=== PATIENT | male | born 1960 | race Caucasian/White ===

== ENCOUNTER 2018-11-07 15:38 | Emergency (ER) | payer MEDICARE, SELFPAY ==
[2018-11-07 15:41] VITALS: BP 114/70; PULSE 70; RESP 17; TEMP 36.7; O2SAT 96; BMI 25.0
--- NOTE | 2018-11-07 17:20 | US_ITS ---
STUDY: VENOUS DOPPLER ULTRASOUND - RIGHT LOWER EXTREMITY REASON FOR EXAM: Male, 58 years old. Swelling, rule out DVT TECHNIQUE: Ultrasound evaluation of the deep vein system to include humphrey-scale imaging and compression was performed. Humphrey-scale imaging and Doppler sonographic evaluation, including duplex spectral analysis and qualitative color flow sonography, was performed. COMPARISON: None. FINDINGS: Common Femoral Vein: Normal compression, spontaneity and augmentation. Normal color Doppler. Common Femoral Vein/Greater Saphenous Junction: Normal compression, spontaneity and augmentation. Normal color Doppler. Femoral Proximal: Normal compression, spontaneity and augmentation. Normal color Doppler. Femoral Middle: Normal compression, spontaneity and augmentation. Normal color Doppler. Femoral Distal: Normal compression, spontaneity and augmentation. Normal color Doppler. Popliteal Vein: Normal compression, spontaneity and augmentation. Normal color Doppler. US/Venous Duplex Imag/Limited/Uni IMPRESSION: Normal venous Doppler ultrasound of the lower extremity. Electronically Signed: Ranjit Paz DO at 18:27 EDT Tel , Service support ,
[2018-11-07 17:51] LABS: Absolute Lymphocyte Count 2.79 X10^3/uL (0.83-4.51); Absolute Neutrophil Count 5.9 X10^3/uL (2.0-7.7); Eosinophil# 0.37 X10^3/uL; Eosinophils% 3.8 % (0-5); Hematocrit 49.5 % (40-54); Hemoglobin 16.7 g/dL (13.0-16.5); Lymphocyte # 2.79 X10^3/ul (4.0); Lymphocyte % 28.5 % (19-41); Mean Corp Hgb Conc 33.7 g/dL (32-36); Mean Corpuscular Hgb 29.9 pg (27.0-32.0); Mean Corpuscular Volume 88.6 fL (80-94); Mean Platelet Vol. 10.1 fl (6.2-12.0); Monocyte# 0.56 X10^3/uL; Monocyte% 5.7 % (0-10); NRBC Flagged by Analyzer 0 % (0-5); Neutrophil # 5.92 X10^3/uL (2.7-7.7); Neutrophil % 60.6 % (47-70); Platelet Count 184 K/mm3 (150-450); RBC Distribution Width CV 15.3 % (11.6-14.6); RBC Distribution Width SD 49.6 fl (35.1-43.9); Red Blood Count 5.59 M/mm3 (4.6-6.2); White Blood Count 9.8 K/mm3 (4.4-11.0)
[2018-11-07] MEDS: Morphine 4 MG/ML Syringe IV (17:55)
[2018-11-07 18:04] LABS: Anion Gap 7 (5-15); BUN 21 mg/dL (7-18); BUN/Creat Ratio 15.8 RATIO (10-20); Calcium,Total 9.2 mg/dL (8.5-10.1); Chloride 101 mmol/L (98-107); Creatinine, Serum 1.33 mg/dL (0.70-1.30); EST Glomerular Filtration Rate 59 mL/min (>60); Est Glom Filt Rate - Afr Amer 71 mL/min (>60); Estimated Creatinine Clearance 57.98 ml/min; Glucose 82 mg/dL (74-106); Sodium Level 138 mmol/L (136-145)
--- NOTE | 2018-11-07 19:13 | ED.DCSUM_ITS ---
- ER Visit Summary Date of Service: 11/07/18 Chief Complaint: Right leg pain History of Present Illness: The patient is a 58 M who presents with pain in his right lower extremity that has been getting progressively worse over the past week. She describes the pain as sharp, aching, and burning. Patient does admit to some tingling in his right foot. Patient states that sometimes when he is standing on his foot it becomes more red than usual. Denies any fevers or chills. Patient does admit to some mild back pain. Patient denies any weakness. Patient denies any coldness of his foot. Physical Examination: Vital signs are stable. Patient is afebrile. Patient is in no acute distress. Heart was regular rate and rhythm. Lungs are clear and equal bilateral. Abdomen is soft and nontender. Cranial nerves II through XII are intact. There are no focal motor or sensory deficits noted. Skin is warm dry. There is some mild erythema over the dorsum of the right foot. There is no warmth. There is no discharge or drainage. There is some mild tenderness of the right lower leg. Test Results: CBC and basic metabolic profile were obtained and were within normal limits with exception of a mild elevation of creatinine of 1.33. Venous duplex of the right lower extremity was obtained and was negative. Emergency Department Course and Treatment: Patient became concerned that he has a cyst on his back that drains occasionally. Patient states he was told that this goes into his final canal. Patient states that a doctor once told him that he needed to put a tube in there to continuously drain the cyst. On reevaluation the cyst appeared to be a sebaceous cyst. Moderate amount of sebaceous material was expressed. There is no erythema. There is no discharge or drainage. Patient was advised that his leg pain may be related to neuropathy. Patient was advised that it is not from a DVT or cellulitis. It is not from an acute vascular occlusion. Patient was instructed to follow-up with his primary care physician for further evaluation. Patient understood and was agreeable with the plan. All questions were answered. Disposition: Discharge home Impression: 1. Right lower extremity pain This note was generated with Snipiation software. It may contain incorrect words, spelling, and punctuation that were not noted in review of the chart ulysses or to signing ED Disposition - Plan for ED Patient: Disposition: Home or Assisted Living Diagnosis: Right leg pain Instructions: NEUROPATHY, Peripheral Prescriptions: Oxycodone HCl/Acetaminophen [Percocet 5/325] 1 tab PO Q6H PRN PRN 3 Days #12 tab PRN Reason: Pain Prescription Printed Referrals: Care Physician,No Primary [Primary Care Provider] - Paulette Evans MD [STAFF PHYSICIAN] - 3-5 Days
[2018-11-07 19:45] VITALS: BP 118/76; PULSE 72; RESP 17; O2SAT 97
--- NOTE | 2018-11-07 20:19 | ED.RN ---
PT STATED HE IS ALLERGIC TO PERCOCET, MADE AWARE, NO NEW PRESCRIPTION WAS WRITTEN ADVISED PT TO TAKE OTC PAIN MEDICATIONS UNTIL HIS APPOINTMENT WITH PCP. WILL ADD PERCOCET TO PT ALLERGY LIST. PERCOCET PRESCRIPTION WAS PLACED IN THE SHREDDER BOX, DR. SIGALA WITNESSED DESTRUCTION OF SAID PRESCRIPTION.
== END 2018-11-07 19:48 | disposition home or self-care (01) ==
PROVIDERS: Emergency Provider Emergency Medicine
DX: M79.604 Pain in right leg (principal); L72.3 Sebaceous cyst; M54.9 Dorsalgia, unspecified; I25.10 Atherosclerotic heart disease of native coronary artery without angina pectoris; J45.909 Unspecified asthma, uncomplicated; J02.9 Acute pharyngitis, unspecified; Z72.0 Tobacco use; Z79.84 Long term (current) use of oral hypoglycemic drugs; Z79.02 Long term (current) use of antithrombotics/antiplatelets; Z79.82 Long term (current) use of aspirin; Z79.899 Other long term (current) drug therapy; Z95.0 Presence of cardiac pacemaker
CPT/HCPCS: 80048; 85025; 93971; 96374; 99283; A4216

== ENCOUNTER → 2018-11-11 10:25 | Outpatient (CLI) | payer MEDICARE, SELFPAY ==
[2018-11-07 15:41] VITALS: BMI 25.0
--- NOTE | 2018-11-11 10:31 | ART_ITS ---
Reason For Study: Foot pain,numbness and tingling. Procedure A bilateral lower extremity continuous wave Doppler with analog waveform analysis and ankle brachial indexes. Left Segmental Pressures Left brachial= 100mmHg. Left posterior tibial artery = 60mmHg. The left posterior tibial artery waveforms are monophasic. Right Segmental Pressures Right brachial= 103mmHg. Right dorsalis pedis artery = 40mmHg. The right dorsalis pedis waveforms are monophasic. Indices The right ankle brachial index by the dorsalis pedis is 0.39. The left ankle brachial index by the posterior tibial artery is 0.58. Interpretation Summary No flow noted in the right posterior tibial artery Severe, multisegmental disease right tibialis anterior Moderately severe disease left posterior tibial No flow noted in the left tibial anterior Digital waveforms are flat bilateral consistent with severe multisegmental disease/impending loss. Ordering Physician: Oarl Manuel Referring Physician: Oral Manuel Performed By: Frances Barrera RVT
== END ==
PROVIDERS: Family Provider Family Medicine; PCP Family Medicine; Referring Provider Family Medicine; Visit Provider Family Medicine
DX: R20.0 Anesthesia of skin (principal); R20.2 Paresthesia of skin
CPT/HCPCS: 93922

== ENCOUNTER → 2018-12-05 17:28 | Outpatient (CLI) | payer MEDICARE, SELFPAY ==
[2018-11-15 14:01] VITALS: BMI 25.0
--- NOTE | 2018-12-05 17:35 | RAD_ITS ---
STUDY: X-RAY - LUMBAR SPINE REASON FOR EXAM: Male, 58 years old. Low back pain, prior traumas TECHNIQUE: 3 view(s) of the lumbar spine were obtained. COMPARISON: None FINDINGS: Normal lumbar lordosis. There is no substantial scoliosis. There is a normal alignment of the vertebrae. Mineralization is diffusely decreased. Normal vertebral bodies and endplates. Normal disc space heights. The soft tissue structures are unremarkable. Cholecystectomy clips are in place. Pacemaker lead is present in the right ventricle. RAD/Lumbar Spine 2 or 3 Views IMPRESSION: Osteopenia, possibly early osteoporosis. Otherwise unremarkable age-appropriate lumbar spine. Electronically Signed: Oumar Sun, at 18:44 EDT Tel , Service support ,
[2018-12-05 18:11] LABS: Amphetamine Urine VISTA NEGATIVE (<1000 ng/mL); Barbiturate Urine VISTA NEGATIVE (< 200 ng/mL); Benzodiazepine Urine VISTA NEGATIVE (< 200 ng/mL); Cocaine Urine VISTA NEGATIVE (< 300 ng/mL); Ecstacy Urine VISTA NEGATIVE (< 500 ng/mL); Methadone Urine VISTA NEGATIVE (< 300 ng/mL); PCP Urine VISTA NEGATIVE (< 25 ng/mL); THC Urine VISTA NEGATIVE (< 50 ng/mL); Vista UDS pH Range 5
== END ==
PROVIDERS: Family Provider Family Medicine; PCP Family Medicine; Referring Provider Anesthesiology Pain Medicine; Visit Provider Anesthesiology Pain Medicine
DX: F11.20 Opioid dependence, uncomplicated (principal); M54.9 Dorsalgia, unspecified
CPT/HCPCS: 36415; 72100; 80307

== ENCOUNTER 2018-12-12 20:52 | Inpatient (IN) | payer MEDICARE, SELFPAY ==
[2018-11-15 14:01] VITALS: BMI 25.0
[2018-12-12 20:53] VITALS: BP 122/83; PULSE 99; RESP 23; TEMP 36.7; O2SAT 95; BMI 27.2
[2018-12-12 20:56] VITALS: PULSE 101; RESP 28; O2SAT 95
--- NOTE | 2018-12-12 21:10 | EKG12_ITS ---
Test Reason : CP Blood Pressure : / mmHG Vent. Rate : 101 BPM Atrial Rate : 101 BPM P-R Int : 174 ms QRS Dur : 128 ms QT Int : 380 ms P-R-T Axes : 042 109 060 degrees QTc Int : 492 ms Sinus tachycardia Right bundle branch block Anterolateral infarct , age undetermined Abnormal ECG Confirmed by YELENA TELLES ([id number]), news copy editor MARILUZ PAGE ([id number]) on 12/19/2018 9:01:20 AM Referred By: Shalini Marion Confirmed By:YELENA TELLES
--- NOTE | 2018-12-12 21:15 | RAD_ITS ---
STUDY: X-RAY CHEST REASON FOR EXAM: Male, 58 years old. Chest pain TECHNIQUE: Frontal view of the chest COMPARISON: None. FINDINGS: Left chest pacemaker is present. Mild pulmonary vascular prominence is present. There is no consolidation. There are no pleural effusions. There is no pneumothorax. The heart is normal in size. The visualized osseous structures are within normal limits. RAD/Chest 1 View (Portable) IMPRESSION: Mild pulmonary vascular prominence. No consolidation. Electronically Signed: Wilian Emerson, at 21:29 EDT Tel , Service support ,
[2018-12-12 21:16] VITALS: BP 114/75; PULSE 90
[2018-12-12] MEDS: Nitroglycerin SL (ED/IMG/CATH) 0.4 MG TABLET SUBLINGUAL ×2 (21:16→21:23)
[2018-12-12 21:18] LABS: Absolute Lymphocyte Count 3.53 X10^3/uL (0.83-4.51); Absolute Neutrophil Count 5.2 X10^3/uL (2.0-7.7); Basophil# 0.15 X10^3/uL; Basophil% 1.5 % (0-1); Eosinophil# 0.58 X10^3/uL; Eosinophils% 5.7 % (0-5); Hematocrit 49.5 % (40-54); Hemoglobin 16.6 g/dL (13.0-16.5); Lymphocyte # 3.53 X10^3/ul (4.0); Lymphocyte % 34.7 % (19-41); Mean Corp Hgb Conc 33.5 g/dL (32-36); Mean Corpuscular Hgb 30.5 pg (27.0-32.0); Mean Platelet Vol. 10.2 fl (6.2-12.0); Monocyte# 0.62 X10^3/uL; Monocyte% 6.1 % (0-10); NRBC Flagged by Analyzer 0 % (0-5); Neutrophil # 5.24 X10^3/uL (2.7-7.7); Neutrophil % 51.5 % (47-70); Platelet Count 244 K/mm3 (150-450); RBC Distribution Width CV 14.7 % (11.6-14.6); Red Blood Count 5.44 M/mm3 (4.6-6.2); White Blood Count 10.2 K/mm3 (4.4-11.0)
[2018-12-12 21:22] LABS: International Normalized Ratio 1.1; Prothrombin Time (Protime)PT. 13.7 SECONDS (11.7-14.9)
[2018-12-12 21:23] VITALS: BP 103/88; PULSE 96
[2018-12-12 21:23] LABS: Partial Thromboplast Time 30.9 Seconds (24.1-36.2)
[2018-12-12] MEDS: Morphine 4 MG/ML Syringe IV ×2 (21:32→22:55)
[2018-12-12 21:33] LABS: Anion Gap 5 (5-15); BUN 20 mg/dL (7-18); BUN/Creat Ratio 18.5 RATIO (10-20); Calcium,Total 9.4 mg/dL (8.5-10.1); Chloride 102 mmol/L (98-107); Creatinine, Serum 1.08 mg/dL (0.70-1.30); EST Glomerular Filtration Rate 75 mL/min (>60); Est Glom Filt Rate - Afr Amer 91 mL/min (>60); Glucose 112 mg/dL (74-106); Potassium 3.8 mmol/L (3.5-5.1); Sodium Level 137 mmol/L (136-145)
--- NOTE | 2018-12-12 22:08 | CT_ITS ---
HISTORY: CHEST PAIN, HX ASTHMA, COPD,CVA, PVD, HTN ADDITIONAL HISTORY: None provided. TECHNIQUE: CT angiogram images of the chest were obtained with 100 mL Isovue 370 IV contrast as per pulmonary angiogram protocol. 3D MIP images used to aid in evaluation for pulmonary embolism. Number of images including paperwork: 1264 A radiation dose optimization technique was used for this scan. COMPARISON: None FINDINGS: Artifact from the patient's arms in support apparatus. PULMONARY ARTERIES: No pulmonary arterial filling defects. AORTA AND GREAT VESSELS: No dissection. Vascular tortuosity. Moderate atherosclerotic plaque. HEART/PERICARDIUM: Mildly enlarged heart. Coronary calcification, coronary stenting and CABG changes. MEDIASTINUM: Unremarkable. ADENOPATHY: Small mediastinal and hilar nodes, largest borderline by size criteria. THYROID: Unremarkable visualized portions. LUNG PARENCHYMA: No consolidation or mass. Dependent atelectasis. 5 mm subpleural left lower lobe lung nodule, series 2 image 99. Paraseptal emphysema at the apices. PLEURAL SPACES: Unremarkable. UPPER ABDOMEN: Unremarkable. OSSEOUS AND SOFT TISSUE STRUCTURES: No acute skeletal findings. CT/CTA Chest W/WO Contrast IMPRESSION: No pulmonary embolus detected. Left lower lobe 5 mm nodule. Consider follow-up in 12 months of the patient is considered to be high risk for lung cancer. Individualized dose optimization techniques were used for this CT. at 2183 Reported and signed by: Vania Osullivan MD Electronically Signed: Vania Osullivan MD at 22:39 EDT Tel , Service support ,
[2018-12-12 22:31] VITALS: BP 103/65; PULSE 82; RESP 16; O2SAT 96
--- NOTE | 2018-12-12 22:35 | EKG12_ITS ---
Test Reason : REPEAT Blood Pressure : / mmHG Vent. Rate : 077 BPM Atrial Rate : 077 BPM P-R Int : 162 ms QRS Dur : 136 ms QT Int : 396 ms P-R-T Axes : 033 107 062 degrees QTc Int : 448 ms Normal sinus rhythm Right bundle branch block Cannot rule out Inferior infarct , age undetermined Anterolateral infarct , age undetermined Abnormal ECG Confirmed by YELENA TELLES ([id number]), editor in chief MARILUZ PAGE ([id number]) on 12/19/2018 9:01:43 AM Referred By: Shalini Marion Confirmed By:YELENA TELLES
[2018-12-12 22:59] VITALS: BP 100/67; PULSE 76; RESP 15; O2SAT 96
--- NOTE | 2018-12-12 23:05 | ED.VIS.GEN ---
History of Present Illness Chief Complaint: Chest Pain Informant: Patient Onset: Today Narrative: Patient presents with sudden sharp midsternal chest pains at rest 1 hour prior to arrival. Pain down his left arm. Reports dyspnea diaphoresis. 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 He has an AICD. Patient reports his last heart caths was at [place] a year ago with no intervention. He cannot recall how many stents he has had however reports he has had to makers. Reports the CABG was in 2011 he had complications of infection with wires being removed, reports he was with hospice during that year however survive. History of hypertension, hypercholesterolemia, tobacco. Denies history diabetes. History of COPD no home oxygen. He is on baby aspirin and Plavix took them today. EMS gave patient additional 324 of aspirin gave 1 nitro which he states did not help. He was given morphine, states pain is currently a 7 out of 10. Reports feels similar to the previous MIs as he has had. States he moved to the area in March, currently does not follow a procedures tech. Reports most of his records are in [facility] and [place]. Prior similar symptoms: Yes Past Medical History - Allergies and Home Meds Allergies/Adverse Reactions: Allergies latex Allergy (Unknown, Verified 11/15/18 13:55) unknown acetaminophen [From Darvocet-N] Allergy (Verified 11/07/18 15:41) Anaphylaxis diphenhydramine [From Benadryl] Allergy (Verified 11/07/18 15:41) Rash hydrocodone [From Vicodin] Allergy (Verified 11/07/18 15:41) Anaphylaxis NSAIDS (Non-Steroidal Anti-Inflamma Allergy (Verified 11/07/18 15:41) Anaphylaxis oxycodone [From Percocet] Allergy (Verified 11/07/18 20:21) Anaphylaxis Penicillins Allergy (Verified 11/07/18 15:41) Anaphylaxis propoxyphene [From Darvocet-N] Allergy (Verified 11/07/18 15:41) Anaphylaxis Primary Care Physician: Oral Manuel MD [Primary Care Provider] - Smoking Status: Current every day smoker Review of Systems General: Denies: Chills, Fever, Sweats Eyes: Denies: Visual changes - bilaterally, Diplopia ENT: Denies: Rhinorrhea, Sore throat Cardiovascular: Reports: Chest pain. Denies: Palpitations Respiratory: Reports: Dyspnea. Denies: Cough, Dyspnea on exertion Gastrointestinal: Denies: Abdominal pain, Nausea, Vomiting, Diarrhea, Melena, Hematochezia Genitourinary: Denies: Dysuria, Hematuria, Frequency Musculoskeletal: Denies: Back pain, Extremity Pain Skin: Denies: Rash, Wounds Neurological: Denies: Headache, Weakness, Numbness Physical Exam Vital Signs/Narrative: Vital Signs Temp Pulse Resp BP Pulse Ox 12/12/18 22:59 76 15 100/67 96 12/12/18 22:31 82 16 103/65 96 12/12/18 21:23 96 103/88 H 12/12/18 21:16 90 114/75 12/12/18 20:56 101 H 28 H 95 12/12/18 20:53 98.1 F 99 23 H 122/83 H 95 Inital Vital Signs reviewed: Yes General: Well nourished, Well developed, No Acute Distress Head: Normocephalic, Atraumatic Eyes: Perrl, EOMI ENT: Moist mucous membranes, No rhinorrhea Neck: Supple, Nontender Cardiovascular: Regular rate, Regular rhythm, No murmurs, - - Mid line chest scar, concave, left upper chest AICD. Symmetric breath sounds. Respiratory: No distress, CTA bilaterally, Chest nontender Abdomen: Soft, Nontender, Nondistended, Normal bowel sounds Back: Nontender, Normal Inspection Extremities: Nontender, No edema Skin: Normal color, No rash Neurological: Alert, Oriented x3, Cranial nerves II-XII grossly intact, Normal Strength, Normal Sensation Psychological: Normal affect, Normal Mood Diagnostic/Tx/Re-eval Clinical Impression(s) from Imaging Studies Chest X-Ray 12/12/18 21:15 IMPRESSION: Mild pulmonary vascular prominence. No consolidation. Electronically Signed: Wilian Emerson, at 21:29 EDT Tel , Service support , Chest CTA 12/12/18 22:08 IMPRESSION: No pulmonary embolus detected. Left lower lobe 5 mm nodule. Consider follow-up in 12 months of the patient is considered to be high risk for lung cancer. Individualized dose optimization techniques were used for this CT. at 2239 Reported and signed by: Vania Osullivan MD Electronically Signed: Vania Osullivan MD at 22:39 EDT Tel , Service support , Abnormal Lab Results 12/12/18 12/12/18 12/12/18 21:00 21:00 21:00 WBC 10.2 RBC 5.44 Hgb 16.6 H Hct 49.5 MCV 91.0 MCH 30.5 MCHC 33.5 RDW Std Deviation 49.0 H RDW Coeff of Jack 14.7 H Plt Count 244 MPV 10.2 Immature Gran % (Auto) 0.500 Neut % (Auto) 51.5 Lymph % (Auto) 34.7 [place] % (Auto) 6.1 Eos % (Auto) 5.7 H Baso % (Auto) 1.5 H Absolute Neuts (auto) 5.2 Absolute Lymphs (auto) 3.53 Nucleated RBC % 0 PT 13.7 INR 1.1 APTT 30.9 Sodium 137 Potassium 3.8 Chloride 102 Carbon Dioxide 30.0 Anion Gap 5 BUN 20 H Creatinine 1.08 Estim Creat Clear Calc 71.40 Est GFR (MDRD) Af Amer 91 Est GFR (MDRD) Non-Af 75 BUN/Creatinine Ratio 18.5 Glucose 112 H Calcium 9.4 Troponin I 0.036 - EKG Initial EKG Interpretation: Sinus Rhythm - Sinus rate of 101, no ST changes. T wave inversions V1 to V3, right bundle branch block. No old for comparison. EKG #2 at 2247: Unchanged. - Medical Decision Making Patient EKG with right bundle branch block and T wave inversion anterior leads there is no old for comparison. He received aspirin from EMS additional Plavix was taken at home earlier today. Additional nitro sublingual x2 was given no improvement of symptoms. Morphine x1 took his symptoms down to a 6. Cardiac work-up negative thus far with a troponin 0 0.036. Reported continued symptoms repeat EKG was unchanged. With sharp pain in his chest persisted I did obtain a CTA of the chest does not report any PE, no aortic pathology. Did note lung nodule 5 mm on the left. He is a smoker denies ever been told he had a lung nodule. Received additional dose of morphine due to his pain. Patient reports he feels much better than when he came in. Patient's heart score. Is currently a 5. Patient significant cardiac history and pain I spoke with on-call procedures tech Dr. Albert, updated patient's presentation history, will trend troponins at this point. No additional treatment. I spoke with hospitalist, Dr. Marion will admit to PCU for further management. ED Disposition - Plan for ED Patient: Disposition: [facility] Diagnosis: Acute chest pain, Abnormal EKG, Left lower lobe pulmonary nodule Referrals: Oral Manuel MD [Primary Care Provider] -
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
--- NOTE | 2018-12-12 23:47 | EKG12_ITS ---
Test Reason : Blood Pressure : / mmHG Vent. Rate : 086 BPM Atrial Rate : 086 BPM P-R Int : 150 ms QRS Dur : 134 ms QT Int : 410 ms P-R-T Axes : 036 109 -06 degrees QTc Int : 490 ms Normal sinus rhythm Right bundle branch block Anterolateral infarct , age undetermined Abnormal ECG When compared with ECG of 14-DEC-2018 05:00, MANUAL COMPARISON REQUIRED, DATA IS UNCONFIRMED Confirmed by DAVEY SMART, BALA ([id number]), film or videotape editor SHERIN LANGSTON ([id number] on 01/03/2019 1:32:44 PM Referred By: Shalini Mraion Confirmed By:JUAN MARISCAL MD
[2018-12-13] VITALS (50 sets, daily range): BP systolic 82–123; BP diastolic 42–102; PULSE 63–133; RESP 10–21; TEMP 36.5–38.6; O2SAT 89–97; BMI 26.0; BMI 26.4; BMI 26.3
[2018-12-13 00:11] LABS: Magnesium 2.2 mg/dL (1.6-2.6)
[2018-12-13] MEDS: 0.9% Normal Saline 1,000 ML 100 ML IV ×2 (00:15→18:28)
[2018-12-13] MEDS: Lisinopril 5 MG Tablet PO ×2 (01:21→10:08)
[2018-12-13] MEDS: Atorvastatin Calcium 40 MG Tablet PO ×2 (01:21→21:15)
[2018-12-13] MEDS: Gabapentin 300 MG Capsule PO ×4 (01:22→16:20)
[2018-12-13] MEDS: Gabapentin 600 MG Tablet PO ×4 (01:22→16:20)
[2018-12-13] MEDS: oxyCODONE HCl Cr 10 MG Tablet PO ×3 (01:23→21:15)
[2018-12-13] MEDS: HYDROmorphone 1 MG/ML Syringe IV ×3 (02:04→10:09)
--- NOTE | 2018-12-13 02:25 | NURSING ---
Pts primary rn aware of troponin of 4.36 at this time.
--- NOTE | 2018-12-13 02:33 | ECHOD_ITS ---
Reason For Study: CAD Procedure This was a 2D Doppler, Color Flow transthoracic echocardiogram. Exam performed portable in ICU/CCU. Left Ventricle Normal LV size. Moderately severe segmental systolic dysfunction (see wall motion). The estimated ejection fraction is 35 %. Septal [place] : Akinetic. [place] : Akinetic. There are regional wall motion abnormalities as specified. The rest of the wall segments are normal. Right Ventricle Normal RV size. ICD or pacer leads identified within the right ventricle. Normal systolic function. Atria Normal left atrium. Normal right atrium. Mitral Valve Normal mitral valve. Mild (1+) eccentric mitral valve insufficiency. Tricuspid Valve Normal tricuspid valve. Mild (1+) tricuspid valve insufficiency. Aortic Valve Trisinus/trileaflet aortic valve. Pulmonic Valve Normal pulmonic valve. Great Vessels Normal aortic root. Pericardium/Pleural No pericardial effusion. MMode/2D Measurements & Calculations LVIDd: 6.1 cm IVSd: 0.86 cm Ao root diam: 3.7 cm LVIDs: 4.7 cm LVPWd: 0.86 cm RVDd: 4.2 cm FS: 23.1 % LAV(MOD-bp): 49.6 ml LA A4 area: 19.9 cm2 LA dimension(2D): 4.2 cm LAV(MOD-bp) Indexed: 26.4 ml/m2 LAV(MOD-sp2): 40.0 ml LAV(MOD-sp4): 62.9 ml RA A4 area: 14.2 cm2 Time Measurements MV dec time: 0.21 sec Doppler Measurements & Calculations MV E max timmy: 98.2 cm/sec Lat Peak E' Timmy: 6.5 cm/sec Med Peak E' Timmy: 7.5 cm/sec MV A max timmy: 108.8 cm/sec E/E' lat: 15.0 E/E' med: 13.1 MV E/A: 0.90 Ao V2 max: 144.4 cm/sec LV V1 max: 112.3 cm/sec PA V2 max: 91.3 cm/sec Ao max P.3 mmHg LV V1 max P.1 mmHg PI end-d timmy: 120.6 cm/sec TR max timmy: 228.1 cm/sec TR max P.1 mmHg Interpretation Summary Normal LV size. Moderately severe segmental systolic dysfunction (see wall motion). The estimated ejection fraction is 35 %. The rest of the wall segments are normal. Mild (1+) eccentric mitral valve insufficiency. Mild (1+) tricuspid valve insufficiency. Ordering Physician: Shalini Marion Referring Physician: Shalini Marion Performed By: Alba Clark, YOANNA, RVT
[2018-12-13] MEDS: Enoxaparin 80 MG/0.8 ML Syringe SC (02:53)
--- NOTE | 2018-12-13 04:22 | NURSING ---
PT STATES HE HAS A LIVING WILL AND POA, BUT HE WANTS ALL OF THEM. SW CONSULTED.
[2018-12-13] MEDS: 0.9% Saline Lock 10 ML Syringe IV ×2 (04:44→10:13)
[2018-12-13 04:59] LABS: Absolute Lymphocyte Count 3.53 X10^3/uL (0.83-4.51); Absolute Neutrophil Count 4.5 X10^3/uL (2.0-7.7); Basophil# 0.13 X10^3/uL; Basophil% 1.4 % (0-1); Eosinophil# 0.53 X10^3/uL; Eosinophils% 5.8 % (0-5); Hematocrit 44.8 % (40-54); Hemoglobin 14.8 g/dL (13.0-16.5); Lymphocyte # 3.53 X10^3/ul (4.0); Lymphocyte % 38.6 % (19-41); Mean Corpuscular Hgb 30.4 pg (27.0-32.0); Mean Platelet Vol. 10.1 fl (6.2-12.0); Monocyte# 0.46 X10^3/uL; NRBC Flagged by Analyzer 0 % (0-5); Neutrophil # 4.45 X10^3/uL (2.7-7.7); Neutrophil % 48.8 % (47-70); Platelet Count 191 K/mm3 (150-450); RBC Distribution Width CV 14.8 % (11.6-14.6); RBC Distribution Width SD 50.6 fl (35.1-43.9); Red Blood Count 4.87 M/mm3 (4.6-6.2); White Blood Count 9.1 K/mm3 (4.4-11.0)
[2018-12-13 05:11] LABS: International Normalized Ratio 1.1; Prothrombin Time (Protime)PT. 14.4 SECONDS (11.7-14.9)
[2018-12-13 05:12] LABS: Partial Thromboplast Time 44.3 Seconds (24.1-36.2)
[2018-12-13 05:20] LABS: BUN 17 mg/dL (7-18); BUN/Creat Ratio 16.3 RATIO (10-20); Calcium,Total 8.8 mg/dL (8.5-10.1); Chloride 103 mmol/L (98-107); Cholesterol 127 mg/dL (200); Creatinine, Serum 1.04 mg/dL (0.70-1.30); EST Glomerular Filtration Rate 78 mL/min (>60); Est Glom Filt Rate - Afr Amer 95 mL/min (>60); Estimated Creatinine Clearance 74.15 ml/min; Glucose 121 mg/dL (74-106); Potassium 4.3 mmol/L (3.5-5.1); Sodium Level 136 mmol/L (136-145); Triglycerides 317 mg/dL
[2018-12-13 05:21] LABS: Anion Gap 4 (5-15); High Density Lipoprotein 23 mg/dL; Very Low Density Lipoprotein 63 mg/dL (5-40)
--- NOTE | 2018-12-13 05:55 | EKG12_ITS ---
Test Reason : AM Blood Pressure : / mmHG Vent. Rate : 074 BPM Atrial Rate : 074 BPM P-R Int : 164 ms QRS Dur : 140 ms QT Int : 400 ms P-R-T Axes : 042 109 062 degrees QTc Int : 444 ms Normal sinus rhythm Right bundle branch block Anterolateral infarct , age undetermined Abnormal ECG Confirmed by RADHA SMART, ALISON ([id number]), graphics editor SHERIN LANGSTON ([id number]) on 12/19/2018 1:13:01 PM Referred By: Shalini Marion Confirmed By:ALISON GARCIA MD
[2018-12-13] MEDS: Aspirin E.C. 81 MG Tablet PO (07:03)
[2018-12-13] MEDS: Pantoprazole Sodium 40 MG Tablet PO (07:04)
[2018-12-13] MEDS: Clopidogrel Bisulfate 75 MG Tablet PO (07:04)
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
[2018-12-13] MEDS: Ipratropium/Albuterol Sulfate 3 ML AMPUL.NEB INHALATION (07:10)
--- NOTE | 2018-12-13 07:34 | NURSING ---
CONSENT SIGNED BY PT AND GIVEN TO FAVIOLA MARTINEZ. VERBAL REPORT GIVEN TO FAVIOLA MARTINEZ.
--- NOTE | 2018-12-13 08:40 | CL.D_ITS ---
Patient Name: SALAZAR HOLT Study Date: 12/13/2018 Performing: Kevin Albert MD Ht: 66.92 inches 170 cm : 1960 Wt: 169.76 lbs 77 kg Age: 58 Gender: male BSA: 1.88 PROCEDURE(S) PERFORMED [id number]/LV/CABG CLINICAL PROFILE AND INDICATIONS Indications: ACS <= 24 hrs Heart Failure: NYHA Class: 3, Newly Diagnosed: No, Heart Failure Type: Systolic Stress/Imaging Stress/Image Study Performed: No CONCLUSIONS Severe triple-vessel disease involving the pamunkey left anterior descending artery with in-stent steno sis and high-grade distal disease, left circumflex artery with in-stent stenosis of 95%, totally occl uded right coronary artery, totally occluded bypass grafts. RECOMMENDATIONS Referred for immediate PCI DESCRIPTION OF PROCEDURE The patient arrived to the procedure lab. The risks and benefits of the procedure as well as a full d escription of our services here and current unavailability of surgical backup were fully explained to the patient and/or their significant other prior to the catheterization. The Timeout was completed, verifying the correct patient and procedure. The patient's procedural site was prepped and draped in the usual fashion. Local anesthetic was given subcutaneously to right groin region with Lidocaine 2%. Using a modified Seldinger technique, arterial access was obtained via the right femoral artery, a 5 Fr sheath was inserted. Left Coronary Artery selective angiography was performed in multiple views u sing a 5 Fr. JL4 catheter. Right Coronary Artery selective angiography was then performed in multiple views using a 5 Fr. 3DRC (Anjum) catheter. Saphenous Vein graft to the unknown artery (occluded g raft) selective angiography was performed in single view using a 5 Fr. AR MOD catheter. Saphenous Vein graft to the unknown artery (occluded graft) selective angiography was performed in si ngle view using a 5 Fr. AR MOD catheter. Left Ventriculography was performed in REILLY projection using a 5 Fr. Pigtail catheter. LV to AO pullback pressures were then recorded. CORONARY ANGIOGRAPHY DOMINANCE: Right Dominant LEFT HEART ASSESSMENT Left Ventricular Ejection Fraction: by LV Gram 35 % Anterior Hypokinesis - Severe. Inferior Basal Akinesis Depressed Left Ventricular systolic function LEFT MAIN: Mild calcification LEFT ANTERIOR DESCENDING ARTERY: Nearly the entire vessel is stented with approximately 50 to 60% in- stent stenosis noted varying. The distal third has a focal narrowing of 85 to 90% stenosis with left -to-right collaterals from the apex. CIRCUMFLEX ARTERY: MID CIRC: Previously placed stent has an instent 95 % restenosis RIGHT CORONARY ARTERY: PROX RCA: is occluded GRAFTS: Saphenous Vein graft to the RPDA is totally occluded Saphenous Vein graft to the CIRC is totally occluded LEHMAN graft to the Mid LAD non functional COLLATERAL FLOW: Collateral flow from Left to Right COMPLICATIONS PROCEDURE MEDICATIONS Versed 1 mg IV Oxygen: 2 L/min via nasal cannula Heparin 6000 unit(s) IV 12/13/2018 08:26:33 SUMMARY OF HEMODYNAMIC DATA Time AIR REST ECG 07:43:59 AO 68/46 (56) SA 08:01:30 AO 84/51 (66) 08:01:49 AO 86/51 (66) 08:02:51 LV 80/2, 12 08:15:57 LV 84/3, 14 08:16:03 LV 91/-1, 21 08:16:49 LVp 89/-2, 21 08:16:54 AOp 94/45 (63) 08:16:59 AO 110/59 (78) 08:33:57 Signed By Kevin Albert MD On 12/13/2018 8:39:14 AM Kevin Albert MD
--- NOTE | 2018-12-13 09:28 | CL.I_ITS ---
Patient Name: SALAZAR HOLT Study Date: 12/13/2018 Performing: Damien Melo MD Ht: 66.92 inches 170 cm : 1960 Wt: 169.76 lbs 77 kg Age: 58 Gender: male BSA: 1.88 PROCEDURE(S) PERFORMED [id number] W OR WO PTCA, SINGLE CORONARY ARTERY [id number] W OR WO PTCA, SINGLE CORONARY ARTERY CLINICAL PROFILE AND CO-MORBIDITIES Indications: ACS <= 24 hrs, ACS <= 24 hrs, New Onset Angina <= 2 months, Stable Known CAD Heart Failure: NYHA Class: 3, Newly Diagnosed: No, Heart Failure Type: Systolic, NYHA Class: 1, N ewly Diagnosed: No, Heart Failure Type: Systolic Stress/Imaging Stress/Image Study Performed: No Stress/Image Study Performed: No Angina Classification Anginal Classification w/in 2 Weeks: CCS III CAD Presentations: Non-STEMI. Symptom onset Date/Time: 12/12/2018 Time Not Available Comorbidities/Risk Factors: Current/Recent Smoker (< 1year) Hypertension Dyslipidemia Prior CHF Prior PCI Prior PCI CONCLUSIONS Successful PTCA/ROYCE mid LCX with a 2.5 x 10 Angiosculpt, followed by a 2.5 x 38 Promus Synergy, post dilated with a 3.0 x 12 NC Balloon; 85%-->0%, no dissection. Pt had identical CP during deployment. Successful PTCA/ROYCE distal LAD with a 2.25 x 20 Promus Synergy, post dilated with a 2.25 x 12 and 2.5 x 12 NC Balloon; 85%-->0%, no dissection. RECOMMENDATIONS Highly recommend quitting all tobacco products Follow up with primary dust puller Risk factor modification ASA Indefinitley Plavix for at least 12 months Routine post interventional care Refer for Outpatient Cardiac Rehab Manual sheath removal per protocol Follow up with Dr. Albert Manual sheath removal out of concern for infection. D/w Dr Cleveland. DESCRIPTION OF PROCEDURE The patient arrived to the procedure lab. The risks and benefits of the procedure as well as a full d escription of our services here and current unavailability of surgical backup were fully explained to the patient and/or their significant other prior to the catheterization. The Timeout was completed, verifying the correct patient and procedure. The patient's procedural site was prepped and draped in the usual fashion. Local anesthetic was given subcutaneously to right groin region with Lidocaine 2% Using a modified Seldinger technique,arterial access was obtained via the right femoral artery, a 5Fr sheath was inserted. Left Coronary Artery selective angiography was performed in multiple views usin g a 5 Fr. JL4 catheter. Right Coronary Artery selective angiography was then performed in multiple vi ews using a 5 Fr. 3DRC (Anjum) catheter. Saphenous Vein graft to the unknown artery (occluded christiana t) selective angiography was performed in single view using a 5 Fr. AR MOD catheter. Saphenous Vein graft to the unknown artery (occluded graft) selective angiography was performed in si ngle view using a 5 Fr. AR MOD catheter. Left Ventriculography was performed in REILLY projection using a 5 Fr. Pigtail catheter. LV to AO pullback pressures were then recorded. Arterial sheath was exchanged for a 55cm 6 Fr Sheath. EBU 3.75 Guide catheter was inserted and en gaged into the LCA. [employer] [place] Guide wire was advanced to the Circumflex. Emerge 2.0 x 12 Balloon catheter was inserted. Balloon catheter was advanced across lesion in the circumflex, mid. PTCA ballo on inflated at 6 atms for 9 secs. PTCA balloon inflated at 8 atms for 8 secs. PTCA balloon inflated a t 8 atms for 8 secs. PTCA balloon inflated at 8 atms for 9 secs. Angiosculpt 2.5 x 10 Cutting balloon catheter was inserted Angiosculpt 2.5 x 10 Cutting balloon catheter was inserted Cutting balloon cat heter was advanced to the lesion in the circumflex, mid. Cutting balloon catheter was advanced to the lesion in the circumflex, mid. Synergy 2.5 x 38 Drug Eluting stent was inserted. Drug Eluting stent was advanced across the lesion in the circumflex, mid. NC Emerge 3.0 x 12 Balloon catheter was insert ed. Balloon catheter was advanced across lesion in the circumflex, mid. Angiogram performed post balloon dilatation. [employer] [place] Guide wire was repositioned to the LAD Emerge 2.0 x 12 Balloon catheter was reinserted Balloon catheter was advanced across lesion in the LAD, distal. PT CA balloon inflated at 6 atms for 7 secs. PTCA balloon inflated at 6 atms for 6 secs. PTCA balloon in flated at 6 atms for 5 secs. PTCA balloon inflated at 6 atms for 6 secs. PTCA balloon inflated at 4 a tms for 8 secs. Synergy 2.25 x 20 Drug Eluting stent was inserted. Drug Eluting stent was advanced ac ross the lesion in the LAD, distal. Balloon catheter was inserted. NC Emerge 2.5 x 12 Balloon cathete r was inserted. Balloon catheter was advanced across lesion in the LAD, distal. NC Emerge 2.25 x 12 B alloon catheter was inserted. Balloon catheter was advanced across lesion in the LAD, distal. Arteria l sheath was exchanged for a 11cm 6 Fr Sheath. The arterial sheath was sutured in place and capped INTERVENTION INFORMATION LESION SITE: Circumflex (Mid) Lesion Complexity: High/C, lesion at bifurcation: No, thrombus present: No, lesion length: 38 mm, cul prit lesion: Yes, In-stent restenosis: Yes Pre Stenosis: 85 % Pre intervention VIKKI flow: 3 PROCEDURE: Balloon Angioplasty, Cutting Balloon Angioplasty, Drug Eluting Stent with pre and post dilatation Post Stenosis: 0 % Post intervention VIKKI flow: 3 Lesion Devices: Medtronic 6 Fr EBU3.75 100cm Guide Catheter Cook 6F 55cm Sheath Cabrera .014 [employer] [place] Straight 190cm Vadim Sci EMERGE MR 2.00x12 BALLOON [employer] Angiosculpt RX 2.5x10 Scoring Balloon Vadim Sci Synergy MR ROYCE 2.50x38 Vadim Sci NC EMERGE MR 3.00x12 BALLOON LESION SITE: LAD (Distal) Lesion Complexity: High/C, lesion at bifurcation: No, thrombus present: No, lesion length: 20 mm, cul prit lesion: No, In-stent restenosis: Yes Pre Stenosis: 85 % Pre intervention VIKKI flow: 3 PROCEDURE: Balloon Angioplasty Drug Eluting Stent with pre and post dilatation Post Stenosis: 0 % Post intervention VIKKI flow: 3 Lesion Devices: Medtronic 6 Fr EBU3.75 100cm Guide Catheter Cabrera .014 [employer] [place] Straight 190cm Vadim Sci EMERGE MR 2.00x12 BALLOON Vadim Sci Synergy MR ROYCE 2.25x20 Vadim Sci NC EMERGE MR 2.50x12 BALLOON Vadim Sci NC EMERGE MR 2.25x12 BALLOON COMPLICATIONS No Complications PROCEDURE MEDICATIONS Versed 1 mg IV Versed 1 mg IV Oxygen: 2 L/min via nasal cannula Heparin 6000 unit(s) IV 12/13/2018 08:26:33 Nitro 200 mcg IC 12/13/2018 09:04:58 IV Bolus: .9 NaCl 1100 ml total 12/13/2018 09:15:31 SUMMARY OF HEMODYNAMIC DATA Time AIR REST ECG 07:43:59 AO 68/46 (56) SA 08:01:30 AO 84/51 (66) 08:01:49 AO 86/51 (66) 08:02:51 LV 80/2, 12 08:15:57 LV 84/3, 14 08:16:03 LV 91/-1, 21 08:16:49 LVp 89/-2, 21 08:16:54 AOp 94/45 (63) 08:16:59 AO 110/59 (78) 08:33:57 Signed By Damien Melo MD On 12/13/2018 9:28:14 AM Damien Melo MD
--- NOTE | 2018-12-13 09:57 | EKG12_ITS ---
Test Reason : CP ADMIT Blood Pressure : / mmHG Vent. Rate : 071 BPM Atrial Rate : 071 BPM P-R Int : 162 ms QRS Dur : 136 ms QT Int : 414 ms P-R-T Axes : 037 099 074 degrees QTc Int : 449 ms Normal sinus rhythm Right bundle branch block Anterolateral infarct , age undetermined Abnormal ECG Confirmed by RADHA SMART, ALISON ([id number]), script editor SHERIN LANGSTON ([id number]) on 12/19/2018 1:13:22 PM Referred By: Shalini Marion Confirmed By:ALISON GARCIA MD
[2018-12-13] MEDS: DOPamine IV 800 MG/250 ML IV.SOLN. 7.2 MG CONT INF (10:00)
[2018-12-13] MEDS: 0.9% Normal Saline 1,000 ML 150 ML IV (10:00)
[2018-12-13] MEDS: Metoprolol(XL)Succ 100 MG Tablet PO (10:08)
[2018-12-13] MEDS: Ondansetron 4 MG/2 ML Vial IV (10:09)
--- NOTE | 2018-12-13 10:09 | CASEMGMT ---
RN CM Assessment Presentation: NSTEMI. Intro role of CM and purpose of RN CM assessment to patient and significant other, Brit. Demographics, PCP and Pharmacy verified. Per Brit, pt is independent, uses cane intermittently. No care needs at this time. Brit will be able to assist pt on dc. PCP: Dr. Manuel. Pt compliant with f/u. Specialists: Dr. Albert, Cardiology, Dr. Maicol Palma who referred pt to vascular surgeon @ [facility]. Preferred Pharmacy: [facility] [place] Insurance: [employer] Medicare PPO Prescription Benefit: yes. Plavix ordered- pt was on prior to admission. LNOK: Significant Other, Birt Thomson Living Arrangements: Lives independently with significant other, Brit Transportation: drives, or fiance Brit will drive DME: cane only. HHC: none SW Consult: Pt would like to complete Adv Dir Patient DC goals: Home DC PLAN: Home Qing SAMUELS RN ACM
[2018-12-13] MEDS: Furosemide 40 MG Tablet PO (10:10)
--- NOTE | 2018-12-13 11:00 | CRPHASE1_ITS ---
Patient Communication PHII Cardiac Rehab Discussed with Patient:: Yes Guide to Cardiac Rehab Given to Patient:: Yes Cardiac Rehab Facility Choice List Given to Patient:: Yes Choice Program [facility] CR PHII:: Communication Given to CR, Refer to [facility] Solutions Development Analyst:: Damien Melo PCP:: Oral Manuel - PT NOT SURE OF NAME Refer Phase II Cardiac Rehab:: Yes Sessions:: 36 sessions - 3 days/wk, 12 weeks Risk Factors/Lifestyle Hx Hypertension: Yes Hx Dyslipidemia: Yes Height: 5 ft 7 in Weight:: 168 lb BMI: 26.3 Family History: Family History (Last Updated 11/15/18 @ 13:53 by Dana Sanabria) Sister CVA (cerebral vascular accident) Heart disease Hypertension High cholesterol Diabetes Cancer Father Arthritis Cancer Mother Arthritis Cancer Laboratory Values: Cardiac Rehab Phase I Labs Triglycerides 317 mg/dL (-199) H 12/13/18 04:50 Cholesterol 127 mg/dL (200) 12/13/18 04:50 LDL Cholesterol 41 mg/dL (0-130) 12/13/18 04:50 HDL Cholesterol 23 mg/dL (40-) L 12/13/18 04:50 Phase I Education Given On:: [place], Nutrition, Antiplatelet medication, CHF, Smoking cessation, Diabetes - Type I, Diabetes - Type II Comments:: PT SHOWED VERY LITTLE INTEREST IN DISCUSSING CR PROGRAM, HEALTH HX ECT. STATES HE WAS IN 2 OTHER CR PROGRAMS IN THE PAST AT OTHER LOCATIONS. Medical/Surgical History CAD:: Yes COPD:: Yes Asthma:: Yes Hypertension:: Yes Dyslipidemia:: Yes PVD:: Yes GERD:: Yes Depression:: Yes Anxiety:: Yes CABG: Yes PTCA:: Yes - PT DID NOT WANT TO DISCUSS PRESENT/PAST HEALTH HX AT THIS TIME Pacemaker:: Yes Discharge/Home/Social Eval Discharge Disposition: Home Cardiac Rehabilitation Info Cardiac Rehabilitation Program Information: Cardiac Rehabilitation is important for patients like you who are recovering from a heart problem. Cardiac rehabilitation programs are recognized as integral to the continued care of the patient with coronary heart disease. The cardiac rehabilitation program is designed to optimize a patient's physical, psychological, and social functioning. Health rehab care assistant work in cardiac rehabilitation programs and assist you with getting the treatments you need to get stronger and healthier - like exercise, healthy eating habits, and medicatio ns. Cardiac rehabilitation has been show to help people with heart problems live longer and have better life enjoyment than people who do not go to cardiac rehabilitation. Please contact the Cardiac Rehabilitation Program at [facility] at in two weeks if you have not heard from them.
--- NOTE | 2018-12-13 11:07 | CRPH1.INSTRU ---
General Education CAD and cardiac anatomy and function:: Not instructed Explanation of diagnoses and procedures:: Not instructed Sign/Symptoms of [place]:: Not instructed Antiplatelet therapy: Needs reinforcement Proper use of NTG-SL: Not instructed Emergency procedures and activation of EMS: Needs reinforcement Compliance of all prescribed medications: Needs reinforcement - DISCUSSED ANTIPLATELET, EMS, MED COMPLIANCE WITH PT AND MEMBER AT BEDSIDE. OTHERWISE, PT HAD LITTLE INTEREST IN BEING ASKED QUESTIONS OR INFO BEING SHARED AT THIS TIME. Smoking Nicotine/Smoking Response Code:: Not instructed Dyslipidemia Dyslipidemia Response Code:: Not instructed Overweight/Obesity Overweight/Obesity:: Not instructed Hypertension Hypertension:: Not instructed Heart Disease Heart Disease Response Code:: Not instructed Diabetes Diabetes:: Not instructed Metabolic Syndrome Metabolic Syndrome Response Code:: Not instructed Sedentary Sedentary Response Code:: Not instructed Stress Stress Response Code:: Not instructed
[2018-12-13 11:15] LABS: ACT Activated Clotting Time 230 sec (74-137)
[2018-12-13] MEDS: levoFLOXacin IV 750 MG/150 ML BAG 100 MG IV (11:32)
[2018-12-13 11:45] LABS: ACT Activated Clotting Time 147 sec (74-137)
--- NOTE | 2018-12-13 16:11 | PCM.PN.HOSP ---
Patient Problems: Active and Suspected Problems (Last Reviewed 11/15/18 @ 13:51 by Dana Sanabria) Acute chest pain (Acute) Abnormal EKG (Acute) Left lower lobe pulmonary nodule (Acute) NSTEMI (non-ST elevated myocardial infarction) (Acute) Subjective: This morning prior to cardiac cath he was seen he still had a little bit of his chest pain but that it had improved. He also states he has chronic abdominal pain and his pain is about normal for him because he says that he has an aneurysm as well as a hernia. Vitals/I&O's: Vital Signs Temp Pulse Resp BP Pulse Ox 97.8 F 94 18 99/51 L 95 12/13/18 09:45 12/13/18 15:49 12/13/18 14:30 12/13/18 14:30 12/13/18 14:30 Oxygen Flow Rate (L/min) 3.5 Oxygen Delivery Method Room Air Weight: 168 lb Body Mass Index (BMI) 26.4 Intake and Output for Last 24 Hours 12/11/18 12/12/18 12/13/18 23:59 23:59 23:59 Intake Total 1278.8 / 1278.8 Balance 1278.8 / 1278.8 General: Alert, Oriented x3, Cooperative, No apparent distress HEENT: Atraumatic, PERRLA, EOMI, Normocephalic Oral: Moist Mucosa Neck: Supple, No JVD Lungs: Clear to auscultation, Normal air movement, No rhonchi, No wheeze, No rales, Diminished Cardiovascular: Regular rate, Regular Rhythm, Normal S1, Normal S2, No murmurs Abdomen: Soft, Non Tender, Non-Distended, No Hepato-splenomegaly Extremities: No edema, Capillary Refill Less than 3 Seconds Skin: No rashes, No breakdown Neurological: Neuro grossly intact, Sensory exam intact to light touch and pain Psych/Mental Status: Normal Affect, Appropriate Laboratory Results 12/12/18 21:00: WBC 10.2, RBC 5.44, Hgb 16.6 H, Hct 49.5, MCV 91.0, MCH 30.5, MCHC 33.5, RDW Std Deviation 49.0 H, RDW Coeff of Jack 14.7 H, Plt Count 244, MPV 10.2, Immature Gran % (Auto) 0.500, Neut % (Auto) 51.5, Lymph % (Auto) 34.7, [place] % (Auto) 6.1, Eos % (Auto) 5.7 H, Baso % (Auto) 1.5 H, Absolute Neuts (auto) 5.2, Absolute Lymphs (auto) 3.53, Nucleated RBC % 0 12/12/18 21:00: PT 13.7, INR 1.1, APTT 30.9 12/12/18 21:00: Sodium 137, Potassium 3.8, Chloride 102, Carbon Dioxide 30.0, Anion Gap 5, BUN 20 H, Creatinine 1.08, Estim Creat Clear Calc 71.40, Est GFR (MDRD) Af Amer 91, Est GFR (MDRD) Non-Af 75, BUN/Creatinine Ratio 18.5, Glucose 112 H, Calcium 9.4, Troponin I 0.036 12/12/18 21:00: Magnesium 2.2 12/13/18 01:54: Troponin I 4.360 H* 12/13/18 04:50: WBC 9.1, RBC 4.87, Hgb 14.8, Hct 44.8, MCV 92.0, MCH 30.4, MCHC 33.0, RDW Std Deviation 50.6 H, RDW Coeff of Jack 14.8 H, Plt Count 191, MPV 10.1, Immature Gran % (Auto) 0.400, Neut % (Auto) 48.8, Lymph % (Auto) 38.6, [place] % (Auto) 5.0, Eos % (Auto) 5.8 H, Baso % (Auto) 1.4 H, Absolute Neuts (auto) 4.5, Absolute Lymphs (auto) 3.53, Nucleated RBC % 0 12/13/18 04:50: Sodium 136, Potassium 4.3, Chloride 103, Carbon Dioxide 29.0, Anion Gap 4 L, BUN 17, Creatinine 1.04, Estim Creat Clear Calc 74.15, Est GFR (MDRD) Af Amer 95, Est GFR (MDRD) Non-Af 78, BUN/Creatinine Ratio 16.3, Glucose 121 H, Calcium 8.8, Troponin I 5.200 H*, Triglycerides 317 H, Cholesterol 127, LDL Cholesterol 41, VLDL Cholesterol 63 H, HDL Cholesterol 23 L 12/13/18 04:50: PT 14.4, INR 1.1, APTT 44.3 H 12/13/18 09:13: Activated Clotting Time 230 H 12/13/18 11:33: Activated Clotting Time 147 H Current Medications Al Hydroxide/Mg Hydroxide (Mylanta Ii) 15 - 30 ml PO Q4H PRN PRN PRN Reason: INDIGESTION Albuterol Sulfate (Ventolin Aerosols) 2.5 mg INHALATION Q2H PRN PRN PRN Reason: dyspnea, wheezing Albuterol/Ipratropium (Duoneb) 3 ml INHALATION Q6HWA.RT [facility] Last Admin: 12/13/18 13:30 Dose: Not Given Documented by: Alendronate Sodium (Fosamax) 5 mg PO DAILY@0600 [facility] Last Admin: 12/13/18 04:34 Dose: 5 mg Documented by: Amitriptyline HCl (Elavil) 25 mg PO QHS [facility] Aspirin (Ecotrin) 81 mg PO DAILY@0800 [facility] Last Admin: 12/13/18 07:03 Dose: 81 mg Documented by: Atorvastatin Calcium (Lipitor) 40 mg PO QHS [facility] Last Admin: 12/13/18 01:21 Dose: 40 mg Documented by: Atropine Sulfate () 0.5 mg IV UD PRN PRN Reason: HR <50 bpm Clopidogrel Bisulfate (Plavix) 75 mg PO DAILY [facility] Last Admin: 12/13/18 07:04 Dose: 75 mg Documented by: Dextrose (D50w Syringe) 0 gm IV X1 PRN; Protocol PRN Reason: Hypoglycemia Diazepam (Valium) 5 mg PO Q6H PRN PRN PRN Reason: BACK SPASMS/ANXIETY Furosemide (Lasix) 40 mg PO DAILY [facility] Last Admin: 12/13/18 10:10 Dose: 40 mg Documented by: Gabapentin (Neurontin) 300 mg PO TIDCM [facility] Last Admin: 12/13/18 12:34 Dose: 300 mg Documented by: Gabapentin (Neurontin) 600 mg PO TIDCM [facility] Last Admin: 12/13/18 12:34 Dose: 600 mg Documented by: Glucagon () 1 mg IM .X1 PRN PRN Reason: Hypoglycemia Heparin Sodium (Beef Lung) (Heparin 500 Unit/5 Ml (100/Ml)) 500 unit IV UD PRN PRN Reason: HEPARIN FLUSH Hydralazine HCl (Apresoline Iv) 10 mg IV Q4H PRN PRN PRN Reason: SBP > 160 Hydromorphone HCl (Dilaudid Inj) 1 mg IV Q2H PRN PRN PRN Reason: Pain Score 6-10 Last Admin: 12/13/18 10:09 Dose: 1 mg Documented by: Sodium Chloride () 1,000 mls @ 100 mls/hr IV .Q10H [facility] Last Infusion: 12/13/18 11:24 Dose: Infused Documented by: Sodium Chloride () 1,000 mls @ 15 mls/hr IV .Q48H [facility] Last Admin: 12/13/18 10:10 Dose: Not Given Documented by: Levofloxacin (Levaquin Iv) 750 mg in 150 mls @ 100 mls/hr IV Q24 [facility] Last Infusion: 12/13/18 13:30 Dose: Infused Documented by: Sodium Chloride () 1,000 mls @ 150 mls/hr IV .Q6H40M [facility] Stop: 12/13/18 16:36 Last Admin: 12/13/18 10:00 Dose: 150 mls/hr Documented by: Dopamine HCl/Dextrose () 800 mg in 250 mls @ 7.172 mls/hr CONT INF .[id number] [facility]; Protocol Stop: 12/14/18 10:16 Last Titration: 12/13/18 14:00 Dose: 5 mcg/kg/min, 7.2 mls/hr Documented by: Labetalol HCl (Trandate) 5 mg IV X1 PRN PRN Reason: SBP > 160 when pulling sheath Lisinopril (Zestril) 5 mg PO DAILY [facility] Last Admin: 12/13/18 10:08 Dose: 5 mg Documented by: Magnesium Hydroxide (Milk Of Magnesia) 30 ml PO DAILY PRN PRN Reason: Constipation Metoprolol Succinate (Toprol Xl (Beta Shante)) 100 mg PO DAILY [facility] Last Admin: 12/13/18 10:08 Dose: 100 mg Documented by: Nitroglycerin (Nitrostat) 0.4 mg SUBLINGUAL Q5M PRN PRN Reason: CARDIAC/CHEST PAIN Nutritional Formula (Lactose Free) (Ensure Enlive) 120 ml PO 4X/DAY [facility] Last Admin: 12/13/18 13:25 Dose: Not Given Documented by: Ondansetron HCl (Zofran) 4 mg IV Q8H PRN PRN PRN Reason: NAUSEA/VOMITING Last Admin: 12/13/18 10:09 Dose: 4 mg Documented by: Oxycodone HCl (Oxycontin) 10 mg PO BID [facility] Last Admin: 12/13/18 10:08 Dose: 10 mg Documented by: Oxycodone HCl (Oxyir) 10 mg PO Q4H PRN PRN PRN Reason: Pain Score 6-10/10 Pantoprazole Sodium (Protonix) 40 mg PO DAILY [facility] Last Admin: 12/13/18 07:04 Dose: 40 mg Documented by: Potassium Chloride (K-Dur) 20 meq PO DAILY [facility] Last Admin: 12/13/18 07:03 Dose: 20 meq Documented by: Sodium Chloride () 10 - 40 ml IV UD PRN PRN Reason: SALINE FLUSH Last Admin: 12/13/18 10:13 Dose: 20 ml Documented by: Sodium Chloride () 500 ml IV BOLUS PRN PRN Reason: VASO-VAGAL PROTOCOL Temazepam (Restoril) 15 mg PO QHS PRN PRN PRN Reason: INSOMNIA STROKE Vital Signs/Narrative: Vital Signs Pulse Resp BP Pulse Ox 12/13/18 15:49 94 12/13/18 14:30 110 H 18 99/51 L 95 12/13/18 14:00 101 H 16 93/54 L 95 12/13/18 13:45 112 H 14 91/73 92 12/13/18 13:30 120 H 17 99/57 L 93 12/13/18 13:15 121 H 14 86/57 L 92 12/13/18 13:00 117 H 14 100/63 94 12/13/18 12:42 133 H 16 120/58 L 94 Medical Necessity - Tobacco Use Smoking Status: Current every day smoker Tobacco Use: Cigarettes Assessment/Plan All Active Problems (Last Reviewed 11/15/18 @ 13:51 by Dana Sanabria) Acute chest pain (Acute) Abnormal EKG (Acute) Left lower lobe pulmonary nodule (Acute) NSTEMI (non-ST elevated myocardial infarction) (Acute) 1. Chest pain secondary to an acute NSTEMI/CAD status post stents and CABG x3/HTN/HLD -His troponin was elevated and therefore even though he had no EKG changes he was taken for cardiac cath today. It was found that he had in-stent restenosis and had to have 2 stents deployed. After the procedure he had some hypotension with an EF of 20% and he was transferred to the ICU. -Continue with aggressive IV fluid rehydration as well as dopamine to support his blood pressures, will hold Lasix he is receiving IV fluids -Continue with aspirin and Plavix -Appreciate cardiology assistance -Continue with statin, -Continue to hold his blood pressure medications seeing as we have difficulty maintaining his blood pressures while on a dopamine drip 2. GERD/chronic dysphagia -His chronic dysphagia is from postop complications from his previous CABG. That point a sternal wire had caused a large infection in his sternum which had to be removed. 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 Chronic COPD/recent URI -With a cough -COPD and his hypotension after procedure, will start Levaquin and monitor -Currently has no sign of infection on CT of his chest not complained of any dysuria. He is afebrile without a leukocytosis DVT: SCDs Code Visit Inpatient E&M: 29548 Subs Hosp L2
[2018-12-13 17:15] LABS: Bedside Glucose 102 mg/dL (70-110)
[2018-12-13 18:16] LABS: Bacteria 0 SEEN /hpf (None Seen); Mucous, Urine 0 SEEN /hpf (<or=2+); Red Blood Cells-Urine 0 SEEN /hpf (0-5); Squamous Epithelial Cells - UA 0 SEEN /hpf (0-5); White Blood Cells 0 SEEN /hpf (0-5)
[2018-12-13 18:18] LABS: Color, Urine Yellow (Yellow); Glucose, Dipstick Normal (Normal); Ketone-Dipstick Negative (Negative); Leukocyte Esterase-Dipstick Negative /ul (Negative); Nitrite-Dipstick Negative (Negative); Occult Blood-Urine Negative /ul (Negative); Protein-Dipstick 15 mg/dl (Negative); Specific Gravity, Urine 1.005 (1.002-1.030); Urine Bilirubin Dipstick Negative (Negative); Urine Clarity Sl. Cloudy (Clear); Urine Urobilinogen Normal (Normal); Urine pH 6.5 (5.0 - 8.0)
[2018-12-13] MEDS: Amitriptyline 25 MG Tablet PO (21:15)
[2018-12-13 21:26] LABS: Bedside Glucose 121 mg/dL (70-110)
[2018-12-14] VITALS (61 sets, daily range): BP systolic 44–145; BP diastolic 29–82; PULSE 64–103; RESP 12–17; TEMP 37–37.7; O2SAT 89–96
[2018-12-14] MEDS: DOPamine IV 800 MG/250 ML IV.SOLN. 21.5 MG CONT INF (01:39)
[2018-12-14] MEDS: 0.9% Saline Lock 10 ML Syringe IV ×5 (03:58→23:57)
[2018-12-14] MEDS: 0.9% Normal Saline 1,000 ML 100 ML IV (03:58)
[2018-12-14] MEDS: oxyCODONE 5 MG Tablet 10 MG PO ×2 (03:58→16:56)
[2018-12-14 04:13] LABS: Hematocrit 41.2 % (40-54); Hemoglobin 13.8 g/dL (13.0-16.5); Mean Corp Hgb Conc 33.5 g/dL (32-36); Mean Corpuscular Hgb 30.3 pg (27.0-32.0); Mean Corpuscular Volume 90.4 fL (80-94); Mean Platelet Vol. 10.1 fl (6.2-12.0); Platelet Count 185 K/mm3 (150-450); RBC Distribution Width CV 14.3 % (11.6-14.6); RBC Distribution Width SD 47.5 fl (35.1-43.9); Red Blood Count 4.56 M/mm3 (4.6-6.2); White Blood Count 9.7 K/mm3 (4.4-11.0)
[2018-12-14 04:30] LABS: ALB/GLOB Ratio 0.8 RATIO (0.9-2.4); AST(SGOT) 25 U/L (15-37); Alanine Aminotransfer ALT/SGPT 18 U/L (16-61); Alkaline Phosphatase 80 U/L (45-117); Anion Gap 7 (5-15); BUN 12 mg/dL (7-18); BUN/Creat Ratio 10.2 RATIO (10-20); Calcium,Total 8.3 mg/dL (8.5-10.1); Chloride 105 mmol/L (98-107); Creatinine, Serum 1.18 mg/dL (0.70-1.30); EST Glomerular Filtration Rate 68 mL/min (>60); Est Glom Filt Rate - Afr Amer 82 mL/min (>60); Estimated Creatinine Clearance 65.35 ml/min; Globulin 3.7 g/dL (2.2-4.2); Glucose 121 mg/dL (74-106); Protein, Total 6.7 g/dL (6.4-8.2); Sodium Level 139 mmol/L (136-145)
[2018-12-14 07:10] LABS: Bedside Glucose 116 mg/dL (70-110)
--- NOTE | 2018-12-14 08:24 | NURSING ---
Echo in progress
[2018-12-14] MEDS: Aspirin E.C. 81 MG Tablet PO (08:55)
[2018-12-14] MEDS: Gabapentin 600 MG Tablet PO ×2 (08:55→16:57)
[2018-12-14] MEDS: HYDROmorphone 1 MG/ML Syringe IV ×5 (08:55→23:57)
[2018-12-14] MEDS: Gabapentin 300 MG Capsule PO ×2 (08:55→16:56)
--- NOTE | 2018-12-14 09:57 | EKG12_ITS ---
Test Reason : AM EKG Blood Pressure : / mmHG Vent. Rate : 076 BPM Atrial Rate : 076 BPM P-R Int : 168 ms QRS Dur : 132 ms QT Int : 422 ms P-R-T Axes : 004 104 -50 degrees QTc Int : 474 ms Normal sinus rhythm Right bundle branch block Anteroseptal infarct , age undetermined T wave abnormality, consider inferolateral ischemia Abnormal ECG When compared with ECG of 13-DEC-2018 05:36, MANUAL COMPARISON REQUIRED, DATA IS UNCONFIRMED Confirmed by DAVEY SMART, BALA ([id number]), film editor SHERIN LANGSTON ([id number]) on 01/03/2019 1:33:24 PM Referred By: Shalini Marion Confirmed By:JUAN MARISCAL MD
--- NOTE | 2018-12-14 10:27 | CASEMGMT ---
Addendum entered by Karen Plaza 12/14/18 11:21: SW assisted pt in completing POA form, pt deferred to complete LW at this time. Pt put his significant other, Brit Thomson, as POA. SW gave pt original and copies, and placed a copy in the chart. SW also gave pt the information for LW with the number to the SW dept to call and make an appointment should he want come come in after discharge and complete the form. GUSTABO Sahu Original Note: Pt interested in completing LW/POA forms. However pt was about to get up w/nursing. SW returned and pt now sleeping soundly. SW will check in w/pt again later today or tomorrow to complete forms. GUSTABO Sahu
[2018-12-14] MEDS: levoFLOXacin IV 750 MG/150 ML BAG 100 MG IV (10:56)
[2018-12-14] MEDS: Clopidogrel Bisulfate 75 MG Tablet PO (11:09)
--- NOTE | 2018-12-14 14:17 | PCM.PN.HOSP ---
Patient Problems: Active and Suspected Problems (Last Reviewed 11/15/18 @ 13:51 by Dana Sanabria) Acute chest pain (Acute) Abnormal EKG (Acute) Left lower lobe pulmonary nodule (Acute) NSTEMI (non-ST elevated myocardial infarction) (Acute) Subjective: States his chest pain has resolved but he has continued leg pain which she has had for several months, as well as difficulty swallowing because of stenosis and strictures that he had dilated every year, though he is very much over a year out from his last one. Vitals/I&O's: Vital Signs Temp Pulse Resp BP Pulse Ox 99.1 F 89 17 119/45 L 91 12/14/18 11:06 12/14/18 11:14 12/14/18 11:06 12/14/18 12:30 12/14/18 11:06 Oxygen Flow Rate (L/min) 2 Oxygen Delivery Method Nasal Cannula Weight: 168 lb 0.017 oz Body Mass Index (BMI) 26.4 Intake and Output for Last 24 Hours 12/12/18 12/13/18 12/14/18 23:59 23:59 23:59 Intake Total 3294.87 / 3294.87 865.37 / 865.37 Output Total 2150 / 2150 900 / 900 Balance 1144.87 / 1144.87 -34.63 / -34.63 General: Alert, Oriented x3, Cooperative, No apparent distress HEENT: Atraumatic, PERRLA, EOMI, Normocephalic Oral: Moist Mucosa Neck: Supple, No JVD Lungs: Clear to auscultation, Normal air movement, No rhonchi, No wheeze, No rales, Diminished Cardiovascular: Regular rate, Regular Rhythm, Normal S1, Normal S2, No murmurs Abdomen: Soft, Non Tender, Non-Distended, No Hepato-splenomegaly Extremities: No edema, Capillary Refill Less than 3 Seconds, left upper extremity is red and a little bit swollen Skin: No rashes, No breakdown Neurological: Neuro grossly intact, Sensory exam intact to light touch and pain Psych/Mental Status: Normal Affect, Appropriate Microbiology Past 72 Hours 12/13/18 09:10 Blood Culture (Wb) - Femoral Artery Blood Culture - Preliminary Laboratory Results 12/13/18 17:05: POC Glucose 102 12/13/18 17:27: Urine Color Yellow, Urine Clarity Sl. Cloudy, Urine pH 6.5, Ur Specific [place] 1.005, Urine Protein 15 H, Urine Glucose (UA) Normal, Urine Ketones Negative, Urine Occult Blood Negative, Urine Nitrite Negative, Urine Bilirubin Negative, Urine Urobilinogen Normal, Ur Leukocyte Esterase Negative, Urine RBC 0 SEEN, Urine WBC 0 SEEN, Ur Squamous Epith Cells 0 SEEN, Urine Bacteria 0 SEEN, Urine Mucus 0 SEEN 12/13/18 21:22: POC Glucose 121 H 12/14/18 04:00: WBC 9.7, RBC 4.56 L, Hgb 13.8, Hct 41.2, MCV 90.4, MCH 30.3, MCHC 33.5, RDW Std Deviation 47.5 H, RDW Coeff of Jack 14.3, Plt Count 185, MPV 10.1 12/14/18 04:00: Sodium 139, Potassium 4.0, Chloride 105, Carbon Dioxide 27.0, Anion Gap 7, BUN 12, Creatinine 1.18, Estim Creat Clear Calc 65.35, Est GFR (MDRD) Af Amer 82, Est GFR (MDRD) Non-Af 68, BUN/Creatinine Ratio 10.2, Glucose 121 H, Calcium 8.3 L, Total Bilirubin 0.80, AST 25, ALT 18, Alkaline Phosphatase 80, Total Protein 6.7, Albumin 3.0 L, Globulin 3.7, Albumin/Globulin Ratio 0.8 L 12/14/18 07:04: POC Glucose 116 H 12/14/18 12:25: MRSA (PCR) Pending Current Medications Al Hydroxide/Mg Hydroxide (Mylanta Ii) 15 - 30 ml PO Q4H PRN PRN PRN Reason: INDIGESTION Albuterol Sulfate (Ventolin Aerosols) 2.5 mg INHALATION Q2H PRN PRN PRN Reason: dyspnea, wheezing Albuterol/Ipratropium (Duoneb) 3 ml INHALATION Q6HWA.RT [facility] Last Admin: 12/14/18 13:15 Dose: Not Given Documented by: Alendronate Sodium (Fosamax) 5 mg PO DAILY@0600 [facility] Last Admin: 12/14/18 05:37 Dose: 5 mg Documented by: Amitriptyline HCl (Elavil) 25 mg PO QHS [facility] Last Admin: 12/13/18 21:15 Dose: 25 mg Documented by: Aspirin (Ecotrin) 81 mg PO DAILY@0800 [facility] Last Admin: 12/14/18 08:55 Dose: 81 mg Documented by: Atorvastatin Calcium (Lipitor) 40 mg PO QHS [facility] Last Admin: 12/13/18 21:15 Dose: 40 mg Documented by: Atropine Sulfate () 0.5 mg IV UD PRN PRN Reason: HR <50 bpm Clopidogrel Bisulfate (Plavix) 75 mg PO DAILY [facility] Last Admin: 12/14/18 11:09 Dose: 75 mg Documented by: Dextrose (D50w Syringe) 0 gm IV X1 PRN; Protocol PRN Reason: Hypoglycemia Diazepam (Valium) 5 mg PO Q6H PRN PRN PRN Reason: BACK SPASMS/ANXIETY Furosemide (Lasix) 40 mg PO DAILY [facility] Last Admin: 12/14/18 11:14 Dose: Not Given Documented by: Gabapentin (Neurontin) 300 mg PO TIDCM [facility] Last Admin: 12/14/18 12:40 Dose: Not Given Documented by: Gabapentin (Neurontin) 600 mg PO TIDCM [facility] Last Admin: 12/14/18 12:40 Dose: Not Given Documented by: Glucagon () 1 mg IM .X1 PRN PRN Reason: Hypoglycemia Heparin Sodium (Beef Lung) (Heparin 500 Unit/5 Ml (100/Ml)) 500 unit IV UD PRN PRN Reason: HEPARIN FLUSH Hydralazine HCl (Apresoline Iv) 10 mg IV Q4H PRN PRN PRN Reason: SBP > 160 Hydromorphone HCl (Dilaudid Inj) 1 mg IV Q2H PRN PRN PRN Reason: Pain Score 6-10/10 Last Admin: 12/14/18 12:48 Dose: 1 mg Documented by: Sodium Chloride () 1,000 mls @ 75 mls/hr IV .[id number] [facility] Last Admin: 12/14/18 05:55 Dose: Not Given Documented by: Sodium Chloride () 1,000 mls @ 15 mls/hr IV .Q48H [facility] Last Admin: 12/13/18 10:10 Dose: Not Given Documented by: Levofloxacin (Levaquin Iv) 750 mg in 150 mls @ 100 mls/hr IV Q24 [facility] Last Admin: 12/14/18 10:56 Dose: 100 mls/hr Documented by: Vancomycin IV Pharmacy to Dose (1 ea/ Sodium Chloride) 500 mls @ 250 mls/hr IV X1 PRN; Protocol PRN Reason: Rx to Dose Vancomycin HCl 2,000 mg/ (Sodium Chloride) 540 mls @ 250 mls/hr IV X1 ONE Stop: 12/14/18 15:39 Dopamine HCl/Dextrose () 800 mg in 250 mls @ 7.144 mls/hr CONT INF .Q35H [facility]; Protocol Labetalol HCl (Trandate) 5 mg IV X1 PRN PRN Reason: SBP > 160 when pulling sheath Lisinopril (Zestril) 5 mg PO DAILY [facility] Last Admin: 12/14/18 10:57 Dose: Not Given Documented by: Magnesium Hydroxide (Milk Of Magnesia) 30 ml PO DAILY PRN PRN Reason: Constipation Metoprolol Succinate (Toprol Xl (Beta Shante)) 100 mg PO DAILY [facility] Last Admin: 12/14/18 10:57 Dose: Not Given Documented by: Nitroglycerin (Nitrostat) 0.4 mg SUBLINGUAL Q5M PRN PRN Reason: CARDIAC/CHEST PAIN Nutritional Formula (Lactose Free) (Ensure Enlive) 120 ml PO 4X/DAY [facility] Last Admin: 12/14/18 14:05 Dose: Not Given Documented by: Ondansetron HCl (Zofran) 4 mg IV Q8H PRN PRN PRN Reason: NAUSEA/VOMITING Last Admin: 12/13/18 10:09 Dose: 4 mg Documented by: Oxycodone HCl (Oxycontin) 10 mg PO BID [facility] Last Admin: 12/14/18 12:40 Dose: Not Given Documented by: Oxycodone HCl (Oxyir) 10 mg PO Q4H PRN PRN PRN Reason: Pain Score 6-10/10 Last Admin: 12/14/18 03:58 Dose: 10 mg Documented by: Pantoprazole Sodium (Protonix) 40 mg PO DAILY [facility] Last Admin: 12/14/18 11:14 Dose: Not Given Documented by: Potassium Chloride (K-Dur) 20 meq PO DAILY [facility] Last Admin: 12/14/18 11:14 Dose: Not Given Documented by: Sodium Chloride () 10 - 40 ml IV UD PRN PRN Reason: SALINE FLUSH Last Admin: 12/14/18 12:48 Dose: 10 ml Documented by: Sodium Chloride () 500 ml IV BOLUS PRN PRN Reason: VASO-VAGAL PROTOCOL Temazepam (Restoril) 15 mg PO QHS PRN PRN PRN Reason: INSOMNIA STROKE Vital Signs/Narrative: Vital Signs Temp Pulse Resp BP Pulse Ox 12/14/18 12:30 119/45 L 12/14/18 12:15 129/50 H 12/14/18 11:45 117/36 L 12/14/18 11:30 97/32 L 12/14/18 11:15 44/29 L 12/14/18 11:14 89 12/14/18 11:06 99.1 F 103 H 17 114/66 91 12/14/18 10:45 122/55 H 12/14/18 10:30 124/59 H Medical Necessity - Tobacco Use Smoking Status: Current every day smoker Tobacco Use: Cigarettes Assessment/Plan All Active Problems (Last Reviewed 11/15/18 @ 13:51 by Dana Sanabria) Acute chest pain (Acute) Abnormal EKG (Acute) Left lower lobe pulmonary nodule (Acute) NSTEMI (non-ST elevated myocardial infarction) (Acute) 1. Chest pain secondary to an acute NSTEMI/CAD status post stents and CABG x3/HTN/HLD -His troponin was elevated and therefore even though he had no EKG changes he was taken for cardiac cath today. It was found that he had in-stent restenosis and had to have 2 stents deployed. After the procedure he had some hypotension with an EF of 20% and he was transferred to the ICU. -Continue with aggressive IV fluid rehydration as well as dopamine to support his blood pressures, will hold Lasix he is receiving IV fluids -Continue with aspirin and Plavix -Appreciate cardiology assistance -Continue with statin, -Continue to hold his blood pressure medications seeing as we have difficulty maintaining his blood pressures while on a dopamine drip 2. GERD/chronic dysphagia -His chronic dysphagia is from postop complications from his previous CABG. That point a sternal wire had caused a large infection in his sternum which had to be removed. During the removal of his sternum he had an injury to his esophagus which has led to stricturing and an inability to relax his lower GE junction and he gets stretched intermittently -Continue with PPI -I discussed with him the possibility of being transferred to a tertiary care center where they have GI availability to potentially stretch his esophagus. He is been struggling with taking any pills today and my concern is that he will be able to take his Plavix regularly without having this stretched. 3. Chronic COPD/recent URI -With a cough -COPD and his hypotension after procedure, will continue with Levaquin and monitor -Currently has no sign of infection on CT of his chest not complained of any dysuria. He is afebrile without a leukocytosis 4. Gram-positive cocci in clusters me -Because of his dopamine needs for blood pressure support yesterday cardiology obtained a single blood culture it appears from the groin region which came back positive for gram-positive cocci in clusters -Will repeat blood cultures, and start on IV vancomycin after having a PICC line placed since he has tenuous IV access -We will obtain a MRSA PCR for a faster determination on whether or not this is a MRSA infection -He is afebrile without a leukocytosis 5. Left upper extremity edema with erythema -We will obtain an Doppler of his left upper extremity to check for DVT -There is no area of fluctuance or skin breakdown in the arm DVT: SCDs Code Visit Inpatient E&M: 84526 Subs Hosp L2
--- NOTE | 2018-12-14 14:23 | VDUE_ITS ---
Reason For Study: LUE red and swelling Right Proximal Left Proximal Right subclavian vein is spontaneous, widely Left jugular vein is spontaneous, widely patent, phasic, with no intraluminal patent, phasic, with no intraluminal echogenicity noted. echogenicity noted. Left subclavian vein is spontaneous, widely patent, phasic, with no intraluminal echogenicity noted. Left Arm Left axillary vein is spontaneous, patent, phasic, competent, compressible and demonstrates augmentation. Left brachial vein is compressible. Left cephalic vein is compressible. Left basilic vein is compressible. Left Lower Arm Left radial vein is compressible. Left ulnar vein is compressible. Interpretation Summary Deep veins of the left upper extremity are patent and compressible segmentally. There is no evidence of deep vein thrombosis. The superficial veins of the left upper extremity, the basilic and cephalic veins, are patent and compressible. There is no evidence of left upper extremity superficial thrombophlebitis involving the veins imaged. Ordering Physician: Cotlen Cleveland Referring Physician: Oral Manuel Performed By: Dana Mendez, YOANNA, RVT ?
[2018-12-14] MEDS: DOPamine IV 800 MG/250 ML IV.SOLN. 17.9 MG CONT INF (14:38)
--- NOTE | 2018-12-14 14:56 | PCM.RX.CS ---
Consult Pharmacy has been consulted to manage selected antiobiotic: Vancomycin Type of Consult: New start Suspected Infection: Other Labs: Sodium 139 mmol/L (136-145) 12/14/18 04:00 Potassium 4.0 mmol/L (3.5-5.1) 12/14/18 04:00 Chloride 105 mmol/L (98-107) 12/14/18 04:00 Carbon Dioxide 27.0 mmol/L (21.0-32.0) 12/14/18 04:00 Anion Gap 7 (5-15) 12/14/18 04:00 BUN 12 mg/dL (7-18) 12/14/18 04:00 Creatinine 1.18 mg/dL (0.70-1.30) 12/14/18 04:00 Est GFR (MDRD) Af Amer 82 mL/min (>60) 12/14/18 04:00 Est GFR (MDRD) Non-Af 68 mL/min (>60) 12/14/18 04:00 BUN/Creatinine Ratio 10.2 RATIO (10-20) 12/14/18 04:00 Glucose 121 mg/dL (74-106) H 12/14/18 04:00 Microbiology: Microbiology 12/13/18 09:10 Blood Culture (Wb) - Femoral Artery Blood Culture - Preliminary Weight used for dosin.2 kg Estimated Creatinine Clearance: 65ML/MIN Goal Trough: 15-20 mcg/mL Pharmacy Plan for Drug Dosing: Give initial loading dose (25mg/kg) of 2000mg IV x1, then continue with 1000mg IV q12h. Will obtain a trough level before the 4th total dose. Pharmacy Service will continue to monitor and adjust dosing as required. Follow-Up Labs: Trough Vancomycin Labs to be done on [date and time ordered]: 12/16/18 02:30
[2018-12-14 15:07] LABS: M R Staph aureus DNA By PCR Negative (Negative); Probe Check PASS; Specimen Processing Control PASS
[2018-12-14] MEDS: Ipratropium/Albuterol Sulfate 3 ML AMPUL.NEB INHALATION (19:00)
--- NOTE | 2018-12-14 20:58 | CPS ---
PT ASKED IF HE WORE BIPAP AT NIGHT,AT HOME.PT STATED NO.[employer] EXPLAINED TO PT WHAT BIPAP IS,AND WHAT IT DOES.PT HAS NO SOB RIGHT NOW.PT STATES HE DOESNT WANT TO WEAR BIPAP AND PROBABLY WOULDNT TOLERATE IT.BIPAP NOT STARTED.
[2018-12-14] MEDS: Atorvastatin Calcium 40 MG Tablet PO (21:10)
[2018-12-14] MEDS: Amitriptyline 25 MG Tablet PO (21:10)
--- NOTE | 2018-12-14 22:11 | NURSING ---
PM meds given crushed in applesauce and sips of water at 2109, patient tolerated fair, emesis at 0 with discomfort, declines zofran, will continue to monitor.
[2018-12-15] VITALS (52 sets, daily range): BP systolic 87–133; BP diastolic 31–73; PULSE 70–102; RESP 12–24; TEMP 37.1–37.9; O2SAT 89–97
[2018-12-15] MEDS: Vancomycin IV 1,000 MG/200 ML BAG 200 MG IV ×2 (03:29→15:02)
[2018-12-15] MEDS: 0.9% Saline Lock 10 ML Syringe IV ×4 (03:30→08:40)
[2018-12-15] MEDS: 0.9% Normal Saline 1,000 ML 75 ML IV ×2 (03:30→20:04)
[2018-12-15] MEDS: HYDROmorphone 1 MG/ML Syringe IV ×3 (03:30→08:30)
[2018-12-15] MEDS: Ondansetron 4 MG/2 ML Vial IV ×2 (03:43→17:30)
[2018-12-15 03:58] LABS: Absolute Neutrophil Count 6.2 X10^3/uL (2.0-7.7); Basophil# 0.06 X10^3/uL; Basophil% 0.7 % (0-1); Eosinophil# 0.32 X10^3/uL; Eosinophils% 3.8 % (0-5); Hematocrit 36.9 % (40-54); Hemoglobin 12.1 g/dL (13.0-16.5); Lymphocyte % 14.3 % (19-41); Mean Corp Hgb Conc 32.8 g/dL (32-36); Mean Corpuscular Volume 91.6 fL (80-94); Mean Platelet Vol. 9.7 fl (6.2-12.0); Monocyte# 0.52 X10^3/uL; Monocyte% 6.2 % (0-10); NRBC Flagged by Analyzer 0 % (0-5); Neutrophil # 6.24 X10^3/uL (2.7-7.7); Neutrophil % 74.5 % (47-70); Platelet Count 149 K/mm3 (150-450); RBC Distribution Width CV 14.5 % (11.6-14.6); Red Blood Count 4.03 M/mm3 (4.6-6.2); White Blood Count 8.4 K/mm3 (4.4-11.0)
[2018-12-15 04:04] LABS: Anion Gap 6 (5-15); BUN 10 mg/dL (7-18); BUN/Creat Ratio 11.4 RATIO (10-20); Calcium,Total 7.5 mg/dL (8.5-10.1); Chloride 108 mmol/L (98-107); Creatinine, Serum 0.88 mg/dL (0.70-1.30); EST Glomerular Filtration Rate 95 mL/min (>60); Est Glom Filt Rate - Afr Amer 115 mL/min (>60); Estimated Creatinine Clearance 87.63 ml/min; Glucose 144 mg/dL (74-106); Potassium 3.7 mmol/L (3.5-5.1); Sodium Level 139 mmol/L (136-145)
--- NOTE | 2018-12-15 07:58 | PN.CARD_ITS ---
Subjectve: Patient seen and evaluated Objective: Vital Signs Temp Pulse Resp BP Pulse Ox 99.4 F H 78 12 94/49 L 93 12/15/18 04:00 12/15/18 07:00 12/15/18 07:00 12/15/18 07:00 12/15/18 07:00 Oxygen Flow Rate (L/min) 2 Oxygen Delivery Method Nasal Cannula Weight: 168 lb 0.017 oz Body Mass Index (BMI) 26.4 Intake and Output for Last 24 Hours 12/13/18 12/14/18 12/15/18 23:59 23:59 23:59 Intake Total 3294.87 / 3294.87 1689.40 / 2084.40 1004.73 / 1004.73 Output Total 2150 / 2150 1875 / 2825 1600 / 1600 Balance 1144.87 / 1144.87 -185.60 / -740.60 -595.27 / -595.27 General: Awake, Alert, Oriented x 3 HEENT: PERRL, EOMI, Sclera Non Icteric Neck: Supple, Good ROM, No Lymph Node Enlargement Lungs: Clear to auscultation Cardiovascular: Regular Rhythm, Normal S1, Normal S2, No Murmurs, No Rubs, No Gallops Vascular: No Carotid Bruits, Normal Femoral Pulses, Normal Radial Pulses, Normal Dorsalis Pedal Pulse, Normal Posterior Tibial Pulses Abdomen: Bowel Sounds Present, Soft, Non Tender, No HSM, No Organomegaly Extremities: No Cyanosis, No Clubbing, No edema Musculoskeletal: No Erythema Skin: No Rashes Lymphatic: No Lymph Node Enlargement Neurological: No Focal Motor or Sensory Deficit Psych/Mental Status: Appropriate 12/15/18 03:40: WBC 8.4, RBC 4.03 L, Hgb 12.1 L, Hct 36.9 L, MCV 91.6, MCH 30.0, MCHC 32.8, Plt Count 149 L, MPV 9.7, Immature Gran % (Auto) 0.500, Neut % (Auto) 74.5 H, Lymph % (Auto) 14.3 L, Giles % (Auto) 6.2, Eos % (Auto) 3.8, Baso % (Auto) 0.7, Absolute Neuts (auto) 6.2, Nucleated RBC % 0 12/15/18 03:40: Sodium 139, Potassium 3.7, Chloride 108 H, Carbon Dioxide 25.0, Anion Gap 6, BUN 10, Creatinine 0.88, Est GFR (MDRD) Af Amer 115, Est GFR (MDRD) Non-Af 95, BUN/Creatinine Ratio 11.4, Glucose 144 H, Calcium 7.5 L Rhythm: EKG: ECHO: Stress Test: Cardiac Cath: PCI: CT Surgery: Holter monitor: EPS: PPM: CXR: Chest CT Scan: Medical Necessity - Tobacco Use Smoking Status: Current every day smoker Tobacco Use: Cigarettes Assessment/Plan 1. Non-ST elevation myocardial infarction * This is a patient with known coronary artery disease and presents with somewhat atypical chest discomfort and no EKG changes but had a troponin elevation. He has been compliant with his previous medications and he will continue on his aspirin and clopidogrel and statin. * Cardiac catheterization demonstrated the following * Totally occluded right coronary artery * Circumflex artery with previously placed stent with 95% in-stent stenosis * Left anterior descending artery with a vessel almost completely stented with 60% long in-stent stenosis and distal 90% stenosis with [id number] collaterals. * Saphenous vein graft to the right coronary artery which is totally occluded * Venous vein graft to circumflex artery which is totally occluded * Left internal mammary artery to the left anterior descending artery which is nonfunctional * Reduced left ventricular systolic function * Based on the above angiographic findings the patient underwent angioplasty and stenting of the left circumflex artery and also the left anterior descending artery 2. Ischemic cardiomyopathy * She is likely has a history of ischemic cardiomyopathy and this will be evaluated with an echocardiogram. * He does not have any obvious heart failure symptoms and his medications will be adjusted as appropriate. * His blood pressure has been low and he has been on dopamine we will attempt to titrate this down and maintain a systolic blood pressure of 90 mmHg on the mean arterial pressure of 55 to 60 mmHg 3. Status post ICD implantation * He has an ICD which would need to be interrogated and followed up through in the office. * We will continue with her current medications at this particular time. * 4. Peripheral vascular disease * He appears to have significant peripheral vascular disease with an abdominal aneurysm as well as distal peripheral disease. He tells me that he may be referred to a regular surgeon for treatment of the above. * * * He appears to have a source of infection which is being treated with IV antibiotics. This is being managed by the hospitalist. He does have other medical issues including inability to swallow and this is also been addressed by the hospitalist * Thank you for allowing me to participate in the care of your patient. Please don't hesitate to call if any issues arise
[2018-12-15] MEDS: Clopidogrel Bisulfate 75 MG Tablet PO (08:31)
[2018-12-15] MEDS: Aspirin E.C. 81 MG Tablet PO (08:36)
[2018-12-15] MEDS: levoFLOXacin IV 750 MG/150 ML BAG 100 MG IV (10:40)
[2018-12-15] MEDS: oxyCODONE HCl Cr 10 MG Tablet PO ×2 (10:41→21:39)
[2018-12-15] MEDS: Pantoprazole Sodium 40 MG Tablet PO (10:44)
[2018-12-15] MEDS: Gabapentin 600 MG Tablet PO ×3 (10:44→17:04)
[2018-12-15] MEDS: Gabapentin 300 MG Capsule PO ×3 (10:44→17:04)
--- NOTE | 2018-12-15 11:17 | NURSING ---
Pt given PO ASA and plavix whole with liquids. Discussed with Dr. Albert. Pt assessed approx 1030 after pt had been given breakfast. Pt states he had an episode of emesis. Amount of emesis noted in bag was approx 20 mls worth of liquid. Per NURSING EDUCATOR, no other emesis containers had been emptied from patient room and patient had eaten approx 100% of meal tray provided for breakfast. Pt also continues to drink coca cola and ice water at bedside without reported discomfort.
[2018-12-15] MEDS: oxyCODONE 5 MG Tablet 10 MG PO ×2 (12:58→17:03)
--- NOTE | 2018-12-15 13:48 | PCM.PN.HOSP ---
Patient Problems: Active and Suspected Problems (Last Reviewed 11/15/18 @ 13:51 by Dana Sanabria) Acute chest pain (Acute) Abnormal EKG (Acute) Left lower lobe pulmonary nodule (Acute) NSTEMI (non-ST elevated myocardial infarction) (Acute) Subjective: Continues to say that he has large volumes of emesis however examined there is just a few cc of spit. We will continue to encourage sips of p.o. and to slow down on his full meals. Still has some leg pain as well as abdominal pain which is chronic for him Vitals/I&O's: Vital Signs Temp Pulse Resp BP Pulse Ox 98.8 F 92 21 H 99/67 97 12/15/18 12:00 12/15/18 13:00 12/15/18 13:00 12/15/18 13:30 12/15/18 13:00 Oxygen Flow Rate (L/min) 2 Oxygen Delivery Method Room Air Weight: 168 lb 0.017 oz Body Mass Index (BMI) 26.4 Intake and Output for Last 24 Hours 12/13/18 12/14/18 12/15/18 23:59 23:59 23:59 Intake Total 3294.87 / 3294.87 1689.40 / 2084.40 1597.36 / 1597.36 Output Total 2150 / 2150 1875 / 2825 2100 / 2100 Balance 1144.87 / 1144.87 -185.60 / -740.60 -502.64 / -502.64 General: Alert, Oriented x3, Cooperative, No apparent distress HEENT: Atraumatic, PERRLA, EOMI, Normocephalic Oral: Moist Mucosa Neck: Supple, No JVD Lungs: Clear to auscultation, Normal air movement, No rhonchi, No wheeze, No rales, Diminished Cardiovascular: Regular rate, Regular Rhythm, Normal S1, Normal S2, No murmurs Abdomen: Soft, Non Tender, Non-Distended, No Hepato-splenomegaly Extremities: No edema, Capillary Refill Less than 3 Seconds, left upper extremity is swollen but is no longer red Skin: No rashes, No breakdown Neurological: Neuro grossly intact, Sensory exam intact to light touch and pain Psych/Mental Status: Normal Affect, Appropriate Microbiology Past 72 Hours 12/13/18 17:27 Urine, Catheterized Urine Culture - Preliminary Culture exhibits no growth. 10/29/19 09:10 Blood Culture (Wb) - Femoral Artery Bacteria Detection (PCR) - Final Staphylococcus lugdunensis Staphylococcus epidermidis 12/13/18 09:10 Blood Culture (Wb) - Femoral Artery Blood Culture - Preliminary Staphylococcus epidermidis Staphylococcus lugdunensis Laboratory Results 12/14/18 12:25: MRSA (PCR) Negative 12/15/18 03:40: WBC 8.4, RBC 4.03 L, Hgb 12.1 L, Hct 36.9 L, MCV 91.6, MCH 30.0, MCHC 32.8, RDW Std Deviation 49.0 H, RDW Coeff of Jack 14.5, Plt Count 149 L, MPV 9.7, Immature Gran % (Auto) 0.500, Neut % (Auto) 74.5 H, Lymph % (Auto) 14.3 L, [place] % (Auto) 6.2, Eos % (Auto) 3.8, Baso % (Auto) 0.7, Absolute Neuts (auto) 6.2, Absolute Lymphs (auto) 1.20, Nucleated RBC % 0 12/15/18 03:40: Sodium 139, Potassium 3.7, Chloride 108 H, Carbon Dioxide 25.0, Anion Gap 6, BUN 10, Creatinine 0.88, Estim Creat Clear Calc 87.63, Est GFR (MDRD) Af Amer 115, Est GFR (MDRD) Non-Af 95, BUN/Creatinine Ratio 11.4, Glucose 144 H, Calcium 7.5 L Current Medications Al Hydroxide/Mg Hydroxide (Mylanta Ii) 15 - 30 ml PO Q4H PRN PRN PRN Reason: INDIGESTION Albuterol Sulfate (Ventolin Aerosols) 2.5 mg INHALATION Q2H PRN PRN PRN Reason: dyspnea, wheezing Albuterol/Ipratropium (Duoneb) 3 ml INHALATION Q6HWA.RT [facility] Last Admin: 12/15/18 13:03 Dose: Not Given Documented by: Alendronate Sodium (Fosamax) 5 mg PO DAILY@0600 [facility] Last Admin: 12/15/18 05:29 Dose: Not Given Documented by: Amitriptyline HCl (Elavil) 25 mg PO QHS [facility] Last Admin: 12/14/18 21:10 Dose: 25 mg Documented by: Aspirin (Ecotrin) 81 mg PO DAILY@0800 [facility] Last Admin: 12/15/18 08:36 Dose: 81 mg Documented by: Atorvastatin Calcium (Lipitor) 40 mg PO QHS [facility] Last Admin: 12/14/18 21:10 Dose: 40 mg Documented by: Atropine Sulfate () 0.5 mg IV UD PRN PRN Reason: HR <50 bpm Clopidogrel Bisulfate (Plavix) 75 mg PO DAILY [facility] Last Admin: 12/15/18 08:31 Dose: 75 mg Documented by: Dextrose (D50w Syringe) 0 gm IV X1 PRN; Protocol PRN Reason: Hypoglycemia Diazepam (Valium) 5 mg PO Q6H PRN PRN PRN Reason: BACK SPASMS/ANXIETY Gabapentin (Neurontin) 300 mg PO TIDCM [facility] Last Admin: 12/15/18 10:44 Dose: 300 mg Documented by: Gabapentin (Neurontin) 600 mg PO TIDCM [facility] Last Admin: 12/15/18 10:44 Dose: 600 mg Documented by: Glucagon () 1 mg IM .X1 PRN PRN Reason: Hypoglycemia Heparin Sodium (Beef Lung) (Heparin 500 Unit/5 Ml (100/Ml)) 500 unit IV UD PRN PRN Reason: HEPARIN FLUSH Hydralazine HCl (Apresoline Iv) 10 mg IV Q4H PRN PRN PRN Reason: SBP > 160 Hydromorphone HCl (Dilaudid Inj) 1 mg IV Q2H PRN PRN PRN Reason: Pain Score 6-10/10 Last Admin: 12/15/18 08:30 Dose: 1 mg Documented by: Sodium Chloride () 1,000 mls @ 75 mls/hr IV .[id number] [facility] Last Infusion: 12/15/18 12:05 Dose: 75 mls/hr Documented by: Sodium Chloride () 1,000 mls @ 15 mls/hr IV .Q48H [facility] Last Admin: 12/15/18 08:38 Dose: Not Given Documented by: Levofloxacin (Levaquin Iv) 750 mg in 150 mls @ 100 mls/hr IV Q24 [facility] Last Infusion: 12/15/18 12:22 Dose: Infused Documented by: Vancomycin IV Pharmacy to Dose (1 ea/ Sodium Chloride) 500 mls @ 250 mls/hr IV X1 PRN; Protocol PRN Reason: Rx to Dose Vancomycin HCl (Vancomycin) 1,000 mg in 200 mls @ 200 mls/hr IV Q12H [facility] Last Infusion: 12/15/18 04:29 Dose: Infused Documented by: Dopamine HCl/Dextrose () 800 mg in 250 mls @ 7.144 mls/hr CONT INF .Q35H [facility]; Protocol Last Admin: 12/15/18 12:21 Dose: Not Given Documented by: Labetalol HCl (Trandate) 5 mg IV X1 PRN PRN Reason: SBP > 160 when pulling sheath Lisinopril (Zestril) 5 mg PO DAILY [facility] Last Admin: 12/15/18 10:32 Dose: Not Given Documented by: Magnesium Hydroxide (Milk Of Magnesia) 30 ml PO DAILY PRN PRN Reason: Constipation Metoprolol Succinate (Toprol Xl (Beta Shante)) 100 mg PO DAILY [facility] Last Admin: 12/15/18 10:32 Dose: Not Given Documented by: Nitroglycerin (Nitrostat) 0.4 mg SUBLINGUAL Q5M PRN PRN Reason: CARDIAC/CHEST PAIN Nutritional Formula (Lactose Free) (Ensure Enlive) 120 ml PO 4X/DAY [facility] Last Admin: 12/15/18 10:33 Dose: Not Given Documented by: Ondansetron HCl (Zofran) 4 mg IV Q8H PRN PRN PRN Reason: NAUSEA/VOMITING Last Admin: 12/15/18 03:43 Dose: 4 mg Documented by: Oxycodone HCl (Oxycontin) 10 mg PO BID [facility] Last Admin: 12/15/18 10:41 Dose: 10 mg Documented by: Oxycodone HCl (Oxyir) 10 mg PO Q4H PRN PRN PRN Reason: Pain Score 6-10/10 Last Admin: 12/15/18 12:58 Dose: 10 mg Documented by: Pantoprazole Sodium (Protonix) 40 mg PO DAILY [facility] Last Admin: 12/15/18 10:44 Dose: 40 mg Documented by: Potassium Chloride (K-Dur) 20 meq PO DAILY [facility] Last Admin: 12/15/18 10:33 Dose: Not Given Documented by: Sodium Chloride () 10 - 40 ml IV UD PRN PRN Reason: SALINE FLUSH Last Admin: 12/15/18 08:40 Dose: 10 ml Documented by: Sodium Chloride () 500 ml IV BOLUS PRN PRN Reason: VASO-VAGAL PROTOCOL Temazepam (Restoril) 15 mg PO QHS PRN PRN PRN Reason: INSOMNIA STROKE Vital Signs/Narrative: Vital Signs Temp Pulse Resp BP Pulse Ox 12/15/18 13:30 99/67 12/15/18 13:15 103/57 L 12/15/18 13:00 92 21 H 99/56 L 97 12/15/18 12:45 94/58 L 12/15/18 12:30 100/63 12/15/18 12:15 87/48 L 12/15/18 12:10 83 12/15/18 12:00 98.8 F 73 15 100/55 L 93 12/15/18 11:45 99/64 12/15/18 11:30 89/52 L 12/15/18 11:15 100/51 L 12/15/18 11:00 82 16 133/31 H 95 12/15/18 10:45 88/57 L 12/15/18 10:30 101/55 L 12/15/18 10:00 70 12 90/48 L 94 Medical Necessity - Tobacco Use Smoking Status: Current every day smoker Tobacco Use: Cigarettes Assessment/Plan All Active Problems (Last Reviewed 11/15/18 @ 13:51 by Dana Sanabria) Acute chest pain (Acute) Abnormal EKG (Acute) Left lower lobe pulmonary nodule (Acute) NSTEMI (non-ST elevated myocardial infarction) (Acute) 1. Chest pain secondary to an acute NSTEMI/CAD status post stents and CABG x3/HTN/HLD/PAD -His troponin was elevated and therefore even though he had no EKG changes he was taken for cardiac cath today. It was found that he had in-stent restenosis and had to have 2 stents deployed. After the procedure he had some hypotension with an EF of 20% and he was transferred to the ICU. -Continue with aggressive IV fluid rehydration as well as dopamine to support his blood pressures, will hold Lasix he is receiving IV fluids -Continue with aspirin and Plavix -Appreciate cardiology assistance -Continue with statin, -The likely large contributor to the fact that dopamine is been difficult to wean off, has been his large requirements for Dilaudid for his chronic pain him if we are able to ultimately wean him off dopamine then he can be discharged with follow-up with his PCP for referral to a instant potato processing supervisor for his chronic dysphagia and a vascular surgeon for his peripheral artery disease 2. GERD/chronic dysphagia -His chronic dysphagia is from postop complications from his previous CABG. That point a sternal wire had caused a large infection in his sternum which had to be removed. 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 Chronic COPD/recent URI -With a cough -COPD and his hypotension after procedure, will continue with Levaquin and monitor -Currently has no sign of infection on CT of his chest not complained of any dysuria. He is afebrile without a leukocytosis 4. Gram-positive cocci in clusters me -Because of his dopamine needs for blood pressure support yesterday cardiology obtained a single blood culture it appears from the groin region which came back positive for gram-positive cocci in clusters -Will repeat blood cultures, and start on IV vancomycin after having a PICC line placed since he has tenuous IV access -We will obtain a MRSA PCR for a faster determination on whether or not this is a MRSA infection -He is afebrile without a leukocytosis, initial cultures are showing contaminants with staph epidermidis and lugdunensis. We will continue with the vancomycin for now pending results of his previous blood cultures obtained yesterday afternoon 5. Left upper extremity edema with erythema -His left upper extremity is no longer red, and the Doppler of his left upper extremity was negative for DVT -There is no area of fluctuance or skin breakdown in the arm DVT: SCDs Code Visit Inpatient E&M: 28809 Subs Hosp L2
[2018-12-15] MEDS: BENZOCAINE/MENTHOL 1 LOZENGE MUCOUS MEM (17:30)
[2018-12-15] MEDS: Atorvastatin Calcium 40 MG Tablet PO (21:39)
[2018-12-15] MEDS: Amitriptyline 25 MG Tablet PO (21:39)
[2018-12-15] MEDS: diazePAM 5 MG Tablet PO (22:57)
[2018-12-16] VITALS (16 sets, daily range): BP systolic 92–112; BP diastolic 47–59; PULSE 75–105; RESP 12–20; TEMP 37.1–37.6; O2SAT 90–95
[2018-12-16 03:14] LABS: Vancomycin, Trough Level 10.5 ug/mL (5.0-15.0)
--- NOTE | 2018-12-16 03:41 | PHA.PHARE_ITS ---
Consult Pharmacy has been consulted to manage selected antiobiotic: Vancomycin Type of Consult: Follow-up Suspected Infection: Other Prior Doses of Antibiotics Received/Current Regimen: Medications Vancomycin HCl 1,500 mg/ (Sodium Chloride) 530 mls @ 250 mls/hr IV Q12H [facility] Discontinued Medications Vancomycin HCl (Vancomycin) 1,000 mg in 200 mls @ 200 mls/hr IV Q12H [facility] Last Admin: 12/15/18 16:02 Dose: Infused Labs: Sodium 139 mmol/L (136-145) 12/15/18 03:40 Potassium 3.7 mmol/L (3.5-5.1) 12/15/18 03:40 Chloride 108 mmol/L (98-107) H 12/15/18 03:40 Carbon Dioxide 25.0 mmol/L (21.0-32.0) 12/15/18 03:40 Anion Gap 6 (5-15) 12/15/18 03:40 BUN 10 mg/dL (7-18) 12/15/18 03:40 Creatinine 0.88 mg/dL (0.70-1.30) 12/15/18 03:40 Est GFR (MDRD) Af Amer 115 mL/min (>60) 12/15/18 03:40 Est GFR (MDRD) Non-Af 95 mL/min (>60) 12/15/18 03:40 BUN/Creatinine Ratio 11.4 RATIO (10-20) 12/15/18 03:40 Glucose 144 mg/dL (74-106) H 12/15/18 03:40 Vancomycin Trough 10.5 ug/mL (5.0-15.0) 12/16/18 02:02 Microbiology: Microbiology 12/13/18 17:27 Urine, Catheterized Urine Culture - Preliminary Culture exhibits no growth. 12/13/18 09:10 Blood Culture (Wb) - Femoral Artery Bacteria Detection (PCR) - Final Staphylococcus lugdunensis Staphylococcus epidermidis 12/13/18 09:10 Blood Culture (Wb) - Femoral Artery Blood Culture - Preliminary Staphylococcus epidermidis Staphylococcus lugdunensis Weight used for dosin.2 kg Estimated Creatinine Clearance: 87.6 Goal Trough: 15-20 mcg/mL Pharmacy Plan for Drug Dosing: Trough level received of 10.5 was below the target range of 15-20. Dose was inc reased to 1500mg q12h. Will re-draw trough level before 4th dose of new regiman. Pharmacy Service will continue to monitor and adjust dosing as required. Follow-Up Labs: Trough Vancomycin Labs to be done on [date and time ordered]: 12/17/18 @1500
[2018-12-16] MEDS: oxyCODONE 5 MG Tablet 10 MG PO ×2 (04:32→11:03)
[2018-12-16] MEDS: diazePAM 5 MG Tablet PO (08:29)
[2018-12-16] MEDS: Gabapentin 300 MG Capsule PO ×2 (08:30→11:04)
[2018-12-16] MEDS: Gabapentin 600 MG Tablet PO ×2 (08:30→11:04)
[2018-12-16] MEDS: Clopidogrel Bisulfate 75 MG Tablet PO (08:30)
[2018-12-16] MEDS: Aspirin E.C. 81 MG Tablet PO (08:31)
[2018-12-16] MEDS: Pantoprazole Sodium 40 MG Tablet PO (08:48)
[2018-12-16] MEDS: oxyCODONE HCl Cr 10 MG Tablet PO (08:49)
[2018-12-16] MEDS: levoFLOXacin IV 750 MG/150 ML BAG 100 MG IV (08:56)
[2018-12-16] MEDS: Benzonatate 100 MG Capsule PO (10:15)
--- NOTE | 2018-12-16 11:20 | CASEMGMT ---
Addendum entered by Mike Anthony 12/16/18 11:34: Pt did not qualify for home oxygen. No further dc needs identified. FAVIOLA Otto CM updated as pt will be transferring to PCU until dc. Qing LLAMAS Original Note: FAVIOLA ALCOCER Note: Discussed dc plans to home with pt. Pt may need home oxygen. Home oxygen testing placed in worklist for nursing to complete. Reviewed list with pt. [facility] are [employer] and [facility]. Pt prefers [facility] if oxygen is needed.. Qing LLAMAS
--- NOTE | 2018-12-16 11:54 | DCINST_ITS ---
- Discharge Diagnoses Current Active Problems: Current Active and Chronic Problems (Last Reviewed 11/15/18 @ 13:51 by Dana Sanabria) Acute chest pain (Acute) Abnormal EKG (Acute) Left lower lobe pulmonary nodule (Acute) NSTEMI (non-ST elevated myocardial infarction) (Acute) CAD (coronary artery disease) (Chronic) HTN (hypertension) (Chronic) HLD (hyperlipidemia) (Chronic) Tobacco use (Chronic) COPD (chronic obstructive pulmonary disease) (Chronic) LETTY (obstructive sleep apnea) (Chronic) You will use the following diet at home:: Cardiac Your food should be the consistency of: Mechanical soft (ground), Puree Your liquids should be the consistency of: Regular/Thin Discharge Activity: Return to Normal Activity Call your doctor if you observe: Fever of 101 or Higher, Shortness of breath, Dizziness, Fainting spells, Swelling in the ankles, Chest pain, Increased palpitations (irregular heartbeat) Allergies/Adverse Reactions: Allergies latex Allergy (Unknown, Verified 11/15/18 13:55) unknown acetaminophen [From Darvocet-N] Allergy (Verified 11/07/18 15:41) Anaphylaxis diphenhydramine [From Benadryl] Allergy (Verified 11/07/18 15:41) Rash hydrocodone [From Vicodin] Allergy (Verified 11/07/18 15:41) Anaphylaxis NSAIDS (Non-Steroidal Anti-Inflamma Allergy (Verified 11/07/18 15:41) Anaphylaxis oxycodone [From Percocet] Allergy (Verified 11/07/18 20:21) Anaphylaxis Penicillins Allergy (Verified 11/07/18 15:41) Anaphylaxis propoxyphene [From Darvocet-N] Allergy (Verified 11/07/18 15:41) Anaphylaxis Medications to take at Discharge Alendronate Sodium 5 mg PO DAILY 11/07/18 Amitriptyline HCl [Elavil] 25 mg PO QHS 11/07/18 Aspirin E.C. [Ecotrin] 81 mg PO DAILY@0800 11/07/18 Atorvastatin Calcium 40 mg PO DAILY 11/07/18 Clopidogrel Bisulfate [Plavix] 75 mg PO DAILY 11/07/18 Furosemide [Lasix] 40 mg PO DAILY 11/07/18 Gabapentin [Neurontin] 300 mg PO TIDCM 11/07/18 Lisinopril 5 mg PO DAILY 11/07/18 Magnesium Oxide [Magnesium] 400 mg PO DAILY 11/07/18 Potassium 20 meq PO DAILY 11/07/18 gabapentin 600 mg tablet 600 mg PO TID 11/15/18 metoprolol succinate ER 100 mg tablet,extended release 24 hr 100 mg PO DAILY 11/15/18 nitroglycerin 0.4 mg sublingual tablet 0.4 mg SUBLINGUAL Q5-15M 11/15/18 pantoprazole 40 mg tablet,delayed release 40 mg PO DAILY 11/15/18 Oxycodone Myristate [Xtampza ER] 9 mg PO BID 12/12/18 levoFLOXacin tablet [Levaquin tablet] 750 mg PO DAILY #2 tab 12/16/18 The following prescriptions were given: levoFLOXacin tablet [Levaquin tablet] 750 mg PO DAILY #2 tab Transmission Status: Pending to [facility] Primary Care Physician: Oral Manuel MD [Primary Care Provider] - Please follow up with your Primary Care Physician in: Tuesday 12/19 Test Results: Test results from this visit will be discussed in further detail at your follow- up appointment, if applicable. Please Follow Up With: Kevin Albert MD When: 1 week
--- NOTE | 2018-12-16 20:19 | PCM.DC.SUM ---
Discharge Date and Diagnosis Date of Admission: 12/12/18 Date of Discharge: 12/16/18 - Secondary Discharge Diagnosis Chronic Problems (Last Reviewed 11/15/18 @ 13:51 by Dana Sanabria) CAD (coronary artery disease) (Chronic) HTN (hypertension) (Chronic) HLD (hyperlipidemia) (Chronic) Tobacco use (Chronic) COPD (chronic obstructive pulmonary disease) (Chronic) LETTY (obstructive sleep apnea) (Chronic) Hospital Course and Treatment Imaging Results: CXR: IMPRESSION: Mild pulmonary vascular prominence. No consolidation. CTA Chest: IMPRESSION: No pulmonary embolus detected. Left lower lobe 5 mm nodule. Consider follow-up in 12 months of the patient is considered to be high risk for lung cancer. Individualized dose optimization techniques were used for this CT. Echo: Interpretation Summary Normal LV size. Moderately severe segmental systolic dysfunction (see wall motion). The estimated ejection fraction is 35 %. The rest of the wall segments are normal. Mild (1+) eccentric mitral valve insufficiency. Mild (1+) tricuspid valve insufficiency. Cardiac Cath:CLINICAL PROFILE AND CO-MORBIDITIES Indications: ACS <= 24 hrs, ACS <= 24 hrs, New Onset Angina <= 2 months, Stable Known CAD Heart Failure: NYHA Class: 3, Newly Diagnosed: No, Heart Failure Type: Systolic, NYHA Class: 1, Newly Diagnosed: No, Heart Failure Type: Systolic Stress/Imaging Stress/Image Study Performed: No Stress/Image Study Performed: No Angina Classification Anginal Classification w/in 2 Weeks: CCS III CAD Presentations: Non-STEMI. Symptom onset Date/Time: 12/12/2018 Time Not Available Comorbidities/Risk Factors: Current/Recent Smoker (< 1year) Hypertension Dyslipidemia Prior CHF Prior PCI Prior PCI CONCLUSIONS Successful PTCA/ROYCE mid LCX with a 2.5 x 10 Angiosculpt, followed by a 2.5 x 38 Promus Synergy, post dilated with a 3.0 x 12 NC Balloon; 85%-->0%, no dissection. Pt had identical CP during deployment. Successful PTCA/ROYCE distal LAD with a 2.25 x 20 Promus Synergy, post dilated with a 2.25 x 12 and 2.5 x 12 NC Balloon; 85%-->0%, no dissection. RECOMMENDATIONS Highly recommend quitting all tobacco products Follow up with primary child and family services specialist Risk factor modification ASA Indefinitley Plavix for at least 12 months Routine post interventional care Refer for Outpatient Cardiac Rehab Manual sheath removal per protocol Follow up with Dr. Albert Manual sheath removal out of concern for infection. D/w Dr Cleveland. Left UE Venous Doppler: Interpretation Summary Deep veins of the left upper extremity are patent and compressible segmentally. There is no evidence of deep vein thrombosis. The superficial veins of the left upper extremity, the basilic and cephalic veins, are patent and compressible. There is no evidence of left upper extremity superficial thrombophlebitis involving the veins imaged. Consults: Cardiology Operations: None Procedures: 2-D Echocardiogram, Cardiac catheterization Summary of Care Provided: Per HPI: The patient is a 58 y/o M w/ PMHx: Chronic COPD/Asthma, HTN, HLD, Hx VTE, Rheumatoid Arthritis, LETTY, PVD, GERD, CAD s/p CABG x 3 who presents to the [facility] ED on 12/12/18 with history of onset of chest discomfort, midsternal region with radiation to the left upper extremity starting approximately 1 hour prior to ED arrival, described as sharp and stabbing in nature which he notes is similar to his prior presentations and MIs with associated dyspnea, diaphoresis as well as nausea without emesis, occurring at rest while he was seated in his chair playing games on his phone. Patient notes that his chest discomfort upon initial onset was rated 10 out of 10. Upon evaluation patient noted stabbing chest discomfort had resolved with ongoing chronic anterior chest wall discomfort, 5 out of 10 which is patient baseline. Work-up in the ED included T 90.1, heart rate 99, BP 122/83, respiratory rate 23, 95% on room air, CBC with WBC 10.2, hemoglobin 16.6, platelet 244 without evidence of left shift, coags unremarkable, BMP unremarkable aside BUN/creatinine 20/1.08, glucose 112, troponin 0.036, chest x-ray with mild pulmonary vascular prominence with no consolidation, CTPA with no evidence of pulmonary embolus, left lower lobe 5 mm nodule with recommended 12-month follow-up with mildly enlarged heart with evidence of stenting and CABG changes with no consolidation or mass with dependent atelectasis, EKG without comparison with RBBB with T wave inversions V1, V3. In the ED patient ministered normal saline, morphine several rounds, nitroglycerin. Upon ED presentation ED physician did discuss case with child and family services specialist, Dr. Albert. Hospital Course: 1. Chest pain secondary to an acute NSTEMI/CAD status post stents and CABG x3/HTN/HLD/WHH-36-qzvd-old male who recently moved to the area with a history of cardiac disease and stroke presents with chest pain. He did have an elevation in his troponin which peaked at 5.2, without any changes in his EKG. He was taken for cardiac cath and had 2 stents placed in the left circumflex as well as the LAD. His chest pain did improve with a stent however he developed hypotension after the procedure and was placed on a dopamine drip he was ultimately successfully weaned after his IV pain medications were discontinued as this appeared to be what was causing the difficulty. Also of note there is some concern that he could have been septic after the procedure because of his history of a cough and his hypertension, however he had no white count or fever on admission or immediately prior to the cath. Given because of his history of COPD and his cough he was empirically started on Levaquin and he had a blood culture that was obtained done in the [facility] from the groin site which ended up growing staph epidermidis and staph lugdunensis, therefore 2 more peripheral blood cultures were obtained and vancomycin was started. However those cultures ultimately came back negative and he received 5 doses of Levaquin therefore he was discharged on 2 more doses of Levaquin and will follow up with his primary care doctor on Wednesday. He is to continue all of his home medications which included aspirin, Plavix, Lipitor, Lasix, lisinopril, metoprolol. He will also have follow-up with his child and family services specialist next week as well to [place] as an outpatient. He is also more than welcome to follow-up with Dr. Albert in 1 to 2 weeks as an outpatient if he would prefer. Also he does have a history of peripheral artery disease with significantly decreased blood flow to his right lower extremity, he is already set up to see a vascular surgeon as an outpatient by his PCP. 2. GERD/chronic dysphagia-his history of dysphagia is complicated, with his previous CABG surgery 1 of the sternal wires called a significant sternum infection and therefore his sternum has been completely removed. However during that procedure there was an injury to his esophagus which led to nerve damage and inability to completely relax his lower esophageal junction as well as the possibility of forming strictures. He says that he normally has esophageal dilatation done yearly however it is been much more than a year since last time he has done this. I did discuss the case with his PCP who will go about arranging follow-up with a tube sizer and cutter operator as an outpatient. Of note prior to discharge he was able to take all of his pills and take down liquids and small bites of food. 3. Left upper extremity edema with erythema-during his hospitalization there is also some concern of redness in his left upper extremity as well as significance swelling. Left upper extremity Doppler was obtained to evaluate for DVT, which was negative, and his edema continued to improve and his redness completely resolved. 4. His other medical diagnoses were evaluated and his home medications were continued where appropriate. Also of significance, is that during his initial work-up in the ER he had a CTA of his chest which demonstrated left lower lobe 5 mm nodule and given the fact that he has a history of smoking, he should have a follow-up CT scan as an outpatient within the next 12 months. - Physical Exam Vitals/I&O's: Vital Signs Temp Pulse Resp BP Pulse Ox 98.8 F 105 H 20 H 96/56 L 95 12/16/18 08:00 12/16/18 11:37 12/16/18 10:00 12/16/18 10:00 12/16/18 11:34 Oxygen Flow Rate (L/min) 2 Oxygen Delivery Method Nasal Cannula Weight: 168 lb 0.017 oz Body Mass Index (BMI) 26.4 Intake and Output for Last 24 Hours 12/14/18 12/15/18 12/16/18 23:59 23:59 23:59 Intake Total 1689.40 / 2084.40 4039.86 / 4039.86 1481.25 / 1481.25 Output Total 1875 / 2825 3420 / 3420 925 / 925 Balance -185.60 / -740.60 619.86 / 619.86 556.25 / 556.25 General: Alert, Oriented x3, Cooperative, No apparent distress HEENT: Atraumatic, PERRLA, EOMI, Normocephalic Oral: Moist Mucosa Neck: Supple, No JVD Lungs: Clear to auscultation, Normal air movement, No rhonchi, No wheeze, No rales, Diminished Cardiovascular: Regular rate, Regular Rhythm, Normal S1, Normal S2, No murmurs Abdomen: Soft, Non Tender, Non-Distended, No Hepato-splenomegaly Extremities: No edema, Capillary Refill Less than 3 Seconds, left upper extremity is swollen but improves and is no longer red Skin: No rashes, No breakdown Neurological: Neuro grossly intact, Sensory exam intact to light touch and pain Psych/Mental Status: Normal Affect, Appropriate Microbiology Past 72 Hours 12/13/18 09:10 Blood Culture (Wb) - Femoral Artery Bacteria Detection (PCR) - Final Staphylococcus lugdunensis Staphylococcus epidermidis 12/13/18 09:10 Blood Culture (Wb) - Femoral Artery Blood Culture - Preliminary Coag Negative Staph Coag Negative Staph#2 12/14/18 13:05 Blood Culture (Wb) - Right Hand Blood Culture - Preliminary No growth in 48 hours. 12/14/18 13:16 Blood Culture (Wb) - Anticubital Left Blood Culture - Preliminary No growth in 48 hours. 12/13/18 17:27 Urine, Catheterized Urine Culture - Final Culture exhibits no growth. Laboratory Results 12/16/18 02:02: Vancomycin Trough 10.5 Discharge Activity: Return to Normal Activity Call your doctor if you observe: Fever of 101 or Higher, Shortness of breath, Dizziness, Fainting spells, Swelling in the ankles, Chest pain, Increased palpitations (irregular heartbeat) Home Medications: Medications to take at Discharge Alendronate Sodium 5 mg PO DAILY 11/07/18 Amitriptyline HCl [Elavil] 25 mg PO QHS 11/07/18 Aspirin E.C. [Ecotrin] 81 mg PO DAILY@0800 11/07/18 Atorvastatin Calcium 40 mg PO DAILY 11/07/18 Clopidogrel Bisulfate [Plavix] 75 mg PO DAILY 11/07/18 Furosemide [Lasix] 40 mg PO DAILY 11/07/18 Gabapentin [Neurontin] 300 mg PO TIDCM 11/07/18 Lisinopril 5 mg PO DAILY 11/07/18 Magnesium Oxide [Magnesium] 400 mg PO DAILY 11/07/18 Potassium 20 meq PO DAILY 11/07/18 gabapentin 600 mg tablet 600 mg PO TID 11/15/18 metoprolol succinate ER 100 mg tablet,extended release 24 hr 100 mg PO DAILY 11/15/18 nitroglycerin 0.4 mg sublingual tablet 0.4 mg SUBLINGUAL Q5-15M 11/15/18 pantoprazole 40 mg tablet,delayed release 40 mg PO DAILY 11/15/18 Oxycodone Myristate [Xtampza ER] 9 mg PO BID 12/12/18 levoFLOXacin tablet [Levaquin tablet] 750 mg PO DAILY #2 tab 12/16/18 Following Prescrptions Were Given to Patient: levoFLOXacin tablet [Levaquin tablet] 750 mg PO DAILY #2 tab Transmission Status: Received by [facility] Primary Care Physician: Oral Manuel MD [Primary Care Provider] - Please follow up with your Primary Care Physician in: Tuesday 12/19 Please Follow Up With: Kevin Albert MD When: 1 week Disposition: Home Minutes spent on discharge:: 35 Patient Condition:: Stable Medical Necessity - Tobacco Use Smoking Status: Current every day smoker Tobacco Use: Cigarettes Meaningful Use Info Meaningful Use Diagnoses (Choose all that apply): AMI - AMI Aspirin given w/in 24hrs of arrival?: Yes ASA at discharge?: Yes Statins at discharge?: Yes Mynor/ARB at discharge?: Yes Beta Shante at discharge?: Yes Done w/ Acute NH measure.: Yes Code Visit Inpatient E&M: 20383 Disch Hosp
== END 2018-12-16 14:30 | disposition home or self-care (01) | DRG 247 ==
LOC: ED 23:25 → PCU 23:39 → ICU 12-13 09:09
PROVIDERS: Internal Medicine Cardiovascular Disease; Admitting Provider Family Medicine; Emergency Provider Emergency Medicine; Family Provider Family Medicine; PCP Family Medicine; Referring Provider Family Medicine; Visit Provider Family Medicine
DX: I21.4 Non-ST elevation (NSTEMI) myocardial infarction (principal); I25.810 Atherosclerosis of coronary artery bypass graft(s) without angina pectoris; T82.855A Stenosis of coronary artery stent, initial encounter; I50.22 Chronic systolic (congestive) heart failure; I11.0 Hypertensive heart disease with heart failure; I95.81 Postprocedural hypotension; R60.0 Localized edema; I25.5 Ischemic cardiomyopathy; J44.9 Chronic obstructive pulmonary disease, unspecified; I71.4 Abdominal aortic aneurysm, without rupture; E78.5 Hyperlipidemia, unspecified; M06.9 Rheumatoid arthritis, unspecified; G89.4 Chronic pain syndrome; R13.10 Dysphagia, unspecified; K21.9 Gastro-esophageal reflux disease without esophagitis; I73.9 Peripheral vascular disease, unspecified; F32.9 Major depressive disorder, single episode, unspecified; F41.9 Anxiety disorder, unspecified; G47.33 Obstructive sleep apnea (adult) (pediatric); Y83.1 Surgical operation with implant of artificial internal device as the cause of abnormal reaction of the patient, or of later complication, without mention of misadventure at the time of the procedure; F17.210 Nicotine dependence, cigarettes, uncomplicated; Z79.82 Long term (current) use of aspirin; Z79.02 Long term (current) use of antithrombotics/antiplatelets; Z79.899 Other long term (current) drug therapy; I25.2 Old myocardial infarction; Z86.718 Personal history of other venous thrombosis and embolism; Z86.73 Personal history of transient ischemic attack (TIA), and cerebral infarction without residual deficits; Z95.1 Presence of aortocoronary bypass graft; Z95.810 Presence of automatic (implantable) cardiac defibrillator
CPT/HCPCS: 36415; 36569; 71045; 71275; 80048; 80053; 80061; 80202; 81001; 82962; 83735; 84484; 85025; 85027; 85347; 85610; 85730; 87040; 87077; 87086; 87149; 87186; 87641; 92928; 93005; 93306; 93459; 93971; 94002; 94640; 99152; 99153; 99285; 99406; J7030; J7040; Q9967; A4216; C1725; C1769; C1874; C1887; C1894; C9600; J2405

== ENCOUNTER → 2018-12-19 15:14 | Outpatient (CLI) | payer MEDICARE, SELFPAY ==
[2018-12-13 00:15] VITALS: BMI 26.4
[2018-12-13 11:07] VITALS: BMI 26.3
[2018-12-19 17:33] LABS: Absolute Lymphocyte Count 2.86 X10^3/uL (0.83-4.51); Absolute Neutrophil Count 3.9 X10^3/uL (2.0-7.7); Basophil% 1.2 % (0-1); Eosinophil# 0.68 X10^3/uL; Eosinophils% 8.4 % (0-5); Hematocrit 44.8 % (40-54); Hemoglobin 14.6 g/dL (13.0-16.5); Lymphocyte # 2.86 X10^3/ul (4.0); Lymphocyte % 35.5 % (19-41); Mean Corp Hgb Conc 32.6 g/dL (32-36); Mean Corpuscular Hgb 29.5 pg (27.0-32.0); Mean Corpuscular Volume 90.5 fL (80-94); Mean Platelet Vol. 9.7 fl (6.2-12.0); Monocyte# 0.48 X10^3/uL; NRBC Flagged by Analyzer 0 % (0-5); Neutrophil % 48.5 % (47-70); Platelet Count 294 K/mm3 (150-450); RBC Distribution Width CV 15.2 % (11.6-14.6); RBC Distribution Width SD 50.6 fl (35.1-43.9); Red Blood Count 4.95 M/mm3 (4.6-6.2); White Blood Count 8.1 K/mm3 (4.4-11.0)
[2018-12-19 17:45] LABS: ALB/GLOB Ratio 0.6 RATIO (0.9-2.4); AST(SGOT) 22 U/L (15-37); Alanine Aminotransfer ALT/SGPT 31 U/L (16-61); Albumin, Serum 3.1 g/dL (3.2-5.0); Alkaline Phosphatase 98 U/L (45-117); Anion Gap 7 (5-15); BUN 15 mg/dL (7-18); BUN/Creat Ratio 12.9 RATIO (10-20); Calcium,Total 9.3 mg/dL (8.5-10.1); Chloride 101 mmol/L (98-107); Cholesterol 133 mg/dL (200); Creatinine, Serum 1.16 mg/dL (0.70-1.30); EST Glomerular Filtration Rate 69 mL/min (>60); Est Glom Filt Rate - Afr Amer 84 mL/min (>60); Globulin 5.1 g/dL (2.2-4.2); Glucose 85 mg/dL (74-106); High Density Lipoprotein 18 mg/dL; Protein, Total 8.2 g/dL (6.4-8.2); Sodium Level 138 mmol/L (136-145); Triglycerides 142 mg/dL; Very Low Density Lipoprotein 28 mg/dL (5-40)
== END ==
PROVIDERS: Family Provider Family Medicine; PCP Family Medicine; Visit Provider Family Medicine
DX: I73.9 Peripheral vascular disease, unspecified (principal); Z13.220 Encounter for screening for lipoid disorders
CPT/HCPCS: 36415; 80053; 80061; 85025

== ENCOUNTER → 2019-01-11 11:38 | Outpatient (CLI) | payer MEDICARE, SELFPAY ==
[2018-12-13 00:15] VITALS: BMI 26.4
[2018-12-13 11:07] VITALS: BMI 26.3
[2019-01-11 13:07] LABS: Amphetamine Urine VISTA NEGATIVE (<1000 ng/mL); Barbiturate Urine VISTA NEGATIVE (< 200 ng/mL); Benzodiazepine Urine VISTA NEGATIVE (< 200 ng/mL); Cocaine Urine VISTA NEGATIVE (< 300 ng/mL); Ecstacy Urine VISTA NEGATIVE (< 500 ng/mL); Methadone Urine VISTA NEGATIVE (< 300 ng/mL); PCP Urine VISTA NEGATIVE (< 25 ng/mL); THC Urine VISTA NEGATIVE (< 50 ng/mL); Vista UDS pH Range 5
== END ==
PROVIDERS: Family Provider Family Medicine; PCP Family Medicine; Referring Provider Anesthesiology Pain Medicine; Visit Provider Anesthesiology Pain Medicine
DX: F11.20 Opioid dependence, uncomplicated (principal)
CPT/HCPCS: 80307

== ENCOUNTER 2019-02-18 12:58 | Emergency (ER) | payer MEDICARE, SELFPAY ==
[2018-12-13 11:07] VITALS: BMI 26.3
[2019-02-09 09:02] VITALS: BMI 26.4
[2019-02-18 13:00] VITALS: BP 138/76; PULSE 73; RESP 26; TEMP 36.6; O2SAT 98; BMI 26.6
--- NOTE | 2019-02-18 13:15 | EKG12_ITS ---
Test Reason : CP Blood Pressure : / mmHG Vent. Rate : 074 BPM Atrial Rate : 074 BPM P-R Int : 150 ms QRS Dur : 132 ms QT Int : 404 ms P-R-T Axes : 025 109 069 degrees QTc Int : 448 ms Normal sinus rhythm Right bundle branch block Anterolateral infarct , age undetermined Abnormal ECG Confirmed by JULIO SMART, TABATHA ([id number]), technical writer and editor MARILUZ PAGE ([id number]) on 02/20/2019 12:49:14 PM Referred By: DEN[place] Confirmed By:TABATHA KIM MD
--- NOTE | 2019-02-18 13:15 | RAD_ITS ---
STUDY: X-RAY CHEST REASON FOR EXAM: Male, 58 years old. Palpitations, left shoulder pain, SOB -- pt states defibrillator is shocking him TECHNIQUE: AP COMPARISON: 12/12/2018 FINDINGS: Two lead cardiac conduction device is seen via the left subclavian vein with lead tips projecting over the right atrium and right ventricle, respectively. Surgical clips project over the mediastinum. The lungs are clear and expanded. There is no demonstrated pleural abnormality. Stable size heart. Coronary artery calcifications/densities are noted. Normal mediastinum and jovanni. Normal visualized pulmonary arteries. There is atherosclerotic tortuosity of the aortic arch and descending thoracic aorta. No acute bony process. There is no demonstrated abnormality of the visualized soft tissue structures of the upper abdomen. RAD/Chest 1 View (Portable) IMPRESSION: Stable, nonacute portable x-ray examination of the chest. Electronically Signed: Nithin Martines MD ([place]) at 13:46 EST , Service support ,
[2019-02-18 13:18] VITALS: O2SAT 97
[2019-02-18] MEDS: fentaNYL 100 MCG/2 ML Ampul 50 MCG IV (13:25)
--- NOTE | 2019-02-18 13:34 | ED.VISSUMM ---
- ER Visit Summary Date of Service: 02/18/19 Chief Complaint: Defibrillator going off History of Present Illness: The patient is a 58 M who states that his defibrillator has shocked him multiple times this morning. Started this morning when he woke up. He has been shocked at least 4 times. He now has pain in his left mid chest. He states he did have some mild chest pain before the defibrillator started going off. He has a history of coronary disease and CHF. He had stents placed in his heart back in December. Dr. Albert is his lock operator. Physical Examination: Vital signs reviewed. HEENT exam unremarkable. Heart is regular rate and rhythm without murmurs. Lungs are clear to auscultation. He has an ice of the left upper chest. Abdomen is soft and nontender. There is a midline hernia with no tenderness. Extremities reveal no edema. Peripheral pulses are equal. Skin exam normal. Neurologic exam normal. Test Results: EKG is sinus rhythm with a rate of 74. There are no ST changes. He does have intermittent pacer spikes on the telemetry. Labs are normal except for glucose of 122. Chest x-ray reveals chronic changes. Emergency Department Course and Treatment: Patient was given fentanyl and then morphine for pain. At this point I see no ectopy on his telemetry. There is no arrhythmia that would cause his pacemaker or his defibrillator to fire. At this point I have asked the [facility] housing management representative to interrogate his pacemaker. It shows that his pacemaker is functioning normally. He has no shocks from his ICD. The administrative support technician noted that his pacemaker is sitting a little bit lower but unchanged from an x-ray that was done in November. He states that everything is functioning normally. At this point with a normal troponin and everything functioning normally I feel he can be discharged home. He does have a wound on his right inner thigh from a previous surgery that he says is scabbing over. I will give him some Bactroban cream for this. He needs to follow-up with Dr. Dow who implanted his pacemaker Treatment Plan: [] Disposition: Discharge Impression: Chest pain This note was generated with [employer] dictation software. It may contain incorrect words, spelling, and punctuation that were not noted in review of the chart prior to signing ED Disposition - Plan for ED Patient: Referrals: Oral Manuel MD [Primary Care Provider] -
[2019-02-18 14:02] VITALS: BP 105/69; PULSE 64; RESP 20; O2SAT 95
--- NOTE | 2019-02-18 14:03 | ED.RN ---
RN CALLED LAB TO CHECK ON BLOOD THAT WAS SENT ONE HOUR AGO. BI DATA MODELER STATES THEY WILL BE RAN SHORTLY.
[2019-02-18 14:07] LABS: Absolute Lymphocyte Count 2.58 X10^3/uL (0.83-4.51); Absolute Neutrophil Count 4.9 X10^3/uL (2.0-7.7); Basophil# 0.12 X10^3/uL; Basophil% 1.4 % (0-1); Eosinophil# 0.46 X10^3/uL; Eosinophils% 5.4 % (0-5); Hematocrit 49.4 % (40-54); Hemoglobin 16.2 g/dL (13.0-16.5); Lymphocyte # 2.58 X10^3/ul (4.0); Lymphocyte % 30.2 % (19-41); Mean Corp Hgb Conc 32.8 g/dL (32-36); Mean Corpuscular Hgb 30.1 pg (27.0-32.0); Mean Corpuscular Volume 91.7 fL (80-94); Mean Platelet Vol. 10.6 fl (6.2-12.0); Monocyte# 0.47 X10^3/uL; Monocyte% 5.5 % (0-10); NRBC Flagged by Analyzer 0 % (0-5); Neutrophil # 4.85 X10^3/uL (2.7-7.7); Neutrophil % 56.9 % (47-70); Platelet Count 216 K/mm3 (150-450); RBC Distribution Width SD 50.8 fl (35.1-43.9); Red Blood Count 5.39 M/mm3 (4.6-6.2); White Blood Count 8.5 K/mm3 (4.4-11.0)
[2019-02-18 14:24] LABS: Anion Gap 5 (5-15); BUN 20 mg/dL (7-18); BUN/Creat Ratio 15.6 RATIO (10-20); Calcium,Total 9.5 mg/dL (8.5-10.1); Chloride 101 mmol/L (98-107); Creatinine, Serum 1.28 mg/dL (0.70-1.30); EST Glomerular Filtration Rate 62 mL/min (>60); Est Glom Filt Rate - Afr Amer 75 mL/min (>60); Estimated Creatinine Clearance 60.25 ml/min; Glucose 122 mg/dL (74-106); Potassium 3.8 mmol/L (3.5-5.1); Sodium Level 136 mmol/L (136-145)
[2019-02-18 15:01] LABS: Magnesium 2.3 mg/dL (1.6-2.6)
[2019-02-18 15:02] VITALS: BP 106/70; PULSE 63; RESP 15; O2SAT 98
--- NOTE | 2019-02-18 15:23 | ED.RN ---
rep from [facility] to be here within an hour to interrogate patient's pacemaker.
[2019-02-18] MEDS: Morphine 4 MG/ML Syringe IV (15:30)
[2019-02-18 16:04] VITALS: BP 104/68; PULSE 62; RESP 12; O2SAT 95
--- NOTE | 2019-02-18 16:44 | ED.DEP ---
ED Disposition - Plan for ED Patient: Disposition: Home or Assisted Living Instructions: Biventricular Pacemaker and ICD (Biventricular ICD) Prescriptions: Mupirocin [Bactroban] 1 applic TOPICAL TID #1 tube Prescription Printed Referrals: Oral Manuel MD [Primary Care Provider] -
[2019-02-18 16:48] VITALS: BP 106/76; PULSE 68; RESP 14; O2SAT 96
== END 2019-02-18 16:50 | disposition home or self-care (01) ==
PROVIDERS: Emergency Provider Emergency Medicine; Family Provider Family Medicine; PCP Family Medicine
DX: R07.9 Chest pain, unspecified (principal); I25.10 Atherosclerotic heart disease of native coronary artery without angina pectoris; I48.91 Unspecified atrial fibrillation; I50.9 Heart failure, unspecified; Z72.0 Tobacco use; Z79.02 Long term (current) use of antithrombotics/antiplatelets; Z79.82 Long term (current) use of aspirin; Z79.899 Other long term (current) drug therapy; Z95.5 Presence of coronary angioplasty implant and graft
CPT/HCPCS: 71045; 80048; 83735; 84484; 85025; 93005; 96374; 96375; 99284; A4216

== ENCOUNTER → 2019-03-01 17:27 | Outpatient (CLI) | payer MEDICARE, SELFPAY ==
[2018-12-13 11:07] VITALS: BMI 26.3
[2019-02-18 13:00] VITALS: BMI 26.6
== END ==
PROVIDERS: PCP Family Medicine; Referring Provider Family Medicine; Visit Provider Family Medicine
DX: T81.49XA Infection following a procedure, other surgical site, initial encounter (principal); X58.XXXA Exposure to other specified factors, initial encounter; Y93.9 Activity, unspecified; Y92.9 Unspecified place or not applicable; Y99.9 Unspecified external cause status
CPT/HCPCS: 87070; 87205

== ENCOUNTER → 2019-04-24 10:55 | Outpatient (CLI) | payer MEDICARE, SELFPAY ==
[2018-12-13 11:07] VITALS: BMI 26.3
[2019-04-24 12:59] LABS: PSA,Total- Diagnostic 0.42 ng/mL (0.0-4.0)
== END ==
PROVIDERS: PCP Family Medicine; Referring Provider Family Medicine; Visit Provider Family Medicine
DX: R39.11 Hesitancy of micturition (principal)
CPT/HCPCS: 36415; 84153

== ENCOUNTER → 2019-04-27 14:36 | Outpatient (CLI) | payer MEDICARE, SELFPAY ==
[2018-12-13 11:07] VITALS: BMI 26.3
--- NOTE | 2019-04-27 14:50 | BD_ITS ---
STUDY: DUAL ENERGY X-RAY ABSORPTIOMETRY / DXA REASON FOR EXAM: Male, 59 years old. ALANA OF 4 INCHES -- SMOKER -- HX OF ALCOHOLISM -- USES STEROID INHALERS -- TAKES LASIX DAILY -- TAKES CALCIUM -- CURRENTLY ON FOSAMAX -- DOES LITTLE EXERCISE -- HX OF MULTIPLE FX''s THROUGHOUT BODY TECHNIQUE: Bone Mineral Density (BMD) measurements of lumbar spine and bilateral hips were obtained. COMPARISON: None. FINDINGS: Lumbar Spine (L1-L4): g/cm2 (0.832) / T-score (-3.4) / Z-score (-3.1) Findings are suggestive of osteoporosis with a high fracture risk. Left Femur Total: g/cm2 (0.948) / T-score (-1.1) / Z-score (-0.6) Left Femoral Neck: g/cm2 (0.847) / T-score (-1.7) / Z-score (-0.9) Right Femur Total: g/cm2 (0.879) / T-score (-1.5) / Z-score (-1.1) Right Femoral Neck: g/cm2 (0.839) / T-score (-1.8) / Z-score (-0.9) BD/Dexa Bone Density Study IMPRESSION: The patient is considered osteoporotic as outlined below according to World Long Organization (WHO) criteria with a high fracture risk. Reference Information: The T-score is the number of standard deviations above or below the standard which is normal for young adults at their peak bone mineral density. The World Health Organization (WHO) interprets the T-scores as follows: Above -1 Normal bone density Between -1 and -2.5 Osteopenia Equal to / or below -2.5 Osteoporosis As a practical clinical guideline, osteopenia may be graded as follows: Mild -1 through -1.5 Moderate -1.6 through -2.0 Severe -2.1 through -2.4 The Z-score is the number of standard deviations above or below age-matched controls. A Z-score of less than -1.5 would be considered abnormal. References: 1. NIH Osteoporosis and Related Bone Diseases http://www.osteo.org 2. International Society for Clinical Densitometry http://www.iscd.org 3. National Osteoporosis Foundation http://www.nof.org Electronically Signed: Geovany Spring, at 8:54 EDT , Service support ,
== END ==
PROVIDERS: PCP Family Medicine; Referring Provider Family Medicine; Visit Provider Family Medicine
DX: M81.0 Age-related osteoporosis without current pathological fracture (principal)
CPT/HCPCS: 77080

== ENCOUNTER 2019-05-27 15:31 | Observation (INO) | payer MEDICARE, SELFPAY ==
[2018-12-13 11:07] VITALS: BMI 26.3
[2019-04-28 09:24] VITALS: BMI 26.6
[2019-05-27] VITALS (18 sets, daily range): BP systolic 106–147; BP diastolic 63–94; PULSE 57–70; RESP 13–24; TEMP 36.1–36.7; O2SAT 93–99; BMI 28.7; BMI 28.0
--- NOTE | 2019-05-27 15:40 | CT_ITS ---
We are attempting to reach an attending provider to discuss findings. An addendum with communication details will be sent when the communication is complete. STUDY: CT BRAIN WITHOUT CONTRAST REASON FOR EXAM: Male, 59 years old. STROKE PROTOCOL RADIATION DOSAGE (If Supplied By Facility): CTDIvol = ( 44.99 ) mGy, DLP = ( 812.98 ) mGycm TECHNIQUE: Transaxial CT imaging of the brain was performed without administration of intravenous contrast material. Individualized dose optimization techniques were used for this CT. COMPARISON: No relevant priors. FINDINGS: Normal soft tissue structures. Normal calvarium. Normal size ventricles and extra-axial spaces for the patient''s age. Normal white matter tracts of the cerebral hemispheres. Normal basal ganglia and thalami. Normal brainstem. Normal cerebellum. There is no intracranial hemorrhage. There are no findings of an acute ischemic infarction. Mucosal thickening in the right maxillary sinus. CT/Brain/Head without Contrast IMPRESSION: Chronic sinusitis, otherwise negative unenhanced CT scan of the brain. Electronically Signed: Lola Conroy MD at 16:08 EDT Tel , Service support ,
--- NOTE | 2019-05-27 15:40 | EKG12_ITS ---
Test Reason : Blood Pressure : / mmHG Vent. Rate : 062 BPM Atrial Rate : 062 BPM P-R Int : 174 ms QRS Dur : 138 ms QT Int : 440 ms P-R-T Axes : 027 109 074 degrees QTc Int : 446 ms Suspect unspecified pacemaker failure Normal sinus rhythm Right bundle branch block Cannot rule out Inferior infarct , age undetermined Anterolateral infarct , age undetermined Abnormal ECG Confirmed by JULIO SMART, TABATHA ([id number]), order editor SHERIN LANGSTON ([id number]) on 05/29/2019 8:30:16 AM Referred By: GARETH Confirmed By:TABATHA KIM MD
--- NOTE | 2019-05-27 15:40 | CT_ITS ---
STUDY: CTA HEAD AND NECK WITH CONTRAST REASON FOR EXAM: Male, 59 years old. STROKE PROTOCOL RADIATION DOSAGE (If Supplied By Facility): CTDIvol = ( 15.35 ) mGy, DLP = ( 594.59 ) mGycm TECHNIQUE: CT angiography was performed with a multi-detector CT scanner. Data acquisition was obtained from the skull base through the vertex following intravenous administration of 100CC ISOVUE 370. MIP images were reconstructed from the axial data set. Post-processing of the angiographic images was performed, with multiplanar reformation and 3D reconstruction. Individualized dose optimization techniques were used for this CT. COMPARISON: No relevant priors. FINDINGS: Bilateral petrous and cavernous carotid arteries are patent. Mild atherosclerotic calcification of the cavernous carotid arteries. Normal bilateral anterior cerebral arteries. Patent anterior communicating artery. Normal middle cerebral arteries bilaterally. Nonvisualized left posterior communicating artery. origin of the right posterior cerebral artery, with robust posterior communicating artery and absent P1 segment on the right. Normal bilateral vertebral arteries. Normal basilar artery with a normal basilar bifurcation. The visualized bilateral superior cerebellar (SCA) arteries are normal. Normal left P1 segment. Normal bilateral P2 and visualized P3 segments of the posterior cerebral arteries. There is no demonstrated aneurysm of the [place]. AORTIC ARCH: Aortic arch and origins of the right brachiocephalic and left carotid arteries are excluded from the study. Normal origin of the left subclavian artery. RIGHT CAROTID ARTERIES: Normal right common carotid artery (CCA). Trace atherosclerotic calcification of the right carotid bulb, no stenosis. Trace atherosclerotic calcification of the proximal right internal carotid artery, no stenosis. Normal visualized cervical portion of the right internal carotid artery. Normal origin of the right external carotid artery (ECA). LEFT CAROTID ARTERIES: Normal left common carotid artery (CCA). Normal left common carotid bulb. Normal origin of the left internal carotid (ICA) artery without a hemodynamically significant stenosis. Normal visualized cervical portion of the left internal carotid artery. Normal origin of the left external carotid artery (ECA). VERTEBRAL ARTERIES: Normal bilateral vertebral arteries. CT/CTA Head AND Neck W/ Contrast IMPRESSION: Normal CTA Head and neck with contrast. Electronically Signed: Lola Conroy MD at 16:55 EDT Tel , Service support ,
--- NOTE | 2019-05-27 15:40 | RAD_ITS ---
STUDY: X-RAY CHEST REASON FOR EXAM: Male, 59 years old. NEURO SX TECHNIQUE: Single AP portable view of the chest. COMPARISON: 02/18/2019. FINDINGS: The lungs are clear and expanded. There is no demonstrated pleural abnormality. Normal size heart. Pacemaker/AICD on the left. Multiple coronary stents. Normal mediastinum and jovanni. Normal visualized pulmonary arteries. Normal visualized aortic arch and descending thoracic aorta. Normal visualized thoracic spine. Normal visualized ribs, clavicles, and shoulders. There is no demonstrated abnormality of the visualized soft tissue structures of the upper abdomen. RAD/Chest 1 View IMPRESSION: Normal x-ray examination of the chest. Electronically Signed: Lola Conroy MD at 16:17 EDT Tel , Service support ,
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
--- NOTE | 2019-05-27 16:09 | NURSING ---
FAXED FACESHEET TO [facility]
[2019-05-27 16:58] LABS: Absolute Lymphocyte Count 2.38 X10^3/uL (0.83-4.51); Absolute Neutrophil Count 3.7 X10^3/uL (2.0-7.7); Basophil# 0.11 X10^3/uL; Basophil% 1.6 % (0-1); Eosinophil# 0.47 X10^3/uL; Eosinophils% 6.7 % (0-5); Hematocrit 50.1 % (40-54); Hemoglobin 16.5 g/dL (13.0-16.5); Lymphocyte # 2.38 X10^3/ul (4.0); Lymphocyte % 33.8 % (19-41); Mean Corp Hgb Conc 32.9 g/dL (32-36); Mean Corpuscular Volume 88.2 fL (80-94); Mean Platelet Vol. 10.6 fl (6.2-12.0); Monocyte# 0.37 X10^3/uL; Monocyte% 5.2 % (0-10); NRBC Flagged by Analyzer 0 % (0-5); Neutrophil # 3.69 X10^3/uL (2.7-7.7); Neutrophil % 52.3 % (47-70); Platelet Count 216 K/mm3 (150-450); RBC Distribution Width CV 15.6 % (11.6-14.6); RBC Distribution Width SD 50.3 fl (35.1-43.9); Red Blood Count 5.68 M/mm3 (4.6-6.2); White Blood Count 7.1 K/mm3 (4.4-11.0)
[2019-05-27 17:07] LABS: Partial Thromboplast Time 32.9 Seconds (24.1-36.2); Prothrombin Time (Protime)PT. 13.1 SECONDS (11.7-14.9)
[2019-05-27 17:22] LABS: Anion Gap 5 (5-15); BUN 12 mg/dL (7-18); BUN/Creat Ratio 10.8 RATIO (10-20); Calcium,Total 9.3 mg/dL (8.5-10.1); Chloride 103 mmol/L (98-107); Creatinine, Serum 1.11 mg/dL (0.70-1.30); EST Glomerular Filtration Rate 73 mL/min (>60); Est Glom Filt Rate - Afr Amer 88 mL/min (>60); Estimated Creatinine Clearance 68.65 ml/min; Glucose 92 mg/dL (74-106); Potassium 4.1 mmol/L (3.5-5.1); Sodium Level 138 mmol/L (136-145)
--- NOTE | 2019-05-27 17:40 | NURSING ---
DR DEVINE IN ER
--- NOTE | 2019-05-27 17:47 | NURSING ---
Addendum entered by Aleta Fonseca 05/27/19 17:47: OBS Original Note: PCU STROKE ASHELFAH
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
[2019-05-27] MEDS: Gabapentin 600 MG Tablet PO ×2 (20:31→23:55)
[2019-05-27] MEDS: Albuterol 2.5 MG/3 ML VIAL.NEB. INHALATION (21:14)
[2019-05-27] MEDS: Atorvastatin Calcium 40 MG Tablet PO (22:32)
[2019-05-27] MEDS: Pantoprazole Sodium 40 MG Tablet PO (22:32)
[2019-05-27] MEDS: Amitriptyline 25 MG Tablet PO (22:32)
[2019-05-28] VITALS (14 sets, daily range): BP systolic 106–123; BP diastolic 60–73; PULSE 60–75; RESP 16–18; TEMP 36.4–36.6; O2SAT 92–96
--- NOTE | 2019-05-28 02:58 | NURSING ---
Chronic facial droop to left side related to Christensen's Palsy
[2019-05-28] MEDS: Gabapentin 600 MG Tablet PO ×3 (06:34→21:40)
[2019-05-28 07:15] LABS: Cholesterol 127 mg/dL (200); High Density Lipoprotein 19 mg/dL; Triglycerides 359 mg/dL; Very Low Density Lipoprotein 72 mg/dL (5-40)
[2019-05-28] MEDS: Clopidogrel Bisulfate 75 MG Tablet PO (10:09)
[2019-05-28] MEDS: Gabapentin 300 MG Capsule PO ×3 (10:10→17:15)
[2019-05-28] MEDS: Aspirin E.C. 81 MG Tablet PO (10:10)
[2019-05-28] MEDS: Pantoprazole Sodium 40 MG Tablet PO ×2 (10:10→21:42)
--- NOTE | 2019-05-28 12:18 | PN_ITS ---
<Pascale Martines - Last Filed: 05/28/19 13:00> Patient Problems: Active and Suspected Problems (Last Updated 05/27/19 @ 17:[address] Natalia Finn MD) Stroke (Acute) Stroke (Suspected) Subjective: Patient seen and examined. Denies further facial droop, left-sided weakness or other neurologic symptoms or focal deficits. Patient states he has had numerous similar episodes in the past which typically last 1 day to months. - Physical Exam Vitals/I&O's: Vital Signs Temp Pulse Resp BP Pulse Ox 97.8 F 72 18 115/73 96 05/28/19 12:16 05/28/19 12:16 05/28/19 12:16 05/28/19 12:16 05/28/19 12:16 Oxygen Delivery Method Room Air Weight: 179 lb 0.246 oz Body Mass Index (BMI) 28.0 Finger Stick Blood Glucose 101 Intake and Output for Last 24 Hours 05/26/19 05/27/19 05/28/19 23:59 23:59 23:59 Intake Total 480 / 480 240 / 240 Balance 480 / 480 240 / 240 General: Alert, Oriented x3, Cooperative HEENT: Atraumatic, PERRLA, EOMI, Normocephalic Neck: Supple, No JVD, Negative Carotid Bruits Lungs: Clear to auscultation, Normal air movement Cardiovascular: Regular rate, No murmurs Abdomen: Bowel Sounds Present, Soft, Non Tender, Non-Distended Extremities: No clubbing, No cyanosis, No edema, Capillary Refill Less than 3 Seconds Skin: No rashes, No breakdown Musculoskeletal: No Tenderness to Palpation of Joints or Extremities Neurological: Cranial nerves II-XII grossly intact, Neuro grossly intact Psych/Mental Status: Normal Affect, Appropriate Laboratory Results 05/27/19 15:40: WBC 7.1, RBC 5.68, Hgb 16.5, Hct 50.1, MCV 88.2, MCH 29.0, MCHC 32.9, RDW Std Deviation 50.3 H, RDW Coeff of Jack 15.6 H, Plt Count 216, MPV 10.6, Immature Gran % (Auto) 0.400, Neut % (Auto) 52.3, Lymph % (Auto) 33.8, Morrow % (Auto) 5.2, Eos % (Auto) 6.7 H, Baso % (Auto) 1.6 H, Absolute Neuts (auto) 3.7, Absolute Lymphs (auto) 2.38, Nucleated RBC % 0 05/27/19 15:40: PT 13.1, INR 1.0, APTT 32.9 05/27/19 15:40: Sodium 138, Potassium 4.1, Chloride 103, Carbon Dioxide 30.0, Anion Gap 5, BUN 12, Creatinine 1.11, Estim Creat Clear Calc 68.65, Est GFR (MDRD) Af Amer 88, Est GFR (MDRD) Non-Af 73, BUN/Creatinine Ratio 10.8, Glucose 92, Calcium 9.3, Troponin I < 0.015 05/27/19 20:26: Troponin I < 0.015 05/28/19 05:52: Triglycerides 359 H, Cholesterol 127, LDL Cholesterol 36, VLDL Cholesterol 72 H, HDL Cholesterol 19 L Current Medications Albuterol Sulfate (Ventolin Aerosols) 2.5 mg INHALATION Q6H PRN PRN PRN Reason: Shortness of breath, wheezing Last Admin: 05/27/19 21:14 Dose: 2.5 mg Documented by: Amitriptyline HCl (Elavil) 25 mg PO QHS [facility] Last Admin: 05/27/19 22:32 Dose: 25 mg Documented by: Aspirin (Ecotrin) 81 mg PO DAILY@0800 [facility] Last Admin: 05/28/19 10:10 Dose: 81 mg Documented by: Atorvastatin Calcium (Lipitor) 40 mg PO QHS [facility] Last Admin: 05/27/19 22:32 Dose: 40 mg Documented by: Clopidogrel Bisulfate (Plavix) 75 mg PO DAILY [facility] Last Admin: 05/28/19 10:09 Dose: 75 mg Documented by: Enoxaparin Sodium (Lovenox) 40 mg SC DAILY [facility] Last Admin: 05/28/19 10:12 Dose: Not Given Documented by: Furosemide (Lasix) 40 mg PO DAILY@1200 [facility] Last Admin: 05/28/19 10:21 Dose: Not Given Documented by: Gabapentin (Neurontin) 600 mg PO TID [facility] Last Admin: 05/28/19 06:34 Dose: 600 mg Documented by: Gabapentin (Neurontin) 300 mg PO TIDCM [facility] Last Admin: 05/28/19 10:10 Dose: 300 mg Documented by: Sodium Chloride () 250 mls @ 15 mls/hr IV .[id number] PRN PRN Reason: Saline Flush Sodium Chloride () 250 mls @ 15 mls/hr IV .[id number] PRN PRN Reason: Additional IVPB Infusion Labetalol HCl (Trandate) 20 mg IV X1 PRN PRN Reason: BLOOD PRESSURE Lisinopril (Zestril) 5 mg PO DAILY@1800 [facility] Metoprolol Succinate (Toprol Xl (Beta Shante)) 50 mg PO DAILY [facility] Last Admin: 05/28/19 10:20 Dose: Not Given Documented by: Nutritional Formula (Lactose Free) (Ensure Enlive) 120 ml PO 4X/DAY [facility] Last Admin: 05/28/19 10:11 Dose: Not Given Documented by: Ondansetron HCl (Zofran) 4 mg IV Q8H PRN PRN PRN Reason: NAUSEA/VOMITING Pantoprazole Sodium (Protonix) 40 mg PO BID [facility] Last Admin: 05/28/19 10:10 Dose: 40 mg Documented by: Potassium Chloride (K-Dur) 20 meq PO DAILY [facility] Last Admin: 05/28/19 10:09 Dose: 20 meq Documented by: Senna/Docusate Sodium (Senokot-S, Janell-Colace) 2 tablet PO BID PRN PRN PRN Reason: Constipation Sodium Chloride () 10 - 40 ml IV UD PRN PRN Reason: SALINE FLUSH Zolpidem Tartrate (Ambien (Generic)) 5 mg PO QHS PRN PRN PRN Reason: INSOMNIA Medical Necessity - Tobacco Use Smoking Status: Current every day smoker Tobacco Use: Cigarettes Assessment/Plan All Active Problems (Last Updated 05/27/19 @ 17:[address] Natalia Finn MD) Stroke (Acute) 1. TIA, rule out stroke-brain CT unremarkable. Head and neck CTA unremarkable. Unable to obtain MRI due to ICD/pacemaker. Patient reports a history of more than 20 strokes in the past. He is already on aspirin, statin, Plavix. PT/OT/ST. Obtain tele-neurology consult for any additional recommendations. 2. 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 Reportedly, during removal of the sternum he had an injury to his esophagus resulting in chronic dysphagia. Consult ST. 3. CAD with history of CABG and stents-cardiac catheterization 12/13/2018 demonstrated severe triple-vessel disease involving the kaw left anterior descending artery with in-stent stenosis and high-grade distal disease, left circumflex artery with in-stent stenosis of 95% and totally occluded right coronary artery with totally occluded bypass grafts. Patient underwent PTCA/ROYCE to mid LCx and distal LAD. Continue aspirin, statin, Plavix, metoprolol, lisinopril. Patient follows with Dr. Albert. 4. Ischemic cardiomyopathy status post ICD/pacemaker-echocardiogram November 2018 demonstrated an EF of 35%. Pacemaker check 03/13/2019 with no significant arrhythmias. 5. Hypertension-stable, continue metoprolol, lisinopril, Lasix. 6. Hyperlipidemia- continue statin. 7. Chronic COPD-no exacerbation. Continue albuterol aerosol. 8. LETTY-continue BiPAP nightly. 9. PVD with history of bypass-continue aspirin, statin, Plavix. 10. GERD- continue PPI. 11. Left lower lobe 5 mm lung nodule-noted on chest CTA 12/12/2018. Patient is recommended to have repeat CT at 12 months following initial scan. DVT prophylaxis-Lovenox subcu This patient was seen by SOY Ramirez under the supervision of Dr. Deutsch. 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 Patient had some blurry vision on the left side of visual field for movement and then resolved. No quadrantanopsia/hemianopia. Patient states he has multiple AL and stroke in the past. Patient has atherosclerotic disease in the right lower extremity and probably had right femoropopliteal bypass and has chronic decreased sensation on right lower one third of leg since then. As per nursing staff, NIH stroke scale 2, 1.4 minor facial paralysis and 1 form mild to moderate sensory loss. - Physical Exam Vitals/I&O's: Vital Signs Temp Pulse Resp BP Pulse Ox 97.8 F 72 18 115/73 96 05/28/19 12:16 05/28/19 12:16 05/28/19 12:16 05/28/19 12:16 05/28/19 12:16 Oxygen Delivery Method Room Air Weight: 179 lb 0.246 oz Body Mass Index (BMI) 28.0 Finger Stick Blood Glucose 101 Intake and Output for Last 24 Hours 05/26/19 05/27/19 05/28/19 23:59 23:59 23:59 Intake Total 480 / 480 906 / 906 Balance 480 / 480 906 / 906 General: Alert, Oriented x3, Cooperative HEENT: Atraumatic, PERRLA, EOMI, Normocephalic Neck: Supple, No JVD, Negative Carotid Bruits Lungs: Clear to auscultation, Normal air movement Cardiovascular: Regular rate, Regular Rhythm, Normal S1, Normal S2, No murmurs, - - On sharepoint admin paced rhythm. Blood pressure was on lower side 107/65. Heart rate 60/min. Abdomen: Bowel Sounds Present, Soft, Non Tender, Non-Distended Extremities: No edema, Capillary Refill Less than 3 Seconds Skin: No rashes, No breakdown Musculoskeletal: No Tenderness to Palpation of Joints or Extremities, Arthritic Changes Neurological: - - Facial paralysis, 2 and mild to moderate sensory loss 1, total NIH stroke scale 3. Psych/Mental Status: Normal Affect, Appropriate Laboratory Results 05/27/19 15:40: WBC 7.1, RBC 5.68, Hgb 16.5, Hct 50.1, MCV 88.2, MCH 29.0, MCHC 32.9, RDW Std Deviation 50.3 H, RDW Coeff of Jack 15.6 H, Plt Count 216, MPV 10.6, Immature Gran % (Auto) 0.400, Neut % (Auto) 52.3, Lymph % (Auto) 33.8, Morrow % (Auto) 5.2, Eos % (Auto) 6.7 H, Baso % (Auto) 1.6 H, Absolute Neuts (auto) 3.7, Absolute Lymphs (auto) 2.38, Nucleated RBC % 0 05/27/19 15:40: PT 13.1, INR 1.0, APTT 32.9 05/27/19 15:40: Sodium 138, Potassium 4.1, Chloride 103, Carbon Dioxide 30.0, Anion Gap 5, BUN 12, Creatinine 1.11, Estim Creat Clear Calc 68.65, Est GFR (MDRD) Af Amer 88, Est GFR (MDRD) Non-Af 73, BUN/Creatinine Ratio 10.8, Glucose 92, Calcium 9.3, Troponin I < 0.015 05/27/19 20:26: Troponin I < 0.015 05/28/19 05:52: Triglycerides 359 H, Cholesterol 127, LDL Cholesterol 36, VLDL Cholesterol 72 H, HDL Cholesterol 19 L Current Medications Albuterol Sulfate (Ventolin Aerosols) 2.5 mg INHALATION Q6H PRN PRN PRN Reason: Shortness of breath, wheezing Last Admin: 05/27/19 21:14 Dose: 2.5 mg Documented by: Amitriptyline HCl (Elavil) 25 mg PO QHS [facility] Last Admin: 05/27/19 22:32 Dose: 25 mg Documented by: Aspirin (Ecotrin) 81 mg PO DAILY@0800 [facility] Last Admin: 05/28/19 10:10 Dose: 81 mg Documented by: Atorvastatin Calcium (Lipitor) 40 mg PO QHS [facility] Last Admin: 05/27/19 22:32 Dose: 40 mg Documented by: Clopidogrel Bisulfate (Plavix) 75 mg PO DAILY [facility] Last Admin: 05/28/19 10:09 Dose: 75 mg Documented by: Enoxaparin Sodium (Lovenox) 40 mg SC DAILY [facility] Last Admin: 05/28/19 10:12 Dose: Not Given Documented by: Furosemide (Lasix) 40 mg PO DAILY@1200 [facility] Last Admin: 05/28/19 10:21 Dose: Not Given Documented by: Gabapentin (Neurontin) 600 mg PO TID [facility] Last Admin: 05/28/19 06:34 Dose: 600 mg Documented by: Gabapentin (Neurontin) 300 mg PO TIDCM [facility] Last Admin: 05/28/19 12:24 Dose: 300 mg Documented by: Sodium Chloride () 250 mls @ 15 mls/hr IV .[id number] PRN PRN Reason: Saline Flush Sodium Chloride () 250 mls @ 15 mls/hr IV .[id number] PRN PRN Reason: Additional IVPB Infusion Labetalol HCl (Trandate) 20 mg IV X1 PRN PRN Reason: BLOOD PRESSURE Lisinopril (Zestril) 5 mg PO DAILY@1800 [facility] Metoprolol Succinate (Toprol Xl (Beta Shante)) 50 mg PO DAILY [facility] Last Admin: 05/28/19 10:20 Dose: Not Given Documented by: Nutritional Formula (Lactose Free) (Ensure Enlive) 120 ml PO 4X/DAY [facility] Last Admin: 05/28/19 12:24 Dose: Not Given Documented by: Ondansetron HCl (Zofran) 4 mg IV Q8H PRN PRN PRN Reason: NAUSEA/VOMITING Pantoprazole Sodium (Protonix) 40 mg PO BID [facility] Last Admin: 05/28/19 10:10 Dose: 40 mg Documented by: Potassium Chloride (K-Dur) 20 meq PO DAILY [facility] Last Admin: 05/28/19 10:09 Dose: 20 meq Documented by: Senna/Docusate Sodium (Senokot-S, Janell-Colace) 2 tablet PO BID PRN PRN PRN Reason: Constipation Sodium Chloride () 10 - 40 ml IV UD PRN PRN Reason: SALINE FLUSH Zolpidem Tartrate (Ambien (Generic)) 5 mg PO QHS PRN PRN PRN Reason: INSOMNIA Assessment/Plan This patient was seen in conjunction with Pascale MCKINNON. I have independently interviewed and examined the patient and reviewed pertinent history, examination findings, laboratory and plan of management. I have reviewed the note and agree with the documented findings with the few additional points. In brief, patient is admitted for left-sided weakness which is resolved with working diagnosis of TIA rule out ischemic stroke. Patient cannot have MRI secondary to pacemaker. Head and neck CT unremarkable. Patient is on appropriate medications for stroke including aspirin, Plavix and statin. PT OT and speech evaluation. BP and glucose control as per stroke guidelines. Patient has multiple comorbidities including coronary artery disease, peripheral arterial disease of right lower extremity status post possible femoral-popliteal bypass surgery, CABG with postoperative complication of his sternal infection which required sternal removal and injury to esophagus during surgery and resultant chronic dysphagia. Patient is on appropriate medication as per coronary artery disease. On metoprolol and lisinopril Chronic heart failure, ischemic in nature status post AICD: Echo of November 2018 reported as EF 35%. healthcare science specialist shows paced rhythm with PVCs. Other comorbidities include hypertension dyslipidemia, COPD, obstructive sleep apnea on BiPAP, GERD, left: 5 mm lung nodule in November 2018: Patient recommended to have repeat CT at 12 months following scan. COPD stable. I have discussed my assessment with Pascale MCKINNON and orders have been reviewed. Inpatient E&M: 47444 Subs Hosp L2
[2019-05-28] MEDS: Lisinopril 5 MG Tablet PO (17:15)
[2019-05-28] MEDS: Amitriptyline 25 MG Tablet PO (21:41)
[2019-05-28] MEDS: Atorvastatin Calcium 80 MG Tablet PO (21:44)
[2019-05-29] VITALS (7 sets, daily range): BP systolic 92–119; BP diastolic 59–83; PULSE 60–89; RESP 16; TEMP 36.6–36.7; O2SAT 94–96
[2019-05-29] MEDS: Gabapentin 600 MG Tablet PO (06:41)
[2019-05-29] MEDS: Clopidogrel Bisulfate 75 MG Tablet PO (09:36)
[2019-05-29] MEDS: Aspirin E.C. 81 MG Tablet PO (09:38)
[2019-05-29] MEDS: Pantoprazole Sodium 40 MG Tablet PO (09:38)
[2019-05-29] MEDS: Gabapentin 300 MG Capsule PO ×2 (09:38→12:09)
[2019-05-29] MEDS: Metoprolol(XL)Succ 50 MG Tablet PO (09:40)
--- NOTE | 2019-05-29 10:55 | DCINST_ITS ---
- Discharge Diagnoses Current Active Problems: Current Active and Chronic Problems (Last Updated 05/27/19 @ 17:[address] Natalia Finn MD) TIA You will use the following diet at home:: Cardiac Discharge Activity: Return to Normal Activity Call your doctor if you observe: Numbness or Tingling, Shortness of breath, Dizziness, Fainting spells Allergies/Adverse Reactions: Allergies latex Allergy (Unknown, Verified 05/27/19 17:48) unknown acetaminophen [From Darvocet-N] Allergy (Verified 05/27/19 17:48) Anaphylaxis black pepper Allergy (Verified 05/27/19 20:29) Rash SOB diphenhydramine [From Benadryl] Allergy (Verified 05/27/19 17:48) Rash NSAIDS (Non-Steroidal Anti-Inflamma Allergy (Verified 05/27/19 17:48) Anaphylaxis oxycodone [From Percocet] Allergy (Verified 05/27/19 17:48) Anaphylaxis peas Allergy (Verified 05/27/19 20:29) Rash SOB Penicillins Allergy (Verified 05/27/19 17:48) Anaphylaxis propoxyphene [From Darvocet-N] Allergy (Verified 05/27/19 17:48) Anaphylaxis hydrocodone [From Vicodin] Adverse Reaction (Mild, Verified 05/27/19 17:48) Nausea/Vom/Diarrhea Medications to take at Discharge Alendronate Sodium 5 mg PO DAILY 11/07/18 Aspirin E.C. [Ecotrin] 81 mg PO DAILY@0800 11/07/18 Clopidogrel Bisulfate [Plavix] 75 mg PO DAILY 11/07/18 Furosemide [Lasix] 40 mg PO DAILY 11/07/18 Gabapentin [Neurontin] 300 mg PO TIDCM 11/07/18 Lisinopril 5 mg PO DAILY 11/07/18 Magnesium Oxide [Magnesium] 400 mg PO DAILY 11/07/18 gabapentin 600 mg tablet 600 mg PO TID 11/15/18 metoprolol succinate 100 mg tablet,extended release 24 hr 100 mg PO DAILY 11/15/18 nitroglycerin 0.4 mg sublingual tablet 0.4 mg SUBLINGUAL Q5-15M 11/15/18 pantoprazole 40 mg tablet,delayed release 40 mg PO BID 11/15/18 atorvastatin 40 mg tablet 40 mg PO QHS tab 02/09/19 potassium chloride 20 mEq tablet,extended release(part/cryst) 20 meq PO DAILY tab 02/09/19 Apixaban [Eliquis] 5 mg PO BID #60 tab 05/29/19 The following prescriptions were given: Apixaban [Eliquis] 5 mg PO BID #60 tab Transmission Status: Received by [facility] Primary Care Physician: Oral Manuel MD [Primary Care Provider] - Please follow up with your Primary Care Physician in: 1 Week Test Results: Test results from this visit will be discussed in further detail at your follow- up appointment, if applicable. Please Follow Up With: Boaz Gee MD - Neurology When: 1 Week Please Follow Up With: Oral Ramirez NP-C - Cardiology When: 1 Week Proposed Discharge Date: 05/29/19
--- NOTE | 2019-05-29 11:00 | CASEMGMT ---
This RN CM to room with LANG form at this time, explanation done-pt voices understanding, and pt signs LANG form at this time. Original to chart and copy to pt at this time. Pt also to be sent home on Eliquis at discharge and med already e-scribed to [facility] retail pharmacy. Per [facility] in [facility] pharmacy, 30 day free trial card applied so pt has no co-pay for this month but then states pt will have $47 co-pay after $125 deductible met. Pt updated at this time and states cannot afford the $47 co-pay/month at this time and states 'this is what happened before.' This RN CARLYN advised pt again that this month is free and that he would need to f/u with PCP in the next couple weeks and advise of cost and inability to pay to see what PCP would like pt to be placed on at that time, pt voices understanding. Alejandra FORKLIFT SUPERVISOR also updated on same, voices understanding. Pt encouraged to get PCP f/u appt in the next couple weeks, voices understanding. Pt voices no further questions/concerns/needs at this time. Pt states no concerns with going home at this time and pt states fiance will be the one picking him up. Per [facility] in [facility] retail pharmacy, pt/fiance will need to do curbside case picker to get the Eliquis at discharge, pt voices understanding. Stephen SALMERON CM
--- NOTE | 2019-05-29 11:03 | PCM.DC.SUM ---
<Pascale Martines - Last Filed: 05/29/19 11:25> Discharge Date and Diagnosis Date of Admission: 05/27/19 Date of Discharge: 05/29/19 - Primary Discharge Diagnosis Active and Suspected Problems (Last Updated 05/27/19 @ 17:[address] Natalia Finn MD) 1. TIA, CVA ruled out 2. Chronic dysphagia 3. CAD with history of CABG and stents 4. Ischemic cardiomyopathy status post ICD/pacemaker 5. Hypertension 6. Hyperlipidemia 7. Chronic COPD 8. LETTY 9. PVD with history of bypass 10. GERD 11. Left lower lobe 5 mm lung nodule-noted on chest CTA 12/12/2018. 12. History of paroxysmal atrial fibrillation - Secondary Discharge Diagnosis Chronic Problems (Last Updated 05/27/19 @ 17:[address] Natalia Finn MD) Atherosclerosis of coronary artery bypass graft of [place] heart with angina pectoris (Chronic) NSTEMI (non-ST elevated myocardial infarction) (Chronic 12/13/18) History of implantable cardiac defibrillator (ICD) (Chronic 09/15/17) History of coronary artery stent placement (Chronic 12/13/18) ROYCE-LCx and LAD 12/2006; PCI-ROYCE-Mid LAD w/ 3.0 x 28 mm Xience overlapped with a 3.5 x 18 mm Xience Stent 09/08/2010; PCI ROYCE-Mid LCx w/ 3.0 x 33 Xience and ROYCE-Mid LAD w/ 2.5 x 33 mm Xience Stent 10/02/2014; BOK-QRB-RPI-Mid-LCx w/ 2.5 x 38 mm Promus Synergy Stent and ROYCE-Distal LAD w/ 2.25 x 20 mm Promus Synergy Stent 12/13/18 Ischemic cardiomyopathy (Chronic) H/O coronary artery bypass surgery (Chronic 01/28/12) CABG x 3 LEHMAN-LAD, SVG-RPDA, SVG-LCx 01/28/2012 Nicotine dependence (Chronic) Essential (primary) hypertension (Chronic) HLD (hyperlipidemia) (Chronic) Abdominal aortic aneurysm (AAA) (Chronic) Peripheral vascular occlusive disease (Chronic) Right femoral-tibioperoneal bypass, femoral endarterectomy w/ bovine patch angioplasty, profundoplasty 12/28/18 COPD (chronic obstructive pulmonary disease) (Chronic) LETTY (obstructive sleep apnea) (Chronic) Left lower lobe pulmonary nodule (Chronic) Hospital Course and Treatment Imaging Results: Diagnostic Data Brain CT 05/27/19 15:40 IMPRESSION: Chronic sinusitis, otherwise negative unenhanced CT scan of the brain. Electronically Signed: Lola Conroy MD at 16:08 EDT Tel , Service support , ADDENDUM: 05/27/19 1617 IMPRESSION: Chronic sinusitis, otherwise negative unenhanced CT scan of the brain. N.B. : The above information has been verbally conveyed by Lola Conroy MD to Damien Lin MD, on 05/27/2019 16:10:14 (ET). Electronically Signed: Lola Conroy MD at 16:08 EDT Tel , Service support , Chest X-Ray 05/27/19 15:40 IMPRESSION: Normal x-ray examination of the chest. Electronically Signed: Lola Conroy MD at 16:17 EDT Tel , Service support , Head/Neck CTA 05/27/19 15:40 IMPRESSION: Normal CTA Head and neck with contrast. Electronically Signed: Lola Conroy MD at 16:55 EDT Tel , Service support , Tele-neurology Operations: None Procedures: None Summary of Care Provided: The patient is a 59 year old M admitted 05/27/2019 due to left facial droop and left arm and leg weakness. 1. TIA, stroke ruled out-brain CT unremarkable. Head and neck CTA unremarkable. Unable to obtain MRI due to ICD/pacemaker. Patient reports a history of more than 20 strokes in the past. He is already on aspirin, statin, Plavix. PT/OT/ST. Tele-neurology consult obtained who recommended anticoagulation due to patient report of paroxysmal atrial fibrillation and increased chadsvas2 score. Initiated on Eliquis 5 mg twice daily. First month is free. Following months would require $47 co-pay. Patient is not sure he can afford this and is hesitant to take Coumadin due to history of nosebleeds on Coumadin. Recommend further discussion with primary care and cardiology as outpatient. Patient counseled on increased risk of bleeding as he is on aspirin, Plavix and Eliquis. Patient to report any evidence of bleeding immediately to primary care provider. Follow-up with primary care and cardiology in 1 week. Recommend establishing it with neurology, Dr. Gee as well. 2. 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 Reportedly, during removal of the sternum he had an injury to his esophagus resulting in chronic dysphagia. No significant issues noted by speech therapy during admission. 3. CAD with history of CABG and stents-cardiac catheterization 12/13/2018 demonstrated severe triple-vessel disease involving the [place] left anterior descending artery with in-stent stenosis and high-grade distal disease, left circumflex artery with in-stent stenosis of 95% and totally occluded right coronary artery with totally occluded bypass grafts. Patient underwent PTCA/ROYCE to mid LCx and distal LAD. Continue aspirin, statin, Plavix, metoprolol, lisinopril. Patient follows with Dr. Albert. Metoprolol XL decreased to 50 mg daily due to hypotension. 4. Ischemic cardiomyopathy status post ICD/pacemaker-echocardiogram November 2018 demonstrated an EF of 35%. Pacemaker check 03/13/2019 with no significant arrhythmias. 5. Hypertension-stable, continue metoprolol, lisinopril, Lasix. 6. Hyperlipidemia- continue statin. 7. Chronic COPD-no exacerbation. Continue albuterol aerosol. 8. LETTY-continue BiPAP nightly. 9. PVD with history of bypass-continue aspirin, statin, Plavix. 10. GERD- continue PPI. 11. Left lower lobe 5 mm lung nodule-noted on chest CTA 12/12/2018. Patient is recommended to have repeat CT at 12 months following initial scan. 12. History paroxysmal atrial fibrillation-per patient report. Not noted on telemetry during admission or prior pacemaker interrogation. However given patient report of history and chadsvas2 score, initiated on anticoagulation as noted above. General: Alert, Oriented x3, Cooperative HEENT: Atraumatic, PERRLA, EOMI, Normocephalic Neck: Supple, No JVD, Negative Carotid Bruits Lungs: Clear to auscultation, Normal air movement Cardiovascular: Regular rate, No murmurs Abdomen: Bowel Sounds Present, Soft, Non Tender, Non-Distended Extremities: No clubbing, No cyanosis, No edema, Capillary Refill Less than 3 Seconds Skin: No rashes, No breakdown Musculoskeletal: No Tenderness to Palpation of Joints or Extremities Neurological: Cranial nerves II-XII grossly intact, Neuro grossly intact Psych/Mental Status: Normal Affect, Appropriate Patient seen and examined prior to discharge. Physical assessment as noted above. Patient is stable for discharge with follow up recommendations as noted above. This patient was seen by SOY Ramirez under the supervision of Dr. Deutsch. - Physical Exam Vitals/I&O's: Vital Signs Temp Pulse Resp BP Pulse Ox 98.0 F 75 16 119/83 H 96 05/29/19 07:59 05/29/19 09:40 05/29/19 07:59 05/29/19 07:59 05/29/19 09:03 Oxygen Delivery Method Room Air Weight: 179 lb 0.246 oz Body Mass Index (BMI) 28.0 Finger Stick Blood Glucose 101 Intake and Output for Last 24 Hours 05/27/19 05/28/19 05/29/19 23:59 23:59 23:59 Intake Total 480 / 480 1790 / 1790 250 / 250 Balance 480 / 480 1790 / 1790 250 / 250 Current Medications Albuterol Sulfate (Ventolin Aerosols) 2.5 mg INHALATION Q6H PRN PRN PRN Reason: Shortness of breath, wheezing Last Admin: 05/27/19 21:14 Dose: 2.5 mg Documented by: Amitriptyline HCl (Elavil) 25 mg PO QHS COUNTS INCLUDE 234 BEDS AT THE [facility] Last Admin: 05/28/19 21:41 Dose: 25 mg Documented by: Aspirin (Ecotrin) 81 mg PO DAILY@0800 COUNTS INCLUDE 234 BEDS AT THE [facility] Last Admin: 05/29/19 09:38 Dose: 81 mg Documented by: Atorvastatin Calcium (Lipitor) 80 mg PO QHS COUNTS INCLUDE 234 BEDS AT THE [facility] Last Admin: 05/28/19 21:44 Dose: 80 mg Documented by: Clopidogrel Bisulfate (Plavix) 75 mg PO DAILY COUNTS INCLUDE 234 BEDS AT THE [facility] Last Admin: 05/29/19 09:36 Dose: 75 mg Documented by: Enoxaparin Sodium (Lovenox) 40 mg SC DAILY COUNTS INCLUDE 234 BEDS AT THE [facility] Last Admin: 05/29/19 09:40 Dose: Not Given Documented by: Furosemide (Lasix) 40 mg PO DAILY@1200 COUNTS INCLUDE 234 BEDS AT THE [facility] Last Admin: 05/28/19 10:21 Dose: Not Given Documented by: Gabapentin (Neurontin) 600 mg PO TID COUNTS INCLUDE 234 BEDS AT THE [facility] Last Admin: 05/29/19 06:41 Dose: 600 mg Documented by: Gabapentin (Neurontin) 300 mg PO TIDCM COUNTS INCLUDE 234 BEDS AT THE [facility] Last Admin: 05/29/19 09:38 Dose: 300 mg Documented by: Sodium Chloride () 250 mls @ 15 mls/hr IV .[id number] PRN PRN Reason: Saline Flush Sodium Chloride () 250 mls @ 15 mls/hr IV .[id number] PRN PRN Reason: Additional IVPB Infusion Labetalol HCl (Trandate) 20 mg IV X1 PRN PRN Reason: BLOOD PRESSURE Lisinopril (Zestril) 5 mg PO DAILY@1800 COUNTS INCLUDE 234 BEDS AT THE [facility] Last Admin: 05/28/19 17:15 Dose: 5 mg Documented by: Metoprolol Succinate (Toprol Xl (Beta Shante)) 50 mg PO DAILY COUNTS INCLUDE 234 BEDS AT THE [facility] Last Admin: 05/29/19 09:40 Dose: 50 mg Documented by: Nutritional Formula (Lactose Free) (Ensure Enlive) 120 ml PO 4X/DAY COUNTS INCLUDE 234 BEDS AT THE [facility] Last Admin: 05/29/19 09:36 Dose: Not Given Documented by: Ondansetron HCl (Zofran) 4 mg IV Q8H PRN PRN PRN Reason: NAUSEA/VOMITING Pantoprazole Sodium (Protonix) 40 mg PO BID COUNTS INCLUDE 234 BEDS AT THE [facility] Last Admin: 05/29/19 09:38 Dose: 40 mg Documented by: Potassium Chloride (K-Dur) 20 meq PO DAILY COUNTS INCLUDE 234 BEDS AT THE [facility] Last Admin: 05/29/19 09:37 Dose: 20 meq Documented by: Senna/Docusate Sodium (Senokot-S, Janell-Colace) 2 tablet PO BID PRN PRN PRN Reason: Constipation Sodium Chloride () 10 - 40 ml IV UD PRN PRN Reason: SALINE FLUSH Zolpidem Tartrate (Ambien (Generic)) 5 mg PO QHS PRN PRN PRN Reason: INSOMNIA Discharge Diet: Low fat/ Low Cholesterol Discharge Activity: Return to Normal Activity Call your doctor if you observe: Numbness or Tingling, Shortness of breath, Dizziness, Fainting spells Home Medications: Medications to take at Discharge Alendronate Sodium 5 mg PO DAILY 11/07/18 Aspirin E.C. [Ecotrin] 81 mg PO DAILY@0800 11/07/18 Clopidogrel Bisulfate [Plavix] 75 mg PO DAILY 11/07/18 Furosemide [Lasix] 40 mg PO DAILY 11/07/18 Gabapentin [Neurontin] 300 mg PO TIDCM 11/07/18 Lisinopril 5 mg PO DAILY 11/07/18 Magnesium Oxide [Magnesium] 400 mg PO DAILY 11/07/18 gabapentin 600 mg tablet 600 mg PO TID 11/15/18 nitroglycerin 0.4 mg sublingual tablet 0.4 mg SUBLINGUAL Q5-15M 11/15/18 pantoprazole 40 mg tablet,delayed release 40 mg PO BID 11/15/18 atorvastatin 40 mg tablet 40 mg PO QHS tab 02/09/19 potassium chloride 20 mEq tablet,extended release(part/cryst) 20 meq PO DAILY tab 02/09/19 Amitriptyline HCl [Elavil] 25 mg PO QHS tab 05/29/19 Apixaban [Eliquis] 5 mg PO BID #60 tab 05/29/19 Metoprolol(XL)Succ [Toprol Xl (Beta Shante)] 50 mg PO DAILY #30 tab 05/29/19 Following Prescrptions Were Given to Patient: Apixaban [Eliquis] 5 mg PO BID #60 tab Transmission Status: Received by [facility] Metoprolol(XL)Succ [Toprol Xl (Beta Shante)] 50 mg PO DAILY #30 tab Transmission Status: Received by [facility] Primary Care Physician: Oral Manuel MD [Primary Care Provider] - Please follow up with your Primary Care Physician in: 1 Week Please Follow Up With: Boaz Gee MD - Neurology When: 1 Week Please Follow Up With: Oral Ramirez NP-C - Cardiology When: 1 Week Disposition: Home Minutes spent on discharge:: 35 Patient Condition:: Stable Medical Necessity - Tobacco Use Smoking Status: Current every day smoker Tobacco Use: Cigarettes Meaningful Use Info Meaningful Use Diagnoses (Choose all that apply): None applicable <Fawad Deutsch - Last Filed: 05/29/19 15:29> Discharge Date and Diagnosis - Secondary Discharge Diagnosis Chronic Problems (Last Updated 05/27/19 @ 17:[address] Natalia Finn MD) Atherosclerosis of coronary artery bypass graft of [place] heart with angina pectoris (Chronic) NSTEMI (non-ST elevated myocardial infarction) (Chronic 12/13/18) History of implantable cardiac defibrillator (ICD) (Chronic 09/15/17) History of coronary artery stent placement (Chronic 12/13/18) ROYCE-LCx and LAD 12/2006; PCI-ROYCE-Mid LAD w/ 3.0 x 28 mm Xience overlapped with a 3.5 x 18 mm Xience Stent 09/08/2010; PCI ROYCE-Mid LCx w/ 3.0 x 33 Xience and ROYCE-Mid LAD w/ 2.5 x 33 mm Xience Stent 10/02/2014; DVX-ZBA-EWV-Mid-LCx w/ 2.5 x 38 mm Promus Synergy Stent and ROYCE-Distal LAD w/ 2.25 x 20 mm Promus Synergy Stent 12/13/18 Ischemic cardiomyopathy (Chronic) H/O coronary artery bypass surgery (Chronic 01/28/12) CABG x 3 LEHMAN-LAD, SVG-RPDA, SVG-LCx 01/28/2012 Nicotine dependence (Chronic) Essential (primary) hypertension (Chronic) HLD (hyperlipidemia) (Chronic) Abdominal aortic aneurysm (AAA) (Chronic) Peripheral vascular occlusive disease (Chronic) Right femoral-tibioperoneal bypass, femoral endarterectomy w/ bovine patch angioplasty, profundoplasty 12/28/18 COPD (chronic obstructive pulmonary disease) (Chronic) LETTY (obstructive sleep apnea) (Chronic) Left lower lobe pulmonary nodule (Chronic) Hospital Course and Treatment Summary of Care Provided: This patient was seen in conjunction with MOISTURE TESTERPascale. I have independently interviewed and examined the patient and reviewed pertinent history, examination findings, laboratory and plan of management. I have reviewed the note and agree with the documented findings with the few additional points. In brief, patient is admitted for left-sided weakness which is resolved with working diagnosis of TIA. Patient cannot have MRI secondary to pacemaker. Head and neck CT unremarkable. PT, OT and speech evaluation. BP and glucose control as per stroke guidelines. Patient has multiple comorbidities including coronary artery disease, peripheral arterial disease of right lower extremity status post possible femoral-popliteal bypass surgery, CABG with postoperative complication of his sternal infection which required sternal removal and injury to esophagus during surgery and resultant chronic dysphagia. Patient is on appropriate medication as per coronary artery disease. Tele?neurology consult was done. Recommended starting on anticoagulant for history of paroxysmal A. fib and high chadsvas2 score. Patient had experience of nosebleeding long time ago on Coumadin. Started on Eliquis. Patient is on aspirin, Plavix, metoprolol, lisinopril and a statin. Chronic heart failure, ischemic in nature status post AICD: Echo of November 2018 reported as EF 35%. 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 Other comorbidities include hypertension dyslipidemia, COPD, obstructive sleep apnea on BiPAP, GERD, left: 5 mm lung nodule in November 2018: Patient recommended to have repeat CT at 12 months following scan. COPD stable. [] Discharge medication reconciliation done. Discharge follow-up instructions completed. Discharge process discussed with the patient and all questions were answered to patient's satisfaction. Total time spent, exact 35 minutes on discharge meds reconciliation, examination, coordination of care with nurses and ancillary staff, review of imaging and blood test and discussion with the patient on follow-up instructions I have discussed my assessment with MOISTURE TESTERPascale and orders have been reviewed. Subjective: Seen and examined. Patient left-sided weakness has improved. 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 Hypotension recovered. Abdomen: Bowel Sounds Present, Soft, Non Tender, Non-Distended Extremities: No edema, Capillary Refill Less than 3 Seconds Skin: No rashes, No breakdown Musculoskeletal: No Tenderness to Palpation of Joints or Extremities, Arthritic Changes Neurological: - Facial paralysis, 2 and mild to moderate sensory loss 1, total NIH stroke scale 3; which may be chronic/residual from previous stroke Psych/Mental Status: Normal Affect, Appropriate - Physical Exam Vitals/I&O's: Vital Signs Temp Pulse Resp BP Pulse Ox 98.0 F 75 16 119/83 H 96 04/13/20 07:59 05/29/19 09:40 05/29/19 07:59 05/29/19 07:59 05/29/19 09:03 Oxygen Delivery Method Room Air Weight: 179 lb 0.246 oz Body Mass Index (BMI) 28.0 Finger Stick Blood Glucose 101 Intake and Output for Last 24 Hours 05/27/19 05/28/19 05/29/19 23:59 23:59 23:59 Intake Total 480 / 480 1790 / 1790 250 / 250 Balance 480 / 480 1790 / 1790 250 / 250 Inpatient E&M: 12267 Disch Hosp
--- NOTE | 2019-05-29 12:00 | CASEMGMT ---
SW did not complete a PHQ 9 as patient did not have a Stroke or TIA. Jacqueline SZYMANSKI MSW
[2019-05-29] MEDS: Furosemide 40 MG Tablet PO (12:09)
== END 2019-05-29 10:57 | disposition home or self-care (01) ==
LOC: ED 17:34 → PCU 18:03
PROVIDERS: Admitting Provider Hospitalist; Emergency Provider Emergency Medicine; PCP Family Medicine; Visit Provider Internal Medicine
DX: G45.9 Transient cerebral ischemic attack, unspecified (principal); I48.0 Paroxysmal atrial fibrillation; I25.10 Atherosclerotic heart disease of native coronary artery without angina pectoris; I73.9 Peripheral vascular disease, unspecified; R20.0 Anesthesia of skin; R29.810 Facial weakness; R53.1 Weakness; F17.210 Nicotine dependence, cigarettes, uncomplicated; R29.703 NIHSS score 3; I45.10 Unspecified right bundle-branch block; E78.5 Hyperlipidemia, unspecified; G47.33 Obstructive sleep apnea (adult) (pediatric); J44.9 Chronic obstructive pulmonary disease, unspecified; M06.9 Rheumatoid arthritis, unspecified; K21.9 Gastro-esophageal reflux disease without esophagitis; F41.8 Other specified anxiety disorders; R13.10 Dysphagia, unspecified; R91.1 Solitary pulmonary nodule; I50.9 Heart failure, unspecified; I11.0 Hypertensive heart disease with heart failure; G89.4 Chronic pain syndrome; I25.2 Old myocardial infarction; I25.5 Ischemic cardiomyopathy; Z79.899 Other long term (current) drug therapy; Z79.82 Long term (current) use of aspirin; Z95.1 Presence of aortocoronary bypass graft; Z79.02 Long term (current) use of antithrombotics/antiplatelets; Z95.810 Presence of automatic (implantable) cardiac defibrillator; R94.31 Abnormal electrocardiogram [ECG] [EKG]
CPT/HCPCS: 36415; 70450; 70496; 70498; 71045; 80048; 80061; 84484; 85025; 85610; 85730; 92523; 93005; 94640; 94762; 97110; 97116; 97162; 97166; 97530; 99218; 99251; 99285; 99406; J7030; Q9967; A4216; G0378; G0463

== ENCOUNTER → 2019-07-21 20:08 | Outpatient (CLI) | payer MEDICARE, SELFPAY ==
[2018-12-13 11:07] VITALS: BMI 26.3
[2019-07-12 10:42] VITALS: BMI 28.0
== END ==
PROVIDERS: PCP Family Medicine; Referring Provider Internal Medicine Critical Care Medicine; Visit Provider Internal Medicine Critical Care Medicine
DX: G47.33 Obstructive sleep apnea (adult) (pediatric) (principal)
CPT/HCPCS: 95810

== ENCOUNTER → 2019-07-24 | Outpatient (CLI) | payer MEDICARE, SELFPAY ==
[2018-12-13 11:07] VITALS: BMI 26.3
[2019-07-12 10:42] VITALS: BMI 28.0
[2019-07-24 12:41] LABS: Vitamin B12 350 pg/mL (211-911)
== END | disposition home or self-care (01) ==
LOC: MFPLAB 09:56
PROVIDERS: PCP Family Medicine; Visit Provider Family Medicine
DX: M79.2 Neuralgia and neuritis, unspecified (principal)
CPT/HCPCS: 36415; 82607

== ENCOUNTER → 2019-07-29 09:19 | Outpatient (CLI) | payer MEDICARE, SELFPAY ==
[2018-12-13 11:07] VITALS: BMI 26.3
[2019-07-12 10:42] VITALS: BMI 28.0
[2019-07-29 10:35] LABS: Anion Gap 7 (5-15); BUN 21 mg/dL (7-18); Calcium,Total 9.1 mg/dL (8.5-10.1); Chloride 100 mmol/L (98-107); EST Glomerular Filtration Rate 51 mL/min (>60); Est Glom Filt Rate - Afr Amer 62 mL/min (>60); Glucose 116 mg/dL (74-106); Magnesium 2.4 mg/dL (1.6-2.6); Potassium 4.2 mmol/L (3.5-5.1); Sodium Level 136 mmol/L (136-145)
[2019-07-29 10:37] LABS: BNP,B-Type NATRIURETIC PEPTIDE 43.7 pg/mL (0-100)
== END ==
PROVIDERS: PCP Family Medicine; Referring Provider Nurse Practitioner Family; Visit Provider Nurse Practitioner Family
DX: R06.00 Dyspnea, unspecified (principal); I25.5 Ischemic cardiomyopathy; I25.709 Atherosclerosis of coronary artery bypass graft(s), unspecified, with unspecified angina pectoris; Z95.1 Presence of aortocoronary bypass graft
CPT/HCPCS: 36415; 80048; 83735; 83880

== ENCOUNTER → 2019-08-15 09:22 | Outpatient (CLI) | payer MEDICARE, SELFPAY ==
[2018-12-13 11:07] VITALS: BMI 26.3
[2019-07-12 10:42] VITALS: BMI 28.0
--- NOTE | 2019-08-15 09:26 | RAD_ITS ---
STUDY: X-RAY CHEST REASON FOR EXAM: Male, 59 years old. CHEST PAIN, PACER PLACEMENT EVALUATION TECHNIQUE: PA and lateral views of the chest. COMPARISON: 05/27/2019 FINDINGS: Left subclavian dual-lead pacemaker which is unchanged. The lungs are clear and expanded. There is no demonstrated pleural abnormality. Normal size heart. Normal mediastinum and jovanni. Normal visualized pulmonary arteries. Normal visualized aortic arch and descending thoracic aorta. Normal visualized thoracic spine. Normal visualized ribs, clavicles, and shoulders. There is no demonstrated abnormality of the visualized soft tissue structures of the upper abdomen. RAD/Chest PA and Lateral IMPRESSION: No change from 05/27/2019. Electronically Signed: Jorge Stephens MD at 9:54 EDT Tel , Service support ,
== END ==
PROVIDERS: PCP Family Medicine; Referring Provider Nurse Practitioner Family; Visit Provider Nurse Practitioner Family
DX: R07.9 Chest pain, unspecified (principal); I25.5 Ischemic cardiomyopathy; I25.709 Atherosclerosis of coronary artery bypass graft(s), unspecified, with unspecified angina pectoris; Z95.1 Presence of aortocoronary bypass graft; Z95.5 Presence of coronary angioplasty implant and graft
CPT/HCPCS: 71046

== ENCOUNTER → 2019-08-16 06:41 | Outpatient (CLI) | payer MEDICARE, SELFPAY ==
[2018-12-13 11:07] VITALS: BMI 26.3
[2019-07-12 10:42] VITALS: BMI 28.0
--- NOTE | 2019-08-16 09:06 | STRESSREP_ITS ---
Stress Test Report Pharmacologic myocardial perfusion stress test. 59-year-old man with a history of previous inferior myocardial infarction previous bypass surgery stenting of the circumflex artery. Stress protocol: Resting EKG demonstrates normal sinus rhythm with a rate of 63 bpm right bundle branch block is noted resting blood pressure is 126/74 mmHg. 0.4 mg of regadenoson was infused per usual protocol followed Intravenous saline flush injection continuous EKG monitoring was performed. Maximum heart rate attained was 93 bpm which was 57% of maximum predicted heart rate the maximum workload was 1 metabolic equivalent. At rest there were no ST or T wave changes noted to suggest abnormal flow reserve at peak infusion nonspecific ST-T wave changes were noted. The resting blood pressure was 126/74 with a final blood pressure 116/66. Myocardial perfusion protocol. 11.9 mCi of technetium 99m sestamibi was injected at rest. 0.4 mg of regad enoson was infused per usual protocol. At peak infusion 36.0 mCi of technetium 99m sestamibi was injected stress images were obtained stress and rest images were reconstructed and compared in the short axis vertical long horizontal long axis. Gated images were also obtained Perfusion SPECT analysis: Review of the stress images demonstrate an extensive area of infarct and perfusion defect involving the mid to distal anterior wall and apex. The resting images demonstrate a similar pattern. There is a medium size defect noted in the mid inferior septal wall which is also present on the resting images. The above is suggestive of a previous extensive anterior apical infarct with no ischemia as well as a small to medium size inferior septal infarct with no ischemia. The rest of the low appear to be well perfused. Gated SPECT analysis: The gated ejection fraction is 41%. Conclusion: Mild cardiomyopathy. Previous anterior and apical infarct. Previous small to medium inferoseptal infarct. No ischemia noted.
== END ==
PROVIDERS: PCP Family Medicine; Referring Provider Nurse Practitioner Family; Visit Provider Nurse Practitioner Family
DX: R07.9 Chest pain, unspecified (principal); I25.709 Atherosclerosis of coronary artery bypass graft(s), unspecified, with unspecified angina pectoris; I25.5 Ischemic cardiomyopathy; Z95.1 Presence of aortocoronary bypass graft; Z95.5 Presence of coronary angioplasty implant and graft
CPT/HCPCS: 78452; 93017; A9500; A4216; J2785

== ENCOUNTER → 2019-09-04 20:00 | Outpatient (CLI) | payer MEDICARE, SELFPAY ==
[2018-12-13 11:07] VITALS: BMI 26.3
[2019-07-12 10:42] VITALS: BMI 28.0
== END ==
PROVIDERS: PCP Family Medicine; Visit Provider Internal Medicine Critical Care Medicine
DX: G47.33 Obstructive sleep apnea (adult) (pediatric) (principal)
CPT/HCPCS: 95811

== ENCOUNTER → 2019-09-05 06:04 | Outpatient (CLI) | payer MEDICARE, SELFPAY ==
[2018-12-13 11:07] VITALS: BMI 26.3
[2019-07-12 10:42] VITALS: BMI 28.0
[2019-08-17 12:27] VITALS: BMI 28.0
--- NOTE | 2019-09-05 08:57 | PFTCOMP ---
COMPLETE PULMONARY FUNCTION TEST INTERPRETATION Brief HPI: Patient is a 59 year old male, currently under the care of myself, who presents to [facility] for complete pulmonary function tests secondary to diagnosis of dyspnea. Respiratory therapist reports good effort and reproducible results. Interpretation: Forced expiration spirometry shows no large airways obstructive ventilatory defect with an FEV1 of 87% predicted. There is no significant bronchodilator response by strict ATS criteria. Spirograms are of good quality and plateau slowly, indicating slowly emptying areas of the lungs. The respiratory flow volume loop shows decreased expiratory flow rates at high lung volumes consistent with small airways obstruction. Lung volumes by body plethysmography show a normal total lung capacity at 5.92 L, 99% predicted. All other lung volumes are within normal limits. Diffusion capacity by carbon monoxide is normal at 81% predicted. The airway resistance is normal. No previous pulmonary function tests were available for review. Impression: Grossly normal pulmonary function test with some mild stigmata of possible small airways obstruction
== END ==
PROVIDERS: PCP Family Medicine; Referring Provider Internal Medicine Critical Care Medicine; Visit Provider Internal Medicine Critical Care Medicine
DX: G47.10 Hypersomnia, unspecified (principal); R06.00 Dyspnea, unspecified
CPT/HCPCS: 94060; 94726; 94729

== ENCOUNTER → 2019-09-18 10:28 | Outpatient (CLI) | payer MEDICARE, SELFPAY ==
[2018-12-13 11:07] VITALS: BMI 26.3
[2019-07-12 10:42] VITALS: BMI 28.0
[2019-08-17 12:27] VITALS: BMI 28.0
[2019-09-18 11:02] VITALS: PULSE 83; PULSE 86; PULSE 87; PULSE 89; PULSE 90; PULSE 92; PULSE 93; O2SAT 93; O2SAT 94; O2SAT 95; O2SAT 96
--- NOTE | 2019-09-18 14:37 | PCM.PSN.6M ---
PSN 6 Minute Walk Test - 6 Minute Walk Test 6 Minute Walk Test: 6 Minute Walk Test PSN:6-Minute Walk Test Start: 09/18/19 11:01 Freq: Status: Active Protocol: RESP.6MINW Document 09/18/19 11:02 JUDITH (Rec: 09/18/19 11:04 JUDITH [id number]) 6 Minute Walk Test Date Performed 09/18/19 Time Performed 10:30 Height 5 ft 7 in Weight: 81.647 kg Weight in Pounds 180.[address]: Darinel Mcallister Assistive device used: None Pre-test Oxygen Delivery Method Room Air Pulse Ox (%) 95 Pulse Rate (60-100 beats/min) 83 Dyspnea Toyin Scale (0-10) 0.5 Exertion [place] Scale (6-20) 6 1st minute Oxygen Delivery Method Room Air Pulse Ox (%) 96 Pulse Rate (60-100 beats/min) 89 2nd minute Oxygen Delivery Method Room Air Pulse Ox (%) 93 Pulse Rate (60-100 beats/min) 83 3rd minute Oxygen Delivery Method Room Air Pulse Ox (%) 94 Pulse Rate (60-100 beats/min) 86 4th minute Oxygen Delivery Method Room Air Pulse Ox (%) 96 Pulse Rate (60-100 beats/min) 90 5th minute Oxygen Delivery Method Room Air Pulse Ox (%) 95 Pulse Rate (60-100 beats/min) 92 6th minute Oxygen Delivery Method Room Air Pulse Ox (%) 95 Pulse Rate (60-100 beats/min) 93 Dyspnea [place] Scale (0-10) 2 Exertion Toyin Scale (6-20) 13 Post-test Oxygen Delivery Method Room Air Pulse Ox (%) 96 Pulse Rate (60-100 beats/min) 87 Full Laps Walked 12 Partial Lap, Number of Tiles Walked 32 Total Distance Walked (ft) 740 - Interpretation Interpretation: The patient was able to ambulate 740 feet over the course of 6 minutes on room air with no assistive devices or breaks. The patient had an oxygen gigi of 93 and a peak heart rate of 93. These findings are consistent with a musculoskeletal limitation exercise tolerance. - Recommendations Recommendations: No supplemental oxygen is indicated at this time.
== END ==
PROVIDERS: PCP Family Medicine; Referring Provider Internal Medicine Critical Care Medicine; Visit Provider Internal Medicine Critical Care Medicine
DX: R06.00 Dyspnea, unspecified (principal); G47.10 Hypersomnia, unspecified
CPT/HCPCS: 94618

== ENCOUNTER 2019-10-20 23:23 | Inpatient (IN) | payer MEDICARE, SELFPAY ==
[2018-12-13 11:07] VITALS: BMI 26.3
[2019-10-17 09:59] VITALS: BMI 29.6
[2019-10-20 23:24] VITALS: BP 126/82; PULSE 100; PULSE 104; RESP 19; RESP 23; TEMP 36.6; O2SAT 93; O2SAT 94; BMI 30.4
--- NOTE | 2019-10-20 23:27 | EKG12_ITS ---
Test Reason : CP Blood Pressure : / mmHG Vent. Rate : 097 BPM Atrial Rate : 097 BPM P-R Int : 168 ms QRS Dur : 136 ms QT Int : 382 ms P-R-T Axes : 041 111 058 degrees QTc Int : 485 ms Normal sinus rhythm Right bundle branch block Cannot rule out Inferior infarct (cited on or before 12-DEC-2018) Anterolateral infarct (cited on or before 12-DEC-2018) Abnormal ECG Confirmed by RADHA SMART, ALISON ([id number]), editor news ABDOULAYE JENKINS ([id number]) on 10/25/2019 10:08:38 AM Referred By: Virgil Orantes Confirmed By:ALISON GARCIA MD
--- NOTE | 2019-10-20 23:29 | RAD_ITS ---
STUDY: X-RAY CHEST REASON FOR EXAM: Male, 59 years old. CHEST PAIN, LEFT ARM PAIN TECHNIQUE: 1 view COMPARISON: Prior chest radiograph of 08/15/2019 FINDINGS: The lungs are clear and expanded. There is no demonstrated pleural abnormality. Stable cardiac size. Right atrial pacemaker lead and right ventricular defibrillator lead remain in good position. Coronary artery stent calcifications on the left. Normal mediastinum and jovanni. Normal visualized pulmonary arteries. There is atherosclerotic tortuosity of the aortic arch and descending thoracic aorta. Normal visualized thoracic spine. Normal visualized ribs, clavicles, and shoulders. There is no demonstrated abnormality of the visualized soft tissue structures of the upper abdomen. RAD/Chest 1 View (Portable) IMPRESSION: No acute cardiopulmonary findings or changes. Negative for new consolidation, focal atelectasis or a substantial pleural effusion. Normal cardiac size. ICD remains in good position. Electronically Signed: Malini Dejesus MD at 23:48 EDT , Service support ,
[2019-10-20 23:32] VITALS: BP 126/82; PULSE 103
[2019-10-20] MEDS: Nitroglycerin SL (ED/IMG/CATH) 0.4 MG TABLET SUBLINGUAL ×2 (23:32→23:38)
[2019-10-20 23:33] LABS: Absolute Lymphocyte Count 2.23 X10^3/uL (0.83-4.51); Absolute Neutrophil Count 2.8 X10^3/uL (2.0-7.7); Basophil# 0.11 X10^3/uL; Basophil% 1.9 % (0-1); Eosinophils% 6.7 % (0-5); Hemoglobin 16.6 g/dL (13.0-16.5); Lymphocyte # 2.23 X10^3/ul (4.0); Lymphocyte % 37.5 % (19-41); Mean Corp Hgb Conc 33.9 g/dL (32-36); Mean Corpuscular Hgb 30.3 pg (27.0-32.0); Mean Corpuscular Volume 89.6 fL (80-94); Mean Platelet Vol. 9.5 fl (6.2-12.0); Monocyte# 0.34 X10^3/uL; Monocyte% 5.7 % (0-10); NRBC Flagged by Analyzer 0 % (0-5); Neutrophil # 2.82 X10^3/uL (2.7-7.7); Neutrophil % 47.5 % (47-70); Platelet Count 166 K/mm3 (150-450); RBC Distribution Width CV 14.7 % (11.6-14.6); RBC Distribution Width SD 48.5 fl (35.1-43.9); Red Blood Count 5.47 M/mm3 (4.6-6.2); White Blood Count 5.9 K/mm3 (4.4-11.0)
[2019-10-20 23:38] VITALS: BP 112/69; PULSE 111
[2019-10-20 23:40] VITALS: O2SAT 93
--- NOTE | 2019-10-20 23:45 | ED.DCSUM_ITS ---
- ER Visit Summary Date of Service: 10/20/19 Chief Complaint: Chest pain History of Present Illness: The patient is a 59 M presenting with chest pain. Patient states this started 1 hour prior to arrival. He complains of midsternal chest pressure, 10/10. He has radiation to his left arm. He has associated diaphoresis and shortness of breath. He denies nausea or vomiting. Denies recent fever or cough. Denies known exposure to COVID. He has history of hypertension, hypercholesterolemia, coronary artery disease, cardiomyopathy. He has had previous stents and CABG. He is on Plavix. He also has history of GERD. He is a smoker. Physical Examination: Vitals are stable. Patient is afebrile. Alert no acute distress. HEENT exam is unremarkable. Neck is supple. Lungs are clear and equal bilaterally. Heart is regular rate and rhythm. Abdomen is soft nontender nondistended. Extremities are unremarkable. Skin is warm and dry. No focal neurologic deficit. Remainder of exam is unremarkable. Emergency Department Course and Treatment: Patient was given aspirin on arrival. EKG is sinus rhythm, right bundle branch block, similar to previous. Chest x- ray shows no acute cardiopulmonary findings or changes. Negative for new con solidation, focal atelectasis or a substantial pleural effusion. Normal cardiac size. ICD remains in good position. Patient was given nitro x2 with no improvement. He was then given Dilaudid, Zofran. On re-evaluation, he is chest pain free. Discussed with the hospitalist for observation. Disposition: Observation Impression: Chest pain This note was generated with [employer] dictation software. It may contain incorrect words, spelling, and punctuation that were not noted in review of the chart prior to signing ED Disposition - Plan for ED Patient: Referrals: Oral Manuel MD [Primary Care Provider] -
[2019-10-20 23:51] LABS: Anion Gap 6 (5-15); BUN 20 mg/dL (7-18); BUN/Creat Ratio 16.7 RATIO (10-20); Calcium,Total 8.9 mg/dL (8.5-10.1); Chloride 102 mmol/L (98-107); EST Glomerular Filtration Rate 66 mL/min (>60); Est Glom Filt Rate - Afr Amer 80 mL/min (>60); Glucose 137 mg/dL (74-106); Potassium 3.9 mmol/L (3.5-5.1); Sodium Level 136 mmol/L (136-145)
[2019-10-20] MEDS: Ondansetron 4 MG/2 ML Vial IV (23:52)
[2019-10-20 23:54] VITALS: BP 97/72; PULSE 105; RESP 14; O2SAT 97
[2019-10-20] MEDS: HYDROmorphone 1 MG/ML Syringe IV (23:55)
[2019-10-21] VITALS (16 sets, daily range): BP systolic 98–111; BP diastolic 62–75; PULSE 71–94; RESP 16–18; TEMP 36.1–36.6; O2SAT 93–97; BMI 29.6; BMI 29.7
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
--- NOTE | 2019-10-21 01:19 | EKG12_ITS ---
Test Reason : PO Blood Pressure : / mmHG Vent. Rate : 071 BPM Atrial Rate : 071 BPM P-R Int : 170 ms QRS Dur : 140 ms QT Int : 434 ms P-R-T Axes : 045 108 075 degrees QTc Int : 471 ms Normal sinus rhythm Right bundle branch block Anterolateral infarct , age undetermined Abnormal ECG When compared with ECG of 21-OCT-2019 01:30, MANUAL COMPARISON REQUIRED, DATA IS UNCONFIRMED Confirmed by JULIO SMART, TABATHA ([id number]), associate editor ABDOULAYE JENKINS ([id number]) on 10/26/2019 9:42:29 AM Referred By: Virgil Orantes Confirmed By:TABATHA KIM MD
[2019-10-21] MEDS: Morphine 2 MG/ML Syringe IV ×8 (01:52→22:15)
[2019-10-21] MEDS: 0.9% Saline Lock 10 ML Syringe IV ×7 (01:53→22:16)
[2019-10-21 07:50] LABS: Cholesterol 132 mg/dL (200); High Density Lipoprotein 22 mg/dL; Triglycerides 328 mg/dL; Very Low Density Lipoprotein 66 mg/dL (5-40)
[2019-10-21] MEDS: Aspirin E.C. 81 MG Tablet PO (08:50)
[2019-10-21] MEDS: Gabapentin 300 MG Capsule 900 MG PO ×3 (08:50→17:10)
[2019-10-21] MEDS: Furosemide 40 MG Tablet PO (10:50)
[2019-10-21] MEDS: amLODIPine 5 MG Tablet PO (10:50)
[2019-10-21] MEDS: Magnesium Chloride 64 MG Delay Rel.Tablet PO (10:50)
[2019-10-21] MEDS: Pantoprazole Sodium 40 MG Tablet PO ×2 (10:50→22:14)
[2019-10-21] MEDS: Metoprolol(XL)Succ 50 MG Tablet PO (10:50)
[2019-10-21] MEDS: Isosorbide Mononitrate 30 MG Tablet PO (10:50)
[2019-10-21] MEDS: Enoxaparin 40 MG/0.4 ML Syringe SC ×2 (10:51→14:53)
[2019-10-21] MEDS: Clopidogrel Bisulfate 75 MG Tablet PO (10:52)
--- NOTE | 2019-10-21 13:01 | PN_ITS ---
<Kevin Baeza - Last Filed: 10/21/19 13:01> Patient Problems: Active and Suspected Problems (Last Reviewed 10/21/19 @ 01:[address] Virgil Orantes MD) Chest pain (Acute) Reason for Visit: Chest pain. Subjective: Ongoing chest pain with minimal relief overnight. Patient took 2 doses of nitro and had no relief of chest pain, he then developed a severe headache. Chest pain is ongoing. He states it feels like a semitruck is sitting on his chest. He occasionally has associated bouts of sweating heavily. He has associated shortness of breath. He has pain in his left shoulder as well. He has no nausea or vomiting. Mild right lower extremity edema that he relates to his bypass surgery in his right leg for PAD. Vitals/I&O's: Vital Signs Temp Pulse Resp BP Pulse Ox 97.0 F L 88 16 105/62 94 10/21/19 08:38 10/21/19 10:50 10/21/19 08:38 10/21/19 08:38 10/21/19 08:38 Oxygen Flow Rate (L/min) 2 Oxygen Delivery Method Room Air Weight: 189 lb 6.033 oz Body Mass Index (BMI) 29.6 Finger Stick Blood Glucose 101 General: Alert, Oriented x3, Cooperative HEENT: Atraumatic, PERRLA, EOMI, Normocephalic Neck: Supple, No JVD, Negative Carotid Bruits Lungs: Clear to auscultation, Normal air movement Cardiovascular: Regular rate, No murmurs Abdomen: Bowel Sounds Present, Soft, Non Tender Extremities: No edema, Capillary Refill Less than 3 Seconds Skin: No rashes, No breakdown Musculoskeletal: No Tenderness to Palpation of Joints or Extremities Neurological: Cranial nerves II-XII grossly intact Psych/Mental Status: Normal Affect, Appropriate, Alert and oriented to time, place, person, mood and affect Laboratory Results 10/20/19 23:25: WBC 5.9, RBC 5.47, Hgb 16.6 H, Hct 49.0, MCV 89.6, MCH 30.3, MCHC 33.9, RDW Std Deviation 48.5 H, RDW Coeff of Jack 14.7 H, Plt Count 166, MPV 9.5, Immature Gran % (Auto) 0.700, Neut % (Auto) 47.5, Lymph % (Auto) 37.5, [place] % (Auto) 5.7, Eos % (Auto) 6.7 H, Baso % (Auto) 1.9 H, Absolute Neuts (auto) 2.8, Absolute Lymphs (auto) 2.23, Nucleated RBC % 0 10/20/19 23:25: Sodium 136, Potassium 3.9, Chloride 102, Carbon Dioxide 28.0, Anion Gap 6, BUN 20 H, Creatinine 1.20, Estim Creat Clear Calc 63.50, Est GFR (MDRD) Af Amer 80, Est GFR (MDRD) Non-Af 66, BUN/Creatinine Ratio 16.7, Glucose 137 H, Calcium 8.9, Troponin I < 0.015 10/21/19 02:35: Troponin I 0.551 H 10/21/19 06:10: Troponin I 1.110 H*, Triglycerides 328 H, Cholesterol 132, LDL Cholesterol 44, VLDL Cholesterol 66 H, HDL Cholesterol 22 L Current Medications Acetaminophen (Tylenol) 650 mg PO Q6H PRN PRN PRN Reason: Pain Score 1-10/Temp > 100.7 F Albuterol Sulfate (Ventolin Aerosols) 2.5 mg INHALATION Q2H PRN PRN PRN Reason: SOB/WHEEZING Amitriptyline HCl (Elavil) 25 mg PO DAILY@2200 [facility] Amlodipine Besylate (Norvasc) 5 mg PO DAILY [facility] Last Admin: 10/21/19 10:50 Dose: 5 mg Documented by: Aspirin (Ecotrin) 81 mg PO DAILY@0800 [facility] Last Admin: 10/21/19 08:50 Dose: 81 mg Documented by: Atorvastatin Calcium (Lipitor) 80 mg PO QHS [facility] Clopidogrel Bisulfate (Plavix) 75 mg PO DAILY [facility] Last Admin: 10/21/19 10:52 Dose: 75 mg Documented by: Enoxaparin Sodium (Lovenox) 40 mg SC DAILY [facility] Last Admin: 10/21/19 10:51 Dose: 40 mg Documented by: Furosemide (Lasix) 40 mg PO DAILY [facility] Last Admin: 10/21/19 10:50 Dose: 40 mg Documented by: Gabapentin (Neurontin) 900 mg PO TIDCM [facility] Last Admin: 10/21/19 12:30 Dose: 900 mg Documented by: Isosorbide Mononitrate (Imdur) 30 mg PO QAM [facility] Last Admin: 10/21/19 10:50 Dose: 30 mg Documented by: Lisinopril (Zestril) 5 mg PO DAILY [facility] Last Admin: 10/21/19 11:40 Dose: Not Given Documented by: Lisinopril (Zestril) 5 mg PO QHS [facility] Magnesium Chloride (Mag64) 64 mg PO DAILY [facility] Last Admin: 10/21/19 10:50 Dose: 64 mg Documented by: Metoprolol Succinate (Toprol Xl (Beta Shante)) 50 mg PO DAILY [facility] Last Admin: 10/21/19 10:50 Dose: 50 mg Documented by: Morphine Sulfate () 2 mg IV Q2H PRN PRN PRN Reason: Pain Score 6-10/10 Last Admin: 10/21/19 12:29 Dose: 2 mg Documented by: Ondansetron HCl (Zofran) 4 mg IV Q8H PRN PRN PRN Reason: NAUSEA/VOMITING Pantoprazole Sodium (Protonix) 40 mg PO BID [facility] Last Admin: 10/21/19 10:50 Dose: 40 mg Documented by: Potassium Chloride (K-Dur) [facility] meq [facility] Last Admin: 10/21/19 08:51 Dose: 20 meq Documented by: Senna/Docusate Sodium (Senokot-S, Janell-Colace) 2 tablet PO BID PRN PRN PRN Reason: Constipation Sodium Chloride () 10 - 40 ml IV UD PRN PRN Reason: SALINE FLUSH Last Admin: 10/21/19 12:30 Dose: 10 ml Documented by: Spironolactone (Aldactone) 25 mg PO DAILY@1700 [facility] STR[facility] Vital Signs/Narrative: Vital Signs Pulse 10/21/19 10:50 88 Medical Necessity - Tobacco Use Smoking Status: Current every day smoker Tobacco Use: Cigarettes Assessment/Plan All Active Problems (Last Reviewed 10/21/19 @ 01:[address] Virgil Orantes MD) Chest pain (Acute) 1. [id number] chest pain, elevated troponin at 1.110. Cardiology consulted. No relief with nitro. Patient has a significant history of CAD stating that he has had a 28 myocardial infarctions in the past. He has had a CABG x3, also has a pacemaker and defibrillator in place. Patient states his last heart cath was here, it appears that it was November 2018-this demonstrated severe triple-vessel disease and he had intervention that [id number] stent to the distal LAD. Patient's regimen currently includes aspirin, Norvasc, statin, Plavix, Zestril, metoprolol, imdur, Lasix/aldactone. 2. Ichemic CM - last echo 12/03 with EF 35%. AICD in place. Continue home diuretics. Mild RLE edema. 3. PAD - 12/2018 bypass to the RLE per [facility]. Continue norvasc. 4. LETTY - cpap qhs 5. Hx sternotomy - following CABG and associated infection. DVT ppx: lovenox This patient was seen by Kevin Baeza PA-C under the supervision of Doctor Soy. <Martine Olivier - Last Filed: 10/21/19 14:17> Vitals/I&O's: Vital Signs Temp Pulse Resp BP Pulse Ox 97.0 F L 88 16 105/62 94 10/21/19 08:38 10/21/19 10:50 10/21/19 08:38 10/21/19 08:38 10/21/19 08:38 Oxygen Flow Rate (L/min) 2 Oxygen Delivery Method Room Air Weight: 85.9 kg Body Mass Index (BMI) 29.6 Finger Stick Blood Glucose 101 Laboratory Results 10/20/19 23:25: WBC 5.9, RBC 5.47, Hgb 16.6 H, Hct 49.0, MCV 89.6, MCH 30.3, MCHC 33.9, RDW Std Deviation 48.5 H, RDW Coeff of Jack 14.7 H, Plt Count 166, MPV 9.5, Immature Gran % (Auto) 0.700, Neut % (Auto) 47.5, Lymph % (Auto) 37.5, [place] % (Auto) 5.7, Eos % (Auto) 6.7 H, Baso % (Auto) 1.9 H, Absolute Neuts (auto) 2.8, Absolute Lymphs (auto) 2.23, Nucleated RBC % 0 10/20/19 23:25: Sodium 136, Potassium 3.9, Chloride 102, Carbon Dioxide 28.0, Anion Gap 6, BUN 20 H, Creatinine 1.20, Estim Creat Clear Calc 63.50, Est GFR (MDRD) Af Amer 80, Est GFR (MDRD) Non-Af 66, BUN/Creatinine Ratio 16.7, Glucose 137 H, Calcium 8.9, Troponin I < 0.015 10/21/19 02:35: Troponin I 0.551 H 10/21/19 06:10: Troponin I 1.110 H*, Triglycerides 328 H, Cholesterol 132, LDL Cholesterol 44, VLDL Cholesterol 66 H, HDL Cholesterol 22 L Current Medications Acetaminophen (Tylenol) 650 mg PO Q6H PRN PRN PRN Reason: Pain Score 1-10/Temp > 100.7 F Albuterol Sulfate (Ventolin Aerosols) 2.5 mg INHALATION Q2H PRN PRN PRN Reason: SOB/WHEEZING Amitriptyline HCl (Elavil) 25 mg PO DAILY@2200 [facility] Amlodipine Besylate (Norvasc) 5 mg PO DAILY [facility] Last Admin: 10/21/19 10:50 Dose: 5 mg Documented by: Aspirin (Ecotrin) 81 mg PO DAILY@0800 [facility] Last Admin: 10/21/19 08:50 Dose: 81 mg Documented by: Atorvastatin Calcium (Lipitor) 80 mg PO QHS [facility] Clopidogrel Bisulfate (Plavix) 75 mg PO DAILY [facility] Last Admin: 10/21/19 10:52 Dose: 75 mg Documented by: Enoxaparin Sodium (Lovenox) 40 mg SC DAILY [facility] Last Admin: 10/21/19 10:51 Dose: 40 mg Documented by: Furosemide (Lasix) 40 mg PO DAILY [facility] Last Admin: 10/21/19 10:50 Dose: 40 mg Documented by: Gabapentin (Neurontin) 900 mg PO TIDCM [facility] Last Admin: 10/21/19 12:30 Dose: 900 mg Documented by: Isosorbide Mononitrate (Imdur) 30 mg PO QAM [facility] Last Admin: 10/21/19 10:50 Dose: 30 mg Documented by: Lisinopril (Zestril) 5 mg PO DAILY [facility] Last Admin: 10/21/19 11:40 Dose: Not Given Documented by: Lisinopril (Zestril) 5 mg PO QHS [facility] Magnesium Chloride (Mag64) 64 mg PO DAILY [facility] Last Admin: 10/21/19 10:50 Dose: 64 mg Documented by: Metoprolol Succinate (Toprol Xl (Beta Shante)) 50 mg PO DAILY [facility] Last Admin: 10/21/19 10:50 Dose: 50 mg Documented by: Morphine Sulfate () 2 mg IV Q2H PRN PRN PRN Reason: Pain Score 6-10/10 Last Admin: 10/21/19 12:29 Dose: 2 mg Documented by: Ondansetron HCl (Zofran) 4 mg IV Q8H PRN PRN PRN Reason: NAUSEA/VOMITING Pantoprazole Sodium (Protonix) 40 mg PO BID [facility] Last Admin: 10/21/19 10:50 Dose: 40 mg Documented by: Potassium Chloride (K-Dur) 20 meq PO DAILYCM [facility] Last Admin: 10/21/19 08:51 Dose: 20 meq Documented by: Senna/Docusate Sodium (Senokot-S, Janell-Colace) 2 tablet PO BID PRN PRN PRN Reason: Constipation Sodium Chloride () 10 - 40 ml IV UD PRN PRN Reason: SALINE FLUSH Last Admin: 10/21/19 12:30 Dose: 10 ml Documented by: Spironolactone (Aldactone) 25 mg PO DAILY@1700 [facility] Vital Signs/Narrative: Vital Signs Pulse 10/21/19 10:50 88 Assessment/Plan This patient was seen in conjunction with FROILAN Eugene. I have independently interviewed and examined the patient and reviewed pertinent historical, laboratory, and other data. Please refer to FROILAN Eugene note for his patient's presentation, findings, and recommendations. I have reviewed and his note and concur with his documentation Patient was seen and examined. Complains of severe substernal chest pain. Pain is worse when his anterior chest wall is touched. It radiates to his left shoulder and elbow. It is not worse when he walks. It happens at all times. He says he is allergic to Tylenol and Aleve. His vitals were reviewed, stable. Reviewed his blood work, troponins elevated Physical Exam: Gen: Looks in some discomfort, not pale, not jaundiced CVS:HS I +II, regular, no murmurs RESP: Diminished at lung bases GI: BS present and normal, soft, nontender, no palpable organs EXT:No edema ASSESSMENT: 1. Acute NSTEMI 2. Chronic ischemic cardiomyopathy, EF 35% 3. PAD 4. LETTY 5. CAD s/p CABG Plan: Continue on aspirin, statin, Plavix, therapeutic Lovenox, Imdur Cardiology consulted Morphine as needed Inpatient E&M: 72577 Subs Hosp L3
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
--- NOTE | 2019-10-21 16:54 | CM.UR ---
In-network hospitals according to [employer] using patient's ID and include (but not limited to): [facility] He Contact case management with any additional questions.
[2019-10-21] MEDS: Spironolactone 25 MG Tablet PO (17:10)
[2019-10-21] MEDS: Amitriptyline 25 MG Tablet PO (22:14)
[2019-10-21] MEDS: Atorvastatin Calcium 80 MG Tablet PO (22:14)
[2019-10-21] MEDS: Enoxaparin 80 MG/0.8 ML Syringe SC (22:14)
[2019-10-21] MEDS: Lisinopril 5 MG Tablet PO (22:15)
--- NOTE | 2019-10-21 23:50 | CPS ---
pt refused bipap this evening
[2019-10-22] VITALS (27 sets, daily range): BP systolic 95–125; BP diastolic 52–74; PULSE 64–83; RESP 18–20; TEMP 36.4–37.1; O2SAT 93–98
[2019-10-22] MEDS: 0.9% Saline Lock 10 ML Syringe IV ×5 (00:18→22:46)
[2019-10-22] MEDS: Morphine 2 MG/ML Syringe IV ×7 (00:18→22:46)
[2019-10-22] MEDS: Albuterol 2.5 MG/3 ML VIAL.NEB. INHALATION (01:58)
[2019-10-22 05:34] LABS: Absolute Lymphocyte Count 2.42 X10^3/uL (0.83-4.51); Absolute Neutrophil Count 2.9 X10^3/uL (2.0-7.7); Basophil# 0.07 X10^3/uL; Basophil% 1.1 % (0-1); Eosinophil# 0.33 X10^3/uL; Eosinophils% 5.4 % (0-5); Hematocrit 43.4 % (40-54); Hemoglobin 14.3 g/dL (13.0-16.5); Lymphocyte # 2.42 X10^3/ul (4.0); Lymphocyte % 39.6 % (19-41); Mean Corp Hgb Conc 32.9 g/dL (32-36); Mean Corpuscular Volume 91.2 fL (80-94); Mean Platelet Vol. 10.2 fl (6.2-12.0); Monocyte% 6.5 % (0-10); NRBC Flagged by Analyzer 0 % (0-5); Neutrophil # 2.85 X10^3/uL (2.7-7.7); Neutrophil % 46.7 % (47-70); Platelet Count 165 K/mm3 (150-450); RBC Distribution Width CV 14.7 % (11.6-14.6); RBC Distribution Width SD 49.3 fl (35.1-43.9); Red Blood Count 4.76 M/mm3 (4.6-6.2); White Blood Count 6.1 K/mm3 (4.4-11.0)
[2019-10-22 05:52] LABS: Anion Gap 5 (5-15); BUN 17 mg/dL (7-18); BUN/Creat Ratio 14.4 RATIO (10-20); Calcium,Total 8.2 mg/dL (8.5-10.1); Chloride 103 mmol/L (98-107); Creatinine, Serum 1.18 mg/dL (0.70-1.30); EST Glomerular Filtration Rate 68 mL/min (>60); Est Glom Filt Rate - Afr Amer 82 mL/min (>60); Estimated Creatinine Clearance 64.58 ml/min; Glucose 146 mg/dL (74-106); Potassium 3.7 mmol/L (3.5-5.1); Sodium Level 134 mmol/L (136-145)
[2019-10-22] MEDS: Aspirin E.C. 81 MG Tablet PO (06:30)
[2019-10-22] MEDS: Clopidogrel Bisulfate 75 MG Tablet PO (06:31)
[2019-10-22] MEDS: Magnesium Chloride 64 MG Delay Rel.Tablet PO (09:46)
[2019-10-22] MEDS: Isosorbide Mononitrate 30 MG Tablet PO (09:46)
[2019-10-22] MEDS: Metoprolol(XL)Succ 50 MG Tablet PO (09:46)
--- NOTE | 2019-10-22 10:54 | PCM.PN.HOSP ---
<Kevin Baeza - Last Filed: 10/22/19 10:54> Patient Problems: Active and Suspected Problems (Last Reviewed 10/21/19 @ 01:[address] Virgil Orantes MD) Chest pain (Acute) Reason for Visit: Ongoing CP no improvement. Pt reports no significant change in symptoms at all. Today he expresses concern about having a cath through his wrist vs prior caths through groin, and believes he needs full general sedation to undergo heart cath. Vitals/I&O's: Vital Signs Temp Pulse Resp BP Pulse Ox 98.1 F 80 18 100/66 95 10/22/19 09:10 10/22/19 09:46 10/22/19 09:10 10/22/19 09:46 10/22/19 09:16 Oxygen Flow Rate (L/min) 2 Oxygen Delivery Method Nasal Cannula Weight: 189 lb 6.033 oz Body Mass Index (BMI) 29.6 Finger Stick Blood Glucose 101 Intake and Output for Last 24 Hours 10/20/19 10/21/19 10/22/19 23:59 23:59 23:59 Intake Total 240 / 240 Output Total 0 / 0 Balance 240 / 240 General: Alert, Oriented x3, Cooperative HEENT: Atraumatic, PERRLA, EOMI, Normocephalic Neck: Supple, No JVD, Negative Carotid Bruits Lungs: Clear to auscultation, Normal air movement Cardiovascular: Regular rate, No murmurs Abdomen: Bowel Sounds Present, Soft, Non Tender Extremities: No edema, Capillary Refill Less than 3 Seconds Skin: No rashes, No breakdown Musculoskeletal: No Tenderness to Palpation of Joints or Extremities Neurological: Cranial nerves II-XII grossly intact Psych/Mental Status: Normal Affect, Appropriate, Alert and oriented to time, place, person, mood and affect Laboratory Results 10/22/19 05:14: Sodium 134 L, Potassium 3.7, Chloride 103, Carbon Dioxide 26.0, Anion Gap 5, BUN 17, Creatinine 1.18, Estim Creat Clear Calc 64.58, Est GFR (MDRD) Af Amer 82, Est GFR (MDRD) Non-Af 68, BUN/Creatinine Ratio 14.4, Glucose 146 H, Calcium 8.2 L 10/22/19 05:14: WBC 6.1, RBC 4.76, Hgb 14.3, Hct 43.4, MCV 91.2, MCH 30.0, MCHC 32.9, RDW Std Deviation 49.3 H, RDW Coeff of Jack 14.7 H, Plt Count 165, MPV 10.2, Immature Gran % (Auto) 0.700, Neut % (Auto) 46.7 L, Lymph % (Auto) 39.6, [place] % (Auto) 6.5, Eos % (Auto) 5.4 H, Baso % (Auto) 1.1 H, Absolute Neuts (auto) 2.9, Absolute Lymphs (auto) 2.42, Nucleated RBC % 0 Current Medications Acetaminophen (Tylenol) 650 mg PO Q6H PRN PRN PRN Reason: Pain Score 1-10/Temp > 100.7 F Albuterol Sulfate (Ventolin Aerosols) 2.5 mg INHALATION Q2H PRN PRN PRN Reason: SOB/WHEEZING Last Admin: 10/22/19 01:58 Dose: 2.5 mg Documented by: Amitriptyline HCl (Elavil) 25 mg PO DAILY@2200 [facility] Last Admin: 10/21/19 22:14 Dose: 25 mg Documented by: Amlodipine Besylate (Norvasc) 5 mg PO DAILY [facility] Last Admin: 10/22/19 09:37 Dose: Not Given Documented by: Aspirin (Ecotrin) 81 mg PO DAILY@0800 [facility] Last Admin: 10/22/19 06:30 Dose: 81 mg Documented by: Atorvastatin Calcium (Lipitor) 80 mg PO QHS [facility] Last Admin: 10/21/19 22:14 Dose: 80 mg Documented by: Clopidogrel Bisulfate (Plavix) 75 mg PO DAILY [facility] Last Admin: 10/22/19 06:31 Dose: 75 mg Documented by: Enoxaparin Sodium (Lovenox) 80 mg SC Q12 [facility] Last Admin: 10/21/19 22:14 Dose: 80 mg Documented by: Furosemide (Lasix) 40 mg PO DAILY [facility] Last Admin: 10/21/19 10:50 Dose: 40 mg Documented by: Gabapentin (Neurontin) 900 mg PO TIDCM [facility] Last Admin: 10/21/19 17:10 Dose: 900 mg Documented by: Isosorbide Mononitrate (Imdur) 30 mg PO QAM [facility] Last Admin: 10/22/19 09:46 Dose: 30 mg Documented by: Lisinopril (Zestril) 5 mg PO DAILY [facility] Last Admin: 10/22/19 09:38 Dose: Not Given Documented by: Lisinopril (Zestril) 5 mg PO QHS [facility] Last Admin: 10/21/19 22:15 Dose: 5 mg Documented by: Magnesium Chloride (Mag64) 64 mg PO DAILY [facility] Last Admin: 10/22/19 09:46 Dose: 64 mg Documented by: Metoprolol Succinate (Toprol Xl (Beta Shante)) 50 mg PO DAILY [facility] Last Admin: 10/22/19 09:46 Dose: 50 mg Documented by: Morphine Sulfate () 2 mg IV Q2H PRN PRN PRN Reason: Pain Score 6-10/10 Last Admin: 10/22/19 05:18 Dose: 2 mg Documented by: Ondansetron HCl (Zofran) 4 mg IV Q8H PRN PRN PRN Reason: NAUSEA/VOMITING Pantoprazole Sodium (Protonix) 40 mg PO BID [facility] Last Admin: 10/21/19 22:14 Dose: 40 mg Documented by: Potassium Chlor[facility] ([facility]Dur) [facility] Last Admin: 10/22/19 09:45 Dose: 20 meq Documented by: Senna/Docusate Sodium (Senokot-S, Janell-Colace) 2 tablet PO BID PRN PRN PRN Reason: Constipation Sodium Chloride () 10 - 40 ml IV UD PRN PRN Reason: SALINE FLUSH Last Admin: 10/22/19 09:47 Dose: 10 ml Documented by: Spironolactone (Aldactone) 25 mg PO DAILY@1700 [facility] Last Admin: 10/21/19 17:10 Dose: 25 mg Documented by: STROKE Vital Signs/Narrative: Vital Signs Temp Pulse Resp BP Pulse Ox 10/22/19 09:46 80 100/66 10/22/19 09:16 95 10/22/19 09:10 98.1 F 80 18 100/66 95 10/22/19 07:50 95 10/22/19 07:00 69 Medical Necessity - Tobacco Use Smoking Status: Current every day smoker Tobacco Use: Cigarettes Assessment/Plan All Active Problems (Last Reviewed 10/21/19 @ 01:[address] Virgil Orantes MD) Chest pain (Acute) 1. Csi-VPNKW-gajegft chest pain, elevated troponin at 1.110. Cardiology consulted. No relief with nitro. Patient has a significant history of CAD stating that he has had a 28 myocardial infarctions in the past. He has had a CABG x3, also has a pacemaker and defibrillator in place. Patient states his last heart cath was here, it appears that it was November 2018-this demonstrated severe triple-vessel disease and he had intervention that [id number] stent to the distal LAD. Patient's regimen currently includes aspirin, Norvasc, statin, Plavix, Zestril, metoprolol, imdur, Lasix/aldactone. 2. Ichemic CM - last echo 12/03 with EF 35%. AICD in place. Continue home diuretics. Mild RLE edema. 3. PAD - 12/2018 bypass to the RLE per [facility]. Continue norvasc. 4. LETTY - cpap qhs 5. Hx sternotomy - following CABG and associated infection. DVT ppx: lovenox This patient was seen by Kevin Baeza PA-C under the supervision of Doctor Olivier. <Martine Olivier - Last Filed: 10/22/19 14:54> Vitals/I&O's: Vital Signs Temp Pulse Resp BP Pulse Ox 97.7 F L 77 18 100/61 95 10/22/19 13:20 10/22/19 14:16 10/22/19 14:16 10/22/19 14:16 10/22/19 14:20 Oxygen Flow Rate (L/min) 2 Oxygen Delivery Method Nasal Cannula Weight: 85.9 kg Body Mass Index (BMI) 29.6 Finger Stick Blood Glucose 101 Intake and Output for Last 24 Hours 10/20/19 10/21/19 10/22/19 23:59 23:59 23:59 Intake Total 360 / 360 Output Total 0 / 0 Balance 360 / 360 Laboratory Results 10/22/19 05:14: Sodium 134 L, Potassium 3.7, Chloride 103, Carbon Dioxide 26.0, Anion Gap 5, BUN 17, Creatinine 1.18, Estim Creat Clear Calc 64.58, Est GFR (MDRD) Af Amer 82, Est GFR (MDRD) Non-Af 68, BUN/Creatinine Ratio 14.4, Glucose 146 H, Calcium 8.2 L 10/22/19 05:14: WBC 6.1, RBC 4.76, Hgb 14.3, Hct 43.4, MCV 91.2, MCH 30.0, MCHC 32.9, RDW Std Deviation 49.3 H, RDW Coeff of Jack 14.7 H, Plt Count 165, MPV 10.2, Immature Gran % (Auto) 0.700, Neut % (Auto) 46.7 L, Lymph % (Auto) 39.6, [place] % (Auto) 6.5, Eos % (Auto) 5.4 H, Baso % (Auto) 1.1 H, Absolute Neuts (auto) 2.9, Absolute Lymphs (auto) 2.42, Nucleated RBC % 0 Current Medications Acetaminophen (Tylenol) 650 mg PO Q6H PRN PRN PRN Reason: Pain Score 1-10/Temp > 100.7 F Albuterol Sulfate (Ventolin Aerosols) 2.5 mg INHALATION Q2H PRN PRN PRN Reason: SOB/WHEEZING Last Admin: 10/22/19 01:58 Dose: 2.5 mg Documented by: Amitriptyline HCl (Elavil) 25 mg PO DAILY@2200 [facility] Last Admin: 10/21/19 22:14 Dose: 25 mg Documented by: Amlodipine Besylate (Norvasc) 5 mg PO DAILY [facility] Last Admin: 10/22/19 09:37 Dose: Not Given Documented by: Aspirin (Ecotrin) 81 mg PO DAILY@0800 [facility] Last Admin: 10/22/19 06:30 Dose: 81 mg Documented by: Atorvastatin Calcium (Lipitor) 80 mg PO QHS [facility] Last Admin: 10/21/19 22:14 Dose: 80 mg Documented by: Atropine Sulfate () 0.5 mg IV UD PRN PRN Reason: HR <50 bpm Clopidogrel Bisulfate (Plavix) 75 mg PO DAILY [facility] Last Admin: 10/22/19 06:31 Dose: 75 mg Documented by: Enoxaparin Sodium (Lovenox) 80 mg SC Q12 [facility] Last Admin: 10/22/19 13:47 Dose: Not Given Documented by: Furosemide (Lasix) 40 mg PO DAILY [facility] Last Admin: 10/22/19 12:16 Dose: 40 mg Documented by: Gabapentin (Neurontin) 900 mg PO TIDCM [facility] Last Admin: 10/22/19 12:15 Dose: 900 mg Documented by: Heparin Sodium (Beef Lung) (Heparin 500 Unit/5 Ml (100/Ml)) 500 unit IV UD PRN PRN Reason: HEPARIN FLUSH Sodium Chloride () 1,000 mls @ 60 mls/hr IV .[id number] [facility] Last Admin: 10/22/19 12:14 Dose: 60 mls/hr Documented by: Isosorbide Mononitrate (Imdur) 30 mg PO QAM [facility] Last Admin: 10/22/19 09:46 Dose: 30 mg Documented by: Labetalol HCl (Trandate) 5 mg IV X1 PRN PRN Reason: SBP > 160 when pulling sheath Stop: 10/24/19 11:41 Lisinopril (Zestril) 5 mg PO DAILY [facility] Last Admin: 10/22/19 09:38 Dose: Not Given Documented by: Lisinopril (Zestril) 5 mg PO QHS [facility] Last Admin: 10/21/19 22:15 Dose: 5 mg Documented by: Magnesium Chloride (Mag64) 64 mg PO DAILY [facility] Last Admin: 10/22/19 09:46 Dose: 64 mg Documented by: Metoprolol Succinate (Toprol Xl (Beta Shante)) 50 mg PO DAILY [facility] Last Admin: 10/22/19 09:46 Dose: 50 mg Documented by: Morphine Sulfate () 2 mg IV Q2H PRN PRN PRN Reason: Pain Score 6-10/10 Last Admin: 10/22/19 12:14 Dose: 2 mg Documented by: Ondansetron HCl (Zofran) 4 mg IV Q8H PRN PRN PRN Reason: NAUSEA/VOMITING Pantoprazole Sodium (Protonix) 40 mg PO BID [facility] Last Admin: 10/22/19 12:15 Dose: 40 mg Documented by: Potassium Chloride (K-Dur) [facility] Last Admin: 10/22/19 09:45 Dose: 20 meq Documented by: Senna/Docusate Sodium (Senokot-S, Janell-Colace) 2 tablet PO BID PRN PRN PRN Reason: Constipation Sodium Chloride () 10 - 40 ml IV UD PRN PRN Reason: SALINE FLUSH Last Admin: 10/22/19 09:47 Dose: 10 ml Documented by: Sodium Chloride () 500 ml IV BOLUS PRN PRN Reason: VASO-VAGAL PROTOCOL Spironolactone (Aldactone) 25 mg PO DAILY@1700 [facility] Last Admin: 10/21/19 17:10 Dose: 25 mg Documented by: STROKE Vital Signs/Narrative: Vital Signs Temp Pulse Resp BP Pulse Ox 10/22/19 14:20 95 10/22/19 14:16 77 18 100/61 96 10/22/19 13:20 97.7 F L 69 20 H 109/63 96 10/22/19 12:40 71 18 122/73 H 97 10/22/19 12:17 76 18 97/53 L 95 10/22/19 12:01 67 18 111/69 95 10/22/19 11:45 98.2 F 68 18 118/65 95 Assessment/Plan This patient was seen in conjunction with FROILAN Eugene. I have independently interviewed and examined the patient and reviewed pertinent historical, laboratory, and other data. Please refer to FROILAN Eugene note for his patient's presentation, findings, and recommendations. I have reviewed and his note and concur with his documentation Patient was seen and examined. He had balloon angioplasty a cardiac cath today. No other acute events overnight. Physical Exam: Gen: Looks in some discomfort, not pale, not jaundiced CVS:HS I +II, regular, no murmurs RESP: Diminished at lung bases GI: BS present and normal, soft, nontender, no palpable organs EXT:No edema ASSESSMENT: 1. Acute NSTEMI 2. Chronic ischemic cardiomyopathy, EF 35% 3. PAD 4. LETTY 5. CAD s/p CABG Plan: Continue on aspirin, statin, Plavix, therapeutic Lovenox, Imdur, Aldactone, metoprolol, Lisinopril Follow-up on cardiology recommendations Inpatient E&M: 71339 Subs Hosp L2
--- NOTE | 2019-10-22 11:45 | EKG12_ITS ---
Test Reason : AM EKG Blood Pressure : / mmHG Vent. Rate : 064 BPM Atrial Rate : 064 BPM P-R Int : 172 ms QRS Dur : 142 ms QT Int : 434 ms P-R-T Axes : 044 108 085 degrees QTc Int : 447 ms Normal sinus rhythm Right bundle branch block Anterolateral infarct , age undetermined Abnormal ECG When compared with ECG of 22-OCT-2019 12:03, MANUAL COMPARISON REQUIRED, DATA IS UNCONFIRMED Confirmed by JULIO SMART, TABATHA ([id number]), online content editor ABDOULAYE JENKINS ([id number]) on 10/26/2019 9:41:59 AM Referred By: Virgil Orantes Confirmed By:TABATHA KIM MD
--- NOTE | 2019-10-22 12:02 | CL.I_ITS ---
Patient Name: SALAZAR HOLT Study Date: 10/22/2019 Performing: Kae Reyes MD Ht: 67 inches 170 cm : 1960 Wt: 189.8 lbs 86 kg Age: 59 Gender: male BSA: 1.98 PROCEDURE(S) PERFORMED AS57-SIK/COR/LV [id number], SINGLE CORONARY ARTERY CLINICAL PROFILE AND CO-MORBIDITIES Indications: ACS <= 24 hrs Heart Failure: None Stress/Imaging Stress/Image Study Performed: No CAD Presentations: Non-STEMI. Symptom onset Date/Time: 10/21/19 Time Not Available CONCLUSIONS CAD as described with ISR in dLAD stent. 2/2 vein grafts are known to be occluded and LEHMAN to LAD is known to be non functional. Severe LV dysfunction. No significant or MR. Successful cuting balloon angioplasty to ISR of dLAD RECOMMENDATIONS DESCRIPTION OF PROCEDURE The patient arrived to the procedure lab. The risks and benefits of the procedure as well as a full d escription of our services here and lack of surgical backup were fully explained to the patient and/o r their significant other prior to the catheterization. The Timeout was completed, verifying the christina ect patient and procedure. The patient's procedural site was prepped and draped in the usual fashion. Local anesthetic was given subcutaneously to right radial region with Lidocaine 2%. Using a modified Seldinger technique, arterial access was obtained via the right radial artery, a 6Fr sheath was inse rted.. Left Coronary Artery selective angiography was performed in multiple views using a 5 Fr. JL3. 5 catheter. Left Ventriculography was performed in REILLY projection using a 5 Fr. JR4. LV to AO pullbac k pressures were then recorded. Right Coronary Artery selective angiography was then performed in mul tiple views using a 5 Fr. JR 4 catheterThe images were reviewed and options discussed. A decision was then made to proceed with an Intervention, IVUS or other adjunct procedure. XB 3.0 Guide catheter was inserted and engaged into the LCA. [employer] [place] Guide wire was advance d to the LAD. Euphora 1.5 x 15 Balloon catheter was inserted. Balloon catheter was advanced across le dena in the LAD, distal. PTCA balloon inflated at 12 atms for 12 secs. PTCA balloon inflated at 12 at ms for 10 secs. PTCA balloon inflated at 12 atms for 16 secs. [place] 2.0 x 10 Cutting balloon cath eter was inserted [place] 2.0 x 10 Cutting balloon catheter was inserted Cutting balloon catheter w as advanced to the lesion in the LAD, distal. Cutting balloon catheter was advanced to the lesion in the LAD, distal. The arterial sheath was pulled and a TR Band was applied for hemostasis CORONARY ANGIOGRAPHY DOMINANCE: Right Dominant LEFT HEART ASSESSMENT Left Ventricular Ejection Fraction: by LV Gram 20 % Global Hypokinesis - Severe LEFT MAIN: Mild luminal irregularities LEFT ANTERIOR DESCENDING ARTERY: MID LAD: Instent restenosis 40 % DISTAL LAD: Instent restenosis 95 % CIRCUMFLEX ARTERY: Mild luminal irregularities, Previously placed stents are patent OM 2: Ostial - 60-70 % Stenosis. This is unchanged from final post angioplasty pictures from 02/02. I t is a small vessel that is jailed by the LCx stent and has VIKKI 3 flow in it. RIGHT CORONARY ARTERY: is occluded VALVE FINDINGS: No Aortic Valve Stenosis No Mitral Insufficency INTERVENTION INFORMATION LESION SITE: LAD (Distal) Lesion Complexity: High/C, chronic total occlusion: No, lesion at bifurcation: No, thrombus present: No, lesion length: 20 mm, culprit lesion: Yes, Previously treated lesion: Yes, Timeframe of previous treatment: 6-12 months, In-stent restenosis: Yes, Previously treated with a stent: Yes Stent Type: wi th ROYCE, In-stent Thrombosis: No Pre Stenosis: 95 % Pre intervention VIKKI flow: 3 PROCEDURE: Balloon Angioplasty, Cutting Balloon Angioplasty Post Stenosis: 5 % Post intervention VIKKI flow: 3 Lesion Devices: Cardinal 6 Fr XB3.0 100cm Guide Catheter Cabrera .014 [employer] [place] Straight 190cm Medtronic SC EUPHORA RX 1.5x15 BALLOON Vadim [employer] [place] cutting balloon 2.0x10 COMPLICATIONS No Complications PROCEDURE MEDICATIONS Fentanyl 50 mcg IV Versed 1 mg IV Fentanyl 50 mcg IV Oxygen: 2 L/min via nasal cannula Heparin given IA 10/22/2019 10:55:50 Verapamil 2.5mg, Ntg 100mcgs, 3000 units of Heparin given IA 10/22/2019 10:55:50 IV Bolus: .9 NaCl 200 ml total 10/22/2019 11:28:32 SUMMARY OF HEMODYNAMIC DATA Time AIR REST ECG 10:40:45 AO 90/69 (79) SA 10:58:41 LV 106/-1, 12 11:04:15 LV 108/-4, 16 11:04:22 LV 103/-1, 14 11:04:54 LVp 86/2, 14 11:05:05 AOp 106/59 (74) 11:05:10 AO 114/62 (85) 11:08:06 Signed By Kae Reyes MD On 10/22/2019 12:02:11 PM Kae Reyes MD
[2019-10-22] MEDS: 0.9% Normal Saline 1,000 ML 60 ML IV (12:14)
[2019-10-22] MEDS: Pantoprazole Sodium 40 MG Tablet PO ×2 (12:15→21:18)
[2019-10-22] MEDS: Gabapentin 300 MG Capsule 900 MG PO ×2 (12:15→17:25)
[2019-10-22] MEDS: Furosemide 40 MG Tablet PO (12:16)
[2019-10-22] MEDS: Spironolactone 25 MG Tablet PO (17:22)
--- NOTE | 2019-10-22 19:41 | CPS ---
DEBRIDGING MACHINE OPERATOR talked with patient about wearing BiPAP tonight. Patient said that he does not want to wear the hospital's machine during his stay. DEBRIDGING MACHINE OPERATOR told patient to call if he changes his mind, but since he's refused multiple days DEBRIDGING MACHINE OPERATOR pulled machine from room. Patient understands benefits of wearing machine at night for LETTY hx.
[2019-10-22] MEDS: Atorvastatin Calcium 80 MG Tablet PO (21:18)
[2019-10-22] MEDS: Lisinopril 5 MG Tablet PO (21:18)
[2019-10-22] MEDS: Amitriptyline 25 MG Tablet PO (21:18)
[2019-10-22] MEDS: Enoxaparin 80 MG/0.8 ML Syringe SC (22:47)
[2019-10-23] VITALS (7 sets, daily range): BP systolic 100–110; BP diastolic 61–69; PULSE 65–80; RESP 18; TEMP 36.4–36.9; O2SAT 93–98
[2019-10-23] MEDS: 0.9% Saline Lock 10 ML Syringe IV (05:53)
[2019-10-23] MEDS: Morphine 2 MG/ML Syringe IV (05:54)
[2019-10-23 06:02] LABS: Hematocrit 41.5 % (40-54); Hemoglobin 13.5 g/dL (13.0-16.5); Mean Corp Hgb Conc 32.5 g/dL (32-36); Mean Corpuscular Hgb 29.8 pg (27.0-32.0); Mean Corpuscular Volume 91.6 fL (80-94); Mean Platelet Vol. 10.3 fl (6.2-12.0); Platelet Count 171 K/mm3 (150-450); RBC Distribution Width CV 14.8 % (11.6-14.6); RBC Distribution Width SD 49.9 fl (35.1-43.9); Red Blood Count 4.53 M/mm3 (4.6-6.2); White Blood Count 6.2 K/mm3 (4.4-11.0)
[2019-10-23 06:56] LABS: ALB/GLOB Ratio 0.9 RATIO (0.9-2.4); AST(SGOT) 24 U/L (15-37); Alanine Aminotransfer ALT/SGPT 29 U/L (16-61); Albumin, Serum 2.9 g/dL (3.2-5.0); Alkaline Phosphatase 90 U/L (45-117); Anion Gap 5 (5-15); BUN 14 mg/dL (7-18); BUN/Creat Ratio 12.1 RATIO (10-20); Calcium,Total 8.3 mg/dL (8.5-10.1); Chloride 102 mmol/L (98-107); Creatinine, Serum 1.16 mg/dL (0.70-1.30); EST Glomerular Filtration Rate 69 mL/min (>60); Est Glom Filt Rate - Afr Amer 83 mL/min (>60); Estimated Creatinine Clearance 65.69 ml/min; Globulin 3.4 g/dL (2.2-4.2); Glucose 141 mg/dL (74-106); Potassium 3.9 mmol/L (3.5-5.1); Protein, Total 6.3 g/dL (6.4-8.2); Sodium Level 134 mmol/L (136-145)
--- NOTE | 2019-10-23 09:39 | PCM.PN.CARD ---
Subjectve: Patient seen and evaluated. Still complains of a little bit of chest discomfort. Objective: Vital Signs Temp Pulse Resp BP Pulse Ox 98.4 F 65 18 110/63 93 10/23/19 05:54 10/23/19 07:00 10/23/19 05:54 10/23/19 05:54 10/23/19 07:35 Oxygen Flow Rate (L/min) 2 Oxygen Delivery Method Room Air Weight: 189 lb 6.033 oz Body Mass Index (BMI) 29.6 Finger Stick Blood Glucose 101 Intake and Output for Last 24 Hours 10/21/19 10/22/19 10/23/19 23:59 23:59 23:59 Intake Total 1118 / 1598 600 / 600 Output Total 0 / 0 Balance 1118 / 1598 600 / 600 General: Awake, Alert, Oriented x 3 HEENT: PERRL, EOMI, Sclera Non Icteric Neck: Supple, Good ROM, No Lymph Node Enlargement Lungs: Clear to auscultation Cardiovascular: Regular Rhythm, Normal S1, Normal S2, No Murmurs, No Rubs, No Gallops Vascular: No Carotid Bruits, Normal Femoral Pulses, Normal Radial Pulses, Normal Dorsalis Pedal Pulse, Normal Posterior Tibial Pulses Abdomen: Bowel Sounds Present, Soft, Non Tender, No HSM, No Organomegaly Extremities: No Cyanosis, No Clubbing, No edema Neurological: No Focal Motor or Sensory Deficit 10/23/19 05:17: Sodium 134 L, Potassium 3.9, Chloride 102, Carbon Dioxide 27.0, Anion Gap 5, BUN 14, Creatinine 1.16, Est GFR (MDRD) Af Amer 83, Est GFR (MDRD) Non-Af 69, BUN/Creatinine Ratio 12.1, Glucose 141 H, Calcium 8.3 L, Total Bilirubin 0.40 10/23/19 05:17: WBC 6.2, RBC 4.53 L, Hgb 13.5, Hct 41.5, MCV 91.6, MCH 29.8, MCHC 32.5, Plt Count 171, MPV 10.3 Rhythm: EKG: ECHO: Stress Test: Cardiac Cath: PCI: CT Surgery: Holter monitor: EPS: PPM: CXR: Chest CT Scan: Medical Necessity - Tobacco Use Smoking Status: Current every day smoker Tobacco Use: Cigarettes Assessment/Plan 1. Status post angioplasty and stenting of in-stent stenosis noted of the left anterior descending artery. Still continues to have minimal chest discomfort Cath film reviewed. It does not appear that any further work-up can be done. Will recommend increasing isosorbide to 60 mg once a day We will add Ranexa 500 mg twice a day Will consider follow-up as outpatient
--- NOTE | 2019-10-23 10:00 | EKG12_ITS ---
Test Reason : CP ADMIT Blood Pressure : / mmHG Vent. Rate : 080 BPM Atrial Rate : 080 BPM P-R Int : 168 ms QRS Dur : 144 ms QT Int : 418 ms P-R-T Axes : 032 107 074 degrees QTc Int : 482 ms Normal sinus rhythm Right bundle branch block Anterolateral infarct , age undetermined Abnormal ECG When compared with ECG of 20-OCT-2019 23:24, MANUAL COMPARISON REQUIRED, DATA IS UNCONFIRMED Confirmed by JULIO SMART, TABATHA ([id number]), technical writer and editor ABDOULAYE JENKINS ([id number]) on 10/26/2019 9:43:18 AM Referred By: Virgil Orantes Confirmed By:TABATHA KIM MD
[2019-10-23] MEDS: Lisinopril 5 MG Tablet PO (10:05)
[2019-10-23] MEDS: Metoprolol(XL)Succ 50 MG Tablet PO (10:05)
[2019-10-23] MEDS: Clopidogrel Bisulfate 75 MG Tablet PO (10:05)
[2019-10-23] MEDS: Magnesium Chloride 64 MG Delay Rel.Tablet PO (10:06)
[2019-10-23] MEDS: Aspirin E.C. 81 MG Tablet PO (10:06)
[2019-10-23] MEDS: Furosemide 40 MG Tablet PO (10:06)
[2019-10-23] MEDS: Pantoprazole Sodium 40 MG Tablet PO (10:06)
[2019-10-23] MEDS: amLODIPine 5 MG Tablet PO (10:06)
[2019-10-23] MEDS: Gabapentin 300 MG Capsule 900 MG PO (10:16)
[2019-10-23] MEDS: traMADol 50 MG Tablet PO (10:16)
--- NOTE | 2019-10-23 10:16 | DCINST_ITS ---
- Discharge Diagnoses Current Active Problems: Current Active and Chronic Problems (Last Reviewed 10/21/19 @ 01:[address] Virgil Orantes MD) Chest pain (Acute) You will use the following diet at home:: Cardiac Your food should be the consistency of: Regular Your liquids should be the consistency of: Regular/Thin Discharge Activity: Return to Normal Activity Allergies/Adverse Reactions: Allergies latex Allergy (Unknown, Verified 10/17/19 10:35) unknown acetaminophen [From Darvocet-N] Allergy (Verified 10/17/19 10:35) Anaphylaxis black pepper Allergy (Verified 10/17/19 10:35) Rash SOB diphenhydramine [From Benadryl] Allergy (Verified 10/17/19 10:35) Rash NSAIDS (Non-Steroidal Anti-Inflamma Allergy (Verified 10/17/19 10:35) Anaphylaxis onion Allergy (Verified 10/21/19 01:38) Hives oxycodone [From Percocet] Allergy (Verified 10/17/19 10:35) Anaphylaxis peas Allergy (Verified 10/17/19 10:35) Rash SOB Penicillins Allergy (Verified 10/17/19 10:35) Anaphylaxis propoxyphene [From Darvocet-N] Allergy (Verified 10/17/19 10:35) Anaphylaxis hydrocodone [From Vicodin] Adverse Reaction (Mild, Verified 10/17/19 10:35) Nausea/Vom/Diarrhea Medications to take at Discharge Alendronate Sodium 70 mg PO QWEEK 11/07/18 Aspirin E.C. [Ecotrin] 81 mg PO DAILY@0800 11/07/18 Clopidogrel Bisulfate [Plavix] 75 mg PO DAILY 11/07/18 Gabapentin [Neurontin] 300 mg PO TIDCM 11/07/18 Lisinopril 5 mg PO DAILY 11/07/18 Magnesium Oxide [Magnesium] 400 mg PO DAILY 11/07/18 gabapentin 600 mg tablet 600 mg PO TID 11/15/18 pantoprazole 40 mg tablet,delayed release 40 mg PO BID 11/15/18 Metoprolol(XL)Succ [Toprol Xl (Beta Shante)] 50 mg PO DAILY #30 tab 05/29/19 amlodipine 5 mg tablet 5 mg PO DAILY 06/09/19 atorvastatin 80 mg tablet 80 mg PO QHS #90 tab 07/06/19 potassium chloride 20 mEq tablet,extended release(part/cryst) 20 meq PO DAILY #90 tab 07/06/19 albuterol sulfate 0.63 mg/3 mL solution for nebulization 0.63 mg INHALATION Q4H PRN #270 ml 07/12/19 furosemide 40 mg tablet 40 mg PO DAILY #180 tab 07/31/19 amitriptyline 25 mg tablet 25 mg PO DAILY 08/17/19 spironolactone 25 mg tablet 25 mg PO DAILY #90 tab 08/17/19 Isosorbide Mononitrate [Imdur] 60 mg PO DAILY #30 tab 10/23/19 Ranolazine [Ranexa] 500 mg PO BID #60 tab 10/23/19 traMADol [Ultram] 50 mg PO Q6H PRN PRN #12 tablet 10/23/19 The following prescriptions were given: Isosorbide Mononitrate [Imdur] 60 mg PO DAILY #30 tab Transmission Status: Pending to [id number] [facility] Ranolazine [Ranexa] 500 mg PO BID #60 tab Transmission Status: Pending to [facility] traMADol [Ultram] 50 mg PO Q6H PRN PRN #12 tablet PRN Reason: Pain Score 1-10/10 Transmission Status: Received by [facility] Primary Care Physician: Oral Manuel MD [Primary Care Provider] - Please follow up with your Primary Care Physician in: 1-2 weeks Test Results: Test results from this visit will be discussed in further detail at your follow- up appointment, if applicable. Please Follow Up With: Kasi Reyes MD When: as directed
[2019-10-23] MEDS: Isosorbide Mononitrate 60 MG Tablet PO (11:45)
--- NOTE | 2019-10-23 12:28 | PCM.DC.SUM ---
<Kevin Baeza - Last Filed: 10/23/19 12:28> Discharge Date and Diagnosis Date of Admission: 10/21/19 Date of Discharge: 10/23/19 - Primary Discharge Diagnosis Acute Problems: Active Problems (Last Reviewed 10/21/19 @ 01:[address] Virgil Orantes MD) Chest pain 2/2 CAD s/p balloon angioplasty - Secondary Discharge Diagnosis Chronic Problems: Chronic Problems (Last Reviewed 10/21/19 @ 01:[address] 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) NSTEMI (non-ST elevated myocardial infarction) (Chronic 12/13/18) History of implantable cardiac defibrillator (ICD) (Chronic 09/15/17) History of coronary artery stent placement (Chronic 12/13/18) ROYCE-LCx and LAD 12/2006; PCI-ROYCE-Mid LAD w/ 3.0 x 28 mm Xience overlapped with a 3.5 x 18 mm Xience Stent 09/08/2010; PCI ROYCE-Mid LCx w/ 3.0 x 33 Xience and ROYCE-Mid LAD w/ 2.5 x 33 mm Xience Stent 10/02/2014; QVY-EDI-DIF-Mid-LCx w/ 2.5 x 38 mm Promus Synergy Stent and ROYCE-Distal LAD w/ 2.25 x 20 mm Promus Synergy Stent 12/13/18 Ischemic cardiomyopathy (Chronic) H/O coronary artery bypass surgery (Chronic 01/28/12) CABG x 3 LEHMAN-LAD, SVG-RPDA, SVG-LCx 01/28/2012 Nicotine dependence (Chronic) Essential (primary) hypertension (Chronic) HLD (hyperlipidemia) (Chronic) Abdominal aortic aneurysm (AAA) (Chronic) Peripheral vascular occlusive disease (Chronic) Right femoral-tibioperoneal bypass, femoral endarterectomy w/ bovine patch angioplasty, profundoplasty 12/28/18 COPD (chronic obstructive pulmonary disease) (Chronic) LETTY (obstructive sleep apnea) (Chronic) Bipap 27/08 Left lower lobe pulmonary nodule (Chronic) Hospital Course and Treatment Imaging Results: RAD/Chest 1 View (Portable) IMPRESSION: No acute cardiopulmonary findings or changes. Negative for new consolidation, focal atelectasis or a substantial pleural effusion. Normal cardiac size. ICD remains in good position. Left heart cath: CONCLUSIONS CAD as described with ISR in dLAD stent. 2/2 vein grafts are known to be occluded and LEHMAN to LAD is known to be non functional. Severe LV dysfunction. No significant or MR. Successful cuting balloon angioplasty to ISR of dLAD CORONARY ANGIOGRAPHY DOMINANCE: Right Dominant LEFT HEART ASSESSMENT Left Ventricular Ejection Fraction: by LV Gram 20 % Global Hypokinesis - Severe LEFT MAIN: Mild luminal irregularities LEFT ANTERIOR DESCENDING ARTERY: MID LAD: Instent restenosis 40 % DISTAL LAD: Instent restenosis 95 % CIRCUMFLEX ARTERY: Mild luminal irregularities, Previously placed stents are patent OM 2: Ostial - 60-70 % Stenosis. This is unchanged from final post angioplasty pictures from 02/02. It is a small vessel that is jailed by the LCx stent and has VIKKI 3 flow in it. RIGHT CORONARY ARTERY: is occluded VALVE FINDINGS: No Aortic Valve Stenosis No Mitral Insufficency INTERVENTION INFORMATION LESION SITE: LAD (Distal) Lesion Complexity: High/C, chronic total occlusion: No, lesion at bifurcation: No, thrombus present: No, lesion length: 20 mm, culprit lesion: Yes, Previously treated lesion: Yes, Timeframe of previous treatment: 6-12 months, In-stent restenosis: Yes, Previously treated with a stent: Yes Stent Type: with ROYCE, In-stent Thrombosis: No Pre Stenosis: 95 % Pre intervention VIKKI flow: 3 PROCEDURE: Balloon Angioplasty, Cutting Balloon Angioplasty Post Stenosis: 5 % Post intervention VIKKI flow: 3 Lesion Devices: Cardinal 6 Fr XB3.0 100cm Guide Catheter Cabrera .014 [employer] [place] Straight 190cm Medtronic SC EUPHORA RX 1.5x15 BALLOON [employer] [place] cutting balloon 2.0x10 Consults: Cardiology - Amy/[facility] Operations: None Procedures: Cardiac catheterization Summary of Care Provided: Hospital course: The patient is a 59 year old M with past medical history of multiple prior MIs, stent placements and CABG, TIAs, ischemic cardiomyopathy, pacemaker, defibrillator in place, nicotine abuse, hypertension, hyperlipidemia, AAA, COPD, obstructive sleep apnea, who presented to the emergency room with chest pain. He described a midsternal chest pain radiating into the left shoulder. EKG did not show any acute changes, troponin was negative initially. He was admitted with concern for chest pain being of cardiac etiology. His troponin did elevate to a max of 1.110, and cardiology was consulted. Given his severe heart history the decision was made to take him for cardiac catheterization. A balloon angioplasty was performed of the in-stent stenosis found in the LAD. He continued to have chest pain following this and cardiology recommended increasing his isosorbide and adding Ranexa to his home regimen. He remained hemodynamically stable overnight following his heart catheterization. He was discharged home in stable condition, he will need follow-up with cardiology as directed and with his PCP in 1 to 2 weeks. He was hesitant to fill ranexa as in the past he tried to get it and insurance would not cover it and it would be very expensive, however after I called and confirmed with [facility] that it would cost $34 he did not seem concerned with the cost. This patient was seen by Kevin Baeza PA-C under the supervision of Doctor Soy. [] - Physical Exam Vitals/I&O's: Vital Signs Temp Pulse Resp BP Pulse Ox 97.5 F L 74 18 108/69 97 10/23/19 10:10 10/23/19 10:10 10/23/19 10:10 10/23/19 10:10 10/23/19 10:10 Oxygen Flow Rate (L/min) 2 Oxygen Delivery Method Nasal Cannula Weight: 189 lb 6.033 oz Body Mass Index (BMI) 29.6 Finger Stick Blood Glucose 101 Intake and Output for Last 24 Hours 10/21/19 10/22/19 10/23/19 23:59 23:59 23:59 Intake Total 1118 / 1598 600 / 600 Output Total 0 / 0 Balance 1118 / 1598 600 / 600 General: Alert, Oriented x3, Cooperative HEENT: Atraumatic, PERRLA, EOMI, Normocephalic Neck: Supple, No JVD, Negative Carotid Bruits Lungs: Clear to auscultation, Normal air movement Cardiovascular: Regular rate, No murmurs Abdomen: Bowel Sounds Present, Soft, Non Tender Extremities: No edema, Capillary Refill Less than 3 Seconds Skin: No rashes, No breakdown Musculoskeletal: No Tenderness to Palpation of Joints or Extremities Neurological: Cranial nerves II-XII grossly intact Psych/Mental Status: Normal Affect, Appropriate, Alert and oriented to time, place, person, mood and affect Laboratory Results 10/23/19 05:17: Sodium 134 L, Potassium 3.9, Chloride 102, Carbon Dioxide 27.0, Anion Gap 5, BUN 14, Creatinine 1.16, Estim Creat Clear Calc 65.69, Est GFR (MDRD) Af Amer 83, Est GFR (MDRD) Non-Af 69, BUN/Creatinine Ratio 12.1, Glucose 141 H, Calcium 8.3 L, Total Bilirubin 0.40, AST 24, ALT 29, Alkaline Phosphatase 90, Total Protein 6.3 L, Albumin 2.9 L, Globulin 3.4, Albumin/Globulin Ratio 0.9 10/23/19 05:17: WBC 6.2, RBC 4.53 L, Hgb 13.5, Hct 41.5, MCV 91.6, MCH 29.8, MCHC 32.5, RDW Std Deviation 49.9 H, RDW Coeff of Jack 14.8 H, Plt Count 171, MPV 10.3 Current Medications Acetaminophen (Tylenol) 650 mg PO Q6H PRN PRN PRN Reason: Pain Score 1-10/Temp > 100.7 F Albuterol Sulfate (Ventolin Aerosols) 2.5 mg INHALATION Q2H PRN PRN PRN Reason: SOB/WHEEZING Last Admin: 10/22/19 01:58 Dose: 2.5 mg Documented by: Amitriptyline HCl (Elavil) 25 mg PO DAILY@2200 [facility] Last Admin: 10/22/19 21:18 Dose: 25 mg Documented by: Amlodipine Besylate (Norvasc) 5 mg PO DAILY [facility] Last Admin: 10/23/19 10:06 Dose: 5 mg Documented by: Aspirin (Ecotrin) 81 mg PO DAILY@0800 [facility] Last Admin: 10/23/19 10:06 Dose: 81 mg Documented by: Atorvastatin Calcium (Lipitor) 80 mg PO QHS [facility] Last Admin: 10/22/19 21:18 Dose: 80 mg Documented by: Atropine Sulfate () 0.5 mg IV UD PRN PRN Reason: HR <50 bpm Clopidogrel Bisulfate (Plavix) 75 mg PO DAILY [facility] Last Admin: 10/23/19 10:05 Dose: 75 mg Documented by: Furosemide (Lasix) 40 mg PO DAILY [facility] Last Admin: 10/23/19 10:06 Dose: 40 mg Documented by: Gabapentin (Neurontin) 900 mg PO TIDCM [facility] Last Admin: 10/23/19 10:16 Dose: 900 mg Documented by: Heparin Sodium (Beef Lung) (Heparin 500 Unit/5 Ml (100/Ml)) 500 unit IV UD PRN PRN Reason: HEPARIN FLUSH Isosorbide Mononitrate (Imdur) 60 mg PO DAILY [facility] Last Admin: 10/23/19 11:45 Dose: 60 mg Documented by: Labetalol HCl (Trandate) 5 mg IV X1 PRN PRN Reason: SBP > 160 when pulling sheath Stop: 10/24/19 11:41 Lisinopril (Zestril) 5 mg PO DAILY [facility] Last Admin: 10/23/19 10:05 Dose: 5 mg Documented by: Lisinopril (Zestril) 5 mg PO QHS [facility] Last Admin: 10/22/19 21:18 Dose: 5 mg Documented by: Magnesium Chloride (Mag64) 64 mg PO DAILY [facility] Last Admin: 10/23/19 10:06 Dose: 64 mg Documented by: Metoprolol Succinate (Toprol Xl (Beta Shante)) 50 mg PO DAILY [facility] Last Admin: 10/23/19 10:05 Dose: 50 mg Documented by: Ondansetron HCl (Zofran) 4 mg IV Q8H PRN PRN PRN Reason: NAUSEA/VOMITING Pantoprazole Sodium (Protonix) 40 mg PO BID [facility] Last Admin: 10/23/19 10:06 Dose: 40 mg Documented by: Potassium Ch[facility] ([facility]Dur) [facility] Last Admin: 10/23/19 10:06 Dose: 20 meq Documented by: Ranolazine (Ranexa) 500 mg PO BID [facility] Last Admin: 10/23/19 10:30 Dose: Not Given Documented by: Senna/Docusate Sodium (Senokot-S, Janell-Colace) 2 tablet PO BID PRN PRN PRN Reason: Constipation Sodium Chloride () 10 - 40 ml IV UD PRN PRN Reason: SALINE FLUSH Last Admin: 10/23/19 05:53 Dose: 10 ml Documented by: Sodium Chloride () 500 ml IV BOLUS PRN PRN Reason: VASO-VAGAL PROTOCOL Spironolactone (Aldactone) 25 mg PO DAILY@1700 [facility] Last Admin: 10/22/19 17:22 Dose: 25 mg Documented by: Tramadol HCl (Ultram) 50 mg PO Q6H PRN PRN PRN Reason: Pain Score 1-11/24 Last Admin: 10/23/19 10:16 Dose: 50 mg Documented by: Discharge Diet: Low fat/ Low Cholesterol, 2000 mg Sodium Diet Discharge Activity: Return to Normal Activity Home Medications: Medications to take at Discharge Alendronate Sodium 70 mg PO QWEEK 11/07/18 Aspirin E.C. [Ecotrin] 81 mg PO DAILY@0800 11/07/18 Clopidogrel Bisulfate [Plavix] 75 mg PO DAILY 11/07/18 Gabapentin [Neurontin] 300 mg PO TIDCM 11/07/18 Lisinopril 5 mg PO DAILY 11/07/18 Magnesium Oxide [Magnesium] 400 mg PO DAILY 11/07/18 gabapentin 600 mg tablet 600 mg PO TID 11/15/18 pantoprazole 40 mg tablet,delayed release 40 mg PO BID 11/15/18 Metoprolol(XL)Succ [Toprol Xl (Beta Shante)] 50 mg PO DAILY #30 tab 05/29/19 amlodipine 5 mg tablet 5 mg PO DAILY 06/09/19 atorvastatin 80 mg tablet 80 mg PO QHS #90 tab 07/06/19 potassium chloride 20 mEq tablet,extended release(part/cryst) 20 meq PO DAILY #90 tab 07/06/19 albuterol sulfate 0.63 mg/3 mL solution for nebulization 0.63 mg INHALATION Q4H PRN #270 ml 07/12/19 furosemide 40 mg tablet 40 mg PO DAILY #180 tab 07/31/19 amitriptyline 25 mg tablet 25 mg PO DAILY 08/17/19 spironolactone 25 mg tablet 25 mg PO DAILY #90 tab 08/17/19 Isosorbide Mononitrate [Imdur] 60 mg PO DAILY #30 tab 10/23/19 Ranolazine [Ranexa] 500 mg PO BID #60 tab 10/23/19 traMADol [Ultram] 50 mg PO Q6H PRN PRN #12 tab 10/23/19 Following Prescriptions Were Given to Patient: Isosorbide Mononitrate [Imdur] 60 mg PO DAILY #30 tab Transmission Status: Received by [employer] [facility] Ranolazine [Ranexa] 500 mg PO BID #60 tab Transmission Status: Received by [facility] [facility] traMADol [Ultram] 50 mg PO Q6H PRN PRN #12 tab PRN Reason: Pain Score 1-11/24 Transmission Status: Received by [facility] [facility] Primary Care Physician: Oral Manuel MD [Primary Care Provider] - Please follow up with your Primary Care Physician in: 1-2 weeks Please Follow Up With: Kasi Reyes MD When: as directed Disposition: Home Minutes spent on discharge:: 35 Patient Condition:: Stable Medical Necessity - Tobacco Use Smoking Status: Current every day smoker Tobacco Use: Cigarettes Meaningful Use Info Meaningful Use Diagnoses (Choose all that apply): None applicable <[place] - Last Filed: 10/23/19 14:15> Discharge Date and Diagnosis - Secondary Discharge Diagnosis Chronic Problems: Chronic Problems (Last Reviewed 10/21/19 @ 01:[address] 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) NSTEMI (non-ST elevated myocardial infarction) (Chronic 12/13/18) History of implantable cardiac defibrillator (ICD) (Chronic 09/15/17) History of coronary artery stent placement (Chronic 12/13/18) ROYCE-LCx and LAD 12/2006; PCI-ROYCE-Mid LAD w/ 3.0 x 28 mm Xience overlapped with a 3.5 x 18 mm Xience Stent 09/08/2010; PCI ROYCE-Mid LCx w/ 3.0 x 33 Xience and ROYCE-Mid LAD w/ 2.5 x 33 mm Xience Stent 10/02/2014; GTS-WIY-ETO-Mid-LCx w/ 2.5 x 38 mm Promus Synergy Stent and ROYCE-Distal LAD w/ 2.25 x 20 mm Promus Synergy Stent 12/13/18 Ischemic cardiomyopathy (Chronic) H/O coronary artery bypass surgery (Chronic 01/28/12) CABG x 3 LEHMAN-LAD, SVG-RPDA, SVG-LCx 01/28/2012 Nicotine dependence (Chronic) Essential (primary) hypertension (Chronic) HLD (hyperlipidemia) (Chronic) Abdominal aortic aneurysm (AAA) (Chronic) Peripheral vascular occlusive disease (Chronic) Right femoral-tibioperoneal bypass, femoral endarterectomy w/ bovine patch angioplasty, profundoplasty 12/28/18 COPD (chronic obstructive pulmonary disease) (Chronic) LETTY (obstructive sleep apnea) (Chronic) Bipap 27/08 Left lower lobe pulmonary nodule (Chronic) Hospital Course and Treatment Summary of Care Provided: This patient was seen in conjunction with FROILAN Eugene. I have independently interviewed and examined the patient and reviewed pertinent historical, laboratory, and other data. Please refer to FROILAN Eugene note for his patient's presentation, findings, and recommendations. I have reviewed and his note and concur with his documentation 59-year-old male with multiple MIs, CAD status post stents status post CABG, TIAs ischemic cardiomyopathy who comes in with chest pain that was described as midsternal radiating to the left shoulder. His work-up in the ED was unremarkable with negative troponin initially. His troponins later on were elevated. Cardiology was consulted. He had a cardiac catheterization done on 10/22/19. Findings was an in-stent stenosis in the LAD. A balloon angioplasty was done. His isosorbide was increased. Ranexa was added. On the day of discharge, patient was seen and examined. He complained of relatively moderate pain. He has allergy to oxycodone which gives him anaphylaxis and Vicodin which gives him nausea vomiting and diarrhea. He was tried on oral tramadol and he seemed to have been okay. Patient to follow-up with cardiology in the outpatient as scheduled. Physical Exam: Gen:. More comfortable today, not pale, not jaundiced CVS:HS I +II, regular, no murmurs RESP: Diminished at lung bases GI: BS present and normal, soft, nontender, no palpable organs EXT:No edema - Physical Exam Vitals/I&O's: Vital Signs Temp Pulse Resp BP Pulse Ox 97.5 F L 74 18 108/69 97 10/23/19 10:10 10/23/19 10:10 10/23/19 10:10 10/23/19 10:10 10/23/19 10:10 Oxygen Flow Rate (L/min) 2 Oxygen Delivery Method Nasal Cannula Weight: 85.9 kg Body Mass Index (BMI) 29.6 Finger Stick Blood Glucose 101 Intake and Output for Last 24 Hours 10/21/19 10/22/19 10/23/19 23:59 23:59 23:59 Intake Total 1118 / 1598 960 / 960 Output Total 0 / 0 Balance 1118 / 1598 960 / 960 Laboratory Results 10/23/19 05:17: Sodium 134 L, Potassium 3.9, Chloride 102, Carbon Dioxide 27.0, Anion Gap 5, BUN 14, Creatinine 1.16, Estim Creat Clear Calc 65.69, Est GFR (MDRD) Af Amer 83, Est GFR (MDRD) Non-Af 69, BUN/Creatinine Ratio 12.1, Glucose 141 H, Calcium 8.3 L, Total Bilirubin 0.40, AST 24, ALT 29, Alkaline Phosphatase 90, Total Protein 6.3 L, Albumin 2.9 L, Globulin 3.4, Albumin/Globulin Ratio 0.9 10/23/19 05:17: WBC 6.2, RBC 4.53 L, Hgb 13.5, Hct 41.5, MCV 91.6, MCH 29.8, MCHC 32.5, RDW Std Deviation 49.9 H, RDW Coeff of Jack 14.8 H, Plt Count 171, MPV 10.3 Inpatient E&M: 74247 Disch Hosp
[2019-10-23] MEDS: Ranolazine 500 MG Tablet PO (12:44)
--- NOTE | 2019-10-24 05:59 | CRPHASE1 ---
Patient Communication Choice Letter Given to Patient:: Yes Guide to Cardiac Rehab Given by ICU Staff Prior to Discharge: Yes Guide to Cardiac Rehab Mailed to Patient by CR Staff:: Yes Patient Contacted Post Discharge by CR Staff:: Yes [facility]:: [facility] Risk Factors/Lifestyle Family History: Family History (Last Reviewed 10/21/19 @ 01:[address] Virgil Orantes MD) Sister CVA (cerebral vascular accident) Heart disease Hypertension High cholesterol Diabetes Cancer Father Arthritis Cancer Mother Arthritis Cancer Laboratory Values: Cardiac Rehab Phase I Labs Triglycerides 328 mg/dL (-199) H 10/21/19 06:10 Cholesterol 132 mg/dL (200) 10/21/19 06:10 LDL Cholesterol 44 mg/dL (0-130) 10/21/19 06:10 HDL Cholesterol 22 mg/dL (40-) L 10/21/19 06:10 Cardiac Rehabilitation Info Cardiac Rehabilitation Program Information: Cardiac Rehabilitation is important for patients like you who are recovering from a heart problem. Cardiac rehabilitation programs are recognized as integral to the continued care of the patient with coronary heart disease. The cardiac rehabilitation program is designed to optimize a patient's physical, psychological, and social functioning. Health primary care coordinator work in cardiac rehabilitation programs and assist you with getting the treatments you need to get stronger and healthier - like exercise, healthy eating habits, and medications. Cardiac rehabilitation has been show to help people with heart problems live longer and have better life enjoyment than people who do not go to cardiac rehabilitation. Please contact the Cardiac Rehabilitation Program at [facility] at in two weeks if you have not heard from them.
--- NOTE | 2019-10-24 06:01 | CRPH1.INSTRU ---
General Education CAD and cardiac anatomy and function:: Not instructed Explanation of diagnoses and procedures:: Not instructed Sign/Symptoms of [place]:: Not instructed Proper use of NTG-SL: Not instructed Emergency procedures and activation of EMS: Not instructed Compliance of all prescribed medications: Not instructed - Patient was discharged prior to CR staff educating patient. Booklet mailed with risk factors identified to patient via telephone.
--- NOTE | 2019-10-24 11:35 | CASEMGMT ---
FAVIOLA ALCOCER DC PHONE CALL DC DATE: 10/23/2019 DC Disposition: Home Diagnosis on Discharge: chest pain with angioplasty LACE/STRATA: 11/17 Intro role of CM to patient via phone. Patient states he is doing well, does not have questions re: medications or instructions. Patient states he will be going on vacation and will see the doctor after this. FAVIOLA ALCOCER recommended that patient make the appointments today for after vacation so this is set up prior to him leaving. Patient states he will do this. No further questions, but patient did say his care was excellent and he appreciated all the nurses helping him. Qing GHOSHN RN ACM
== END 2019-10-23 12:56 | disposition home or self-care (01) | DRG 251 ==
LOC: ED 23:45 → PCU 10-21 00:42
PROVIDERS: Physician Assistant; Specialist; Admitting Provider Hospitalist; Emergency Provider Emergency Medicine; PCP Family Medicine; Referring Provider Hospitalist; Visit Provider Internal Medicine
DX: I21.4 Non-ST elevation (NSTEMI) myocardial infarction (principal); T82.855A Stenosis of coronary artery stent, initial encounter; I50.22 Chronic systolic (congestive) heart failure; I25.110 Atherosclerotic heart disease of native coronary artery with unstable angina pectoris; I25.700 Atherosclerosis of coronary artery bypass graft(s), unspecified, with unstable angina pectoris; I25.82 Chronic total occlusion of coronary artery; Y83.1 Surgical operation with implant of artificial internal device as the cause of abnormal reaction of the patient, or of later complication, without mention of misadventure at the time of the procedure; I11.0 Hypertensive heart disease with heart failure; I25.5 Ischemic cardiomyopathy; J44.9 Chronic obstructive pulmonary disease, unspecified; E78.5 Hyperlipidemia, unspecified; M06.9 Rheumatoid arthritis, unspecified; G62.9 Polyneuropathy, unspecified; M81.0 Age-related osteoporosis without current pathological fracture; G47.33 Obstructive sleep apnea (adult) (pediatric); K21.9 Gastro-esophageal reflux disease without esophagitis; F32.9 Major depressive disorder, single episode, unspecified; F41.9 Anxiety disorder, unspecified; F17.210 Nicotine dependence, cigarettes, uncomplicated; Z79.82 Long term (current) use of aspirin; Z79.02 Long term (current) use of antithrombotics/antiplatelets; Z79.899 Other long term (current) drug therapy; I25.2 Old myocardial infarction; Z86.73 Personal history of transient ischemic attack (TIA), and cerebral infarction without residual deficits; Z95.810 Presence of automatic (implantable) cardiac defibrillator; Z95.1 Presence of aortocoronary bypass graft; Z95.5 Presence of coronary angioplasty implant and graft
CPT/HCPCS: 36415; 71045; 80048; 80053; 80061; 84484; 85025; 85027; 92920; 93005; 93458; 94002; 94640; 99152; 99153; 99285; 99406; C1725; J7030; J7040; A4216; C1769; C1887; C1894; J2405; Q9967

== ENCOUNTER → 2019-12-08 14:55 | Outpatient (CLI) | payer MEDICARE, SELFPAY ==
[2018-12-13 11:07] VITALS: BMI 26.3
[2019-11-10 13:16] VITALS: BMI 30.2
--- NOTE | 2019-12-08 15:02 | CT_ITS ---
STUDY: CT ABDOMEN AND PELVIS WITH CONTRAST REASON FOR EXAM: Male, 59 years old. Abdominal pain esophageal stricture sternal surgery, abdominal aneurysm RADIATION DOSAGE (If Supplied By Facility): CTDIvol = ( 18.82 ) mGy, DLP = ( 839.24 ) mGycm TECHNIQUE: CT images were obtained from the dome of the diaphragm to the symphysis pubis without oral contrast. Oral and amp; IV READII-CAT and amp; 100ML ISOVUE 300 was administered. Sagittal and coronal images were reconstructed. Individualized dose optimization techniques were used for this CT. COMPARISON: CT chest 12 December 2018 FINDINGS: Left lower lobe 5 mg granuloma is stable since one year prior. There is coronary bypass grafting and pacemaker leads in the right ventricle. There is prior infarct of the left ventricular apex with spherical remodeling. Normal liver. Normal gallbladder and extrahepatic biliary system. Normal spleen. Normal pancreas. Normal bilateral adrenal glands. Normal right kidney. Normal left kidney. Normal visualized stomach. Normal small intestine. There is sigmoid diverticulosis without diverticulitis.. The appendix is visualized and appears normal. There is infrarenal abdominal aortic aneurysm with maximal diameter of 4 cm. In the upper portion there is extensive large volume lipid rich plaque/thrombus with approximately 50% luminal stenosis. There is extensive atherosclerosis of bilateral common iliac and external iliac arteries. There are surgical changes in the right inguinal region with occlusion of the right superficial femoral artery. There is a proximal collateral branch suboptimal visualization of its origin. Profunda femoris is patent. Normal urinary bladder. Normal abdominal wall. Normal osseous structures. IMPRESSION: Normal enhanced CT of the abdomen and pelvis. CT/Abdomen/Pelvis WITH Contrast IMPRESSION: 1. 4 cm infrarenal abdominal aortic aneurysm, no rupture or leak. 2. No acute abdominal findings. 3. Right inguinal surgical change, SFA occlusion. Refer to dedicated vascular study for confirmation. Electronically Signed: Oumar Sun at 17:10 EDT Tel , Service support ,
== END ==
PROVIDERS: PCP Family Medicine; Referring Provider Family Medicine; Visit Provider Family Medicine
DX: R10.9 Unspecified abdominal pain (principal); I25.10 Atherosclerotic heart disease of native coronary artery without angina pectoris; R19.5 Other fecal abnormalities
CPT/HCPCS: 74177; Q9967

== ENCOUNTER → 2020-01-19 17:31 | Outpatient (CLI) | payer MEDICARE, SELFPAY ==
[2018-12-13 11:07] VITALS: BMI 26.3
[2020-01-15 10:38] VITALS: BMI 31.1
--- NOTE | 2020-01-19 17:32 | CT_ITS ---
HISTORY: SMOKER OVER 40 PACK YEARS, STERNAL SURGERY, 28 NJ'S,24 STROKES, 15 TIA'S, TRIPLE BYPASS, PACEMAKER/DEFIBRILLATOR TECHNIQUE: Helically acquired images of the chest were obtained without IV contrast. Number of images including paperwork: [id number]. A radiation dose optimization technique was used for this scan. Exam performed using low dose chest CT screening protocol. CTDI 4.02 mGy. Total DLP 141.95 mGy*cm. COMPARISON: 12/12/2018 FINDINGS: VASCULATURE: Vascular tortuosity. Fusiform dilatation of the descending thoracic aorta measuring 4.6 cm in diameter, similar to previous. HEART/PERICARDIUM: Stably enlarged. Coronary stenting. MEDIASTINUM: Unremarkable. ADENOPATHY: No pathologic appearing adenopathy. THYROID: Unremarkable visualized portions. LUNG PARENCHYMA: No consolidation or mass. Paracentral emphysema. Mild peribronchial thickening. 5 mm left lower lobe lung nodule (2:166), unchanged compared to 2019. 2 mm calcific granuloma also noted in the superior segment left lower lobe (2: 105). No suspicious lung nodule. PLEURAL SPACES: Unremarkable. UPPER ABDOMEN: Unremarkable. OSSEOUS AND SOFT TISSUE STRUCTURES: No acute skeletal findings. Degenerative changes. Postoperative changes of the sternum. DEVICES: Pacemaker with left-sided generator. CT/Low Dose CT Lung Screening IMPRESSION: No suspicious lung nodule detected. Lung-RADS 2. Recommend continued annual screening with low dose chest CT as indicate a published guidelines. Individualized dose optimization techniques were used for this CT. at 2244 Reported and signed by: Vania Osullivan MD Electronically Signed: Vania Osullivan MD at 22:44 EST Tel , Service support ,
== END ==
PROVIDERS: PCP Family Medicine; Referring Provider Nurse Practitioner Acute Care; Visit Provider Nurse Practitioner Acute Care
DX: F17.210 Nicotine dependence, cigarettes, uncomplicated (principal)
CPT/HCPCS: G0297

== ENCOUNTER → 2020-02-13 12:18 | Outpatient (CLI) | payer MEDICARE, SELFPAY ==
[2018-12-13 11:07] VITALS: BMI 26.3
[2020-02-13 11:29] VITALS: BMI 31.1
[2020-02-13 12:36] LABS: Absolute Lymphocyte Count 2.26 X10^3/uL (0.83-4.51); Basophil# 0.11 X10^3/uL; Basophil% 1.5 % (0-1); Eosinophil# 0.52 X10^3/uL; Eosinophils% 7.1 % (0-5); Hematocrit 52.1 % (40-54); Hemoglobin 17.2 g/dL (13.0-16.5); Lymphocyte # 2.26 X10^3/ul (4.0); Lymphocyte % 30.8 % (19-41); Mean Corpuscular Hgb 30.8 pg (27.0-32.0); Mean Corpuscular Volume 93.4 fL (80-94); Monocyte% 5.5 % (0-10); NRBC Flagged by Analyzer 0 % (0-5); Neutrophil # 3.99 X10^3/uL (2.7-7.7); Neutrophil % 54.4 % (47-70); Platelet Count 201 K/mm3 (150-450); RBC Distribution Width CV 14.9 % (11.6-14.6); RBC Distribution Width SD 50.7 fl (35.1-43.9); Red Blood Count 5.58 M/mm3 (4.6-6.2); White Blood Count 7.3 K/mm3 (4.4-11.0)
[2020-02-13 12:57] LABS: Anion Gap 2 (5-15); BUN 15 mg/dL (7-18); BUN/Creat Ratio 11.2 RATIO (10-20); Calcium,Total 9.3 mg/dL (8.5-10.1); Chloride 100 mmol/L (98-107); Creatinine, Serum 1.34 mg/dL (0.70-1.30); EST Glomerular Filtration Rate 58 mL/min (>60); Est Glom Filt Rate - Afr Amer 70 mL/min (>60); Glucose 106 mg/dL (74-106); Potassium 4.3 mmol/L (3.5-5.1); Sodium Level 135 mmol/L (136-145)
[2020-02-13 12:58] LABS: BNP,B-Type NATRIURETIC PEPTIDE 25.1 pg/mL (0-100)
== END ==
PROVIDERS: PCP Family Medicine; Referring Provider Nurse Practitioner Family; Visit Provider Nurse Practitioner Family
DX: R06.00 Dyspnea, unspecified (principal); R91.1 Solitary pulmonary nodule; I10 Essential (primary) hypertension; E78.5 Hyperlipidemia, unspecified; I25.2 Old myocardial infarction; Z95.1 Presence of aortocoronary bypass graft; Z95.5 Presence of coronary angioplasty implant and graft; Z95.810 Presence of automatic (implantable) cardiac defibrillator
CPT/HCPCS: 36415; 80048; 83880; 85025

== ENCOUNTER 2020-02-13 19:15 | Observation (INO) | payer MEDICARE, SELFPAY ==
[2018-12-13 11:07] VITALS: BMI 26.3
[2020-02-13 11:29] VITALS: BMI 31.1
[2020-02-13 19:16] VITALS: BP 114/69; PULSE 97; RESP 18; TEMP 36.6; O2SAT 95; BMI 31.2
--- NOTE | 2020-02-13 19:27 | EKG12_ITS ---
Test Reason : CP Blood Pressure : / mmHG Vent. Rate : 092 BPM Atrial Rate : 092 BPM P-R Int : 164 ms QRS Dur : 142 ms QT Int : 414 ms P-R-T Axes : 051 104 072 degrees QTc Int : 511 ms Normal sinus rhythm Right bundle branch block Anterolateral infarct , age undetermined Abnormal ECG Confirmed by DAVEY SMART, BALA ([id number]), tape editor MARILUZ PAGE ([id number]) on 02/19/2020 9:24:13 AM Referred By: REGINA Confirmed By:JUAN MARISCAL MD
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
--- NOTE | 2020-02-13 19:51 | CT_ITS ---
STUDY: CTA HEAD AND NECK WITH CONTRAST REASON FOR EXAM: Male, 59 years old. Cough. Shortness of breath and dizziness. Chest tightness. Concern for vertebrobasilar dissection. History of abdominal aortic aneurysm, hypertension, hyperlipidemia and prior TIA. RADIATION DOSAGE (If Supplied By Facility): CTDIvol = ( 32.95 ) mGy, DLP = ( 1663.30 ) mGycm TECHNIQUE: CT angiography was performed with a multi-detector CT scanner. Data acquisition was obtained from the skull base through the vertex following intravenous administration of IV 100mL [id number]-[id number]. MIP images were reconstructed from the axial data set. Post-processing of the angiographic images was performed, with multiplanar reformation and 3D reconstruction. Individualized dose optimization techniques were used for this CT. COMPARISON: No relevant priors. FINDINGS: Normal bilateral petrous carotid arteries. There is ectatic elongation and tortuosity of the right cavernous carotid artery without a demonstrated hemodynamically significant stenosis. There is calcified plaque formation of the left cavernous carotid artery, without a cross-sectional luminal stenosis. Normal right A1 segments of the anterior cerebral artery. Normal left A1 segments of the anterior cerebral artery. Normal intact anterior communicating artery (ACOM). Normal bilateral A2 segments of the anterior cerebral arteries. Normal right M1 and M2 segments of the middle cerebral arteries, with a normal M1 bifurcation. Normal left M1 and M2 segments of the middle cerebral arteries, with a normal M1 bifurcation. Normal right posterior communicating artery (PCOM). There is non-visualization of the left posterior communicating artery (PCOM). Normal bilateral vertebral arteries. Normal basilar artery with a normal basilar bifurcation. The visualized bilateral superior cerebellar (SCA) arteries are normal. Normal P1, P2 and visualized P3 segments of the left posterior cerebral artery. There is an absent P1 segment of the right posterior cerebral artery. The peak to visualized P2 segments are supplied via the patent posterior communicating artery. There is no demonstrated aneurysm of the [place]. There is no demonstrated abnormality of the visualized brain. AORTIC ARCH: Mild atherosclerotic changes of the aortic arch. Normal origins of the brachiocephalic, left common carotid, and left subclavian arteries. RIGHT CAROTID ARTERIES: Normal right common carotid artery (CCA). There is minimal atherosclerotic changes at the carotid bifurcation. Normal carotid bulb Minimal calcification at the origin of the right internal carotid (ICA) artery without a hemodynamically significant stenosis. Normal visualized cervical portion of the right internal carotid artery. Normal origin of the right external carotid artery (ECA). LEFT CAROTID ARTERIES: Normal left common carotid artery (CCA). Annual calcification at the carotid bifurcation without stenosis. Normal origin of the left internal carotid (ICA) artery without a hemodynamically significant stenosis. Normal visualized cervical portion of the left internal carotid artery. Normal origin of the left external carotid artery (ECA). VERTEBRAL ARTERIES: Normal bilateral vertebral arteries. CT/CTA Head AND Neck W/ Contrast IMPRESSION: 1. Absent P1 segment of the right posterior cerebral artery. The distal vessel is supplied via the patent posterior communicating artery. 2. Otherwise normal [place]. 3. Normal vertebral and basilar arteries without dissection or stenosis. 4. Minimal hemodynamically insignificant bilateral carotid artery calcifications. Electronically Signed: Rafiq Fernando DO at 20:11 EST Tel [phone], Service support ,
--- NOTE | 2020-02-13 19:51 | RAD_ITS ---
STUDY: X-RAY CHEST REASON FOR EXAM: Male, 59 years old. Cough and dyspnea secondary to aspiration. TECHNIQUE: Single AP portable view of the chest. COMPARISON: CT of the chest, 01/19/2020. Chest, 10/20/2019. FINDINGS: The lungs are clear and expanded. There is no demonstrated pleural abnormality. Normal size heart. Stable cardiac pacemaker. Normal mediastinum and jovanni. Normal visualized pulmonary arteries. Normal visualized aortic arch and descending thoracic aorta. The thoracic spine is obscured by the mediastinum. There is degenerative osteoarthritis of the bilateral shoulders. There is no demonstrated abnormality of the visualized soft tissue structures of the upper abdomen. RAD/Chest 1 View (Portable) IMPRESSION: Cardiac pacemaker without acute cardiopulmonary disease or major interval change. Electronically Signed: Rafiq Fernando DO at 20:03 EST Tel [phone], Service support ,
[2020-02-13 19:52] LABS: Absolute Lymphocyte Count 2.35 X10^3/uL (0.83-4.51); Absolute Neutrophil Count 4.3 X10^3/uL (2.0-7.7); Basophil# 0.14 X10^3/uL; Basophil% 1.8 % (0-1); Eosinophil# 0.45 X10^3/uL; Eosinophils% 5.8 % (0-5); Hematocrit 48.6 % (40-54); Hemoglobin 16.3 g/dL (13.0-16.5); Lymphocyte # 2.35 X10^3/ul (4.0); Lymphocyte % 30.4 % (19-41); Mean Corp Hgb Conc 33.5 g/dL (32-36); Mean Corpuscular Hgb 31.1 pg (27.0-32.0); Mean Corpuscular Volume 92.7 fL (80-94); Mean Platelet Vol. 10.3 fl (6.2-12.0); Monocyte# 0.49 X10^3/uL; Monocyte% 6.3 % (0-10); NRBC Flagged by Analyzer 0 % (0-5); Neutrophil # 4.27 X10^3/uL (2.7-7.7); Neutrophil % 55.2 % (47-70); Platelet Count 206 K/mm3 (150-450); RBC Distribution Width SD 50.9 fl (35.1-43.9); Red Blood Count 5.24 M/mm3 (4.6-6.2); White Blood Count 7.7 K/mm3 (4.4-11.0)
[2020-02-13 20:04] LABS: Anion Gap 6 (5-15); BUN 18 mg/dL (7-18); BUN/Creat Ratio 11.2 RATIO (10-20); Chloride 102 mmol/L (98-107); Creatinine, Serum 1.61 mg/dL (0.70-1.30); EST Glomerular Filtration Rate 47 mL/min (>60); Est Glom Filt Rate - Afr Amer 57 mL/min (>60); Estimated Creatinine Clearance 47.33 ml/min; Glucose 119 mg/dL (74-106); Potassium 3.9 mmol/L (3.5-5.1); Sodium Level 137 mmol/L (136-145)
[2020-02-13 20:15] VITALS: BP 99/64; PULSE 82; RESP 15; O2SAT 94
[2020-02-13] MEDS: Midazolam 2 MG/2 ML Syringe IV (20:39)
[2020-02-13] MEDS: diazePAM 5 MG Tablet 2.5 MG PO (20:39)
[2020-02-13 20:45] VITALS: BP 123/76; PULSE 89; RESP 17; TEMP 36.6; O2SAT 94
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
--- NOTE | 2020-02-13 21:18 | ECHOD_ITS ---
Version 2 Reason For Study: TIA/CVA Procedure This was a 2D Doppler, Color Flow transthoracic echocardiogram. Technically difficult study. Patient was unable to stand any probe pressure on his chest due to sternum removal after CABG due to infection. Contrast injection performed. Exam performed portable in patient room. Left Ventricle Normal LV size. No evidence of intra cardiac clot. The estimated ejection fraction is 35 %. Stage 1 diastolic dysfunction. [place] : Akinetic. Right Ventricle Normal RV size. Normal systolic function. Atria Normal left atrium. Normal right atrium. No doppler evidence for ASD. Mitral Valve There is no mitral valve stenosis. Trivial mitral valve insufficiency. Tricuspid Valve There is no tricuspid stenosis. Unable to estimate RV systolic pressure due to insufficient tricuspid regurgitant envelope. Aortic Valve Trisinus/trileaflet aortic valve. There is no aortic stenosis. No aortic valve insufficiency. Pulmonic Valve There is no pulmonic valvular stenosis. No pulmonic valve insufficiency. Great Vessels Normal aortic root. Pericardium/Pleural No pericardial effusion. Medication Diluted definity 3ml given slow IV push to enhance endocardial definition. Performed a rapid injection of agitated mix of 9 cc saline and 1cc air to assess for atrial septal defect. MMode/2D Measurements & Calculations LVIDd: 5.6 cm IVSd: 0.94 cm Ao root diam: 3.6 cm LVIDs: 4.4 cm LVPWd: 1.2 cm LA dimension: 3.7 cm FS: 21.8 % LAV(MOD-bp): 42.5 ml LA A4 area: 16.9 cm2 LAV(MOD-bp) Indexed: 20.9 ml/m2 LAV(MOD-sp2): 40.5 ml LAV(MOD-sp4): 42.7 ml Time Measurements MV dec time: 0.24 sec Doppler Measurements & Calculations MV E max timmy: 71.7 cm/sec Lat Peak E' Timmy: 6.6 cm/sec Med Peak E' Timmy: 6.1 cm/sec MV A max timmy: 82.1 cm/sec E/E' lat: 10.8 E/E' med: 11.7 MV E/A: 0.87 MV V2 max: 96.6 cm/sec MV P1/2t max timmy: 91.3 cm/sec Ao V2 max: 135.1 cm/sec MV max P.7 mmHg MV P1/2t: 101.7 msec Ao max P.3 mmHg MV V2 mean: 58.8 cm/sec MV dec slope: 263.1 cm/sec2 MV mean P.6 mmHg MV V2 VTI: 28.0 cm MVA(P1/2t): 2.2 cm2 LV V1 max: 113.3 cm/sec PA V2 max: 75.7 cm/sec LV V1 max P.1 mmHg Interpretation Summary The estimated ejection fraction is 35 %. Stage 1 diastolic dysfunction. [place] : Akinetic. No evidence of intra cardiac clot The study was technically difficult. Contrast injection was performed. Ordering Physician: Shalini Marion Referring Physician: Oral Manuel Performed By: Edmar Alaniz RCS
[2020-02-13 21:20] VITALS: BMI 31.0
[2020-02-13 21:47] LABS: Magnesium 2.4 mg/dL (1.6-2.6)
[2020-02-13 22:00] VITALS: BP 113/68; PULSE 79; RESP 20; TEMP 36.5; O2SAT 96
--- NOTE | 2020-02-13 22:07 | PCS.PANDOC ---
PANDEMIC DOCUMENTATION INITIATED: Date: 02/13/2020 Time: 2111
[2020-02-13 23:05] VITALS: BMI 31.0
[2020-02-13] MEDS: 0.9% Normal Saline 1,000 ML 100 ML IV (23:16)
[2020-02-13] MEDS: 0.9% Saline Lock 10 ML Syringe IV (23:17)
[2020-02-13] MEDS: Gabapentin 600 MG Tablet 1200 MG PO (23:22)
[2020-02-13] MEDS: Pantoprazole Sodium 40 MG Tablet PO (23:22)
[2020-02-13] MEDS: Gabapentin 300 MG Capsule PO (23:22)
[2020-02-13] MEDS: Meclizine 12.5 MG Tablet PO (23:22)
[2020-02-13] MEDS: Atorvastatin Calcium 80 MG Tablet PO (23:23)
[2020-02-13] MEDS: Amitriptyline 25 MG Tablet PO (23:23)
[2020-02-13] MEDS: Ranolazine 500 MG Tablet PO (23:24)
[2020-02-13 23:27] VITALS: O2SAT 93
[2020-02-13 23:39] VITALS: PULSE 81
[2020-02-14] VITALS (14 sets, daily range): BP systolic 102–135; BP diastolic 58–89; PULSE 69–90; RESP 18–20; TEMP 36.5–36.7; O2SAT 93–96; BMI 31.0
[2020-02-14] MEDS: HYDROmorphone 0.5 MG/0.5 ML SYRINGE IV ×2 (00:38→21:55)
--- NOTE | 2020-02-14 02:41 | CPS ---
bipap not set up, does wear at home. Pt declined use of a bipap at this time
[2020-02-14] MEDS: Gabapentin 600 MG Tablet 1200 MG PO ×3 (06:21→21:58)
[2020-02-14] MEDS: Gabapentin 300 MG Capsule PO ×3 (06:21→21:58)
[2020-02-14] MEDS: Meclizine 12.5 MG Tablet PO ×3 (06:21→21:58)
[2020-02-14 06:43] LABS: Absolute Lymphocyte Count 2.67 X10^3/uL (0.83-4.51); Absolute Neutrophil Count 3.1 X10^3/uL (2.0-7.7); Basophil# 0.11 X10^3/uL; Basophil% 1.6 % (0-1); Eosinophil# 0.44 X10^3/uL; Eosinophils% 6.5 % (0-5); Hematocrit 44.3 % (40-54); Hemoglobin 14.3 g/dL (13.0-16.5); Lymphocyte # 2.67 X10^3/ul (4.0); Lymphocyte % 39.3 % (19-41); Mean Corp Hgb Conc 32.3 g/dL (32-36); Mean Corpuscular Hgb 30.4 pg (27.0-32.0); Mean Corpuscular Volume 94.3 fL (80-94); Mean Platelet Vol. 10.4 fl (6.2-12.0); Monocyte# 0.47 X10^3/uL; Monocyte% 6.9 % (0-10); NRBC Flagged by Analyzer 0 % (0-5); Neutrophil # 3.07 X10^3/uL (2.7-7.7); Neutrophil % 45.1 % (47-70); Platelet Count 182 K/mm3 (150-450); RBC Distribution Width SD 52.1 fl (35.1-43.9); White Blood Count 6.8 K/mm3 (4.4-11.0)
[2020-02-14 07:28] LABS: ALB/GLOB Ratio 1.1 RATIO (0.9-2.4); AST(SGOT) 14 U/L (15-37); Alanine Aminotransfer ALT/SGPT 25 U/L (16-61); Albumin, Serum 3.2 g/dL (3.2-5.0); Alkaline Phosphatase 99 U/L (45-117); Anion Gap 5 (5-15); BUN 17 mg/dL (7-18); BUN/Creat Ratio 13.1 RATIO (10-20); Calcium,Total 8.3 mg/dL (8.5-10.1); Chloride 102 mmol/L (98-107); Cholesterol 144 mg/dL (200); EST Glomerular Filtration Rate 60 mL/min (>60); Est Glom Filt Rate - Afr Amer 73 mL/min (>60); Estimated Creatinine Clearance 58.61 ml/min; Globulin 2.8 g/dL (2.2-4.2); Glucose 164 mg/dL (74-106); High Density Lipoprotein 23 mg/dL; Potassium 3.8 mmol/L (3.5-5.1); Sodium Level 135 mmol/L (136-145); Thyroid Stim Hormone (TSH) 1.13 uIU/mL (0.358-3.74); Triglycerides 441 mg/dL
[2020-02-14 08:01] LABS: Hemoglobin A1c 6.2 % (3.8-5.6)
[2020-02-14] MEDS: Isosorbide Mononitrate 60 MG Tablet PO (09:03)
[2020-02-14] MEDS: Aspirin E.C. 81 MG Tablet PO (09:03)
[2020-02-14] MEDS: Metoprolol(XL)Succ 50 MG Tablet PO (09:04)
[2020-02-14] MEDS: Ranolazine 500 MG Tablet PO ×2 (09:04→21:58)
[2020-02-14] MEDS: Furosemide 40 MG Tablet PO (09:04)
[2020-02-14] MEDS: Clopidogrel Bisulfate 75 MG Tablet PO (09:04)
[2020-02-14] MEDS: amLODIPine 5 MG Tablet PO (09:04)
[2020-02-14] MEDS: Pantoprazole Sodium 40 MG Tablet PO ×2 (09:04→21:58)
[2020-02-14] MEDS: Enoxaparin 40 MG/0.4 ML Syringe SC (09:06)
[2020-02-14] MEDS: 0.9% Normal Saline 1,000 ML 100 ML IV (09:09)
--- NOTE | 2020-02-14 13:40 | PN_ITS ---
Patient Problems: Active and Suspected Problems (Last Reviewed 02/12/20 @ 13:57 by Kelsey Salazar RN WOMEN SERVICES, RN WOMEN SERVICES-C) Vertigo (Acute) Reason for Visit: vertigo Subjective: With acute onset of vertigo after choking on some food. Was improved this morning and again improving this afternoon but still dizzy. Worked with therapy and he ambulated the hallways but still was feeling dizzy and unsteady. Vitals/I&O's: Vital Signs Temp Pulse Resp BP Pulse Ox 36.6 C 81 20 H 125/72 H 93 02/14/20 10:10 02/14/20 10:10 02/14/20 10:10 02/14/20 10:10 02/14/20 10:10 Oxygen Flow Rate (L/min) 2 Oxygen Delivery Method Room Air Weight: 91.8 kg Body Mass Index (BMI) 31.0 Finger Stick Blood Glucose 101 Intake and Output for Last 24 Hours 02/12/20 02/13/20 02/14/20 23:59 23:59 23:59 Intake Total 1508.33 / 1508.33 Balance 1508.33 / 1508.33 General: Alert, No apparent distress HEENT: - - Left-sided nystagmus with reproducible dizziness. Oral: Moist Mucosa, No Gingival or Mucosal Lesions/ Ulcerations Neck: No Nodes, Thyroid Normal Size and Texture Lungs: Clear to auscultation, Normal air movement, No rhonchi, No wheeze, No rales Cardiovascular: Regular rate, Regular Rhythm, Normal S1, Normal S2, No murmurs Abdomen: Bowel Sounds Present, Soft, Non Tender, Non-Distended, No Hepato- splenomegaly Extremities: No edema, No Calf Tenderness Psych/Mental Status: Appropriate, Flat Affect Laboratory Results 02/13/20 17:40: WBC 7.7, RBC 5.24, Hgb 16.3, Hct 48.6, MCV 92.7, MCH 31.1, MCHC 33.5, RDW Std Deviation 50.9 H, RDW Coeff of Jack 15.0 H, Plt Count 206, MPV 10.3, Immature Gran % (Auto) 0.500, Neut % (Auto) 55.2, Lymph % (Auto) 30.4, [place]ock[place] % (Auto) 6.3, Eos % (Auto) 5.8 H, Baso % (Auto) 1.8 H, Absolute Neuts (auto) 4.3, Absolute Lymphs (auto) 2.35, Nucleated RBC % 0 02/13/20 17:40: Sodium 137, Potassium 3.9, Chloride 102, Carbon Dioxide 29.0, Anion Gap 6, BUN 18, Creatinine 1.61 H, Estim Creat Clear Calc 47.33, Est GFR (MDRD) Af Amer 57 L, Est GFR (MDRD) Non-Af 47 L, BUN/Creatinine Ratio 11.2, Glucose 119 H, Calcium 9.0 02/13/20 17:40: Magnesium 2.4 02/14/20 05:55: WBC 6.8, RBC 4.70, Hgb 14.3, Hct 44.3, MCV 94.3 H, MCH 30.4, MCHC 32.3, RDW Std Deviation 52.1 H, RDW Coeff of Jack 15.0 H, Plt Count 182, MPV 10.4, Immature Gran % (Auto) 0.600, Neut % (Auto) 45.1 L, Lymph % (Auto) 39.3, Hocking % (Auto) 6.9, Eos % (Auto) 6.5 H, Baso % (Auto) 1.6 H, Absolute Neuts (auto) 3.1, Absolute Lymphs (auto) 2.67, Nucleated RBC % 0 02/14/20 05:55: Sodium 135 L, Potassium 3.8, Chloride 102, Carbon Dioxide 28.0, Anion Gap 5, BUN 17, Creatinine 1.30, Estim Creat Clear Calc 58.61, Est GFR (MDRD) Af Amer 73, Est GFR (MDRD) Non-Af 60, BUN/Creatinine Ratio 13.1, Glucose 164 H, Calcium 8.3 L, Total Bilirubin 0.40, AST 14 L, ALT 25, Alkaline Phosphatase 99, Total Protein 6.0 L, Albumin 3.2, Globulin 2.8, Albumin/Globulin Ratio 1.1, Triglycerides 441 H, Cholesterol 144, LDL Cholesterol TNP, VLDL Cholesterol TNP, HDL Cholesterol 23 L, TSH 1.13 02/14/20 05:55: Hemoglobin A1c 6.2 H Current Medications Al Hydroxide/Mg Hydroxide (Mag Hydrox/Al Hydrox/Simeth 30 Ml Udc) 30 ml PO Q6H PRN PRN PRN Reason: Gastric Burning Albuterol Sulfate (Albuterol 2.5 Mg/3 Ml Vial.Neb.) 2.5 mg INHALATION Q2H PRN PRN PRN Reason: Dyspnea, wheezing Amitriptyline HCl (Amitriptyline 25 Mg Tablet) 25 mg PO DAILY@2200 [facility] Last Admin: 02/13/20 23:23 Dose: 25 mg Documented by: Amlodipine Besylate (Amlodipine 5 Mg Tablet) 5 mg PO DAILY [facility] Last Admin: 02/14/20 09:04 Dose: 5 mg Documented by: Aspirin (Aspirin E.C. 81 Mg Tablet) 81 mg PO DAILY@0800 [facility] Last Admin: 02/14/20 09:03 Dose: 81 mg Documented by: Atorvastatin Calcium (Atorvastatin Calcium 80 Mg Tablet) 80 mg PO QHS [facility] Last Admin: 02/13/20 23:23 Dose: 80 mg Documented by: Clopidogrel Bisulfate (Clopidogrel Bisulfate 75 Mg Tablet) 75 mg PO DAILY [facility] Last Admin: 02/14/20 09:04 Dose: 75 mg Documented by: Enoxaparin Sodium (Enoxaparin 40 Mg/0.4 Ml Syringe) 40 mg SC DAILY [facility] Last Admin: 02/14/20 09:06 Dose: 40 mg Documented by: Furosemide (Furosemide 40 Mg Tablet) 40 mg PO DAILY [facility] Last Admin: 02/14/20 09:04 Dose: 40 mg Documented by: Gabapentin (Gabapentin 300 Mg Capsule) 300 mg PO TID [facility] Last Admin: 02/14/20 06:21 Dose: 300 mg Documented by: Gabapentin (Gabapentin 600 Mg Tablet) 1,200 mg PO TID [facility] Last Admin: 02/14/20 06:21 Dose: 1,200 mg Documented by: Guaifenesin (Guaifenesin 10 Ml Udc (200mg/10ml)) 20 ml PO Q4H PRN PRN PRN Reason: COUGH Hydralazine HCl (Hydralazine 20 Mg/Ml Vial) 10 mg IV Q4H PRN PRN PRN Reason: SBP > 160 Sodium Chloride () 250 mls @ 15 mls/hr IV .[id number] PRN PRN Reason: Saline Flush Sodium Chloride () 250 mls @ 15 mls/hr IV .[id number] PRN PRN Reason: Additional IVPB Infusion Isosorbide Mononitrate (Isosorbide Mononitrate 60 Mg Tablet) 60 mg PO DAILY [facility] Last Admin: 02/14/20 09:03 Dose: 60 mg Documented by: Lisinopril (Lisinopril 5 Mg Tablet) 5 mg PO QHS [facility] Magnesium Hydroxide (Magnesium Hydroxide 30 Ml Udc) 30 ml PO DAILY PRN PRN PRN Reason: Constipation Meclizine HCl (Meclizine 12.5 Mg Tablet) 12.5 mg PO Q8 [facility] Last Admin: 02/14/20 06:21 Dose: 12.5 mg Documented by: Melatonin (Melatonin 3 Mg Tablet) 3 mg PO QHS PRN PRN PRN Reason: INSOMNIA Metoprolol Succinate (Metoprolol(Xl)Succ 50 Mg Tablet) 50 mg PO DAILY [facility] Last Admin: 02/14/20 09:04 Dose: 50 mg Documented by: Nitroglycerin (Nitroglycerin (Inpatient Use) 0.4 Mg Tab.Subl) 0.4 mg SUBLINGUAL Q5M PRN PRN Reason: CARDIAC/CHEST PAIN Ondansetron HCl (Ondansetron 4 Mg/2 Ml Vial) 4 mg IV Q8H PRN PRN PRN Reason: NAUSEA/VOMITING Pantoprazole Sodium (Pantoprazole Sodium 40 Mg Tablet) 40 mg PO BID [facility] Last Admin: 02/14/20 09:04 Dose: 40 mg Documented by: Potassium Chloride (Potassium Chloride 20 Meq Tablet) [facility] Last Admin: 02/14/20 09:04 Dose: 20 meq Documented by: Prochlorperazine Edisylate (Prochlorperazine 10 Mg/2 Ml Vial) 5 mg IV Q4H PRN PRN PRN Reason: Breakthrough Nausea/Vomiting Psyllium Hydrophilic Mucilloid (Psyllium 1 Packet) 1 packet PO DAILY PRN PRN PRN Reason: Constipation Ranolazine (Ranolazine 500 Mg Tablet) 500 mg PO BID [facility] Last Admin: 02/14/20 09:04 Dose: 500 mg Documented by: Senna/Docusate Sodium (Senna/Docusate Sodium 1 Tablet) 2 tablet PO BID PRN PRN PRN Reason: Constipation Sodium Chloride (0.9% Saline Lock 10 Ml Syringe) 10 - 40 ml IV UD PRN PRN Reason: SALINE FLUSH Last Admin: 02/13/20 23:17 Dose: 10 ml Documented by: Throat Lozenges (Benzocaine/Menthol 1 Lozenge) 1 lozenge MUCOUS MEM Q2H PRN PRN PRN Reason: SORE THROAT STROKE Vital Signs/Narrative: Vital Signs Temp Pulse Resp BP Pulse Ox 02/14/20 10:10 36.6 C 81 20 H 125/72 H 93 Medical Necessity - Tobacco Use Smoking Status: Current every day smoker Tobacco Use: Cigarettes Assessment/Plan All Active Problems (Last Reviewed 02/12/20 @ 13:57 by Kelsey Salazar RN WOMEN SERVICES, RN WOMEN SERVICES- C) Vertigo (Acute) Lung nodule < 6cm on CT (Acute) Abdominal fullness (Acute) History of coronary angioplasty (Resolved 10/22/19) Chest pain (Resolved) 1. Acute vertigo * Overall improving * Suspected benign paroxysmal positional vertigo given acute onset and rapid improvement * Patient does have fatigue of his lateral nystagmus which goes against a posterior circulation stroke * As needed meclizine * Complicating his debility with the vertigo as his history of stroke and left- sided weakness. * Unable to have an MRI given his pacemaker which is noncompatible. Clinically I suspect that this is benign paroxysmal positional vertigo and do not feel that additional work-up is necessary at this time. 2. Coronary artery disease * On aspirin, clopidogrel, high intensity statin, metoprolol succinate and lisinopril 3. History of CVA * On dual antiplatelet therapy as well as statin 4. Debility * Seen by therapy who recommends additional therapy services. * Discussed with the patient to his on board with going somewhere for therapy short-term. * Discussed with case management. 5. VTE prophylaxis with enoxaparin. OBSV E&M: 23564 Subsequent observation care L3
--- NOTE | 2020-02-14 13:57 | CASEMGMT ---
As per physician, pt will need to go somewhere for rehab at discharge. SW met w/pt in room in regard to discharge plan. Pt is agreeable to go somewhere for rehab, describing that he is still having vertigo symptoms. SW gave pt list of nursing homes in the area with the star ratings. Pt would like to go to TCU, SW called, they will have a bed for pt tomorrow. SW let pt know this. Pt will need a COVID test prior to admission. Precert for [employer] is waived at present, they will try to get precert anyway in TCU but this will not keep pt here, he can go to TCU tomorrow. SW notified physician. GUSTABO Sahu
[2020-02-14] MEDS: Lisinopril 5 MG Tablet PO (21:58)
[2020-02-14] MEDS: Atorvastatin Calcium 80 MG Tablet PO (21:58)
[2020-02-14] MEDS: Amitriptyline 25 MG Tablet PO (21:58)
[2020-02-14] MEDS: 0.9% Saline Lock 10 ML Syringe IV (21:59)
[2020-02-15] VITALS (8 sets, daily range): BP systolic 102–114; BP diastolic 60–71; PULSE 71–79; RESP 16–18; TEMP 36.4–36.8; O2SAT 92–96
[2020-02-15] MEDS: HYDROmorphone 1 MG/ML Syringe IV (00:25)
[2020-02-15] MEDS: 0.9% Saline Lock 10 ML Syringe IV (00:26)
[2020-02-15] MEDS: Gabapentin 300 MG Capsule PO ×2 (06:19→14:03)
[2020-02-15] MEDS: Gabapentin 600 MG Tablet 1200 MG PO ×2 (06:19→14:03)
[2020-02-15] MEDS: Meclizine 12.5 MG Tablet PO ×2 (06:19→14:03)
--- NOTE | 2020-02-15 09:37 | CASEMGMT ---
Introduced role of CM to patient and LANG form explained re: Observation status for treatment of vertigo. Explained hospitalization will be paid per insurance policy for outpatient billing and condition will continue to be evaluated for inpatient necessity. Also let provided contact number for [facility] if questions arise. Discussed pharmacy section of LANG form and self-administered medication guideline. Pt verbalizes understanding, questions answered, and pt denied further concerns. Form signed and placed in chart, copy to patient. Keron Horvath RN CM
--- NOTE | 2020-02-15 10:11 | CASEMGMT ---
Addendum entered by Nichole Mcgrath 02/15/20 14:20: Social Work Return call from [facility] in TCU. Pt has been approved by both insurances to come to TCU today. Physician notified and plan is d/c today. KRISTINA met with pt and explained and he is agreeable to d/c to TCU today. Pt requesting significant other be notified. Phone call to Brit Thomson and updated on discharge dispostion. Questions answered and agreeable to d/c today. Orders faxed and Nursing updated on dc plan. GIANFRANCO Bolton Original Note: Social Work Esperanza from TCU stating that pt has been approved by insurance, however insurance is stating pt policy ends today 02/15/20. KRISTINA met with pt in room and spoke about insurance coverage. Pt stating he changed policies with [employer] and that PPO policy ends tonight and pt will start with a new [employer] HMO policy tomorrow 02/16/20. Pt does have both insurance cards with him. KRISTINA made copies of cards and returned cards to pt. Phone call to Esperanza and explained. Copy of cards faxed to [employer] who will submit for precert today with PPO and for precert to start tomorrow with HMO. KRISTINA will await return call from Esperanza with determination of insurance precert. GIANFRANCO Bolton
[2020-02-15] MEDS: Aspirin E.C. 81 MG Tablet PO (10:43)
[2020-02-15] MEDS: Isosorbide Mononitrate 60 MG Tablet PO (10:43)
[2020-02-15] MEDS: amLODIPine 5 MG Tablet PO (10:44)
[2020-02-15] MEDS: Furosemide 40 MG Tablet PO (10:44)
[2020-02-15] MEDS: Enoxaparin 40 MG/0.4 ML Syringe SC (10:44)
[2020-02-15] MEDS: Clopidogrel Bisulfate 75 MG Tablet PO (10:45)
[2020-02-15] MEDS: Ranolazine 500 MG Tablet PO (10:46)
[2020-02-15] MEDS: Pantoprazole Sodium 40 MG Tablet PO (10:46)
[2020-02-15] MEDS: Metoprolol(XL)Succ 50 MG Tablet PO (10:47)
--- NOTE | 2020-02-15 13:41 | PN_ITS ---
Patient Problems: Active and Suspected Problems (Last Reviewed 02/12/20 @ 13:57 by Kelsey Salazar DOCKMASTER, DOCKMASTER-C) Vertigo (Acute) Reason for Visit: vertigo Subjective: dizziness improved. Still complains of swelling in hands. Emesis with pills this AM. States he has had esophageal strictures and would periodically get dilations about every 6 months to a year. States that he has not had this done in 3 years. He said he is had more frequent issues with this as of late but it is intermittent but seems to be worse when he eats certain types of foods such as dry foods such as crackers or dry shredded meat. Vitals/I&O's: Vital Signs Temp Pulse Resp BP Pulse Ox 36.4 C L 71 16 114/71 92 02/15/20 09:28 02/15/20 11:12 02/15/20 09:28 02/15/20 09:28 02/15/20 09:28 Oxygen Flow Rate (L/min) 2 Oxygen Delivery Method Room Air Weight: 92.6 kg Body Mass Index (BMI) 31.0 Finger Stick Blood Glucose 101 Intake and Output for Last 24 Hours 02/13/20 02/14/20 02/15/20 23:59 23:59 23:59 Intake Total 3023.33 / 3023.33 480 / 480 Balance 3023.33 / 3023.33 480 / 480 General: Alert, No apparent distress HEENT: Atraumatic, Normocephalic Oral: Moist Mucosa, No Gingival or Mucosal Lesions/ Ulcerations Lungs: Clear to auscultation, Normal air movement, No rhonchi, No wheeze, No rales Cardiovascular: Regular rate, Regular Rhythm, Normal S1, Normal S2 Abdomen: Bowel Sounds Present, Soft, Non Tender, Non-Distended Extremities: - - Trace edema in lower extremities. No appreciable edema in his hands. Psych/Mental Status: Normal Affect, Appropriate Microbiology Past 72 Hours 02/15/20 09:40 Mucosa - Nasopharyngeal SARS-CoV-2 Antigen (Rapid) - Final Current Medications Al Hydroxide/Mg Hydroxide (Mag Hydrox/Al Hydrox/Simeth 30 Ml Udc) 30 ml PO Q6H PRN PRN PRN Reason: Gastric Burning Albuterol Sulfate (Albuterol 2.5 Mg/3 Ml Vial.Neb.) 2.5 mg INHALATION Q2H PRN PRN PRN Reason: Dyspnea, wheezing Amitriptyline HCl (Amitriptyline 25 Mg Tablet) 25 mg PO DAILY@2200 [facility] Last Admin: 02/14/20 21:58 Dose: 25 mg Documented by: Amlodipine Besylate (Amlodipine 5 Mg Tablet) 5 mg PO DAILY [facility] Last Admin: 02/15/20 10:44 Dose: 5 mg Documented by: Aspirin (Aspirin E.C. 81 Mg Tablet) 81 mg PO DAILY@0800 [facility] Last Admin: 02/15/20 10:43 Dose: 81 mg Documented by: Atorvastatin Calcium (Atorvastatin Calcium 80 Mg Tablet) 80 mg PO QHS [facility] Last Admin: 02/14/20 21:58 Dose: 80 mg Documented by: Clopidogrel Bisulfate (Clopidogrel Bisulfate 75 Mg Tablet) 75 mg PO DAILY [facility] Last Admin: 02/15/20 10:45 Dose: 75 mg Documented by: Enoxaparin Sodium (Enoxaparin 40 Mg/0.4 Ml Syringe) 40 mg SC DAILY [facility] Last Admin: 02/15/20 10:44 Dose: 40 mg Documented by: Furosemide (Furosemide 40 Mg Tablet) 40 mg PO DAILY [facility] Last Admin: 02/15/20 10:44 Dose: 40 mg Documented by: Gabapentin (Gabapentin 300 Mg Capsule) 300 mg PO TID [facility] Last Admin: 02/15/20 06:19 Dose: 300 mg Documented by: Gabapentin (Gabapentin 600 Mg Tablet) 1,200 mg PO TID [facility] Last Admin: 02/15/20 06:19 Dose: 1,200 mg Documented by: Guaifenesin (Guaifenesin 10 Ml Udc (200mg/10ml)) 20 ml PO Q4H PRN PRN PRN Reason: COUGH Hydralazine HCl (Hydralazine 20 Mg/Ml Vial) 10 mg IV Q4H PRN PRN PRN Reason: SBP > 160 Sodium Chloride () 250 mls @ 15 mls/hr IV .[id number] PRN PRN Reason: Saline Flush Sodium Chloride () 250 mls @ 15 mls/hr IV .[id number] PRN PRN Reason: Additional IVPB Infusion Isosorbide Mononitrate (Isosorbide Mononitrate 60 Mg Tablet) 60 mg PO DAILY [facility] Last Admin: 02/15/20 10:43 Dose: 60 mg Documented by: Lisinopril (Lisinopril 5 Mg Tablet) 5 mg PO QHS [facility] Last Admin: 02/14/20 21:58 Dose: 5 mg Documented by: Magnesium Hydroxide (Magnesium Hydroxide 30 Ml Udc) 30 ml PO DAILY PRN PRN PRN Reason: Constipation Meclizine HCl (Meclizine 12.5 Mg Tablet) 12.5 mg PO Q8 [facility] Last Admin: 02/15/20 06:19 Dose: 12.5 mg Documented by: Melatonin (Melatonin 3 Mg Tablet) 3 mg PO QHS PRN PRN PRN Reason: INSOMNIA Metoprolol Succinate (Metoprolol(Xl)Succ 50 Mg Tablet) 50 mg PO DAILY [facility] Last Admin: 02/15/20 10:47 Dose: 50 mg Documented by: Nitroglycerin (Nitroglycerin (Inpatient Use) 0.4 Mg Tab.Subl) 0.4 mg SUBLINGUAL Q5M PRN PRN Reason: CARDIAC/CHEST PAIN Ondansetron HCl (Ondansetron 4 Mg/2 Ml Vial) 4 mg IV Q8H PRN PRN PRN Reason: NAUSEA/VOMITING Pantoprazole Sodium (Pantoprazole Sodium 40 Mg Tablet) 40 mg PO BID [facility] Last Admin: 02/15/20 10:46 Dose: 40 mg Documented by: Potassium Chloride (Potassium Chloride 20 Meq Tablet) [facility] Admin: 02/15/20 10:43 Dose: 20 meq Documented by: Prochlorperazine Edisylate (Prochlorperazine 10 Mg/2 Ml Vial) 5 mg IV Q4H PRN PRN PRN Reason: Breakthrough Nausea/Vomiting Psyllium Hydrophilic Mucilloid (Psyllium 1 Packet) 1 packet PO DAILY PRN PRN PRN Reason: Constipation Ranolazine (Ranolazine 500 Mg Tablet) 500 mg PO BID [facility] Last Admin: 02/15/20 10:46 Dose: 500 mg Documented by: Senna/Docusate Sodium (Senna/Docusate Sodium 1 Tablet) 2 tablet PO BID PRN PRN PRN Reason: Constipation Sodium Chloride (0.9% Saline Lock 10 Ml Syringe) 10 - 40 ml IV UD PRN PRN Reason: SALINE FLUSH Last Admin: 02/15/20 00:26 Dose: 20 ml Documented by: Throat Lozenges (Benzocaine/Menthol 1 Lozenge) 1 lozenge MUCOUS MEM Q2H PRN PRN PRN Reason: SORE THROAT STROKE Vital Signs/Narrative: Vital Signs Pulse 02/15/20 11:12 71 02/15/20 10:47 75 Medical Necessity - Tobacco Use Smoking Status: Current every day smoker Tobacco Use: Cigarettes Assessment/Plan All Active Problems (Last Reviewed 02/12/20 @ 13:57 by Kelsey Salazar DOCKMASTER, DOCKMASTER- C) Vertigo (Acute) Lung nodule < 6cm on CT (Acute) Abdominal fullness (Acute) History of coronary angioplasty (Resolved 10/22/19) Chest pain (Resolved) 1. Acute vertigo * Overall improving * Suspected benign paroxysmal positional vertigo given acute onset and rapid improvement * Patient does have fatigue of his lateral nystagmus which goes against a posterior circulation stroke * As needed meclizine * Complicating his debility with the vertigo as his history of stroke and left- sided weakness. * Unable to have an MRI given his pacemaker which is noncompatible. Clinically I suspect that this is benign paroxysmal positional vertigo and do not feel that additional work-up is necessary at this time. 2. Coronary artery disease * On aspirin, clopidogrel, high intensity statin, metoprolol succinate and lisinopril 3. History of CVA * On dual antiplatelet therapy as well as statin 4. Debility * Seen by therapy who recommends additional therapy services. * Discussed with the patient to his on board with going somewhere for therapy short-term. * Discussed with case management. * Patient is having a change in his insurance plan starting February 15. Patient's current plan covers him for long term facility and just notified that his new plan will cover him at long term facility. Patient will be discharged to a long term facility today. 5. History of esophageal strictures * Patient had been seeing someone for this previously, but has not had any procedure done in about 3 years. * Patient will need to establish with someone as outpatient. 5. VTE prophylaxis with enoxaparin.
--- NOTE | 2020-02-15 13:58 | TREXTCAR_ITS ---
- Diet 02/13/20 21:18 Diet: Cardiac - Heart Healthy Food consistency:: Regular Liquid Consistency:: Regular/Thin - Routine Orders/Code Status Routine Lab Work: [facility] Code Status: Full Code - Therapies Weight Bearing: Full weight bearing Physical Therapy: Eval and Treat Occupational Therapy: Eval and Treat - Allergies/Procedures Done in Hospital Allergies/Adverse Reactions: Allergies latex Allergy (Unknown, Verified 02/13/20 19:15) unknown acetaminophen [From Darvocet-N] Allergy (Verified 02/13/20 19:15) Anaphylaxis black pepper Allergy (Verified 02/13/20 19:15) Rash SOB diphenhydramine [From Benadryl] Allergy (Verified 02/13/20 19:15) Rash NSAIDS (Non-Steroidal Anti-Inflamma Allergy (Verified 02/13/20 19:15) Anaphylaxis onion Allergy (Verified 02/13/20 19:15) Hives oxycodone [From Percocet] Allergy (Verified 02/13/20 19:15) Anaphylaxis peas Allergy (Verified 02/13/20 19:15) Rash SOB Penicillins Allergy (Verified 02/13/20 19:15) Anaphylaxis propoxyphene [From Darvocet-N] Allergy (Verified 02/13/20 19:15) Anaphylaxis hydrocodone [From Vicodin] Adverse Reaction (Mild, Verified 02/13/20 19:15) Nausea/Vom/Diarrhea Procedures: 2-D Echocardiogram - Type of Care/Length of Stay Estimated LOS: Convalescent Care Less Than 30 days Type of Care Needed: Skilled Rehab Potential: Fair Prognosis: Fair - Additional Orders/Day of Discharge Day of Discharge: 02/15/20 - Dietary and Speech Recommendations Dietitian Recommendations/Changes: Continue cardiac diet, consistency per FURNACE CHARGER. - Follow Up Care Primary Care Physician: Oral Manuel MD [Primary Care Provider] - Within 2 Weeks Please Follow Up With: Kevin Albert MD When: 04/04/2020, already scheduled Please Follow Up With: Darinel Mcallister MD When: 08/26/2020, already scheduled Please Follow Up With: general Surgery When: at your earliest convenience.
--- NOTE | 2020-02-15 14:01 | DS.PCM_ITS ---
Discharge Date and Diagnosis - Problem List Patient Problems: Active and Suspected Problems (Last Reviewed 02/12/20 @ 13:57 by Kelsey Salazar LINE RIDER, LINE RIDER-C) Vertigo (Acute) Date of Admission: 02/13/20 Date of Discharge: 02/15/20 - Primary Discharge Diagnosis Acute Problems: Active Problems (Last Reviewed 02/12/20 @ 13:57 by Kelsey Salazar LINE RIDER, LINE RIDER-C) Vertigo (Acute) - Secondary Discharge Diagnosis Chronic Problems: Chronic Problems (Last Reviewed 02/12/20 @ 13:57 by Kelsey Salazar LINE RIDER, LINE RIDER-C) Smoking greater than 40 pack years (Chronic) Peripheral vascular disease of extremity with claudication (Chronic) Esophageal stricture (Chronic) 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) CABG x3; multiple coronary artery stenting procedures (12/2006, 08/2010, 09/2014, 11/2018, 10/2019) NSTEMI (non-ST elevated myocardial infarction) (Chronic 10/23/19) 12/13/2018, 10/23/2019 Ischemic cardiomyopathy (Chronic) History of coronary artery stent placement (Chronic 12/13/18) 10/2019,ROYCE-LCx and LAD 12/2006; PCI-ROYCE-Mid LAD w/ 3.0 x 28 mm Xience overlapped with a 3.5 x 18 mm Xience Stent 09/08/2010; PCI ROYCE-Mid LCx w/ 3.0 x 33 Xience and ROYCE-Mid LAD w/ 2.5 x 33 mm Xience Stent 10/02/2014; HHR-EXB-DUP-Mid-LCx w/ 2.5 x 38 mm Promus Synergy Stent and ROYCE-Distal LAD w/ 2.25 x 20 mm Promus Synergy Stent 12/13/18; Drug-eluting stent placement for ISR of distal LAD on 10/22/2019; H/O coronary artery bypass surgery (Chronic 01/28/12) CABG x 3 LHEMAN-LAD, SVG-RPDA, SVG-LCx 01/28/2012 History of implantable cardiac defibrillator (ICD) (Chronic 09/15/17) Essential (primary) hypertension (Chronic) HLD (hyperlipidemia) (Chronic) Abdominal aortic aneurysm (AAA) (Chronic) Peripheral vascular occlusive disease (Chronic) Right femoral-tibioperoneal bypass, femoral endarterectomy w/ bovine patch angioplasty, profundoplasty 12/28/18 TIA (transient ischemic attack) (Chronic) Nicotine dependence (Chronic) COPD (chronic obstructive pulmonary disease) (Chronic) LETTY (obstructive sleep apnea) (Chronic) Bipap 27/08 Left lower lobe pulmonary nodule (Chronic) Abnormal PFT (Chronic) Small airway disease only Hospital Course and Treatment Imaging Results: Clinical Impression(s) from Imaging Studies Chest X-Ray 02/13/20 19:51 IMPRESSION: Cardiac pacemaker without acute cardiopulmonary disease or major interval change. Electronically Signed: Rafiq Fernando DO at 20:03 EST Tel [phone], Service support , Head/Neck CTA 02/13/20 19:51 IMPRESSION: 1. Absent P1 segment of the right posterior cerebral artery. The distal vessel is supplied via the patent posterior communicating artery. 2. Otherwise normal [place]. 3. Normal vertebral and basilar arteries without dissection or stenosis. 4. Minimal hemodynamically insignificant bilateral carotid artery calcifications. Electronically Signed: Rafiq Fernando DO at 20:11 EST Tel [phone], Service support , Operations: None Procedures: 2-D Echocardiogram Summary of Care Provided: The patient is a 59 year old M presents with vertigo. [place] to be related with benign paroxysmal positional vertigo as it rapidly improved. Patient still unsteady so being discharged to a longterm facility in stable condition. 1. Acute vertigo * Overall improving * Suspected benign paroxysmal positional vertigo given acute onset and rapid improvement * Patient does have fatigue of his lateral nystagmus which goes against a posterior circulation stroke * As needed meclizine * Complicating his debility with the vertigo as his history of stroke and left- sided weakness. * Unable to have an MRI given his pacemaker which is noncompatible. Clinically I suspect that this is benign paroxysmal positional vertigo and do not feel that additional work-up is necessary at this time. 2. Coronary artery disease * On aspirin, clopidogrel, high intensity statin, metoprolol succinate and lisinopril 3. History of CVA * On dual antiplatelet therapy as well as statin 4. Debility * Seen by therapy who recommends additional therapy services. * Discussed with the patient to his on board with going somewhere for therapy short-term. * Discussed with case management. * Patient is having a change in his insurance plan starting February 15. Patient's current plan covers him for longterm facility and just n otified that his new plan will cover him at longterm facility. Patient will be discharged to a longterm facility today. 5. History of esophageal strictures * Patient had been seeing someone for this previously, but has not had any procedure done in about 3 years. * Patient will need to establish with someone as outpatient.[] Patient Problems: Active and Suspected Problems (Last Reviewed 02/12/20 @ 13:57 by Kelsey Salazar LINE RIDER, LINE RIDER-C) Vertigo (Acute) - Physical Exam Vitals/I&O's: Vital Signs Temp Pulse Resp BP Pulse Ox 36.4 C L 71 16 114/71 92 02/15/20 09:28 02/15/20 11:12 02/15/20 09:28 02/15/20 09:28 02/15/20 09:28 Oxygen Flow Rate (L/min) 2 Oxygen Delivery Method Room Air Weight: 92.6 kg Body Mass Index (BMI) 31.0 Finger Stick Blood Glucose 101 Intake and Output for Last 24 Hours 02/13/20 02/14/20 02/15/20 23:59 23:59 23:59 Intake Total 3023.33 / 3023.33 480 / 480 Balance 3023.33 / 3023.33 480 / 480 General: Alert, Cooperative, No apparent distress HEENT: Atraumatic, Normocephalic Oral: Moist Mucosa, No Gingival or Mucosal Lesions/ Ulcerations Neck: No Nodes, Thyroid Normal Size and Texture Lungs: Clear to auscultation, Normal air movement, No rhonchi, No wheeze, No rales Cardiovascular: Regular rate, Regular Rhythm, Normal S1, Normal S2, No murmurs Microbiology Past 72 Hours 02/15/20 09:40 Mucosa - Nasopharyngeal SARS-CoV-2 Antigen (Rapid) - Final Current Medications Al Hydroxide/Mg Hydroxide (Mag Hydrox/Al Hydrox/Simeth 30 Ml Udc) 30 ml PO Q6H PRN PRN PRN Reason: Gastric Burning Albuterol Sulfate (Albuterol 2.5 Mg/3 Ml Vial.Neb.) 2.5 mg INHALATION Q2H PRN PRN PRN Reason: Dyspnea, wheezing Amitriptyline HCl (Amitriptyline 25 Mg Tablet) 25 mg PO DAILY@2200 [facility] Last Admin: 02/14/20 21:58 Dose: 25 mg Documented by: Amlodipine Besylate (Amlodipine 5 Mg Tablet) 5 mg PO DAILY [facility] Last Admin: 02/15/20 10:44 Dose: 5 mg Documented by: Aspirin (Aspirin E.C. 81 Mg Tablet) 81 mg PO DAILY@0800 [facility] Last Admin: 02/15/20 10:43 Dose: 81 mg Documented by: Atorvastatin Calcium (Atorvastatin Calcium 80 Mg Tablet) 80 mg PO QHS [facility] Last Admin: 02/14/20 21:58 Dose: 80 mg Documented by: Clopidogrel Bisulfate (Clopidogrel Bisulfate 75 Mg Tablet) 75 mg PO DAILY [facility] Last Admin: 02/15/20 10:45 Dose: 75 mg Documented by: Enoxaparin Sodium (Enoxaparin 40 Mg/0.4 Ml Syringe) 40 mg SC DAILY [facility] Last Admin: 02/15/20 10:44 Dose: 40 mg Documented by: Furosemide (Furosemide 40 Mg Tablet) 40 mg PO DAILY [facility] Last Admin: 02/15/20 10:44 Dose: 40 mg Documented by: Gabapentin (Gabapentin 300 Mg Capsule) 300 mg PO TID [facility] Last Admin: 02/15/20 06:19 Dose: 300 mg Documented by: Gabapentin (Gabapentin 600 Mg Tablet) 1,200 mg PO TID [facility] Last Admin: 02/15/20 06:19 Dose: 1,200 mg Documented by: Guaifenesin (Guaifenesin 10 Ml Udc (200mg/10ml)) 20 ml PO Q4H PRN PRN PRN Reason: COUGH Hydralazine HCl (Hydralazine 20 Mg/Ml Vial) 10 mg IV Q4H PRN PRN PRN Reason: SBP > 160 Sodium Chloride () 250 mls @ 15 mls/hr IV .[id number] PRN PRN Reason: Saline Flush Sodium Chloride () 250 mls @ 15 mls/hr IV .[id number] PRN PRN Reason: Additional IVPB Infusion Isosorbide Mononitrate (Isosorbide Mononitrate 60 Mg Tablet) 60 mg PO DAILY [facility] Last Admin: 02/15/20 10:43 Dose: 60 mg Documented by: Lisinopril (Lisinopril 5 Mg Tablet) 5 mg PO QHS [facility] Last Admin: 02/14/20 21:58 Dose: 5 mg Documented by: Magnesium Hydroxide (Magnesium Hydroxide 30 Ml Udc) 30 ml PO DAILY PRN PRN PRN Reason: Constipation Meclizine HCl (Meclizine 12.5 Mg Tablet) 12.5 mg PO Q8 [facility] Last Admin: 02/15/20 06:19 Dose: 12.5 mg Documented by: Melatonin (Melatonin 3 Mg Tablet) 3 mg PO QHS PRN PRN PRN Reason: INSOMNIA Metoprolol Succinate (Metoprolol(Xl)Succ 50 Mg Tablet) 50 mg PO DAILY [facility] Last Admin: 02/15/20 10:47 Dose: 50 mg Documented by: Nitroglycerin (Nitroglycerin (Inpatient Use) 0.4 Mg Tab.Subl) 0.4 mg SUBLINGUAL Q5M PRN PRN Reason: CARDIAC/CHEST PAIN Ondansetron HCl (Ondansetron 4 Mg/2 Ml Vial) 4 mg IV Q8H PRN PRN PRN Reason: NAUSEA/VOMITING Pantoprazole Sodium (Pantoprazole Sodium 40 Mg Tablet) 40 mg PO BID [facility] Last Admin: 02/15/20 10:46 Dose: 40 mg Documented by: Potassium Chloride (Potassium Chloride 20 Meq Tablet) [facility] Admin: 02/15/20 10:43 Dose: 20 meq Documented by: Prochlorperazine Edisylate (Prochlorperazine 10 Mg/2 Ml Vial) 5 mg IV Q4H PRN PRN PRN Reason: Breakthrough Nausea/Vomiting Psyllium Hydrophilic Mucilloid (Psyllium 1 Packet) 1 packet PO DAILY PRN PRN PRN Reason: Constipation Ranolazine (Ranolazine 500 Mg Tablet) 500 mg PO BID [facility] Last Admin: 02/15/20 10:46 Dose: 500 mg Documented by: Senna/Docusate Sodium (Senna/Docusate Sodium 1 Tablet) 2 tablet PO BID PRN PRN PRN Reason: Constipation Sodium Chloride (0.9% Saline Lock 10 Ml Syringe) 10 - 40 ml IV UD PRN PRN Reason: SALINE FLUSH Last Admin: 02/15/20 00:26 Dose: 20 ml Documented by: Throat Lozenges (Benzocaine/Menthol 1 Lozenge) 1 lozenge MUCOUS MEM Q2H PRN PRN PRN Reason: SORE THROAT Discharge Diet: No Restrictions Home Medications: Medications to take at Discharge Alendronate Sodium 70 mg PO QWEEK 11/07/18 Aspirin E.C. [Ecotrin] 81 mg PO DAILY@0800 11/07/18 Clopidogrel Bisulfate [Plavix] 75 mg PO DAILY 11/07/18 Gabapentin [Neurontin] 1,200 mg PO TID 11/07/18 Lisinopril 5 mg PO QHS 11/07/18 Magnesium Oxide [Magnesium] 400 mg PO DAILY 11/07/18 pantoprazole 40 mg tablet,delayed release 40 mg PO BID 11/15/18 Metoprolol(XL)Succ [Toprol Xl (Beta Shante)] 50 mg PO DAILY #30 tab 05/29/19 amlodipine 5 mg tablet 5 mg PO DAILY 06/09/19 atorvastatin 80 mg tablet 80 mg PO QHS #90 tab 07/06/19 potassium chloride 20 mEq tablet,extended release(part/cryst) 20 meq PO DAILY #90 tab 07/06/19 albuterol sulfate 0.63 mg/3 mL solution for nebulization 0.63 mg INHALATION Q4H PRN #270 ml 07/12/19 amitriptyline 25 mg tablet 25 mg PO QHS 08/17/19 isosorbide mononitrate 60 mg tablet,extended release 24 hr 60 mg PO DAILY #90 tab 11/10/19 ranolazine 500 mg tablet,extended release,12 hr 500 mg PO BID #60 tab 11/10/19 Budesonide/Formoterol 160/4.5 [Symbicort 160/4.5 Mcg Inhaler (SP)] 2 puff INHALATION BID PRN 02/13/20 Furosemide 40 mg PO BID 02/13/20 gabapentin 600 mg tablet 300 mg PO TID 02/13/20 Meclizine HCl [Antivert] 12.5 mg PO Q8 tab 02/15/20 Primary Care Physician: Oral Manuel MD [Primary Care Provider] - Within 2 Weeks Please Follow Up With: Kevin Albert MD When: 04/04/2020, already scheduled Please Follow Up With: Darinel Mcallister MD When: 08/26/2020, already scheduled Please Follow Up With: general Surgery When: at your earliest convenience. Minutes spent on discharge:: 32 Patient Condition:: Fair Medical Necessity - Tobacco Use Smoking Status: Current every day smoker Tobacco Use: Cigarettes Meaningful Use Info Meaningful Use Diagnoses (Choose all that apply): None applicable OBSV E&M: 08639 Observation care discharge
== END 2020-02-15 14:00 | disposition skilled nursing facility (03) ==
LOC: ED 20:40 → PCU 20:55
PROVIDERS: Admitting Provider Family Medicine; Emergency Provider Emergency Medicine; PCP Family Medicine
DX: R42 Dizziness and giddiness (principal); R06.00 Dyspnea, unspecified; R91.1 Solitary pulmonary nodule; E78.5 Hyperlipidemia, unspecified; I25.2 Old myocardial infarction; J44.9 Chronic obstructive pulmonary disease, unspecified; K22.2 Esophageal obstruction; I25.5 Ischemic cardiomyopathy; G47.33 Obstructive sleep apnea (adult) (pediatric); Z86.73 Personal history of transient ischemic attack (TIA), and cerebral infarction without residual deficits; I73.9 Peripheral vascular disease, unspecified; Z79.899 Other long term (current) drug therapy; Z79.02 Long term (current) use of antithrombotics/antiplatelets; Z79.82 Long term (current) use of aspirin; Z95.1 Presence of aortocoronary bypass graft; Z95.5 Presence of coronary angioplasty implant and graft; Z95.810 Presence of automatic (implantable) cardiac defibrillator; F17.210 Nicotine dependence, cigarettes, uncomplicated; I12.9 Hypertensive chronic kidney disease with stage 1 through stage 4 chronic kidney disease, or unspecified chronic kidney disease; N18.2 Chronic kidney disease, stage 2 (mild); I25.10 Atherosclerotic heart disease of native coronary artery without angina pectoris; M06.9 Rheumatoid arthritis, unspecified; K21.9 Gastro-esophageal reflux disease without esophagitis; Z79.51 Long term (current) use of inhaled steroids; R06.02 Shortness of breath; F41.8 Other specified anxiety disorders; I71.4 Abdominal aortic aneurysm, without rupture
CPT/HCPCS: 36415; 70496; 70498; 71045; 80048; 80053; 80061; 83036; 83735; 83880; 84443; 85025; 87426; 92610; 93005; 93306; 96361; 96372; 96374; 96375; 96376; 97116; 97162; 97166; 97530; 97535; 97802; 99218; 99251; 99284; J7030; Q9957; Q9967; A4216; C8929; G0378; G0463

== ENCOUNTER 2020-02-15 15:29 | Inpatient (IN) | payer MEDICARE, SELFPAY ==
[2018-12-13 11:07] VITALS: BMI 26.3
[2020-02-14 23:41] VITALS: BMI 31.0
[2020-02-15 15:44] VITALS: BP 98/60; PULSE 95; RESP 16; RESP 18; TEMP 36.4; O2SAT 93; BMI 31.3; BMI 31.4
[2020-02-15] MEDS: Furosemide 40 MG Tablet PO (18:35)
[2020-02-15] MEDS: Pantoprazole Sodium 40 MG Tablet PO (18:35)
[2020-02-15] MEDS: Ranolazine 500 MG Tablet PO (18:35)
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
[2020-02-15] MEDS: Gabapentin 600 MG Tablet 1200 MG PO (22:13)
[2020-02-15] MEDS: Meclizine 12.5 MG Tablet PO (22:13)
[2020-02-15] MEDS: Gabapentin 300 MG Capsule PO (22:13)
[2020-02-15] MEDS: Atorvastatin Calcium 80 MG Tablet PO (22:13)
[2020-02-15] MEDS: Lisinopril 5 MG Tablet PO (22:13)
[2020-02-15] MEDS: Amitriptyline 25 MG Tablet PO (22:14)
[2020-02-15] MEDS: oxyCODONE 5 MG Tablet PO (22:41)
[2020-02-16] MEDS: Fluticasone/Salmeterol 232-14 Inhaler 1 PUFF IH (05:33)
[2020-02-16] MEDS: Isosorbide Mononitrate 60 MG Tablet PO (05:34)
[2020-02-16] MEDS: Polyethylene Glycol 3350 17 GM PACKET PO (05:34)
[2020-02-16] MEDS: Pantoprazole Sodium 40 MG Tablet PO (05:34)
[2020-02-16] MEDS: Gabapentin 300 MG Capsule PO (05:34)
[2020-02-16] MEDS: Clopidogrel Bisulfate 75 MG Tablet PO (05:34)
[2020-02-16] MEDS: Meclizine 12.5 MG Tablet PO (05:34)
[2020-02-16] MEDS: Gabapentin 600 MG Tablet 1200 MG PO (05:34)
[2020-02-16 05:35] VITALS: BP 101/64; PULSE 79
[2020-02-16] MEDS: Metoprolol(XL)Succ 50 MG Tablet PO (05:35)
[2020-02-16] MEDS: Furosemide 40 MG Tablet PO (05:37)
[2020-02-16] MEDS: Senna/Docusate Sodium 1 Tablet 2 TABLET PO (05:37)
[2020-02-16] MEDS: Ranolazine 500 MG Tablet PO (05:37)
[2020-02-16] MEDS: Magnesium Chloride 64 MG Delay Rel.Tablet 128 MG PO (05:37)
[2020-02-16 06:18] LABS: Absolute Lymphocyte Count 2.15 X10^3/uL (0.83-4.51); Absolute Neutrophil Count 3.4 X10^3/uL (2.0-7.7); Basophil# 0.09 X10^3/uL; Basophil% 1.4 % (0-1); Eosinophil# 0.44 X10^3/uL; Eosinophils% 6.8 % (0-5); Hematocrit 46.1 % (40-54); Hemoglobin 15.6 g/dL (13.0-16.5); Lymphocyte # 2.15 X10^3/ul (4.0); Lymphocyte % 33.1 % (19-41); Mean Corp Hgb Conc 33.8 g/dL (32-36); Mean Corpuscular Hgb 31.6 pg (27.0-32.0); Mean Corpuscular Volume 93.3 fL (80-94); Mean Platelet Vol. 10.2 fl (6.2-12.0); Monocyte# 0.36 X10^3/uL; Monocyte% 5.5 % (0-10); NRBC Flagged by Analyzer 0 % (0-5); Neutrophil # 3.41 X10^3/uL (2.7-7.7); Neutrophil % 52.4 % (47-70); Platelet Count 187 K/mm3 (150-450); RBC Distribution Width CV 14.6 % (11.6-14.6); RBC Distribution Width SD 49.9 fl (35.1-43.9); Red Blood Count 4.94 M/mm3 (4.6-6.2); White Blood Count 6.5 K/mm3 (4.4-11.0)
[2020-02-16 06:41] LABS: Anion Gap 4 (5-15); BUN 14 mg/dL (7-18); BUN/Creat Ratio 10.1 RATIO (10-20); Calcium,Total 8.4 mg/dL (8.5-10.1); Chloride 102 mmol/L (98-107); Creatinine, Serum 1.39 mg/dL (0.70-1.30); EST Glomerular Filtration Rate 56 mL/min (>60); Est Glom Filt Rate - Afr Amer 68 mL/min (>60); Estimated Creatinine Clearance 54.82 ml/min; Glucose 173 mg/dL (74-106); Potassium 3.8 mmol/L (3.5-5.1); Sodium Level 135 mmol/L (136-145)
[2020-02-16] MEDS: amLODIPine 5 MG Tablet PO (07:17)
--- NOTE | 2020-02-16 07:17 | NURSING ---
Patient vomited at this time. Patient showed nurse pills mixed in brown fluid. Day shift charge nurse made aware.
--- NOTE | 2020-02-16 08:08 | NURSING ---
Pt having difficulty keeping food/pills down. Pt states that he has to have his esophagus stretched every once in a while d/t to food just sitting there. Stated he has not had it stretched in over 3 years Consulted Speech Therapy.
[2020-02-16] MEDS: Aspirin E.C. 81 MG Tablet PO (09:23)
--- NOTE | 2020-02-16 09:40 | NURSING ---
Notified Dr. Weber of pt unable to keep anything down, including water or medication. pt states this is d/t his esophageal strictures. Received order to send pt to the ED.
--- NOTE | 2020-02-16 12:35 | NURSING ---
Received call from ED to bring the patient's personal belongings d/t he was not going to be returning to the unit.
--- NOTE | 2020-02-16 20:52 | DCINST_ITS ---
- Discharge Diagnoses Current Active Problems: Current Active and Chronic Problems (Last Reviewed 02/12/20 @ 13:57 by Kelsey Salazar PNEUMATIC RIVETER, PNEUMATIC RIVETER-C) Debility (Acute) Dizziness (Acute) BPPV (benign paroxysmal positional vertigo) (Acute) Coronary artery disease (Chronic) Hypertension (Chronic) PAOD (peripheral arterial occlusive disease) (Chronic) Stroke (Chronic) Osteoporosis (Chronic) Hypomagnesemia syndrome (Chronic) GERD (gastroesophageal reflux disease) (Acute) Hypokalemia (Chronic) Depression (Chronic) Anxiety (Chronic) Neuropathic pain (Chronic) Tobacco abuse (Chronic) Esophageal stricture (Chronic) HLD (hyperlipidemia) (Chronic) Abdominal aortic aneurysm (AAA) (Chronic) COPD (chronic obstructive pulmonary disease) (Chronic) LETTY (obstructive sleep apnea) (Chronic) Bipap 27/08 You will use the following diet at home:: No restrictions, Regular Your food should be the consistency of: Regular Your liquids should be the consistency of: Regular/Thin Discharge Activity: Return to Normal Activity, May Shower, Use Walker Weight Bearing Status: Weight bearing as tolerated Call your doctor if you observe: Fever of 101 or Higher, Inability to urinate, Inability to have a bowel movement, Shortness of breath, Chest pain Allergies/Adverse Reactions: Allergies latex Allergy (Unknown, Verified 02/16/20 09:59) unknown acetaminophen [From Darvocet-N] Allergy (Verified 02/16/20 09:59) Anaphylaxis diphenhydramine [From Benadryl] Allergy (Verified 02/16/20 09:59) Rash NSAIDS (Non-Steroidal Anti-Inflamma Allergy (Verified 02/16/20 09:59) Anaphylaxis oxycodone [From Percocet] Allergy (Verified 02/16/20 09:59) Anaphylaxis peas Allergy (Verified 02/16/20 09:59) Rash SOB Penicillins Allergy (Verified 02/16/20 09:59) Anaphylaxis propoxyphene [From Darvocet-N] Allergy (Verified 02/16/20 09:59) Anaphylaxis hydrocodone [From Vicodin] Adverse Reaction (Mild, Verified 02/16/20 09:59) Nausea/Vom/Diarrhea peppercorn Adverse Reaction (Uncoded 02/15/20 14:10) NEEDS FOLLOW-UP Medications to take at Discharge Alendronate Sodium 70 mg PO QWEEK 11/07/18 Aspirin E.C. [Ecotrin] 81 mg PO DAILY@0800 11/07/18 Clopidogrel Bisulfate [Plavix] 75 mg PO DAILY 11/07/18 Gabapentin [Neurontin] 1,200 mg PO TID 11/07/18 Lisinopril 5 mg PO QHS 11/07/18 Magnesium Oxide [Magnesium] 400 mg PO DAILY 11/07/18 pantoprazole 40 mg tablet,delayed release 40 mg PO BID 11/15/18 amlodipine 5 mg tablet 5 mg PO DAILY 06/09/19 potassium chloride 20 mEq tablet,extended release(part/cryst) 20 meq PO DAILY #90 tab 07/06/19 albuterol sulfate 0.63 mg/3 mL solution for nebulization 0.63 mg INHALATION Q4H PRN #270 ml 07/12/19 amitriptyline 25 mg tablet 25 mg PO QHS 08/17/19 Budesonide/Formoterol 160/4.5 [Symbicort 160/4.5 Mcg Inhaler (SP)] 2 puff INHALATION BID PRN 02/13/20 Furosemide 40 mg PO BID 02/13/20 gabapentin 600 mg tablet 300 mg PO TID 02/13/20 Atorvastatin Calcium [Lipitor] 80 mg PO QHS 02/15/20 Isosorbide Mononitrate [Isosorbide Mononitrate ER] 60 mg PO DAILY 02/15/20 Meclizine HCl [Antivert] 12.5 mg PO Q8 02/15/20 Metoprolol(XL)Succ [Toprol Xl (Beta Shante)] 50 mg PO DAILY 02/15/20 Ranolazine [Ranolazine ER] 500 mg PO BID 02/15/20 Primary Care Physician: Oral Manuel MD [Primary Care Provider] - Please follow up with your Primary Care Physician in: 1 week. Test Results: Test results from this visit will be discussed in further detail at your follow- up appointment, if applicable. Please Follow Up With: Oral Manuel MD When: Within 2 weeks Please Follow Up With: Kevin Albert MD Please Follow Up With: Darinel Mcallister MD Please Follow Up With: General Surgery When: At your earliest convenience Proposed Discharge Date: 02/16/20
--- NOTE | 2020-02-16 20:53 | PCM.DC.SUM ---
Discharge Date and Diagnosis - Problem List Patient Problems: Active and Suspected Problems (Last Reviewed 02/12/20 @ 13:57 by Kelsey Salazar POWER SUPPLY ENGINEER, POWER SUPPLY ENGINEER-C) Debility (Acute) Dizziness (Acute) BPPV (benign paroxysmal positional vertigo) (Acute) GERD (gastroesophageal reflux disease) (Acute) Date of Admission: 02/15/20 Date of Discharge: 02/16/20 - Primary Discharge Diagnosis Acute Problems: Active Problems (Last Reviewed 02/12/20 @ 13:57 by Kelsey Salazar POWER SUPPLY ENGINEER, POWER SUPPLY ENGINEER-C) Debility (Acute) Dizziness (Acute) BPPV (benign paroxysmal positional vertigo) (Acute) GERD (gastroesophageal reflux disease) (Acute) - Secondary Discharge Diagnosis Chronic Problems: Chronic Problems (Last Reviewed 02/12/20 @ 13:57 by Kelsey Salazar POWER SUPPLY ENGINEER, POWER SUPPLY ENGINEER-C) Coronary artery disease (Chronic) Hypertension (Chronic) PAOD (peripheral arterial occlusive disease) (Chronic) Stroke (Chronic) Osteoporosis (Chronic) Hypomagnesemia syndrome (Chronic) Hypokalemia (Chronic) Depression (Chronic) Anxiety (Chronic) Neuropathic pain (Chronic) Tobacco abuse (Chronic) Smoking greater than 40 pack years (Chronic) Peripheral vascular disease of extremity with claudication (Chronic) Esophageal stricture (Chronic) Atherosclerosis of coronary artery bypass graft of [place] heart with angina pectoris (Chronic) CABG x3; multiple coronary artery stenting procedures (12/2006, 08/2010, 09/2014, 11/2018, 10/2019) NSTEMI (non-ST elevated myocardial infarction) (Chronic 10/23/19) 12/13/2018, 10/23/2019 Ischemic cardiomyopathy (Chronic) History of coronary artery stent placement (Chronic 12/13/18) 10/2019,ROYCE-LCx and LAD 12/2006; PCI-ROYCE-Mid LAD w/ 3.0 x 28 mm Xience overlapped with a 3.5 x 18 mm Xience Stent 09/08/2010; PCI ROYCE-Mid LCx w/ 3.0 x 33 Xience and ROYCE-Mid LAD w/ 2.5 x 33 mm Xience Stent 10/02/2014; RRD-VPX-YFX-Mid-LCx w/ 2.5 x 38 mm Promus Synergy Stent and ROYCE-Distal LAD w/ 2.25 x 20 mm Promus Synergy Stent 12/13/18; Drug-eluting stent placement for ISR of distal LAD on 10/22/2019; H/O coronary artery bypass surgery (Chronic 01/28/12) CABG x 3 LEHMAN-LAD, SVG-RPDA, SVG-LCx 01/28/2012 History of implantable cardiac defibrillator (ICD) (Chronic 09/15/17) Essential (primary) hypertension (Chronic) HLD (hyperlipidemia) (Chronic) Abdominal aortic aneurysm (AAA) (Chronic) Peripheral vascular occlusive disease (Chronic) Right femoral-tibioperoneal bypass, femoral endarterectomy w/ bovine patch angioplasty, profundoplasty 12/28/18 TIA (transient ischemic attack) (Chronic) Nicotine dependence (Chronic) COPD (chronic obstructive pulmonary disease) (Chronic) LETTY (obstructive sleep apnea) (Chronic) Bipap 27/08 Left lower lobe pulmonary nodule (Chronic) Abnormal PFT (Chronic) Small airway disease only Hospital Course and Treatment Imaging Results: 02/16/20 12:56 Diet: Clear Liquid Food consistency:: N/A - Liquid only Liquid Consistency:: Regular/Thin Is pt able to select menu?: Yes Labs (Last 48 Hours) 02/16/20 02/16/20 05:35 05:35 WBC 6.5 RBC 4.94 Hgb 15.6 Hct 46.1 MCV 93.3 MCH 31.6 MCHC 33.8 RDW Std Deviation 49.9 H RDW Coeff of Jack 14.6 Plt Count 187 MPV 10.2 Immature Gran % (Auto) 0.800 Neut % (Auto) 52.4 Lymph % (Auto) 33.1 Garrett % (Auto) 5.5 Eos % (Auto) 6.8 H Baso % (Auto) 1.4 H Absolute Neuts (auto) 3.4 Absolute Lymphs (auto) 2.15 Nucleated RBC % 0 Sodium 135 L Potassium 3.8 Chloride 102 Carbon Dioxide 29.0 Anion Gap 4 L BUN 14 Creatinine 1.39 H Estim Creat Clear Calc 54.82 Est GFR (MDRD) Af Amer 68 Est GFR (MDRD) Non-Af 56 L BUN/Creatinine Ratio 10.1 Glucose 173 H Calcium 8.4 L Operations: None Procedures: None Summary of Care Provided: The patient is a 59 year old Male with below past medical history hospitalized for dizziness secondary to BPPV, admitted to TCU with debility, here for rehabilitation, strengthening, prior to discharge home with significant other. 02/15/19 Resident was unable to eat, take pills, everything starting coming back up. Of note, resident has history of esophageal stricture, esophageal motility disorders. Discharge to [facility] Emergency Department for evaluation, admission to hospital. Dr. Lazcano performed EGD, esophagus was full of scrambled egg along with pill, food was pushed thru as much as possible. Afterwards, resident was given water, and pop, but unable to keep it down, everything came back up. He was transferred to tertiary center for evaluation of his dysphagia to consider manometry, Botox injections, esophageal pacemaker. Patient Problems: Active and Suspected Problems (Last Reviewed 02/12/20 @ 13:57 by Kelsey Salazar POWER SUPPLY ENGINEER, POWER SUPPLY ENGINEER-C) Debility (Acute) Dizziness (Acute) BPPV (benign paroxysmal positional vertigo) (Acute) GERD (gastroesophageal reflux disease) (Acute) - Physical Exam Vitals/I&O's: Vital Signs Temp Pulse Resp BP Pulse Ox 97.6 F L 79 16 101/64 93 02/15/20 15:44 02/16/20 05:35 02/15/20 15:44 02/16/20 05:35 02/15/20 15:44 Oxygen Delivery Method Room Air Weight: 90.804 kg Body Mass Index (BMI) 31.3 Finger Stick Blood Glucose 101 Intake and Output for Last 24 Hours 02/14/20 02/15/20 02/16/20 23:59 23:59 23:59 Intake Total 240 / 240 480 / 480 Balance 240 / 240 480 / 480 Laboratory Results 02/16/20 05:35: WBC 6.5, RBC 4.94, Hgb 15.6, Hct 46.1, MCV 93.3, MCH 31.6, MCHC 33.8, RDW Std Deviation 49.9 H, RDW Coeff of Jack 14.6, Plt Count 187, MPV 10.2, Immature Gran % (Auto) 0.800, Neut % (Auto) 52.4, Lymph % (Auto) 33.1, Garrett % (Auto) 5.5, Eos % (Auto) 6.8 H, Baso % (Auto) 1.4 H, Absolute Neuts (auto) 3.4, Absolute Lymphs (auto) 2.15, Nucleated RBC % 0 02/16/20 05:35: Sodium 135 L, Potassium 3.8, Chloride 102, Carbon Dioxide 29.0, Anion Gap 4 L, BUN 14, Creatinine 1.39 H, Estim Creat Clear Calc 54.82, Est GFR (MDRD) Af Amer 68, Est GFR (MDRD) Non-Af 56 L, BUN/Creatinine Ratio 10.1, Glucose 173 H, Calcium 8.4 L Discharge Diet: No Restrictions Discharge Activity: Return to Normal Activity, May Shower, Use Walker Weight Bearing Status: Weight bearing as tolerated Call your doctor if you observe: Fever of 101 or Higher, Inability to urinate, Inability to have a bowel movement, Shortness of breath, Chest pain Home Medications: Medications to take at Discharge Alendronate Sodium 70 mg PO QWEEK 11/07/18 Aspirin E.C. [Ecotrin] 81 mg PO DAILY@0800 11/07/18 Clopidogrel Bisulfate [Plavix] 75 mg PO DAILY 11/07/18 Gabapentin [Neurontin] 1,200 mg PO TID 11/07/18 Lisinopril 5 mg PO QHS 11/07/18 Magnesium Oxide [Magnesium] 400 mg PO DAILY 11/07/18 pantoprazole 40 mg tablet,delayed release 40 mg PO BID 11/15/18 amlodipine 5 mg tablet 5 mg PO DAILY 06/09/19 potassium chloride 20 mEq tablet,extended release(part/cryst) 20 meq PO DAILY #90 tab 07/06/19 albuterol sulfate 0.63 mg/3 mL solution for nebulization 0.63 mg INHALATION Q4H PRN #270 ml 07/12/19 amitriptyline 25 mg tablet 25 mg PO QHS 08/17/19 Budesonide/Formoterol 160/4.5 [Symbicort 160/4.5 Mcg Inhaler (SP)] 2 puff INHALATION BID PRN 02/13/20 Furosemide 40 mg PO BID 02/13/20 gabapentin 600 mg tablet 300 mg PO TID 02/13/20 Atorvastatin Calcium [Lipitor] 80 mg PO QHS 02/15/20 Isosorbide Mononitrate [Isosorbide Mononitrate ER] 60 mg PO DAILY 02/15/20 Meclizine HCl [Antivert] 12.5 mg PO Q8 02/15/20 Metoprolol(XL)Succ [Toprol Xl (Beta Shante)] 50 mg PO DAILY 02/15/20 Ranolazine [Ranolazine ER] 500 mg PO BID 02/15/20 Primary Care Physician: Oral Manuel MD [Primary Care Provider] - Please follow up with your Primary Care Physician in: 1 week. Please Follow Up With: Oral Manuel MD When: Within 2 weeks Please Follow Up With: Kevin Albert MD Please Follow Up With: Darinel Mcallister MD Please Follow Up With: General Surgery When: At your earliest convenience Disposition: Acute care Hospital Minutes spent on discharge:: 30 Patient Condition:: Guarded Medical Necessity - Tobacco Use Smoking Status: Light Smoker (<10/day) Tobacco Use: Cigarettes Meaningful Use Info Meaningful Use Diagnoses (Choose all that apply): None applicable
--- NOTE | 2020-02-21 12:44 | MDS.RN ---
Information for the mds was obtained from review of the clinical record, interview of resident, staff, and direct observation of resident's care.
== END 2020-02-16 09:45 | disposition short-term general hospital (02) | DRG 149 ==
LOC: TCU 15:32
PROVIDERS: Admitting Provider Family Medicine Geriatric Medicine; PCP Family Medicine; Visit Provider Family Medicine Geriatric Medicine
DX: H81.10 Benign paroxysmal vertigo, unspecified ear (principal); I50.22 Chronic systolic (congestive) heart failure; E78.5 Hyperlipidemia, unspecified; I11.0 Hypertensive heart disease with heart failure; I25.10 Atherosclerotic heart disease of native coronary artery without angina pectoris; K21.9 Gastro-esophageal reflux disease without esophagitis; E87.6 Hypokalemia; F41.9 Anxiety disorder, unspecified; F32.9 Major depressive disorder, single episode, unspecified; F17.210 Nicotine dependence, cigarettes, uncomplicated; I73.9 Peripheral vascular disease, unspecified; K22.2 Esophageal obstruction; J44.9 Chronic obstructive pulmonary disease, unspecified; G47.33 Obstructive sleep apnea (adult) (pediatric); I25.5 Ischemic cardiomyopathy; M06.9 Rheumatoid arthritis, unspecified; Z95.810 Presence of automatic (implantable) cardiac defibrillator
CPT/HCPCS: 80048; 85025; 97163; 97165

== ENCOUNTER 2020-02-16 09:53 | Emergency (ER) | payer MEDICARE, SELFPAY ==
[2018-12-13 11:07] VITALS: BMI 26.3
[2020-02-15 15:44] VITALS: BMI 31.3
[2020-02-16] VITALS (12 sets, daily range): BP systolic 89–128; BP diastolic 47–83; PULSE 67–85; RESP 14–16; TEMP 36.5; O2SAT 93–97; BMI 31.8
--- NOTE | 2020-02-16 10:21 | ED.VISSUMM ---
- ER Visit Summary Date of Service: 02/16/20 Chief Complaint: My esophagus is closing History of Present Illness: The patient is a [address] Manuel and Dr. Albert. He reports that he has difficulty swallowing because when they did his CABG they clipped the nerves to my esophagus. States that 3 years ago he had dilation of his esophagus. States that since yesterday he has been unable to swallow anything. It feels as though it builds up in my esophagus and then I vomited up. Today he try to take his pills and even those came up. On review of systems patient complains of chest pain that is been constant since 2011. He had a cough for months. He has shortness of breath and abdominal pain due to a hiatal hernia both of which are chronic. He states that he has vomited 6 times. However, he is not nauseated this is from things building up in his esophagus. No diarrhea. He denies any other complaints. Physical Examination: Vitals: Stable. Afebrile. General: Well-nourished and well-developed. Head: Normocephalic atraumatic. Neck: Supple, no lymphadenopathy. No JVD. Nontender. Cardiovascular: Regular rate and rhythm. No murmurs. Respiratory: No respiratory distress. Clear to auscultation bilaterally. Abdominal: Soft, mild epigastric tenderness to palpation, nondistended, normal bowel sounds. No guarding, rebound, or peritoneal signs. Back: Nontender. Extremities: Nontender, no edema. Skin: Normal color, no rash. Neurologic: Alert and oriented ?3. Cranial nerves II through XII are intact. Normal strength and sensation. Psych: Normal affect. Test Results: CBC shows immature granulocytes 1.1%, eosinophils of 6, basophils are 2. Chem-7 shows a glucose 121 creatinine 1.38. Creatinine is ranged between 1.11?1.61 and 2020. LFTs and lipase are normal. Emergency Department Course and Treatment: Patient had an IV placed. He is given a dose of morphine IV. He was discussed with Dr. Lazcano and had procedural sedation undertaken with ketamine, Versed, and glycopyrrolate for an endoscopy. He tolerated this well. Endoscopy did show a pill in the distal esophagus. There was a large amount of scrambled egg that was adhered to his esophagus. Following the procedure the patient drank water, but it came up approximately 30 minutes later. He then drank Pepsi and it came approximately 30 minutes later. He does not feel nauseated. He feels as though it is getting stuck in his esophagus and then coming up. Treatment Plan: The patient was discussed with [facility] and will be transferred to [facility] for further evaluation and treatment. Disposition: Transferred in stable condition. Impression: 1. Esophageal foreign body. 2. Procedural sedation. 3. Endoscopy by surgeon. This note was generated with [employer] dictation software. It may contain incorrect words, spelling, and punctuation that were not noted in review of the chart prior to signing ED Disposition - Plan for ED Patient: Instructions: ED Esophageal Foreign Body, Resolved Additional Instructions: Follow-up with the muffler mechanic as soon as possible.
[2020-02-16] MEDS: 0.9% Normal Saline 1,000 ML 1000 ML IV (10:26)
[2020-02-16] MEDS: Morphine 4 MG/ML Syringe IV ×2 (10:26→16:10)
[2020-02-16 10:46] LABS: Absolute Lymphocyte Count 1.91 X10^3/uL (0.83-4.51); Absolute Neutrophil Count 3.5 X10^3/uL (2.0-7.7); Basophil% 1.6 % (0-1); Eosinophil# 0.41 X10^3/uL; Eosinophils% 6.4 % (0-5); Hematocrit 48.6 % (40-54); Hemoglobin 16.4 g/dL (13.0-16.5); Lymphocyte # 1.91 X10^3/ul (4.0); Mean Corp Hgb Conc 33.7 g/dL (32-36); Mean Corpuscular Hgb 31.2 pg (27.0-32.0); Mean Corpuscular Volume 92.6 fL (80-94); Mean Platelet Vol. 10.3 fl (6.2-12.0); Monocyte# 0.37 X10^3/uL; Monocyte% 5.8 % (0-10); NRBC Flagged by Analyzer 0 % (0-5); Neutrophil # 3.51 X10^3/uL (2.7-7.7); Neutrophil % 55.1 % (47-70); Platelet Count 194 K/mm3 (150-450); RBC Distribution Width CV 14.6 % (11.6-14.6); Red Blood Count 5.25 M/mm3 (4.6-6.2); White Blood Count 6.4 K/mm3 (4.4-11.0)
[2020-02-16 11:03] LABS: ALB/GLOB Ratio 0.9 RATIO (0.9-2.4); AST(SGOT) 19 U/L (15-37); Alanine Aminotransfer ALT/SGPT 30 U/L (16-61); Albumin, Serum 3.8 g/dL (3.2-5.0); Alkaline Phosphatase 110 U/L (45-117); Anion Gap 3 (5-15); BUN 14 mg/dL (7-18); BUN/Creat Ratio 10.1 RATIO (10-20); Chloride 102 mmol/L (98-107); Creatinine, Serum 1.38 mg/dL (0.70-1.30); EST Glomerular Filtration Rate 56 mL/min (>60); Est Glom Filt Rate - Afr Amer 68 mL/min (>60); Estimated Creatinine Clearance 55.22 ml/min; Globulin 4.1 g/dL (2.2-4.2); Glucose 121 mg/dL (74-106); Lipase 133 U/L (73-393); Potassium 4.1 mmol/L (3.5-5.1); Protein, Total 7.9 g/dL (6.4-8.2); Sodium Level 136 mmol/L (136-145)
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
[2020-02-16] MEDS: Glycopyrrolate 0.2 MG/ML Vial 0.1 MG IV (11:22)
[2020-02-16] MEDS: Midazolam 2 MG/2 ML Syringe IV (11:24)
[2020-02-16] MEDS: Ketamine HCl 500 MG/5 ML Vial 184 MG IV (11:24)
--- NOTE | 2020-02-16 11:47 | OP.EGD_ITS ---
Patient Name: Jorge Chandler Procedure Date: 02/16/2020 11:20 AM Date of : 1960 Age: 59 Procedure: Upper GI endoscopy Indications: Dysphagia Providers: Mata Lazcano MD Medicines: Monitored Anesthesia Care Patient Profile: This is a 59 year old male. Refer to note in patient chart for documentation of history and physical. Complications: No immediate complications. Procedure: Pre-Anesthesia Assessment: - Prior to the procedure, a History and Physical was performed, and patient medications and allergies were reviewed. The patient's tolerance of previous anesthesia was also reviewed. The risks and benefits of the procedure and the sedation options and risks were discussed with the patient. All questions were answered, and informed consent was obtained. Prior Anticoagulants: The patient has taken Plavix (clopidogrel), last dose was 1 day prior to procedure. After reviewing the risks and benefits, the patient was deemed in satisfactory condition to undergo the procedure. After obtaining informed consent, the endoscope was passed under direct vision. Throughout the procedure, the patient's blood pressure, pulse, and oxygen saturations were monitored continuously. The gastroscope was introduced through the mouth, and advanced to the second part of duodenum. The upper GI endoscopy was accomplished without difficulty. The patient tolerated the procedure well. Scope In: 11:26:13 AM Scope Out: 11:32:16 AM Total Procedure Duration Time 0 hours 6 minutes 3 seconds Findings: Food was found in the entire esophagus. GE junction was traversed easily with no stricture or mass. The stomach was normal. The examined duodenum was normal. Impression: - Food in the esophagus. - Normal stomach. - Normal examined duodenum. - No specimens collected. Recommendation: - Return patient to [facility] for [facility] care. - Full liquid diet. - Continue present medications. Procedure Code(s): --- Professional --- 66951, Esophagogastroduodenoscopy, flexible, transoral; diagnostic, including collection of specimen(s) by brushing or washing, when performed (separate procedure) Diagnosis Code(s): --- Professional --- T18.128A, Food in esophagus causing other injury, initial encounter R13.10, Dysphagia, unspecified CPT copyright 2017 [employer]. All rights reserved. The codes documented in this report are preliminary and upon auditing coder review may be revised to meet current compliance requirements. Mata Lazcano MD 02/16/2020 11:47:29 AM This report has been signed electronically. Number of Addenda: 0 Note Initiated On: 02/16/2020 11:20 AM
--- NOTE | 2020-02-16 11:48 | OP.CCLET_ITS ---
02/16/2020 Oral Manuel Md Re : Upper GI endoscopy procedure for Jorge Chandler Dear Mar This procedure was performed on Sunday, February 16, 2020. My impressions and recommendations are as follows: Impressions : - Food in the esophagus. - Normal stomach. - Normal examined duodenum. - No specimens collected. Recommendations : - Return patient to [facility] for ongoing care. - Full liquid diet. - Continue present medications. My findings are described in the full procedure note, which is enclosed. If I can be of further assistance, please feel free to contact me at Doctor phone number(s): , Work: . Sincerely, Mata Lazcano MD 02/16/2020 11:47:29 AM This report has been signed electronically.
--- NOTE | 2020-02-16 11:48 | PCM.PN.BLA ---
Progress Note I performed an EGD on the patient in the emergency room. The patient had an entire esophagus full of food bolus. It was all very small pieces of food which were unable to be removed as they were too small and fragile. They are all very soft. There was a pill involved as well. I was able to traverse into the stomach very easily with no resistance. There was no stricture at the GE junction and there is no mass. I tried to push as much food as I could into the stomach but there still remained food in the esophagus at the end of the procedure. It was all soft and appeared to be the scrambled eggs that he had this morning. I recommend given the patient water once he wakes up and seeing if this washes the food down. If he is still unable to swallow that he would need transfer to a tertiary center for possible Botox injection or motility work-up. Mata Lazcano MD Pager: [facility] [address] [place] [address], [address] [place] [address] Office: [facility] Vital Signs/Narrative: Vital Signs Temp Pulse Pulse Pulse Pulse Resp Resp 02/16/20 11:24 85 84 84 16 02/16/20 11:20 75 16 02/16/20 09:55 97.7 F L 78 16 Resp Resp BP BP BP BP Pulse Ox 02/16/20 11:24 14 14 112/70 115/69 116/69 02/16/20 11:20 112/55 L 96 02/16/20 09:55 128/80 H 95
== END 2020-02-16 18:49 | disposition short-term general hospital (02) ==
PROVIDERS: Surgery; Emergency Provider Emergency Medicine; PCP Family Medicine
PROC: 0DJ08ZZ Inspection of Upper Intestinal Tract, Via Natural or Artificial Opening Endoscopic (ICD-10-PCS; CPT 43235; principal; 2020-02-16 11:00)
DX: K22.2 Esophageal obstruction (principal); T18.128A Food in esophagus causing other injury, initial encounter; R13.10 Dysphagia, unspecified; X58.XXXA Exposure to other specified factors, initial encounter; Y93.9 Activity, unspecified; Y92.9 Unspecified place or not applicable; Y99.9 Unspecified external cause status; I25.119 Atherosclerotic heart disease of native coronary artery with unspecified angina pectoris; I25.5 Ischemic cardiomyopathy; J44.9 Chronic obstructive pulmonary disease, unspecified; I10 Essential (primary) hypertension; E78.5 Hyperlipidemia, unspecified; M06.9 Rheumatoid arthritis, unspecified; I73.9 Peripheral vascular disease, unspecified; M81.0 Age-related osteoporosis without current pathological fracture; K21.9 Gastro-esophageal reflux disease without esophagitis; F32.9 Major depressive disorder, single episode, unspecified; F41.9 Anxiety disorder, unspecified; Z72.0 Tobacco use; Z79.82 Long term (current) use of aspirin; Z79.02 Long term (current) use of antithrombotics/antiplatelets; Z79.51 Long term (current) use of inhaled steroids; I25.2 Old myocardial infarction; Z86.73 Personal history of transient ischemic attack (TIA), and cerebral infarction without residual deficits; Z95.1 Presence of aortocoronary bypass graft; Z95.5 Presence of coronary angioplasty implant and graft; Z95.810 Presence of automatic (implantable) cardiac defibrillator
CPT/HCPCS: 43235; 80053; 83690; 85025; 96361; 96374; 96375; 96376; 99152; 99153; 99251; 99285; J7030; G0463

== ENCOUNTER → 2020-02-26 14:48 | Outpatient (CLI) | payer MEDICARE, SELFPAY ==
[2018-12-13 11:07] VITALS: BMI 26.3
[2020-02-16 09:55] VITALS: BMI 31.8
--- NOTE | 2020-02-26 14:53 | RAD_ITS ---
STUDY: X-RAY - THORACIC SPINE REASON FOR EXAM: Male, 59 years old. UPPER BACK PAIN TECHNIQUE: 3 view(s) of the thoracic spine were obtained. COMPARISON: None. FINDINGS: Normal kyphosis of the thoracic spine. There is no substantial scoliosis. Normal thoracic vertebrae and endplates. Normal disc space heights. The soft tissue structures are unremarkable. RAD/Thoracic Spine 3 Views IMPRESSION: Normal x-ray examination of the thoracic spine. Electronically Signed: Jorge Stephens MD at 15:48 EST Tel , Service support ,
--- NOTE | 2020-02-26 14:53 | RAD_ITS ---
STUDY: X-RAY CHEST REASON FOR EXAM: Male, 59 years old. MIDSTERNAL PAIN- HX OF STERNAL SURGERY TECHNIQUE: Single AP portable view of the chest. COMPARISON: 02/13/2020 FINDINGS: Left subclavian dual-lead AICD which is unchanged. The lungs are clear and expanded. There is no demonstrated pleural abnormality. Normal size heart. Normal mediastinum and jovanni. Normal visualized pulmonary arteries. Normal visualized aortic arch and descending thoracic aorta. Normal visualized thoracic spine. Normal visualized ribs, clavicles, and shoulders. There is no demonstrated abnormality of the visualized soft tissue structures of the upper abdomen. RAD/Chest 1 View IMPRESSION: No active disease. Electronically Signed: Jorge Stephens MD at 15:59 EST Tel , Service support ,
== END ==
PROVIDERS: PCP Family Medicine; Referring Provider Anesthesiology Pain Medicine; Visit Provider Anesthesiology Pain Medicine
DX: M54.6 Pain in thoracic spine (principal); R07.9 Chest pain, unspecified
CPT/HCPCS: 71045; 72072

== ENCOUNTER → 2020-03-07 12:08 | Outpatient (CLI) | payer MEDICARE, SELFPAY ==
[2018-12-13 11:07] VITALS: BMI 26.3
[2020-02-16 09:55] VITALS: BMI 31.8
[2020-03-07 15:06] LABS: Absolute Lymphocyte Count 2.49 X10^3/uL (0.83-4.51); Absolute Neutrophil Count 4.3 X10^3/uL (2.0-7.7); Basophil# 0.14 X10^3/uL; Basophil% 1.8 % (0-1); Eosinophil# 0.45 X10^3/uL; Eosinophils% 5.6 % (0-5); Hematocrit 50.2 % (40-54); Hemoglobin 16.7 g/dL (13.0-16.5); Lymphocyte # 2.49 X10^3/ul (4.0); Lymphocyte % 31.2 % (19-41); Mean Corp Hgb Conc 33.3 g/dL (32-36); Mean Corpuscular Hgb 30.9 pg (27.0-32.0); Mean Platelet Vol. 10.8 fl (6.2-12.0); Monocyte# 0.52 X10^3/uL; Monocyte% 6.5 % (0-10); NRBC Flagged by Analyzer 0 % (0-5); Neutrophil # 4.34 X10^3/uL (2.7-7.7); Neutrophil % 54.4 % (47-70); Platelet Count 262 K/mm3 (150-450); RBC Distribution Width CV 14.6 % (11.6-14.6)
[2020-03-07 15:19] LABS: Vitamin B12 405 pg/mL (211-911)
[2020-03-07 15:26] LABS: ALB/GLOB Ratio 0.9 RATIO (0.9-2.4); AST(SGOT) 23 U/L (15-37); Alanine Aminotransfer ALT/SGPT 47 U/L (16-61); Albumin, Serum 3.7 g/dL (3.2-5.0); Alkaline Phosphatase 107 U/L (45-117); Anion Gap 6 (5-15); BUN 17 mg/dL (7-18); Calcium,Total 9.3 mg/dL (8.5-10.1); Chloride 104 mmol/L (98-107); Creatinine, Serum 1.31 mg/dL (0.70-1.30); EST Glomerular Filtration Rate 60 mL/min (>60); Est Glom Filt Rate - Afr Amer 72 mL/min (>60); Ferritin 65 ng/mL (26-388); Globulin 3.9 g/dL (2.2-4.2); Glucose 94 mg/dL (74-106); Iron Binding Capacity,Total 337 ug/dL (250-450); Potassium 3.9 mmol/L (3.5-5.1); Protein, Total 7.6 g/dL (6.4-8.2); Sodium Level 137 mmol/L (136-145)
== END ==
PROVIDERS: PCP Family Medicine; Referring Provider Family Medicine; Visit Provider Family Medicine
DX: K62.5 Hemorrhage of anus and rectum (principal); R53.83 Other fatigue
CPT/HCPCS: 36415; 80053; 82607; 82728; 83550; 84443; 85025

== ENCOUNTER 2020-04-21 09:43 | Inpatient (IN) | payer MEDICARE, SELFPAY ==
[2018-12-13 11:07] VITALS: BMI 26.3
[2020-03-15 13:23] VITALS: BMI 30.4
[2020-04-21] VITALS (15 sets, daily range): BP systolic 105–132; BP diastolic 59–81; PULSE 65–95; RESP 14–20; TEMP 36.1–36.9; O2SAT 93–98; BMI 32.7; BMI 31.0
--- NOTE | 2020-04-21 09:48 | CT_ITS ---
STUDY: CT HEAD STROKE PROTOCOL W/O CONTRAST INJECTION REASON FOR EXAM: Male, 60 years old. Neuro deficit, acute, stroke suspected RADIATION DOSAGE (If Supplied By Facility): CTDIvol = ( ) mGy, DLP = ( ) mGycm TECHNIQUE: Transaxial CT imaging of the brain was performed without administration of intravenous contrast material. Individualized dose optimization techniques were used for this CT. COMPARISON: 05/27/2019 FINDINGS: Normal soft tissue structures. Normal calvarium. Normal size ventricles and extra-axial spaces for the patient''s age. There are areas of decreased attenuation within the white matter tracts of the supratentorial brain, consistent with microvascular disease changes. Stable left basal ganglia lacunar infarct. Otherwise negative basal ganglia and thalami. Normal brainstem. Normal cerebellum. There is no intracranial hemorrhage. There are no findings of an acute ischemic infarction. Normal visualized paranasal sinuses. CT/STROKE Brain/Head without Cont IMPRESSION: No change or acute abnormality. Mild diffuse white matter disease and chronic left lacunar infarct. N.B. : The above information has been verbally conveyed by Varun Davila MD to Curt Gilman MD, on 04/21/2020 10:20:17 (ET). Electronically Signed: Varun Davila MD at 10:22 EST , Service support ,
--- NOTE | 2020-04-21 09:48 | CT_ITS ---
STUDY: CTA HEAD AND NECK WITH CONTRAST REASON FOR EXAM: Male, 60 years old. Neuro deficit, acute, stroke suspected RADIATION DOSAGE (If Supplied By Facility): CTDIvol = ( 22.10 ) mGy, DLP = ( 740.45 ) mGycm TECHNIQUE: CT angiography was performed with a multi-detector CT scanner. Data acquisition was obtained from the skull base through the vertex following intravenous administration of . MIP images were reconstructed from the axial data set. Post-processing of the angiographic images was performed, with multiplanar reformation and 3D reconstruction. Individualized dose optimization techniques were used for this CT. COMPARISON: No relevant priors. FINDINGS: Normal bilateral petrous carotid arteries. Normal right cavernous carotid artery with a normal supraclinoid bifurcation. Normal left cavernous carotid artery with a normal supraclinoid bifurcation. Normal right A1 segments of the anterior cerebral artery. Normal left A1 segments of the anterior cerebral artery. Normal intact anterior communicating artery (ACOM). Normal bilateral A2 segments of the anterior cerebral arteries. Normal right M1 and M2 segments of the middle cerebral arteries, with a normal M1 bifurcation. Normal left M1 and M2 segments of the middle cerebral arteries, with a normal M1 bifurcation. Normal right posterior communicating artery (PCOM). Normal left posterior communicating artery (PCOM). There is a small atretic right vertebral artery with a dominant left vertebral artery. Normal basilar artery with a normal basilar bifurcation. The visualized bilateral superior cerebellar (SCA) arteries are normal. Normal bilateral P1, P2 and visualized P3 segments of the posterior cerebral arteries. There is no demonstrated aneurysm of the [place] of [place]. There is no demonstrated abnormality of the visualized brain. AORTIC ARCH: Normal visualized aortic arch. Normal origins of the brachiocephalic, left common carotid, and left subclavian arteries. RIGHT CAROTID ARTERIES: Normal right common carotid artery (CCA). Normal right common carotid bulb. Normal origin of the right internal carotid (ICA) artery without a hemodynamically significant stenosis. Normal visualized cervical portion of the right internal carotid artery. Normal origin of the right external carotid artery (ECA). LEFT CAROTID ARTERIES: Normal left common carotid artery (CCA). Normal left common carotid bulb. Normal origin of the left internal carotid (ICA) artery without a hemodynamically significant stenosis. Normal visualized cervical portion of the left internal carotid artery. Normal origin of the left external carotid artery (ECA). VERTEBRAL ARTERIES: There is enhancement within the bilateral vertebral arteries with a small right vertebral artery, and a dominant left vertebral artery. CT/STROKE CTA Head AND Neck W/Con IMPRESSION: Normal CTA Head and neck with contrast. N.B. : The above information has been verbally conveyed by Varun Davila MD to Curt Mukul on 04/21/2020 10:25:25 (ET). Electronically Signed: Varun Davila MD at 10:26 EST , Service support ,
--- NOTE | 2020-04-21 09:48 | EKG12_ITS ---
Test Reason : STROKE Blood Pressure : / mmHG Vent. Rate : 080 BPM Atrial Rate : 080 BPM P-R Int : 180 ms QRS Dur : 158 ms QT Int : 450 ms P-R-T Axes : 040 106 073 degrees QTc Int : 519 ms Normal sinus rhythm Right bundle branch block Anterolateral infarct , age undetermined Abnormal ECG Confirmed by RADHA SMART, ALISON ([id number]), editor news MARILUZ PAGE ([id number]) on 04/24/2020 10:47:10 AM Referred By: DANA Confirmed By:ALISON GARCIA MD
--- NOTE | 2020-04-21 09:48 | RAD_ITS ---
STUDY: X-RAY CHEST REASON FOR EXAM: Male, 60 years old. Neuro deficit, acute, stroke suspected TECHNIQUE: Single AP portable view of the chest. COMPARISON: 02/26/2020. FINDINGS: The lungs are clear and expanded. There is no demonstrated pleural abnormality. Normal size heart. Pacemaker is seen with leads terminating in the right atrium and right ventricle. Normal mediastinum and jovanni. Normal visualized pulmonary arteries. There is atherosclerotic tortuosity of the aortic arch and descending thoracic aorta. Normal visualized thoracic spine. Normal visualized ribs, clavicles, and shoulders. There is no demonstrated abnormality of the visualized soft tissue structures of the upper abdomen. RAD/Chest 1 View IMPRESSION: No definite acute or significant abnormality seen. Electronically Signed: Varun Davila MD at 11:00 EST , Service support ,
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
[2020-04-21 10:04] LABS: Absolute Lymphocyte Count 2.16 X10^3/uL (0.83-4.51); Absolute Neutrophil Count 3.5 X10^3/uL (2.0-7.7); Basophil# 0.12 X10^3/uL; Basophil% 1.8 % (0-1); Eosinophil# 0.47 X10^3/uL; Eosinophils% 6.9 % (0-5); Lymphocyte # 2.16 X10^3/ul (4.0); Lymphocyte % 31.9 % (19-41); Mean Corp Hgb Conc 32.7 g/dL (32-36); Mean Corpuscular Hgb 30.8 pg (27.0-32.0); Mean Corpuscular Volume 94.2 fL (80-94); Monocyte# 0.52 X10^3/uL; Monocyte% 7.7 % (0-10); NRBC Flagged by Analyzer 0 % (0-5); Neutrophil # 3.48 X10^3/uL (2.7-7.7); Neutrophil % 51.3 % (47-70); Platelet Count 194 K/mm3 (150-450); RBC Distribution Width CV 14.4 % (11.6-14.6); RBC Distribution Width SD 49.4 fl (35.1-43.9); White Blood Count 6.8 K/mm3 (4.4-11.0)
[2020-04-21 10:15] LABS: Prothrombin Time (Protime)PT. 13.1 SECONDS (11.7-14.9)
[2020-04-21 10:16] LABS: Partial Thromboplast Time 29.6 Seconds (24.1-36.2)
[2020-04-21 10:17] LABS: Anion Gap 6 (5-15); BUN 12 mg/dL (7-18); BUN/Creat Ratio 9.3 RATIO (10-20); Calcium,Total 8.9 mg/dL (8.5-10.1); Chloride 99 mmol/L (98-107); Creatinine, Serum 1.29 mg/dL (0.70-1.30); EST Glomerular Filtration Rate 61 mL/min (>60); Est Glom Filt Rate - Afr Amer 74 mL/min (>60); Estimated Creatinine Clearance 58.36 ml/min; Glucose 144 mg/dL (74-106); Potassium 3.9 mmol/L (3.5-5.1); Sodium Level 137 mmol/L (136-145)
[2020-04-21] MEDS: Morphine 4 MG/ML Syringe IV (11:25)
[2020-04-21] MEDS: Clopidogrel Bisulfate 75 MG Tablet PO (11:25)
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
--- NOTE | 2020-04-21 12:04 | TELEMED_ITS ---
[facility] Telemed has confirmed receipt of a request for visit. This document confirms receipt of the order initiating the consult. To find the results of the consultation, please view the patient's reports for the scanned Telemed Consult.
[2020-04-21] MEDS: 0.9% Normal Saline 1,000 ML 75 ML IV (13:39)
[2020-04-21] MEDS: Gabapentin 600 MG Tablet PO ×3 (13:41→21:27)
[2020-04-21] MEDS: HYDROmorphone 1 MG/ML Syringe IV ×2 (14:39→20:02)
[2020-04-21] MEDS: oxyCODONE 5 MG Tablet 10 MG PO ×2 (16:20→22:22)
[2020-04-21] MEDS: Furosemide 40 MG Tablet PO (17:48)
[2020-04-21] MEDS: Budesonide Respules 0.5 MG/2 ML AMPUL.NEB. INHALATION (20:20)
[2020-04-21] MEDS: Albuterol 2.5 MG/3 ML VIAL.NEB. INHALATION (20:21)
[2020-04-21] MEDS: Zolpidem Tartrate 5 MG Tablet PO (21:27)
[2020-04-21] MEDS: Pantoprazole Sodium 40 MG Tablet PO (21:28)
[2020-04-21] MEDS: Atorvastatin Calcium 80 MG Tablet PO (21:28)
[2020-04-21] MEDS: Ranolazine 500 MG Tablet PO (21:28)
[2020-04-21] MEDS: Amitriptyline 25 MG Tablet PO (21:28)
[2020-04-21] MEDS: Lisinopril 5 MG Tablet PO (21:29)
[2020-04-22] VITALS (16 sets, daily range): BP systolic 95–128; BP diastolic 53–75; PULSE 71–100; RESP 14–18; TEMP 36.4–37.1; O2SAT 93–97
[2020-04-22] MEDS: Albuterol 2.5 MG/3 ML VIAL.NEB. INHALATION ×3 (00:12→13:22)
[2020-04-22] MEDS: HYDROmorphone 1 MG/ML Syringe IV ×3 (04:18→13:26)
[2020-04-22 05:46] LABS: Absolute Neutrophil Count 3.8 X10^3/uL (2.0-7.7); Basophil# 0.07 X10^3/uL; Eosinophil# 0.36 X10^3/uL; Eosinophils% 5.2 % (0-5); Hematocrit 45.2 % (40-54); Hemoglobin 14.6 g/dL (13.0-16.5); Mean Corp Hgb Conc 32.3 g/dL (32-36); Mean Corpuscular Hgb 30.7 pg (27.0-32.0); Mean Corpuscular Volume 95.2 fL (80-94); Mean Platelet Vol. 10.3 fl (6.2-12.0); Monocyte# 0.44 X10^3/uL; Monocyte% 6.4 % (0-10); NRBC Flagged by Analyzer 0 % (0-5); Neutrophil # 3.77 X10^3/uL (2.7-7.7); Platelet Count 173 K/mm3 (150-450); RBC Distribution Width CV 14.2 % (11.6-14.6); RBC Distribution Width SD 50.5 fl (35.1-43.9); Red Blood Count 4.75 M/mm3 (4.6-6.2); White Blood Count 6.9 K/mm3 (4.4-11.0)
--- NOTE | 2020-04-22 05:55 | CT_ITS ---
STUDY: CT BRAIN WITHOUT CONTRAST REASON FOR EXAM: Male, 60 years old. Facial droop, left-sided weakness. MRI contraindicated due to presence of cardiac pacemaker. RADIATION DOSAGE (If Supplied By Facility): CTDIvol = ( 44.99 ) mGy, DLP = ( 812.98 ) mGycm TECHNIQUE: Transaxial CT imaging of the brain was performed without administration of intravenous contrast material. Individualized dose optimization techniques were used for this CT. COMPARISON: May 27, 2019. FINDINGS: Normal soft tissue structures. Normal calvarium. Normal size ventricles and extra-axial spaces for the patient''s age. Normal white matter tracts of the cerebral hemispheres. Old lacunar infarction left lentiform nucleus. Normal thalami. Normal brainstem. Normal cerebellum. Partially empty sella. There is no intracranial hemorrhage. There are no findings of an acute ischemic infarction. Normal visualized paranasal sinuses. CT/Brain/Head without Contrast IMPRESSION: Stable head CT, no acute intracranial abnormality. Old left basal ganglia lacunar infarction. Electronically Signed: Jamar Kong MD at 6:52 EST , Service support ,
[2020-04-22 05:56] LABS: Anion Gap 6 (5-15); BUN 13 mg/dL (7-18); BUN/Creat Ratio 10.2 RATIO (10-20); Calcium,Total 8.3 mg/dL (8.5-10.1); Chloride 101 mmol/L (98-107); Creatinine, Serum 1.27 mg/dL (0.70-1.30); EST Glomerular Filtration Rate 62 mL/min (>60); Est Glom Filt Rate - Afr Amer 75 mL/min (>60); Estimated Creatinine Clearance 59.28 ml/min; Glucose 159 mg/dL (74-106); Potassium 3.7 mmol/L (3.5-5.1); Sodium Level 135 mmol/L (136-145)
[2020-04-22] MEDS: oxyCODONE 5 MG Tablet 10 MG PO ×2 (06:45→15:46)
[2020-04-22] MEDS: Budesonide Respules 0.5 MG/2 ML AMPUL.NEB. INHALATION (06:54)
[2020-04-22] MEDS: Aspirin E.C. 81 MG Tablet PO (09:10)
[2020-04-22] MEDS: Potassium Chloride Oral Tablet 20 MEQ PO (09:10)
[2020-04-22] MEDS: Metoprolol(XL)Succ 50 MG Tablet PO (09:13)
[2020-04-22] MEDS: Isosorbide Mononitrate 60 MG Tablet PO (09:14)
[2020-04-22] MEDS: Clopidogrel Bisulfate 75 MG Tablet PO (09:14)
[2020-04-22] MEDS: Gabapentin 600 MG Tablet PO ×2 (09:14→13:26)
[2020-04-22] MEDS: Ranolazine 500 MG Tablet PO (09:14)
[2020-04-22] MEDS: Furosemide 40 MG Tablet PO (09:14)
[2020-04-22] MEDS: amLODIPine 2.5 MG Tablet PO (09:15)
[2020-04-22] MEDS: Pantoprazole Sodium 40 MG Tablet PO (09:15)
[2020-04-22] MEDS: Enoxaparin 40 MG/0.4 ML Syringe SC (09:16)
[2020-04-22] MEDS: 0.9% Saline Lock 10 ML Syringe IV ×2 (09:17→13:27)
--- NOTE | 2020-04-22 10:35 | CASEMGMT ---
SW completed a PHQ 9 with patient as he may have had a Stroke or TIA. He scored a 3 which indicates minimal depression. He declined list of counseling resources. SW then spoke with patient about his discharge plan. SW asked if he feels like he will be okay to go home at discharge. He said, No. SW asked if he thinks he will need to go somewhere for rehab. He said, Yes. He apparently went to rehab after a stroke when he lived in [place]. SW gave patient a list of [facility] providers including quality and resource use data and consistent with the patient?s preferred geographic region, medical needs, and insurance network. He asked if there was a unit at [facility]. KRISTINA told him there are 2 units. He said he thinks he went there before. KRISTINA told him SW can check on bed availability, but he should look at the list just in case TCU is not an option. KRISTINA called [facility] and TCU would have a bed for patient. Await PT/OT evaluations to see their recommendation. Jacqueline SZYMANSKI MACHINE FEEDER
--- NOTE | 2020-04-22 15:21 | CASEMGMT ---
Addendum entered by Jacqueline Jaquez 04/22/20 15:59: SW received a call from Sandra with [facility] and they can take patient. They will plan on start of care for Wed. SW will let patient know this information and that someone from home health will call him. Plan:d/c to home with [facility] detention, PT, and OT. Also, [place] got [place] [facility] Jacqueilne SZYMANSKI AMUSEMENT PARK WORKER Original Note: SW spoke with therapy and they are recommend home with home health and a wheeled walker. SW then spoke with patient and his significant other. They were in agreement with home with home health. Patient and his significant other were provided a list of HH and DME providers including quality and resource use data and consistent with the patient?s preferred geographic region, medical needs, and insurance network. Patient wants [facility] home health and [facility] [place] his walk[place]. SW called [facility] and made a referral. Await their response. SW also faxed prescription for wheeled walker to [facility]. KRISTINA updated patient's RN to let him know that plan is home with home health. Plan: Home with home health and a wheeled walker. Awaiting [facility]'s response. Jacqueline SZYMANSKI AMUSEMENT PARK WORKER
--- NOTE | 2020-04-22 15:27 | DCINST_ITS ---
- Discharge Diagnoses Current Active Problems: Current Active and Chronic Problems (Last Reviewed 03/15/20 @ 13:33 by Hortencia Perales) Coronary artery disease (Chronic) Hypertension (Chronic) PAOD (peripheral arterial occlusive disease) (Chronic) Stroke (Chronic) GERD (gastroesophageal reflux disease) (Chronic) Depression (Chronic) Anxiety (Chronic) Ischemic cardiomyopathy (Chronic) Reason(s) for Visit for Discharge Instructions: Stroke You will use the following diet at home:: No restrictions Your food should be the consistency of: Regular Your liquids should be the consistency of: Regular/Thin Discharge Activity: Return to Normal Activity Allergies/Adverse Reactions: Allergies latex Allergy (Unknown, Verified 04/21/20 10:13) unknown acetaminophen [From Darvocet-N] Allergy (Verified 04/21/20 10:13) Anaphylaxis diphenhydramine [From Benadryl] Allergy (Verified 04/21/20 10:13) Rash NSAIDS (Non-Steroidal Anti-Inflamma Allergy (Verified 04/21/20 10:13) Anaphylaxis oxycodone [From Percocet] Allergy (Verified 04/21/20 10:13) Anaphylaxis peas Allergy (Verified 04/21/20 10:13) Rash SOB Penicillins Allergy (Verified 04/21/20 10:13) Anaphylaxis propoxyphene [From Darvocet-N] Allergy (Verified 04/21/20 10:13) Anaphylaxis hydrocodone [From Vicodin] Adverse Reaction (Mild, Verified 04/21/20 10:13) Nausea/Vom/Diarrhea peppercorn Adverse Reaction (Uncoded 04/21/20 10:13) NEEDS FOLLOW-UP Medications to take at Discharge Aspirin E.C. [Ecotrin] 81 mg PO DAILY@0800 11/07/18 Clopidogrel Bisulfate [Plavix] 75 mg PO DAILY 11/07/18 Lisinopril 5 mg PO QHS 11/07/18 Magnesium Oxide [Magnesium] 400 mg PO DAILY 11/07/18 pantoprazole 40 mg tablet,delayed release 40 mg PO BID 11/15/18 potassium chloride 20 mEq tablet,extended release(part/cryst) 20 meq PO DAILY #90 tab 07/06/19 albuterol sulfate 0.63 mg/3 mL solution for nebulization 0.63 mg INHALATION Q4H PRN #270 ml 07/12/19 amitriptyline 25 mg tablet 25 mg PO QHS 08/17/19 Budesonide/Formoterol 160/4.5 [Symbicort 160/4.5 Mcg Inhaler (SP)] 2 puff INHALATION BID PRN 02/13/20 Furosemide 40 mg PO BID 02/13/20 Atorvastatin Calcium [Lipitor] 80 mg PO QHS 02/15/20 Isosorbide Mononitrate [Isosorbide Mononitrate ER] 60 mg PO DAILY 02/15/20 Metoprolol(XL)Succ [Toprol Xl (Beta Shante)] 50 mg PO DAILY 02/15/20 Ranolazine [Ranolazine ER] 500 mg PO BID 02/15/20 alendronate 70 mg tablet 70 mg PO QWEEK tab 03/15/20 amlodipine 5 mg tablet 2.5 mg PO DAILY tab 03/15/20 gabapentin 600 mg tablet 600 mg PO 4X/DAY tab 03/15/20 Oxycodone [Oxyfast] 5 mg PO Q6H PRN PRN 2 Days #10 ml 04/22/20 The following prescriptions were given: Oxycodone [Oxyfast] 5 mg PO Q6H PRN PRN 2 Days #10 ml PRN Reason: Chronic pain Transmission Status: Received by [facility] Primary Care Physician: Oral Manuel MD [Primary Care Provider] - Please follow up with your Primary Care Physician in: Within the next week Test Results: Test results from this visit will be discussed in further detail at your follow- up appointment, if applicable. Proposed Discharge Date: 04/22/20
--- NOTE | 2020-04-22 15:30 | PCM.DC.SUM ---
<Oral Mondragon - Last Filed: 04/22/20 15:30> Discharge Date and Diagnosis Date of Admission: 04/21/20 Date of Discharge: 04/22/20 - Primary Discharge Diagnosis Acute Problems: Acute stroke - Secondary Discharge Diagnosis Chronic Problems: Chronic Problems (Last Reviewed 03/15/20 @ 13:33 by Hortencia Perales) Coronary artery disease (Chronic) Hypertension (Chronic) PAOD (peripheral arterial occlusive disease) (Chronic) Stroke (Chronic) Osteoporosis (Chronic) Hypomagnesemia syndrome (Chronic) GERD (gastroesophageal reflux disease) (Chronic) Depression (Chronic) Anxiety (Chronic) Neuropathic pain (Chronic) Tobacco abuse (Chronic) Lung nodule < 6cm on CT (Chronic) Smoking greater than 40 pack years (Chronic) Peripheral vascular disease of extremity with claudication (Chronic) Esophageal stricture (Chronic) 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) CABG x3; multiple coronary artery stenting procedures (12/2006, 08/2010, 09/2014, 11/2018, 10/2019) NSTEMI (non-ST elevated myocardial infarction) (Chronic 10/23/19) 12/13/2018, 10/23/2019 Ischemic cardiomyopathy (Chronic) History of coronary angioplasty (Chronic 10/22/19) Successful cutting balloon angioplasty to ISR of Distal-LAD History of coronary artery stent placement (Chronic 12/13/18) 10/2019,ROYCE-LCx and LAD 12/2006; PCI-ROYCE-Mid LAD w/ 3.0 x 28 mm Xience overlapped with a 3.5 x 18 mm Xience Stent 09/08/2010; PCI ROYCE-Mid LCx w/ 3.0 x 33 Xience and ROYCE-Mid LAD w/ 2.5 x 33 mm Xience Stent 10/02/2014; GIX-FUY-QIS-Mid-LCx w/ 2.5 x 38 mm Promus Synergy Stent and ROYCE-Distal LAD w/ 2.25 x 20 mm Promus Synergy Stent 12/13/18; Drug-eluting stent placement for ISR of distal LAD on 10/22/2019; H/O coronary artery bypass surgery (Chronic 01/28/12) CABG x 3 LEHMAN-LAD, SVG-RPDA, SVG-LCx 01/28/2012 History of implantable cardiac defibrillator (ICD) (Chronic 09/15/17) Essential (primary) hypertension (Chronic) HLD (hyperlipidemia) (Chronic) Abdominal aortic aneurysm (AAA) (Chronic) Peripheral vascular occlusive disease (Chronic) Right femoral-tibioperoneal bypass, femoral endarterectomy w/ bovine patch angioplasty, profundoplasty 12/28/18 TIA (transient ischemic attack) (Chronic) Nicotine dependence (Chronic) COPD (chronic obstructive pulmonary disease) (Chronic) LETTY (obstructive sleep apnea) (Chronic) Bipap 27/08 Left lower lobe pulmonary nodule (Chronic) Abnormal PFT (Chronic) Small airway disease only Hospital Course and Treatment Imaging Results: Clinical Impression(s) from Imaging Studies Brain CT 04/21/20 09:48 IMPRESSION: No change or acute abnormality. Mild diffuse white matter disease and chronic left lacunar infarct. N.B. : The above information has been verbally conveyed by Varun Davila MD to Curt Gilman MD, on 04/21/2020 10:20:17 (ET). Electronically Signed: Varun Davila MD at 10:22 EST , Service support , ADDENDUM: 04/21/20 1029 IMPRESSION: No change or acute abnormality. Mild diffuse white matter disease and chronic left lacunar infarct. N.B. : The above information has been verbally conveyed by Varun Davila MD to Curt Gilman MD, on 04/21/2020 10:20:17 (ET). Electronically Signed: Varun Davila MD at 10:22 EST , Service support , Chest X-Ray 04/21/20 09:48 IMPRESSION: No definite acute or significant abnormality seen. Electronically Signed: Varun Davila MD at 11:00 EST , Service support , Head/Neck CTA 04/21/20 09:48 IMPRESSION: Normal CTA Head and neck with contrast. N.B. : The above information has been verbally conveyed by Varun Davila MD to Curt Gilman on 04/21/2020 10:25:25 (ET). Electronically Signed: Varun Davila MD at 10:26 EST , Service support , ADDENDUM: 04/21/20 1033 IMPRESSION: Normal CTA Head and neck with contrast. N.B. : The above information has been verbally conveyed by Varun Davila MD to Curt Gilman on 04/21/2020 10:25:25 (ET). Electronically Signed: Varun Davila MD at 10:26 EST , Service support , Brain CT 04/22/20 05:55 IMPRESSION: Stable head CT, no acute intracranial abnormality. Old left basal ganglia lacunar infarction. Electronically Signed: Jamar Kong MD at 6:52 EST , Service support , SOC Tele-neurology consulted Operations: None Summary of Care Provided: This is a 60-year-old male who presented to the emergency room on 04/21/2020 with a chief complaint of left shoulder/left-sided chest pain, strokelike symptoms and was admitted for evaluation and treatment. Patient self-reported to multiple strokes in the past. Two CT's of the brain showed no acute findings. CT-A of the head and neck was unremarkable. EKG revealed normal sinus rhythm with right bundle branch block, no acute findings. Due to patient pacemaker, MRI could not be done. SOC tele-neurology consult ordered. Given patient history and symptoms, neurologist concluded that this clinical presentation was consistent with lacunar infarct. No further medical recommendations were made as the patient is already on good secondary stroke prevention regimen. 1) Stroke Assessment - No MRI ordered due to contraindication none ? Repeat CTs showed no acute findings - CT?a of the head and neck was unremarkable - SOC tele-neurology: Patient presentation consistent with lacunar infarct Plan - Continue on current regimen of aspirin and Plavix - Smoking cessation encouraged - Wheeled walker ordered per therapy recommendation 2) CAD s/p CABG and stents Assessment -EKG unremarkable -Troponins negative Plan - Continue on current regimen of Aspirin and Plavix - Smoking cessation encouraged - Continue outpatient management of metoprolol, isosorbide mononitrate, ranolazine, statin. 3) Left shoulder pain/left-sided chest pain Assessment - ACS work-up unremarkable - Patient does not have sternum and is very sensitive to the anterior chest area - Believed to be chronic musculoskeletal pain - Patient is coordinating with his primary care provider for outpatient pain management Plan - Outpatient pain management scheduled for next week -Oxycodone 5 mg p.o. prescription written for 2 days DVT prophylaxis: Lovenox TN Patient seen by Oral Mondragon PA-C, under the supervision of Dr. Penn. Subjective: Patient is a 60-year-old male who is lying in bed. Patient does seem to be uncomfortable, however this is his baseline. Objective: Laboratory Tests Past 24 Hrs 04/21/20 04/22/20 04/22/20 16:00 05:28 05:28 WBC 6.9 RBC 4.75 Hgb 14.6 Hct 45.2 MCV 95.2 H MCH 30.7 MCHC 32.3 RDW Std Deviation 50.5 H RDW Coeff of Jack 14.2 Plt Count 173 MPV 10.3 Immature Gran % (Auto) 0.400 Neut % (Auto) 55.0 Lymph % (Auto) 32.0 Cuming % (Auto) 6.4 Eos % (Auto) 5.2 H Baso % (Auto) 1.0 Absolute Neuts (auto) 3.8 Absolute Lymphs (auto) 2.20 Nucleated RBC % 0 Sodium 135 L Potassium 3.7 Chloride 101 Carbon Dioxide 28.0 Anion Gap 6 BUN 13 Creatinine 1.27 Estim Creat Clear Calc 59.28 Est GFR (MDRD) Af Amer 75 Est GFR (MDRD) Non-Af 62 BUN/Creatinine Ratio 10.2 Glucose 159 H Calcium 8.3 L Troponin I < 0.015 - Physical Exam Vitals/I&O's: Vital Signs Temp Pulse Resp BP Pulse Ox 97.9 F 84 18 117/59 L 94 04/22/20 09:20 04/22/20 15:00 04/22/20 13:22 04/22/20 09:20 04/22/20 09:20 Oxygen Flow Rate (L/min) 2 Oxygen Delivery Method Room Air Weight: 198 lb 3.129 oz Body Mass Index (BMI) 31.0 Finger Stick Blood Glucose 167 Intake and Output for Last 24 Hours 04/20/20 04/21/20 04/22/20 23:59 23:59 23:59 Intake Total 880 / 1180 1979 / 1979 Output Total 1200 / 1200 Balance 880 / 780 780 / 780 General: Alert, Oriented x3, Cooperative HEENT: Atraumatic, PERRLA, EOMI, Normocephalic Neck: Supple, No JVD, Negative Carotid Bruits Lungs: Clear to auscultation, Normal air movement, - - Sensitive anterior chest. Absent sternum Cardiovascular: Regular rate, No murmurs Abdomen: Bowel Sounds Present, Soft, Non Tender, - - Bruise in the right lower quadrant Extremities: No edema, Capillary Refill Less than 3 Seconds Skin: No rashes, No breakdown Musculoskeletal: No Tenderness to Palpation of Joints or Extremities Neurological: Cranial nerves II-XII grossly intact Psych/Mental Status: Normal Affect, Appropriate Laboratory Results 04/21/20 16:00: Troponin I < 0.015 04/22/20 05:28: WBC 6.9, RBC 4.75, Hgb 14.6, Hct 45.2, MCV 95.2 H, MCH 30.7, MCHC 32.3, RDW Std Deviation 50.5 H, RDW Coeff of Jack 14.2, Plt Count 173, MPV 10.3, Immature Gran % (Auto) 0.400, Neut % (Auto) 55.0, Lymph % (Auto) 32.0, Cuming % (Auto) 6.4, Eos % (Auto) 5.2 H, Baso % (Auto) 1.0, Absolute Neuts (auto) 3.8, Absolute Lymphs (auto) 2.20, Nucleated RBC % 0 04/22/20 05:28: Sodium 135 L, Potassium 3.7, Chloride 101, Carbon Dioxide 28.0, Anion Gap 6, BUN 13, Creatinine 1.27, Estim Creat Clear Calc 59.28, Est GFR (MDRD) Af Amer 75, Est GFR (MDRD) Non-Af 62, BUN/Creatinine Ratio 10.2, Glucose 159 H, Calcium 8.3 L Current Medications Albuterol Sulfate (Albuterol 2.5 Mg/3 Ml Vial.Neb.) 2.5 mg INHALATION Q6HWA.RT [facility] Last Admin: 04/22/20 13:22 Dose: 2.5 mg Documented by: Albuterol Sulfate (Albuterol 2.5 Mg/3 Ml Vial.Neb.) 2.5 mg INHALATION Q4H PRN PRN PRN Reason: Shortness of breath, wheezing Last Admin: 04/22/20 00:12 Dose: 2.5 mg Documented by: Amitriptyline HCl (Amitriptyline 25 Mg Tablet) 25 mg PO QHS [facility] Last Admin: 04/21/20 21:28 Dose: 25 mg Documented by: Amlodipine Besylate (Amlodipine 2.5 Mg Tablet) 2.5 mg PO DAILY [facility] Last Admin: 04/22/20 09:15 Dose: 2.5 mg Documented by: Aspirin (Aspirin E.C. 81 Mg Tablet) 81 mg PO DAILY@0800 [facility] Last Admin: 04/22/20 09:10 Dose: 81 mg Documented by: Atorvastatin Calcium (Atorvastatin Calcium 80 Mg Tablet) 80 mg PO QHS [facility] Last Admin: 04/21/20 21:28 Dose: 80 mg Documented by: Budesonide (Budesonide Respules 0.5 Mg/2 Ml Ampul.Neb.) 0.5 mg INHALATION Q12H.RT [facility] Last Admin: 04/22/20 06:54 Dose: 0.5 mg Documented by: Clopidogrel Bisulfate (Clopidogrel Bisulfate 75 Mg Tablet) 75 mg PO DAILY [facility] Last Admin: 04/22/20 09:14 Dose: 75 mg Documented by: Enoxaparin Sodium (Enoxaparin 40 Mg/0.4 Ml Syringe) 40 mg SC DAILY [facility] Last Admin: 04/22/20 09:16 Dose: 40 mg Documented by: Furosemide (Furosemide 40 Mg Tablet) 40 mg PO BIDLX [facility] Last Admin: 04/22/20 09:14 Dose: 40 mg Documented by: Gabapentin (Gabapentin 600 Mg Tablet) 600 mg PO 4X/DAY [facility] Last Admin: 04/22/20 13:26 Dose: 600 mg Documented by: Hydromorphone HCl (Hydromorphone 1 Mg/Ml Syringe) 1 mg IV Q4H PRN PRN PRN Reason: Pain Score 6-10 Last Admin: 04/22/20 13:26 Dose: 1 mg Documented by: Sodium Chloride () 250 mls @ 15 mls/hr IV .[id number] PRN PRN Reason: Saline Flush Sodium Chloride () 250 mls @ 15 mls/hr IV .[id number] PRN PRN Reason: Additional IVPB Infusion Isosorbide Mononitrate (Isosorbide Mononitrate 60 Mg Tablet) 60 mg PO DAILY [facility] Last Admin: 04/22/20 09:14 Dose: 60 mg Documented by: Lisinopril (Lisinopril 5 Mg Tablet) 5 mg PO QHS [facility] Last Admin: 04/21/20 21:29 Dose: 5 mg Documented by: Metoprolol Succinate (Metoprolol(Xl)Succ 50 Mg Tablet) 50 mg PO DAILY [facility] Last Admin: 04/22/20 09:13 Dose: 50 mg Documented by: Ondansetron HCl (Ondansetron 4 Mg/2 Ml Vial) 4 mg IV Q8H PRN PRN PRN Reason: NAUSEA/VOMITING Oxycodone HCl (Oxycodone 5 Mg Tablet) 10 mg PO Q6H PRN PRN PRN Reason: Pain Score 6-10 Last Admin: 04/22/20 06:45 Dose: 10 mg Documented by: Pantoprazole Sodium (Pantoprazole Sodium 40 Mg Tablet) 40 mg PO BID [facility] Last Admin: 04/22/20 09:15 Dose: 40 mg Documented by: Potassium Chloride (Potassium Chloride Oral Tablet 20 Meq) [facility] Last Admin: 04/22/20 09:10 Dose: 20 meq Documented by: Ranolazine (Ranolazine 500 Mg Tablet) 500 mg PO BID [facility] Last Admin: 04/22/20 09:14 Dose: 500 mg Documented by: Senna/Docusate Sodium (Senna/Docusate Sodium 1 Tablet) 2 tablet PO BID PRN PRN PRN Reason: Constipation Sodium Chloride (0.9% Saline Lock 10 Ml Syringe) 10 - 40 ml IV UD PRN PRN Reason: SALINE FLUSH Last Admin: 04/22/20 13:27 Dose: 20 ml Documented by: Zolpidem Tartrate (Zolpidem Tartrate 5 Mg Tablet) 5 mg PO QHS PRN PRN PRN Reason: INSOMNIA Last Admin: 04/21/20 21:27 Dose: 5 mg Documented by: Discharge Activity: Return to Normal Activity Home Medications: Medications to take at Discharge Aspirin E.C. [Ecotrin] 81 mg PO DAILY@0800 11/07/18 Clopidogrel Bisulfate [Plavix] 75 mg PO DAILY 11/07/18 Lisinopril 5 mg PO QHS 11/07/18 Magnesium Oxide [Magnesium] 400 mg PO DAILY 11/07/18 pantoprazole 40 mg tablet,delayed release 40 mg PO BID 11/15/18 potassium chloride 20 mEq tablet,extended release(part/cryst) 20 meq PO DAILY #90 tab 07/06/19 albuterol sulfate 0.63 mg/3 mL solution for nebulization 0.63 mg INHALATION Q4H PRN #270 ml 07/12/19 amitriptyline 25 mg tablet 25 mg PO QHS 08/17/19 Budesonide/Formoterol 160/4.5 [Symbicort 160/4.5 Mcg Inhaler (SP)] 2 puff INHALATION BID PRN 02/13/20 Furosemide 40 mg PO BID 02/13/20 Atorvastatin Calcium [Lipitor] 80 mg PO QHS 02/15/20 Isosorbide Mononitrate [Isosorbide Mononitrate ER] 60 mg PO DAILY 02/15/20 Metoprolol(XL)Succ [Toprol Xl (Beta Shante)] 50 mg PO DAILY 02/15/20 Ranolazine [Ranolazine ER] 500 mg PO BID 02/15/20 alendronate 70 mg tablet 70 mg PO QWEEK tab 03/15/20 amlodipine 5 mg tablet 2.5 mg PO DAILY tab 03/15/20 gabapentin 600 mg tablet 600 mg PO 4X/DAY tab 03/15/20 Oxycodone [Oxyir] 5 mg PO Q6H PRN PRN #10 tab 04/22/20 Following Prescriptions Were Given to Patient: Oxycodone [Oxyir] 5 mg PO Q6H PRN PRN #10 tab PRN Reason: Chronic pain Transmission Status: Received by [facility] Primary Care Physician: Oral Manuel MD [Primary Care Provider] - Please follow up with your Primary Care Physician in: Within the next week Medical Necessity - Tobacco Use Smoking Status: Current every day smoker Meaningful Use Info Meaningful Use Diagnoses (Choose all that apply): Ischemic CVA - CVA Therapy Assessed for PT,OT and/or ST?: Yes - Ischemic Stroke Antithrombotic order at d/c?: Yes Dx of Atrial fib/flutter?: No Anticoagulant at discharge?: Yes Statins at discharge?: Yes Primary Dx Acute Ischemic CVA?: Yes IV tPA ordered during stay?: No Reason IV t-PA not ordered: Treatment not Indicated <Alfie Penn - Last Filed: 04/23/20 07:43> Discharge Date and Diagnosis - Secondary Discharge Diagnosis Chronic Problems: Chronic Problems (Last Reviewed 03/15/20 @ 13:33 by Hortencia Perales) Coronary artery disease (Chronic) Hypertension (Chronic) PAOD (peripheral arterial occlusive disease) (Chronic) Stroke (Chronic) Osteoporosis (Chronic) Hypomagnesemia syndrome (Chronic) GERD (gastroesophageal reflux disease) (Chronic) Depression (Chronic) Anxiety (Chronic) Neuropathic pain (Chronic) Tobacco abuse (Chronic) Lung nodule < 6cm on CT (Chronic) Smoking greater than 40 pack years (Chronic) Peripheral vascular disease of extremity with claudication (Chronic) Esophageal stricture (Chronic) 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) CABG x3; multiple coronary artery stenting procedures (12/2006, 08/2010, 09/2014, 11/2018, 10/2019) NSTEMI (non-ST elevated myocardial infarction) (Chronic 10/23/19) 12/13/2018, 10/23/2019 Ischemic cardiomyopathy (Chronic) History of coronary angioplasty (Chronic 10/22/19) Successful cutting balloon angioplasty to ISR of Distal-LAD History of coronary artery stent placement (Chronic 12/13/18) 10/2019,ROYCE-LCx and LAD 12/2006; PCI-ROYCE-Mid LAD w/ 3.0 x 28 mm Xience overlapped with a 3.5 x 18 mm Xience Stent 09/08/2010; PCI ROYCE-Mid LCx w/ 3.0 x 33 Xience and ROYCE-Mid LAD w/ 2.5 x 33 mm Xience Stent 10/02/2014; LCH-TXF-JOH-Mid-LCx w/ 2.5 x 38 mm Promus Synergy Stent and ROYCE-Distal LAD w/ 2.25 x 20 mm Promus Synergy Stent 12/13/18; Drug-eluting stent placement for ISR of distal LAD on 10/22/2019; H/O coronary artery bypass surgery (Chronic 01/28/12) CABG x 3 LEHMAN-LAD, SVG-RPDA, SVG-LCx 01/28/2012 History of implantable cardiac defibrillator (ICD) (Chronic 09/15/17) Essential (primary) hypertension (Chronic) HLD (hyperlipidemia) (Chronic) Abdominal aortic aneurysm (AAA) (Chronic) Peripheral vascular occlusive disease (Chronic) Right femoral-tibioperoneal bypass, femoral endarterectomy w/ bovine patch angioplasty, profundoplasty 12/28/18 TIA (transient ischemic attack) (Chronic) Nicotine dependence (Chronic) COPD (chronic obstructive pulmonary disease) (Chronic) LETTY (obstructive sleep apnea) (Chronic) Bipap 27/08 Left lower lobe pulmonary nodule (Chronic) Abnormal PFT (Chronic) Small airway disease only Hospital Course and Treatment Summary of Care Provided: This patient was seen in conjunction with Oral Mondragon PA-C. I have independently interviewed and examined the patient and reviewed pertinent historical, laboratory, and other data. Please refer to Oral Mondragon PA-C's note for details of this patient's presentation, findings, and recommendations. I have reviewed Oral Mondragon PA-C's note and concur with documented findings. In brief, patient is a 82-year-old gentleman with multiple comorbidities admitted with left-sided weakness. An assessment of acute CVA made admitted to monitored bed for subsequent management Hospital course as documented above - Physical Exam Vitals/I&O's: Vital Signs Temp Pulse Resp BP Pulse Ox 97.5 F L 89 18 128/75 H 95 04/22/20 15:41 04/22/20 15:41 04/22/20 15:41 04/22/20 15:41 04/22/20 15:41 Oxygen Flow Rate (L/min) 2 Oxygen Delivery Method Room Air Weight: 89.9 kg Body Mass Index (BMI) 31.0 Finger Stick Blood Glucose 167 Intake and Output for Last 24 Hours 04/21/20 04/22/20 04/23/20 23:59 23:59 23:59 Intake Total 880 / 1180 1979 / 1979 Output Total 1200 / 1200 Balance 880 / 780 780 / 780 OBSV E&M: [id number] Observation care discharge
--- NOTE | 2020-04-22 15:32 | CASEMGMT ---
Living situation- SW completed assessment with patient at bedside. PCP: [facility] Specialists: none [facility]acy: [facility] DME: cane ADL's/IADL's: Patient drives, sometimes uses his cane. He dresses himself and toilets himself. His significant other does most of the household tasks. Past SNF/rehab: [facility]CU Past HH: None LW: none POA: none Plan: Originally patient was not sure if he would be okay to go home or not. We discussed SNF and he was given a list. Therapy then saw him and felt he would be okay for home with home health and a wheeled walker. SW spoke with patient and his significant other and started the process with home health referrals and [facility] walk[facility] script to [facility]. Jacqueline SZYMANSKI MSW
--- NOTE | 2020-04-22 15:55 | CASEMGMT ---
Call to [facility] to notify of [facility] script and per Kathryn, they will bring one over for pt discharge. Stephen SALMERON CM
--- NOTE | 2020-04-23 13:51 | CASEMGMT ---
FAVIOLA ALCOCER Discharge Follow Up Phone Call: DEANGELO:Jackie Strata: 3 Call Date: 04/23/2020 Discharge Date: 04/22/2020 Time of Call: 1350 Duration: 3 min Admitting diagnosis: CVA FAVIOLA ALCOCER completed FU tc after recent hospitalization. Pt reports he is doing well. He has his PCP appt scheduled for 04/26 and his cardiology fu on 05/09. Pt has received a tc from [facility] and states they are to visit tomorrow. Pt denies questions regarding dc instructions. No further concerns at this time.
== END 2020-04-22 17:16 | disposition home health service (06) | DRG 65 ==
LOC: ED 10:59 → PCU 11:50
PROVIDERS: Admitting Provider Hospitalist; Emergency Provider Student in an Organized Health Care Education/Training Program; PCP Family Medicine; Visit Provider Internal Medicine
DX: I63.81 Other cerebral infarction due to occlusion or stenosis of small artery (principal); G81.94 Hemiplegia, unspecified affecting left nondominant side; R29.810 Facial weakness; R29.706 NIHSS score 6; I25.709 Atherosclerosis of coronary artery bypass graft(s), unspecified, with unspecified angina pectoris; I25.10 Atherosclerotic heart disease of native coronary artery without angina pectoris; I25.5 Ischemic cardiomyopathy; M25.512 Pain in left shoulder; R07.89 Other chest pain; G89.29 Other chronic pain; I10 Essential (primary) hypertension; J44.9 Chronic obstructive pulmonary disease, unspecified; E78.5 Hyperlipidemia, unspecified; M06.9 Rheumatoid arthritis, unspecified; I73.9 Peripheral vascular disease, unspecified; M81.0 Age-related osteoporosis without current pathological fracture; G47.33 Obstructive sleep apnea (adult) (pediatric); K21.9 Gastro-esophageal reflux disease without esophagitis; F32.9 Major depressive disorder, single episode, unspecified; F41.9 Anxiety disorder, unspecified; F17.200 Nicotine dependence, unspecified, uncomplicated; E66.9 Obesity, unspecified; Z68.32 Body mass index [BMI] 32.0-32.9, adult; Z79.02 Long term (current) use of antithrombotics/antiplatelets; Z79.82 Long term (current) use of aspirin; Z79.51 Long term (current) use of inhaled steroids; Z79.83 Long term (current) use of bisphosphonates; Z79.899 Other long term (current) drug therapy; I25.2 Old myocardial infarction; Z86.73 Personal history of transient ischemic attack (TIA), and cerebral infarction without residual deficits; Z95.810 Presence of automatic (implantable) cardiac defibrillator; Z95.5 Presence of coronary angioplasty implant and graft
CPT/HCPCS: 36415; 70450; 70496; 70498; 71045; 80048; 84484; 85025; 85610; 85730; 93005; 94640; 94762; 97162; 97166; 99285; 99406; J7030; Q9967; A4216

== ENCOUNTER 2020-05-07 23:31 | Observation (INO) | payer MEDICARE, SELFPAY ==
[2018-12-13 11:07] VITALS: BMI 26.3
[2020-04-21 12:08] VITALS: BMI 31.0
[2020-05-07 23:31] VITALS: PULSE 89; RESP 20; TEMP 36.4; O2SAT 96; BMI 31.7
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
--- NOTE | 2020-05-07 23:48 | EKG12_ITS ---
Test Reason : CP Blood Pressure : / mmHG Vent. Rate : 085 BPM Atrial Rate : 085 BPM P-R Int : 160 ms QRS Dur : 138 ms QT Int : 404 ms P-R-T Axes : 032 112 065 degrees QTc Int : 480 ms Normal sinus rhythm Right bundle branch block Anterolateral infarct , age undetermined Abnormal ECG Confirmed by JULIO SMART, TABATHA ([id number]), non linear editor MARILUZ PAGE ([id number]) on 05/08/2020 1:57:53 PM Referred By: ALVARO Confirmed By:TABATHA KIM MD
[2020-05-08] VITALS (14 sets, daily range): BP systolic 102–126; BP diastolic 53–86; PULSE 61–100; RESP 15–20; TEMP 36.3–36.7; O2SAT 93–94; BMI 29.8; BMI 29.9
--- NOTE | 2020-05-08 | RAD_ITS ---
STUDY: X-RAY CHEST REASON FOR EXAM: Male, 60 years old. chest pain TECHNIQUE: PA and lateral views of the chest. COMPARISON: 04/21/2020. FINDINGS: There is a left-sided pacemaker in place. The lungs are slightly underexpanded with vascular crowding, more so at the lung bases. Remainder of the lung anderson are clear. There is no demonstrated pleural abnormality. Normal size heart. Normal mediastinum and jovanni. Normal visualized pulmonary arteries. There is atherosclerotic calcification of the aortic arch with tortuosity. Normal visualized thoracic spine. Normal visualized ribs, clavicles, and shoulders. There is no demonstrated abnormality of the visualized soft tissue structures of the upper abdomen. RAD/Chest PA and Lateral IMPRESSION: Decreased inspiration with vascular crowding, otherwise no acute cardiopulmonary disease. Electronically Signed: Liz Freeman MD at 0:49 EDT , Service support ,
[2020-05-08] MEDS: Aspirin 81 MG TAB.CHEW 324 MG PO (00:17)
[2020-05-08] MEDS: HYDROmorphone 1 MG/ML Syringe IV ×4 (00:30→13:42)
[2020-05-08 00:36] LABS: Absolute Lymphocyte Count 2.54 X10^3/uL (0.83-4.51); Absolute Neutrophil Count 4.3 X10^3/uL (2.0-7.7); Basophil# 0.11 X10^3/uL; Basophil% 1.4 % (0-1); Eosinophil# 0.49 X10^3/uL; Eosinophils% 6.2 % (0-5); Hematocrit 50.1 % (40-54); Hemoglobin 16.9 g/dL (13.0-16.5); Lymphocyte # 2.54 X10^3/ul (4.0); Lymphocyte % 32.2 % (19-41); Mean Corp Hgb Conc 33.7 g/dL (32-36); Mean Corpuscular Hgb 31.8 pg (27.0-32.0); Mean Corpuscular Volume 94.2 fL (80-94); Monocyte# 0.37 X10^3/uL; Monocyte% 4.7 % (0-10); NRBC Flagged by Analyzer 0 % (0-5); Neutrophil # 4.33 X10^3/uL (2.7-7.7); Neutrophil % 54.9 % (47-70); Platelet Count 206 K/mm3 (150-450); RBC Distribution Width CV 14.6 % (11.6-14.6); RBC Distribution Width SD 50.8 fl (35.1-43.9); Red Blood Count 5.32 M/mm3 (4.6-6.2); White Blood Count 7.9 K/mm3 (4.4-11.0)
[2020-05-08 00:53] LABS: Anion Gap 3 (5-15); BUN 16 mg/dL (7-18); BUN/Creat Ratio 13.3 RATIO (10-20); Calcium,Total 9.3 mg/dL (8.5-10.1); Chloride 104 mmol/L (98-107); EST Glomerular Filtration Rate 66 mL/min (>60); Est Glom Filt Rate - Afr Amer 80 mL/min (>60); Estimated Creatinine Clearance 62.73 ml/min; Glucose 170 mg/dL (74-106); Potassium 3.8 mmol/L (3.5-5.1); Sodium Level 136 mmol/L (136-145)
[2020-05-08] MEDS: Morphine 4 MG/ML Syringe IV (01:15)
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
--- NOTE | 2020-05-08 02:11 | EKG12_ITS ---
Test Reason : CP ADMISSION Blood Pressure : / mmHG Vent. Rate : 083 BPM Atrial Rate : 083 BPM P-R Int : 166 ms QRS Dur : 142 ms QT Int : 414 ms P-R-T Axes : 033 110 062 degrees QTc Int : 486 ms Normal sinus rhythm Right bundle branch block Anterolateral infarct , age undetermined Abnormal ECG When compared with ECG of 07-MAY-2020 23:33, MANUAL COMPARISON REQUIRED, DATA IS UNCONFIRMED Confirmed by DAVEY SMART, BALA ([id number]), script editor ABDOULAYE JENKINS ([id number]) on 05/09/2020 12:42:57 PM Referred By: ALMA Confirmed By:JUAN MARISCAL MD
[2020-05-08 02:27] LABS: Magnesium 2.4 mg/dL (1.6-2.6)
--- NOTE | 2020-05-08 02:28 | CPS ---
Patient reported to not be wearing CPAP at home. Does not want to wear hospital machine while admitted.
[2020-05-08] MEDS: 0.9% Normal Saline 1,000 ML 100 ML IV (02:59)
[2020-05-08] MEDS: Pantoprazole Sodium 40 MG Tablet PO (05:40)
[2020-05-08] MEDS: Clopidogrel Bisulfate 75 MG Tablet PO (05:40)
[2020-05-08] MEDS: Aspirin E.C. 81 MG Tablet PO (05:41)
[2020-05-08] MEDS: oxyCODONE 5 MG Tablet 10 MG PO (05:41)
[2020-05-08 06:24] LABS: Absolute Lymphocyte Count 2.63 X10^3/uL (0.83-4.51); Absolute Neutrophil Count 3.6 X10^3/uL (2.0-7.7); Basophil# 0.11 X10^3/uL; Basophil% 1.5 % (0-1); Eosinophil# 0.48 X10^3/uL; Eosinophils% 6.7 % (0-5); Hematocrit 49.5 % (40-54); Hemoglobin 16.4 g/dL (13.0-16.5); Lymphocyte # 2.63 X10^3/ul (4.0); Lymphocyte % 36.6 % (19-41); Mean Corp Hgb Conc 33.1 g/dL (32-36); Mean Corpuscular Hgb 31.4 pg (27.0-32.0); Mean Corpuscular Volume 94.8 fL (80-94); Mean Platelet Vol. 9.9 fl (6.2-12.0); Monocyte# 0.33 X10^3/uL; Monocyte% 4.6 % (0-10); NRBC Flagged by Analyzer 0 % (0-5); Platelet Count 199 K/mm3 (150-450); RBC Distribution Width CV 14.7 % (11.6-14.6); RBC Distribution Width SD 51.1 fl (35.1-43.9); Red Blood Count 5.22 M/mm3 (4.6-6.2); White Blood Count 7.2 K/mm3 (4.4-11.0)
[2020-05-08] MEDS: Ipratropium/Albuterol Sulfate 3 ML AMPUL.NEB INHALATION ×2 (06:46→12:53)
[2020-05-08 07:07] LABS: AST(SGOT) 17 U/L (15-37); Alanine Aminotransfer ALT/SGPT 28 U/L (16-61); Albumin, Serum 3.5 g/dL (3.2-5.0); Alkaline Phosphatase 111 U/L (45-117); Anion Gap 2 (5-15); BUN 16 mg/dL (7-18); BUN/Creat Ratio 12.8 RATIO (10-20); Calcium,Total 8.8 mg/dL (8.5-10.1); Chloride 106 mmol/L (98-107); Cholesterol 166 mg/dL (200); Creatinine, Serum 1.25 mg/dL (0.70-1.30); EST Glomerular Filtration Rate 63 mL/min (>60); Est Glom Filt Rate - Afr Amer 76 mL/min (>60); Estimated Creatinine Clearance 62.32 ml/min; Globulin 3.6 g/dL (2.2-4.2); Glucose 135 mg/dL (74-106); High Density Lipoprotein 25 mg/dL; Protein, Total 7.1 g/dL (6.4-8.2); Sodium Level 137 mmol/L (136-145); Triglycerides 351 mg/dL; Very Low Density Lipoprotein 70 mg/dL (5-40)
[2020-05-08 08:04] LABS: Hemoglobin A1c 6.1 % (3.8-5.6)
[2020-05-08] MEDS: Isosorbide Mononitrate 60 MG Tablet PO (11:32)
[2020-05-08] MEDS: Potassium Chloride Oral Tablet 20 MEQ PO (11:32)
[2020-05-08] MEDS: amLODIPine 2.5 MG Tablet PO (11:33)
[2020-05-08] MEDS: Ranolazine 500 MG Tablet PO (11:33)
[2020-05-08] MEDS: Gabapentin 600 MG Tablet PO ×2 (11:33→15:17)
[2020-05-08] MEDS: Metoprolol(XL)Succ 50 MG Tablet PO (11:33)
--- NOTE | 2020-05-08 13:44 | STRESSREP_ITS ---
Stress Test Report Pharmacologic myocardial perfusion stress test. 60-year-old man with a history of coronary artery bypass surgery coronary artery disease. Medications Elavil Norvasc Lipitor Toprol Imdur. Stress protocol: Resting EKG demonstrates normal sinus rhythm with a rate of 85 bpm right bundle branch block is noted resting blood pressure is 100/60 mmHg. 0.4 mg of regadenoson was infused per usual protocol followed by rapid intravenous saline flush injection continuous EKG monitoring was performed. The maximum heart rate was 110 bpm which was 67% of max impacted heart rate the maximum workload was 1 metabolic equivalent. At rest there were no ST or T wave changes noted to suggest abnormal flow reserve and at peak infusion no ST or T wave changes were noted. Myocardial perfusion protocol. 12.0 mCi of technetium 99m sestamibi was injected at rest. 0.4 mg of regadenoson was infused per usual protocol. At peak infusion 38.1 mCi of te chnetium 99m sestamibi was injected stress images were obtained stress and rest images were reconstructed and compared in the short axis vertical long and horizontal long axis. Gated images were also obtained Perfusion SPECT analysis: Review of the stress images demonstrate a medium size defect noted involving the mid anterior wall extending to the apex and also involving the inferior apical segment. The septum and mid lateral and mid inferior low appear to be normal. The resting images demonstrate a similar pattern suggesting evidence of a previous anterior apical and inferior apical infarct. No ischemia is noted. Gated SPECT analysis: The gated ejection fraction is 38%. Conclusion: Pharmacologic myocardial perfusion stress test with evidence of mid anterior and apical infarct. Distal inferior and apical infarct also noted. No ischemia noted. Ischemic cardiomyopathy.
[2020-05-08] MEDS: Furosemide 40 MG Tablet PO (15:17)
[2020-05-08] MEDS: 0.9% Saline Lock 10 ML Syringe IV (15:17)
--- NOTE | 2020-05-08 15:17 | DCINST_ITS ---
- Discharge Diagnoses Current Active Problems: Current Active and Chronic Problems (Last Reviewed 03/15/20 @ 13:33 by Hortencia Perales) Chest pain (Acute) Coronary artery disease (Chronic) Hypertension (Chronic) PAOD (peripheral arterial occlusive disease) (Chronic) Stroke (Chronic) Osteoporosis (Chronic) Hypomagnesemia syndrome (Chronic) GERD (gastroesophageal reflux disease) (Chronic) Depression (Chronic) Anxiety (Chronic) Neuropathic pain (Chronic) Tobacco abuse (Chronic) Lung nodule < 6cm on CT (Chronic) Smoking greater than 40 pack years (Chronic) Peripheral vascular disease of extremity with claudication (Chronic) Esophageal stricture (Chronic) 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) CABG x3; multiple coronary artery stenting procedures (12/2006, 08/2010, 09/2014, 11/2018, 10/2019) NSTEMI (non-ST elevated myocardial infarction) (Chronic 10/23/19) 12/13/2018, 10/23/2019 Ischemic cardiomyopathy (Chronic) History of coronary angioplasty (Chronic 10/22/19) Successful cutting balloon angioplasty to ISR of Distal-LAD History of coronary artery stent placement (Chronic 12/13/18) 10/2019,ROYCE-LCx and LAD 12/2006; PCI-ROYCE-Mid LAD w/ 3.0 x 28 mm Xience overlapped with a 3.5 x 18 mm Xience Stent 09/08/2010; PCI ROYCE-Mid LCx w/ 3.0 x 33 Xience and ROYCE-Mid LAD w/ 2.5 x 33 mm Xience Stent 10/02/2014; OIM-MVZ-CXU-Mid-LCx w/ 2.5 x 38 mm Promus Synergy Stent and ROYCE-Distal LAD w/ 2.25 x 20 mm Promus Synergy Stent 12/13/18; Drug-eluting stent placement for ISR of distal LAD on 10/22/2019; H/O coronary artery bypass surgery (Chronic 01/28/12) CABG x 3 LEHMAN-LAD, SVG-RPDA, SVG-LCx 01/28/2012 History of implantable cardiac defibrillator (ICD) (Chronic 09/15/17) Essential (primary) hypertension (Chronic) HLD (hyperlipidemia) (Chronic) Abdominal aortic aneurysm (AAA) (Chronic) Peripheral vascular occlusive disease (Chronic) Right femoral-tibioperoneal bypass, femoral endarterectomy w/ bovine patch angioplasty, profundoplasty 12/28/18 TIA (transient ischemic attack) (Chronic) Nicotine dependence (Chronic) COPD (chronic obstructive pulmonary disease) (Chronic) LETTY (obstructive sleep apnea) (Chronic) Bipap 27/08 Left lower lobe pulmonary nodule (Chronic) Abnormal PFT (Chronic) Small airway disease only You will use the following diet at home:: Cardiac Your food should be the consistency of: Regular Your liquids should be the consistency of: Regular/Thin Discharge Activity: Return to Normal Activity Weight Bearing Status: Weight bearing as tolerated Call your doctor if you observe: Fever of 101 or Higher, Shortness of breath, Dizziness, Chest pain Instructions: Recognizing a Heart Attack or Angina, Warning Signs of a Heart Attack, What Is Angina? Allergies/Adverse Reactions: Allergies latex Allergy (Unknown, Verified 04/21/20 10:13) unknown acetaminophen [From Darvocet-N] Allergy (Verified 04/21/20 10:13) Anaphylaxis diphenhydramine [From Benadryl] Allergy (Verified 04/21/20 10:13) Rash NSAIDS (Non-Steroidal Anti-Inflamma Allergy (Verified 04/21/20 10:13) Anaphylaxis oxycodone [From Percocet] Allergy (Verified 04/21/20 10:13) Anaphylaxis peas Allergy (Verified 04/21/20 10:13) Rash SOB Penicillins Allergy (Verified 04/21/20 10:13) Anaphylaxis propoxyphene [From Darvocet-N] Allergy (Verified 04/21/20 10:13) Anaphylaxis hydrocodone [From Vicodin] Adverse Reaction (Mild, Verified 04/21/20 10:13) Nausea/Vom/Diarrhea peppercorn Adverse Reaction (Uncoded 04/21/20 10:13) NEEDS FOLLOW-UP Medications to take at Discharge Aspirin E.C. [Ecotrin] 81 mg PO DAILY@0800 11/07/18 Clopidogrel Bisulfate [Plavix] 75 mg PO DAILY 11/07/18 Lisinopril 5 mg PO QHS 11/07/18 Magnesium Oxide [Magnesium] 400 mg PO DAILY 11/07/18 pantoprazole 40 mg tablet,delayed release 40 mg PO BID 11/15/18 potassium chloride 20 mEq tablet,extended release(part/cryst) 20 meq PO DAILY #90 tab 07/06/19 albuterol sulfate 0.63 mg/3 mL solution for nebulization 0.63 mg INHALATION Q4H PRN #270 ml 07/12/19 amitriptyline 25 mg tablet 25 mg PO QHS 08/17/19 Furosemide 40 mg PO BID 02/13/20 Atorvastatin Calcium [Lipitor] 80 mg PO QHS 02/15/20 Isosorbide Mononitrate [Isosorbide Mononitrate ER] 60 mg PO DAILY 02/15/20 Metoprolol(XL)Succ [Toprol Xl (Beta Shante)] 50 mg PO DAILY 02/15/20 Ranolazine [Ranolazine ER] 500 mg PO BID 02/15/20 alendronate 70 mg tablet 70 mg PO QWEEK tab 03/15/20 amlodipine 5 mg tablet 2.5 mg PO DAILY tab 03/15/20 gabapentin 600 mg tablet 600 mg PO 4X/DAY tab 03/15/20 Oxycodone [Oxyir] 5 mg PO Q6H PRN PRN #10 tab 04/22/20 Primary Care Physician: Oral Manuel MD [Primary Care Provider] - Please follow up with your Primary Care Physician in: 1-2 weeks Test Results: Test results from this visit will be discussed in further detail at your follow- up appointment, if applicable. Please Follow Up With: Kevin Albert MD When: tomorrow as previously scheduled
--- NOTE | 2020-05-08 15:27 | PHA.DC.MR ---
Pharmacy Service has performed discharge medication reconciliation for this patient. The patient's discharge medication list was reviewed for discrepancies and discrepancies were resolved. Home Medications Aspirin E.C. [Ecotrin] 81 mg PO DAILY@0800 11/07/18 Clopidogrel Bisulfate [Plavix] 75 mg PO DAILY 11/07/18 Lisinopril 5 mg PO QHS 11/07/18 Magnesium Oxide [Magnesium] 400 mg PO DAILY 11/07/18 pantoprazole 40 mg tablet,delayed release 40 mg PO BID 11/15/18 potassium chloride 20 mEq tablet,extended release(part/cryst) 20 meq PO DAILY #90 tab 07/06/19 albuterol sulfate 0.63 mg/3 mL solution for nebulization 0.63 mg INHALATION Q4H PRN #270 ml 07/12/19 amitriptyline 25 mg tablet 25 mg PO QHS 08/17/19 Furosemide 40 mg PO BID 02/13/20 Atorvastatin Calcium [Lipitor] 80 mg PO QHS 02/15/20 Isosorbide Mononitrate [Isosorbide Mononitrate ER] 60 mg PO DAILY 02/15/20 Metoprolol(XL)Succ [Toprol Xl (Beta Shante)] 50 mg PO DAILY 02/15/20 Ranolazine [Ranolazine ER] 500 mg PO BID 02/15/20 alendronate 70 mg tablet 70 mg PO QWEEK tab 03/15/20 amlodipine 5 mg tablet 2.5 mg PO DAILY tab 03/15/20 gabapentin 600 mg tablet 600 mg PO 4X/DAY tab 03/15/20 Oxycodone [Oxyir] 5 mg PO Q6H PRN PRN #10 tab 04/22/20
--- NOTE | 2020-05-08 15:34 | DS.PCM_ITS ---
Discharge Date and Diagnosis - Problem List Patient Problems: Active and Suspected Problems (Last Reviewed 03/15/20 @ 13:33 by Hortencia Perales) Chest pain (Acute) Date of Admission: 05/08/20 Date of Discharge: 05/08/20 - Primary Discharge Diagnosis Acute Problems: Active Problems (Last Reviewed 03/15/20 @ 13:33 by Hortencia Perales) Chest pain (Acute) - Secondary Discharge Diagnosis Chronic Problems: Chronic Problems (Last Reviewed 03/15/20 @ 13:33 by Hortencia Perales) Coronary artery disease (Chronic) Hypertension (Chronic) PAOD (peripheral arterial occlusive disease) (Chronic) Stroke (Chronic) Osteoporosis (Chronic) Hypomagnesemia syndrome (Chronic) GERD (gastroesophageal reflux disease) (Chronic) Depression (Chronic) Anxiety (Chronic) Neuropathic pain (Chronic) Tobacco abuse (Chronic) Lung nodule < 6cm on CT (Chronic) Smoking greater than 40 pack years (Chronic) Peripheral vascular disease of extremity with claudication (Chronic) Esophageal stricture (Chronic) 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) CABG x3; multiple coronary artery stenting procedures (12/2006, 08/2010, 09/2014, 11/2018, 10/2019) NSTEMI (non-ST elevated myocardial infarction) (Chronic 10/23/19) 12/13/2018, 10/23/2019 Ischemic cardiomyopathy (Chronic) History of coronary angioplasty (Chronic 10/22/19) Successful cutting balloon angioplasty to ISR of Distal-LAD History of coronary artery stent placement (Chronic 12/13/18) 10/2019,ROYCE-LCx and LAD 12/2006; PCI-ROYCE-Mid LAD w/ 3.0 x 28 mm Xience overlapped with a 3.5 x 18 mm Xience Stent 09/08/2010; PCI ROYCE-Mid LCx w/ 3.0 x 33 Xience and ROYCE-Mid LAD w/ 2.5 x 33 mm Xience Stent 10/02/2014; CAA-LOW-EFT-Mid-LCx w/ 2.5 x 38 mm Promus Synergy Stent and ROYCE-Distal LAD w/ 2.25 x 20 mm Promus Synergy Stent 12/13/18; Drug-eluting stent placement for ISR of distal LAD on 10/22/2019; H/O coronary artery bypass surgery (Chronic 01/28/12) CABG x 3 LEHMAN-LAD, SVG-RPDA, SVG-LCx 01/28/2012 History of implantable cardiac defibrillator (ICD) (Chronic 09/15/17) Essential (primary) hypertension (Chronic) HLD (hyperlipidemia) (Chronic) Abdominal aortic aneurysm (AAA) (Chronic) Peripheral vascular occlusive disease (Chronic) Right femoral-tibioperoneal bypass, femoral endarterectomy w/ bovine patch angioplasty, profundoplasty 12/28/18 TIA (transient ischemic attack) (Chronic) Nicotine dependence (Chronic) COPD (chronic obstructive pulmonary disease) (Chronic) LETTY (obstructive sleep apnea) (Chronic) Bipap 27/08 Left lower lobe pulmonary nodule (Chronic) Abnormal PFT (Chronic) Small airway disease only Hospital Course and Treatment Imaging Results: Diagnostic Data Chest X-Ray 05/08/20 00:00 IMPRESSION: Decreased inspiration with vascular crowding, otherwise no acute cardiopulmonary disease. Electronically Signed: iLz Freeman MD at 0:49 EDT , Service support , Operations: None Procedures: Stress test Summary of Care Provided: The patient is a 60 year old M with an extensive past medical history as outlined who was admitted through the ED on 05/09/2019 with a complaint of substernal chest pain radiating to his left arm. He had assisted diaphoresis and dyspnea. He does have chronic chest pain but he thought this was worse than his usual chest pain. EKG showed no acute ST changes and chest x-ray showed no acute cardiopulmonary findings. Troponins x3 were negative. He had a stress test on 05/08/2020 which showed evidence of mid anterior and apical infarct as well as distal inferior fracture. There was no ischemia elevated as he had ischemic cardiomyopathy. Patient remained stable and chest pain improved. He was discharged home on 05/08/2020. He informed me that he had an appointment with his primary parimutuel clerk Dr. Castillo on 05/09/2020. Patient was therefore encouraged to keep this appointment and also follow-up with his primary care doctor. Patient seen and examined prior to discharge. He had no complaints. Review of systems otherwise negative. Labs and vitals reviewed. Home medication reviewed and reconciled. Patient Problems: Active and Suspected Problems (Last Reviewed 03/15/20 @ 13:33 by Hortencia Nolt) Chest pain (Acute) - Physical Exam Vitals/I&O's: Vital Signs Temp Pulse Resp BP Pulse Ox 97.4 F L 85 15 102/53 L 94 05/08/20 15:09 05/08/20 15:09 05/08/20 15:09 05/08/20 15:09 05/08/20 15:09 Oxygen Delivery Method Room Air Weight: 199 lb 11.821 oz Body Mass Index (BMI) 29.8 Finger Stick Blood Glucose 167 Intake and Output for Last 24 Hours 05/06/20 05/07/20 05/08/20 23:59 23:59 23:59 Intake Total 535 / 535 Balance 535 / 535 General: Alert, Oriented x3, Cooperative HEENT: Atraumatic, PERRLA, EOMI, Normocephalic Neck: Supple, No JVD, Negative Carotid Bruits Lungs: Clear to auscultation, Normal air movement Cardiovascular: Regular rate, No murmurs Abdomen: Bowel Sounds Present, Soft, Non Tender Extremities: No edema, Capillary Refill Less than 3 Seconds Skin: No rashes, No breakdown Musculoskeletal: No Tenderness to Palpation of Joints or Extremities Lymphatic: No Cervical, Supraclavicular, or Inguinal Adenopathy Neurological: Cranial nerves II-XII grossly intact, Neuro grossly intact, Motor Exam 5/5 strength throughout Psych/Mental Status: Normal Affect, Appropriate, Alert and oriented to time, place, person, mood and affect Laboratory Results 05/08/20 00:30: WBC 7.9, RBC 5.32, Hgb 16.9 H, Hct 50.1, MCV 94.2 H, MCH 31.8, MCHC 33.7, RDW Std Deviation 50.8 H, RDW Coeff of Jack 14.6, Plt Count 206, MPV 10.0, Immature Gran % (Auto) 0.600, Neut % (Auto) 54.9, Lymph % (Auto) 32.2, [place] % (Auto) 4.7, Eos % (Auto) 6.2 H, Baso % (Auto) 1.4 H, Absolute Neuts (auto) 4.3, Absolute Lymphs (auto) 2.54, Nucleated RBC % 0 05/08/20 00:30: Sodium 136, Potassium 3.8, Chloride 104, Carbon Dioxide 29.0, A nion Gap 3 L, BUN 16, Creatinine 1.20, Estim Creat Clear Calc 62.73, Est GFR (MDRD) Af Amer 80, Est GFR (MDRD) Non-Af 66, BUN/Creatinine Ratio 13.3, Glucose 170 H, Calcium 9.3, Troponin I < 0.015 05/08/20 00:30: Magnesium 2.4 05/08/20 03:20: Troponin I 0.026 05/08/20 06:18: WBC 7.2, RBC 5.22, Hgb 16.4, Hct 49.5, MCV 94.8 H, MCH 31.4, MCHC 33.1, RDW Std Deviation 51.1 H, RDW Coeff of Jack 14.7 H, Plt Count 199, MPV 9.9, Immature Gran % (Auto) 0.600, Neut % (Auto) 50.0, Lymph % (Auto) 36.6, [place] % (Auto) 4.6, Eos % (Auto) 6.7 H, Baso % (Auto) 1.5 H, Absolute Neuts (auto) 3.6, Absolute Lymphs (auto) 2.63, Nucleated RBC % 0 05/08/20 06:18: Sodium 137, Potassium 4.0, Chloride 106, Carbon Dioxide 29.0, Anion Gap 2 L, BUN 16, Creatinine 1.25, Estim Creat Clear Calc 62.32, Est GFR (MDRD) Af Amer 76, Est GFR (MDRD) Non-Af 63, BUN/Creatinine Ratio 12.8, Glucose 135 H, Calcium 8.8, Total Bilirubin 0.60, AST 17, ALT 28, Alkaline Phosphatase 111, Total Protein 7.1, Albumin 3.5, Globulin 3.6, Albumin/Globulin Ratio 1.0, Triglycerides 351 H, Cholesterol 166, LDL Cholesterol 71, VLDL Cholesterol 70 H, HDL Cholesterol 25 L 05/08/20 06:18: Hemoglobin A1c 6.1 H 05/08/20 06:18: Troponin I 0.036 Diagnostic Data Chest X-Ray 05/08/20 00:00 IMPRESSION: Decreased inspiration with vascular crowding, otherwise no acute cardiopulmonary disease. Electronically Signed: Liz Freeman MD at 0:49 EDT , Service support , Current Medications Al Hydroxide/Mg Hydroxide (Mag Hydrox/Al Hydrox/Simeth 30 Ml Udc) 30 ml PO Q6H PRN PRN PRN Reason: Gastric Burning Albuterol Sulfate (Albuterol 2.5 Mg/3 Ml Vial.Neb.) 2.5 mg INHALATION Q2H PRN PRN PRN Reason: Dyspnea, wheezing Albuterol/Ipratropium (Ipratropium/Albuterol Sulfate 3 Ml Ampul.Neb) 3 ml INHALATION Q6HWA.RT [facility] Last Admin: 05/08/20 12:53 Dose: 3 ml Documented by: Amitriptyline HCl (Amitriptyline 25 Mg Tablet) 25 mg PO QHS [facility] Amlodipine Besylate (Amlodipine 2.5 Mg Tablet) 2.5 mg PO DAILY [facility] Last Admin: 05/08/20 11:33 Dose: 2.5 mg Documented by: Aspirin (Aspirin E.C. 81 Mg Tablet) 81 mg PO DAILY@0800 [facility] Last Admin: 05/08/20 05:41 Dose: 81 mg Documented by: Atorvastatin Calcium (Atorvastatin Calcium 80 Mg Tablet) 80 mg PO QHS [facility] Clopidogrel Bisulfate (Clopidogrel Bisulfate 75 Mg Tablet) 75 mg PO DAILY [facility] Last Admin: 05/08/20 05:40 Dose: 75 mg Documented by: Enoxaparin Sodium (Enoxaparin 40 Mg/0.4 Ml Syringe) 40 mg SC DAILY [facility] Last Admin: 05/08/20 11:25 Dose: Not Given Documented by: Furosemide (Furosemide 40 Mg Tablet) 40 mg PO BIDLX [facility] Last Admin: 05/08/20 15:17 Dose: 40 mg Documented by: Gabapentin (Gabapentin 600 Mg Tablet) 600 mg PO 4X/DAY [facility] Last Admin: 05/08/20 15:17 Dose: 600 mg Documented by: Guaifenesin (Guaifenesin 10 Ml Udc (200mg/10ml)) 20 ml PO Q4H PRN PRN PRN Reason: COUGH Hydralazine HCl (Hydralazine 20 Mg/Ml Vial) 10 mg IV Q4H PRN PRN PRN Reason: SBP > 160 Hydromorphone HCl (Hydromorphone 1 Mg/Ml Syringe) 1 mg IV Q4H PRN PRN PRN Reason: Pain Score 6-10 Last Admin: 05/08/20 13:42 Dose: 1 mg Documented by: Isosorbide Mononitrate (Isosorbide Mononitrate 60 Mg Tablet) 60 mg PO DAILY [facility] Last Admin: 05/08/20 11:32 Dose: 60 mg Documented by: Lisinopril (Lisinopril 5 Mg Tablet) 5 mg PO QHS [facility] Magnesium Hydroxide (Magnesium Hydroxide 30 Ml Udc) 30 ml PO DAILY PRN PRN PRN Reason: Constipation Melatonin (Melatonin 3 Mg Tablet) 3 mg PO QHS PRN PRN PRN Reason: INSOMNIA Metoprolol Succinate (Metoprolol(Xl)Succ 50 Mg Tablet) 50 mg PO DAILY [facility] Last Admin: 05/08/20 11:33 Dose: 50 mg Documented by: Nitroglycerin (Nitroglycerin (Inpatient Use) 0.4 Mg Tab.Subl) 0.4 mg SL Q5M PRN PRN Reason: CARDIAC/CHEST PAIN Ondansetron HCl (Ondansetron 4 Mg/2 Ml Vial) 4 mg IV Q8H PRN PRN PRN Reason: NAUSEA/VOMITING Oxycodone HCl (Oxycodone 5 Mg Tablet) 10 mg PO Q4H PRN PRN PRN Reason: Pain Score 4-5 Last Admin: 05/08/20 05:41 Dose: 10 mg Documented by: Pantoprazole Sodium (Pantoprazole Sodium 40 Mg Tablet) 40 mg PO BID [facility] Last Admin: 05/08/20 05:40 Dose: 40 mg Documented by: Potassium Chloride (Potassium Chloride Oral Tablet 20 Meq) [facility] Last Admin: 05/08/20 11:32 Dose: 20 meq Documented by: Prochlorperazine Edisylate (Prochlorperazine 10 Mg/2 Ml Vial) 5 mg IV Q4H PRN PRN PRN Reason: Breakthrough Nausea/Vomiting Psyllium Hydrophilic Mucilloid (Psyllium 1 Packet) 1 packet PO DAILY PRN PRN PRN Reason: Constipation Ranolazine (Ranolazine 500 Mg Tablet) 500 mg PO BID [facility] Last Admin: 05/08/20 11:33 Dose: 500 mg Documented by: Senna/Docusate Sodium (Senna/Docusate Sodium 1 Tablet) 2 tablet PO BID PRN PRN PRN Reason: Constipation Sodium Chloride (0.9% Saline Lock 10 Ml Syringe) 10 - 40 ml IV UD PRN PRN Reason: SALINE FLUSH Last Admin: 05/08/20 15:17 Dose: 10 ml Documented by: Throat Lozenges (Benzocaine/Menthol 1 Lozenge) 1 lozenge MUCOUS MEM Q2H PRN PRN PRN Reason: SORE THROAT Discharge Diet: Low fat/ Low Cholesterol Discharge Activity: Return to Normal Activity Weight Bearing Status: Weight bearing as tolerated Call your doctor if you observe: Fever of 101 or Higher, Shortness of breath, Dizziness, Chest pain Home Medications: Medications to take at Discharge Aspirin E.C. [Ecotrin] 81 mg PO DAILY@0800 11/07/18 Clopidogrel Bisulfate [Plavix] 75 mg PO DAILY 11/07/18 Lisinopril 5 mg PO QHS 11/07/18 Magnesium Oxide [Magnesium] 400 mg PO DAILY 11/07/18 pantoprazole 40 mg tablet,delayed release 40 mg PO BID 11/15/18 potassium chloride 20 mEq tablet,extended release(part/cryst) 20 meq PO DAILY #90 tab 07/06/19 albuterol sulfate 0.63 mg/3 mL solution for nebulization 0.63 mg INHALATION Q4H PRN #270 ml 07/12/19 amitriptyline 25 mg tablet 25 mg PO QHS 08/17/19 Furosemide 40 mg PO BID 02/13/20 Atorvastatin Calcium [Lipitor] 80 mg PO QHS 02/15/20 Isosorbide Mononitrate [Isosorbide Mononitrate ER] 60 mg PO DAILY 02/15/20 Metoprolol(XL)Succ [Toprol Xl (Beta Shante)] 50 mg PO DAILY 02/15/20 Ranolazine [Ranolazine ER] 500 mg PO BID 02/15/20 alendronate 70 mg tablet 70 mg PO QWEEK tab 03/15/20 amlodipine 5 mg tablet 2.5 mg PO DAILY tab 03/15/20 gabapentin 600 mg tablet 600 mg PO 4X/DAY tab 03/15/20 Oxycodone [Oxyir] 5 mg PO Q6H PRN PRN #10 tab 04/22/20 Primary Care Physician: Oral Manuel MD [Primary Care Provider] - Please follow up with your Primary Care Physician in: 1-2 weeks Please Follow Up With: Kevin Albert MD When: tomorrow as previously scheduled Patient Instructions: What Is Angina?, Recognizing a Heart Attack or Angina, Warning Signs of a Heart Attack Disposition: Home Minutes spent on discharge:: 35 Patient Condition:: Stable Medical Necessity - Tobacco Use Smoking Status: Current every day smoker Tobacco Use: Cigarettes Meaningful Use Info Meaningful Use Diagnoses (Choose all that apply): None applicable OBSV E&M: 97645 Subsequent observation care L2
== END 2020-05-08 15:18 | disposition home or self-care (01) ==
LOC: ED 05-08 01:07 → PCU 05-08 01:43
PROVIDERS: Admitting Provider Family Medicine; Emergency Provider Emergency Medicine; PCP Family Medicine; Visit Provider Student in an Organized Health Care Education/Training Program
DX: R07.89 Other chest pain (principal); I25.10 Atherosclerotic heart disease of native coronary artery without angina pectoris; K21.9 Gastro-esophageal reflux disease without esophagitis; I69.392 Facial weakness following cerebral infarction; I69.354 Hemiplegia and hemiparesis following cerebral infarction affecting left non-dominant side; I12.9 Hypertensive chronic kidney disease with stage 1 through stage 4 chronic kidney disease, or unspecified chronic kidney disease; N18.2 Chronic kidney disease, stage 2 (mild); J44.9 Chronic obstructive pulmonary disease, unspecified; R91.1 Solitary pulmonary nodule; G47.33 Obstructive sleep apnea (adult) (pediatric); I73.9 Peripheral vascular disease, unspecified; E78.5 Hyperlipidemia, unspecified; F32.9 Major depressive disorder, single episode, unspecified; I25.5 Ischemic cardiomyopathy; I25.2 Old myocardial infarction; F41.9 Anxiety disorder, unspecified; I45.10 Unspecified right bundle-branch block; Z79.899 Other long term (current) drug therapy; Z95.810 Presence of automatic (implantable) cardiac defibrillator; Z79.02 Long term (current) use of antithrombotics/antiplatelets; Z79.82 Long term (current) use of aspirin; Z95.1 Presence of aortocoronary bypass graft; M06.9 Rheumatoid arthritis, unspecified; F17.210 Nicotine dependence, cigarettes, uncomplicated; R73.9 Hyperglycemia, unspecified
CPT/HCPCS: 36415; 71046; 78452; 80048; 80053; 80061; 83036; 83735; 84484; 85025; 93005; 93017; 94640; 96361; 96374; 96375; 96376; 99218; 99251; 99285; 99406; A9500; J7030; A4216; G0378; G0463; J2785

== ENCOUNTER → 2020-05-14 14:37 | Outpatient (CLI) | payer MEDICARE, SELFPAY ==
[2018-12-13 11:07] VITALS: BMI 26.3
[2020-05-09 13:54] VITALS: BMI 31.1
== END ==
PROVIDERS: PCP Family Medicine; Referring Provider Family Medicine; Visit Provider Family Medicine
DX: J40 Bronchitis, not specified as acute or chronic (principal)
CPT/HCPCS: 87635; U0002

== ENCOUNTER 2020-05-20 08:49 | Day surgery (SDC) | payer MEDICARE, SELFPAY ==
[2018-12-13 11:07] VITALS: BMI 26.3
[2020-05-09 13:54] VITALS: BMI 31.1
[2020-05-17 08:18] VITALS: BMI 31.1
--- NOTE | 2020-05-20 12:26 | CL.D_ITS ---
Patient Name: SALAZAR HOLT Study Date: 05/20/2020 Performing: Kevin Albert MD Ht: 66.92 inches 170 cm : 1960 Wt: 198.42 lbs 90 kg Age: 60 Gender: male BSA: 2.01 PROCEDURE(S) PERFORMED XI48-PLH/COR/LV CLINICAL PROFILE AND INDICATIONS Indications: Worsening Angina Heart Failure: None Stress/Imaging Date: 05/08/20ress Test with SPECT MPI: Negative CAD Presentations: Unstable angina. CONCLUSIONS Moderately severe coronary artery disease with previously stented LAD with no focal areas of high-gra de stenosis but significant diffuse disease: Left circumflex artery previously stented and patent: To tally occluded right coronary artery with [id number] collaterals. RECOMMENDATIONS Would recommend continued maximization of medical therapy and consider EECP. Patient's blood pressur e does not allow for maximum titration of medications. Of note is that patient appeared to be in carlos st pain and pain all over all the time. DESCRIPTION OF PROCEDURE The patient arrived to the procedure lab. The risks and benefits of the procedure as well as a full d escription of our services here and current unavailability of surgical backup were fully explained to the patient and/or their significant other prior to the catheterization. The Timeout was completed, verifying the correct patient and procedure. The patient's procedural site was prepped and draped in the usual fashion. Local anesthetic was given subcutaneously to right radial region with Lidocaine 2% . Using a modified Seldinger technique, arterial access was obtained via the right radial artery, a 6 Fr sheath was inserted. Left Coronary Artery selective angiography was performed in multiple views u sing a 5 Fr. 4.0 [place] catheter. Right Coronary Artery selective angiography was then performed in mu ltiple views using a 5 Fr. 4.0 [place] catheter. Left Ventriculography was performed in REILLY projection using a 5 Fr. [place] catheter. LV to AO pullback pressures were then recorded.The arterial sheath was pulled and a TR Band was applied for hemostasis CORONARY ANGIOGRAPHY DOMINANCE: Right Dominant LEFT HEART ASSESSMENT Left Ventricular Ejection Fraction: by LV Gram 35 % Anterior Hypokinesis - Moderate. Apical Hypokinesis - Moderate. Inferior Apical Hypokinesis - Moderat e LEFT MAIN: Mild calcification, No significant disease noted LEFT ANTERIOR DESCENDING ARTERY: The entire LAD appears to be stented with diffuse 50 to 60% stenosis noted throughout. The distal LAD at the previously angioplastied site appears to be patent with goo d flow. There are no particular focal areas of high-grade stenosis or slow flow noted. CIRCUMFLEX ARTERY: MID CIRC: Mild luminal irregularities less than 30% RIGHT CORONARY ARTERY: is occluded COLLATERAL FLOW: Collateral flow from Left to Right COMPLICATIONS No Complications PROCEDURE MEDICATIONS Versed 1 mg IV Fentanyl 50 mcg IV Versed 1 mg IV Oxygen: 2 L/min via nasal cannula Heparin diluted in 23cc Heparinized saline. Patient given 3cc IA of this solution. 05/20/2020 11:50:43 Verapamil 2.5mg, Ntg 100mcgs, 2000 units of Heparin diluted in 23cc Heparinized saline. Patient give n 3cc IA of this solution. 05/20/2020 11:50:43 IV Bolus: .9 NaCl 500 ml total 05/20/2020 11:37:59 SUMMARY OF HEMODYNAMIC DATA Time AIR REST ECG 09:10:10 AO 70/54 (62) SA 11:52:55 AO 82/55 (67) 11:56:52 LV 77/6, 12 12:00:00 LV 78/6, 10 12:00:07 LV 85/11, 17 12:02:06 LVp 72/39, 39 12:02:23 AOp 82/52 (65) 12:02:28 AO 103/54 (71) 12:09:50 Signed By Kevin Albert MD On 05/20/2020 12:25:53 PM Kevin Albert MD
== END 2020-05-20 14:05 | disposition home or self-care (01) ==
PROVIDERS: PCP Family Medicine; Referring Provider Internal Medicine Cardiovascular Disease; Visit Provider Internal Medicine Cardiovascular Disease
DX: I25.110 Atherosclerotic heart disease of native coronary artery with unstable angina pectoris (principal); I25.709 Atherosclerosis of coronary artery bypass graft(s), unspecified, with unspecified angina pectoris; I25.82 Chronic total occlusion of coronary artery; I25.5 Ischemic cardiomyopathy; J44.9 Chronic obstructive pulmonary disease, unspecified; I73.9 Peripheral vascular disease, unspecified; M06.9 Rheumatoid arthritis, unspecified; I10 Essential (primary) hypertension; E78.5 Hyperlipidemia, unspecified; K21.9 Gastro-esophageal reflux disease without esophagitis; F32.9 Major depressive disorder, single episode, unspecified; F41.9 Anxiety disorder, unspecified; F17.200 Nicotine dependence, unspecified, uncomplicated; I25.2 Old myocardial infarction; Z79.02 Long term (current) use of antithrombotics/antiplatelets; Z79.82 Long term (current) use of aspirin; Z79.899 Other long term (current) drug therapy; Z86.73 Personal history of transient ischemic attack (TIA), and cerebral infarction without residual deficits; Z95.1 Presence of aortocoronary bypass graft; Z95.5 Presence of coronary angioplasty implant and graft
CPT/HCPCS: 93458; 99152; 99153; J7040; Q9967; C1769; C1894

== ENCOUNTER → 2020-07-26 10:22 | Outpatient (CLI) | payer MEDICARE, SELFPAY ==
[2018-12-13 11:07] VITALS: BMI 26.3
[2020-06-10 13:07] VITALS: BMI 31.3
--- NOTE | 2020-07-26 10:25 | RAD_ITS ---
STUDY: X-RAY CHEST REASON FOR EXAM: Male, 60 years old. Cough TECHNIQUE: PA and lateral views of the chest. COMPARISON: 05/08/2020 FINDINGS: Left subclavian dual-lead AICD which is unchanged. The lungs are clear and expanded. There is no demonstrated pleural abnormality. Normal size heart. Normal mediastinum and jovanni. Normal visualized pulmonary arteries. Normal visualized aortic arch and descending thoracic aorta. Normal visualized thoracic spine. Normal visualized ribs, clavicles, and shoulders. There is no demonstrated abnormality of the visualized soft tissue structures of the upper abdomen. RAD/Chest PA and Lateral IMPRESSION: No active disease. Electronically Signed: Jorge Stephens MD at 10:14 EDT Tel , Service support ,
[2020-07-26 12:21] LABS: Absolute Lymphocyte Count 2.19 X10^3/uL (0.83-4.51); Absolute Neutrophil Count 4.3 X10^3/uL (2.0-7.7); Basophil# 0.12 X10^3/uL; Basophil% 1.6 % (0-1); Eosinophil# 0.37 X10^3/uL; Hematocrit 52.3 % (40-54); Hemoglobin 17.2 g/dL (13.0-16.5); Lymphocyte # 2.19 X10^3/ul (0.83-4.51); Lymphocyte % 29.6 % (19-41); Mean Corp Hgb Conc 32.9 g/dL (32-36); Mean Corpuscular Hgb 30.7 pg (27.0-32.0); Mean Corpuscular Volume 93.4 fL (80-94); Mean Platelet Vol. 10.6 fl (6.2-12.0); Monocyte# 0.38 X10^3/uL; Monocyte% 5.1 % (0-10); NRBC Flagged by Analyzer 0 % (0-5); Neutrophil % 58.2 % (47-70); Platelet Count 216 K/mm3 (150-450); RBC Distribution Width SD 51.9 fl (35.1-43.9); White Blood Count 7.4 K/mm3 (4.4-11.0)
[2020-07-26 12:26] LABS: Color, Urine Yellow (Yellow); Glucose, Dipstick Normal (Normal); Ketone-Dipstick Negative (Negative); Leukocyte Esterase-Dipstick Negative /ul (Negative); Nitrite-Dipstick Negative (Negative); Occult Blood-Urine Negative /ul (Negative); Protein-Dipstick Negative (Negative); Urine Bilirubin Dipstick Negative (Negative); Urine Clarity Clear (Clear); Urine Urobilinogen Normal (Normal); Urine pH 6.5 (5.0 - 8.0)
[2020-07-26 12:46] LABS: AST(SGOT) 17 U/L (15-37); Alanine Aminotransfer ALT/SGPT 19 U/L (16-61); Albumin, Serum 3.8 g/dL (3.2-5.0); Alkaline Phosphatase 127 U/L (45-117); Anion Gap 4 (5-15); BUN 12 mg/dL (7-18); BUN/Creat Ratio 8.8 RATIO (10-20); Calcium,Total 9.2 mg/dL (8.5-10.1); Chloride 100 mmol/L (98-107); Cholesterol 181 mg/dL (200); Creatinine, Serum 1.37 mg/dL (0.70-1.30); EST Glomerular Filtration Rate 57 mL/min (>60); Est Glom Filt Rate - Afr Amer 69 mL/min (>60); Globulin 3.8 g/dL (2.2-4.2); Glucose 112 mg/dL (74-106); High Density Lipoprotein 26 mg/dL; PSA,Total - Annual Screen 0.35 ng/mL (0.00-4.00); Potassium 3.8 mmol/L (3.5-5.1); Protein, Total 7.6 g/dL (6.4-8.2); Sodium Level 136 mmol/L (136-145); Triglycerides 484 mg/dL
[2020-07-26 12:56] LABS: BNP,B-Type NATRIURETIC PEPTIDE 42.7 pg/mL (0-100)
== END ==
PROVIDERS: PCP Family Medicine; Referring Provider Family Medicine; Visit Provider Family Medicine
DX: R05 Cough (principal); I25.10 Atherosclerotic heart disease of native coronary artery without angina pectoris; Z12.5 Encounter for screening for malignant neoplasm of prostate
CPT/HCPCS: 36415; 71046; 80053; 80061; 81002; 83880; 84153; 85025; G0103

== ENCOUNTER 2020-08-09 00:36 | Observation (INO) | payer MEDICARE, SELFPAY ==
[2018-12-13 11:07] VITALS: BMI 26.3
[2020-06-10 13:07] VITALS: BMI 31.3
[2020-08-09] VITALS (27 sets, daily range): BP systolic 87–155; BP diastolic 53–94; PULSE 64–96; RESP 11–20; TEMP 36.1–36.5; O2SAT 93–99; BMI 33.9; BMI 27.9
--- NOTE | 2020-08-09 00:40 | EKG12_ITS ---
Test Reason : CP Blood Pressure : / mmHG Vent. Rate : 098 BPM Atrial Rate : 098 BPM P-R Int : 178 ms QRS Dur : 142 ms QT Int : 414 ms P-R-T Axes : 041 114 054 degrees QTc Int : 528 ms Sinus rhythm with Premature atrial complexes with Aberrant conduction Right bundle branch block , plus right ventricular hypertrophy Anterolateral infarct , age undetermined, cannot be excluded Abnormal ECG Confirmed by RADHA SMART, ALISON ([id number]), general expeditor MARILUZ PAGE ([id number]) on 08/13/2020 6:56:52 AM Referred By: NIC Confirmed By:ALISON GARCIA MD
--- NOTE | 2020-08-09 00:43 | EKG12_ITS ---
Test Reason : REPEAT CP Blood Pressure : / mmHG Vent. Rate : 089 BPM Atrial Rate : 089 BPM P-R Int : 166 ms QRS Dur : 142 ms QT Int : 414 ms P-R-T Axes : 026 116 071 degrees QTc Int : 503 ms Normal sinus rhythm Right bundle branch block Anterolateral infarct , age undetermined , cannot be excluded Abnormal ECG Confirmed by RADHA SMART, ALISON ([id number]), research editor MARILUZ PAGE ([id number]) on 08/13/2020 6:54:06 AM Referred By: NIC Confirmed By:ALISON GARCIA MD
[2020-08-09 00:51] LABS: Absolute Neutrophil Count 4.3 X10^3/uL (2.0-7.7); Basophil# 0.13 X10^3/uL; Basophil% 1.6 % (0-1); Eosinophil# 0.53 X10^3/uL; Eosinophils% 6.6 % (0-5); Hematocrit 50.9 % (40-54); Hemoglobin 17.2 g/dL (13.0-16.5); Lymphocyte % 33.7 % (19-41); Mean Corp Hgb Conc 33.8 g/dL (32-36); Mean Corpuscular Hgb 31.4 pg (27.0-32.0); Mean Corpuscular Volume 93.1 fL (80-94); Mean Platelet Vol. 10.3 fl (6.2-12.0); Monocyte# 0.33 X10^3/uL; Monocyte% 4.1 % (0-10); NRBC Flagged by Analyzer 0 % (0-5); Neutrophil # 4.28 X10^3/uL (2.7-7.7); Neutrophil % 53.4 % (47-70); Platelet Count 207 K/mm3 (150-450); RBC Distribution Width CV 14.9 % (11.6-14.6); RBC Distribution Width SD 51.3 fl (35.1-43.9); Red Blood Count 5.47 M/mm3 (4.6-6.2)
[2020-08-09] MEDS: Aspirin 81 MG TAB.CHEW 243 MG PO (00:51)
--- NOTE | 2020-08-09 00:55 | RAD_ITS ---
STUDY: X-RAY CHEST REASON FOR EXAM: Male, 60 years old. chest pain TECHNIQUE: Single AP portable view of the chest. COMPARISON: 07/26/2020 FINDINGS: There is hyperinflation of the lungs consistent with chronic obstructive lung disease (COPD). Lungs are clear. No consolidation or effusion. There is no demonstrated pleural abnormality. There is mild cardiac enlargement. Left chest wall pacer device is stable. Normal mediastinum and jovanni. Normal visualized pulmonary arteries. Normal visualized aortic arch and descending thoracic aorta. Normal visualized thoracic spine. Normal visualized ribs, clavicles, and shoulders. There is no demonstrated abnormality of the visualized soft tissue structures of the upper abdomen. RAD/Chest 1 View (Portable) IMPRESSION: No acute cardiopulmonary disease Electronically Signed: Ranjit Paz DO at 1:14 EDT Tel , Service support ,
[2020-08-09 01:08] LABS: Anion Gap 5 (5-15); BUN 15 mg/dL (7-18); BUN/Creat Ratio 11.3 RATIO (10-20); Calcium,Total 9.5 mg/dL (8.5-10.1); Chloride 101 mmol/L (98-107); Creatinine, Serum 1.33 mg/dL (0.70-1.30); EST Glomerular Filtration Rate 59 mL/min (>60); Est Glom Filt Rate - Afr Amer 71 mL/min (>60); Glucose 183 mg/dL (74-106); Potassium 3.3 mmol/L (3.5-5.1); Sodium Level 136 mmol/L (136-145); Troponin-I HS 30.6 pg/mL (3.0-78.5)
[2020-08-09] MEDS: Potassium Chloride Oral Tablet 20 MEQ 40 MEQ PO (01:29)
[2020-08-09] MEDS: 0.9% Normal Saline 1,000 ML 150 ML IV (01:33)
--- NOTE | 2020-08-09 01:38 | EKG12_ITS ---
Test Reason : CP Blood Pressure : / mmHG Vent. Rate : 074 BPM Atrial Rate : 074 BPM P-R Int : 180 ms QRS Dur : 140 ms QT Int : 438 ms P-R-T Axes : 033 104 083 degrees QTc Int : 486 ms Normal sinus rhythm Right bundle branch block Anterolateral infarct , age undetermined Abnormal ECG Confirmed by RADHA SMART, ALISON ([id number]), editorial cartoonist MARILUZ PAGE ([id number]) on 08/12/2020 10:51:01 AM Referred By: FREDERICK Confirmed By:ALISON GARCIA MD
--- NOTE | 2020-08-09 01:39 | EDS_ITS ---
HPI History of Present Illness Chief Complaint: Chest Pain Informant: patient and EMS Onset/Context/Timing Onset: - (30 minutes prior to arrival) Activity at onset: gradual Timing: Continuous Quality: Positive for Heaviness and Pressure Location: Left Chest Current Severity: Severe Maximum Severity: Severe Associated Symptoms: Positive for Dyspnea; Negative for Diaphoresis Narrative Narrative: Patient presents secondary to chest pain. Patient states that just after he laid down to go to bed he felt like he was trying to get reflux. Pain then settled into the left shoulder and down the left arm and into his left chest. Patient has significant history of cardiac disease with multiple MIs and stents. Patient states this feels like his prior heart attacks. EMS was called. They did give fentanyl in route for pain control. Patient states he had taken 1 baby aspirin this morning. [facility] Medical History (Updated 08/09/20 @ 02:[address] Ynes Chapman MD) Abdominal aortic aneurysm (AAA) Abnormal PFT Atherosclerosis of coronary artery bypass graft of [place] heart with angina pectoris COPD (chronic obstructive pulmonary disease) CVA (cerebral vascular accident) Depression with anxiety Esophageal stricture Essential (primary) hypertension GERD (gastroesophageal reflux disease) History of CVA (cerebrovascular accident) HLD (hyperlipidemia) Hypersomnia Ischemic cardiomyopathy Left lower lobe pulmonary nodule Nicotine dependence NSTEMI (non-ST elevated myocardial infarction) (10/23/19) LETTY (obstructive sleep apnea) Peripheral vascular disease of extremity with claudication Peripheral vascular occlusive disease Rheumatoid arthritis TIA (transient ischemic attack) Home Medications aspirin 81 mg PO DAILY@0800 11/07/18 [History Last Taken 05/20/20] clopidogrel 75 mg PO DAILY 11/07/18 [History Last Taken 05/20/20] magnesium oxide 400 mg PO DAILY 11/07/18 [History Last Taken 04/20/20] pantoprazole 40 mg tablet,delayed release 40 mg PO BID 11/15/18 [History Last Taken 05/20/20] potassium chloride 20 mEq tablet,extended release(part/cryst) 20 meq PO DAILY #90 tablet 07/06/19 [Rx Last Taken 05/20/20] albuterol sulfate 0.63 mg/3 mL solution for nebulization 0.63 mg INHALATION Q4H PRN #270 ml 07/12/19 [Rx Last Taken 05/20/20] amitriptyline 25 mg tablet 25 mg PO QHS 08/17/19 [History Last Taken 04/20/20] furosemide 40 mg PO BID 02/13/20 [History Last Taken 04/20/20] atorvastatin 80 mg PO QHS 02/15/20 [History Last Taken 04/20/20] metoprolol succinate 50 mg PO DAILY 02/15/20 [History Last Taken 05/20/20] alendronate 70 mg tablet 70 mg PO QWEEK tablet 03/15/20 [History Last Taken 04/15/20] gabapentin 600 mg tablet 600 mg PO 4X/DAY tablet 03/15/20 [History Last Taken 05/20/20] isosorbide mononitrate 60 mg tablet,extended release 24 hr 60 mg PO BID #180 tablet 05/20/20 [Rx Last Taken Unknown] lisinopril 5 mg tablet 5 mg PO DAILY tablet 06/10/20 [History Last Taken Unknown] ranolazine 1,000 mg tablet,extended release,12 hr 1,000 mg PO BID 30 Days #60 tablet 06/10/20 [Rx Last Taken Unknown] Allergy/AdvReac Type Severity Reaction Status Date / Time latex Allergy Unknown unknown Verified 08/09/20 00:41 acetaminophen Allergy Anaphylaxis Verified 08/09/20 00:41 [From Darvocet-N] diphenhydramine Allergy Rash Verified 08/09/20 00:41 [From Benadryl] NSAIDS (Non-Steroidal Allergy Anaphylaxis Verified 08/09/20 00:41 Anti-Inflamma oxycodone [From Percocet] Allergy Anaphylaxis Verified 08/09/20 00:41 peas Allergy Rash Verified 08/09/20 00:41 Penicillins Allergy Anaphylaxis Verified 08/09/20 00:41 propoxyphene Allergy Anaphylaxis Verified 08/09/20 00:41 [From Darvocet-N] hydrocodone [From Vicodin] AdvReac Mild Nausea/Vom/ Verified 08/09/20 00:41 Diarrhea peppercorn AdvReac NEEDS Uncoded 08/09/20 00:41 FOLLOW-UP Family History Sister CVA (cerebral vascular accident) Heart disease Hypertension High cholesterol Diabetes Cancer lung cancer Father Arthritis Cancer myeloma Mother Arthritis Cancer Brain cancer Surgical History H/O coronary artery bypass surgery (01/28/12) History of angioplasty of peripheral vessel (01/2015) History of coronary angioplasty (10/22/19) History of coronary artery stent placement (12/13/18) History of implantable cardiac defibrillator (ICD) (09/15/17) History of left heart catheterization (05/20/20) History of left inguinal hernia repair S/P femoral-tibial bypass (12/28/18) Social History Smoking Status: Current every day smoker tobacco type: cigarettes Tobacco: How many years used: 40 quit status: considering quitting alcohol intake: never substance use type: does not use caffeine: Yes (cola) Type: carbonated beverages Number of servings: 5 ROS ROS ED Constitutional Constitutional ED: Denies chills or fever(s) Eyes Eyes: Denies change in vision ENT ENT ED: Denies sore throat Cardiovascular Cardiovascular: Reports chest pain Respiratory/Chest Respiratory/Chest: Reports dyspnea; Denies cough Gastrointestinal Gastrointestinal: Denies abdominal pain, diarrhea, nausea or vomiting Genitourinary Genitourinary ED: Denies dysuria Musculoskeletal Musculoskeletal: Denies back pain Integumentary Denies rash Neurologic Neurologic: Denies headache(s) or weakness Psychiatric Psychiatric: Denies anxiety or depression Endocrine Endocrinology: Denies polydipsia or polyuria Allergic/Immunologic Allergic/Immunologic ED: Denies urticaria EXAM Physical Exam Const Vital Signs: 08/09/20 00:37 08/09/20 00:45 08/09/20 00:50 Temperature 97.6 F L Temperature Source Temporal Pulse Rate 96 Respiratory Rate 18 Blood Pressure 130/88 H Blood Pressure Mean 102 Pulse Ox 95 95 Oxygen Delivery Method Nasal Cannula Oxygen Flow Rate (L/min) 3 08/09/20 01:36 Temperature Temperature Source Pulse Rate 93 Respiratory Rate 18 Blood Pressure 107/94 H Blood Pressure Mean 98 Pulse Ox 96 Oxygen Delivery Method Nasal Cannula Oxygen Flow Rate (L/min) 3 Positive well nourished and well developed General Appearance ED: well developed HEENT normocephalic and atraumatic Eyes PERRL and EOMs intact bilaterally Neck supple Chest Wall Chest Narrative: Healed mid surgical scar. Scar from pacer/ICD placement noted. Resp normal respiratory effort Cardio regular rate and regular rhythm GI soft to palpation and non-tender Auscultation: hypoactive bowel sounds Extremity normal to inspection Neuro Sensorium / Orientation: awake and alert Psych mental status grossly normal Skin no rashes or lesions noted Heart Score History: Highly Suspicious ECG: Nonspecific Repolarization Age: >45 - <65 years Risk Factors: >/= 3 Risk Factors or History of CAD Troponin: </= Normal Limit Score: 6 MDM MDM MDM Narrative Medical decision making narrative: EKG was obtained upon arrival. Patient was given 3 additional baby aspirin, chest x-ray, labs. Lab Data Attestation: I reviewed the patient's lab results. Labs: Laboratory Results - last 24 hr 08/09/20 08/09/20 00:45 00:45 WBC 8.0 RBC 5.47 Hgb 17.2 H Hct 50.9 MCV 93.1 MCH 31.4 MCHC 33.8 RDW Std Deviation 51.3 H RDW Coeff of Jack 14.9 H Plt Count 207 MPV 10.3 Immature Gran % (Auto) 0.600 Neut % (Auto) 53.4 Lymph % (Auto) 33.7 [place] % (Auto) 4.1 Eos % (Auto) 6.6 H Baso % (Auto) 1.6 H Absolute Neuts (auto) 4.3 Absolute Lymphs (auto) 2.70 Nucleated RBC % 0 Sodium 136 Potassium 3.3 L Chloride 101 Carbon Dioxide 30.0 Anion Gap 5 BUN 15 Creatinine 1.33 H Estim Creat Clear Calc 56.60 Est GFR (MDRD) Af Amer 71 Est GFR (MDRD) Non-Af 59 L BUN/Creatinine Ratio 11.3 Glucose 183 H Calcium 9.5 Troponin I High Sens 30.6 Radiography Chest X-Ray - ED: 1 View, Read by ED Physician, Normal, Heart, Lungs, Mediastinum and - (ICD/pacer leads in place.) Diagnostic Testing: Radiology Impression Chest X-Ray 08/09/20 00:55 IMPRESSION: No acute cardiopulmonary disease Electronically Signed: Ranjit Paz DO at 1:14 EDT Tel , Service support , EKG Initial EKG: Attestation: I personally reviewed and interpreted this EKG as follows: Interpretation: Sinus Rhythm (Sinus at 98 with PACs. Right bundle branch and RVH noted. Not significantly changed when compared to prior study.) Follow-up EKG: Attestation: I personally reviewed and interpreted this EKG as follows: Interpretation: Sinus Rhythm (Sinus at 89 with right bundle branch block. Unchanged when compared to prior.) Treatment and Re-Evaluation Comments:: Patient was given 3 additional baby aspirin on arrival. He already taken 1 this morning. He had been given fentanyl with EMS for pain. Upon completion of his labs he was given oral potassium as his potassium is slightly low at 3.3. High-sensitivity troponin returns at 30.6. On repeat evaluation patient states his pain is still a 7 out of 10. He states it was a 20 out of 10 when EMS arrived. Repeat EKG is obtained and is unchanged. Patient will be given a dose of morphine for pain. I will speak with hospitalist regarding admission for cycling of enzymes secondary to his significant coronary history. Discharge Plan Dx/Rx/DC Orders Clinical Impression: Chest pain Disposition Disposition: Acute Care Hospital [facility]
[2020-08-09] MEDS: Morphine 4 MG/ML Syringe IV ×5 (01:49→20:34)
--- NOTE | 2020-08-09 02:57 | HP.PCM.HOS_ITS ---
HPI - General General Date of Admission: 08/09/20 Date of Service: 08/09/20 Chief Complaint: chest pain HPI Narrative SALAZAR HOLT, is a 60 M who presents presents with chest pain. Patient had not been feeling well all day on the was having some vague chest pain reflux type symptoms. Then we went to bed last night, the reflux was more intense and then he was having chest pain that went across his chest and down his left arm. The symptoms were similar to when he has had a myocardial infarction. Patient presented to the emergency room and his work-up thus far has been unremarkable. He did receive aspirin and morphine which did alleviate his chest pain and he is feeling much more comfortable at this time. Additionally, he did receive potassium for a low potassium level. [facility] Medical History (Updated 08/09/20 @ 03:[address] Lance Chavez, ) Abdominal aortic aneurysm (AAA) Abnormal PFT Atherosclerosis of coronary artery bypass graft of [place] heart with angina pectoris COPD (chronic obstructive pulmonary disease) CVA (cerebral vascular accident) Depression with anxiety Esophageal stricture Essential (primary) hypertension GERD (gastroesophageal reflux disease) History of CVA (cerebrovascular accident) HLD (hyperlipidemia) Hypersomnia Ischemic cardiomyopathy Left lower lobe pulmonary nodule Nicotine dependence NSTEMI (non-ST elevated myocardial infarction) (10/23/19) LETTY (obstructive sleep apnea) Peripheral vascular disease of extremity with claudication Peripheral vascular occlusive disease Rheumatoid arthritis TIA (transient ischemic attack) Home Medications aspirin 81 mg PO DAILY@0800 11/07/18 [History Last Taken 05/20/20] clopidogrel 75 mg PO DAILY 11/07/18 [History Last Taken 05/20/20] magnesium oxide 400 mg PO DAILY 11/07/18 [History Last Taken 04/20/20] pantoprazole 40 mg tablet,delayed release 40 mg PO BID 11/15/18 [History Last Taken 05/20/20] potassium chloride 20 mEq tablet,extended release(part/cryst) 20 meq PO DAILY #90 tablet 07/06/19 [Rx Last Taken 05/20/20] albuterol sulfate 0.63 mg/3 mL solution for nebulization 0.63 mg INHALATION Q4H PRN #270 ml 07/12/19 [Rx Last Taken 05/20/20] amitriptyline 25 mg tablet 25 mg PO QHS 08/17/19 [History Last Taken 04/20/20] furosemide 40 mg PO BID 02/13/20 [History Last Taken 04/20/20] atorvastatin 80 mg PO QHS 02/15/20 [History Last Taken 04/20/20] metoprolol succinate 50 mg PO DAILY 02/15/20 [History Last Taken 05/20/20] alendronate 70 mg tablet 70 mg PO QWEEK tablet 03/15/20 [History Last Taken 04/15/20] gabapentin 600 mg tablet 600 mg PO 4X/DAY tablet 03/15/20 [History Last Taken 05/20/20] isosorbide mononitrate 60 mg tablet,extended release 24 hr 60 mg PO BID #180 tablet 05/20/20 [Rx Last Taken Unknown] lisinopril 5 mg tablet 5 mg PO DAILY tablet 06/10/20 [History Last Taken Unknown] ranolazine 1,000 mg tablet,extended release,12 hr 1,000 mg PO BID 30 Days #60 tablet 06/10/20 [Rx Last Taken Unknown] Allergy/AdvReac Type Severity Reaction Status Date / Time latex Allergy Unknown unknown Verified 08/09/20 00:41 acetaminophen Allergy Anaphylaxis Verified 08/09/20 00:41 [From Darvocet-N] diphenhydramine Allergy Rash Verified 08/09/20 00:41 [From Benadryl] NSAIDS (Non-Steroidal Allergy Anaphylaxis Verified 08/09/20 00:41 Anti-Inflamma oxycodone [From Percocet] Allergy Anaphylaxis Verified 08/09/20 00:41 peas Allergy Rash Verified 08/09/20 00:41 Penicillins Allergy Anaphylaxis Verified 08/09/20 00:41 propoxyphene Allergy Anaphylaxis Verified 08/09/20 00:41 [From Darvocet-N] hydrocodone [From Vicodin] AdvReac Mild Nausea/Vom/ Verified 08/09/20 00:41 Diarrhea peppercorn AdvReac NEEDS Uncoded 08/09/20 00:41 FOLLOW-UP Family History Sister CVA (cerebral vascular accident) Heart disease Hypertension High cholesterol Diabetes Cancer lung cancer Father Arthritis Cancer myeloma Mother Arthritis Cancer Brain cancer Surgical History H/O coronary artery bypass surgery (01/28/12) History of angioplasty of peripheral vessel (01/2015) History of coronary angioplasty (10/22/19) History of coronary artery stent placement (12/13/18) History of implantable cardiac defibrillator (ICD) (09/15/17) History of left heart catheterization (05/20/20) History of left inguinal hernia repair S/P femoral-tibial bypass (12/28/18) Social History Smoking Status: Current every day smoker tobacco type: cigarettes Tobacco: How many years used: 40 quit status: considering quitting alcohol intake: never substance use type: does not use caffeine: Yes (cola) Type: carbonated beverages Number of servings: 5 ROS ROS Narrative Patient did have some diaphoresis. No shortness of breath. No nausea or vomiting. Does have chronic abdominal pain due to a hernia. Does have lower extremity edema. All review of systems were negative except as mentioned above in the history of present illness and the other review of systems. Vital Signs Vital Signs Vital Signs: 08/09/20 00:37 08/09/20 00:45 08/09/20 00:50 Temperature 36.4 C L Temperature Source Temporal Pulse Rate 96 Respiratory Rate 18 Blood Pressure 130/88 H Blood Pressure Mean 102 Pulse Ox 95 95 Oxygen Delivery Method Nasal Cannula Oxygen Flow Rate (L/min) 3 08/09/20 01:36 08/09/20 02:37 Temperature 36.1 C L Temperature Source Temporal Pulse Rate 93 87 Respiratory Rate 18 17 Blood Pressure 107/94 H 112/86 H Blood Pressure Mean 98 94 Pulse Ox 96 96 Oxygen Delivery Method Nasal Cannula Nasal Cannula Oxygen Flow Rate (L/min) 3 3 Weight Weight: 98.2 kg Body Mass Index (BMI) 33.9 Physical Exam Const alert and oriented x3 General Appearance: cooperative HEENT normocephalic Eyes PERRL Resp normal respiratory effort, no retractions, no use of accessory muscles and clear to auscultation bilaterally Cardio regular rate, regular rhythm, S1 normal heart sound and S2 normal heart sound GI normal to inspection, nondistended, normoactive bowel sounds, soft to palpation, non-tender and non-distended Extremity Extremity Narrative: Trace lower extremity edema. No calf tenderness. Peripheral Pulses: Yes pulses 2+ throughout Skin no rashes or lesions noted and no wounds Neuro moves all extremities Sensorium / Orientation: awake and alert Psych affect normal Results Lab / Micro Data Result Diagrams: 08/09/20 00:45 08/09/20 00:45 Labs: Laboratory Results - last 24 hr 08/09/20 08/09/20 00:45 00:45 WBC 8.0 RBC 5.47 Hgb 17.2 H Hct 50.9 MCV 93.1 MCH 31.4 MCHC 33.8 RDW Std Deviation 51.3 H RDW Coeff of Jack 14.9 H Plt Count 207 MPV 10.3 Immature Gran % (Auto) 0.600 Neut % (Auto) 53.4 Lymph % (Auto) 33.7 [place] % (Auto) 4.1 Eos % (Auto) 6.6 H Baso % (Auto) 1.6 H Absolute Neuts (auto) 4.3 Absolute Lymphs (auto) 2.70 Nucleated RBC % 0 Sodium 136 Potassium 3.3 L Chloride 101 Carbon Dioxide 30.0 Anion Gap 5 BUN 15 Creatinine 1.33 H Estim Creat Clear Calc 56.60 Est GFR (MDRD) Af Amer 71 Est GFR (MDRD) Non-Af 59 L BUN/Creatinine Ratio 11.3 Glucose 183 H Calcium 9.5 Troponin I High Sens 30.6 EKG Initial EKG: Attestation: I personally reviewed and interpreted this EKG as follows: Prior EKG tracings: available for review EKG Rhythm Intrepretation: Sinus Rhythm (Right bundle branch block. No change from EKG on 05/07/2020.) Radiology Impression Chest X-Ray 08/09/20 00:55 IMPRESSION: No acute cardiopulmonary disease Electronically Signed: Ranjit Paz DO at 1:14 EDT Tel , Service support , Assessment & Plan Assessment/Plan (1) Chest pain: QUALIFIERS: Chest pain type: unspecified Qualified Code(s): R07.9 - Chest pain, unspecified PLAN: 1. Chest pain * VIKKI score of 4 * Patient did have a left heart catheterization on May 20, 2020. It showed Moderately severe coronary artery disease with previously stented LAD with no focal areas of high-grade stenosis but significant diffuse disease: Left circumflex artery previously stented and patent: Totally occluded right coronary artery with [id number] collaterals. And the recommendations were to maximize medical therapy and consider EECP. * Given the patient's history of CABG and stents, going to consult cardiology to see what their recommendations are. * Patient informed that at this point time with his negative troponin and unchanged EKG there is no evidence of a myocardial infarction at this point. * Patient did state it felt like reflux but he does state that reflux is atypical for him to experience. 2. Heart failure with reduced ejection fraction, chronic * EF 35% from echocardiogram on 02/14/2020 * Continue with furosemide and lisinopril 3. Hypokalemia * Likely due to furosemide * Replaced in the emergency room * Check magnesium 4. CAD * History of CABG and stents * Continue with aspirin, clopidogrel, isosorbide, Raynaud's Kala and lisinopril. 5. VTE prophylaxis: Not indicated given observation status. 6. Advanced care planning: Discussed with the patient. Patient said that he would want CPR but did not want any chest compressions. I informed him that that would essentially be extremely ineffective we cannot shock his heart is no blood can circulate if he would need medications. He said he did not want a ribs to be broken. I informed him that this either ribs broken or he would be . He still remains steadfast in state that he did not want any chest compressions. I therefore recommended no CPR. He was in agreement to that. I did inform him that he is certainly welcome to change his mind at any point. Charges/Coding Visit Charges OBSV E&M: 99731 Initial observation care L2
--- NOTE | 2020-08-09 02:57 | EKG12_ITS ---
Test Reason : CP ADMIT Blood Pressure : / mmHG Vent. Rate : 085 BPM Atrial Rate : 085 BPM P-R Int : 172 ms QRS Dur : 142 ms QT Int : 428 ms P-R-T Axes : 030 110 077 degrees QTc Int : 509 ms Normal sinus rhythm Right bundle branch block Anterolateral infarct (cited on or before 12-DEC-2018) Abnormal ECG When compared with ECG of 08-MAY-2020 02:11, No significant change was found Confirmed by JULIO SMART, TABATHA ([id number]), editor in chief MARILUZ PAGE ([id number]) on 08/09/2020 1:07:01 PM Referred By: FREDERICK Confirmed By:TABATHA KIM MD
[2020-08-09] MEDS: Morphine 2 MG/ML Syringe IV (03:28)
[2020-08-09 03:55] LABS: Troponin-I HS 273.6 pg/mL (3.0-78.5)
[2020-08-09 06:10] LABS: Anion Gap 5 (5-15); BUN 15 mg/dL (7-18); BUN/Creat Ratio 11.7 RATIO (10-20); Calcium,Total 8.8 mg/dL (8.5-10.1); Chloride 104 mmol/L (98-107); Creatinine, Serum 1.28 mg/dL (0.70-1.30); EST Glomerular Filtration Rate 61 mL/min (>60); Est Glom Filt Rate - Afr Amer 74 mL/min (>60); Estimated Creatinine Clearance 58.81 ml/min; Glucose 128 mg/dL (74-106); Magnesium 2.2 mg/dL (1.6-2.6); Sodium Level 138 mmol/L (136-145); Troponin-I HS 699.5 pg/mL (3.0-78.5)
[2020-08-09] MEDS: 0.9% Saline Lock 10 ML Syringe IV ×2 (06:29→09:40)
[2020-08-09] MEDS: Enoxaparin 80 MG/0.8 ML Syringe SC (06:29)
--- NOTE | 2020-08-09 08:39 | NURSING ---
Pt c/o cp 08/24. Refuses nitro, states it does not work for him. Vital signs obtained and assessment completed. Complaints of shortness of breath. Satting 93% on RA, 2LNC applied for comfort. RT in at bedside to obtain EKG at this time. Will send results to MD and continue to monitor.
--- NOTE | 2020-08-09 10:24 | CASEMGMT ---
FAVIOLA ALCOCER NOTE: Insurance review for hospitals In-network with [employer] HMO Insurance if transfer is recommended is as follows: [facility], [place], [facility], [facility], [facility], [facility]), and . Patrick SAMUELS RN CM
[2020-08-09] MEDS: Aspirin E.C. 81 MG Tablet PO (10:29)
[2020-08-09] MEDS: Ranolazine 500 MG Tablet 1000 MG PO ×2 (10:29→22:44)
[2020-08-09] MEDS: Metoprolol(XL)Succ 50 MG Tablet PO (10:29)
[2020-08-09] MEDS: Clopidogrel Bisulfate 75 MG Tablet PO (10:29)
[2020-08-09] MEDS: Lisinopril 5 MG Tablet PO (10:29)
--- NOTE | 2020-08-09 10:43 | CON.PCM.CA_ITS ---
Assessment & Plan Assessment/Plan (1) Chest pain: QUALIFIERS: Chest pain type: unspecified Qualified Code(s): R07.9 - Chest pain, unspecified (2) Coronary artery disease: QUALIFIERS: Associated angina: angina presence unspecified Coronary Disease-Associated Artery/Lesion type: unspecified vessel or lesion type [place] vs. transplanted heart: unspecified whether the [place] or transplanted heart Qualified Code(s): I25.10 - Atherosclerotic heart disease of the [place] coronary artery without angina pectoris (3) Hypertension: QUALIFIERS: Hypertension type: essential hypertension Qualified Code(s): I10 - Essential (primary) hypertension (4) PAOD (peripheral arterial occlusive disease): (5) NSTEMI (non-ST elevated myocardial infarction): PLAN: 60-year-old patient with extensive cardiac history presenting with symptoms of left upper chest pain with radiation to the left arm Has a carotid bypass surgery in January 2012 with LEHMAN to LAD, SVG to RPDA, SVG to left circumflex Patient also had severe ischemic cardiomyopathy and had ICD in September 2017 Subsequently 2019 he had a PCI and stent to the left circumflex using drug- eluting stent and had also had a PCI to the LAD. The RCA is chronically occ luded with collateralization noted from the LAD to the RCA on the last cardiac catheterization On this presentation his symptoms his chest pain and he had significantly elevated cardiac biomarkers with elevated high sensitive troponins. Cardiac examination essentially normal EKG showed evidence of right bundle branch block with age undetermined anterior NV Plan and recommendation; 1. We reviewed all his current medication will continue the current treatment 2. I discussed the case with his primary base brander Dr. Albert will proceed with cardiac catheterization to assess patency of his coronary artery stent and discuss further plan. (6) History of coronary angioplasty: (7) Ischemic cardiomyopathy: (8) History of coronary artery stent placement: (9) H/O coronary artery bypass surgery: (10) History of implantable cardiac defibrillator (ICD): HPI Consult Data Date of Consult: 08/09/20 Attending Care Provider: Patient with extensive cardiac history and presented with chest pain with non-ST elevation NV HPI Narrative HPI Narrative: SALAZAR HOLT, is a 60 M who presents [facility] Medical History Abdominal aortic aneurysm (AAA) Abnormal PFT Atherosclerosis of coronary artery bypass graft of the [place] heart with angina pectoris COPD (chronic obstructive pulmonary disease) CVA (cerebral vascular accident) Depression with anxiety Esophageal stricture Essential (primary) hypertension GERD (gastroesophageal reflux disease) History of CVA (cerebrovascular accident) HLD (hyperlipidemia) Hypersomnia Ischemic cardiomyopathy Left lower lobe pulmonary nodule Nicotine dependence NSTEMI (non-ST elevated myocardial infarction) (10/23/19) LETTY (obstructive sleep apnea) Peripheral vascular disease of extremity with claudication Peripheral vascular occlusive disease Rheumatoid arthritis TIA (transient ischemic attack) Home Medications aspirin 81 mg PO DAILY@0800 11/07/18 [History Last Taken 05/20/20] clopidogrel 75 mg PO DAILY 11/07/18 [History Last Taken 05/20/20] magnesium oxide 400 mg PO DAILY 11/07/18 [History Last Taken 04/20/20] pantoprazole 40 mg tablet,delayed release 40 mg PO BID 11/15/18 [History Last Taken 05/20/20] potassium chloride 20 mEq tablet,extended release(part/cryst) 20 meq PO DAILY #90 tablet 07/06/19 [Rx Last Taken 05/20/20] albuterol sulfate 0.63 mg/3 mL solution for nebulization 0.63 mg INHALATION Q4H PRN #270 ml 07/12/19 [Rx Last Taken 05/20/20] amitriptyline 25 mg tablet 25 mg PO QHS 08/17/19 [History Last Taken 04/20/20] furosemide 40 mg PO BID 02/13/20 [History Last Taken 04/20/20] atorvastatin 80 mg PO QHS 02/15/20 [History Last Taken 04/20/20] metoprolol succinate 50 mg PO DAILY 02/15/20 [History Last Taken 05/20/20] alendronate 70 mg tablet 70 mg PO QWEEK tablet 03/15/20 [History Last Taken ] gabapentin 600 mg tablet 600 mg PO 4X/DAY tablet 03/15/20 [History Last Taken 05/20/20] isosorbide mononitrate 60 mg tablet,extended release 24 hr 60 mg PO BID #180 tablet 05/20/20 [Rx Last Taken Unknown] lisinopril 5 mg tablet 5 mg PO DAILY tablet 06/10/20 [History Last Taken Unknown] ranolazine 1,000 mg tablet,extended release,12 hr 1,000 mg PO BID 30 Days #60 tablet 06/10/20 [Rx Last Taken Unknown] Allergy/AdvReac Type Severity Reaction Status Date / Time latex Allergy Unknown unknown Verified 08/09/20 00:41 acetaminophen Allergy Anaphylaxis Verified 08/09/20 00:41 [From Darvocet-N] diphenhydramine Allergy Rash Verified 08/09/20 00:41 [From Benadryl] NSAIDS (Non-Steroidal Allergy Anaphylaxis Verified 08/09/20 00:41 Anti-Inflamma oxycodone [From Percocet] Allergy Anaphylaxis Verified 08/09/20 00:41 peas Allergy Rash Verified 08/09/20 00:41 Penicillins Allergy Anaphylaxis Verified 08/09/20 00:41 propoxyphene Allergy Anaphylaxis Verified 08/09/20 00:41 [From Darvocet-N] hydrocodone [From Vicodin] AdvReac Mild Nausea/Vom/ Verified 08/09/20 00:41 Diarrhea peppercorn AdvReac NEEDS Uncoded 08/09/20 00:41 FOLLOW-UP Family History Sister CVA (cerebral vascular accident) Heart disease Hypertension High cholesterol Diabetes Cancer lung cancer Father Arthritis Cancer myeloma Mother Arthritis Cancer Brain cancer Surgical History H/O coronary artery bypass surgery (01/28/12) History of angioplasty of peripheral vessel (01/2015) History of coronary angioplasty (10/22/19) History of coronary artery stent placement (12/13/18) History of implantable cardiac defibrillator (ICD) (09/15/17) History of left heart catheterization (05/20/20) History of left inguinal hernia repair S/P femoral-tibial bypass (12/28/18) Social History Smoking Status: Current every day smoker tobacco type: cigarettes Tobacco: How many years used: 40 quit status: considering quitting alcohol intake: never substance use type: does not use caffeine: Yes (cola) Type: carbonated beverages Number of servings: 5 Physical Exam Narrative Patient seen and evaluated today at bedside with the nursing staff Alert orientated x3 Not in acute distress Still having symptoms of chest pain left-sided with some radiation to the left arm. Review of the pvc monitor showed underlying normal sinus rhythm. Cardiovascular examination; S1-S2 normal, no murmur no systolic or diastolic murmur no pericardial rub Chest examination clear to auscultation Examination abdomen soft Examination lower extremity no clubbing no cyanosis or extremity edema Examination Central nervous system no focal neurological deficit noted. Objective Data Vital Signs: Vital Signs Temp Pulse Resp BP Pulse Ox 97.7 F L 80 18 120/73 96 08/09/20 10:22 08/09/20 10:29 08/09/20 10:22 08/09/20 10:22 08/09/20 10:22 Oxygen Flow Rate (L/min) 2 Oxygen Delivery Method Room Air Weight: 178 lb 9.191 oz Body Mass Index (BMI) 27.9 Intake & Output: Intake and Output for Last 24 Hours 08/07/20 08/08/20 08/09/20 23:59 23:59 23:59 Intake Total 267.5 / 267.5 Output Total 150 / 150 Balance 117.5 / 117.5 Lab / Micro Data Result Diagrams: 08/09/20 00:45 08/09/20 05:18 Labs: Laboratory Results - last 24 hr 08/09/20 08/09/20 08/09/20 00:45 00:45 03:15 WBC 8.0 RBC 5.47 Hgb 17.2 H Hct 50.9 MCV 93.1 MCH 31.4 MCHC 33.8 RDW Std Deviation 51.3 H RDW Coeff of Jack 14.9 H Plt Count 207 MPV 10.3 Immature Gran % (Auto) 0.600 Neut % (Auto) 53.4 Lymph % (Auto) 33.7 [place] % (Auto) 4.1 Eos % (Auto) 6.6 H Baso % (Auto) 1.6 H Absolute Neuts (auto) 4.3 Absolute Lymphs (auto) 2.70 Nucleated RBC % 0 Sodium 136 Potassium 3.3 L Chloride 101 Carbon Dioxide 30.0 Anion Gap 5 BUN 15 Creatinine 1.33 H Estim Creat Clear Calc 56.60 Est GFR (MDRD) Af Amer 71 Est GFR (MDRD) Non-Af 59 L BUN/Creatinine Ratio 11.3 Glucose 183 H Calcium 9.5 Magnesium Troponin I High Sens 30.6 273.6 H* 08/09/20 05:18 WBC RBC Hgb Hct MCV MCH MCHC RDW Std Deviation RDW Coeff of Jack Plt Count MPV Immature Gran % (Auto) Neut % (Auto) Lymph % (Auto) Child[place] % (Auto) Eos % (Auto) Baso % (Auto) Absolute Neuts (auto) Absolute Lymphs (auto) Nucleated RBC % Sodium 138 Potassium 4.0 Chloride 104 Carbon Dioxide 29.0 Anion Gap 5 BUN 15 Creatinine 1.28 Estim Creat Clear Calc 58.81 Est GFR (MDRD) Af Amer 74 Est GFR (MDRD) Non-Af 61 BUN/Creatinine Ratio 11.7 Glucose 128 H Calcium 8.8 Magnesium 2.2 Troponin I High Sens 699.5 H* Cardiology Labs/Tests 08/09/20 00:45: WBC 8.0, RBC 5.47, Hgb 17.2 H, Hct 50.9, MCV 93.1, MCH 31.4, MCHC 33.8, Plt Count 207, MPV 10.3, Immature Gran % (Auto) 0.600, Neut % (Auto) 53.4, Lymph % (Auto) 33.7, [place] % (Auto) 4.1, Eos % (Auto) 6.6 H, Baso % (Auto) 1.6 H, Absolute Neuts (auto) 4.3, Nucleated RBC % 0 08/09/20 00:45: Sodium 136, Potassium 3.3 L, Chloride 101, Carbon Dioxide 30.0, Anion Gap 5, BUN 15, Creatinine 1.33 H, Est GFR (MDRD) Af Amer 71, Est GFR (MDRD) Non-Af 59 L, BUN/Creatinine Ratio 11.3, Glucose 183 H, Calcium 9.5 08/09/20 05:18: Sodium 138, Potassium 4.0, Chloride 104, Carbon Dioxide 29.0, Anion Gap 5, BUN 15, Creatinine 1.28, Est GFR (MDRD) Af Amer 74, Est GFR (MDRD) Non-Af 61, BUN/Creatinine Ratio 11.7, Glucose 128 H, Calcium 8.8, Magnesium 2.2 Rhythm: Normal sinus rhythm EKG: Normal sinus, right bundle branch block, anterior lateral myocardial infarction, age undetermined. Radiography Diagnostic Testing: Radiology Impression Chest X-Ray 08/09/20 00:55 IMPRESSION: No acute cardiopulmonary disease Electronically Signed: Ranjit Paz DO at 1:14 EDT Tel , Service support ,
[2020-08-09 11:06] LABS: International Normalized Ratio 1.2; Prothrombin Time (Protime)PT. 14.7 SECONDS (11.7-14.9)
[2020-08-09 11:07] LABS: Partial Thromboplast Time 35.1 Seconds (24.1-36.2)
[2020-08-09] MEDS: Isosorbide Mononitrate 60 MG Tablet PO ×2 (11:09→22:44)
[2020-08-09] MEDS: Pantoprazole Sodium 40 MG Tablet PO ×2 (11:09→22:44)
[2020-08-09] MEDS: Gabapentin 600 MG Tablet PO ×4 (11:09→22:44)
--- NOTE | 2020-08-09 12:32 | CL.D_ITS ---
Patient Name: SALAZAR HOLT Study Date: 08/09/2020 Performing: Kevin Albert MD Ht: 66.92 inches 170 cm : 1960 Wt: 178.57 lbs 81 kg Age: 60 Gender: male BSA: 1.93 PROCEDURE(S) PERFORMED [id number]/COR/LV CLINICAL PROFILE AND INDICATIONS Indications: Suspected CAD Heart Failure: None Stress/Imaging Stress/Image Study Performed: No CONCLUSIONS Severe single-vessel disease involving the previously stented left anterior descending artery and dif fuse disease noted in the circumflex artery and a totally occluded right coronary artery. RECOMMENDATIONS Referred for immediate PCI DESCRIPTION OF PROCEDURE The patient arrived to the procedure lab. The risks and benefits of the procedure as well as a full d escription of our services here and current unavailability of surgical backup were fully explained to the patient and/or their significant other prior to the catheterization. The Timeout was completed, verifying the correct patient and procedure. The patient's procedural site was prepped and draped in the usual fashion. Local anesthetic was given subcutaneously to right groin region with Lidocaine 2%. Local anesthetic was given subcutaneously to left groin region with Lidocaine 2%. Using a modified S eldinger technique, arterial access was obtained via the left femoral artery, a 5Fr sheath was insert ed. Left Coronary Artery selective angiography was performed in multiple views using a 5 Fr. JL4 cat heter. Left Ventriculography was performed in REILLY projection using a 5 Fr. Pigtail catheter. LV to AO pullback pressures were then recorded. CORONARY ANGIOGRAPHY DOMINANCE: Right Dominant LEFT HEART ASSESSMENT Left Ventricular Ejection Fraction: by LV Gram 30 % Anterior Hypokinesis - Severe Saphenous vein grafts were noted to be occluded on the previous catheterization. LEFT MAIN: Mild calcification LEFT ANTERIOR DESCENDING ARTERY: Multiple areas of stenting involving the entire left anterior descen ding artery. The mid segment has an hazy area with approximately 80% stenosis within the stent. The re is anterior in-stent stenosis of approximately 40% noted. CIRCUMFLEX ARTERY: Diffusely diseased left circumflex artery with approximately 40 to 50% stenosis no darrian throughout the vessel. RIGHT CORONARY ARTERY: is occluded GRAFTS: LEHMAN graft to the Mid LAD Atretic COLLATERAL FLOW: Collateral flow from Left to Right COMPLICATIONS PROCEDURE MEDICATIONS Versed 1 mg IV Fentanyl 50 mcg IV Versed 1 mg IV Oxygen: 2 L/min via nasal cannula Brilinta 180 mg PO @ 08/09/2020 12:24:50 Heparin 7000 unit(s) IV 08/09/2020 12:27:02 SUMMARY OF HEMODYNAMIC DATA Time AIR REST ECG 11:40:18 AO 105/76 (86) SA 12:08:54 LV 111/21, 31 12:15:07 LV 110/23, 29 12:15:13 LV 109/24, 30 12:16:25 LV 113/25, 32 12:16:31 LVp 113/26, 31 12:16:35 AOp 118/81 (97) 12:16:40 Signed By Kevin Albert MD On 08/09/2020 12:31:55 Kevin Albert MD
--- NOTE | 2020-08-09 13:10 | NURSING ---
This RN called and gave report to FAVIOLA Gaming in ICU.
--- NOTE | 2020-08-09 13:20 | PCIREPORT_ITS ---
PCI Cardiac Cath Report PCI Report: Procedure performed; 1. Successful PTCA of mid LAD stent stenosis with haziness Using NC balloon 3 x 30 mm, with reduction of the stenosis from 70% to 20% and maintenance of VIKKI-3 flow in the LAD. 2. Selective left common femoral artery angiography and hemostasis to be maintained with manual pressure. Preprocedure diagnosis; 62-year-old patient with extensive cardiac history with history of severe ischemic cardiomyopathy SP ICD implant, has CABG/coronary bypass surgery in [place] with occluded graft This presentation with symptoms of chest pain some radiation to the left arm patient continues to smoke and he had elevated high sensitive troponin and treated as non-ST elevation GA. Underwent today current angiography by his primary field care advocate Dr. Albert Showed left main has nonobstructive atherosclerosis, he has a large and long segment of stent to the entire LAD from proximal to the distal with haziness noted in the mid portion of the stent at the site of sidebranch/diagonal The left circumflex stent is patent, and the RCA is occluded from prior, LEHMAN to LAD is occluded from prior cardiac catheterization. Consent; Risk and benefit of the procedure explained detail to the patient elected to proceed informed consent obtained. Approach; Patient had peripheral vascular disease, access from the left femoral artery by Dr. Albert, exchanged for left common femoral artery sheath Interventional equipment; 1. 6 Kyr[place]z 3.5 EBU guide catheter 2. 0.014 run-through extra floppy 180 cm straight wire 3. NC Emerge MR 3 x 30 mm balloon. Procedure in detail; Angiographic view of cardiac catheterization reviewed and discussed with the primary field care advocate, We proceed with a 6 [place]yr[place]z 3.5 EBU guide catheter advanced ascending aorta and cannulated the left main without difficulty. Then will proceed with the run-through wire across the lesion in the LAD stent. Patient was given 180 mg of Brilinta and was given 7000 IU of heparin, then will proceed with balloon dilatation using the 3 x 30 mm NC balloon And we achieve an excellent result with maintenance of VIKKI III flow to the LAD. Intracoronary nitroglycerin is used and ACT level was acceptable. Conclusion; Successful PTCA of mid LAD stent using NC balloon Recommendation; 1. Patient advised cessation of smoking due to the risk of in-stent thrombosis and risk of in-stent stenosis 2. Patient is started on dual antiplatelet therapy and change from Plavix to Brilinta/aspirin for 1 year 3. Patient will follow up with the primary field care advocate Dr. Albert for medical management 4. If he had any further episodes of in-stent restenosis of this long segment of his stent he may need Brachytherapy. 5. We will maximize medical therapy/GDMT 6. Hemostasis will be maintained with manual pressure to the left common femoral artery area. Camille Guzman MD,FACC,[facility]
--- NOTE | 2020-08-09 13:26 | EKG12_ITS ---
Test Reason : POST PCI Blood Pressure : / mmHG Vent. Rate : 063 BPM Atrial Rate : 063 BPM P-R Int : 172 ms QRS Dur : 142 ms QT Int : 450 ms P-R-T Axes : 034 098 084 degrees QTc Int : 460 ms Electronic atrial pacemaker Right bundle branch block Anterolateral infarct , age undetermined Abnormal ECG When compared with ECG of 09-AUG-2020 08:44, MANUAL COMPARISON REQUIRED, DATA IS UNCONFIRMED Confirmed by JULIO SMART, TABATHA ([id number]), story editor MARILUZ PAGE ([id number]) on 08/13/2020 9:35:38 AM Referred By: SCARLET Confirmed By:TABATHA KIM MD
--- NOTE | 2020-08-09 13:59 | CRPHASE1_ITS ---
Patient Communication Former Patient:: Phase II PHII Cardiac Rehab Discussed with Patient:: Yes Guide to Cardiac Rehab Given to Patient:: Yes Cardiac Rehab Facility Choice List Given to Patient:: Yes Choice Program [facility] CR PHII:: Communication Given to CR Primary Care Md:: Camille Guzman Refer Phase II Cardiac Rehab:: Yes Sessions:: 36 sessions - 3 days/wk, 12 weeks Cardiac Rehabilitation Info Cardiac Rehabilitation Program Information: Cardiac Rehabilitation is important for patients like you who are recovering from a heart problem. Cardiac rehabilitation programs are recognized as integral to the continued care of the patient with coronary heart disease. The cardiac rehabilitation program is designed to optimize a patient's physical, psychological, and social functioning. Health home care scheduler work in cardiac rehabilitation programs and assist you with getting the treatments you need to get stronger and healthier - like exercise, healthy eating habits, and medications. Cardiac rehabilitation has been show to help people with heart problems live longer and have better life enjoyment than people who do not go to cardiac rehabilitation. Please contact the Cardiac Rehabilitation Program at [facility] at in two weeks if you have not heard from them.
--- NOTE | 2020-08-09 14:00 | CRPH1.INST_ITS ---
General Education CAD and cardiac anatomy and function:: Patient communicates acknowledgment, Needs reinforcement Explanation of diagnoses and procedures:: Patient communicates acknowledgment, Needs reinforcement Sign/Symptoms of [place]:: Patient communicates acknowledgment, Needs reinforcement Antiplatelet therapy: Patient communicates acknowledgment, Needs reinforcement Proper use of NTG-SL: Patient communicates acknowledgment, Needs reinforcement Emergency procedures and activation of EMS: Patient communicates acknowledgment, Needs reinforcement Compliance of all prescribed medications: Patient communicates acknowledgment, Needs reinforcement Smoking Patient Nicotine/Smoking Risk Factors Are:: Cigarettes Recommendations Include:: Smoking cessation strategies/Smoking packet, Participation in a smoking cessation program Nicotine/Smoking Response Code:: Patient communicates acknowledgment, Needs re inforcement Dyslipidemia Patient Dyslipidemia Risk Factors Are:: Total Cholesterol, Triglycerides, HDL, LDL Recommendations Include:: Lipid profile not available, Reviewed NCEP/ATP guidelines, Therapeutic Lifestyle Change dietary guidelines Dyslipidemia Response Code:: Patient communicates acknowledgment, Needs reinforcement Overweight/Obesity Patient Overweight/Obesity Risk Factors Are:: Overweight = 26-29 Recommendations Include:: Weight loss of 5-10%, Reduced calorie diet, Exercise 5-7 times/week Overweight/Obesity:: Patient communicates acknowledgment, Needs reinforcement Hypertension Recommendations Include:: Maintain BP <130/85, DASH dietary guidelines, Decrease/maintain normal body weight, Moderation of ETOH Hypertension:: Patient communicates acknowledgment, Needs reinforcement Heart Disease Patient Heart Disease Risk Factors Are:: Previous cardiac event Recommendations Include:: Educated family members of their risk, Educated family members of importance of prevention of heart disease Heart Disease Response Code:: Patient communicates acknowledgment, Needs reinforcement Sedentary Patient Sedentary Risk Factors Are:: Lack of regular exercise Recommendations Include:: Aerobic exercise 5-7 times/week for 20-30 minutes continuously, Benefits of regular exercise, Discussed home walking program, Monitored Outpatient Cardiac Rehab Sedentary Response Code:: Patient communicates acknowledgment, Needs reinforcement Stress Recommendations Include:: Identification of stressors, and assessment of coping skills, Stress management techniques Stress Response Code:: Patient communicates acknowledgment, Needs reinforcement
[2020-08-09] MEDS: Potassium Chloride Oral Tablet 20 MEQ PO (14:49)
[2020-08-09] MEDS: Furosemide 40 MG Tablet PO ×2 (14:49→22:46)
--- NOTE | 2020-08-09 15:15 | PCM.PN.HOSP ---
Documented by User: Oral MCGOVERN 08/09/20 15:22 Subjective Subjective resting in bed, alert and oriented x3.Patient is a 60-year-old male Patient still has ongoing chest pain and shortness of breath and shortness of breath is chronic., patient reports chest pain is amenable to nitroglycerin Denies hemoptysis, sputum production, fever, chills, N/V/D. Objective Data Objective Data Vital Signs: Vital Signs Temp Pulse Resp BP Pulse Ox 97.7 F L 65 14 148/67 H 99 08/09/20 10:22 08/09/20 14:30 08/09/20 14:30 08/09/20 14:30 08/09/20 14:30 Oxygen Flow Rate (L/min) 2 Oxygen Delivery Method Room Air Weight: 178 lb 9.191 oz Body Mass Index (BMI) 27.9 Intake & Output: Intake and Output for Last 24 Hours 08/07/20 08/08/20 08/09/20 23:59 23:59 23:59 Intake Total 267.5 / 267.5 Output Total 150 / 150 Balance 117.5 / 117.5 Lab / Micro Data Result Diagrams: 08/09/20 00:45 08/09/20 05:18 Labs: Laboratory Results - last 24 hr 08/09/20 08/09/20 08/09/20 00:45 00:45 03:15 WBC 8.0 RBC 5.47 Hgb 17.2 H Hct 50.9 MCV 93.1 MCH 31.4 MCHC 33.8 RDW Std Deviation 51.3 H RDW Coeff of Jack 14.9 H Plt Count 207 MPV 10.3 Immature Gran % (Auto) 0.600 Neut % (Auto) 53.4 Lymph % (Auto) 33.7 Polk % (Auto) 4.1 Eos % (Auto) 6.6 H Baso % (Auto) 1.6 H Absolute Neuts (auto) 4.3 Absolute Lymphs (auto) 2.70 Nucleated RBC % 0 PT INR APTT Sodium 136 Potassium 3.3 L Chloride 101 Carbon Dioxide 30.0 Anion Gap 5 BUN 15 Creatinine 1.33 H Estim Creat Clear Calc 56.60 Est GFR (MDRD) Af Amer 71 Est GFR (MDRD) Non-Af 59 L BUN/Creatinine Ratio 11.3 Glucose 183 H Calcium 9.5 Magnesium Troponin I High Sens 30.6 273.6 H* 08/09/20 08/09/20 05:18 10:37 WBC RBC Hgb Hct MCV MCH MCHC RDW Std Deviation RDW Coeff of Jack Plt Count MPV Immature Gran % (Auto) Neut % (Auto) Lymph % (Auto) Polk % (Auto) Eos % (Auto) Baso % (Auto) Absolute Neuts (auto) Absolute Lymphs (auto) Nucleated RBC % PT 14.7 INR 1.2 APTT 35.1 Sodium 138 Potassium 4.0 Chloride 104 Carbon Dioxide 29.0 Anion Gap 5 BUN 15 Creatinine 1.28 Estim Creat Clear Calc 58.81 Est GFR (MDRD) Af Amer 74 Est GFR (MDRD) Non-Af 61 BUN/Creatinine Ratio 11.7 Glucose 128 H Calcium 8.8 Magnesium 2.2 Troponin I High Sens 699.5 H* Radiography Diagnostic Testing: Radiology Impression Chest X-Ray 08/09/20 00:55 IMPRESSION: No acute cardiopulmonary disease Electronically Signed: Ranjit Paz DO at 1:14 EDT Tel , Service support , Physical Exam Const alert, oriented x3 and no apparent distress HEENT head/scalp atraumatic and moist oral mucous membranes Head and Scalp: normocephalic Eyes EOMs intact bilaterally and conjunctivae normal Neck no lymphadenopathy, supple and no JVD Resp Effort and Inspection: abnormal respiratory pattern, tachypneic and labored Auscultation: wheezes and diminished lung sounds Cardio regular rate, regular rhythm, no murmurs and no JVD Cardio Narrative: Reports ongoing chest pain that is amenable to Nitroglycerin. GI normal to inspection, nondistended, normoactive bowel sounds, soft to palpation and non-tender Extremity normal to inspection, full ROM and no clubbing, cyanosis or edema Skin no rashes or lesions noted, no wounds, skin turgor normal and no jaundice Neuro CN's II-XII intact bilaterally Psych affect normal Assessment & Plan Assessment/Plan (1) Chest pain: QUALIFIERS: Chest pain type: unspecified Qualified Code(s): R07.9 - Chest pain, unspecified (2) Coronary artery disease: QUALIFIERS: Associated angina: angina presence unspecified Coronary Disease-Associated Artery/Lesion type: unspecified vessel or lesion type [place] vs. transplanted heart: unspecified whether [place] or transplanted heart Qualified Code(s): I25.10 - Atherosclerotic heart disease of [place] coronary artery without angina pectoris (3) Ischemic cardiomyopathy: (4) CHF (congestive heart failure): PLAN: 1) Chest Pain/ACS rule out Catheterization on 08/09 demonstrated severe single-vessel disease of the previously stented LAD and diffuse disease noted in the circumflex artery and total occlusion of the RCA. Plan; admit to ICU and plan for immediate PCI. 2) heart failure with reduced ejection fraction Documented ejection fraction of 35% from January 2020. Plan; continue with furosemide and lisinopril. 3) CAD History of CABG and stents as above. Plan; continue with aspirin, Clinoril, isosorbide, ranolazine and lisinopril. DVT prophylaxis -not indicated due to invasive intervention. Patient seen by Oral Mondragon PA-C, under the supervision of Dr. Rain. Documented by User: Dr. Martine Rain MD 08/10/20 07:27 Objective Data Lab / Micro Data Result Diagrams: 08/09/20 00:45 08/09/20 05:18 Charges/Coding Addendum Addendum: This patient was seen in conjunction with FROILAN Carreno. I have independently interviewed and examined the patient and reviewed pertinent historical, laboratory, and other data. Please refer to FROILAN Carreno's note for his patient's presentation, findings, and recommendations. I have reviewed and his note and concur with his documentation Patient was seen and examined. He complains of CVA chest pain. Has been requiring morphine [id number]. States nitro does not help. Vitals have been stable. Troponins have trended. Discussed with cardiology, patient will go for cardiac cath today. Physical Exam: Gen: Comfortable, not pale, not jaundiced CVS:HS I +II, regular, no murmurs RESP: CTA GI: BS present and normal, soft, nontender, no palpable organs EXT:No edema ASSESSMENT: 1. Acute non-STEMI 2. Chronic systolic CHF, EF 35% 3. CAD status post CABG 4. PAD 5. GERD 6. Anxiety/depression Plan: Continue per cardiology evaluation Visit Charges Inpatient E&M: 63578 [facility] Hosp L3
[2020-08-09 16:08] LABS: ACT Activated Clotting Time 197 sec (74-137)
[2020-08-09 16:09] LABS: ACT Activated Clotting Time 164 sec (74-137)
[2020-08-09] MEDS: oxyCODONE 5 MG Tablet PO ×2 (17:42→22:43)
[2020-08-09] MEDS: Amitriptyline 25 MG Tablet PO (22:43)
[2020-08-09] MEDS: Atorvastatin Calcium 80 MG Tablet PO (22:44)
[2020-08-10] VITALS (15 sets, daily range): BP systolic 84–119; BP diastolic 40–72; PULSE 67–85; RESP 12–19; TEMP 36.6–36.7; O2SAT 92–99
[2020-08-10] MEDS: Morphine 4 MG/ML Syringe IV ×2 (00:43→04:26)
[2020-08-10] MEDS: Albuterol 2.5 MG/3 ML VIAL.NEB. INHALATION (07:11)
[2020-08-10] MEDS: Aspirin E.C. 81 MG Tablet PO (08:16)
[2020-08-10] MEDS: Furosemide 40 MG Tablet PO (08:17)
[2020-08-10] MEDS: Isosorbide Mononitrate 60 MG Tablet PO (08:17)
[2020-08-10] MEDS: Potassium Chloride Oral Tablet 20 MEQ PO (08:17)
[2020-08-10] MEDS: Gabapentin 600 MG Tablet PO ×2 (08:17→12:01)
[2020-08-10] MEDS: Metoprolol(XL)Succ 50 MG Tablet PO (08:18)
[2020-08-10] MEDS: Clopidogrel Bisulfate 75 MG Tablet PO (08:18)
[2020-08-10] MEDS: Ranolazine 500 MG Tablet 1000 MG PO (08:18)
[2020-08-10] MEDS: Pantoprazole Sodium 40 MG Tablet PO (08:18)
[2020-08-10] MEDS: Lisinopril 5 MG Tablet PO (08:19)
[2020-08-10] MEDS: Amitriptyline 25 MG Tablet PO (08:19)
--- NOTE | 2020-08-10 10:39 | PCM.PN.HOSP ---
Objective Data Objective Data Vital Signs: Vital Signs Temp Pulse Resp BP Pulse Ox 97.9 F 75 17 112/60 93 08/10/20 07:00 08/10/20 08:18 08/10/20 07:13 08/10/20 08:18 08/10/20 07:13 Oxygen Flow Rate (L/min) 2 Oxygen Delivery Method Room Air Weight: 90.083 kg Body Mass Index (BMI) 27.9 Intake & Output: Intake and Output for Last 24 Hours 08/08/20 08/09/20 08/10/20 23:59 23:59 23:59 Intake Total 267.5 / 667.5 640 / 640 Output Total 700 / 2100 1700 / 1700 Balance -432.5 / -1432.5 -1060 / -1060 Lab / Micro Data Result Diagrams: 08/09/20 00:45 08/09/20 05:18 Labs: Laboratory Results - last 24 hr 08/09/20 08/09/20 08/09/20 10:37 14:32 15:46 PT 14.7 INR 1.2 APTT 35.1 Activated Clotting Time 197 H 164 H
--- NOTE | 2020-08-10 12:21 | PCM.DC ---
Discharge Instructions Diet Discharge Diet: Low fat / Low cholesterol, 6 Cup Fluid Restriction and 2000 mg Sodium Diet Activity Discharge Activity: Return to Normal Activity Follow Up Care Test Results: Test results from this visit will be discussed in further detail at your follow-up appointment, if applicable. Discharge Plan Admission Admit Date/Time: 08/09/20 02:56 Primary Reason for Your Visit: Chest pain, Acute NSTEMI Attending Provider: Martine Rain Primary Care Provider: Oral Manuel Consulting Providers: Camille Guzman Instructions Patient Instructions: ED Chest Pain, Noncardiac Additional Instructions / Restrictions: Continue to follow a low-salt, low-fat diet. Continue to remain active. Take note of changes to your medications. Discharge Orders/Prescriptions Prescriptions: New Brilinta 90 mg tablet 90 mg PO BID 30 Days Qty: 60 RF: 0 Continued pantoprazole 40 mg tablet,delayed release (DR/EC) 40 mg PO BID RF: 0 gabapentin 600 mg tablet 600 mg PO 4X/DAY RF: 0 albuterol sulfate 0.63 mg/3 mL solution for nebulization 0.63 mg INHALATION Q4H PRN (Reason: shortness of breath or wheezing) Qty: 270 RF: 4 amitriptyline 25 mg tablet 25 mg PO QHS RF: 0 alendronate 70 mg tablet 70 mg PO QWEEK RF: 0 ranolazine 1,000 mg tablet extended release 12 hr 1,000 mg PO BID 30 Days Qty: 60 RF: 11 lisinopril 5 mg tablet 5 mg PO DAILY RF: 0 aspirin 81 MG tablet 81 mg PO DAILY@0800 RF: 0 magnesium oxide 400 MG tablet 400 mg PO DAILY RF: 0 furosemide 40 MG tablet 40 mg PO BID RF: 0 atorvastatin 80 MG tablet 80 mg PO QHS RF: 0 metoprolol succinate 50 MG tablet 50 mg PO DAILY RF: 0 isosorbide mononitrate 60 mg tablet extended release 24 hr 60 mg PO BID Qty: 180 RF: 2 potassium chloride 20 mEq tablet,ER particles/crystals 20 meq PO DAILY Qty: 90 RF: 3 Discontinued clopidogrel 75 MG tablet 75 mg PO DAILY RF: 0 Referrals / Follow Up: Kevin Albert MD [STAFF PHYSICIAN] - Within 2 Weeks Oral Manuel MD [Primary Care Provider] - Within 1 Week Disposition Disposition (needs filled in before D/C Order can be placed): Home, Self Care
--- NOTE | 2020-08-10 12:24 | DS.PCM_ITS ---
Providers Date of Admission: 08/09/20 Date of Discharge: 08/10/20 Primary Care Physician: Dr. Oral Manuel MD Consultations 08/09/20 02:57 Consult: Cardiology Routine Consulting Provider: Camille Guzman Reason for Consult: chest pain EMERGENT Consult: No MD Notified: Yes Date Notified: 08/09/20 Time Notified: 07:38 Method of Notification: Text Reason For Visit: CHEST PAIN Diagnosis Discharge Diagnosis (1) Chest pain: Status: Resolved Code(s): R07.9 - Chest pain, unspecified Qualifiers: Chest pain type: unspecified Qualified Code(s): R07.9 - Chest pain, unspecified (2) Coronary artery disease: Status: Chronic Code(s): I25.10 - Atherosclerotic heart disease of [place] coronary artery without angina pectoris Qualifiers: Associated angina: angina presence unspecified Coronary Disease-Associ ated Artery/Lesion type: unspecified vessel or lesion type [place] vs. [place] heart: unspecified whether [place] or transplanted heart Qualified Code(s): I25.10 - Atherosclerotic heart disease of [place] coronary artery without angina pectoris (3) Ischemic cardiomyopathy: Status: Chronic Code(s): I25.5 - Ischemic cardiomyopathy (4) CHF (congestive heart failure): Status: Chronic Code(s): I50.9 - Heart failure, unspecified (5) NSTEMI (non-ST elevated myocardial infarction): Status: Resolved Code(s): I21.4 - Non-ST elevation (NSTEMI) myocardial infarction Medications at Discharge Home Medications aspirin 81 mg PO DAILY@0800 11/07/18 magnesium oxide 400 mg PO DAILY 11/07/18 pantoprazole 40 mg tablet,delayed release 40 mg PO BID 11/15/18 potassium chloride 20 mEq tablet,extended release(part/cryst) 20 meq PO DAILY # 90 tablet 07/06/19 albuterol sulfate 0.63 mg/3 mL solution for nebulization 0.63 mg INHALATION Q4H PRN #270 ml 07/12/19 amitriptyline 25 mg tablet 25 mg PO QHS 08/17/19 furosemide 40 mg PO BID 02/13/20 atorvastatin 80 mg PO QHS 02/15/20 metoprolol succinate 50 mg PO DAILY 02/15/20 alendronate 70 mg tablet 70 mg PO QWEEK tablet 03/15/20 gabapentin 600 mg tablet 600 mg PO 4X/DAY tablet 03/15/20 isosorbide mononitrate 60 mg tablet,extended release 24 hr 60 mg PO BID #180 tablet 05/20/20 lisinopril 5 mg tablet 5 mg PO DAILY tablet 06/10/20 ranolazine 1,000 mg tablet,extended release,12 hr 1,000 mg PO BID 30 Days #60 tablet 06/10/20 ticagrelor [Brilinta] 90 mg PO BID 30 Days #60 tab 08/10/20 Hospital Course Operations None Procedures Cardiac catheterization Summary of Care Provided Minutes Spent on Discharge: 45 Hospital Course: 60 y/o male with past medical history of CAD status post CABG, status post multiple stents, ischemic cardiomyopathy status post ICD who presented with chest pain. Patient gives a history of going to bed the night before, woke up with acid reflux symptoms and worsening chest discomfort that went across his chest and down his arm. Symptoms felt like his previous [place]. Patient had a recent cardiac cath in May 2019 that showed moderate to severe CAD with previous stented LAD with no focal areas of high-grade stenosis but significant diffuse disease: Left circumflex artery previously stented and patent: Totally occluded right coronary artery with [id number] collaterals. Medical therapy was recommended Patient was admitted to PCU, his troponins were trended and they were elevated. Cardiology was consulted. He underwent cardiac catheterization which showed a large and long segment of in-stent restenosis to the entire LAD from proximal to distal. His left circumflex stent was patent. His RCA was occluded from previous. His LEHMAN to LAD is occluded from prior catheterization. He had successful PTCA of the mid LAD stent in-stenosis with reduction of stenosis from 70% to 20%. Patient was monitored overnight with no acute events. He was discharged home on Brilinta and aspirin. He was strongly recommended to stop smoking. He will follow up with cardiology in the outpatient. Physical Exam Narrative Physical exam: General: Alert, Oriented x3, Cooperative, No apparent distress, Well developed HEENT: Atraumatic Oral: Moist Mucosa Neck: Supple Lungs: Clear to auscultation Cardiovascular: HS I+II, regular, no murmurs Abdomen: Bowel Sounds Present, Soft, Non Tender Extremities: No edema Skin: No rashes, No breakdown Neurological: Grossly intact Psych/Mental Status: Appropriate Weight / BMI Weight Weight: 90.083 kg Body Mass Index (BMI) 27.9 ABG / Lab / Microbiology Data Result Diagrams: 08/09/20 00:45 08/09/20 05:18 Laboratory: Laboratory Results - last 24 hr 08/09/20 08/09/20 14:32 15:46 Activated Clotting Time 197 H 164 H D/C Instructions Discharge Diet: Low fat / Low cholesterol, 6 Cup Fluid Restriction and 2000 mg Sodium Diet Meaningful Use Info Meaningful Use Diagnoses (Choose all that apply): AMI AMI/Post PCI/Angioplasty Aspirin given w/in 24hrs of arrival?: Yes ASA at discharge?: Yes Antiplatelet Therapy at Discharge:: Yes Statins at discharge?: Yes [place]/ARB at discharge?: Yes Beta Shante at discharge?: Yes Done w/ Acute [place] measure.: Yes Documented LVEF (%): 30 Discharge Plan Admission Admit Date/Time: 08/09/20 02:56 Primary Reason for Your Visit: Chest pain, Acute NSTEMI Attending Provider: Martine Rain Primary Care Provider: Oral Manuel Consulting Providers: Camille Guzman Instructions Patient Instructions: ED Chest Pain, Noncardiac Additional Instructions / Restrictions: Continue to follow a low-salt, low-fat diet. Continue to remain active. Take note of changes to your medications. Discharge Orders/Prescriptions Prescriptions: New Brilinta 90 mg tablet 90 mg PO BID 30 Days Qty: 60 RF: 0 Continued pantoprazole 40 mg tablet,delayed release (DR/EC) 40 mg PO BID RF: 0 gabapentin 600 mg tablet 600 mg PO 4X/DAY RF: 0 albuterol sulfate 0.63 mg/3 mL solution for nebulization 0.63 mg INHALATION Q4H PRN (Reason: shortness of breath or wheezing) Qty: 270 RF: 4 amitriptyline 25 mg tablet 25 mg PO QHS RF: 0 alendronate 70 mg tablet 70 mg PO QWEEK RF: 0 ranolazine 1,000 mg tablet extended release 12 hr 1,000 mg PO BID 30 Days Qty: 60 RF: 11 lisinopril 5 mg tablet 5 mg PO DAILY RF: 0 aspirin 81 MG tablet 81 mg PO DAILY@0800 RF: 0 magnesium oxide 400 MG tablet 400 mg PO DAILY RF: 0 furosemide 40 MG tablet 40 mg PO BID RF: 0 atorvastatin 80 MG tablet 80 mg PO QHS RF: 0 metoprolol succinate 50 MG tablet 50 mg PO DAILY RF: 0 isosorbide mononitrate 60 mg tablet extended release 24 hr 60 mg PO BID Qty: 180 RF: 2 potassium chloride 20 mEq tablet,ER particles/crystals 20 meq PO DAILY Qty: 90 RF: 3 Discontinued clopidogrel 75 MG tablet 75 mg PO DAILY RF: 0 Referrals / Follow Up: Kevin Albert MD [STAFF PHYSICIAN] - Within 2 Weeks Oral Manuel MD [Primary Care Provider] - Within 1 Week Disposition Disposition (needs filled in before D/C Order can be placed): Home, Self Care Charges/Coding Visit Charges Inpatient E&M: 12645 Disch Hosp
--- NOTE | 2020-08-10 13:09 | CASEMGMT ---
TC to pt pharmacy. Pt cost for Brilinta will be $47/month. FAVIOLA ALCOCER in to pt room. Gave savings card and explanation provided. Pt denied further needs. 1325-RN CARLYN in to discuss LANG form with patient. RN CM explained LANG form, patient voiced understanding. Pt signed form and filed in chart. Pt provided with a copy of signed LANG form. Patient had no further questions or concerns at this time.
--- NOTE | 2020-08-10 13:15 | PN.CARD_ITS ---
Subjective Subjective Patient seen today at bedside and discuss cardiac care plan with the nursing staff and the medical team Post PTCA of long segment of LAD stent no symptoms of chest pain today. Left groin no hematoma. Objective Data Vital Signs: Vital Signs Temp Pulse Resp BP Pulse Ox 98.0 F 74 14 87/40 L 94 08/10/20 12:09 08/10/20 12:09 08/10/20 12:09 08/10/20 12:09 08/10/20 12:09 Oxygen Flow Rate (L/min) 2 Oxygen Delivery Method Room Air Weight: 198 lb 9.6 oz Body Mass Index (BMI) 27.9 Intake & Output: Intake and Output for Last 24 Hours 08/08/20 08/09/20 08/10/20 23:59 23:59 23:59 Intake Total 267.5 / 667.5 1120 / 1120 Output Total 700 / 2100 2200 / 2200 Balance -432.5 / -1432.5 -1080 / -1080 Lab / Micro Data Result Diagrams: 08/09/20 00:45 08/09/20 05:18 Labs: Laboratory Results - last 24 hr 08/09/20 08/09/20 14:32 15:46 Activated Clotting Time 197 H 164 H Cardiology Labs/Tests Rhythm: Underlying normal sinus rhythm ECHO: EF is 35% Physical Exam Narrative Patient seen and evaluated and examined today at bedside Alert orientated x3 Mild bruises at the left groin/cardiac catheterization site with no evidence of hematoma or pseudoaneurysm Cardiac examination cardiac rhythm is sinus rhythm S1-S2 is regular there is no murmur no systolic or diastolic murmur no pericardial rub Chest examination clear to auscultation bilaterally Examination abdomen soft Examination lower extremity no clubbing no cyanosis no lower extremity edema. Assessment & Plan Assessment/Plan (1) CHF (congestive heart failure): (2) Chest pain: QUALIFIERS: Chest pain type: unspecified Qualified Code(s): R07.9 - Chest pain, unspecified (3) PAOD (peripheral arterial occlusive disease): (4) NSTEMI (non-ST elevated myocardial infarction): PLAN: Patient 60-year-old with extensive cardiac history As chest pain on this admission with a clinical diagnosis of non-ST elevation [place] Underwent cardiac catheterization by his primary staff mechanical engineer . Patient had extensive cardiac history with a prior coronary bypass surgery and coronary artery stent to the LAD and to the left circumflex RCA is occluded with collateralization from the LAD to the distal RCA Also patient has severe diastolic dysfunction ejection fraction of around 35%. And has haziness in the mid LAD stent underwent PTCA successfully Postprocedure patient remained stable no symptoms of chest pain reported Examination of the site of the axis no evidence of hematoma Recommendation; 1. I recommended dual antiplatelet therapy with Brilinta low-dose aspirin for 1 year Patient will follow up with his primary staff mechanical engineer for continuation of cardiac care and medical management. (5) Atherosclerosis of coronary artery bypass graft of [place] heart with angina pectoris: (6) Peripheral vascular disease of extremity with claudication: (7) Stroke: QUALIFIERS: CVA mechanism: unspecified Qualified Code(s): I63.9 - Cerebral infarction, unspecified (8) H/O coronary artery bypass surgery: (9) History of implantable cardiac defibrillator (ICD): (10) Essential (primary) hypertension: (11) HLD (hyperlipidemia): QUALIFIERS: Hyperlipidemia type: unspecified Qualified Code(s): E78.5 - Hyperlipidemia, unspecified
--- NOTE | 2020-08-12 13:44 | CASEMGMT ---
FAVIOLA ALCOCER Discharge Follow-up Phone Call: DEANGELO: Emanuel Strata: 3 Call Date: 08/12/20 Discharge Date: 08/10/20 Time of Call: 1345 Duration: 3 min Admitting Diagnosis: Chest pain FAVIOLA ALCOCER completed follow-up phone call after recent hospitalization. Patient states he is doing well. Patient had no questions regarding discharge instructions. Patient states he was able to fill prescription without any issues. Patient had called and scheduled his follow-up appts. Patient had no further questions or concerns at this time.
== END 2020-08-10 13:55 | disposition home or self-care (01) ==
LOC: ED 02:15 → PCU 03:11 → ICU 13:35
PROVIDERS: Internal Medicine Interventional Cardiology; Emergency Provider Emergency Medicine; PCP Family Medicine; Visit Provider Internal Medicine
DX: R07.89 Other chest pain (principal); I25.10 Atherosclerotic heart disease of native coronary artery without angina pectoris; I25.5 Ischemic cardiomyopathy; I25.82 Chronic total occlusion of coronary artery; J44.9 Chronic obstructive pulmonary disease, unspecified; K21.9 Gastro-esophageal reflux disease without esophagitis; I25.2 Old myocardial infarction; G47.33 Obstructive sleep apnea (adult) (pediatric); I73.9 Peripheral vascular disease, unspecified; E78.5 Hyperlipidemia, unspecified; M06.9 Rheumatoid arthritis, unspecified; F17.210 Nicotine dependence, cigarettes, uncomplicated; F41.8 Other specified anxiety disorders; I11.0 Hypertensive heart disease with heart failure; E87.6 Hypokalemia; I50.22 Chronic systolic (congestive) heart failure; Z79.899 Other long term (current) drug therapy; Z79.82 Long term (current) use of aspirin; Z79.02 Long term (current) use of antithrombotics/antiplatelets; Z86.73 Personal history of transient ischemic attack (TIA), and cerebral infarction without residual deficits; Z95.810 Presence of automatic (implantable) cardiac defibrillator; Z95.5 Presence of coronary angioplasty implant and graft
CPT/HCPCS: 36415; 71045; 80048; 83735; 84484; 85025; 85347; 85610; 85730; 92920; 93005; 93458; 94640; 96361; 96372; 96374; 96376; 97802; 99152; 99153; 99218; 99251; 99285; 99406; Q9967; A4216; C1725; C1769; C1887; G0378; G0463

== ENCOUNTER → 2020-08-16 11:21 | Outpatient (CLI) | payer MEDICARE, SELFPAY ==
[2018-12-13 11:07] VITALS: BMI 26.3
[2020-08-09 03:00] VITALS: BMI 27.9
--- NOTE | 2020-08-16 11:22 | RAD_ITS ---
HISTORY: Right chest wall injury. TECHNIQUE: XR Ribs Unilateral Min 2 Views. # of images incl. paperwork: 4. COMPARISON: Chest same day. FINDINGS: OSSEOUS STRUCTURES: No acute displaced rib fracture. LUNGS: Mild atelectasis or inflammation in the right upper and lower lung. Cardiac pacemaker noted.. RAD/Ribs Unil 2V No CXR IMPRESSION: No acute displaced rib fracture identified. at 1435 Reported and signed by: Maylin Wilson MD Electronically Signed: Maylin Wilson MD at 14:34 EDT Tel , Service support ,
--- NOTE | 2020-08-16 11:22 | RAD_ITS ---
HISTORY: Cough. TECHNIQUE: XR Chest 2 Views. # of images incl. paperwork: 2. COMPARISON: 08/09/2020. FINDINGS: CARDIOMEDIASTINAL STRUCTURES: Cardiac silhouette not enlarged with postoperative changes of the mediastinum and cardiac pacemaker again noted. Mediastinal contour unremarkable. LUNGS: Mild linear opacities in the right upper and bilateral lower lungs. PLEURA: No pleural effusion or pneumothorax. OSSEOUS STRUCTURES: Degenerative change. RAD/Chest PA and Lateral IMPRESSION: Mild atelectasis or inflammation bilaterally. at 1433 Reported and signed by: Maylin Wilson MD Electronically Signed: Maylin Wilson MD at 14:32 EDT Tel , Service support ,
== END ==
PROVIDERS: PCP Family Medicine; Referring Provider Family Medicine; Visit Provider Family Medicine
DX: R05 Cough (principal); S29.9XXA Unspecified injury of thorax, initial encounter; X58.XXXA Exposure to other specified factors, initial encounter; Y93.9 Activity, unspecified; Y92.9 Unspecified place or not applicable; Y99.9 Unspecified external cause status
CPT/HCPCS: 71046; 71100

== ENCOUNTER 2020-08-23 12:42 | Emergency (ER) | payer MEDICARE, SELFPAY ==
[2018-12-13 11:07] VITALS: BMI 26.3
[2020-08-09 03:00] VITALS: BMI 27.9
[2020-08-23] VITALS (11 sets, daily range): BP systolic 93–113; BP diastolic 63–78; PULSE 89–107; RESP 13–28; TEMP 36.7; O2SAT 93–98; BMI 31.2
--- NOTE | 2020-08-23 13:22 | EKG12_ITS ---
Test Reason : CP Blood Pressure : / mmHG Vent. Rate : 105 BPM Atrial Rate : 105 BPM P-R Int : 160 ms QRS Dur : 138 ms QT Int : 372 ms P-R-T Axes : 032 117 051 degrees QTc Int : 491 ms Sinus tachycardia Right bundle branch block Anterolateral infarct , age undetermined Abnormal ECG Confirmed by JULIO SMART, TABATHA ([id number]), publishing editor MARILUZ PAGE ([id number]) on 08/26/2020 1:13:24 PM Referred By: DANA Confirmed By:TABATHA KIM MD
--- NOTE | 2020-08-23 13:33 | CT_ITS ---
STUDY: CT HEAD STROKE PROTOCOL W/O CONTRAST INJECTION REASON FOR EXAM: Male, 60 years old. Neuro deficit, acute, stroke suspected RADIATION DOSAGE (If Supplied By Facility): CTDIvol = ( 44.99 ) mGy, DLP = ( a 46.73 ) mGycm TECHNIQUE: Transaxial CT imaging of the brain was performed without administration of intravenous contrast material. Individualized dose optimization techniques were used for this CT. COMPARISON: Comparison is made with prior study dated 04/22/2020. FINDINGS: Normal soft tissue structures. Normal calvarium. There is mild cerebral atrophy with widening of the extra-axial spaces and ventricular dilatation. Normal white matter tracts of the cerebral hemispheres. Old lacunae in the insular cortex of the left temporal lobe. Normal brainstem. There is mild cerebellar atrophy. There is no intracranial hemorrhage. There are no findings of an acute ischemic infarction. Atherosclerotic calcification of the cavernous portions of the internal carotid arteries bilaterally Normal visualized paranasal sinuses. CT/STROKE Brain/Head without Cont IMPRESSION: Chronic involutional changes of the brain. 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 N.B. : The above Results were Read Back by Geovany Spring MD to Curt Gilman and understanding confirmed on 08/23/2020 13:50:24 (ET). Electronically Signed: Geovany Spring MD at 13:51 EDT , Service support ,
--- NOTE | 2020-08-23 13:34 | CT_ITS ---
STUDY: CTA HEAD AND NECK WITH CONTRAST REASON FOR EXAM: Male, 60 years old. Neuro deficit, acute, stroke suspected RADIATION DOSAGE (If Supplied By Facility): CTDIvol = ( 20.46 ) mGy, DLP = ( 2039.03 ) mGycm TECHNIQUE: CT angiography was performed with a multi-detector CT scanner. Data acquisition was obtained from the skull base through the vertex following intravenous administration of IV 100mL Isovue-370. MIP images were reconstructed from the axial data set. Post-processing of the angiographic images was performed, with multiplanar reformation and 3D reconstruction. Individualized dose optimization techniques were used for this CT. COMPARISON: No relevant priors. FINDINGS: Normal bilateral petrous carotid arteries. There is calcified plaque formation of the right cavernous carotid artery, without a cross-sectional luminal stenosis. There is calcified plaque formation of the left cavernous carotid artery, without a cross-sectional luminal stenosis. Normal right A1 segments of the anterior cerebral artery. Normal left A1 segments of the anterior cerebral artery. Normal intact anterior communicating artery (ACOM). Normal bilateral A2 segments of the anterior cerebral arteries. Normal right M1 and M2 segments of the middle cerebral arteries, with a normal M1 bifurcation. Normal left M1 and M2 segments of the middle cerebral arteries, with a normal M1 bifurcation. Normal right posterior communicating artery (PCOM). Normal left posterior communicating artery (PCOM). Normal bilateral vertebral arteries. Normal basilar artery with a normal basilar bifurcation. The visualized bilateral superior cerebellar (SCA) arteries are normal. Normal bilateral P1, P2 and visualized P3 segments of the posterior cerebral arteries. There is no demonstrated aneurysm of the [place]. AORTIC ARCH: There is atherosclerotic calcific plaque formation of the aortic arch and great vessels arising from the aortic arch, without a hemodynamically significant stenosis. There is a normal origin of the brachiocephalic, left common carotid, and left subclavian arteries. Mural thrombus is seen in the aortic arch more prominent posteriorly. RIGHT CAROTID ARTERIES: Normal right common carotid artery (CCA). Normal right common carotid bulb. Normal origin of the right internal carotid (ICA) artery without a hemodynamically significant stenosis. Normal visualized cervical portion of the right internal carotid artery. Normal origin of the right external carotid artery (ECA). LEFT CAROTID ARTERIES: Normal left common carotid artery (CCA). Normal left common carotid bulb. Normal origin of the left internal carotid (ICA) artery without a hemodynamically significant stenosis. Normal visualized cervical portion of the left internal carotid artery. There is mild atherosclerotic plaque formation of the origin of the left external carotid artery with less than 50% cross sectional diameter stenosis. VERTEBRAL ARTERIES: Normal bilateral vertebral arteries. CT/STROKE CTA Head AND Neck W/Con IMPRESSION: Normal CTA Head and neck with contrast. Mural thrombus in the posterior aspect of the aortic arch. N.B. : The above Results were Read Back by Geovany Spring MD to Curt Gilman and understanding confirmed on 08/23/2020 14:13:22 (ET). Electronically Signed: Geovany Spring MD at 14:14 EDT , Service support ,
--- NOTE | 2020-08-23 13:34 | CT_ITS ---
STUDY: CTA CHEST REASON FOR EXAM: Male, 60 years old. Chest pain RADIATION DOSAGE (If Supplied By Facility): CTDIvol = ( 20.46 ) mGy, DLP = ( 2039.03 ) mGycm TECHNIQUE: The examination was performed with the intravenous administration of IV 100mL Isovue-370. Post-processing of the angiographic images was performed, with multiplanar reformation and 3D reconstruction. Individualized dose optimization techniques were used for this CT. COMPARISON: Comparison is made with prior study done 12/12/2018. FINDINGS: Normal enhancement of the main pulmonary artery and right and left pulmonary arteries. Normal enhancement of the bilateral peripheral pulmonary arteries. There is no demonstrated pulmonary embolism. There is atherosclerotic calcification of the aortic arch with tortuosity. There is evidence of a mural thrombus along the aortic arch as well as the descending thoracic aorta. There is evidence of a aneurysmal dilatation of the descending thoracic aorta with a maximum transverse dimension of 3.9 cm. There is evidence of a mural thrombus in the proximal abdominal aorta as well. There is no demonstrated aortic dissection. Sternal cerclage wires and vascular clips are present from a prior sternotomy and coronary artery bypass graft procedure (CABG). There are calcifications of the coronary arteries. Normal mediastinum. Normal hilar regions. Normal visualized trachea and bronchi. The lungs are well expanded. Normal pulmonary parenchyma. Normal pleura. Normal chest wall structures. There are degenerative changes of thoracic spine. Normal visualized upper abdomen. CT/CTA Chest W/WO Contrast IMPRESSION: Aneurysmal dilatation of the descending thoracic aorta with a transverse dimension of 3.9 cm. No evidence of dissection. Mural thrombus is seen at the level of the aortic arch as well as the descending thoracic aorta. Electronically Signed: Geovany Spring MD at 14:18 EDT , Service support ,
--- NOTE | 2020-08-23 13:39 | EDS_ITS ---
HPI History of Present Illness Chief Complaint: Chest Pain Narrative Narrative: 60-year-old male with history of TIA, CHF, PA multiple times, hyperlipidemia, cardiac stents presents with chest pain which started at 1130 this morning he describes it as somebody punching me in the left side of my chest. Patient states this is not stopped. Patient states that after he arrived and was roomed he started having facial droop on the left. He also states that his left leg is weak. I asked him as if this was the same timeframe that his facial droop started and he states it may have started before he got here. Patient complains of decreased sensation on the right side with weakness on the left side where his facial droop is. [facility] Medical History Abdominal aortic aneurysm (AAA) Abnormal PFT Anxiety Atherosclerosis of coronary artery bypass graft of [place] heart with angina pectoris Chronic HFrEF (heart failure with reduced ejection fraction) COPD (chronic obstructive pulmonary disease) CVA (cerebral vascular accident) Depression Depression with anxiety Esophageal stricture Essential (primary) hypertension GERD (gastroesophageal reflux disease) GERD (gastroesophageal reflux disease) History of CVA (cerebrovascular accident) History of non-ST elevation myocardial infarction (NSTEMI) (08/09/20) HLD (hyperlipidemia) Hypersomnia Hypomagnesemia syndrome Ischemic cardiomyopathy Left lower lobe pulmonary nodule Neuropathic pain Nicotine dependence LETTY (obstructive sleep apnea) Osteoporosis Peripheral vascular occlusive disease Rheumatoid arthritis Stroke TIA (transient ischemic attack) Home Medications aspirin 81 mg PO DAILY@0800 11/07/18 [History Last Taken 05/20/20] magnesium oxide 400 mg PO DAILY 11/07/18 [History Last Taken 04/20/20] pantoprazole 40 mg tablet,delayed release 40 mg PO BID 11/15/18 [History Last Taken 05/20/20] potassium chloride 20 mEq tablet,extended release(part/cryst) 20 meq PO DAILY #90 tablet 07/06/19 [Rx Last Taken 05/20/20] albuterol sulfate 0.63 mg/3 mL solution for nebulization 0.63 mg INHALATION Q4H PRN #270 ml 07/12/19 [Rx Last Taken 05/20/20] amitriptyline 25 mg tablet 25 mg PO QHS 08/17/19 [History Last Taken 04/20/20] furosemide 40 mg PO BID 02/13/20 [History Last Taken 04/20/20] atorvastatin 80 mg PO QHS 02/15/20 [History Last Taken 04/20/20] metoprolol succinate 50 mg PO DAILY 02/15/20 [History Last Taken 05/20/20] alendronate 70 mg tablet 70 mg PO QWEEK tablet 03/15/20 [History Last Taken 04/15/20] gabapentin 600 mg tablet 600 mg PO 4X/DAY tablet 03/15/20 [History Last Taken 05/20/20] isosorbide mononitrate 60 mg tablet,extended release 24 hr 60 mg PO BID #180 tablet 05/20/20 [Rx Last Taken Unknown] lisinopril 5 mg tablet 5 mg PO DAILY tablet 06/10/20 [History Last Taken Unknown] ranolazine 1,000 mg tablet,extended release,12 hr 1,000 mg PO BID 30 Days #60 tablet 06/10/20 [Rx Last Taken Unknown] ticagrelor [Brilinta] 90 mg PO BID 30 Days #60 tab 08/10/20 [Rx Last Taken Unknown] Allergy/AdvReac Type Severity Reaction Status Date / Time latex Allergy Unknown unknown Verified 08/23/20 13:17 acetaminophen Allergy Anaphylaxis Verified 08/23/20 13:17 [From Darvocet-N] diphenhydramine Allergy Rash Verified 08/23/20 13:17 [From Benadryl] NSAIDS (Non-Steroidal Allergy Anaphylaxis Verified 08/23/20 13:17 Anti-Inflamma oxycodone [From Percocet] Allergy Anaphylaxis Verified 08/23/20 13:17 peas Allergy Rash Verified 08/23/20 13:17 Penicillins Allergy Anaphylaxis Verified 08/23/20 13:17 propoxyphene Allergy Anaphylaxis Verified 08/23/20 13:17 [From Darvocet-N] hydrocodone [From Vicodin] AdvReac Mild Nausea/Vom/ Verified 08/23/20 13:17 Diarrhea peppercorn AdvReac NEEDS Uncoded 08/23/20 13:17 FOLLOW-UP Family History Sister CVA (cerebral vascular accident) Heart disease Hypertension High cholesterol Diabetes Cancer lung cancer Father Arthritis Cancer myeloma Mother Arthritis Cancer Brain cancer Surgical History H/O coronary artery bypass surgery (01/28/12) History of angioplasty of peripheral vessel (01/2015) History of coronary artery stent placement (12/13/18) History of implantable cardiac defibrillator (ICD) (09/15/17) History of left heart catheterization (05/20/20) History of left inguinal hernia repair S/P femoral-tibial bypass (12/28/18) Social History Smoking Status: Current every day smoker tobacco type: cigarettes Tobacco: How many years used: 40 quit status: considering quitting alcohol intake: never substance use type: does not use caffeine: Yes (cola) Type: carbonated beverages Number of servings: 5 ROS ROS ED Constitutional Constitutional ED: Denies chills, fever(s) or subjective Eyes Eyes: Denies blurry vision or change in vision ENT ENT ED: Denies rhinorrhea or sore throat Cardiovascular Cardiovascular: Reports chest pain; Denies racing heartbeat Respiratory/Chest Respiratory/Chest: Reports dyspnea; Denies cough Gastrointestinal Gastrointestinal: Denies abdominal pain, nausea or vomiting Genitourinary Genitourinary ED: Denies dysuria or hematuria Musculoskeletal Musculoskeletal: Denies arthralgias or myalgias Neurologic Neurologic: Reports paresthesias LUE and LLE and weakness Psychiatric Psychiatric: Reports anxiety and depression EXAM Physical Exam Const Vital Signs: 08/23/20 12:47 08/23/20 13:17 08/23/20 13:22 Temperature 98.0 F Temperature Source Oral Pulse Rate 107 H 103 H Respiratory Rate 28 H 16 Respiratory Effort Short of Breath Respiratory Pattern Normal Blood Pressure 109/76 93/72 Blood Pressure Mean 87 79 Pulse Ox 96 95 96 Oxygen Delivery Method Nasal Cannula Nasal Cannula Nasal Cannula Oxygen Flow Rate (L/min) 2 2 2 08/23/20 13:33 08/23/20 13:43 08/23/20 14:03 Temperature Temperature Source Pulse Rate 99 104 H Respiratory Rate 16 19 H Respiratory Effort Respiratory Pattern Blood Pressure 113/67 98/71 Blood Pressure Mean 82 80 Pulse Ox 93 96 96 Oxygen Delivery Method Nasal Cannula Nasal Cannula Room Air Oxygen Flow Rate (L/min) 2 2 2 08/23/20 14:30 08/23/20 15:00 08/23/20 15:30 Temperature Temperature Source Pulse Rate 100 96 101 H Respiratory Rate 20 H 18 17 Respiratory Effort Respiratory Pattern Blood Pressure 94/71 103/68 105/73 Blood Pressure Mean 78 79 83 Pulse Ox 96 94 97 Oxygen Delivery Method Room Air Room Air Room Air Oxygen Flow Rate (L/min) 08/23/20 16:00 Temperature Temperature Source Pulse Rate 92 Respiratory Rate 13 Respiratory Effort Respiratory Pattern Blood Pressure 102/74 Blood Pressure Mean 83 Pulse Ox 98 Oxygen Delivery Method Room Air Oxygen Flow Rate (L/min) Positive obese General Appearance ED: NAD Nutritional Appearance: obese HEENT Reports moist mucous membranes atraumatic Eyes PERRL and EOMs intact bilaterally General Eye ED: Negative for pale conjunctiva Resp normal respiratory effort and clear to auscultation bilaterally Cardio Rate: regular rate Rhythm: regular rhythm GI normal to inspection, nondistended, normoactive bowel sounds Neuro oriented x3 Neuro Narrative: Left-sided facial droop at the nasolabial fold in the corner of the left side of the mouth. Left-sided arm drift but does not hit the bed Left-sided leg drift that hits the bed. Unable to perform [id number] with left leg. Sensation is decreased on the right side of the body including the leg, arm. NIH Stroke Scale 5. Sensorium / Orientation: alert Psych Mood & Affect: anxious Skin Lesions: no lesions Rashes: no rashes STROKE Vital Signs/Narrative: Vital Signs Temp Pulse Resp BP Pulse Ox 08/23/20 16:00 92 13 102/74 98 08/23/20 15:30 101 H 17 105/73 97 08/23/20 15:00 96 18 103/68 94 08/23/20 14:30 100 20 H 94/71 96 08/23/20 14:03 104 H 19 H 98/71 96 08/23/20 13:43 96 08/23/20 13:33 99 16 113/67 93 08/23/20 13:22 96 08/23/20 13:17 103 H 16 93/72 95 08/23/20 12:47 98.0 F 107 H 28 H 109/76 96 MDM MDM MDM Narrative Medical decision making narrative: Patient presenting with chest pain however he has an NIH of 5 on my examination. Stroke team was called and patient was taken to CT. I did include CTA head and neck as well as CTA chest given his history of aneurysm and his chest pain. CT brain was negative. CTA of the head and neck were normal. CTA of the chest shows known aneurysm which she described as 4 cm which is 3.9 cm on today's read. There does appear to be nonmural thrombus in the aortic arch and the descending aorta. Patient has no leukocytosis. His hemoglobin hematocrit are stable. He has normal platelets. His creatinine is 1.41. Electrolytes are unremarkable. Coagulation studies are normal. Troponin is normal. EKG is sinus tachycardia with right bundle branch block at a rate of 105 bpm on my interpretation. Chest x-ray shows no acute cardiopulmonary process. [facility] neurology did be mid and felt that he had an NIH of 3 at this point. They did recommend TPA however. Patient states that he has had TPA in the past and he does want want this because to he had some blood blisters on his arms that he did not like. I counseled him that if we do not do TPA that it is possible that he could continue to have these deficits indefinitely. He ack nowledges understanding of this and states I usually bounce back given the abnormalities on the CTA chest the hospitalist felt we should send the patient to [facility]. I did talk to [facility] and they accepted admission. Aspirin was withheld because patient has anaphylaxis. He is already on antiplatelet therapy. Patient will be transferred in stabilized condition. Impression: 1. Chest pain 2. Mural thrombus in the aortic arch and descending aorta 3. CVA Lab Data Attestation: I reviewed the patient's lab results. Labs: Laboratory Results - last 24 hr 08/23/20 08/23/20 08/23/20 13:15 13:15 13:43 WBC 9.9 RBC 5.42 Hgb 16.8 H Hct 48.9 MCV 90.2 MCH 31.0 MCHC 34.4 RDW Std Deviation 47.7 H RDW Coeff of Jack 14.5 Plt Count 277 MPV 10.2 Immature Gran % (Auto) 2.200 H Neut % (Auto) 67.0 Lymph % (Auto) 18.8 L Angelina % (Auto) 4.8 Eos % (Auto) 5.5 H Baso % (Auto) 1.7 H Absolute Neuts (auto) 6.6 Absolute Lymphs (auto) 1.87 Nucleated RBC % 0 PT INR APTT Sodium 131 L Potassium 4.1 Chloride 93 L Carbon Dioxide 29.0 Anion Gap 9 BUN 20 H Creatinine 1.41 H Estim Creat Clear Calc 53.39 Est GFR (MDRD) Af Amer 66 Est GFR (MDRD) Non-Af 55 L BUN/Creatinine Ratio 14.2 Glucose 202 H Calcium 9.5 Troponin I High Sens 8.5 POC Glucose 175 H 08/23/20 13:49 WBC RBC Hgb Hct MCV MCH MCHC RDW Std Deviation RDW Coeff of Jack Plt Count MPV Immature Gran % (Auto) Neut % (Auto) Lymph % (Auto) Angelina % (Auto) Eos % (Auto) Baso % (Auto) Absolute Neuts (auto) Absolute Lymphs (auto) Nucleated RBC % PT 14.2 INR 1.2 APTT 31.3 Sodium Potassium Chloride Carbon Dioxide Anion Gap BUN Creatinine Estim Creat Clear Calc Est GFR (MDRD) Af Amer Est GFR (MDRD) Non-Af BUN/Creatinine Ratio Glucose Calcium Troponin I High Sens POC Glucose Radiography Diagnostic Testing: Radiology Impression Brain CT 08/23/20 13:33 IMPRESSION: Chronic involutional changes of the brain. 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 N.B. : The above Results were Read Back by Geovany Spring MD to Curt Gilman and understanding confirmed on 08/23/2020 13:50:24 (ET). Electronically Signed: Geovany Spring MD at 13:51 EDT , Service support , ADDENDUM: 08/23/20 1358 IMPRESSION: Chronic involutional changes of the brain. 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 N.B. : The above Results were Read Back by Geovany Spring MD to Curt Gilman and understanding confirmed on 08/23/2020 13:50:24 (ET). Electronically Signed: Geovany Spring MD at 13:51 EDT , Service support , Chest CTA 08/23/20 13:34 IMPRESSION: Aneurysmal dilatation of the descending thoracic aorta with a transverse dimension of 3.9 cm. No evidence of dissection. Mural thrombus is seen at the level of the aortic arch as well as the descending thoracic aorta. Electronically Signed: Geovany Spring MD at 14:18 EDT , Service support , Head/Neck CTA 08/23/20 13:34 IMPRESSION: Normal CTA Head and neck with contrast. Mural thrombus in the posterior aspect of the aortic arch. N.B. : The above Results were Read Back by Geovany Spring MD to Curt Gilman and understanding confirmed on 08/23/2020 14:13:22 (ET). Electronically Signed: Geovany Spring MD at 14:14 EDT , Service support , ADDENDUM: 08/23/20 1421 IMPRESSION: Normal CTA Head and neck with contrast. Mural thrombus in the posterior aspect of the aortic arch. N.B. : The above Results were Read Back by Geovany Spring MD to Curt Gilman and understanding confirmed on 08/23/2020 14:13:22 (ET). Electronically Signed: Geovany Spring MD at 14:14 EDT , Service support , Chest X-Ray 08/23/20 14:43 IMPRESSION: Minimal linear scarring at the left lung base. Electronically Signed: Geovany Spring MD at 14:57 EDT , Service support , Discharge Plan Triage Chief Complaint: Chest Pain ED Provider: Curt Gilman Dx/Rx/DC Orders Prescriptions: No Action pantoprazole 40 mg tablet,delayed release (DR/EC) 40 mg PO BID RF: 0 gabapentin 600 mg tablet 600 mg PO 4X/DAY RF: 0 albuterol sulfate 0.63 mg/3 mL solution for nebulization 0.63 mg INHALATION Q4H PRN (Reason: shortness of breath or wheezing) Qty: 270 RF: 4 amitriptyline 25 mg tablet 25 mg PO QHS RF: 0 alendronate 70 mg tablet 70 mg PO QWEEK RF: 0 ranolazine 1,000 mg tablet extended release 12 hr 1,000 mg PO BID 30 Days Qty: 60 RF: 11 lisinopril 5 mg tablet 5 mg PO DAILY RF: 0 aspirin 81 MG tablet 81 mg PO DAILY@0800 RF: 0 magnesium oxide 400 MG tablet 400 mg PO DAILY RF: 0 furosemide 40 MG tablet 40 mg PO BID RF: 0 atorvastatin 80 MG tablet 80 mg PO QHS RF: 0 metoprolol succinate 50 MG tablet 50 mg PO DAILY RF: 0 isosorbide mononitrate 60 mg tablet extended release 24 hr 60 mg PO BID Qty: 180 RF: 2 Brilinta 90 mg tablet 90 mg PO BID 30 Days Qty: 60 RF: 0 potassium chloride 20 mEq tablet,ER particles/crystals 20 meq PO DAILY Qty: 90 RF: 3 Primary Care Provider: Oral Manuel
[2020-08-23 13:42] LABS: Absolute Lymphocyte Count 1.87 X10^3/uL (0.83-4.51); Absolute Neutrophil Count 6.6 X10^3/uL (2.0-7.7); Basophil# 0.17 X10^3/uL; Basophil% 1.7 % (0-1); Eosinophil# 0.55 X10^3/uL; Eosinophils% 5.5 % (0-5); Hematocrit 48.9 % (40-54); Hemoglobin 16.8 g/dL (13.0-16.5); Lymphocyte # 1.87 X10^3/ul (0.83-4.51); Lymphocyte % 18.8 % (19-41); Mean Corp Hgb Conc 34.4 g/dL (32-36); Mean Corpuscular Volume 90.2 fL (80-94); Mean Platelet Vol. 10.2 fl (6.2-12.0); Monocyte# 0.48 X10^3/uL; Monocyte% 4.8 % (0-10); NRBC Flagged by Analyzer 0 % (0-5); Neutrophil # 6.64 X10^3/uL (2.7-7.7); Platelet Count 277 K/mm3 (150-450); RBC Distribution Width CV 14.5 % (11.6-14.6); RBC Distribution Width SD 47.7 fl (35.1-43.9); Red Blood Count 5.42 M/mm3 (4.6-6.2); White Blood Count 9.9 K/mm3 (4.4-11.0)
[2020-08-23 13:51] LABS: Bedside Glucose 175 mg/dL (70-110)
[2020-08-23 14:01] LABS: Anion Gap 9 (5-15); BUN 20 mg/dL (7-18); BUN/Creat Ratio 14.2 RATIO (10-20); Calcium,Total 9.5 mg/dL (8.5-10.1); Chloride 93 mmol/L (98-107); Creatinine, Serum 1.41 mg/dL (0.70-1.30); EST Glomerular Filtration Rate 55 mL/min (>60); Est Glom Filt Rate - Afr Amer 66 mL/min (>60); Estimated Creatinine Clearance 53.39 ml/min; Glucose 202 mg/dL (74-106); Potassium 4.1 mmol/L (3.5-5.1); Sodium Level 131 mmol/L (136-145); Troponin-I HS 8.5 pg/mL (3.0-78.5)
[2020-08-23 14:07] LABS: International Normalized Ratio 1.2; Prothrombin Time (Protime)PT. 14.2 SECONDS (11.7-14.9)
[2020-08-23 14:08] LABS: Partial Thromboplast Time 31.3 Seconds (24.1-36.2)
[2020-08-23] MEDS: fentaNYL 100 MCG/2 ML Ampul 25 MCG IV (14:08)
--- NOTE | 2020-08-23 14:11 | ED.RN ---
pt refusing tpa at this time.
--- NOTE | 2020-08-23 14:43 | RAD_ITS ---
STUDY: X-RAY CHEST REASON FOR EXAM: Male, 60 years old. Neuro deficit, acute, stroke suspected TECHNIQUE: Single AP portable view of the chest. COMPARISON: Comparison is made with prior study dated 08/16/2020. FINDINGS: EKG electrodes are seen. Minimal linear scarring at the left lung base. There is no demonstrated pleural abnormality. There is borderline cardiomegaly. A left-sided dual-chamber pacemaker is seen. Normal mediastinum and jovanni. Normal visualized pulmonary arteries. There is atherosclerotic calcification of the aortic arch with tortuosity. Normal visualized thoracic spine. Normal visualized ribs, clavicles, and shoulders. There is no demonstrated abnormality of the visualized soft tissue structures of the upper abdomen. RAD/Chest 1 View IMPRESSION: Minimal linear scarring at the left lung base. Electronically Signed: Geovany Spring MD at 14:57 EDT , Service support ,
[2020-08-23] MEDS: fentaNYL 100 MCG/2 ML Ampul 50 MCG IV (16:32)
== END 2020-08-23 16:59 | disposition short-term general hospital (02) ==
PROVIDERS: Emergency Provider Student in an Organized Health Care Education/Training Program; PCP Family Medicine
DX: I63.9 Cerebral infarction, unspecified (principal); G83.24 Monoplegia of upper limb affecting left nondominant side; R29.810 Facial weakness; R29.703 NIHSS score 3; R07.9 Chest pain, unspecified; I51.3 Intracardiac thrombosis, not elsewhere classified; I11.0 Hypertensive heart disease with heart failure; I50.22 Chronic systolic (congestive) heart failure; I25.10 Atherosclerotic heart disease of native coronary artery without angina pectoris; I48.91 Unspecified atrial fibrillation; M06.9 Rheumatoid arthritis, unspecified; E78.5 Hyperlipidemia, unspecified; G47.33 Obstructive sleep apnea (adult) (pediatric); K21.9 Gastro-esophageal reflux disease without esophagitis; F32.9 Major depressive disorder, single episode, unspecified; F41.9 Anxiety disorder, unspecified; E66.9 Obesity, unspecified; F17.210 Nicotine dependence, cigarettes, uncomplicated; Z79.82 Long term (current) use of aspirin; Z79.02 Long term (current) use of antithrombotics/antiplatelets; Z79.899 Other long term (current) drug therapy; I25.2 Old myocardial infarction; Z86.73 Personal history of transient ischemic attack (TIA), and cerebral infarction without residual deficits; Z95.5 Presence of coronary angioplasty implant and graft; Z95.1 Presence of aortocoronary bypass graft; Z95.810 Presence of automatic (implantable) cardiac defibrillator; Z86.79 Personal history of other diseases of the circulatory system
CPT/HCPCS: 70450; 70496; 70498; 71045; 71275; 80048; 82962; 84484; 85025; 85610; 85730; 93005; 96361; 96374; 96376; 99285; J7040; Q9967; A4216

== ENCOUNTER 2020-10-07 07:45 | Observation (INO) | payer MEDICARE, SELFPAY ==
[2018-12-13 11:07] VITALS: BMI 26.3
[2020-10-07] VITALS (14 sets, daily range): BP systolic 110–150; BP diastolic 78–94; PULSE 80–101; RESP 14–20; TEMP 36.4–36.5; O2SAT 95–100; BMI 28.1; BMI 28.9
--- NOTE | 2020-10-07 07:50 | ED.RN ---
taken straight back with new information beyond rash. dr abdalla notfied
[2020-10-07 08:00] LABS: Bedside Glucose 108 mg/dL (70-110)
--- NOTE | 2020-10-07 08:02 | EKG12_ITS ---
Test Reason : CP Blood Pressure : / mmHG Vent. Rate : 082 BPM Atrial Rate : 082 BPM P-R Int : 170 ms QRS Dur : 142 ms QT Int : 438 ms P-R-T Axes : 031 115 060 degrees QTc Int : 511 ms Normal sinus rhythm Right bundle branch block Anterolateral infarct , age undetermined Abnormal ECG Confirmed by JULIO SMART, TABATHA ([id number]), editorial writer MARILUZ PAGE ([id number]) on 10/10/2020 10:19:36 AM Referred By: ZAKIYA Confirmed By:TABATHA KIM MD
--- NOTE | 2020-10-07 08:02 | RAD_ITS ---
STUDY: X-RAY CHEST REASON FOR EXAM: Male, 60 years old. Chest pain . Facial droop. TECHNIQUE: Single AP portable view of the chest. COMPARISON: Comparison is made with prior study dated 08/23/2020. FINDINGS: EKG electrodes are seen. Hyperinflation. The lungs are clear. There is no demonstrated pleural abnormality. Normal size heart. A left-sided dual-chamber pacemaker is seen. Normal mediastinum and jovanni. Normal visualized pulmonary arteries. There is atherosclerotic tortuosity of the aortic arch and descending thoracic aorta. Normal visualized thoracic spine. Normal visualized ribs, clavicles, and shoulders. There is no demonstrated abnormality of the visualized soft tissue structures of the upper abdomen. RAD/Chest 1 View (Portable) IMPRESSION: No acute abnormality is seen. Electronically Signed: Geovany Spring MD at 8:51 EDT , Service support ,
--- NOTE | 2020-10-07 08:02 | CT_ITS ---
STUDY: CT BRAIN WITHOUT CONTRAST REASON FOR EXAM: Male, 60 years old. Left facial droop and left arm weakness. RADIATION DOSAGE (If Supplied By Facility): CTDIvol = ( 38.43 ) mGy, DLP = ( 712.69 ) mGycm TECHNIQUE: Transaxial CT imaging of the brain was performed without administration of intravenous contrast material. Individualized dose optimization techniques were used for this CT. COMPARISON: Comparison is made with prior study dated 08/23/2020. FINDINGS: Normal soft tissue structures. Normal calvarium. There is mild cerebral atrophy with widening of the extra-axial spaces and ventricular dilatation. Normal white matter tracts of the cerebral hemispheres. Stable tiny lacunar in the insular cortex of the left temporal lobe. Normal brainstem. Normal cerebellum. There is no intracranial hemorrhage. There are no findings of an acute ischemic infarction. Atherosclerotic calcification of the cavernous portions of the internal carotid arteries bilaterally. There is a 1.7 cm polyp or retention cyst along the inferior medial aspect of the right maxillary sinus. CT/Brain/Head without Contrast IMPRESSION: Chronic involutional changes of the brain. Electronically Signed: Geovany Spring MD at 8:50 EDT , Service support ,
--- NOTE | 2020-10-07 08:03 | ED.RN ---
per dr. abdalla, no stroke team.
[2020-10-07 08:11] LABS: Absolute Lymphocyte Count 1.83 X10^3/uL (0.83-4.51); Absolute Neutrophil Count 2.8 X10^3/uL (2.0-7.7); Basophil# 0.07 X10^3/uL; Basophil% 1.3 % (0-1); Eosinophil# 0.35 X10^3/uL; Eosinophils% 6.4 % (0-5); Hematocrit 50.8 % (40-54); Hemoglobin 16.3 g/dL (13.0-16.5); Lymphocyte # 1.83 X10^3/ul (0.83-4.51); Lymphocyte % 33.6 % (19-41); Mean Corp Hgb Conc 32.1 g/dL (32-36); Mean Corpuscular Hgb 30.2 pg (27.0-32.0); Mean Corpuscular Volume 94.2 fL (80-94); Mean Platelet Vol. 10.6 fl (6.2-12.0); Monocyte# 0.37 X10^3/uL; Monocyte% 6.8 % (0-10); NRBC Flagged by Analyzer 0 % (0-5); Neutrophil # 2.79 X10^3/uL (2.7-7.7); Neutrophil % 51.2 % (47-70); Platelet Count 224 K/mm3 (150-450); RBC Distribution Width CV 15.8 % (11.6-14.6); RBC Distribution Width SD 55.1 fl (35.1-43.9); Red Blood Count 5.39 M/mm3 (4.6-6.2); White Blood Count 5.5 K/mm3 (4.4-11.0)
[2020-10-07 08:28] LABS: ALB/GLOB Ratio 1.1 RATIO (0.9-2.4); AST(SGOT) 20 U/L (15-37); Alanine Aminotransfer ALT/SGPT 24 U/L (16-61); Albumin, Serum 4.1 g/dL (3.2-5.0); Alkaline Phosphatase 45 U/L (45-117); Anion Gap 5 (5-15); BUN 17 mg/dL (7-18); BUN/Creat Ratio 12.3 RATIO (10-20); Calcium,Total 9.3 mg/dL (8.5-10.1); Chloride 103 mmol/L (98-107); Creatinine, Serum 1.38 mg/dL (0.70-1.30); EST Glomerular Filtration Rate 56 mL/min (>60); Est Glom Filt Rate - Afr Amer 68 mL/min (>60); Estimated Creatinine Clearance 54.55 ml/min; Globulin 3.9 g/dL (2.2-4.2); Glucose 102 mg/dL (74-106); Potassium 3.7 mmol/L (3.5-5.1); Sodium Level 136 mmol/L (136-145); Troponin-I HS 14 pg/mL (3.0-78.0)
--- NOTE | 2020-10-07 08:34 | EX.ED.DYSGE1 ---
HPI History of Present Illness Chief Complaint: General Illness Informant: patient Onset/Context/Timing Onset: Today Context: Sudden Onset Timing: Continuous Quality: Numbness, weakness Location: Left face, arm, and leg Worsened by: Nothing Relieved by: Nothing Narrative Narrative: Patient presents with left facial weakness and a rash. Patient states the left facial weakness began this morning when he woke up. Patient states this is new. Patient admits to some decreased sensation in his left arm and leg. Patient also admits to some mild weakness in his left arm and leg. Patient's last known well was 11 PM last night. Patient states the rash has been persistent for the past few days. Patient states it is also on his left side. Patient admits to a headache. Patient admits to a cough and some shortness of breath. Patient states she has had multiple heart attacks and strokes in the past. 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 Chronic HFrEF (heart failure with reduced ejection fraction) COPD (chronic obstructive pulmonary disease) CVA (cerebral vascular accident) Depression Depression with anxiety Esophageal stricture Essential (primary) hypertension GERD (gastroesophageal reflux disease) GERD (gastroesophageal reflux disease) History of CVA (cerebrovascular accident) History of non-ST elevation myocardial infarction (NSTEMI) (08/09/20) HLD (hyperlipidemia) Hypersomnia Hypomagnesemia syndrome Ischemic cardiomyopathy Left lower lobe pulmonary nodule Neuropathic pain Nicotine dependence LETTY (obstructive sleep apnea) Osteoporosis PAF (paroxysmal atrial fibrillation) Peripheral vascular occlusive disease Rheumatoid arthritis Stroke TIA (transient ischemic attack) Home Medications magnesium oxide 400 mg PO DAILY 11/07/18 [History Last Taken 04/20/20] pantoprazole 40 mg tablet,delayed release 40 mg PO BID 11/15/18 [History Last Taken 05/20/20] albuterol sulfate 0.63 mg/3 mL solution for nebulization 0.63 mg INHALATION Q4H PRN #270 ml 07/12/19 [Rx Last Taken 05/20/20] amitriptyline 25 mg tablet 25 mg PO QHS 08/17/19 [History Last Taken 04/20/20] atorvastatin 80 mg PO QHS 02/15/20 [History Last Taken 04/20/20] alendronate 70 mg tablet 70 mg PO QWEEK tablet 03/15/20 [History Last Taken 04/15/20] gabapentin 600 mg tablet 600 mg PO 4X/DAY tablet 03/15/20 [History Last Taken 05/20/20] ranolazine 1,000 mg tablet,extended release,12 hr 1,000 mg PO BID 30 Days #60 tablet 06/10/20 [Rx Last Taken Unknown] apixaban 5 mg tablet 5 mg PO BID 09/13/20 [History Last Taken Unknown] clopidogrel 75 mg tablet 75 mg PO DAILY 09/13/20 [History Last Taken Unknown] empagliflozin 10 mg tablet 10 mg PO DAILY 09/13/20 [History Last Taken Unknown] fenofibrate nanocrystallized 145 mg tablet 145 mg PO DAILY 09/13/20 [History Last Taken Unknown] furosemide 40 mg tablet 40 mg PO DAILY tab 09/13/20 [History Last Taken Unknown] metoprolol succinate 50 mg tablet,extended release 24 hr 25 mg PO DAILY tab 09/13/20 [History Last Taken Unknown] nitroglycerin 0.4 mg sublingual tablet 0.4 mg SUBLINGUAL Q5M PRN 09/13/20 [History Last Taken Unknown] oxycodone 10 mg tablet 10 mg PO Q8H PRN 09/13/20 [History Last Taken Unknown] Allergy/AdvReac Type Severity Reaction Status Date / Time latex Allergy Unknown unknown Verified 10/07/20 07:57 acetaminophen Allergy Anaphylaxis Verified 10/07/20 07:57 [From Darvocet-N] diphenhydramine Allergy Rash Verified 10/07/20 07:57 [From Benadryl] NSAIDS (Non-Steroidal Allergy Anaphylaxis Verified 10/07/20 07:57 Anti-Inflamma oxycodone [From Percocet] Allergy Anaphylaxis Verified 10/07/20 07:57 peas Allergy Rash Verified 10/07/20 07:57 Penicillins Allergy Anaphylaxis Verified 10/07/20 07:57 propoxyphene Allergy Anaphylaxis Verified 10/07/20 07:57 [From Darvocet-N] hydrocodone [From Vicodin] AdvReac Mild Nausea/Vom/ Verified 10/07/20 07:57 Diarrhea peppercorn AdvReac NEEDS Uncoded 10/07/20 07:57 FOLLOW-UP Family History Sister CVA (cerebral vascular accident) Heart disease Hypertension High cholesterol Diabetes Cancer lung cancer Father Arthritis Cancer myeloma Mother Arthritis Cancer Brain cancer Surgical History H/O coronary artery bypass surgery (01/28/12) History of angioplasty of peripheral vessel (01/2015) History of coronary artery stent placement (12/13/18) History of implantable cardiac defibrillator (ICD) (09/15/17) History of left heart catheterization (05/20/20) History of left inguinal hernia repair S/P femoral-tibial bypass (12/28/18) Social History Smoking Status: Current every day smoker tobacco type: cigarettes Tobacco: How many years used: 40 quit status: considering quitting alcohol intake: never substance use type: does not use caffeine: Yes (cola) Type: carbonated beverages Number of servings: 5 ROS ROS ED Constitutional Constitutional ED: Denies chills or fever(s) Eyes Eyes: Reports blurry vision; Denies diplopia ENT ENT ED: Denies rhinorrhea or sore throat Cardiovascular Cardiovascular: Reports chest pain; Denies palpitations Respiratory/Chest Respiratory/Chest: Reports cough and dyspnea Gastrointestinal Gastrointestinal: Denies nausea or vomiting Genitourinary Genitourinary ED: Denies dysuria or hematuria Musculoskeletal Musculoskeletal: Reports neck pain; Denies back pain Integumentary Reports rash; Denies abscess Neurologic Neurologic: Reports headache(s); Denies weakness Allergic/Immunologic Allergic/Immunologic ED: Denies mouth swelling or urticaria EXAM Physical Exam Const Vital Signs: 10/07/20 07:49 10/07/20 07:58 10/07/20 09:46 Temperature 97.5 F L Temperature Source Temporal Pulse Rate 94 87 85 Respiratory Rate 16 16 20 H Respiratory Effort Normal Non-Labored Respiratory Pattern Normal Blood Pressure 150/86 H 136/94 H 142/94 H Blood Pressure Mean 107 108 110 Blood Pressure Source Blood Pressure Position Blood Pressure Location Pulse Ox 100 95 95 Oxygen Delivery Method Room Air Room Air Room Air 10/07/20 11:29 10/07/20 12:00 Temperature 97.5 F L 97.7 F L Temperature Source Temporal Oral Pulse Rate 87 80 Respiratory Rate 14 18 Respiratory Effort Respiratory Pattern Blood Pressure 112/90 H 143/81 H Blood Pressure Mean 97 101 Blood Pressure Source Monitor Blood Pressure Position Semi-Fowlers Blood Pressure Location Right Arm Pulse Ox 98 95 Oxygen Delivery Method Room Air Room Air Positive well nourished and well developed General Appearance ED: well developed HEENT Reports moist mucous membranes Eyes PERRL and EOMs intact bilaterally Neck supple and no JVD Resp normal respiratory effort and clear to auscultation bilaterally Cardio regular rate and regular rhythm GI normal to inspection, nondistended, normoactive bowel sounds and non-tender Palpation: soft Neuro oriented x3 Neuro Narrative: There is a left facial weakness of the lower face. The eyebrows do elevate equally. Strength is 5/5 bilaterally in the upper and lower extremities. Sensation was diminished to light touch in the left upper and lower extremities. Sensorium / Orientation: alert Motor Exam: strength 5/5 throughout Psych mental status grossly normal Skin Rashes: rashes noted Generalized maculopapular; Negative for vesicle, pustule or petechiae Bilateral arms and legs symmetrical erythematous MDM MDM MDM Narrative Medical decision making narrative: EKG was obtained. On my interpretation, it showed a normal sinus rhythm with a rate of 82. There is a right bundle branch block pattern noted. [place] interval and QTc intervals were normal. [place] was normal. There are no acute ST or T wave changes. This was unchanged compared to previous EKG. CBC and comprehensive metabolic profile were obtained. Creatinine was slightly elevated at 1.38. Urinalysis does not show any evidence of urinary tract infection. CT scan of the brain was obtained. There is no acute intracranial abnormality. This was interpreted by the radiologist and reviewed by myself. Portable 1 view chest x-ray was obtained. On my interpretation, lung anderson are clear. There is normal cardiac silhouette. Bony thorax is normal. There is no acute process noted. Radiologist also interpreted the x-ray and agrees. Case was discussed with the hospitalist. Patient states his left facial droop is new despite the fact that it was well documented on his prior visit. Patient will be admitted for observation. Patient understood and was agreeable with the plan. All questions were answered. Lab Data Attestation: I reviewed the patient's lab results. Labs: Laboratory Results - last 24 hr 10/07/20 10/07/20 10/07/20 07:52 07:52 07:56 WBC 5.5 RBC 5.39 Hgb 16.3 Hct 50.8 MCV 94.2 H MCH 30.2 MCHC 32.1 RDW Std Deviation 55.1 H RDW Coeff of Jack 15.8 H Plt Count 224 MPV 10.6 Immature Gran % (Auto) 0.700 Neut % (Auto) 51.2 Lymph % (Auto) 33.6 [place] % (Auto) 6.8 Eos % (Auto) 6.4 H Baso % (Auto) 1.3 H Absolute Neuts (auto) 2.8 Absolute Lymphs (auto) 1.83 Nucleated RBC % 0 Sodium 136 Potassium 3.7 Chloride 103 Carbon Dioxide 28.0 Anion Gap 5 BUN 17 Creatinine 1.38 H Estim Creat Clear Calc 54.55 Est GFR (MDRD) Af Amer 68 Est GFR (MDRD) Non-Af 56 L BUN/Creatinine Ratio 12.3 Glucose 102 Calcium 9.3 Total Bilirubin 0.90 AST 20 ALT 24 Alkaline Phosphatase 45 Troponin I High Sens 14 Total Protein 8.0 Albumin 4.1 Globulin 3.9 Albumin/Globulin Ratio 1.1 Urine Color Urine Clarity Urine pH Ur Specific [place] Urine Protein Urine Glucose (UA) Urine Ketones Urine Occult Blood Urine Nitrite Urine Bilirubin Urine Urobilinogen Ur Leukocyte Esterase Urine RBC Urine WBC Ur Squamous Epith Cells Urine Bacteria Urine Mucus POC Glucose 108 10/07/20 09:35 WBC RBC Hgb Hct MCV MCH MCHC RDW Std Deviation RDW Coeff of Jack Plt Count MPV Immature Gran % (Auto) Neut % (Auto) Lymph % (Auto) [place] % (Auto) Eos % (Auto) Baso % (Auto) Absolute Neuts (auto) Absolute Lymphs (auto) Nucleated RBC % Sodium Potassium Chloride Carbon Dioxide Anion Gap BUN Creatinine Estim Creat Clear Calc Est GFR (MDRD) Af Amer Est GFR (MDRD) Non-Af BUN/Creatinine Ratio Glucose Calcium Total Bilirubin AST ALT Alkaline Phosphatase Troponin I High Sens Total Protein Albumin Globulin Albumin/Globulin Ratio Urine Color Yellow Urine Clarity Sl. Cloudy Urine pH 6.0 Ur Specific [place] 1.020 Urine Protein 30 H Urine Glucose (UA) 1000 H Urine Ketones 5 H Urine Occult Blood Negative Urine Nitrite Negative Urine Bilirubin Negative Urine Urobilinogen 1 H Ur Leukocyte Esterase 25 H Urine RBC 0 SEEN Urine WBC 0-5 SEEN Ur Squamous Epith Cells 0-5 SEEN Urine Bacteria 0 SEEN Urine Mucus 0 SEEN POC Glucose Radiography Diagnostic Testing: Radiology Impression Brain CT 10/07/20 08:02 IMPRESSION: Chronic involutional changes of the brain. Electronically Signed: Geovany Spring MD at 8:50 EDT , Service support , Chest X-Ray 10/07/20 08:02 IMPRESSION: No acute abnormality is seen. Electronically Signed: Geovany Spring MD at 8:51 EDT , Service support , EKG Initial EKG: Interpretation: Sinus Rhythm (82), No Acute Injury Pattern and RBBB Prior EKG tracings: available for review Prior: Unchanged (08/23/2020) Discharge Plan Dx/Rx/DC Orders Clinical Impression: Weakness on left side of face Disposition Disposition: Acute Care Hospital [facility] Discharge Date/Time: 10/07/20 11:53
[2020-10-07 09:45] LABS: Bacteria 0 SEEN /hpf (None Seen); Mucous, Urine 0 SEEN /hpf (<or=2+); Red Blood Cells-Urine 0 SEEN /hpf (0-5)
[2020-10-07 09:48] LABS: Color, Urine Yellow (Yellow); Glucose, Dipstick 1000 mg/dl (Normal); Ketone-Dipstick 5 mg/dl (Negative); Leukocyte Esterase-Dipstick 25 /ul (Negative); Nitrite-Dipstick Negative (Negative); Occult Blood-Urine Negative /ul (Negative); Protein-Dipstick 30 mg/dl (Negative); Urine Bilirubin Dipstick Negative (Negative); Urine Clarity Sl. Cloudy (Clear); Urine Urobilinogen 1 mg/dl (Normal)
[2020-10-07 10:02] LABS: Squamous Epithelial Cells - UA 0-5 SEEN /hpf (0-5); White Blood Cells 0-5 SEEN /hpf (0-5)
[2020-10-07] MEDS: Morphine 2 MG/ML Syringe IV (11:29)
--- NOTE | 2020-10-07 12:52 | EKG12_ITS ---
Test Reason : CP Blood Pressure : / mmHG Vent. Rate : 079 BPM Atrial Rate : 079 BPM P-R Int : 170 ms QRS Dur : 142 ms QT Int : 428 ms P-R-T Axes : 045 110 076 degrees QTc Int : 490 ms Normal sinus rhythm Right bundle branch block Anterolateral infarct , age undetermined Abnormal ECG When compared with ECG of 07-OCT-2020 08:17, MANUAL COMPARISON REQUIRED, DATA IS UNCONFIRMED Confirmed by JULIO SMART, TABATHA ([id number]), editor publications MARILUZ PAGE ([id number]) on 10/08/2020 7:59:36 AM Referred By: CHASE Confirmed By:TABATHA KIM MD
[2020-10-07] MEDS: predniSONE 20 MG Tablet 40 MG PO (13:03)
[2020-10-07] MEDS: oxyCODONE 5 MG Tablet 10 MG PO ×2 (13:03→21:30)
[2020-10-07 13:10] LABS: Bedside Glucose 95 mg/dL (70-110)
[2020-10-07] MEDS: Senna/Docusate Sodium 1 Tablet 2 TABLET PO (13:18)
[2020-10-07] MEDS: Nitroglycerin (INPATIENT USE) 0.4 MG TAB.SUBL SL ×2 (13:18→13:23)
[2020-10-07 13:43] LABS: Troponin-I HS 13 pg/mL (3.0-78.0)
[2020-10-07] MEDS: Alendronate Sodium 70 MG Tablet PO (15:08)
[2020-10-07] MEDS: Gabapentin 600 MG Tablet PO ×3 (15:10→20:47)
--- NOTE | 2020-10-07 15:26 | CT_ITS ---
STUDY: CT CHEST WITH CONTRAST REASON FOR EXAM: Male, 60 years old. CHEST PAIN, RASH, HX:STERNECTOMY, OPEN HEART RADIATION DOSAGE (If Supplied By Facility): CTDIvol = ( 18.88 ) mGy, DLP = ( 642.54 ) mGycm TECHNIQUE: Transaxial imaging was performed following intravenous administration of IV 100mL [id number]-300. Individualized dose optimization techniques were used for this CT. COMPARISON: CT of the chest dated January 19, 2020 FINDINGS: Stable calcified granuloma in the lateral and middle one third region of the left lower lobe. Mild paraseptal cystic changes are present in the bilateral lung apices. No visualized consolidation or pulmonary edema or pleural effusion. Several small cysts are present in the left lower lobe. There is no demonstrated pleural abnormality. Sternal cerclage wires and vascular clips are present from a prior sternotomy and coronary artery bypass graft procedure (CABG). 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 No visualized inflammatory stranding or fluid collections or evidence of mediastinitis. Left coronary artery stent noted. Normal heart size. No pericardial effusion is present. Left chest cardiac device with right heart leads noted. Normal mediastinum. Normal hilar regions. Normal enhanced pulmonary arteries. There is atherosclerotic calcification of the aortic arch with tortuosity and elongation of the aortic arch and descending thoracic aorta. 5.03 x 4.24 cm aneurysm of the mid region of the descending thoracic aorta (see image #50/124 series 2). There are multi-level degenerative changes of the thoracic spine. There is no demonstrated abnormality of the visualized upper abdomen. CT/Chest WITH Contrast IMPRESSION: * 5.03 x 4.24 cm aneurysm of the mid region of the descending thoracic aorta (see image #50/124 series 2). 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 No visualized inflammatory stranding or fluid collections or evidence of mediastinitis. * Mild paraseptal cystic changes are present in the bilateral lung apices. No visualized consolidation or pulmonary edema or pleural effusion. Several small cysts are present in the left lower lobe. Electronically Signed: Jeff Wallace MD at 16:47 EDT , Service support ,
[2020-10-07 15:29] LABS: Troponin-I HS 13 pg/mL (3.0-78.0)
[2020-10-07 17:00] LABS: Bedside Glucose 197 mg/dL (70-110)
--- NOTE | 2020-10-07 17:16 | PCM.HP.STD ---
HPI - General General Date of Admission: 10/07/20 HPI Narrative SALAZAR HOLT, is a 60 M who presented to the emergency department at [facility] on 10/07/2020 with multiple complaints. He reports to me initially came for his rash and also states he woke up this morning with left-sided facial droop and left upper extremity weakness. After presenting to the floor he then complained of chest pain as well. He has multiple medical comorbidities and had a recent extensive evaluation at [facility] when he presented with similar symptoms to this. He also was noted to have a 4.2 cm descending thoracic aortic aneurysm. His vital signs in the emergency department were stable and his blood pressure was overall well controlled. He was on room air with oxygen saturations at 95 to 100%. His CBC was unremarkable. His troponin was negative. His UA was overall unremarkable. His EKG showed normal sinus rhythm with a right bundle branch block but no acute ST-T wave changes indicative of ischemia. A CT of his head was done in the emergency department and showed stable chronic involutional changes but no acute processes. He does have an ICD at baseline for his chronic HFrEF secondary to ischemic cardiomyopathy. It is documented in previous reports from [facility] that he did have left-sided weakness with left facial droop at the time of discharge but the patient indicates that the symptoms completely resolved and reoccurred this morning and were present upon waking. He was last known normal at 11 PM last evening. He is on full anticoagulation with apixaban and he is on Plavix as well. He had known aortic arch thrombus at his last CT prior to transfer to [facility] but has been on full anticoagulation since that time. 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 Chronic HFrEF (heart failure with reduced ejection fraction) COPD (chronic obstructive pulmonary disease) CVA (cerebral vascular accident) Depression Depression with anxiety Esophageal stricture Essential (primary) hypertension GERD (gastroesophageal reflux disease) GERD (gastroesophageal reflux disease) History of CVA (cerebrovascular accident) History of non-ST elevation myocardial infarction (NSTEMI) (08/09/20) HLD (hyperlipidemia) Hypersomnia Hypomagnesemia syndrome Ischemic cardiomyopathy Left lower lobe pulmonary nodule Neuropathic pain Nicotine dependence LETTY (obstructive sleep apnea) Osteoporosis PAF (paroxysmal atrial fibrillation) Peripheral vascular occlusive disease Rheumatoid arthritis Stroke TIA (transient ischemic attack) Home Medications magnesium oxide 400 mg PO DAILY 11/07/18 [History Last Taken 04/20/20] pantoprazole 40 mg tablet,delayed release 40 mg PO BID 11/15/18 [History Last Taken 05/20/20] albuterol sulfate 0.63 mg/3 mL solution for nebulization 0.63 mg INHALATION Q4H PRN #270 ml 07/12/19 [Rx Last Taken 05/20/20] amitriptyline 25 mg tablet 25 mg PO QHS 08/17/19 [History Last Taken 04/20/20] atorvastatin 80 mg PO QHS 02/15/20 [History Last Taken 04/20/20] alendronate 70 mg tablet 70 mg PO QWEEK tablet 03/15/20 [History Last Taken 04/15/20] gabapentin 600 mg tablet 600 mg PO 4X/DAY tablet 03/15/20 [History Last Taken 05/20/20] ranolazine 1,000 mg tablet,extended release,12 hr 1,000 mg PO BID 30 Days #60 tablet 06/10/20 [Rx Last Taken Unknown] apixaban 5 mg tablet 5 mg PO BID 09/13/20 [History Last Taken Unknown] clopidogrel 75 mg tablet 75 mg PO DAILY 09/13/20 [History Last Taken Unknown] empagliflozin 10 mg tablet 10 mg PO DAILY 09/13/20 [History Last Taken Unknown] fenofibrate nanocrystallized 145 mg tablet 145 mg PO DAILY 09/13/20 [History Last Taken Unknown] furosemide 40 mg tablet 40 mg PO DAILY tab 09/13/20 [History Last Taken Unknown] metoprolol succinate 50 mg tablet,extended release 24 hr 25 mg PO DAILY tab 09/13/20 [History Last Taken Unknown] nitroglycerin 0.4 mg sublingual tablet 0.4 mg SUBLINGUAL Q5M PRN 09/13/20 [History Last Taken Unknown] Allergy/AdvReac Type Severity Reaction Status Date / Time latex Allergy Unknown unknown Verified 10/07/20 07:57 acetaminophen Allergy Anaphylaxis Verified 10/07/20 07:57 [From Darvocet-N] diphenhydramine Allergy Rash Verified 10/07/20 07:57 [From Benadryl] NSAIDS (Non-Steroidal Allergy Anaphylaxis Verified 10/07/20 07:57 Anti-Inflamma oxycodone [From Percocet] Allergy Anaphylaxis Verified 10/07/20 07:57 peas Allergy Rash Verified 10/07/20 07:57 Penicillins Allergy Anaphylaxis Verified 10/07/20 07:57 propoxyphene Allergy Anaphylaxis Verified 10/07/20 07:57 [From Darvocet-N] hydrocodone [From Vicodin] AdvReac Mild Nausea/Vom/ Verified 10/07/20 07:57 Diarrhea peppercorn AdvReac NEEDS Uncoded 10/07/20 07:57 FOLLOW-UP Family History Sister CVA (cerebral vascular accident) Heart disease Hypertension High cholesterol Diabetes Cancer lung cancer Father Arthritis Cancer myeloma Mother Arthritis Cancer Brain cancer Surgical History H/O coronary artery bypass surgery (01/28/12) History of angioplasty of peripheral vessel (01/2015) History of coronary artery stent placement (12/13/18) History of implantable cardiac defibrillator (ICD) (09/15/17) History of left heart catheterization (05/20/20) History of left inguinal hernia repair S/P femoral-tibial bypass (12/28/18) Social History Smoking Status: Current every day smoker tobacco type: cigarettes Tobacco: How many years used: 40 quit status: considering quitting alcohol intake: never substance use type: does not use caffeine: Yes (cola) Type: carbonated beverages Number of servings: 5 ROS Constitutional Constitutional: Denies anorexia, change in weight, chills, fatigue, fever(s), malaise, night sweats, weakness or other Eyes Eyes: Denies blurry vision, change in eye color, change in vision, discharge from eye(s), double vision, erythema, eye pain, loss of vision or other ENT HEENT: Denies abnormal hearing, dysphagia, ear pain, epistaxis, headache(s), hearing loss, nasal congestion, nasal discharge, post nasal drip, sinus pressure, sore throat or other Cardiovascular Cardiovascular: Reports chest pain, dyspnea on exertion and edema; Denies claudication, lightheadedness, orthopnea, palpitations, paroxysmal nocturnal dyspnea, rapid heart rate, syncope or other Respiratory/Chest Respiratory/Chest: Denies cough, dyspnea, excessive phlegm production, hemoptysis, productive cough, shortness of breath at rest, shortness of breath with exertion, wheezing or other Gastrointestinal Gastrointestinal: Denies abdominal pain, coffee ground emesis, constipation, diarrhea, dyspepsia, hematemesis, hematochezia, loose stools, melena, nausea, vomiting or other Genitourinary Genitourinary: Denies burning urination, difficulty urinating, dysuria, hematuria, nocturia, urinary frequency, urinary hesitancy, urinary incontinence, urinary urgency or other Musculoskeletal Musculoskeletal: Denies arthralgias, back pain, joint pain, joint stiffness, joint swelling, myalgias, neck pain or other Neurologic Neurologic: Reports focal weakness, paresthesias and tingling; Denies abnormal gait, abnormal speech, confusion, disequilibrium, dizziness, headache(s), numbness, seizure-like activity, seizures, syncope, tremor(s) or other Psychiatric Psychiatric: Denies anxiety, depression, homicidal ideation, suicidal ideation or other Endocrine Endocrinology: Denies change in body appearance, cold intolerance, excessive sweating, heat intolerance, polydipsia, polyuria or other Hematologic/Lymphatic Hematologic/Lymphatic: Reports easy bruising; Denies anemia, easy bleeding, lymphadenopathy or other Allergic/Immunologic Allergic/Immunologic: Denies rhinitis, hives, eczemia, asthma or other Vital Signs Vital Signs Vital Signs: 10/07/20 07:49 10/07/20 07:58 10/07/20 09:46 Temperature 97.5 F L Temperature Source Temporal Pulse Rate 94 87 85 Respiratory Rate 16 16 20 H Respiratory Effort Normal Non-Labored Respiratory Depth Respiratory Pattern Normal Blood Pressure 150/86 H 136/94 H 142/94 H Blood Pressure [BP] Blood Pressure Mean 107 108 110 Blood Pressure Mean [BP] Blood Pressure Source Blood Pressure Source [BP] Blood Pressure Position Blood Pressure Position [BP] Blood Pressure Location Blood Pressure Location [BP] Pulse Ox 100 95 95 Oxygen Delivery Method Room Air Room Air Room Air 10/07/20 11:29 10/07/20 12:00 10/07/20 12:14 Temperature 97.5 F L 97.7 F L Temperature Source Temporal Oral Pulse Rate 87 80 Respiratory Rate 14 18 Respiratory Effort Normal Non-Labored Respiratory Depth Normal Respiratory Pattern Normal Blood Pressure 112/90 H 143/81 H Blood Pressure [BP] Blood Pressure Mean 97 101 Blood Pressure Mean [BP] Blood Pressure Source Monitor Blood Pressure Source [BP] Blood Pressure Position Semi-Fowlers Blood Pressure Position [BP] Blood Pressure Location Right Arm Blood Pressure Location [BP] Pulse Ox 98 95 Oxygen Delivery Method Room Air Room Air Room Air 10/07/20 12:49 10/07/20 13:18 10/07/20 13:23 Temperature Temperature Source Pulse Rate 83 87 Respiratory Rate Respiratory Effort Respiratory Depth Respiratory Pattern Blood Pressure 137/87 H 113/82 H Blood Pressure [BP] Blood Pressure Mean Blood Pressure Mean [BP] Blood Pressure Source Blood Pressure Source [BP] Blood Pressure Position Blood Pressure Position [BP] Blood Pressure Location Blood Pressure Location [BP] Pulse Ox 96 Oxygen Delivery Method Room Air 10/07/20 13:28 10/07/20 13:44 10/07/20 14:53 Temperature Temperature Source Pulse Rate 89 93 Respiratory Rate Respiratory Effort Respiratory Depth Respiratory Pattern Blood Pressure Blood Pressure [BP] 110/84 H Blood Pressure Mean Blood Pressure Mean [BP] 92 Blood Pressure Source Blood Pressure Source [BP] Monitor Blood Pressure Position Blood Pressure Position [BP] Semi-Fowlers Blood Pressure Location Blood Pressure Location [BP] Right Arm Pulse Ox Oxygen Delivery Method 10/07/20 16:00 Temperature 97.7 F L Temperature Source Oral Pulse Rate 80 Respiratory Rate 18 Respiratory Effort Respiratory Depth Respiratory Pattern Blood Pressure 121/78 H Blood Pressure [BP] Blood Pressure Mean 92 Blood Pressure Mean [BP] Blood Pressure Source Monitor Blood Pressure Source [BP] Blood Pressure Position Semi-Fowlers Blood Pressure Position [BP] Blood Pressure Location Right Arm Blood Pressure Location [BP] Pulse Ox 97 Oxygen Delivery Method Room Air Weight Weight: 83.824 kg Body Mass Index (BMI) 28.9 Physical Exam Const alert, oriented x3 and no apparent distress Constitutional Narrative: A middle-aged white male who appears much older than stated age sitting up in bed, primary concern is his new rash, he appears comfortable at this time and is nontoxic General Appearance: cooperative HEENT normocephalic, head/scalp atraumatic, hearing grossly normal bilaterally, moist oral mucous membranes and oropharynx normal HEENT Narrative: Mallampati 2, no thrush Eyes PERRL, EOMs intact bilaterally and conjunctivae normal Neck no lymphadenopathy, supple, no JVD and no carotid bruits Resp normal respiratory effort, no retractions, no use of accessory muscles and clear to auscultation bilaterally Resp Narrative: Diminished but clear Auscultation: Negative for crackles, rales, rhonchi or wheezes Cardio regular rate, regular rhythm, S1 normal heart sound, S2 normal heart sound, no murmurs, no rub, no gallops, no clicks and no JVD GI normal to inspection, nondistended, normoactive bowel sounds, soft to palpation, non-tender and non-distended; Negative for hepatosplenomegaly Extremity Extremity Narrative: Trace bilateral lower extremity edema, no clubbing or cyanosis noted, 1+ pedal pulses, cap refill 2+ Skin no wounds, skin turgor normal, no jaundice, no petechiae and no mottling Skin Narrative: Pinpoint erythematous rash located predominantly on his distal bilateral lower extremities and distal bilateral upper extremities minimal rash noted on his trunk and none on his thighs or face patient is itching Neuro oriented x3 Neuro Narrative: Cranial nerve deficit with 5th and 7th cranial nerve on the left hemiface most notably at the mouth, pronator drift on the left, mild weakness noted left lower extremity Sensorium / Orientation: awake, alert, oriented to person, oriented to place and oriented to time Speech: speech normal Psych Psych Narrative: Appears anxious Results Lab / Micro Data Result Diagrams: 10/07/20 07:52 10/07/20 07:52 Labs: Laboratory Results - last 24 hr 10/07/20 07:52: WBC 5.5, RBC 5.39, Hgb 16.3, Hct 50.8, MCV 94.2 H, MCH 30.2, MCHC 32.1, RDW Std Deviation 55.1 H, RDW Coeff of Jack 15.8 H, Plt Count 224, MPV 10.6, Immature Gran % (Auto) 0.700, Neut % (Auto) 51.2, Lymph % (Auto) 33.6, [place] % (Auto) 6.8, Eos % (Auto) 6.4 H, Baso % (Auto) 1.3 H, Absolute Neuts (auto) 2.8, Absolute Lymphs (auto) 1.83, Nucleated RBC % 0 10/07/20 07:52: Sodium 136, Potassium 3.7, Chloride 103, Carbon Dioxide 28.0, Anion Gap 5, BUN 17, Creatinine 1.38 H, Estim Creat Clear Calc 54.55, Est GFR (MDRD) Af Amer 68, Est GFR (MDRD) Non-Af 56 L, BUN/Creatinine Ratio 12.3, Glucose 102, Calcium 9.3, Total Bilirubin 0.90, AST 20, ALT 24, Alkaline Phosphatase 45, Troponin I High Sens 14, Total Protein 8.0, Albumin 4.1, Globulin 3.9, Albumin/Globulin Ratio 1.1 10/07/20 07:56: POC Glucose 108 10/07/20 09:35: Urine Color Yellow, Urine Clarity Sl. Cloudy, Urine pH 6.0, Ur Specific [place] 1.020, Urine Protein 30 H, Urine Glucose (UA) 1000 H, Urine Ketones 5 H, Urine Occult Blood Negative, Urine Nitrite Negative, Urine Bilirubin Negative, Urine Urobilinogen 1 H, Ur Leukocyte Esterase 25 H, Urine RBC 0 SEEN, Urine WBC 0-5 SEEN, Ur Squamous Epith Cells 0-5 SEEN, Urine Bacteria 0 SEEN, Urine Mucus 0 SEEN 10/07/20 13:03: POC Glucose 95 10/07/20 13:17: Troponin I High Sens 13 10/07/20 14:53: Troponin I High Sens 13 10/07/20 16:56: POC Glucose 197 H Radiology Impression Brain CT 10/07/20 08:02 IMPRESSION: Chronic involutional changes of the brain. Electronically Signed: Geovany Spring MD at 8:50 EDT , Service support , Chest X-Ray 10/07/20 08:02 IMPRESSION: No acute abnormality is seen. Electronically Signed: Geovany Spring MD at 8:51 EDT , Service support , Chest CT 10/07/20 15:26 IMPRESSION: * 5.03 x 4.24 cm aneurysm of the mid region of the descending thoracic aorta (see image #[id number] series 2). 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 No visualized inflammatory stranding or fluid collections or evidence of mediastinitis. * Mild paraseptal cystic changes are present in the bilateral lung apices. No visualized consolidation or pulmonary edema or pleural effusion. Several small cysts are present in the left lower lobe. Electronically Signed: Jeff Wallace MD at 16:47 EDT , Service support , Assessment & Plan Assessment/Plan (1) Weakness on left side of face: (2) Descending aortic aneurysm: (3) Chronic HFrEF (heart failure with reduced ejection fraction): (4) Chest pain: PLAN: Assessment: Left sided weakness/paresthesias/facial droop Chest pain Rash Descending thoracic aortic aneurysm Ischemic cardiomyopathy HFrEF History of aortic arch thrombus PAF Stroke CAD Hypertension Hyperlipidemia COPD Diabetes Diabetic neuropathy GERD Plan: -Stroke work-up in progress -Unable to perform MRI secondary to ICD and sternotomy wires therefore will repeat CT in a.m. -CTA of chest for pain rule out dissection -Cycle cardiac enzymes -Patient has had recent cardiac catheterization in July 2020 -No repeat cardiac testing needed at this time -EKG shows no ischemic changes and is stable when compared to previous -Continue home medications including Plavix and Xarelto -No aspirin given full anticoagulation and single antiplatelet therapy with risk of bleeding -Hold home oral medications for diabetes -Accu-Cheks AC -SSI -Pain medication for chest pain as needed -CODE STATUS is DNR CCA with intubation-no chest compressions but okay for medications and shocks--> this was verified in the emergency department upon admission Charges/Coding Visit Charges Inpatient E&M: 94344 Init Hosp L3
[2020-10-07 19:44] LABS: Troponin-I HS 11 pg/mL (3.0-78.0)
[2020-10-07] MEDS: APIXABAN 5 MG TABLET PO (20:46)
[2020-10-07] MEDS: Amitriptyline 25 MG Tablet PO (20:46)
[2020-10-07] MEDS: Pantoprazole Sodium 40 MG Tablet PO (20:47)
[2020-10-07] MEDS: Atorvastatin Calcium 80 MG Tablet PO (20:47)
[2020-10-07] MEDS: Ranolazine 500 MG Tablet 1000 MG PO (20:48)
[2020-10-07] MEDS: 0.9% Saline Lock 10 ML Syringe IV (20:49)
[2020-10-07 20:55] LABS: Bedside Glucose 213 mg/dL (70-110)
[2020-10-07] MEDS: Insulin Lispro 100 UNIT/ML INSULN.PEN SC (21:30)
[2020-10-08] VITALS (8 sets, daily range): BP systolic 117–140; BP diastolic 73–88; PULSE 74–95; RESP 14–18; TEMP 35.8–36.2; O2SAT 96–98; BMI 28.9
--- NOTE | 2020-10-08 05:55 | CT_ITS ---
STUDY: CT HEAD STROKE PROTOCOL W/O CONTRAST INJECTION REASON FOR EXAM: Male, 60 years old patient with acute neurological deficit. Acute stroke suspected. RADIATION DOSAGE (If Supplied By Facility): CTDIvol = ( 45 ) mGy, DLP = ( 796 ) mGycm TECHNIQUE: Transaxial CT imaging of the brain was performed without administration of intravenous contrast material. Multiplanar reformations are submitted for interpretation. Individualized dose optimization techniques were used for this CT. COMPARISON: CT of the head dated 10/07/2020. FINDINGS: Normal soft tissue structures. Normal calvarium. Normal size ventricles and extra-axial spaces for the patient''s age. Normal white matter tracts of the cerebral hemispheres. There is a lucency in the left basal ganglia that may be the result of old infarct. Basal ganglia and thalami otherwise are within normal limits. Normal brainstem. There is mild cerebellar atrophy. There is no intracranial hemorrhage. There is a hyperdense right MCA sign suggestive of acute infarct. There is atherosclerotic calcification of the intracranial arteries. Normal visualized paranasal sinuses. ASPECT score: 10 CT/STROKE Brain/Head without Cont IMPRESSION: 1. Hyperdense right-sided MCA sign suggestive of acute right MCA infarct. 2. No CT evidence of acute intracranial hemorrhage. N.B. : The above Results were Read Back by Toma Boston MD to Dilma Gonzalez RN, and understanding confirmed on 10/08/2020 06:52:16 (ET). Electronically Signed: Toma Boston MD at 6:57 EDT , Service support ,
[2020-10-08 05:56] LABS: Absolute Lymphocyte Count 1.93 X10^3/uL (0.83-4.51); Absolute Neutrophil Count 4.4 X10^3/uL (2.0-7.7); Basophil# 0.08 X10^3/uL; Basophil% 1.2 % (0-1); Eosinophils% 2.9 % (0-5); Hematocrit 45.8 % (40-54); Hemoglobin 14.7 g/dL (13.0-16.5); Lymphocyte # 1.93 X10^3/ul (0.83-4.51); Mean Corp Hgb Conc 32.1 g/dL (32-36); Mean Corpuscular Hgb 30.3 pg (27.0-32.0); Mean Corpuscular Volume 94.4 fL (80-94); Mean Platelet Vol. 10.9 fl (6.2-12.0); Monocyte# 0.27 X10^3/uL; Monocyte% 3.9 % (0-10); NRBC Flagged by Analyzer 0 % (0-5); Neutrophil # 4.39 X10^3/uL (2.7-7.7); Neutrophil % 63.6 % (47-70); Platelet Count 217 K/mm3 (150-450); RBC Distribution Width CV 15.6 % (11.6-14.6); RBC Distribution Width SD 54.9 fl (35.1-43.9); Red Blood Count 4.85 M/mm3 (4.6-6.2); White Blood Count 6.9 K/mm3 (4.4-11.0)
[2020-10-08] MEDS: Insulin Lispro 100 UNIT/ML INSULN.PEN SC (06:21)
[2020-10-08 06:22] LABS: AST(SGOT) 14 U/L (15-37); Alanine Aminotransfer ALT/SGPT 21 U/L (16-61); Albumin, Serum 3.4 g/dL (3.2-5.0); Alkaline Phosphatase 42 U/L (45-117); Anion Gap 6 (5-15); BUN 22 mg/dL (7-18); BUN/Creat Ratio 16.7 RATIO (10-20); Chloride 102 mmol/L (98-107); Creatinine, Serum 1.32 mg/dL (0.70-1.30); EST Glomerular Filtration Rate 59 mL/min (>60); Est Glom Filt Rate - Afr Amer 72 mL/min (>60); Estimated Creatinine Clearance 57.03 ml/min; Globulin 3.4 g/dL (2.2-4.2); Glucose 203 mg/dL (74-106); Magnesium 2.2 mg/dL (1.6-2.6); Phosphorus 3.1 mg/dL (2.5-4.9); Potassium 3.8 mmol/L (3.5-5.1); Protein, Total 6.8 g/dL (6.4-8.2); Sodium Level 133 mmol/L (136-145)
[2020-10-08 06:26] LABS: Bedside Glucose 161 mg/dL (70-110)
[2020-10-08] MEDS: Pantoprazole Sodium 40 MG Tablet PO (09:13)
[2020-10-08] MEDS: Gabapentin 600 MG Tablet PO (09:13)
[2020-10-08] MEDS: Clopidogrel Bisulfate 75 MG Tablet PO (09:13)
[2020-10-08] MEDS: Metoprolol(XL)Succ 25 MG Tablet PO (09:13)
[2020-10-08] MEDS: Magnesium Chloride 64 MG Delay Rel.Tablet 128 MG PO (09:13)
[2020-10-08] MEDS: APIXABAN 5 MG TABLET PO (09:13)
[2020-10-08] MEDS: Ranolazine 500 MG Tablet 1000 MG PO (09:13)
[2020-10-08] MEDS: Furosemide 40 MG Tablet PO (09:14)
[2020-10-08] MEDS: Fenofibrate 145 MG Tablet PO (09:14)
[2020-10-08] MEDS: oxyCODONE 5 MG Tablet 10 MG PO (09:20)
[2020-10-08] MEDS: Senna/Docusate Sodium 1 Tablet 2 TABLET PO (09:21)
--- NOTE | 2020-10-08 10:15 | DS.PCM_ITS ---
Providers Date of Admission: 10/07/20 Primary Care Physician: Dr. Oral Manuel MD Reason For Visit: LEFT FACIAL WEAKNESS Diagnosis Discharge Diagnosis (1) Weakness on left side of face: Status: Acute Code(s): R29.810 - Facial weakness (2) Descending aortic aneurysm: Status: Acute Code(s): I71.9 - Aortic aneurysm of unspecified site, without rupture (3) Chronic HFrEF (heart failure with reduced ejection fraction): Status: Chronic Code(s): I50.22 - Chronic systolic (congestive) heart failure (4) Chest pain: Status: Acute Code(s): R07.9 - Chest pain, unspecified Medications at Discharge Home Medications magnesium oxide 400 mg PO DAILY 11/07/18 pantoprazole 40 mg tablet,delayed release 40 mg PO BID 11/15/18 albuterol sulfate 0.63 mg/3 mL solution for nebulization 0.63 mg INHALATION Q4H PRN #270 ml 07/12/19 amitriptyline 25 mg tablet 25 mg PO QHS 08/17/19 atorvastatin 80 mg PO QHS 02/15/20 alendronate 70 mg tablet 70 mg PO QWEEK tablet 03/15/20 gabapentin 600 mg tablet 600 mg PO 4X/DAY tablet 03/15/20 ranolazine 1,000 mg tablet,extended release,12 hr 1,000 mg PO BID 30 Days #60 tablet 06/10/20 apixaban 5 mg tablet 5 mg PO BID 09/13/20 clopidogrel 75 mg tablet 75 mg PO DAILY 09/13/20 empagliflozin 10 mg tablet 10 mg PO DAILY 09/13/20 fenofibrate nanocrystallized 145 mg tablet 145 mg PO DAILY 09/13/20 furosemide 40 mg tablet 40 mg PO DAILY tab 09/13/20 metoprolol succinate 50 mg tablet,extended release 24 hr 25 mg PO DAILY tab 09/13/20 nitroglycerin 0.4 mg sublingual tablet 0.4 mg SUBLINGUAL Q5M PRN 09/13/20 prednisone 40 mg PO LUNCH 5 Days #10 tab 10/08/20 Hospital Course Operations None Procedures - (CT brain/CT of chest) Summary of Care Provided Minutes Spent on Discharge: 41 Hospital Course: SALAZAR HOLT, is a 60 M who presented to the emergency department at [facility] on 10/07/2020 with multiple complaints. He reported to me initially came for his rash and also stated he woke up this morning with left-sided facial droop and left upper extremity weakness. He was last known normal at 11 pm. After presenting to the floor he then complained of chest pain as well. He has multiple medical comorbidities and had a recent extensive evaluation at [facility] when he presented with similar symptoms to this. He also was noted to have a 4.2 cm descending thoracic aortic aneurysm. His vital signs in the emergency department were stable and his blood pressure was overall well controlled. He was on room air with oxygen saturations at 95 to 100%. His CBC was unremarkable. His troponin was negative. His UA was overall unremarkable. His EKG showed normal sinus rhythm with a right bundle branch block but no acute ST-T wave changes indicative of ischemia. A CT of his head was done in the emergency department and showed stable chronic involutional changes but no acute processes. He does have an ICD at baseline for his chronic HFrEF secondary to ischemic cardiomyopathy with markedly depressed ejection fraction of 35%. It is documented in previous reports from [facility] that he did have left-sided weakness with left facial droop at the time of discharge but the patient indicates that the symptoms completely resolved and reoccurred this morning and were present upon waking. Upon his last admission here he was noted to have thrombus in his aortic arch and was therefore transferred for [facility] for further therapy. He was started on apixaban and continued on his Plavix at discharge. He notes significant compliance without missed doses for both of these medications as well as his other medications. He was unable to have an MRI secondary to his pacemaker therefore a CT of his brain was repeated 24 hours after presentation which showed an hyperdense right-sided MCA signal suggestive of an acute right MCA infarct which is consistent with his presentation. He was evaluated by neurology and given the fact he had normal vascular studies of his carotid and vertebral circulation recently he noted there was no further work-up required and no further medical management that could be offered at this point given the fact he was already on full anticoagulation and Plavix. With regards to his rash he was placed on prednisone for burst dosing and his rash seemed to improved within 24 hours although it was not resolved. 5 days burst therapy was prescribed at discharge. And I encouraged the patient to follow-up with his PCP within a week. His chest pain had significantly improved within 24 hours of admission. His cardiac enzymes were cycled and were negative a CT of his chest was obtained given his history of thoracic aneurysm and showed a stable 4.2 cm thoracic aneurysm. This will need followed closely as I would expect this to enlarge with time. We did discuss with the patient that eventually a surgical discussion may need to be pursued with regards to his aneurysm but with his comorbidities I am not sure that he would be a candidate for surgical intervention. He was instructed to follow-up with his PCP within a week and he was given referral to follow-up with neurology within the next 4 weeks. He also follows with cardiology and is to follow-up with them as scheduled. Discharge diagnoses: Acute right MCA stroke Stable descending thoracic aortic aneurysm Noncardiac chest pain Rash Ischemic cardiomyopathy HFrEF-35% History of aortic arch thrombus PAF History of stroke CAD Hypertension Hyperlipidemia COPD Diabetes Diabetic neuropathy GERD Physical Exam Const alert, oriented x3 and no apparent distress Constitutional Narrative: A middle-aged white male who appears much older than stated age sitting up in bed, speech therapy is at the bedside, he appears comfortable at this time and is nontoxic General Appearance: cooperative, comfortable, well kempt and well developed HEENT normocephalic, head/scalp atraumatic, hearing grossly normal bilaterally, moist oral mucous membranes and oropharynx normal Eyes PERRL, EOMs intact bilaterally and conjunctivae normal Neck no lymphadenopathy, supple, no JVD and no carotid bruits Resp normal respiratory effort, no retractions, no use of accessory muscles and clear to auscultation bilaterally Resp Narrative: Diminished but clear Auscultation: Negative for crackles, rales, rhonchi or wheezes Cardio regular rate, regular rhythm, S1 normal heart sound, S2 normal heart sound, no murmurs, no rub, no gallops, no clicks and no JVD GI normal to inspection, nondistended, normoactive bowel sounds, soft to palpation, non-tender and non-distended; Negative for hepatosplenomegaly Extremity no clubbing, cyanosis or edema Extremity Narrative: 1+ pedal pulses, cap refill 2+ Skin no wounds, skin turgor normal, no jaundice, no petechiae and no mottling Skin Narrative: Pinpoint erythematous rash located predominantly on his distal bilateral lower extremities and distal bilateral upper extremities minimal rash noted on his trunk and none on his thighs or face patient is itching--> appears improved today Neuro oriented x3 Neuro Narrative: Minimal left upper extremity pronator drift remains, minimal left-sided facial droop remains, improved sensation in left upper and lower extremity, all other cranial nerves are normal Sensorium / Orientation: awake, alert, oriented to person, oriented to place and oriented to time Speech: speech normal Psych affect normal Psych Narrative: Very pleasant Weight / BMI Weight Weight: 83.824 kg Body Mass Index (BMI) 28.9 ABG / Lab / Microbiology Data Result Diagrams: 10/08/20 05:15 10/08/20 05:15 Laboratory: Laboratory Results - last 24 hr 10/07/20 13:03: POC Glucose 95 10/07/20 13:17: Troponin I High Sens 13 10/07/20 14:53: Troponin I High Sens 13 10/07/20 16:56: POC Glucose 197 H 10/07/20 19:15: Troponin I High Sens 11 10/07/20 20:45: POC Glucose 213 H 10/08/20 05:15: WBC 6.9, RBC 4.85, Hgb 14.7, Hct 45.8, MCV 94.4 H, MCH 30.3, MCHC 32.1, RDW Std Deviation 54.9 H, RDW Coeff of Jack 15.6 H, Plt Count 217, MPV 10.9, Immature Gran % (Auto) 0.400, Neut % (Auto) 63.6, Lymph % (Auto) 28.0, [place] % (Auto) 3.9, Eos % (Auto) 2.9, Baso % (Auto) 1.2 H, Absolute Neuts (auto) 4.4, Absolute Lymphs (auto) 1.93, Nucleated RBC % 0 10/08/20 05:15: Sodium 133 L, Potassium 3.8, Chloride 102, Carbon Dioxide 25.0, Anion Gap 6, BUN 22 H, Creatinine 1.32 H, Estim Creat Clear Calc 57.03, Est GFR (MDRD) Af Amer 72, Est GFR (MDRD) Non-Af 59 L, BUN/Creatinine Ratio 16.7, Glucose 203 H, Calcium 9.0, Phosphorus 3.1, Magnesium 2.2, Total Bilirubin 0.40, AST 14 L, ALT 21, Alkaline Phosphatase 42 L, Total Protein 6.8, Albumin 3.4, Globulin 3.4, Albumin/Globulin Ratio 1.0 10/08/20 06:20: POC Glucose 161 H Radiography Diagnostic Testing: Radiology Impression Chest CT 10/07/20 15:26 IMPRESSION: * 5.03 x 4.24 cm aneurysm of the mid region of the descending thoracic aorta (see image #[id number] series 2). 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 No visualized inflammatory stranding or fluid collections or evidence of mediastinitis. * Mild paraseptal cystic changes are present in the bilateral lung apices. No visualized consolidation or pulmonary edema or pleural effusion. Several small cysts are present in the left lower lobe. Electronically Signed: Jeff Wallace MD at 16:47 EDT , Service support , Brain CT 10/08/20 05:55 IMPRESSION: 1. Hyperdense right-sided MCA sign suggestive of acute right MCA infarct. 2. No CT evidence of acute intracranial hemorrhage. N.B. : The above Results were Read Back by Toma Boston MD to Dilma Gonzalez RN, and understanding confirmed on 10/08/2020 06:52:16 (ET). Electronically Signed: Toma Boston MD at 6:57 EDT , Service support , ADDENDUM: 10/08/20 0704 IMPRESSION: 1. Hyperdense right-sided MCA sign suggestive of acute right MCA infarct. 2. No CT evidence of acute intracranial hemorrhage. N.B. : The above Results were Read Back by Toma Boston MD to Dilma Gonzalez RN, and understanding confirmed on 10/08/2020 06:52:16 (ET). Electronically Signed: Toma Boston MD at 6:57 EDT , Service support , D/C Instructions Discharge Diet: Low fat / Low cholesterol and 1800 Calorie Control Diet Discharge Activity: Return to Normal Activity Meaningful Use Info Meaningful Use Diagnoses (Choose all that apply): Ischemic CVA CVA Therapy Assessed for PT,OT and/or ST?: Yes Ischemic Stroke Antithrombotic order at d/c?: Yes Dx of Atrial fib/flutter?: No Anticoagulant at discharge?: Yes Statins at discharge?: Yes Primary Dx Acute Ischemic CVA?: Yes IV tPA ordered during stay?: No Reason IV t-PA not ordered: Medical Contraindication Discharge Plan Admission Admit Date/Time: 10/07/20 12:12 Primary Reason for Your Visit: stroke Attending Provider: Yara Wilkerson Primary Care Provider: Oral Manuel Discharge Orders/Prescriptions Prescriptions: New prednisone 20 mg Tablet 40 mg PO LUNCH 5 Days Qty: 10 RF: 0 Continued pantoprazole 40 mg tablet,delayed release (DR/EC) 40 mg PO BID RF: 0 gabapentin 600 mg tablet 600 mg PO 4X/DAY RF: 0 albuterol sulfate 0.63 mg/3 mL solution for nebulization 0.63 mg INHALATION Q4H PRN (Reason: shortness of breath or wheezing) Qty: 270 RF: 4 amitriptyline 25 mg tablet 25 mg PO QHS RF: 0 alendronate 70 mg tablet 70 mg PO QWEEK RF: 0 ranolazine 1,000 mg tablet extended release 12 hr 1,000 mg PO BID 30 Days Qty: 60 RF: 11 apixaban 5 mg tablet 5 mg PO BID RF: 0 clopidogrel 75 mg tablet 75 mg PO DAILY RF: 0 Jardiance 10 mg tablet 10 mg PO DAILY RF: 0 fenofibrate nanocrystallized 145 mg tablet 145 mg PO DAILY RF: 0 nitroglycerin 0.4 mg tablet, sublingual 0.4 mg sublingual Q5M PRN (Reason: Pain) RF: 0 magnesium oxide 400 MG tablet 400 mg PO DAILY RF: 0 furosemide 40 mg tablet 40 mg PO DAILY RF: 0 atorvastatin 80 MG tablet 80 mg PO QHS RF: 0 metoprolol succinate 50 mg tablet extended release 24 hr 25 mg PO DAILY RF: 0 Referrals / Follow Up: Oral Manuel MD [Primary Care Provider] - In 1 Week Boaz Gee MD [STAFF PHYSICIAN] - Within 1 Month Disposition Disposition (needs filled in before D/C Order can be placed): Home, Self Care Charges/Coding Visit Charges Inpatient E&M: 10368 Disch Hosp
--- NOTE | 2020-10-08 10:35 | CASEMGMT ---
Addendum entered by Frances Joseph 10/08/20 15:22: Call back from Abundio in Cardiac rehab and he explained that they have attempted to set pt up for rehab several times and pt doesn't answer or has been a no show and he states they will need another qualifying cardiac event to set up rehab again. Call to pt to update and pt states he has not received any calls/messages from anyone and he has never had rehab set up. This RN CM advised pt that will notify Dr. Albert's nurse in regards to same and pt does f/u with them in about a month. Pt states had recent OK in the last month or so. Message left with Anne, Dr. Albert's nurse, as well as [facility]io in cardiac rehab in regards to pt's concerns/comments. Both advised to call this RN CM for any further questions. Stephen SALMERON CM Addendum entered by Frances Joseph 10/08/20 10:56: Pt updated on all and if gets discharged prior to hearing back from rehab, this RN CM or rehab with f/u with pt. Pt voices no further questions/concerns/needs. Stephen SALMERON CM Original Note: This RN CM to room to discuss discharge plan with pt. Pt states was supposed to be set up with cardiac rehab s/p previous visit. Call to cardiology office and per Anne, order was sent for pt on 09/18/20 and message left with Abundio in cardiac rehab to call this RN CM back. CM to follow. Stephen SALMERON CM
--- NOTE | 2020-10-08 10:37 | PCM.DC ---
Discharge Instructions Diet Discharge Diet: Low fat / Low cholesterol and 1800 Calorie Control Diet Follow Up Care Test Results: Test results from this visit will be discussed in further detail at your follow-up appointment, if applicable. Discharge Plan Admission Admit Date/Time: 10/07/20 12:12 Primary Reason for Your Visit: stroke Attending Provider: Yara Wilkerson Primary Care Provider: Oral Manuel Discharge Orders/Prescriptions Prescriptions: New prednisone 20 mg Tablet 40 mg PO LUNCH 5 Days Qty: 10 RF: 0 Continued pantoprazole 40 mg tablet,delayed release (DR/EC) 40 mg PO BID RF: 0 gabapentin 600 mg tablet 600 mg PO 4X/DAY RF: 0 albuterol sulfate 0.63 mg/3 mL solution for nebulization 0.63 mg INHALATION Q4H PRN (Reason: shortness of breath or wheezing) Qty: 270 RF: 4 amitriptyline 25 mg tablet 25 mg PO QHS RF: 0 alendronate 70 mg tablet 70 mg PO QWEEK RF: 0 ranolazine 1,000 mg tablet extended release 12 hr 1,000 mg PO BID 30 Days Qty: 60 RF: 11 apixaban 5 mg tablet 5 mg PO BID RF: 0 clopidogrel 75 mg tablet 75 mg PO DAILY RF: 0 Jardiance 10 mg tablet 10 mg PO DAILY RF: 0 fenofibrate nanocrystallized 145 mg tablet 145 mg PO DAILY RF: 0 nitroglycerin 0.4 mg tablet, sublingual 0.4 mg sublingual Q5M PRN (Reason: Pain) RF: 0 magnesium oxide 400 MG tablet 400 mg PO DAILY RF: 0 furosemide 40 mg tablet 40 mg PO DAILY RF: 0 atorvastatin 80 MG tablet 80 mg PO QHS RF: 0 metoprolol succinate 50 mg tablet extended release 24 hr 25 mg PO DAILY RF: 0 Referrals / Follow Up: Oral Manuel MD [Primary Care Provider] - In 1 Week Boaz Gee MD [STAFF PHYSICIAN] - Within 1 Month Disposition Disposition (needs filled in before D/C Order can be placed): Home, Self Care
[2020-10-08] MEDS: predniSONE 20 MG Tablet 40 MG PO (10:51)
--- NOTE | 2020-10-08 10:58 | CASEMGMT ---
SW completed a PHQ 9 with patient as he had a Stroke. He scored a 5 which indicates mild depression. He declined any need for counseling resources. He did accept information on [facility] Stroke support group. Jacqueline SZYMANSKI
[2020-10-08 11:26] LABS: Bedside Glucose 146 mg/dL (70-110)
--- NOTE | 2020-10-08 12:03 | PHA.DC.MC ---
Pharmacy Service has performed discharge medication reconciliation and counseling for this patient. 1. PREDNISONE 40MG PO LUNCH X 5 DAYS The patient's discharge medication list was reviewed for discrepancies and discrepancies were resolved. Home Medications magnesium oxide 400 mg PO DAILY 11/07/18 pantoprazole 40 mg tablet,delayed release 40 mg PO BID 11/15/18 albuterol sulfate 0.63 mg/3 mL solution for nebulization 0.63 mg INHALATION Q4H PRN #270 ml 07/12/19 amitriptyline 25 mg tablet 25 mg PO QHS 08/17/19 atorvastatin 80 mg PO QHS 02/15/20 alendronate 70 mg tablet 70 mg PO QWEEK tablet 03/15/20 gabapentin 600 mg tablet 600 mg PO 4X/DAY tablet 03/15/20 ranolazine 1,000 mg tablet,extended release,12 hr 1,000 mg PO BID 30 Days #60 tablet 06/10/20 apixaban 5 mg tablet 5 mg PO BID 09/13/20 clopidogrel 75 mg tablet 75 mg PO DAILY 09/13/20 empagliflozin 10 mg tablet 10 mg PO DAILY 09/13/20 fenofibrate nanocrystallized 145 mg tablet 145 mg PO DAILY 09/13/20 furosemide 40 mg tablet 40 mg PO DAILY tab 09/13/20 metoprolol succinate 50 mg tablet,extended release 24 hr 25 mg PO DAILY tab 09/13/20 nitroglycerin 0.4 mg sublingual tablet 0.4 mg SUBLINGUAL Q5M PRN 09/13/20 prednisone 40 mg PO LUNCH 5 Days #10 tab 10/08/20 The patient was counseled on the following discharge medications and changes in medications for homegoing were reviewed. The Reason for Use, instructions for use, and potential side effects were reviewed for all new medications. The patient's questions regarding all of their medications were answered. The patient was able to verbally demonstrate an understanding of their discharge medications.
== END 2020-10-08 10:19 | disposition home or self-care (01) ==
LOC: ED 08:45 → PCU 13:00
PROVIDERS: Admitting Provider Internal Medicine; Emergency Provider Emergency Medicine; PCP Family Medicine; Visit Provider Internal Medicine
DX: R29.810 Facial weakness (principal); I11.0 Hypertensive heart disease with heart failure; I50.22 Chronic systolic (congestive) heart failure; R21 Rash and other nonspecific skin eruption; I25.810 Atherosclerosis of coronary artery bypass graft(s) without angina pectoris; J44.9 Chronic obstructive pulmonary disease, unspecified; E78.5 Hyperlipidemia, unspecified; K21.9 Gastro-esophageal reflux disease without esophagitis; F41.9 Anxiety disorder, unspecified; F32.9 Major depressive disorder, single episode, unspecified; I25.2 Old myocardial infarction; G47.33 Obstructive sleep apnea (adult) (pediatric); I25.5 Ischemic cardiomyopathy; R91.1 Solitary pulmonary nodule; M06.9 Rheumatoid arthritis, unspecified; I48.0 Paroxysmal atrial fibrillation; F17.210 Nicotine dependence, cigarettes, uncomplicated; I71.2 Thoracic aortic aneurysm, without rupture; E11.40 Type 2 diabetes mellitus with diabetic neuropathy, unspecified; I25.10 Atherosclerotic heart disease of native coronary artery without angina pectoris; Z79.899 Other long term (current) drug therapy; Z79.01 Long term (current) use of anticoagulants; Z86.73 Personal history of transient ischemic attack (TIA), and cerebral infarction without residual deficits; Z79.02 Long term (current) use of antithrombotics/antiplatelets; Z95.810 Presence of automatic (implantable) cardiac defibrillator
CPT/HCPCS: 36415; 70450; 71045; 71260; 80053; 81001; 82962; 83735; 84100; 84484; 85025; 92610; 93005; 96374; 97162; 97530; 97802; 99218; 99251; 99285; 99406; Q9967; A4216; G0378; G0463

== ENCOUNTER → 2020-10-16 12:28 | Outpatient (CLI) | payer MEDICARE, SELFPAY ==
[2018-12-13 11:07] VITALS: BMI 26.3
[2020-10-16 15:27] LABS: ALB/GLOB Ratio 0.9 RATIO (0.9-2.4); AST(SGOT) 16 U/L (15-37); Alanine Aminotransfer ALT/SGPT 26 U/L (16-61); Albumin, Serum 3.6 g/dL (3.2-5.0); Alkaline Phosphatase 48 U/L (45-117); Anion Gap 5 (5-15); BUN 16 mg/dL (7-18); BUN/Creat Ratio 11.8 RATIO (10-20); Calcium,Total 9.5 mg/dL (8.5-10.1); Chloride 106 mmol/L (98-107); Creatinine, Serum 1.36 mg/dL (0.70-1.30); EST Glomerular Filtration Rate 57 mL/min (>60); Est Glom Filt Rate - Afr Amer 69 mL/min (>60); Globulin 3.9 g/dL (2.2-4.2); Glucose 106 mg/dL (74-106); Potassium 3.9 mmol/L (3.5-5.1); Protein, Total 7.5 g/dL (6.4-8.2); Sodium Level 137 mmol/L (136-145)
[2020-10-16 15:30] LABS: Hemoglobin A1c 5.6 % (3.8-5.6)
[2020-10-16 15:38] LABS: Microalbumin,Random Urine 13.5 mg/L (NO RANGE EST.)
== END ==
PROVIDERS: Physician Assistant Medical; PCP Family Medicine; Referring Provider Family Medicine; Visit Provider Family Medicine
DX: E11.9 Type 2 diabetes mellitus without complications (principal)
CPT/HCPCS: 36415; 80053; 82043; 82570; 83036

== ENCOUNTER 2020-10-21 21:37 | Inpatient (IN) | payer MEDICARE, SELFPAY ==
[2018-12-13 11:07] VITALS: BMI 26.3
[2020-10-21 21:37] VITALS: BP 142/87; PULSE 107; RESP 19; TEMP 35.9; O2SAT 94; BMI 29.5
[2020-10-21 22:10] VITALS: O2SAT 89; O2SAT 93
--- NOTE | 2020-10-21 22:13 | EKG12_ITS ---
Test Reason : CP Blood Pressure : / mmHG Vent. Rate : 105 BPM Atrial Rate : 105 BPM P-R Int : 176 ms QRS Dur : 144 ms QT Int : 390 ms P-R-T Axes : 038 116 056 degrees QTc Int : 515 ms Sinus tachycardia Right bundle branch block Anterolateral infarct , age undetermined Abnormal ECG Confirmed by RADHA SMART, ALISON ([id number]), manuscript editor MARILUZ PAGE ([id number]) on 10/23/2020 9:18:03 AM Referred By: BOBBY Confirmed By:ALISON GARCIA MD
--- NOTE | 2020-10-21 22:13 | RAD_ITS ---
STUDY: X-RAY CHEST REASON FOR EXAM: Male, 60 years old. chest pain TECHNIQUE: Single AP portable view of the chest. COMPARISON: 10/07/2020 FINDINGS: Stable left chest wall pacing device The lungs are clear and expanded. There is no demonstrated pleural abnormality. Normal size heart. Normal mediastinum and jovanni. Normal visualized pulmonary arteries. Normal visualized aortic arch and descending thoracic aorta. Normal visualized thoracic spine. Normal visualized ribs, clavicles, and shoulders. There is no demonstrated abnormality of the visualized soft tissue structures of the upper abdomen. RAD/Chest 1 View (Portable) IMPRESSION: Normal x-ray examination of the chest. Electronically Signed: Ranjit Paz DO at 22:31 EDT Tel , Service support ,
[2020-10-21 22:20] VITALS: O2SAT 95
[2020-10-21 22:27] LABS: Absolute Lymphocyte Count 2.15 X10^3/uL (0.83-4.51); Absolute Neutrophil Count 4.6 X10^3/uL (2.0-7.7); Basophil# 0.11 X10^3/uL; Basophil% 1.4 % (0-1); Eosinophil# 0.27 X10^3/uL; Eosinophils% 3.5 % (0-5); Hematocrit 46.6 % (40-54); Hemoglobin 15.4 g/dL (13.0-16.5); Lymphocyte # 2.15 X10^3/ul (0.83-4.51); Lymphocyte % 28.1 % (19-41); Mean Corpuscular Hgb 30.7 pg (27.0-32.0); Mean Platelet Vol. 10.6 fl (6.2-12.0); Monocyte# 0.44 X10^3/uL; Monocyte% 5.8 % (0-10); NRBC Flagged by Analyzer 0 % (0-5); Neutrophil # 4.62 X10^3/uL (2.7-7.7); Neutrophil % 60.4 % (47-70); Platelet Count 269 K/mm3 (150-450); RBC Distribution Width CV 15.6 % (11.6-14.6); RBC Distribution Width SD 53.1 fl (35.1-43.9); Red Blood Count 5.01 M/mm3 (4.6-6.2); White Blood Count 7.7 K/mm3 (4.4-11.0)
[2020-10-21 22:41] LABS: Anion Gap 6 (5-15); BUN 24 mg/dL (7-18); BUN/Creat Ratio 17.1 RATIO (10-20); Calcium,Total 9.2 mg/dL (8.5-10.1); Chloride 109 mmol/L (98-107); EST Glomerular Filtration Rate 55 mL/min (>60); Est Glom Filt Rate - Afr Amer 67 mL/min (>60); Estimated Creatinine Clearance 53.77 ml/min; Glucose 163 mg/dL (74-106); Potassium 3.4 mmol/L (3.5-5.1); Sodium Level 139 mmol/L (136-145); Troponin-I HS 29 pg/mL (3.0-78.0)
[2020-10-21 23:26] VITALS: BP 141/83; PULSE 94; RESP 17; O2SAT 95
[2020-10-21] MEDS: Aspirin 81 MG TAB.CHEW 324 MG PO (23:26)
--- NOTE | 2020-10-21 23:27 | ED.RN ---
patient declined the asa stating he is allergic to asa. Told Dr Díaz who reports the patient told him he takes baby asa daily. Went back to patient and he states he is allergic to asa and tylenol but not allergic to baby asa so he cannot take regular asa. Explained to him baby asa x 4 is what he is getting and adult asa is a dose difference. Pt agreeable and took 4 bby asa
[2020-10-22] VITALS (23 sets, daily range): BP systolic 115–151; BP diastolic 73–94; PULSE 74–93; RESP 15–21; TEMP 36.3–37; O2SAT 93–97; BMI 29.5; BMI 29.3
[2020-10-22 00:34] LABS: Troponin-I HS 158 pg/mL (3.0-78.0)
--- NOTE | 2020-10-22 00:46 | ED.VIS.CHEST ---
HPI History of Present Illness Chief Complaint: Chest Pain Narrative Narrative: Patient presenting for evaluation secondary to chest pain. Patient has a extensive history including coronary artery disease with multiple MIs, past coronary artery bypass graft, past history of multiple strokes and TIAs. Patient states that about an hour prior to arrival he developed chest pain that seem consistent with his past cardiac chest pain. He described it as a heavy type pain associated with a burning type feeling the way down his left arm. He reports that he was pouring sweat. Patient states that he was somewhat short of breath associated with this. No significant exacerbating relieving factors. He denies being lightheaded or passing out. Review of systems is otherwise negative. [facility] Medical History Abdominal aortic aneurysm (AAA) Abnormal PFT Anxiety Atherosclerosis of coronary artery bypass graft of [place] heart with angina pectoris Chronic HFrEF (heart failure with reduced ejection fraction) COPD (chronic obstructive pulmonary disease) CVA (cerebral vascular accident) Depression Depression with anxiety Descending aortic aneurysm Esophageal stricture Essential (primary) hypertension GERD (gastroesophageal reflux disease) GERD (gastroesophageal reflux disease) History of CVA (cerebrovascular accident) History of non-ST elevation myocardial infarction (NSTEMI) (08/09/20) HLD (hyperlipidemia) Hypersomnia Hypomagnesemia syndrome Ischemic cardiomyopathy Left lower lobe pulmonary nodule Neuropathic pain Nicotine dependence LETTY (obstructive sleep apnea) Osteoporosis PAF (paroxysmal atrial fibrillation) Peripheral vascular occlusive disease Rheumatoid arthritis Stroke TIA (transient ischemic attack) Home Medications magnesium oxide 400 mg PO DAILY 11/07/18 [History Last Taken 04/20/20] pantoprazole 40 mg tablet,delayed release 40 mg PO BID 11/15/18 [History Last Taken 05/20/20] albuterol sulfate 0.63 mg/3 mL solution for nebulization 0.63 mg INHALATION Q4H PRN #270 ml 07/12/19 [Rx Last Taken 05/20/20] amitriptyline 25 mg tablet 25 mg PO QHS 08/17/19 [History Last Taken 04/20/20] atorvastatin 80 mg PO QHS 02/15/20 [History Last Taken 04/20/20] alendronate 70 mg tablet 70 mg PO QWEEK tablet 03/15/20 [History Last Taken 04/15/20] gabapentin 600 mg tablet 600 mg PO 4X/DAY tablet 03/15/20 [History Last Taken 05/20/20] apixaban 5 mg tablet 5 mg PO BID 09/13/20 [History Last Taken Unknown] clopidogrel 75 mg tablet 75 mg PO DAILY 09/13/20 [History Last Taken Unknown] empagliflozin 10 mg tablet 10 mg PO DAILY 09/13/20 [History Last Taken Unknown] fenofibrate nanocrystallized 145 mg tablet 145 mg PO DAILY 09/13/20 [History Last Taken Unknown] furosemide 40 mg tablet 40 mg PO DAILY tab 09/13/20 [History Last Taken Unknown] metoprolol succinate 50 mg tablet,extended release 24 hr 25 mg PO DAILY tab 09/13/20 [History Last Taken Unknown] nitroglycerin 0.4 mg sublingual tablet 0.4 mg SUBLINGUAL Q5M PRN 09/13/20 [History Last Taken Unknown] docusate sodium [Colace] 50 mg PO DAILY 10/21/20 [History Last Taken Unknown] ranolazine [Ranexa] 1,000 mg PO BID 10/21/20 [History Last Taken Unknown] aspirin 81 mg PO DAILY 10/22/20 [History Last Taken Unknown] Allergy/AdvReac Type Severity Reaction Status Date / Time latex Allergy Unknown unknown Verified 10/21/20 21:42 acetaminophen Allergy Anaphylaxis Verified 10/21/20 21:42 [From Darvocet-N] diphenhydramine Allergy Rash Verified 10/21/20 21:42 [From Benadryl] NSAIDS (Non-Steroidal Allergy Anaphylaxis Verified 10/21/20 21:42 Anti-Inflamma peas Allergy Rash Verified 10/21/20 21:42 Penicillins Allergy Anaphylaxis Verified 10/21/20 21:42 propoxyphene Allergy Anaphylaxis Verified 10/21/20 21:42 [From Darvocet-N] hydrocodone [From Vicodin] AdvReac Mild Nausea/Vom/ Verified 10/21/20 21:42 Diarrhea peppercorn AdvReac NEEDS Uncoded 10/21/20 21:42 FOLLOW-UP Family History Sister CVA (cerebral vascular accident) Heart disease Hypertension High cholesterol Diabetes Cancer lung cancer Father Arthritis Cancer myeloma Mother Arthritis Cancer Brain cancer Surgical History H/O coronary artery bypass surgery (01/28/12) History of angioplasty of peripheral vessel (01/2015) History of coronary artery stent placement (12/13/18) History of implantable cardiac defibrillator (ICD) (09/15/17) History of left heart catheterization (05/20/20) History of left inguinal hernia repair S/P femoral-tibial bypass (12/28/18) Social History household members: significant other Smoking Status: Current every day smoker tobacco type: cigarettes Tobacco: How many years used: 40 quit status: considering quitting alcohol intake: never substance use type: does not use caffeine: Yes (cola) Type: carbonated beverages Number of servings: 5 ROS ROS ED Constitutional Constitutional ED: Denies fever(s) Eyes Eyes: Denies change in vision ENT ENT ED: Denies rhinorrhea or sore throat Cardiovascular Cardiovascular: Reports as per HPI Respiratory/Chest Respiratory/Chest: Reports dyspnea Gastrointestinal Gastrointestinal: Denies abdominal pain, nausea or vomiting Genitourinary Genitourinary ED: Denies dysuria Musculoskeletal Musculoskeletal: Denies myalgias or neck pain Integumentary Denies rash Neurologic Neurologic: Denies headache(s), paresthesias or weakness Psychiatric Psychiatric: Denies depression Endocrine Endocrinology: Denies polydipsia or polyuria Hematologic/Lymphatic Hematologic/Lymphatic: Denies easy bleeding or easy bruising Allergic/Immunologic Allergic/Immunologic ED: Denies urticaria EXAM Physical Exam Const Vital Signs: 10/21/20 21:37 10/21/20 22:10 10/21/20 22:20 Temperature 96.7 F L Temperature Source Temporal Pulse Rate 107 H Respiratory Rate 19 H Blood Pressure 142/87 H Blood Pressure Mean 105 Blood Pressure Source Blood Pressure Position Blood Pressure Location Pulse Ox 94 93 95 Oxygen Delivery Method Room Air Nasal Cannula Nasal Cannula Oxygen Flow Rate (L/min) 2 2 10/21/20 23:26 10/22/20 00:40 10/22/20 00:50 Temperature 98.2 F Temperature Source Temporal Pulse Rate 94 88 74 Respiratory Rate 17 17 21 H Blood Pressure 141/83 H 127/84 H 132/82 H Blood Pressure Mean 102 98 98 Blood Pressure Source Blood Pressure Position Blood Pressure Location Pulse Ox 95 93 94 Oxygen Delivery Method Nasal Cannula Nasal Cannula Nasal Cannula Oxygen Flow Rate (L/min) 2 2 10/22/20 01:20 10/22/20 01:27 10/22/20 01:30 Temperature 97.4 F L 97.3 F L Temperature Source Temporal Temporal Pulse Rate 87 88 86 Respiratory Rate 17 18 Blood Pressure 150/94 H 151/88 H Blood Pressure Mean 112 109 Blood Pressure Source Blood Pressure Position Blood Pressure Location Pulse Ox 94 94 Oxygen Delivery Method Nasal Cannula Oxygen Flow Rate (L/min) 2 2 10/22/20 01:44 10/22/20 01:52 10/22/20 02:20 Temperature 98.6 F 97.9 F Temperature Source Temporal Oral Pulse Rate 91 74 86 Respiratory Rate 18 18 Blood Pressure 144/86 H 144/86 H 126/73 H Blood Pressure Mean 105 105 90 Blood Pressure Source Monitor Blood Pressure Position Semi-Fowlers Supine Blood Pressure Location Left Arm Right Arm Pulse Ox 94 97 Oxygen Delivery Method Nasal Cannula Nasal Cannula Oxygen Flow Rate (L/min) 2 2 Positive well nourished and well developed Constitutional Narrative: Well-appearing male who appears older than stated age sitting upright in bed not acutely distressed General Appearance ED: well developed and NAD HEENT Reports moist mucous membranes HEENT Narrative: Tobacco stained tongue normocephalic and atraumatic Eyes EOMs intact bilaterally Neck no lymphadenopathy, supple and no JVD Chest Wall inspection of chest normal and palpation of chest normal Chest Narrative: No evidence of vesicular rash Resp normal respiratory effort and clear to auscultation bilaterally Auscultation: Negative for rales, rhonchi or wheezes Cardio regular rate, regular rhythm, S1 normal heart sound, S2 normal heart sound and no murmurs Peripheral Pulses: radial pulses present and posterior tibial pulses present GI normal to inspection, nondistended, normoactive bowel sounds, soft to palpation and non-tender Extremity normal to inspection Extremity Narrative: Calves are supple no palpable cord General Extremety ED: Negative for edema or tenderness General Extremity: Negative for edema Neuro oriented x3 and no sensory deficits noted Sensorium / Orientation: awake and alert Psych mental status grossly normal Skin no rashes or lesions noted Heart Score History: Highly Suspicious ECG: Nonspecific Repolarization Age: >45 - <65 years Risk Factors: >/= 3 Risk Factors or History of CAD Troponin: >/=3 x Normal Limit Score: 8 MDM MDM MDM Narrative Medical decision making narrative: Patient presented secondary to chest pain. He was administered aspirin in the emergency department. EKG demonstrates no acute changes. Chest x-ray by my personal review is unremarkable. CBC demonstrates no significant abnormalities, chemistry shows no significant electrolyte derangements renal function shows creatinine at 1.4. Initial high-sensitivity troponin was 29. Patient's has extensive history of cardiovascular disease, repeat cardiac troponin was significantly elevated 158. I went back and reevaluated the patient, states that he is continuing to have chest pain. Initially I ordered Lovenox and nitroglycerin on the patient, but then it became apparent that the patient was stating that he was developing some left-sided weakness. Patient states that he has had left-sided weakness in the past secondary to strokes, but on my repeat evaluation of the patient at that time he had a NIH stroke scale of 3 which she stated that he developed within the time that he was waiting for his cardiac work-up, so stroke team was activated. Patient was taken immediately to CT given his concomitant chest pain I was also concerned for the possibility of dissection so angiograms of the brain and cervical spine and chest were performed. Per radiology these studies were negative for acute process. Patient informed me that he took his Eliquis just prior to arrival, which means that he is not a candidate for TPA. I discussed this with the teleneurologist who did agree. Patient will not be treated with nitroglycerin at this point as he potentially needs the neuro protection of increased cerebral perfusion pressure, but he will be treated with therapeutic Lovenox as he potentially is having an acute coronary syndrome. Patient was discussed with the hospitalist, patient will be admitted for further treatment. Lab Data Labs: Laboratory Results - last 24 hr 10/21/20 10/21/20 10/22/20 21:43 21:43 00:02 WBC 7.7 RBC 5.01 Hgb 15.4 Hct 46.6 MCV 93.0 MCH 30.7 MCHC 33.0 RDW Std Deviation 53.1 H RDW Coeff of Jack 15.6 H Plt Count 269 MPV 10.6 Immature Gran % (Auto) 0.800 Neut % (Auto) 60.4 Lymph % (Auto) 28.1 [place] % (Auto) 5.8 Eos % (Auto) 3.5 Baso % (Auto) 1.4 H Absolute Neuts (auto) 4.6 Absolute Lymphs (auto) 2.15 Nucleated RBC % 0 PT INR APTT Sodium 139 Potassium 3.4 L Chloride 109 H Carbon Dioxide 24.0 Anion Gap 6 BUN 24 H Creatinine 1.40 H Estim Creat Clear Calc 53.77 Est GFR (MDRD) Af Amer 67 Est GFR (MDRD) Non-Af 55 L BUN/Creatinine Ratio 17.1 Glucose 163 H Calcium 9.2 Troponin I High Sens 29 158 H* 10/22/20 01:10 WBC RBC Hgb Hct MCV MCH MCHC RDW Std Deviation RDW Coeff of Jack Plt Count MPV Immature Gran % (Auto) Neut % (Auto) Lymph % (Auto) [place] % (Auto) Eos % (Auto) Baso % (Auto) Absolute Neuts (auto) Absolute Lymphs (auto) Nucleated RBC % PT 16.7 H INR 1.4 APTT 39.8 H Sodium Potassium Chloride Carbon Dioxide Anion Gap BUN Creatinine Estim Creat Clear Calc Est GFR (MDRD) Af Amer Est GFR (MDRD) Non-Af BUN/Creatinine Ratio Glucose Calcium Troponin I High Sens Radiography Chest X-Ray - ED: 1 View, Read by ED Physician and Normal Diagnostic Testing: Radiology Impression Chest X-Ray 10/21/20 22:13 IMPRESSION: Normal x-ray examination of the chest. Electronically Signed: Ranjit Paz DO at 22:31 EDT Tel , Service support , Brain CT 10/22/20 00:50 IMPRESSION: Chronic involutional changes of the brain. No significant change from recent prior N.B. : The above Results were Read Back by Ranjit Paz DO to Dr. Bre MD, and understanding confirmed on 10/22/2020 01:07:01 (ET). Electronically Signed: Ranjit Paz DO at 1:08 EDT Tel , Service support , Head/Neck CTA 10/22/20 00:52 IMPRESSION: Normal CTA Head and neck with contrast. N.B. : The above Results were Read Back by Ranjit Paz DO to Dr. Bre MD, and understanding confirmed on 10/22/2020 01:25:52 (ET). Electronically Signed: Ranjit Paz DO at 1:26 EDT Tel , Service support , ADDENDUM: 10/22/20 0133 IMPRESSION: Normal CTA Head and neck with contrast. N.B. : The above Results were Read Back by Ranjit Paz DO to Dr. Bre MD, and understanding confirmed on 10/22/2020 01:25:52 (ET). Electronically Signed: Ranjit Paz DO at 1:26 EDT Tel , Service support , Chest CTA 10/22/20 00:53 IMPRESSION: Normal CTA chest examination, without a demonstrated pulmonary embolism or arterial dissection. Lungs are clear. Atherosclerotic disease of the thoracic aorta however, no evidence of dissection or aneurysm. Electronically Signed: Ranjit Paz DO at 1:29 EDT Tel , Service support , EKG Initial EKG: Attestation: I personally reviewed and interpreted this EKG as follows: (Sinus rhythm 97, left axis deviation is noted. There is a left bundle branch block morphology that was present on prior EKG, no evidence of pathologic ST segment deviation no acute ischemia is noted.) Critical Care Time Critical care time (excluding procedures): 30-74 minutes (59), Including time spent:, Discussing w/Patient &/or Family/Chemical Project Engineer, Discussing w/Consultants, Arranging Admission or Transfer and Performing Direct Patient Care at Bedside Discharge Plan Triage Chief Complaint: Chest Pain ED Provider: Kane Díaz Dx/Rx/DC Orders Clinical Impression: Atherosclerosis of coronary artery bypass graft of [place] heart with angina pectoris, CVA (cerebral vascular accident) Primary Care Provider: Oral Manuel Disposition Disposition: Acute Care Hospital [facility] Discharge Date/Time: 10/22/20 02:10
--- NOTE | 2020-10-22 00:50 | CT_ITS ---
STUDY: CT HEAD STROKE PROTOCOL W/O CONTRAST INJECTION REASON FOR EXAM: Male, 60 years old. Neuro deficit, acute, stroke suspected RADIATION DOSAGE (If Supplied By Facility): CTDIvol = ( ) mGy, DLP = ( ) mGycm TECHNIQUE: Transaxial CT imaging of the brain was performed without administration of intravenous contrast material. Individualized dose optimization techniques were used for this CT. COMPARISON: Head CT dated 10/08/2020 FINDINGS: Normal soft tissue structures. Normal calvarium. There is mild cerebral atrophy with widening of the extra-axial spaces and ventricular dilatation. There are areas of decreased attenuation within the white matter tracts of the supratentorial brain, consistent with microvascular disease changes. Normal basal ganglia and thalami. Normal brainstem. Normal cerebellum. There is no intracranial hemorrhage. There are no findings of an acute ischemic infarction. Normal visualized paranasal sinuses. CT/STROKE Brain/Head without Cont IMPRESSION: Chronic involutional changes of the brain. No significant change from recent prior N.B. : The above Results were Read Back by Ranjit Paz DO to Dr. Bre MD, and understanding confirmed on 10/22/2020 01:07:01 (ET). Electronically Signed: Ranjit Paz DO at 1:08 EDT Tel , Service support ,
--- NOTE | 2020-10-22 00:52 | CT_ITS ---
STUDY: CTA HEAD AND NECK WITH CONTRAST REASON FOR EXAM: Male, 60 years old. Neuro deficit, acute, stroke suspected RADIATION DOSAGE (If Supplied By Facility): CTDIvol = ( 20.47 ) mGy, DLP = ( 2039.49 ) mGycm TECHNIQUE: CT angiography was performed with a multi-detector CT scanner. Data acquisition was obtained from the skull base through the vertex following intravenous administration of IV 100mL Isovue-370. MIP images were reconstructed from the axial data set. Post-processing of the angiographic images was performed, with multiplanar reformation and 3D reconstruction. Individualized dose optimization techniques were used for this CT. COMPARISON: No relevant priors. FINDINGS: Normal bilateral petrous carotid arteries. There is calcified plaque formation of the right cavernous carotid artery, without a cross-sectional luminal stenosis. There is calcified plaque formation of the left cavernous carotid artery, without a cross-sectional luminal stenosis. Normal right A1 segments of the anterior cerebral artery. Normal left A1 segments of the anterior cerebral artery. Normal intact anterior communicating artery (ACOM). Normal bilateral A2 segments of the anterior cerebral arteries. Normal right M1 and M2 segments of the middle cerebral arteries, with a normal M1 bifurcation. Normal left M1 and M2 segments of the middle cerebral arteries, with a normal M1 bifurcation. Normal right posterior communicating artery (PCOM). There is non-visualization of the left posterior communicating artery (PCOM). Normal bilateral vertebral arteries. Normal basilar artery with a normal basilar bifurcation. The visualized bilateral superior cerebellar (SCA) arteries are normal. Normal bilateral P1, P2 and visualized P3 segments of the posterior cerebral arteries. There is no demonstrated aneurysm of the [place]. There is no demonstrated abnormality of the visualized brain. AORTIC ARCH: Normal visualized aortic arch. Normal origins of the brachiocephalic, left common carotid, and left subclavian arteries. RIGHT CAROTID ARTERIES: Normal right common carotid artery (CCA). There is mild atherosclerotic plaque formation with minimal narrowing of the right carotid bulb. Normal origin of the right internal carotid (ICA) artery without a hemodynamically significant stenosis. Normal visualized cervical portion of the right internal carotid artery. Normal origin of the right external carotid artery (ECA). LEFT CAROTID ARTERIES: Normal left common carotid artery (CCA). There is mild atherosclerotic plaque formation with minimal narrowing of the left carotid bulb. Normal origin of the left internal carotid (ICA) artery without a hemodynamically significant stenosis. Normal visualized cervical portion of the left internal carotid artery. Normal origin of the left external carotid artery (ECA). VERTEBRAL ARTERIES: Normal bilateral vertebral arteries. CT/STROKE CTA Head AND Neck W/Con IMPRESSION: Normal CTA Head and neck with contrast. N.B. : The above Results were Read Back by Ranjit Paz DO to Dr. Bre MD, and understanding confirmed on 10/22/2020 01:25:52 (ET). Electronically Signed: Ranjit aPz DO at 1:26 EDT Tel , Service support ,
--- NOTE | 2020-10-22 00:53 | CT_ITS ---
STUDY: CTA CHEST REASON FOR EXAM: Male, 60 years old. chest pain,stroke RADIATION DOSAGE (If Supplied By Facility): CTDIvol = ( 20.47 ) mGy, DLP = ( 2039.49 ) mGycm TECHNIQUE: The examination was performed with the intravenous administration of IV 100mL Isovue-370. Post-processing of the angiographic images was performed, with multiplanar reformation and 3D reconstruction. Individualized dose optimization techniques were used for this CT. COMPARISON: None. FINDINGS: Normal enhancement of the main pulmonary artery and right and left pulmonary arteries. Normal enhancement of the bilateral peripheral pulmonary arteries. There is no demonstrated pulmonary embolism. There is atherosclerotic calcification of the aortic arch with tortuosity. No evidence of thoracic aortic dissection or aneurysm. There is no demonstrated aortic dissection. Normal heart and pericardium. Normal mediastinum. Normal hilar regions. Normal visualized trachea and bronchi. The lungs are well expanded. Normal pulmonary parenchyma. Normal pleura. Normal chest wall structures. There are degenerative changes of thoracic spine. Normal visualized upper abdomen. CT/CTA Chest W/WO Contrast IMPRESSION: Normal CTA chest examination, without a demonstrated pulmonary embolism or arterial dissection. Lungs are clear. Atherosclerotic disease of the thoracic aorta however, no evidence of dissection or aneurysm. Electronically Signed: Ranjit Paz DO at 1:29 EDT Tel , Service support ,
[2020-10-22 01:30] LABS: International Normalized Ratio 1.4; Prothrombin Time (Protime)PT. 16.7 SECONDS (11.7-14.9)
[2020-10-22 01:31] LABS: Partial Thromboplast Time 39.8 Seconds (24.1-36.2)
--- NOTE | 2020-10-22 01:40 | NURSING ---
Dr Díaz gave okay to start lovenox injection and IV drip for the nitro
[2020-10-22] MEDS: Nitroglycerin Infusion 250 ML 3 MG CONT INF ×2 (01:44→16:19)
[2020-10-22] MEDS: Enoxaparin 100 MG/ML Syringe 90 MG SC (01:49)
--- NOTE | 2020-10-22 01:57 | ED.RN ---
Stopped IV nitro per vo from dr cruz
--- NOTE | 2020-10-22 02:13 | HP.PCM_ITS ---
HPI - General General Date of Admission: 10/22/20 HPI Narrative SALAZAR HOLT, is a 60 M who presents to the emergency room with chest pain. Patient has a significant past medical history of coronary artery disease and has had previous heart attacks, status post CABG and multiple stents. The pain began this evening after cleaning up from a green party they were having at home. The pain is described as substernal 9/10 in character radiating to the left shoulder. During my evaluation of the patient he revealed he also felt a left facial droop worse than his normal baseline along with left leg and arm weakness. I immediately notified the ER physician and the stroke team was called for evaluation. CT scan of the brain was negative for hemorrhage, CT angiogram of head and neck was within normal limits and CT angiogram of the chest was normal. In conference with the ER physician it was agreed that TPA was not indicated however the patient will be anticoagulated with heparin. Due to the fact that a second troponin had increased the patient will be admitted for further cardiac monitoring and management along with neurologic evaluation assessment. [facility] Medical History Abdominal aortic aneurysm (AAA) Abnormal PFT Anxiety Atherosclerosis of coronary artery bypass graft of [place] heart with angina pectoris Chronic HFrEF (heart failure with reduced ejection fraction) COPD (chronic obstructive pulmonary disease) CVA (cerebral vascular accident) Depression Depression with anxiety Esophageal stricture Essential (primary) hypertension GERD (gastroesophageal reflux disease) GERD (gastroesophageal reflux disease) History of CVA (cerebrovascular accident) History of non-ST elevation myocardial infarction (NSTEMI) (08/09/20) HLD (hyperlipidemia) Hypersomnia Hypomagnesemia syndrome Ischemic cardiomyopathy Left lower lobe pulmonary nodule Neuropathic pain Nicotine dependence LETTY (obstructive sleep apnea) Osteoporosis PAF (paroxysmal atrial fibrillation) Peripheral vascular occlusive disease Rheumatoid arthritis Stroke TIA (transient ischemic attack) Home Medications magnesium oxide 400 mg PO DAILY 11/07/18 [History Last Taken 04/20/20] pantoprazole 40 mg tablet,delayed release 40 mg PO BID 11/15/18 [History Last Taken 05/20/20] albuterol sulfate 0.63 mg/3 mL solution for nebulization 0.63 mg INHALATION Q4H PRN #270 ml 07/12/19 [Rx Last Taken 05/20/20] amitriptyline 25 mg tablet 25 mg PO QHS 08/17/19 [History Last Taken 04/20/20] atorvastatin 80 mg PO QHS 02/15/20 [History Last Taken 04/20/20] alendronate 70 mg tablet 70 mg PO QWEEK tablet 03/15/20 [History Last Taken 04/15/20] gabapentin 600 mg tablet 600 mg PO 4X/DAY tablet 03/15/20 [History Last Taken 05/20/20] apixaban 5 mg tablet 5 mg PO BID 09/13/20 [History Last Taken Unknown] clopidogrel 75 mg tablet 75 mg PO DAILY 09/13/20 [History Last Taken Unknown] empagliflozin 10 mg tablet 10 mg PO DAILY 09/13/20 [History Last Taken Unknown] fenofibrate nanocrystallized 145 mg tablet 145 mg PO DAILY 09/13/20 [History Last Taken Unknown] furosemide 40 mg tablet 40 mg PO DAILY tab 09/13/20 [History Last Taken Unknown] metoprolol succinate 50 mg tablet,extended release 24 hr 25 mg PO DAILY tab 09/13/20 [History Last Taken Unknown] nitroglycerin 0.4 mg sublingual tablet 0.4 mg SUBLINGUAL Q5M PRN 09/13/20 [History Last Taken Unknown] docusate sodium [Colace] 50 mg PO DAILY 10/21/20 [History Last Taken Unknown] ranolazine [Ranexa] 1,000 mg PO BID 10/21/20 [History Last Taken Unknown] Allergy/AdvReac Type Severity Reaction Status Date / Time latex Allergy Unknown unknown Verified 10/21/20 21:42 acetaminophen Allergy Anaphylaxis Verified 10/21/20 21:42 [From Darvocet-N] diphenhydramine Allergy Rash Verified 10/21/20 21:42 [From Benadryl] NSAIDS (Non-Steroidal Allergy Anaphylaxis Verified 10/21/20 21:42 Anti-Inflamma peas Allergy Rash Verified 10/21/20 21:42 Penicillins Allergy Anaphylaxis Verified 10/21/20 21:42 propoxyphene Allergy Anaphylaxis Verified 10/21/20 21:42 [From Darvocet-N] hydrocodone [From Vicodin] AdvReac Mild Nausea/Vom/ Verified 10/21/20 21:42 Diarrhea peppercorn AdvReac NEEDS Uncoded 10/21/20 21:42 FOLLOW-UP Family History Sister CVA (cerebral vascular accident) Heart disease Hypertension High cholesterol Diabetes Cancer lung cancer Father Arthritis Cancer myeloma Mother Arthritis Cancer Brain cancer Surgical History H/O coronary artery bypass surgery (01/28/12) History of angioplasty of peripheral vessel (01/2015) History of coronary artery stent placement (12/13/18) History of implantable cardiac defibrillator (ICD) (09/15/17) History of left heart catheterization (05/20/20) History of left inguinal hernia repair S/P femoral-tibial bypass (12/28/18) Social History Smoking Status: Current every day smoker tobacco type: cigarettes Tobacco: How many years used: 40 quit status: considering quitting alcohol intake: never substance use type: does not use caffeine: Yes (cola) Type: carbonated beverages Number of servings: 5 ROS Constitutional Constitutional: Denies chills, fatigue or fever(s) Eyes Eyes: Denies blurry vision ENT HEENT: Denies abnormal hearing or dysphagia Cardiovascular Cardiovascular: Reports chest pain Respiratory/Chest Respiratory/Chest: Denies cough or shortness of breath at rest Gastrointestinal Gastrointestinal: Denies abdominal pain Genitourinary Genitourinary: Denies dysuria Musculoskeletal Musculoskeletal: Denies back pain Integumentary Integumentary: Denies dry skin Neurologic Neurologic: Reports focal weakness; Denies abnormal gait Psychiatric Psychiatric: Denies depression Vital Signs Vital Signs Vital Signs: 10/21/20 21:37 10/21/20 22:10 10/21/20 22:20 Temperature 96.7 F L Temperature Source Temporal Pulse Rate 107 H Respiratory Rate 19 H Blood Pressure 142/87 H Blood Pressure Mean 105 Blood Pressure Position Blood Pressure Location Pulse Ox 94 93 95 Oxygen Delivery Method Room Air Nasal Cannula Nasal Cannula Oxygen Flow Rate (L/min) 2 2 10/21/20 23:26 10/22/20 00:40 10/22/20 00:50 Temperature 98.2 F Temperature Source Temporal Pulse Rate 94 88 74 Respiratory Rate 17 17 21 H Blood Pressure 141/83 H 127/84 H 132/82 H Blood Pressure Mean 102 98 98 Blood Pressure Position Blood Pressure Location Pulse Ox 95 93 94 Oxygen Delivery Method Nasal Cannula Nasal Cannula Nasal Cannula Oxygen Flow Rate (L/min) 2 2 10/22/20 01:20 10/22/20 01:27 10/22/20 01:30 Temperature 97.4 F L 97.3 F L Temperature Source Temporal Temporal Pulse Rate 87 88 86 Respiratory Rate 17 18 Blood Pressure 150/94 H 151/88 H Blood Pressure Mean 112 109 Blood Pressure Position Blood Pressure Location Pulse Ox 94 94 Oxygen Delivery Method Nasal Cannula Oxygen Flow Rate (L/min) 2 2 10/22/20 01:44 10/22/20 01:52 Temperature 98.6 F Temperature Source Temporal Pulse Rate 91 74 Respiratory Rate 18 Blood Pressure 144/86 H 144/86 H Blood Pressure Mean 105 105 Blood Pressure Position Semi-Fowlers Blood Pressure Location Left Arm Pulse Ox 94 Oxygen Delivery Method Nasal Cannula Oxygen Flow Rate (L/min) 2 Weight Weight: 188 lb 4.396 oz Body Mass Index (BMI) 29.5 Physical Exam Const alert and oriented x3 General Appearance: cooperative HEENT head/scalp atraumatic Eyes PERRL Neck supple Lymph Lymphatic: no lymphedema noted Resp normal respiratory effort, normal air movement and clear to auscultation bilaterally Cardio regular rate, regular rhythm, S1 normal heart sound and S2 normal heart sound GI normal to inspection, nondistended, normoactive bowel sounds Extremity no clubbing, cyanosis or edema Skin General Skin Exam: turgor normal Neuro Neuro Narrative: left facial droop, unable to maintain left leg elevated for more than 2 seconds Psych affect normal Results Lab / Micro Data Result Diagrams: 10/21/20 21:43 10/21/20 21:43 Labs: Laboratory Results - last 24 hr 10/21/20 21:43: WBC 7.7, RBC 5.01, Hgb 15.4, Hct 46.6, MCV 93.0, MCH 30.7, MCHC 33.0, RDW Std Deviation 53.1 H, RDW Coeff of Jack 15.6 H, Plt Count 269, MPV 10.6, Immature Gran % (Auto) 0.800, Neut % (Auto) 60.4, Lymph % (Auto) 28.1, Motley % (Auto) 5.8, Eos % (Auto) 3.5, Baso % (Auto) 1.4 H, Absolute Neuts (auto) 4.6, Absolute Lymphs (auto) 2.15, Nucleated RBC % 0 10/21/20 21:43: Sodium 139, Potassium 3.4 L, Chloride 109 H, Carbon Dioxide 24.0, Anion Gap 6, BUN 24 H, Creatinine 1.40 H, Estim Creat Clear Calc 53.77, Est GFR (MDRD) Af Amer 67, Est GFR (MDRD) Non-Af 55 L, BUN/Creatinine Ratio 17.1, Glucose 163 H, Calcium 9.2, Troponin I High Sens 29 10/22/20 00:02: Troponin I High Sens 158 H* 10/22/20 01:10: PT 16.7 H, INR 1.4, APTT 39.8 H Micro: Microbiology 10/21/20 22:25 Nasal Secretion SARS-CoV-2 Antigen (Rapid) - Final Radiology Impression Chest X-Ray 10/21/20 22:13 IMPRESSION: Normal x-ray examination of the chest. Electronically Signed: Ranjit Paz DO at 22:31 EDT Tel , Service support , Brain CT 10/22/20 00:50 IMPRESSION: Chronic involutional changes of the brain. No significant change from recent prior N.B. : The above Results were Read Back by Ranjit Paz DO to Dr. Bre MD, and understanding confirmed on 10/22/2020 01:07:01 (ET). Electronically Signed: Ranjit Paz DO at 1:08 EDT Tel , Service support , Head/Neck CTA 10/22/20 00:52 IMPRESSION: Normal CTA Head and neck with contrast. N.B. : The above Results were Read Back by Ranjit Paz DO to Dr. Bre MD, and understanding confirmed on 10/22/2020 01:25:52 (ET). Electronically Signed: Ranjit Paz DO at 1:26 EDT Tel , Service support , ADDENDUM: 10/22/20 0133 IMPRESSION: Normal CTA Head and neck with contrast. N.B. : The above Results were Read Back by Ranjit Paz DO to Dr. Bre MD, and understanding confirmed on 10/22/2020 01:25:52 (ET). Electronically Signed: Ranjit Paz DO at 1:26 EDT Tel , Service support , Chest CTA 10/22/20 00:53 IMPRESSION: Normal CTA chest examination, without a demonstrated pulmonary embolism or arterial dissection. Lungs are clear. Atherosclerotic disease of the thoracic aorta however, no evidence of dissection or aneurysm. Electronically Signed: Ranjit Paz DO at 1:29 EDT Tel , Service support , Assessment & Plan Assessment/Plan (1) PAF (paroxysmal atrial fibrillation): (2) Atherosclerosis of coronary artery bypass graft of [place] heart with angina pectoris: (3) Ischemic cardiomyopathy: (4) Essential (primary) hypertension: (5) HLD (hyperlipidemia): QUALIFIERS: Hyperlipidemia type: unspecified Qualified Code(s): E78.5 - Hyperlipidemia, unspecified (6) COPD (chronic obstructive pulmonary disease): QUALIFIERS: COPD type: unspecified COPD (7) Nicotine dependence: (8) LETTY (obstructive sleep apnea): (9) Smoking greater than 40 pack years: PLAN: Plan 1. Chest pain?admit patient to progressive care unit, cycle troponins, morphine, oxygen, nitroglycerin as needed for pain. Consult Dr. Albert for further management in the a.m. 2. Left side facial droop with left-sided weakness?will initiate heparin, decision was made not to use TPA in the emergency room will add neurologic checks per routine 3. DVT prophylaxis?patient has been on Eliquis and will be heparinized 4. Smoking history?cessation encouraged 5. COPD?continue routine medications 6. Hyperlipidemia?continue statin 7. Hypertension?continue routine home medications Charges/Coding Visit Charges Inpatient E&M: 09561 Init Hosp L3
--- NOTE | 2020-10-22 02:22 | EKG12_ITS ---
Test Reason : Blood Pressure : / mmHG Vent. Rate : 078 BPM Atrial Rate : 078 BPM P-R Int : 176 ms QRS Dur : 142 ms QT Int : 436 ms P-R-T Axes : 035 110 072 degrees QTc Int : 497 ms Sinus rhythm with sinus arrhythmia with occasional Premature ventricular complexes Right bundle branch block Anterolateral infarct , age undetermined Abnormal ECG Confirmed by RADHA SMART, ALISON ([id number]), editor continuity and script MARILUZ PAGE ([id number]) on 10/23/2020 9:28:31 AM Referred By: GRECIA Confirmed By:ALISON GARCIA MD
[2020-10-22] MEDS: Morphine 4 MG/ML Syringe IV ×3 (03:24→12:22)
[2020-10-22 03:49] LABS: Absolute Lymphocyte Count 2.22 X10^3/uL (0.83-4.51); Absolute Neutrophil Count 3.5 X10^3/uL (2.0-7.7); Basophil# 0.12 X10^3/uL; Basophil% 1.8 % (0-1); Eosinophil# 0.29 X10^3/uL; Eosinophils% 4.4 % (0-5); Hematocrit 46.2 % (40-54); Lymphocyte # 2.22 X10^3/ul (0.83-4.51); Mean Corp Hgb Conc 32.5 g/dL (32-36); Mean Corpuscular Hgb 30.7 pg (27.0-32.0); Mean Corpuscular Volume 94.7 fL (80-94); Mean Platelet Vol. 10.3 fl (6.2-12.0); Monocyte# 0.35 X10^3/uL; Monocyte% 5.4 % (0-10); NRBC Flagged by Analyzer 0 % (0-5); Neutrophil # 3.52 X10^3/uL (2.7-7.7); Neutrophil % 53.9 % (47-70); Platelet Count 259 K/mm3 (150-450); RBC Distribution Width CV 15.7 % (11.6-14.6); RBC Distribution Width SD 55.3 fl (35.1-43.9); Red Blood Count 4.88 M/mm3 (4.6-6.2); White Blood Count 6.5 K/mm3 (4.4-11.0)
--- NOTE | 2020-10-22 03:58 | PCS.PANDOC ---
PANDEMIC DOCUMENTATION INITIATED: Date: 09/30/2020 Time: 190
[2020-10-22 04:01] LABS: Anion Gap 6 (5-15); BUN 24 mg/dL (7-18); BUN/Creat Ratio 19.5 RATIO (10-20); Calcium,Total 8.3 mg/dL (8.5-10.1); Chloride 108 mmol/L (98-107); Creatinine, Serum 1.23 mg/dL (0.70-1.30); EST Glomerular Filtration Rate 64 mL/min (>60); Est Glom Filt Rate - Afr Amer 78 mL/min (>60); Glucose 116 mg/dL (74-106); Phosphorus 3.9 mg/dL (2.5-4.9); Potassium 3.7 mmol/L (3.5-5.1); Sodium Level 139 mmol/L (136-145)
[2020-10-22 04:02] LABS: Troponin-I HS 531 pg/mL (3.0-78.0)
[2020-10-22 04:04] LABS: International Normalized Ratio 1.3; Prothrombin Time (Protime)PT. 15.8 SECONDS (11.7-14.9)
[2020-10-22 06:16] LABS: Bedside Glucose 111 mg/dL (70-110)
[2020-10-22 08:08] LABS: Troponin-I HS 531 pg/mL (3.0-78.0)
--- NOTE | 2020-10-22 08:11 | EKG12_ITS ---
Test Reason : CP ADMIT Blood Pressure : / mmHG Vent. Rate : 083 BPM Atrial Rate : 083 BPM P-R Int : 176 ms QRS Dur : 146 ms QT Int : 432 ms P-R-T Axes : 034 109 069 degrees QTc Int : 507 ms Normal sinus rhythm Right bundle branch block Anterolateral infarct , age undetermined Abnormal ECG Confirmed by RADHA SMART, ALISON ([id number]), editor greeting card MARILUZ PAGE ([id number]) on 10/23/2020 9:29:11 AM Referred By: DR CABALLERO Confirmed By:ALISON GARCIA MD
[2020-10-22] MEDS: 0.9% Saline Lock 10 ML Syringe IV ×2 (08:40→12:21)
[2020-10-22] MEDS: Morphine 2 MG/ML Syringe IV (08:40)
--- NOTE | 2020-10-22 10:04 | PCM.HOSP.N ---
Hospitalist Note Mr. Mirza is a 60-year-old very medically complex male who is familiar to me from previous admissions who presented to the emergency department with chest pain and developed left facial droop. He has intermittent left facial droop from previous stroke although did have new right-sided infarcts affecting the left side at his previous admission on 10/08/2020. He was seen by [facility] neurology at that time and work-up was completed. They had no further medical intervention to offer as he is fully anticoagulated with Eliquis, on Plavix, and on aspirin. 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 He presented yesterday with chest pain and again developed recurrent left-sided facial droop. His troponin has elevated and cardiology has therefore been consulted. It was recommended that we avoid a nitro drip if possible to maximize cerebral perfusion given his neurological symptoms. He has had intermittent ongoing chest pain. His troponin has stabilized. His EKG shows no changes consistent with acute ischemia. The patient has a significant history for coronary artery disease, however, and I suspect cardiology will want to perform a cardiac catheterization on him or recommend transfer to a tertiary center secondary to his complexity. Repeat CT in the a.m., as patient has a pacemaker and is unable to have an MRI, to reevaluate for new stroke. On exam I do somewhat question his effort with his extremity strength. Patient admits he has missed a few doses of his medications here and there, with the most recent being yesterday. We will continue his Plavix and aspirin for now but he is currently on enoxaparin twice daily until he is evaluated by cardiology. He is not quite sure when his last dose of Eliquis was but I suspect he did take at least 1 dose yesterday based on our conversation. Diagnoses: Chest pain Left-sided facial droop with left upper and lower extremity weakness History of stroke CAD Hypertension PAF Ischemic cardiomyopathy Hyperlipidemia Abdominal aortic aneurysm PVD COPD LETTY Lung nodule
[2020-10-22] MEDS: Docusate Sodium 100 MG/10 ML UDC 50 MG PO (11:02)
[2020-10-22] MEDS: Gabapentin 600 MG Tablet PO ×2 (11:03→14:08)
[2020-10-22] MEDS: Pantoprazole Sodium 40 MG Tablet PO (11:03)
[2020-10-22] MEDS: Magnesium Chloride 64 MG Delay Rel.Tablet 128 MG PO (11:03)
[2020-10-22] MEDS: Clopidogrel Bisulfate 75 MG Tablet PO (11:03)
[2020-10-22] MEDS: Ranolazine 500 MG Tablet 1000 MG PO (11:04)
[2020-10-22] MEDS: Fenofibrate 145 MG Tablet PO (11:04)
[2020-10-22] MEDS: Furosemide 40 MG Tablet PO (11:04)
[2020-10-22] MEDS: Metoprolol(XL)Succ 25 MG Tablet PO (11:04)
--- NOTE | 2020-10-22 11:15 | CASEMGMT ---
According to the [facility] website, the following are in-network tertiary facilities: [facility], [place], [facility], [facility], [facility], [facility], and . Stephen SALMERON CM
[2020-10-22] MEDS: Empagliflozin 10 MG Tablet PO (11:17)
[2020-10-22] MEDS: Enoxaparin 80 MG/0.8 ML Syringe SC (11:18)
--- NOTE | 2020-10-22 11:19 | PCM.CONS.C ---
Assessment & Plan Assessment/Plan (1) History of non-ST elevation myocardial infarction (NSTEMI): PLAN: This patient seen and evaluated today at bedside along with the nursing staff Had extensive cardiac history and presenting with retrosternal chest pain with some radiation to the left arm. Last cardiac catheterization was done here in August 09, 2020 where he had PTCA of long segment of LAD stent using balloon angioplasty He had occluded graft with arthritic LEHMAN to LAD and occluded vein graft and had a stent in the LAD as well as the left circumflex Right: There is occluded proximally with [id number] collaterals An ejection fraction has been in the range of 25% had ICD device no valvular abnormality noted. And no pericardial effusion on the echocardiogram. This presentation he has elevated cardiac biomarkers with elevated high sensitive troponin I and has been on treatment with the dual antiplatelet in addition to Lovenox. Patient has additional other medical problems with a prior history of CVA CT scan is negative MRI cannot be performed due to the history of ICD device. Patient had a history of hypertension, hyperlipidemia, peripheral vascular disease Cardiac recommendation and plan; 1. We will repeat high sensitive troponins 2. We will continue treatment for non-ST elevation TN 3. Recommend to transfer him to a tertiary cardiac facility due to the complexity of his coronary atherosclerosis with a long segment in the LAD and a stented left circumflex occluded graft and occluded RCA with arthritic LEHMAN to LAD. I discussed the cardiac care plan with the patient and nursing staff and will proceed with transfer plan. (2) Ischemic cardiomyopathy: (3) Essential (primary) hypertension: (4) HLD (hyperlipidemia): QUALIFIERS: Hyperlipidemia type: unspecified Qualified Code(s): E78.5 - Hyperlipidemia, unspecified (5) Nicotine dependence: (6) COPD (chronic obstructive pulmonary disease): QUALIFIERS: COPD type: unspecified COPD (7) LETTY (obstructive sleep apnea): HPI Consult Data Date of Consult: 10/22/20 HPI Narrative Reason for Consultation: Patient with extensive cardiac history/NSTEMI HPI Narrative: SALAZAR HOLT, is a 60 M who presents [facility] Medical History Abdominal aortic aneurysm (AAA) Abnormal PFT Anxiety Atherosclerosis of coronary artery bypass graft of [place] heart with angina pectoris Chronic HFrEF (heart failure with reduced ejection fraction) COPD (chronic obstructive pulmonary disease) CVA (cerebral vascular accident) Depression Depression with anxiety Descending aortic aneurysm Esophageal stricture Essential (primary) hypertension GERD (gastroesophageal reflux disease) GERD (gastroesophageal reflux disease) History of CVA (cerebrovascular accident) History of non-ST elevation myocardial infarction (NSTEMI) (08/09/20) HLD (hyperlipidemia) Hypersomnia Hypomagnesemia syndrome Ischemic cardiomyopathy Left lower lobe pulmonary nodule Neuropathic pain Nicotine dependence LETTY (obstructive sleep apnea) Osteoporosis PAF (paroxysmal atrial fibrillation) Peripheral vascular occlusive disease Rheumatoid arthritis Stroke TIA (transient ischemic attack) Home Medications magnesium oxide 400 mg PO DAILY 11/07/18 [History Last Taken 04/20/20] pantoprazole 40 mg tablet,delayed release 40 mg PO BID 11/15/18 [History Last Taken 05/20/20] albuterol sulfate 0.63 mg/3 mL solution for nebulization 0.63 mg INHALATION Q4H PRN #270 ml 07/12/19 [Rx Last Taken 05/20/20] amitriptyline 25 mg tablet 25 mg PO QHS 08/17/19 [History Last Taken 04/20/20] atorvastatin 80 mg PO QHS 02/15/20 [History Last Taken 04/20/20] alendronate 70 mg tablet 70 mg PO QWEEK tablet 03/15/20 [History Last Taken 04/15/20] gabapentin 600 mg tablet 600 mg PO 4X/DAY tablet 03/15/20 [History Last Taken 05/20/20] apixaban 5 mg tablet 5 mg PO BID 09/13/20 [History Last Taken Unknown] clopidogrel 75 mg tablet 75 mg PO DAILY 09/13/20 [History Last Taken Unknown] empagliflozin 10 mg tablet 10 mg PO DAILY 09/13/20 [History Last Taken Unknown] fenofibrate nanocrystallized 145 mg tablet 145 mg PO DAILY 09/13/20 [History Last Taken Unknown] furosemide 40 mg tablet 40 mg PO DAILY tab 09/13/20 [History Last Taken Unknown] metoprolol succinate 50 mg tablet,extended release 24 hr 25 mg PO DAILY tab 09/13/20 [History Last Taken Unknown] nitroglycerin 0.4 mg sublingual tablet 0.4 mg SUBLINGUAL Q5M PRN 09/13/20 [History Last Taken Unknown] docusate sodium [Colace] 50 mg PO DAILY 10/21/20 [History Last Taken Unknown] ranolazine [Ranexa] 1,000 mg PO BID 10/21/20 [History Last Taken Unknown] aspirin 81 mg PO DAILY 10/22/20 [History Last Taken Unknown] Allergy/AdvReac Type Severity Reaction Status Date / Time latex Allergy Unknown unknown Verified 10/21/20 21:42 acetaminophen Allergy Anaphylaxis Verified 10/21/20 21:42 [From Darvocet-N] diphenhydramine Allergy Rash Verified 10/21/20 21:42 [From Benadryl] NSAIDS (Non-Steroidal Allergy Anaphylaxis Verified 10/21/20 21:42 Anti-Inflamma peas Allergy Rash Verified 10/21/20 21:42 Penicillins Allergy Anaphylaxis Verified 10/21/20 21:42 propoxyphene Allergy Anaphylaxis Verified 10/21/20 21:42 [From Darvocet-N] hydrocodone [From Vicodin] AdvReac Mild Nausea/Vom/ Verified 10/21/20 21:42 Diarrhea peppercorn AdvReac NEEDS Uncoded 10/21/20 21:42 FOLLOW-UP Family History Sister CVA (cerebral vascular accident) Heart disease Hypertension High cholesterol Diabetes Cancer lung cancer Father Arthritis Cancer myeloma Mother Arthritis Cancer Brain cancer Surgical History H/O coronary artery bypass surgery (01/28/12) History of angioplasty of peripheral vessel (01/2015) History of coronary artery stent placement (12/13/18) History of implantable cardiac defibrillator (ICD) (09/15/17) History of left heart catheterization (05/20/20) History of left inguinal hernia repair S/P femoral-tibial bypass (12/28/18) Social History household members: significant other Smoking Status: Current every day smoker tobacco type: cigarettes Tobacco: How many years used: 40 quit status: considering quitting alcohol intake: never substance use type: does not use caffeine: Yes (cola) Type: carbonated beverages Number of servings: 5 Physical Exam Narrative Patient's evaluated at bedside along with the nursing staff Patient is having retrosternal chest pain radiating to the left arm Cardiovascular examination; Blood pressure 130/90 mmHg clinical research monitor showed underlying normal sinus Cardiac exam S1-S2 is regular, there is no murmur no systolic or diastolic murmur, no gallop rhythm and no pericardial rub. Chest examination; Clear to auscultation bilaterally Examination abdomen soft, no palpable mass Examination lower extremity no lower extremity edema no cyanosis or clubbing. Central nervous system exam no focal neurological deficit noted. Objective Data Vital Signs: Vital Signs Temp Pulse Resp BP Pulse Ox 97.8 F 85 15 130/91 H 96 10/22/20 10:56 10/22/20 11:04 10/22/20 10:56 10/22/20 11:04 10/22/20 10:56 Oxygen Flow Rate (L/min) 2 Oxygen Delivery Method Nasal Cannula Weight: 187 lb 9.814 oz Body Mass Index (BMI) 29.3 Intake & Output: Intake and Output for Last 24 Hours 10/20/20 10/21/20 10/22/20 23:59 23:59 23:59 Intake Total 220.65 / 220.65 Output Total 500 / 500 Balance -279.35 / -279.35 Lab / Micro Data Result Diagrams: 10/22/20 03:36 10/22/20 03:36 Labs: Laboratory Results - last 24 hr 10/21/20 21:43: WBC 7.7, RBC 5.01, Hgb 15.4, Hct 46.6, MCV 93.0, MCH 30.7, MCHC 33.0, RDW Std Deviation 53.1 H, RDW Coeff of Jack 15.6 H, Plt Count 269, MPV 10.6, Immature Gran % (Auto) 0.800, Neut % (Auto) 60.4, Lymph % (Auto) 28.1, Randall % (Auto) 5.8, Eos % (Auto) 3.5, Baso % (Auto) 1.4 H, Absolute Neuts (auto) 4.6, Absolute Lymphs (auto) 2.15, Nucleated RBC % 0 10/21/20 21:43: Sodium 139, Potassium 3.4 L, Chloride 109 H, Carbon Dioxide 24.0, Anion Gap 6, BUN 24 H, Creatinine 1.40 H, Estim Creat Clear Calc 53.77, Est GFR (MDRD) Af Amer 67, Est GFR (MDRD) Non-Af 55 L, BUN/Creatinine Ratio 17.1, Glucose 163 H, Calcium 9.2, Troponin I High Sens 29 10/22/20 00:02: Troponin I High Sens 158 H* 10/22/20 01:10: PT 16.7 H, INR 1.4, APTT 39.8 H 10/22/20 03:36: Troponin I High Sens 531 H* 10/22/20 03:36: WBC 6.5, RBC 4.88, Hgb 15.0, Hct 46.2, MCV 94.7 H, MCH 30.7, MCHC 32.5, RDW Std Deviation 55.3 H, RDW Coeff of Jack 15.7 H, Plt Count 259, MPV 10.3, Immature Gran % (Auto) 0.500, Neut % (Auto) 53.9, Lymph % (Auto) 34.0, Randall % (Auto) 5.4, Eos % (Auto) 4.4, Baso % (Auto) 1.8 H, Absolute Neuts (auto) 3.5, Absolute Lymphs (auto) 2.22, Nucleated RBC % 0 10/22/20 03:36: PT 15.8 H, INR 1.3 10/22/20 03:36: Sodium 139, Potassium 3.7, Chloride 108 H, Carbon Dioxide 25.0, Anion Gap 6, BUN 24 H, Creatinine 1.23, Estim Creat Clear Calc 61.20, Est GFR (MDRD) Af Amer 78, Est GFR (MDRD) Non-Af 64, BUN/Creatinine Ratio 19.5, Glucose 116 H, Calcium 8.3 L, Phosphorus 3.9, Magnesium 2.0 10/22/20 06:08: POC Glucose 111 H 10/22/20 07:16: Troponin I High Sens 531 H* Micro: Microbiology 10/21/20 22:25 Nasal Secretion SARS-CoV-2 Antigen (Rapid) - Final Cardiology Labs/Tests 10/21/20 21:43: WBC 7.7, RBC 5.01, Hgb 15.4, Hct 46.6, MCV 93.0, MCH 30.7, MCHC 33.0, Plt Count 269, MPV 10.6, Immature Gran % (Auto) 0.800, Neut % (Auto) 60.4, Lymph % (Auto) 28.1, Randall % (Auto) 5.8, Eos % (Auto) 3.5, Baso % (Auto) 1.4 H, Absolute Neuts (auto) 4.6, Nucleated RBC % 0 10/21/20 21:43: Sodium 139, Potassium 3.4 L, Chloride 109 H, Carbon Dioxide 24.0, Anion Gap 6, BUN 24 H, Creatinine 1.40 H, Est GFR (MDRD) Af Amer 67, Est GFR (MDRD) Non-Af 55 L, BUN/Creatinine Ratio 17.1, Glucose 163 H, Calcium 9.2 10/22/20 01:10: PT 16.7 H, INR 1.4, APTT 39.8 H 10/22/20 03:36: WBC 6.5, RBC 4.88, Hgb 15.0, Hct 46.2, MCV 94.7 H, MCH 30.7, MCHC 32.5, Plt Count 259, MPV 10.3, Immature Gran % (Auto) 0.500, Neut % (Auto) 53.9, Lymph % (Auto) 34.0, Randall % (Auto) 5.4, Eos % (Auto) 4.4, Baso % (Auto) 1.8 H, Absolute Neuts (auto) 3.5, Nucleated RBC % 0 10/22/20 03:36: PT 15.8 H, INR 1.3 10/22/20 03:36: Sodium 139, Potassium 3.7, Chloride 108 H, Carbon Dioxide 25.0, Anion Gap 6, BUN 24 H, Creatinine 1.23, Est GFR (MDRD) Af Amer 78, Est GFR (MDRD) Non-Af 64, BUN/Creatinine Ratio 19.5, Glucose 116 H, Calcium 8.3 L, Phosphorus 3.9, Magnesium 2.0 Rhythm: Normal sinus rhythm. EKG: Normal sinus rhythm with right bundle branch block Radiography Diagnostic Testing: Radiology Impression Chest X-Ray 10/21/20 22:13 IMPRESSION: Normal x-ray examination of the chest. Electronically Signed: Ranjit Paz DO at 22:31 EDT Tel , Service support , Brain CT 10/22/20 00:50 IMPRESSION: Chronic involutional changes of the brain. No significant change from recent prior N.B. : The above Results were Read Back by Ranjit Paz DO to Dr. Bre MD, and understanding confirmed on 10/22/2020 01:07:01 (ET). Electronically Signed: Ranjit Paz DO at 1:08 EDT Tel , Service support , Head/Neck CTA 10/22/20 00:52 IMPRESSION: Normal CTA Head and neck with contrast. N.B. : The above Results were Read Back by Ranjit Paz DO to Dr. Bre MD, and understanding confirmed on 10/22/2020 01:25:52 (ET). Electronically Signed: Ranjit Paz DO at 1:26 EDT Tel , Service support , ADDENDUM: 10/22/20 0133 IMPRESSION: Normal CTA Head and neck with contrast. N.B. : The above Results were Read Back by Ranjit Paz DO to Dr. Bre MD, and understanding confirmed on 10/22/2020 01:25:52 (ET). Electronically Signed: Ranjit Paz DO at 1:26 EDT Tel , Service support , Chest CTA 10/22/20 00:53 IMPRESSION: Normal CTA chest examination, without a demonstrated pulmonary embolism or arterial dissection. Lungs are clear. Atherosclerotic disease of the thoracic aorta however, no evidence of dissection or aneurysm. Electronically Signed: Ranjit Paz DO at 1:29 EDT Tel , Service support ,
[2020-10-22 11:53] LABS: Troponin-I HS 472 pg/mL (3.0-78.0)
[2020-10-22 12:05] LABS: Bedside Glucose 87 mg/dL (70-110)
--- NOTE | 2020-10-22 12:47 | DS.PCM_ITS ---
Providers Date of Admission: 10/22/20 Primary Care Physician: Dr. Oral Manuel MD Consultations 10/22/20 07:03 Consult: Cardiology Routine Consulting Provider: Kadeem Chapa Reason for Consult: Chest pain EMERGENT Consult: No MD Notified: Yes Date Notified: 10/22/20 Time Notified: 07:41 Method of Notification: Text Reason For Visit: CHEST PAIN, LEFT FACIAL DROOP & LEG WEAKNESS Diagnosis Discharge Diagnosis (1) History of non-ST elevation myocardial infarction (NSTEMI): Status: Resolved Code(s): I25.2 - Old myocardial infarction (2) Ischemic cardiomyopathy: Status: Chronic Code(s): I25.5 - Ischemic cardiomyopathy (3) Essential (primary) hypertension: Status: Chronic Code(s): I10 - Essential (primary) hypertension (4) HLD (hyperlipidemia): Status: Chronic Code(s): E78.5 - Hyperlipidemia, unspecified Qualifiers: Hyperlipidemia type: unspecified Qualified Code(s): E78.5 - Hyperlipidemia, unspecified (5) Nicotine dependence: Status: Chronic Code(s): F17.200 - Nicotine dependence, unspecified, uncomplicated (6) COPD (chronic obstructive pulmonary disease): Status: Chronic Code(s): J44.9 - Chronic obstructive pulmonary disease, unspecified Qualifiers: COPD type: unspecified COPD (7) LETTY (obstructive sleep apnea): Status: Chronic Code(s): G47.33 - Obstructive sleep apnea (adult) (pediatric) Medications at Discharge Home Medications magnesium oxide 400 mg PO DAILY 11/07/18 pantoprazole 40 mg tablet,delayed release 40 mg PO BID 11/15/18 albuterol sulfate 0.63 mg/3 mL solution for nebulization 0.63 mg INHALATION Q4H PRN #270 ml 07/12/19 amitriptyline 25 mg tablet 25 mg PO QHS 08/17/19 atorvastatin 80 mg PO QHS 02/15/20 alendronate 70 mg tablet 70 mg PO QWEEK tablet 03/15/20 gabapentin 600 mg tablet 600 mg PO 4X/DAY tablet 03/15/20 apixaban 5 mg tablet 5 mg PO BID 09/13/20 clopidogrel 75 mg tablet 75 mg PO DAILY 09/13/20 empagliflozin 10 mg tablet 10 mg PO DAILY 09/13/20 fenofibrate nanocrystallized 145 mg tablet 145 mg PO DAILY 09/13/20 furosemide 40 mg tablet 40 mg PO DAILY tab 09/13/20 metoprolol succinate 50 mg tablet,extended release 24 hr 25 mg PO DAILY tab 09/13/20 nitroglycerin 0.4 mg sublingual tablet 0.4 mg SUBLINGUAL Q5M PRN 09/13/20 docusate sodium [Colace] 50 mg PO DAILY 10/21/20 ranolazine [Ranexa] 1,000 mg PO BID 10/21/20 aspirin 81 mg PO DAILY 10/22/20 Hospital Course Operations None Procedures None Summary of Care Provided Minutes Spent on Discharge: 45 Hospital Course: Mr. Chandler is a 60-year-old white male who presented to the emergency department [facility] on 10/22/2020 complaining of chest pain. Approximately 1 hour prior to arrival to the emergency department he developed chest pain that seem consistent with his past cardiac chest pain therefore he presented. He described the pain as heavy and was associated with a burning sensation that he fell all the way down his left arm. He reported he was significantly diaphoretic and short of breath when he was symptomatic. He had no exacerbating or relieving factors and initially had no other symptoms. While in the emergency department he developed left-sided facial droop and left- sided arm and leg weakness. Mr. Chandler has a past medical history of severe coronary artery disease that is complex for which he has had CABG and stenting, multiple strokes/TIA, COPD, hypertension, hyperlipidemia, descending aortic aneurysm, history of esophageal stricture, GERD, ischemic cardiomyopathy, LETTY, PAF, PVD, RA, neuropathic pain, and depression/anxiety. He had a hospital visit at [facility] in August secondary to stroke with concomitant aortic arch thrombus for which he was placed on Eliquis and remains on Plavix and aspirin at neurology's recommendation. He then presented here with strokelike symptoms including left-sided facial droop and left-sided weakness on 10/07/2020 for which she was admitted and work-up was completed. His aortic arch thrombus had resolved. His follow-up CT, since MRI cannot be performed secondary to pacer, showed a new MCA infarct. Telestroke consult was performed and recommended continuing current dual antiplatelet therapy with systemic anticoagulation via Eliquis and had no further recommendations at that time. He was discharged on 10/08 and then as noted above presented last evening with similar symptoms. Upon exam today his neurological symptoms are similar to what he suffered at the end of September and is documented in his [facility] documentation from his previous visit there as well. With regards to his chest pain his cardiac enzymes were cycled and were elevated. He was placed on therapeutic dose Lovenox and continued on dual antiplatelet therapy and his Eliquis was held. He was evaluated by cardiology and transfer to tertiary cardiac facility was recommended secondary to the complexity of his coronary atherosclerosis. Cardiology initiated the transfer to [facility]. The patient's baseline ejection fraction is 25% and he has an ICD. He will need follow-up with cardiology and stroke neurology at a tertiary facility. His EKG showed no findings consistent with acute ischemia but he has baseline abnormalities. Discharge diagnoses: NSTEMI Left-sided facial droop with left-sided upper and lower extremity weakness History of stroke CAD Hypertension PAF Ischemic cardiomyopathy Hyperlipidemia Abdominal aortic aneurysm PVD COPD LETTY Lung nodule Physical Exam Const alert, oriented x3 and no apparent distress Constitutional Narrative: Overweight white male sitting up in bed, nursing at bedside, appears nontoxic General Appearance: cooperative, comfortable and well developed Orientation / Consciousness: awake Nutritional Appearance: overweight HEENT normocephalic, head/scalp atraumatic, hearing grossly normal bilaterally, moist oral mucous membranes and oropharynx normal Mouth: oral and palatal mucosa normal Eyes PERRL, EOMs intact bilaterally and conjunctivae normal Neck no lymphadenopathy, supple, no JVD and no carotid bruits Neck Narrative: Trachea midline, no thyroid enlargement Resp normal respiratory effort, no retractions, no use of accessory muscles and clear to auscultation bilaterally Resp Narrative: Diffusely diminished but clear to auscultation no adventitious lung sounds Auscultation: Negative for crackles, rales, rhonchi or wheezes Cardio regular rate, regular rhythm, S1 normal heart sound, S2 normal heart sound, no murmurs, no rub, no gallops, no clicks and no JVD Cardio Narrative: Patient is without sternum, pacer in place left chest GI normal to inspection, nondistended, normoactive bowel sounds, soft to palpation, non-tender and non-distended Extremity no clubbing, cyanosis or edema Skin no rashes or lesions noted, no wounds, skin turgor normal and no jaundice Neuro oriented x3 Neuro Narrative: 3+ reflexes on left side, left-sided facial droop, left-sided pronator drift, left-sided lower extremity weakness-effort was questionable at times a.m., all other cranial nerves were intact Sensorium / Orientation: awake and alert Speech: speech normal Psych affect normal Weight / BMI Weight Weight: 85.1 kg Body Mass Index (BMI) 29.3 ABG / Lab / Microbiology Data Result Diagrams: 10/22/20 03:36 10/22/20 03:36 Laboratory: Laboratory Results - last 24 hr 10/21/20 21:43: WBC 7.7, RBC 5.01, Hgb 15.4, Hct 46.6, MCV 93.0, MCH 30.7, MCHC 33.0, RDW Std Deviation 53.1 H, RDW Coeff of Jack 15.6 H, Plt Count 269, MPV 10.6, Immature Gran % (Auto) 0.800, Neut % (Auto) 60.4, Lymph % (Auto) 28.1, [place] % (Auto) 5.8, Eos % (Auto) 3.5, Baso % (Auto) 1.4 H, Absolute Neuts (auto) 4.6, Absolute Lymphs (auto) 2.15, Nucleated RBC % 0 10/21/20 21:43: Sodium 139, Potassium 3.4 L, Chloride 109 H, Carbon Dioxide 24.0, Anion Gap 6, BUN 24 H, Creatinine 1.40 H, Estim Creat Clear Calc 53.77, Est GFR (MDRD) Af Amer 67, Est GFR (MDRD) Non-Af 55 L, BUN/Creatinine Ratio 17.1, Glucose 163 H, Calcium 9.2, Troponin I High Sens 29 10/22/20 00:02: Troponin I High Sens 158 H* 10/22/20 01:10: PT 16.7 H, INR 1.4, APTT 39.8 H 10/22/20 03:36: Troponin I High Sens 531 H* 10/22/20 03:36: WBC 6.5, RBC 4.88, Hgb 15.0, Hct 46.2, MCV 94.7 H, MCH 30.7, MCHC 32.5, RDW Std Deviation 55.3 H, RDW Coeff of Jack 15.7 H, Plt Count 259, MPV 10.3, Immature Gran % (Auto) 0.500, Neut % (Auto) 53.9, Lymph % (Auto) 34.0, [place] % (Auto) 5.4, Eos % (Auto) 4.4, Baso % (Auto) 1.8 H, Absolute Neuts (auto) 3.5, Absolute Lymphs (auto) 2.22, Nucleated RBC % 0 10/22/20 03:36: PT 15.8 H, INR 1.3 10/22/20 03:36: Sodium 139, Potassium 3.7, Chloride 108 H, Carbon Dioxide 25.0, Anion Gap 6, BUN 24 H, Creatinine 1.23, Estim Creat Clear Calc 61.20, Est GFR (MDRD) Af Amer 78, Est GFR (MDRD) Non-Af 64, BUN/Creatinine Ratio 19.5, Glucose 116 H, Calcium 8.3 L, Phosphorus 3.9, Magnesium 2.0 10/22/20 06:08: POC Glucose 111 H 10/22/20 07:16: Troponin I High Sens 531 H* 10/22/20 11:00: POC Glucose 87 10/22/20 11:24: Troponin I High Sens 472 H* Microbiology: Microbiology 10/21/20 22:25 Nasal Secretion SARS-CoV-2 Antigen (Rapid) - Final Radiography Diagnostic Testing: Radiology Impression Chest X-Ray 10/21/20 22:13 IMPRESSION: Normal x-ray examination of the chest. Electronically Signed: Ranjit Paz DO at 22:31 EDT Tel , Service support , Brain CT 10/22/20 00:50 IMPRESSION: Chronic involutional changes of the brain. No significant change from recent prior N.B. : The above Results were Read Back by Ranjit Paz DO to Dr. Bre MD, and understanding confirmed on 10/22/2020 01:07:01 (ET). Electronically Signed: Ranjit Paz DO at 1:08 EDT Tel , Service support , Head/Neck CTA 10/22/20 00:52 IMPRESSION: Normal CTA Head and neck with contrast. N.B. : The above Results were Read Back by Ranjit Paz DO to Dr. Bre MD, and understanding confirmed on 10/22/2020 01:25:52 (ET). Electronically Signed: Ranjit Paz DO at 1:26 EDT Tel , Service support , ADDENDUM: 10/22/20 0133 IMPRESSION: Normal CTA Head and neck with contrast. N.B. : The above Results were Read Back by Ranjit Paz DO to Dr. Bre MD, and understanding confirmed on 10/22/2020 01:25:52 (ET). Electronically Signed: Ranjit Paz DO at 1:26 EDT Tel , Service support , Chest CTA 10/22/20 00:53 IMPRESSION: Normal CTA chest examination, without a demonstrated pulmonary embolism or arterial dissection. Lungs are clear. Atherosclerotic disease of the thoracic aorta however, no evidence of dissection or aneurysm. Electronically Signed: Ranjit Paz DO at 1:29 EDT Tel , Service support , Meaningful Use Info Meaningful Use Diagnoses (Choose all that apply): None applicable Discharge Plan Admission Admit Date/Time: 10/22/20 02:30 Primary Reason for Your Visit: Chest pain and recurrent L Facial Droop and L sided weakness Attending Provider: Yara Wilkerson Primary Care Provider: Oral Manuel Consulting Providers: Kadeem Chapa Discharge Orders/Prescriptions Prescriptions: No Action pantoprazole 40 mg tablet,delayed release (DR/EC) 40 mg PO BID RF: 0 gabapentin 600 mg tablet 600 mg PO 4X/DAY RF: 0 albuterol sulfate 0.63 mg/3 mL solution for nebulization 0.63 mg INHALATION Q4H PRN (Reason: shortness of breath or wheezing) Qty: 270 RF: 4 amitriptyline 25 mg tablet 25 mg PO QHS RF: 0 alendronate 70 mg tablet 70 mg PO QWEEK RF: 0 apixaban 5 mg tablet 5 mg PO BID RF: 0 clopidogrel 75 mg tablet 75 mg PO DAILY RF: 0 Jardiance 10 mg tablet 10 mg PO DAILY RF: 0 fenofibrate nanocrystallized 145 mg tablet 145 mg PO DAILY RF: 0 nitroglycerin 0.4 mg tablet, sublingual 0.4 mg sublingual Q5M PRN (Reason: Pain) RF: 0 magnesium oxide 400 MG tablet 400 mg PO DAILY RF: 0 furosemide 40 mg tablet 40 mg PO DAILY RF: 0 atorvastatin 80 MG tablet 80 mg PO QHS RF: 0 metoprolol succinate 50 mg tablet extended release 24 hr 25 mg PO DAILY RF: 0 ranolazine [Ranexa] 1,000 mg tablet extended release 12 hr 1,000 mg PO BID RF: 0 Colace 50 mg Capsule 50 mg PO DAILY RF: 0 aspirin 81 mg Tablet 81 mg PO DAILY RF: 0 Referrals / Follow Up: Oral Manuel MD [Primary Care Provider] - Disposition Disposition (needs filled in before D/C Order can be placed): Acute Care Hospital Charges/Coding Visit Charges Inpatient E&M: 13638 Disch Hosp
--- NOTE | 2020-10-22 13:21 | NURSING ---
report called to Doreen French Rn at [email or web address] [phone]
--- NOTE | 2020-10-22 13:40 | PHA.DC.MR ---
Pharmacy Service has performed discharge medication reconciliation for this patient. The patient's discharge medication list was reviewed for discrepancies and discrepancies were resolved. Home Medications magnesium oxide 400 mg PO DAILY 11/07/18 pantoprazole 40 mg tablet,delayed release 40 mg PO BID 11/15/18 albuterol sulfate 0.63 mg/3 mL solution for nebulization 0.63 mg INHALATION Q4H PRN #270 ml 07/12/19 amitriptyline 25 mg tablet 25 mg PO QHS 08/17/19 atorvastatin 80 mg PO QHS 02/15/20 alendronate 70 mg tablet 70 mg PO QWEEK tablet 03/15/20 gabapentin 600 mg tablet 600 mg PO 4X/DAY tablet 03/15/20 apixaban 5 mg tablet 5 mg PO BID 09/13/20 clopidogrel 75 mg tablet 75 mg PO DAILY 09/13/20 empagliflozin 10 mg tablet 10 mg PO DAILY 09/13/20 fenofibrate nanocrystallized 145 mg tablet 145 mg PO DAILY 09/13/20 furosemide 40 mg tablet 40 mg PO DAILY tab 09/13/20 metoprolol succinate 50 mg tablet,extended release 24 hr 25 mg PO DAILY tab 09/13/20 nitroglycerin 0.4 mg sublingual tablet 0.4 mg SUBLINGUAL Q5M PRN 09/13/20 docusate sodium [Colace] 50 mg PO DAILY 10/21/20 ranolazine [Ranexa] 1,000 mg PO BID 10/21/20 aspirin 81 mg PO DAILY 10/22/20
--- NOTE | 2020-10-22 16:48 | NURSING ---
report called to nurse Ally and micro lab analyst patient to be brought to micro lab analyst
--- NOTE | 2020-10-22 16:54 | NURSING ---
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
== END 2020-10-22 16:50 | disposition short-term general hospital (02) | DRG 281 ==
LOC: ED 10-22 00:48 → PCU 10-22 02:34
PROVIDERS: Internal Medicine Interventional Cardiology; Admitting Provider Family Medicine; Emergency Provider Emergency Medicine; PCP Family Medicine; Visit Provider Internal Medicine
DX: I21.4 Non-ST elevation (NSTEMI) myocardial infarction (principal); I50.22 Chronic systolic (congestive) heart failure; I25.810 Atherosclerosis of coronary artery bypass graft(s) without angina pectoris; R91.8 Other nonspecific abnormal finding of lung field; E78.00 Pure hypercholesterolemia, unspecified; E78.5 Hyperlipidemia, unspecified; I69.392 Facial weakness following cerebral infarction; I69.344 Monoplegia of lower limb following cerebral infarction affecting left non-dominant side; F41.8 Other specified anxiety disorders; I48.0 Paroxysmal atrial fibrillation; I71.4 Abdominal aortic aneurysm, without rupture; J44.9 Chronic obstructive pulmonary disease, unspecified; K21.9 Gastro-esophageal reflux disease without esophagitis; I73.9 Peripheral vascular disease, unspecified; M06.9 Rheumatoid arthritis, unspecified; M81.0 Age-related osteoporosis without current pathological fracture; I11.0 Hypertensive heart disease with heart failure; G47.33 Obstructive sleep apnea (adult) (pediatric); I25.2 Old myocardial infarction; I25.5 Ischemic cardiomyopathy; Z79.01 Long term (current) use of anticoagulants; Z79.82 Long term (current) use of aspirin; Z79.899 Other long term (current) drug therapy; F17.210 Nicotine dependence, cigarettes, uncomplicated
CPT/HCPCS: 36415; 70450; 70496; 70498; 71045; 71275; 80048; 82962; 83735; 84100; 84484; 85025; 85610; 85730; 87426; 93005; 97162; 97165; 97802; 99285; Q9967; A4216

== ENCOUNTER → 2020-12-13 19:32 | Outpatient (CLI) | payer MEDICARE, SELFPAY ==
[2018-12-13 11:07] VITALS: BMI 26.3
--- NOTE | 2020-12-13 19:44 | RAD_ITS ---
STUDY: X-RAY - RIGHT SHOULDER REASON FOR EXAM: Male, 60 years old. PAIN TECHNIQUE: 4 view(s) of the shoulder. COMPARISON: None. FINDINGS: Normal glenohumeral articulation. Normal acromioclavicular joint. Normal acromion. Cardiac conduction device partially visualized. Normal humeral head and visualized proximal humerus. The soft tissue structures are unremarkable. Normal visualized pulmonary apex. RAD/Shoulder min 2 Views IMPRESSION: Normal x-ray examination of the shoulder. Electronically Signed: Nithin Martines MD (Brooks) at 16:46 EDT , Service support ,
--- NOTE | 2020-12-13 19:44 | RAD_ITS ---
STUDY: X-RAY - LEFT SHOULDER REASON FOR EXAM: Male, 60 years old. PAIN TECHNIQUE: 4 view(s) of the shoulder. COMPARISON: None. FINDINGS: Normal glenohumeral articulation. Normal acromioclavicular joint. Normal acromion. Cardiac conduction device partially visualized. Normal humeral head and visualized proximal humerus. The soft tissue structures are unremarkable. Normal visualized pulmonary apex. RAD/Shoulder min 2 Views IMPRESSION: Normal x-ray examination of the shoulder. Electronically Signed: Nithin Martines MD (Brooks) at 16:47 EDT , Service support ,
--- NOTE | 2020-12-13 19:44 | RAD_ITS ---
STUDY: X-RAY - LEFT KNEE REASON FOR EXAM: Male, 60 years old. PAIN TECHNIQUE: 4 view(s) of the knee. COMPARISON: None. FINDINGS: Normal visualized distal femur. Normal visualized proximal tibia and fibula. Normal proximal tibiofibular articulation. Normal medial femorotibial compartment. There is mild degenerative arthrosis of the lateral femorotibial compartment. There is mild degenerative arthrosis of the patellofemoral articulation. There is no demonstrated joint effusion. Surgical mitra of the thigh. RAD/Knee 4 or More Views IMPRESSION: Mild degenerative changes. Electronically Signed: Nithin Martines MD (Brooks) at 16:49 EDT , Service support ,
--- NOTE | 2020-12-13 19:44 | RAD_ITS ---
STUDY: X-RAY - LUMBAR SPINE REASON FOR EXAM: Male, 60 years old. PAIN TECHNIQUE: 2 view(s) of the lumbar spine were obtained. COMPARISON: 12/05/2018 FINDINGS: Normal lumbar lordosis. There is no substantial scoliosis. There is a normal alignment of the vertebrae. There is diffuse demineralization with multi-level endplate spondylosis. Normal disc space heights. No compression fracture. Mild facet arthropathy L4-L5 and L5-S1. There is atherosclerotic calcification of the abdominal aorta without a demonstrated aneurysm. RAD/Lumbar Spine 2 or 3 Views IMPRESSION: 1. No compression fracture. 2. Facet dominant degenerative changes of the lumbar spine. 3. Osteopenia. Electronically Signed: Nithin Martines MD (Brooks) at 16:48 EDT , Service support ,
--- NOTE | 2020-12-13 19:44 | RAD_ITS ---
STUDY: X-RAY - RIGHT KNEE REASON FOR EXAM: Male, 60 years old. PAIN TECHNIQUE: 4 view(s) of the knee. COMPARISON: None. FINDINGS: Normal visualized distal femur. Normal visualized proximal tibia and fibula. Normal proximal tibiofibular articulation. Normal medial femorotibial compartment. Normal lateral femorotibial compartment. Normal patellofemoral articulation. Surgical mitra of the soft tissues. Heart Sclerosis. RAD/Knee 4 or More Views IMPRESSION: No fracture or malalignment. Electronically Signed: Nithin Martines MD (Brooks) at 16:50 EDT , Service support ,
--- NOTE | 2020-12-13 19:44 | RAD_ITS ---
STUDY: X-RAY - THORACIC SPINE REASON FOR EXAM: Male, 60 years old. PAIN TECHNIQUE: 3 view(s) of the thoracic spine were obtained. COMPARISON: None. FINDINGS: Normal kyphosis of the thoracic spine. There is no substantial scoliosis. There is demineralization of the thoracic spine with endplate spondylosis. Normal disc space heights. The soft tissue structures are unremarkable. Cardiac conduction device partially visualized. Coronary artery stents. RAD/Thoracic Spine 3 Views IMPRESSION: 1. No compression fracture. Electronically Signed: Nithin Martines MD (Brooks) at 16:47 EDT , Service support ,
[2020-12-13 20:51] LABS: Amphetamine Urine VISTA NEGATIVE (<1000 ng/mL); Barbiturate Urine VISTA NEGATIVE (< 200 ng/mL); Benzodiazepine Urine VISTA NEGATIVE (< 200 ng/mL); Cocaine Urine VISTA NEGATIVE (< 300 ng/mL); Ecstacy Urine VISTA NEGATIVE (< 500 ng/mL); Methadone Urine VISTA NEGATIVE (< 300 ng/mL); PCP Urine VISTA NEGATIVE (< 25 ng/mL); THC Urine VISTA NEGATIVE (< 50 ng/mL); Vista UDS pH Range 5
== END ==
PROVIDERS: PCP Family Medicine; Visit Provider Anesthesiology
DX: M25.511 Pain in right shoulder (principal); M25.512 Pain in left shoulder; M51.36 Other intervertebral disc degeneration, lumbar region; M25.561 Pain in right knee; M25.562 Pain in left knee; F11.20 Opioid dependence, uncomplicated
CPT/HCPCS: 72072; 72100; 73030; 73564; 80307

== ENCOUNTER → 2021-01-06 11:20 | Outpatient (CLI) | payer MEDICARE, SELFPAY ==
[2018-12-13 11:07] VITALS: BMI 26.3
--- NOTE | 2021-01-06 11:52 | CT_ITS ---
STUDY: LOW DOSE CT LUNG CANCER SCREENING REASON FOR EXAM: Male, 60 years old. annual follow up RADIATION DOSAGE (If Supplied By Facility): CTDIvol = ( 4.02 ) mGy, DLP = ( 137.93 ) mGycm TECHNIQUE: No contrast was administered. Low dose technique was utilized (average mAS-38 and kVp 120). 1.25 mm axial source images with a slice interval of 1.25-mm were reconstructed in lung windows. 2.5 mm axial source images with a slice interval of 2.5-mm were reconstructed in lung windows. 5.0 mm axial source images with a slice interval of 5.0-mm were reconstructed in soft tissue windows. Nodule measured using lung windows on PACS and/or independent workstation with automated measurement of minimum and maximum diameter. Nodule measurement reported as average diameter rounded to the nearest whole number. Growth is defined as an increase ins size of greater than 1.5 mm. COMPARISON: 01/19/2020 NODULES: Nodule #: 1 Density: Solid Lung location: Left lower lobe lobe: 0.4 cm from pleura Location in series: Series Number: 2 Image: 160 Size - D1 x D2 mm: 5 x 5 mm: 5 mm average diameter Margin: Smooth Shape: Round Calcification: None Fat: None Temporal comparison: Stable Total lung nodules (excluding granulomas): 1 Emphysema: Mild upper lobe dominant emphysema with a few paraseptal emphysematous blebs Endobronchial lesion: None Aorta: Atherosclerosis with descending thoracic aortic tortuosity and ectasia particularly of the descending thoracic aorta is described on prior chest CTA 10/22/[address] 10/07/2020. Limited visualization given lack of IV contrast. Coronary arteries: Evidence of prior CABG Heart: Stable size. Similar cardiac conduction device Pulmonary artery: Unremarkable. Unopacified technique. Mediastinal nodes: No adenopathy Other chest and abdominal findings: None CT/Low Dose CT Lung Screening IMPRESSION: 1. Lung-RADS category 2 - Continue annual screening with LDCT in 12 months. IMPORTANT NOTES FOR USE: ACR Lung-RADS Version 1.1 Assessment Categories Release Date: 2018 Category: Coded 0-4 bases on nodule(s) with highest degree of suspicion. Negative screen is defined as categories 1 and 2; a positive screen is defined as categories 3 and 4. Category 3 and 4A nodules that are unchanged on interval CT should be coded as category 2, and individuals returned to screening in 12 months. Category 4X: Category 3 or 4 nodules with additional imaging findings that increase the suspicion of lung cancer, such as spiculation, GGN that doubles in size in 1 year, enlarged lymph notes, etc. Category Modifiers: S (significant finding unrelated to lung cancer) Electronically Signed: Nithin Martines MD (Brooks) at 9:23 EST , Service support ,
[2021-01-06 13:24] LABS: BNP,B-Type NATRIURETIC PEPTIDE 78.6 pg/mL (0-100)
[2021-01-06 13:28] LABS: Anion Gap 1 (5-15); BUN 14 mg/dL (7-18); Calcium,Total 9.4 mg/dL (8.5-10.1); Chloride 106 mmol/L (98-107); Creatinine, Serum 1.08 mg/dL (0.70-1.30); EST Glomerular Filtration Rate 74 mL/min (>60); Est Glom Filt Rate - Afr Amer 90 mL/min (>60); Glucose 94 mg/dL (74-106); Potassium 4.3 mmol/L (3.5-5.1); Sodium Level 139 mmol/L (136-145)
== END ==
PROVIDERS: Nurse Practitioner Family; PCP Family Medicine; Visit Provider Nurse Practitioner Acute Care
DX: F17.210 Nicotine dependence, cigarettes, uncomplicated (principal); Z79.899 Other long term (current) drug therapy; R06.00 Dyspnea, unspecified; R91.1 Solitary pulmonary nodule
CPT/HCPCS: 36415; 71271; 80048; 83880

== ENCOUNTER → 2021-01-22 10:08 | Outpatient (CLI) | payer MEDICARE, SELFPAY ==
[2018-12-13 11:07] VITALS: BMI 26.3
[2021-01-22 10:16] LABS: Bacteria 0 SEEN /hpf (None Seen); Mucous, Urine 0 SEEN /hpf (<or=2+); Red Blood Cells-Urine 0 SEEN /hpf (0-5); Squamous Epithelial Cells - UA 0 SEEN /hpf (0-5); White Blood Cells 0 SEEN /hpf (0-5)
[2021-01-22 12:39] LABS: Color, Urine Yellow (Yellow); Glucose, Dipstick 1000 mg/dl (Normal); Ketone-Dipstick Negative (Negative); Leukocyte Esterase-Dipstick Negative /ul (Negative); Nitrite-Dipstick Negative (Negative); Occult Blood-Urine Negative /ul (Negative); Protein-Dipstick Negative (Negative); Urine Bilirubin Dipstick Negative (Negative); Urine Clarity Sl. Cloudy (Clear); Urine Urobilinogen Normal (Normal)
[2021-01-22 12:44] LABS: Absolute Lymphocyte Count 1.95 X10^3/uL (0.83-4.51); Absolute Neutrophil Count 4.7 X10^3/uL (2.0-7.7); Basophil# 0.12 X10^3/uL; Basophil% 1.5 % (0-1); Eosinophil# 0.46 X10^3/uL; Eosinophils% 5.9 % (0-5); Hematocrit 52.2 % (40-54); Hemoglobin 17.2 g/dL (13.0-16.5); Lymphocyte # 1.95 X10^3/ul (0.83-4.51); Lymphocyte % 25.1 % (19-41); Mean Corpuscular Hgb 29.4 pg (27.0-32.0); Mean Corpuscular Volume 89.1 fL (80-94); Mean Platelet Vol. 10.7 fl (6.2-12.0); Monocyte# 0.47 X10^3/uL; Monocyte% 6.1 % (0-10); NRBC Flagged by Analyzer 0 % (0-5); Neutrophil # 4.73 X10^3/uL (2.7-7.7); Platelet Count 209 K/mm3 (150-450); RBC Distribution Width CV 15.1 % (11.6-14.6); RBC Distribution Width SD 49.4 fl (35.1-43.9); Red Blood Count 5.86 M/mm3 (4.6-6.2); White Blood Count 7.8 K/mm3 (4.4-11.0)
[2021-01-22 12:56] LABS: Microalbumin,Random Urine < 5.0 mg/L (NO RANGE EST.)
[2021-01-22 13:01] LABS: PTHIN 91.8 pg/mL (18.4-80.1)
[2021-01-22 13:02] LABS: ALB/GLOB Ratio 0.9 RATIO (0.9-2.4); AST(SGOT) 20 U/L (15-37); Alanine Aminotransfer ALT/SGPT 35 U/L (16-61); Albumin, Serum 3.5 g/dL (3.2-5.0); Alkaline Phosphatase 127 U/L (45-117); Anion Gap 8 (5-15); BUN 18 mg/dL (7-18); BUN/Creat Ratio 12.9 RATIO (10-20); Calcium,Total 9.5 mg/dL (8.5-10.1); Chloride 101 mmol/L (98-107); Cholesterol 150 mg/dL (200); EST Glomerular Filtration Rate 55 mL/min (>60); Est Glom Filt Rate - Afr Amer 67 mL/min (>60); Globulin 4.1 g/dL (2.2-4.2); Glucose 101 mg/dL (74-106); High Density Lipoprotein 22 mg/dL; Magnesium 2.6 mg/dL (1.6-2.6); Phosphorus 2.7 mg/dL (2.5-4.9); Potassium 3.9 mmol/L (3.5-5.1); Protein, Total 7.6 g/dL (6.4-8.2); Sodium Level 138 mmol/L (136-145); Thyroid Stim Hormone (TSH) 0.47 uIU/mL (0.358-3.74); Triglycerides 543 mg/dL
[2021-01-22 13:31] LABS: Hemoglobin A1c 5.9 % (3.8-5.6)
== END ==
PROVIDERS: PCP Family Medicine; Referring Provider Family Medicine; Visit Provider Family Medicine
DX: E11.22 Type 2 diabetes mellitus with diabetic chronic kidney disease (principal); N18.30 Chronic kidney disease, stage 3 unspecified; I48.0 Paroxysmal atrial fibrillation
CPT/HCPCS: 36415; 80053; 80061; 81001; 82043; 82570; 83036; 83735; 83970; 84100; 84443; 85025

== ENCOUNTER → 2021-02-03 13:29 | Outpatient (CLI) | payer MEDICARE, SELFPAY ==
[2018-12-13 11:07] VITALS: BMI 26.3
== END ==
PROVIDERS: PCP Family Medicine; Visit Provider Internal Medicine Cardiovascular Disease
DX: Z00.00 Encounter for general adult medical examination without abnormal findings (principal)

== ENCOUNTER 2021-02-06 03:02 | Emergency (ER) | payer MEDICARE, SELFPAY ==
[2018-12-13 11:07] VITALS: BMI 26.3
[2021-02-06 03:03] VITALS: BP 117/77; PULSE 97; RESP 20; TEMP 36.9; O2SAT 98; BMI 29.8
[2021-02-06 03:06] VITALS: BP 117/77; PULSE 95; RESP 16; TEMP 36.9; O2SAT 97
--- NOTE | 2021-02-06 03:21 | EKG12_ITS ---
Test Reason : CP Blood Pressure : / mmHG Vent. Rate : 096 BPM Atrial Rate : 096 BPM P-R Int : 166 ms QRS Dur : 140 ms QT Int : 392 ms P-R-T Axes : 027 109 040 degrees QTc Int : 495 ms Normal sinus rhythm Right bundle branch block Anterolateral infarct , age undetermined Abnormal ECG Confirmed by JULIO SMART, TABATHA ([id number]), technical writer and editor MARILUZ PAGE ([id number]) on 02/11/2021 9:28:39 AM Referred By: RU Confirmed By:TABATHA KIM MD
--- NOTE | 2021-02-06 03:22 | EDS_ITS ---
HPI History of Present Illness Chief Complaint: Chest Pain Detail of Chief Complaint: Not feeling well since yesterday evening Informant: patient Narrative Narrative: Patient presents to the emergency department with multiple complaints. Patient states that he started with symptoms of cough and sore throat and body aches 2 weeks ago and got better. Patient states yesterday symptoms came back with a vengeance. Patient complains of chills. He complains of left-sided chest discomfort with deep breath as well as left-sided abdominal pain. He complains of a sore throat and headache. Complains of body aches. Patient had the Covid vaccine but not the booster. Denies recent travel or surgery. Patient has history of prior three-vessel CABG in 2011. Patient denies sick contacts. Prior similar symptoms: No PFSH PFSH Medical History (Updated 02/06/21 @ 07:[address] Marily Gao, DO) Abdominal aortic aneurysm (AAA) Abnormal PFT Anxiety Atherosclerosis of coronary artery bypass graft of [place] heart with angina pectoris Chronic HFrEF (heart failure with reduced ejection fraction) COPD (chronic obstructive pulmonary disease) CVA (cerebral vascular accident) Depression Depression with anxiety Descending aortic aneurysm Esophageal stricture Essential (primary) hypertension GERD (gastroesophageal reflux disease) GERD (gastroesophageal reflux disease) History of CVA (cerebrovascular accident) History of non-ST elevation myocardial infarction (NSTEMI) (08/09/20) HLD (hyperlipidemia) Hypersomnia Hypomagnesemia syndrome Ischemic cardiomyopathy Left lower lobe pulmonary nodule Neuropathic pain Nicotine dependence LETTY (obstructive sleep apnea) Osteoporosis PAF (paroxysmal atrial fibrillation) Peripheral vascular occlusive disease Rheumatoid arthritis Smoking greater than 40 pack years Stroke TIA (transient ischemic attack) Home Medications magnesium oxide 400 mg PO DAILY 11/07/18 [History Last Taken 04/20/20] pantoprazole 40 mg tablet,delayed release 40 mg PO BID 11/15/18 [History Last Taken 05/20/20] albuterol sulfate 0.63 mg/3 mL solution for nebulization 0.63 mg INHALATION Q4H PRN #270 ml 07/12/19 [Rx Last Taken 05/20/20] amitriptyline 25 mg tablet 25 mg PO QHS 08/17/19 [History Last Taken 04/20/20] alendronate 70 mg tablet 70 mg PO QWEEK tablet 03/15/20 [History Last Taken 04/15/20] gabapentin 600 mg tablet 600 mg PO 4X/DAY tablet 03/15/20 [History Last Taken 05/20/20] empagliflozin 10 mg tablet 10 mg PO DAILY 09/13/20 [History Last Taken Unknown] furosemide 40 mg tablet 40 mg PO DAILY tab 09/13/20 [History Last Taken Unknown] nitroglycerin 0.4 mg sublingual tablet 0.4 mg SUBLINGUAL Q5M PRN 09/13/20 [History Last Taken Unknown] docusate sodium [Colace] 50 mg PO DAILY 10/21/20 [History Last Taken Unknown] lisinopril 5 mg tablet 5 mg PO DAILY 11/11/20 [History Last Taken Unknown] potassium chloride 20 mEq tablet,extended release 20 meq PO DAILY 11/11/20 [History Last Taken Unknown] clopidogrel 75 mg tablet 75 mg PO DAILY #90 tab 11/21/20 [Rx Last Taken Unknown] isosorbide mononitrate 60 mg tablet,extended release 24 hr 60 mg PO DAILY #90 ta b 11/26/20 [Rx Last Taken Unknown] metoprolol succinate 50 mg tablet,extended release 24 hr 50 mg PO DAILY #90 tab 11/26/20 [Rx Last Taken Unknown] tizanidine 4 mg tablet 4 mg PO Q4H PRN 01/06/21 [History Last Taken Unknown] warfarin 4 mg tablet 4 mg PO DAILY #90 tab 02/03/21 [Rx Last Taken Unknown] atorvastatin 80 mg tablet 80 mg PO QHS #90 tab 02/04/21 [Rx Last Taken Unknown] ciprofloxacin HCl [Cipro] 500 mg PO BID #20 tab 02/06/21 [Rx Last Taken Unknown] metronidazole 500 mg PO Q8H #30 tab 02/06/21 [Rx Last Taken Unknown] oxycodone 5 mg PO Q6H PRN 3 Days #14 cap 02/06/21 [Rx Last Taken Unknown] Allergy/AdvReac Type Severity Reaction Status Date / Time latex Allergy Unknown unknown Verified 02/06/21 03:07 acetaminophen Allergy Anaphylaxis Verified 02/06/21 03:07 [From Darvocet-N] diphenhydramine Allergy Rash Verified 02/06/21 03:07 [From Benadryl] NSAIDS (Non-Steroidal Allergy Anaphylaxis Verified 02/06/21 03:07 Anti-Inflamma Penicillins Allergy Anaphylaxis Verified 02/06/21 03:07 propoxyphene Allergy Anaphylaxis Verified 02/06/21 03:07 [From Darvocet-N] hydrocodone [From Vicodin] AdvReac Mild Nausea/Vom/ Verified 02/06/21 03:07 Diarrhea peppercorn AdvReac NEEDS Uncoded 02/06/21 03:07 FOLLOW-UP Family History Sister CVA (cerebral vascular accident) Heart disease Hypertension High cholesterol Diabetes Cancer lung cancer Father Arthritis Cancer myeloma Mother Arthritis Cancer Brain cancer Surgical History H/O coronary artery bypass surgery (01/28/12) History of angioplasty of peripheral vessel (01/2015) History of coronary artery stent placement (12/13/18) History of implantable cardiac defibrillator (ICD) (09/15/17) History of left heart catheterization (05/20/20) History of left inguinal hernia repair Presence of implantable cardioverter-defibrillator (ICD) S/P femoral-tibial bypass (12/28/18) Social History household members: significant other Smoking Status: Current every day smoker tobacco type: cigarettes Tobacco: How many years used: 40 quit status: considering quitting alcohol intake: never substance use type: does not use caffeine: Yes (cola) Type: carbonated beverages Number of servings: 5 ROS ROS ED Constitutional Constitutional ED: Reports systems reviewed and no addt'l complaints, except as documented and chills; Denies body ache(s) or change in weight Eyes Eyes: Denies acute decrease in peripheral vision, change in vision, double vision or loss of vision ENT ENT ED: Reports none and sore throat; Denies ear pain, lip swelling, loss taste/smell, neck pain or otalgia Cardiovascular Cardiovascular: Reports none and chest pain; Denies abdominal pain, chest pain with activity, leg edema, lightheadedness, palpitations, rapid heart rate or syncope Respiratory/Chest Respiratory/Chest: Reports none, cough and dyspnea; Denies change in mental status, dry cough, hemoptysis, shortness of breath at rest or shortness of breath with exertion Gastrointestinal Gastrointestinal: Reports none and abdominal pain; Denies change in stool character, diarrhea, hematemesis, hematochezia, melena, rectal bleeding or vomiting Genitourinary Genitourinary ED: Reports none; Denies abdominal discomfort, anuria, dysuria, genital pain or polyuria Musculoskeletal Musculoskeletal: Reports none; Denies arthralgias, back pain, difficulty walking, extremity pain, muscle weakness or myalgias Integumentary Reports none; Denies abscess or rash Neurologic Neurologic: Reports none; Denies abnormal gait, confusion, focal weakness, frequent falls, headache(s), loss of vision, numbness, paresthesias, radicular pain, vertigo or weakness Psychiatric Psychiatric: Reports systems reviewed and no addt'l complaints, except as documented and none; Denies behavioral changes, confusion, difficulty concentrating, hallucinations, suicidal ideation, tactile hallucinations or visual hallucinations Endocrine Endocrinology: Denies none, cold intolerance, excessive sweating, fatigue or heat intolerance Hematologic/Lymphatic Hematologic/Lymphatic: Reports none; Denies anemia, easy bleeding or easy bruising Allergic/Immunologic Allergic/Immunologic ED: Denies as per HPI, none, lip swelling, mouth swelling, throat swelling, tongue swelling or hives EXAM Physical Exam Const Vital Signs: 02/06/21 03:03 02/06/21 03:06 02/06/21 03:18 Temperature 98.4 F 98.4 F Temperature Source Oral Oral Pulse Rate 97 95 Respiratory Rate 20 H 16 Respiratory Pattern Tachypnea Blood Pressure 117/77 117/77 Blood Pressure Mean 90 90 Pulse Ox 98 97 Oxygen Delivery Method Room Air Room Air 02/06/21 05:06 02/06/21 07:00 Temperature 98.3 F 98.3 F Temperature Source Oral Temporal Pulse Rate 95 81 Respiratory Rate 18 15 Respiratory Pattern Blood Pressure 122/81 H 112/78 Blood Pressure Mean 94 89 Pulse Ox 95 92 Oxygen Delivery Method Room Air Room Air Positive well nourished and well developed General Appearance ED: well developed and NAD HEENT Reports TM's clear and moist mucous membranes normocephalic and atraumatic; Negative for trauma or tenderness Tympanic Membrane ED: Yes TM's clear Eyes PERRL and EOMs intact bilaterally General Eye ED: Negative for pale conjunctiva or scleral icterus Neck no lymphadenopathy, supple and no JVD General: Negative for tenderness Chest Wall inspection of chest normal and palpation of chest normal Chest: Negative for tenderness Resp normal respiratory effort and clear to auscultation bilaterally Effort and Inspection: Negative for respiratory distress or pain with movement Auscultation: Negative for rhonchi, wheezes or diminished lung sounds Cardio regular rate, regular rhythm, S1 normal heart sound, S2 normal heart sound and no murmurs Peripheral Pulses: pulses 2+ throughout GI normal to inspection, nondistended, normoactive bowel sounds, soft to palpation, non-tender, non-distended and no masses Back/Spine no CVA tenderness and no thoracic nor lumbar tenderness Extremity normal to inspection General Extremety ED: Negative for edema General Extremity: Negative for edema Neuro oriented x3, CN's II-XII intact bilaterally, no sensory deficits noted and gait normal Sensorium / Orientation: awake, alert, oriented to person, oriented to place and oriented to time Motor Exam: strength 5/5 throughout and strength abnormal Psych mental status grossly normal Skin no rashes or lesions noted and no wounds MDM MDM MDM Narrative Medical decision making narrative: IV line established on arrival. EKG obtained showed a sinus rhythm with a ventricular rate of 96 bpm with a right bundle branch block old anterior lateral infarct. Lab work-up was unremarkable. D- dimer was elevated 1.16 therefore CTA of the chest was obtained to rule out PE this was negative for PE did show a dilated tortuous aorta up to 5 cm at the aortic arch however when compared with prior CT scan from August 2020 no signifi cant interval changes noted. CT scan of the abdomen pelvis did show acute diverticulitis. Patient was medicated morphine and Zofran. Patient's chest pain is atypical and I do not feel he is having acute coronary syndrome. Patient already on warfarin and had a therapeutic INR 3 days ago. Patient will be started on Cipro and Flagyl and given a prescription for Thompson for pain Lab Data Attestation: I reviewed the patient's lab results. Labs: Laboratory Results - last 24 hr 02/06/21 02/06/21 02/06/21 03:10 03:10 03:10 WBC 9.6 RBC 5.86 Hgb 17.1 H Hct 51.8 MCV 88.4 MCH 29.2 MCHC 33.0 RDW Std Deviation 50.5 H RDW Coeff of Jack 15.6 H Plt Count 220 MPV 9.9 Immature Gran % (Auto) 0.600 Neut % (Auto) 63.2 Lymph % (Auto) 23.1 Mckenzie % (Auto) 7.2 Eos % (Auto) 4.6 Baso % (Auto) 1.3 H Absolute Neuts (auto) 6.1 Absolute Lymphs (auto) 2.22 Nucleated RBC % 0 D-Dimer Quant (PE/DVT) 1.16 H* Sodium 137 Potassium 4.1 Chloride 103 Carbon Dioxide 28.0 Anion Gap 6 BUN 19 H Creatinine 1.24 Estim Creat Clear Calc 60.71 Est GFR (MDRD) Af Amer 77 Est GFR (MDRD) Non-Af 64 BUN/Creatinine Ratio 15.3 Glucose 115 H Calcium 9.1 Troponin I High Sens 11 B-Natriuretic Peptide 02/06/21 03:10 WBC RBC Hgb Hct MCV MCH MCHC RDW Std Deviation RDW Coeff of Jack Plt Count MPV Immature Gran % (Auto) Neut % (Auto) Lymph % (Auto) Mckenzie % (Auto) Eos % (Auto) Baso % (Auto) Absolute Neuts (auto) Absolute Lymphs (auto) Nucleated RBC % D-Dimer Quant (PE/DVT) Sodium Potassium Chloride Carbon Dioxide Anion Gap BUN Creatinine Estim Creat Clear Calc Est GFR (MDRD) Af Amer Est GFR (MDRD) Non-Af BUN/Creatinine Ratio Glucose Calcium Troponin I High Sens B-Natriuretic Peptide 26.4 Radiography Chest X-Ray - ED: 1 View Diagnostic Testing: Clinical Impression(s) from Imaging Studies Abdomen/Pelvis CT 02/06/21 03:22 IMPRESSION: Descending colon diverticulitis. Infrarenal abdominal aortic aneurysm measures 3.5 cm in diameter. Cholelithiasis. Electronically Signed: Radha Boyd MD at 4:36 EST Tel , Service support , Chest X-Ray 02/06/21 03:45 IMPRESSION: No demonstrated acute cardiopulmonary process. Electronically Signed: Radha Boyd MD at 4:26 EST Tel , Service support , Chest CTA 02/06/21 04:19 IMPRESSION: Extensive atherosclerotic plaque formation is noted in the aortic arch and descending aorta with tortuosity and aneurysmal dilatation measuring up to 5 cm in maximum diameter. No demonstrated pulmonary embolism or arterial dissection. Electronically Signed: Radha Boyd MD at 5:59 EST Tel , Service support , ADDENDUM: 02/06/21 0642 1 view chest x-ray obtained interpreted by myself as no acute disease process. Radiology in agreement. EKG Initial EKG: Attestation: I personally reviewed and interpreted this EKG as follows: Comments: Sinus rhythm with a ventricular rate of 96 bpm with old anterior lateral infarct and a right bundle branch block Discharge Plan Triage Chief Complaint: Chest Pain ED Provider: Marily Gao Dx/Rx/DC Orders Clinical Impression: Acute diverticulitis, Viral URI, Chest pain Instructions: ED Chest Pain, Uncertain Cause, ED Diverticulitis, ED URI, Viral, No Abx (Adult) Prescriptions: New ciprofloxacin HCl [Cipro] 500 mg tablet 500 mg PO BID Qty: 20 RF: 0 metronidazole 500 mg tablet 500 mg PO Q8H Qty: 30 RF: 0 oxycodone 5 mg capsule 5 mg PO Q6H PRN (Reason: pain) 3 Days Qty: 14 RF: 0 No Action pantoprazole 40 mg tablet,delayed release (DR/EC) 40 mg PO BID RF: 0 gabapentin 600 mg tablet 600 mg PO 4X/DAY RF: 0 albuterol sulfate 0.63 mg/3 mL solution for nebulization 0.63 mg INHALATION Q4H PRN (Reason: shortness of breath or wheezing) Qty: 270 RF: 4 amitriptyline 25 mg tablet 25 mg PO QHS RF: 0 alendronate 70 mg tablet 70 mg PO QWEEK RF: 0 Jardiance 10 mg tablet 10 mg PO DAILY RF: 0 nitroglycerin 0.4 mg tablet, sublingual 0.4 mg sublingual Q5M PRN (Reason: Pain) RF: 0 lisinopril 5 mg tablet 5 mg PO DAILY RF: 0 potassium chloride 20 mEq tablet extended release 20 meq PO DAILY RF: 0 tizanidine 4 mg tablet 4 mg PO Q4H PRN (Reason: Pain) RF: 0 magnesium oxide 400 MG tablet 400 mg PO DAILY RF: 0 furosemide 40 mg tablet 40 mg PO DAILY RF: 0 Colace 50 mg Capsule 50 mg PO DAILY RF: 0 clopidogrel 75 mg tablet 75 mg PO DAILY Qty: 90 RF: 3 isosorbide mononitrate 60 mg tablet extended release 24 hr 60 mg PO DAILY Qty: 90 RF: 3 metoprolol succinate 50 mg tablet extended release 24 hr 50 mg PO DAILY Qty: 90 RF: 3 warfarin 4 mg tablet 4 mg PO DAILY Qty: 90 RF: 4 atorvastatin 80 mg tablet 80 mg PO QHS Qty: 90 RF: 3 Primary Care Provider: Oral Calderon Referrals: Oral Calderon MD [Primary Care Provider] - 3-5 Days Disposition Disposition: Home, Self Care
--- NOTE | 2021-02-06 03:22 | CT_ITS ---
STUDY: CT ABDOMEN AND PELVIS WITHOUT CONTRAST REASON FOR EXAM: Male, 60 years old. abdominal pain RADIATION DOSAGE (If Supplied By Facility): CTDIvol = ( 18.82 ) mGy, DLP = ( 893.24 ) mGycm TECHNIQUE: Transaxial images were obtained from the dome of the diaphragm to the symphysis pubis without oral contrast, and without intravenous contrast. Sagittal and coronal images were reconstructed. Individualized dose optimization techniques were used for this CT. COMPARISON: None. FINDINGS: The visualized lung bases are unremarkable. The visualized portions of the heart are within normal limits. Normal liver. There is a solitary gallstone. Normal spleen. Normal pancreas. Normal bilateral adrenal glands. Normal right kidney. Normal left kidney. Normal visualized stomach. Normal small intestine. There is diverticulosis, with thickening of the colon wall, and pericolonic inflammation changes consistent with acute diverticulitis. The appendix is visualized and appears normal. Infrarenal abdominal aortic aneurysm measures 3.5 cm in diameter. Normal inferior vena cava. Normal retroperitoneum. Normal urinary bladder. Normal abdominal wall. Normal osseous structures. CT/Abdomen/Pelvis without Cont IMPRESSION: Descending colon diverticulitis. Infrarenal abdominal aortic aneurysm measures 3.5 cm in diameter. Cholelithiasis. Electronically Signed: Radha Boyd MD at 4:36 EST Tel , Service support ,
[2021-02-06 03:36] LABS: Absolute Lymphocyte Count 2.22 X10^3/uL (0.83-4.51); Absolute Neutrophil Count 6.1 X10^3/uL (2.0-7.7); Basophil# 0.12 X10^3/uL; Basophil% 1.3 % (0-1); Eosinophil# 0.44 X10^3/uL; Eosinophils% 4.6 % (0-5); Hematocrit 51.8 % (40-54); Hemoglobin 17.1 g/dL (13.0-16.5); Lymphocyte # 2.22 X10^3/ul (0.83-4.51); Lymphocyte % 23.1 % (19-41); Mean Corpuscular Hgb 29.2 pg (27.0-32.0); Mean Corpuscular Volume 88.4 fL (80-94); Mean Platelet Vol. 9.9 fl (6.2-12.0); Monocyte# 0.69 X10^3/uL; Monocyte% 7.2 % (0-10); NRBC Flagged by Analyzer 0 % (0-5); Neutrophil # 6.07 X10^3/uL (2.7-7.7); Neutrophil % 63.2 % (47-70); Platelet Count 220 K/mm3 (150-450); RBC Distribution Width CV 15.6 % (11.6-14.6); RBC Distribution Width SD 50.5 fl (35.1-43.9); Red Blood Count 5.86 M/mm3 (4.6-6.2); White Blood Count 9.6 K/mm3 (4.4-11.0)
--- NOTE | 2021-02-06 03:45 | RAD_ITS ---
STUDY: X-RAY CHEST REASON FOR EXAM: Male, 60 years old. dypsnea TECHNIQUE: Single AP portable view of the chest. COMPARISON: None. FINDINGS: Pacemaker is seen on the left side. The lungs are clear and expanded. There is no demonstrated pleural abnormality. Normal size heart. Normal mediastinum and jovanni. Normal visualized pulmonary arteries. Normal visualized aortic arch and descending thoracic aorta. Normal visualized thoracic spine. Normal visualized ribs, clavicles, and shoulders. There is no demonstrated abnormality of the visualized soft tissue structures of the upper abdomen. RAD/Chest 1 View (Portable) IMPRESSION: No demonstrated acute cardiopulmonary process. Electronically Signed: Radha Boyd MD at 4:26 EST Tel , Service support ,
[2021-02-06 03:51] LABS: Anion Gap 6 (5-15); BUN 19 mg/dL (7-18); BUN/Creat Ratio 15.3 RATIO (10-20); Calcium,Total 9.1 mg/dL (8.5-10.1); Chloride 103 mmol/L (98-107); Creatinine, Serum 1.24 mg/dL (0.70-1.30); EST Glomerular Filtration Rate 64 mL/min (>60); Est Glom Filt Rate - Afr Amer 77 mL/min (>60); Estimated Creatinine Clearance 60.71 ml/min; Glucose 115 mg/dL (74-106); Potassium 4.1 mmol/L (3.5-5.1); Sodium Level 137 mmol/L (136-145); Troponin-I HS 11 pg/mL (3.0-78.0)
[2021-02-06 04:03] LABS: BNP,B-Type NATRIURETIC PEPTIDE 26.4 pg/mL (0-100)
[2021-02-06 04:06] LABS: D-Dimer Quantitative (DVT/PE) 1.16 FEU/ug/m (0.27-0.49)
--- NOTE | 2021-02-06 04:19 | CT_ITS ---
STUDY: CTA CHEST REASON FOR EXAM: Male, 60 years old. elevated d-dimer, chest pain RADIATION DOSAGE (If Supplied By Facility): CTDIvol = ( 12.22 ) mGy, DLP = ( 535.55 ) mGycm TECHNIQUE: The examination was performed with the intravenous administration of IV 100mL Isovue-370. Post-processing of the angiographic images was performed, with multiplanar reformation and 3D reconstruction. Individualized dose optimization techniques were used for this CT. COMPARISON: None. FINDINGS: Normal enhancement of the main pulmonary artery and right and left pulmonary arteries. Normal enhancement of the bilateral peripheral pulmonary arteries. There is no demonstrated pulmonary embolism. Extensive atherosclerotic plaque formation is noted in the aortic arch and descending aorta with tortuosity and aneurysmal dilatation measuring up to 5 cm in maximum diameter. There is no demonstrated aortic dissection. Normal heart and pericardium. Normal mediastinum. Normal hilar regions. Normal visualized trachea and bronchi. The lungs are well expanded. Normal pulmonary parenchyma. Normal pleura. Normal chest wall structures. Normal osseous structures. Normal visualized upper abdomen. CT/CTA Chest W/WO Contrast IMPRESSION: Extensive atherosclerotic plaque formation is noted in the aortic arch and descending aorta with tortuosity and aneurysmal dilatation measuring up to 5 cm in maximum diameter. No demonstrated pulmonary embolism or arterial dissection. Electronically Signed: Radha Boyd MD at 5:59 EST Tel , Service support ,
[2021-02-06 05:06] VITALS: BP 122/81; PULSE 95; RESP 18; TEMP 36.8; O2SAT 95
[2021-02-06] MEDS: 0.9% Normal Saline 1,000 ML 150 ML IV (05:31)
[2021-02-06] MEDS: Ondansetron 4 MG/2 ML Vial IV (06:05)
[2021-02-06] MEDS: Morphine 4 MG/ML Syringe IV (06:05)
[2021-02-06 07:00] VITALS: BP 112/78; PULSE 81; RESP 15; TEMP 36.8; O2SAT 92
[2021-02-06 07:48] VITALS: BP 125/78; PULSE 105; RESP 18; O2SAT 93
[2021-02-06] MEDS: metroNIDAZOLE 500 MG Tablet PO (07:54)
[2021-02-06] MEDS: Ciprofloxacin 500 MG Tablet PO (07:54)
== END 2021-02-06 07:56 | disposition home or self-care (01) ==
PROVIDERS: Emergency Provider Emergency Medicine; PCP Family Medicine
DX: K57.32 Diverticulitis of large intestine without perforation or abscess without bleeding (principal); J06.9 Acute upper respiratory infection, unspecified; R07.89 Other chest pain; Z20.822 Contact with and (suspected) exposure to COVID-19; I11.0 Hypertensive heart disease with heart failure; I50.22 Chronic systolic (congestive) heart failure; I25.810 Atherosclerosis of coronary artery bypass graft(s) without angina pectoris; J44.9 Chronic obstructive pulmonary disease, unspecified; I48.0 Paroxysmal atrial fibrillation; K21.9 Gastro-esophageal reflux disease without esophagitis; E78.5 Hyperlipidemia, unspecified; I25.5 Ischemic cardiomyopathy; G47.33 Obstructive sleep apnea (adult) (pediatric); F32.A Depression, unspecified; F17.210 Nicotine dependence, cigarettes, uncomplicated; Z79.01 Long term (current) use of anticoagulants; Z79.02 Long term (current) use of antithrombotics/antiplatelets; Z79.899 Other long term (current) drug therapy; I25.2 Old myocardial infarction; Z86.73 Personal history of transient ischemic attack (TIA), and cerebral infarction without residual deficits; Z95.1 Presence of aortocoronary bypass graft; Z95.810 Presence of automatic (implantable) cardiac defibrillator
CPT/HCPCS: 71045; 71275; 74176; 80048; 83880; 84484; 85025; 85379; 87426; 87804; 93005; 96361; 96374; 96375; 99285; J7030; Q9967; A4216; J2405

== ENCOUNTER 2021-02-07 11:22 | Emergency (ER) | payer MEDICARE, SELFPAY ==
[2018-12-13 11:07] VITALS: BMI 26.3
[2021-02-07] VITALS (24 sets, daily range): BP systolic 104–142; BP diastolic 61–87; PULSE 88–111; RESP 14–18; TEMP 36.1–36.6; O2SAT 91–95; BMI 30.2
--- NOTE | 2021-02-07 11:33 | CT_ITS ---
We are attempting to reach an attending provider to discuss findings. An addendum with communication details will be sent when the communication is complete. HISTORY: Neuro deficit, acute, stroke suspected. TECHNIQUE: Routine [place]/brain and carotid CT angiogram protocol was performed with IV contrast. Nascet criteria using the distal ICAs for comparison were used for evaluation of stenoses. 2D/3D reconstructions were reviewed. A radiation dose optimization technique was used for this scan. IV Contrast dosage and agent: 100 mL Isovue-370. Number of images including paperwork: 534. COMPARISON: 10/22/2020. FINDINGS: CTA head- ICAs: Mild calcified plaque at both siphons. No significant stenosis at the intracranial/visualized segments. ACAs: No significant stenosis at the visualized segments. MCAs: No significant stenosis at the visualized segments. director biology: Right origin incidentally noted. No significant stenosis at the visualized segments. BASILAR ARTERY: No significant stenosis. VERTEBRAL ARTERIES: No significant stenosis at the intradural/visualized segments. No evidence of intracranial aneurysm or vascular malformation. CTA neck- RIGHT CCA: Minimal calcified and noncalcified plaque at the bifurcation. No occlusion, significant stenosis or dissection. RIGHT ICA: Noncalcified and calcified plaque with small ulcerations at the origin. No occlusion or significant stenosis. LEFT CCA: Minimal calcified plaque at the bifurcation. No occlusion, significant stenosis or dissection. LEFT ICA: Noncalcified plaque and small ulcerations at the origin. No occlusion, significant stenosis or dissection. RIGHT VERTEBRAL ARTERY: No occlusion, significant stenosis or dissection. LEFT VERTEBRAL ARTERY: No occlusion, significant stenosis or dissection. AORTIC ARCH AND BRANCHES: Obscured by motion artifact with calcified and noncalcified ulcerated plaque noted. SOFT TISSUES: Artifact from cardiac pacemaker. CT/STROKE CTA Head AND Neck W/Con IMPRESSION: No evidence for significant stenosis or occlusion in the [place] region. No evidence for significant stenosis in the carotid or vertebral arteries of the neck. Individualized dose optimization techniques were used for this CT. at 1215 Reported and signed by: Maylin Wilson MD Electronically Signed: Maylin Wilson MD at 12:14 EST Tel , Service support ,
--- NOTE | 2021-02-07 11:33 | CT_ITS ---
HISTORY: chest pain, stroke symptoms. TECHNIQUE: Helically acquired images of the chest following IV contrast as per angiogram protocol with 2D and 3D reconstructions. A radiation dose optimization technique was used for this scan. IV Contrast dosage and agent: 100 mL Isovue-370. # of images incl. paperwork: [id number]. COMPARISON: 02/06/2021, 10/07/2020. FINDINGS: CENTRAL AIRWAYS: Minimal adherent material in the trachea. LUNGS: Mild emphysema. 6 mm noncalcified left lower lobe nodule. PLEURA: No pneumothorax or pleural effusion. PULMONARY ARTERIES: No filling defect. HEART/PERICARDIUM: Heart within normal limits in size with pacemaker in place and coronary artery bypass graft noted. No significant pericardial effusion. AORTA: 3.5 cm ascending aorta. Chronic ulcerated plaque in the aortic arch. Chronic ulcerated noncalcified and calcified plaque in the descending aorta with mural thrombus and aneurysm measuring up to 4.9 cm. Mural thrombus extends to the abdominal aorta. MEDIASTINUM/RODNEY: No enlarged lymph nodes. OSSEOUS STRUCTURES: Midline sternotomy. UPPER ABDOMEN: Hepatic steatosis. CT/CTA Chest W/WO Contrast IMPRESSION: No significant interval change in size of 4.9 cm descending thoracic aortic aneurysm with mural thrombus. No evidence for acute thoracic aortic dissection or pulmonary embolism. Emphysema with stable 6 mm left lower lobe pulmonary nodule. Individualized dose optimization techniques were used for this CT. at 122 Reported and signed by: Maylin Wilson MD Electronically Signed: Maylin Wilson MD at 12:28 EST Tel , Service support ,
--- NOTE | 2021-02-07 11:33 | CT_ITS ---
We are attempting to reach an attending provider to discuss findings. An addendum with communication details will be sent when the communication is complete. HISTORY: Neuro deficit, acute, stroke suspected. TECHNIQUE: Multiple axial images were obtained of the brain without intravenous contrast. A radiation dose optimization technique was used for this scan. # of images incl. paperwork: 268. COMPARISON: 10/22/2020. FINDINGS: BRAIN PARENCHYMA:Multiple small foci and zones of low attenuation in the cerebral white matter most compatible with chronic small vessel ischemic gliosis. Old lacunar infarct in the left basal ganglia. INTRACRANIAL HEMORRHAGE: No acute intracranial hemorrhage. CSF SPACES/MASS EFFECT: Diffuse atrophy with compensatory ventricular enlargement. No midline shift or other significant mass effect. ORBITS: Unremarkable. CALVARIUM: Intact. PARANASAL SINUSES AND MASTOID AIR CELLS: Right maxillary sinus mucous retention cyst. ASPECTS Score for Acute Strokes: 10. CT/STROKE Brain/Head without Cont IMPRESSION: No acute intracranial process identified. Chronic small vessel ischemic gliosis. Individualized dose optimization techniques were used for this CT. at 1207 Reported and signed by: Maylin Wilson MD Electronically Signed: Maylin Wilson MD at 12:05 EST Tel , Service support ,
--- NOTE | 2021-02-07 11:33 | EKG12_ITS ---
Test Reason : Blood Pressure : / mmHG Vent. Rate : 109 BPM Atrial Rate : 109 BPM P-R Int : 166 ms QRS Dur : 140 ms QT Int : 376 ms P-R-T Axes : 035 114 043 degrees QTc Int : 506 ms Atrial-sensed ventricular-paced rhythm Abnormal ECG Confirmed by JULIO SMART, TABATHA ([id number]), editor in chief MARILUZ PAGE ([id number]) on 02/11/2021 9:36:41 AM Referred By: FAITH Confirmed By:TABATHA KIM MD
--- NOTE | 2021-02-07 11:34 | ED.VIS.STROK ---
HPI History of Present Illness Chief Complaint: Chest Pain Informant: patient Onset/Context/Timing Onset: Today and Hours (about 2-3) Context: Sudden Onset Timing: Continuous Quality and Location: Positive for Left Facial Droop, Left Face Parasthesia, Left Arm Parasthesia, Left Leg Parasthesia, Left Arm Weakness and Left Leg Weakness Onset: 929 this AM Current Severity: Severe Maximum Severity: Severe Worsened by: nothing Relieved by: nothing Associated Symptoms Associated Symptoms: Positive for Nausea and Chest Pain; Negative for Headache and Vomiting Narrative Narrative: Patient called EMS for chest discomfort that feels like prior heart attacks, he describes it as acid reflux, so I know it is another heart attack because I have had 29. He also told darrian he had a left facial droop and no other symptoms, they did not notice the facial droop and so no prehospital stroke team was called. The patient provides one-word answers to most questions and provides no eye contact. He is very poor historian. On further questioning of details, he states that he awoke around 6 AM, his chest discomfort started at 8 AM, feels like a semi sitting on his chest along with pain in his left upper arm like someone punched me there, and his left facial droop started at 9:30 AM, along with numbness in his left hand, tingling in his left lower extremity, and weakness in his left arm and leg with trouble walking. He agrees that he is talking normally. He is on warfarin and clopidogrel and does not take aspirin. He states he still smokes. He cannot recall when his last heart cath was, he states it was a while ago. He is a little short of breath with this, he is not sweaty and has had no palpitations or syncopal episodes. He was seen here in the ER yesterday, darrian reported that he was seen here for chest pain yesterday but the patient denies this and states he was seen here for a viral upper respiratory tract infection and diverticulitis -- it is all in the records. [facility] Medical History Abdominal aortic aneurysm (AAA) Abnormal PFT Anxiety Atherosclerosis of coronary artery bypass graft of [place] heart with angina pectoris Chronic HFrEF (heart failure with reduced ejection fraction) COPD (chronic obstructive pulmonary disease) CVA (cerebral vascular accident) Depression Depression with anxiety Descending aortic aneurysm Esophageal stricture Essential (primary) hypertension GERD (gastroesophageal reflux disease) GERD (gastroesophageal reflux disease) History of CVA (cerebrovascular accident) History of non-ST elevation myocardial infarction (NSTEMI) (08/09/20) HLD (hyperlipidemia) Hypersomnia Hypomagnesemia syndrome Ischemic cardiomyopathy Left lower lobe pulmonary nodule Neuropathic pain Nicotine dependence LETTY (obstructive sleep apnea) Osteoporosis PAF (paroxysmal atrial fibrillation) Peripheral vascular occlusive disease Rheumatoid arthritis Smoking greater than 40 pack years Stroke TIA (transient ischemic attack) Home Medications magnesium oxide 400 mg PO DAILY 11/07/18 [History Last Taken 04/20/20] pantoprazole 40 mg tablet,delayed release 40 mg PO BID 11/15/18 [History Last Taken 05/20/20] albuterol sulfate 0.63 mg/3 mL solution for nebulization 0.63 mg INHALATION Q4H PRN #270 ml 07/12/19 [Rx Last Taken 05/20/20] amitriptyline 25 mg tablet 25 mg PO QHS 08/17/19 [History Last Taken 04/20/20] alendronate 70 mg tablet 70 mg PO QWEEK tablet 03/15/20 [History Last Taken 04/15/20] gabapentin 600 mg tablet 600 mg PO 4X/DAY tablet 03/15/20 [History Last Taken 05/20/20] empagliflozin 10 mg tablet 10 mg PO DAILY 09/13/20 [History Last Taken Unknown] furosemide 40 mg tablet 40 mg PO DAILY tab 09/13/20 [History Last Taken Unknown] nitroglycerin 0.4 mg sublingual tablet 0.4 mg SUBLINGUAL Q5M PRN 09/13/20 [History Last Taken Unknown] docusate sodium [Colace] 50 mg PO DAILY 10/21/20 [History Last Taken Unknown] lisinopril 5 mg tablet 5 mg PO DAILY 11/11/20 [History Last Taken Unknown] potassium chloride 20 mEq tablet,extended release 20 meq PO DAILY 11/11/20 [History Last Taken Unknown] clopidogrel 75 mg tablet 75 mg PO DAILY #90 tab 11/21/20 [Rx Last Taken Unknown] isosorbide mononitrate 60 mg tablet,extended release 24 hr 60 mg PO DAILY #90 tab 11/26/20 [Rx Last Taken Unknown] metoprolol succinate 50 mg tablet,extended release 24 hr 50 mg PO DAILY #90 tab 11/26/20 [Rx Last Taken Unknown] tizanidine 4 mg tablet 4 mg PO Q4H PRN 01/06/21 [History Last Taken Unknown] warfarin 4 mg tablet 4 mg PO DAILY #90 tab 02/03/21 [Rx Last Taken Unknown] atorvastatin 80 mg tablet 80 mg PO QHS #90 tab 02/04/21 [Rx Last Taken Unknown] ciprofloxacin HCl [Cipro] 500 mg PO BID #20 tab 02/06/21 [Rx Last Taken Unknown] metronidazole 500 mg PO Q8H #30 tab 02/06/21 [Rx Last Taken Unknown] oxycodone 5 mg PO Q6H PRN 3 Days #14 cap 02/06/21 [Rx Last Taken Unknown] Allergy/AdvReac Type Severity Reaction Status Date / Time latex Allergy Unknown unknown Verified 02/07/21 11:27 acetaminophen Allergy Anaphylaxis Verified 02/07/21 11:27 [From Darvocet-N] diphenhydramine Allergy Rash Verified 02/07/21 11:27 [From Benadryl] NSAIDS (Non-Steroidal Allergy Anaphylaxis Verified 02/07/21 11:27 Anti-Inflamma Penicillins Allergy Anaphylaxis Verified 02/07/21 11:27 propoxyphene Allergy Anaphylaxis Verified 02/07/21 11:27 [From Darvocet-N] hydrocodone [From Vicodin] AdvReac Mild Nausea/Vom/ Verified 02/07/21 11:27 Diarrhea peppercorn AdvReac NEEDS Uncoded 02/07/21 11:27 FOLLOW-UP Family History Sister CVA (cerebral vascular accident) Heart disease Hypertension High cholesterol Diabetes Cancer lung cancer Father Arthritis Cancer myeloma Mother Arthritis Cancer Brain cancer Surgical History H/O coronary artery bypass surgery (01/28/12) History of angioplasty of peripheral vessel (01/2015) History of coronary artery stent placement (12/13/18) History of implantable cardiac defibrillator (ICD) (09/15/17) History of left heart catheterization (05/20/20) History of left inguinal hernia repair Presence of implantable cardioverter-defibrillator (ICD) S/P femoral-tibial bypass (12/28/18) Social History household members: significant other Smoking Status: Current every day smoker tobacco type: cigarettes Tobacco: How many years used: 40 quit status: considering quitting alcohol intake: never substance use type: does not use caffeine: Yes (cola) Type: carbonated beverages Number of servings: 5 ROS ROS ED Constitutional Constitutional ED: Denies chills or fever(s) Eyes Eyes: Denies change in vision or diplopia ENT ENT ED: Reports nasal congestion; Denies rhinorrhea or sore throat Cardiovascular Cardiovascular: Reports chest pain; Denies palpitations Respiratory/Chest Respiratory/Chest: Reports cough and dyspnea Gastrointestinal Gastrointestinal: Reports nausea; Denies abdominal pain, diarrhea or vomiting Genitourinary Genitourinary ED: Denies dysuria or hematuria Musculoskeletal Musculoskeletal: Denies back pain or neck pain Integumentary Denies abscess or rash Neurologic Neurologic: Reports as per HPI, paresthesias and vertigo; Denies abnormal speech, headache(s) or weakness Psychiatric Psychiatric: Denies anxiety or suicidal thoughts EXAM Physical Exam Const Vital Signs: 02/07/21 11:24 02/07/21 11:27 02/07/21 11:33 Temperature 97 F L 97.4 F L Temperature Source Temporal Temporal Pulse Rate 111 H 108 H Respiratory Rate 18 18 Respiratory Effort Normal Non-Labored Respiratory Pattern Normal Blood Pressure 130/86 H 122/83 H Blood Pressure Mean 100 96 Pulse Ox 92 94 Oxygen Delivery Method Room Air Room Air Oxygen Flow Rate (L/min) 02/07/21 11:35 02/07/21 11:40 02/07/21 12:03 Temperature Temperature Source Pulse Rate 101 H Respiratory Rate 18 Respiratory Effort Respiratory Pattern Blood Pressure 131/84 H 140/77 H Blood Pressure Mean 99 98 Pulse Ox 93 93 Oxygen Delivery Method Room Air Room Air Oxygen Flow Rate (L/min) 02/07/21 12:10 02/07/21 12:30 02/07/21 13:00 Temperature 97.4 F L Temperature Source Temporal Pulse Rate 98 97 88 Respiratory Rate 16 16 16 Respiratory Effort Respiratory Pattern Blood Pressure 140/77 H 120/78 104/72 Blood Pressure Mean 98 92 82 Pulse Ox 92 94 94 Oxygen Delivery Method Nasal Cannula Nasal Cannula Nasal Cannula Oxygen Flow Rate (L/min) 2 2 2 02/07/21 13:30 02/07/21 14:00 02/07/21 14:30 Temperature Temperature Source Pulse Rate 104 H 106 H 103 H Respiratory Rate 18 14 18 Respiratory Effort Respiratory Pattern Blood Pressure 126/84 H 132/67 H 124/74 H Blood Pressure Mean 98 88 90 Pulse Ox 92 91 92 Oxygen Delivery Method Nasal Cannula Nasal Cannula Nasal Cannula Oxygen Flow Rate (L/min) 2 2 2 02/07/21 15:00 02/07/21 15:30 02/07/21 16:00 Temperature Temperature Source Pulse Rate 89 95 98 Respiratory Rate 14 18 16 Respiratory Effort Respiratory Pattern Blood Pressure 121/80 H 117/79 110/76 Blood Pressure Mean 93 91 87 Pulse Ox 93 94 93 Oxygen Delivery Method Nasal Cannula Room Air Nasal Cannula Oxygen Flow Rate (L/min) 2 2 02/07/21 16:15 02/07/21 16:28 02/07/21 16:30 Temperature 97.8 F Temperature Source Pulse Rate 96 98 99 Respiratory Rate 18 18 16 Respiratory Effort Respiratory Pattern Blood Pressure 123/87 H 104/70 104/70 Blood Pressure Mean 99 81 81 Pulse Ox 93 93 93 Oxygen Delivery Method Room Air Nasal Cannula Oxygen Flow Rate (L/min) 2 02/07/21 17:00 02/07/21 17:30 02/07/21 18:00 Temperature Temperature Source Pulse Rate 98 98 88 Respiratory Rate 16 18 16 Respiratory Effort Respiratory Pattern Blood Pressure 106/84 H 117/75 120/63 Blood Pressure Mean 91 89 82 Pulse Ox 92 93 95 Oxygen Delivery Method Nasal Cannula Nasal Cannula Oxygen Flow Rate (L/min) 2 2 02/07/21 18:30 02/07/21 19:00 Temperature Temperature Source Pulse Rate 90 102 H Respiratory Rate 14 18 Respiratory Effort Respiratory Pattern Blood Pressure 115/74 104/71 Blood Pressure Mean 87 82 Pulse Ox 93 92 Oxygen Delivery Method Nasal Cannula Nasal Cannula Oxygen Flow Rate (L/min) 2 2 Positive well nourished and well developed General Appearance ED: well developed and NAD HEENT Reports moist mucous membranes normocephalic and atraumatic Eyes PERRL and EOMs intact bilaterally Neck full ROM and supple Resp normal respiratory effort and clear to auscultation bilaterally Cardio regular rate, regular rhythm and no murmurs GI non-tender and non-distended Auscultation: normoactive bowel sounds Palpation: soft Back/Spine no CVA tenderness General Back: other FROM Extremity normal to inspection General Extremety ED: Negative for edema, pulses abnormal or tenderness General Extremity: Negative for edema or pulses abnormal Neuro oriented x3 Sensorium / Orientation: awake and alert Psych Mood & Affect: flat affect Thought Process: normal thought process Thought Content: normal thought content Skin no rashes or lesions noted and no wounds STROKE Vital Signs/Narrative: Vital Signs Temp Pulse Resp BP Pulse Ox 02/07/21 19:00 102 H 18 104/71 92 02/07/21 18:30 90 14 115/74 93 02/07/21 18:00 88 16 120/63 95 02/07/21 17:30 98 18 117/75 93 02/07/21 17:00 98 16 106/84 H 92 02/07/21 16:30 99 16 104/70 93 02/07/21 16:28 97.8 F 98 18 104/70 93 02/07/21 16:15 96 18 123/87 H 93 02/07/21 16:00 98 16 110/76 93 Inital Vital Signs reviewed: Yes NIHSS Initial: 1a Level of Consciousness: 0 1b LOC Questions (Score 2 if aphasic/stupor): 0 1c LOC Commands (Only score 1st attempt): 0 2 Best Gaze (If aphasic, use reflexive mvmts.): 0 3 Visual: 0 4 Facial Palsy: 1 5 Motor Arm Right (UN = amputation/fusion): 0 5 Motor Arm Left: 1 6 Motor Leg Right: 0 6 Motor Leg Left: 1 7 Limb ataxia (Only + if out of proportion): 0 8 Sensory (Aphasia/stupor=0 or 1, coma=2): 1 9 Best Language: 0 10 Dysarthria (mute, coma=2, intubated=UN): 0 11 Extinction and Inattention (only scored if +): 0 Total Score: 4 MDM MDM MDM Narrative Medical decision making narrative: Stroke team was called, there is concern about aortic dissection given the patient's simultaneous complaints of new chest discomfort and new left-sided neurologic symptoms. He is also on warfarin and was therapeutic 4 days ago. He did have a CTA of the chest yesterday to rule out pulmonary embolus, he had no dissection there but significant amount of aortic arch plaque, and I feel given the new symptoms that he really needs to have the CTA repeated. This was done simultaneous with plain CT of the head, given that ruling out dissection would be required here if the patient is indeed a TPA candidate otherwise. INR returned to 2.3. Therefore at this time the patient is not a TPA candidate. Plain CT shows no hemorrhage on my interpretation, awaiting CTA results. EKG does not show a STEMI or other acute injury, however his symptoms are very concerning and I have a high degree of suspicion his chest pain could be unstable angina. Watching him closely, analgesia provided, however with the stroke symptoms avoiding nitroglycerin so as not to drop his cerebral perfusion pressure. He is clinically and hemodynamically stable at this time, [address] angiography of the head, neck, chest shows nothing acute. Noted is a thoracic aortic aneurysm with significant plaque, stable without dissection. Patient was given morphine for his chest pain, which still present but improved. He is stable, he is not a TPA candidate because his INR is high. Otherwise, he would be. At this time will admit for further evaluation and care for concerning chest pain with a heart score of 2, 1, 1, 3, 0 = 7. Discussed with Dr. Guzman with cardiology, he recommends getting a second set of enzymes which are being obtained, but it is going to be about a 3-hour level compared with the initial, he states if they are negative he is comfortable with the patient staying here. Patient started having some discomfort in his left shoulder blade, EKG was repeated it was unremarkable without any acute changes, and he states morphine usually helps with that. Repeat troponin now elevated 399. Patient is doing well eating a snack, hemodynamically clinically stable still has angina. Discussed again with cardiology and hospitalist, they recommend starting heparin drip and transfer due to his complex coronary anatomy multiple stents with in-stent stenosis multiple times in the past, occluded bypass. Patient was sent to [facility] last time and refuses to go back there now. Wants to go to [facility], they have no beds, no waitlist and refused to accept any patients due to lack of capacity. Patient then wants to go to either [facility] or [facility] because they are closest. [facility] put him on a wait list but does not have any beds right now, [facility] accepted him and they do have a bed that he had to wait a little longer for. Patient was given additional morphine for his pain but otherwise remained clinically hemodynamically stable without any change in his neurologic symptoms in the left side. Lab Data Attestation: I reviewed the patient's lab results. Labs: Laboratory Results - last 24 hr 02/07/21 02/07/21 02/07/21 11:37 11:38 11:38 WBC 7.4 RBC 5.77 Hgb 16.9 H Hct 51.0 MCV 88.4 MCH 29.3 MCHC 33.1 RDW Std Deviation 49.6 H RDW Coeff of Jack 15.2 H Plt Count 212 MPV 10.1 Immature Gran % (Auto) 0.800 Neut % (Auto) 65.8 Lymph % (Auto) 20.7 Andrew % (Auto) 6.6 Eos % (Auto) 4.9 Baso % (Auto) 1.2 H Absolute Neuts (auto) 4.9 Absolute Lymphs (auto) 1.53 Nucleated RBC % 0 PT 24.7 H INR 2.3 APTT 71.1 H Sodium Potassium Chloride Carbon Dioxide Anion Gap BUN Creatinine Estim Creat Clear Calc Est GFR (MDRD) Af Amer Est GFR (MDRD) Non-Af BUN/Creatinine Ratio Glucose Calcium Troponin I High Sens POC Glucose 100 02/07/21 02/07/21 11:38 14:50 WBC RBC Hgb Hct MCV MCH MCHC RDW Std Deviation RDW Coeff of Jack Plt Count MPV Immature Gran % (Auto) Neut % (Auto) Lymph % (Auto) Andrew % (Auto) Eos % (Auto) Baso % (Auto) Absolute Neuts (auto) Absolute Lymphs (auto) Nucleated RBC % PT INR APTT Sodium 140 Potassium 3.9 Chloride 106 Carbon Dioxide 29.0 Anion Gap 5 BUN 15 Creatinine 1.21 Estim Creat Clear Calc 62.22 Est GFR (MDRD) Af Amer 79 Est GFR (MDRD) Non-Af 65 BUN/Creatinine Ratio 12.4 Glucose 95 Calcium 9.4 Troponin I High Sens 30 399 H* POC Glucose Radiography Diagnostic Testing: Clinical Impression(s) from Imaging Studies Brain CT 02/07/21 11:33 IMPRESSION: No acute intracranial process identified. Chronic small vessel ischemic gliosis. Individualized dose optimization techniques were used for this CT. at 1207 Reported and signed by: Maylin Wilson MD Electronically Signed: Maylin Wilson MD at 12:05 EST Tel , Service support , ADDENDUM: 02/07/21 1217 IMPRESSION: No acute intracranial process identified. Chronic small vessel ischemic gliosis. Individualized dose optimization techniques were used for this CT. at 1207 Reported and signed by: Maylin Wilson MD N.B. : Connor Nuñez MD, confirmed on 02/07/2021 12:10:39 (ET) that the referring physician received the results and does not require a verbal communication. Electronically Signed: Maylin Wilson MD at 12:05 EST Tel , Service support , Chest CTA 02/07/21 11:33 IMPRESSION: No significant interval change in size of 4.9 cm descending thoracic aortic aneurysm with mural thrombus. No evidence for acute thoracic aortic dissection or pulmonary embolism. Emphysema with stable 6 mm left lower lobe pulmonary nodule. Individualized dose optimization techniques were used for this CT. at 1229 Reported and signed by: Maylin Wilson MD Electronically Signed: Maylin Wilson MD at 12:28 EST Tel , Service support , Head/Neck CTA 02/07/21 11:33 IMPRESSION: No evidence for significant stenosis or occlusion in the [place] region. No evidence for significant stenosis in the carotid or vertebral arteries of the neck. Individualized dose optimization techniques were used for this CT. at 1215 Reported and signed by: Maylin Wilson MD Electronically Signed: Maylin Wilson MD at 12:14 EST Tel , Service support , ADDENDUM: 02/07/21 1226 IMPRESSION: No evidence for significant stenosis or occlusion in the [place] region. No evidence for significant stenosis in the carotid or vertebral arteries of the neck. Individualized dose optimization techniques were used for this CT. at 1215 Reported and signed by: Maylin Wilson MD N.B. : The above Results were Read Back by Maylin Wilson MD to Connor Nuñez MD, and understanding confirmed on 02/07/2021 12:19:38 (ET). Electronically Signed: Maylin Wilson MD at 12:14 EST Tel , Service support , Chest X-Ray 02/07/21 12:20 IMPRESSION: No significant interval change. at 1231 Reported and signed by: Maylin Wilson MD Electronically Signed: Maylin Wilson MD at 12:30 EST Tel , Service support , EKG Initial EKG: Attestation: I personally reviewed and interpreted this EKG as follows: Interpretation: No Acute Injury Pattern, Sinus Tachycardia (109) and RBBB Prior EKG tracings: available for review (10/22/20) Prior: Unchanged Stroke Documentation Questions Stroke Team Activated: Yes Reviewed Inclusion/Exclusion criteria: Yes IV Alteplase (t-PA) Administered: No (hi INR) Critical Care Time Critical Care Time: Yes Critical care time (excluding procedures): 30-74 minutes (32 min), Including time spent:, Discussing w/Patient &/or Family/Risk Assessment Analyst, Discussing w/Consultants, Arranging Admission or Transfer and Performing Direct Patient Care at Bedside Discharge Plan Triage Chief Complaint: Chest Pain ED Provider: Connor Nuñez Dx/Rx/DC Orders Clinical Impression: Non-ST elevation DC (NSTEMI), Acute left hemiparesis Prescriptions: No Action pantoprazole 40 mg tablet,delayed release (DR/EC) 40 mg PO BID RF: 0 gabapentin 600 mg tablet 600 mg PO 4X/DAY RF: 0 albuterol sulfate 0.63 mg/3 mL solution for nebulization 0.63 mg INHALATION Q4H PRN (Reason: shortness of breath or wheezing) Qty: 270 RF: 4 amitriptyline 25 mg tablet 25 mg PO QHS RF: 0 alendronate 70 mg tablet 70 mg PO QWEEK RF: 0 Jardiance 10 mg tablet 10 mg PO DAILY RF: 0 nitroglycerin 0.4 mg tablet, sublingual 0.4 mg sublingual Q5M PRN (Reason: Pain) RF: 0 lisinopril 5 mg tablet 5 mg PO DAILY RF: 0 potassium chloride 20 mEq tablet extended release 20 meq PO DAILY RF: 0 tizanidine 4 mg tablet 4 mg PO Q4H PRN (Reason: Pain) RF: 0 magnesium oxide 400 MG tablet 400 mg PO DAILY RF: 0 furosemide 40 mg tablet 40 mg PO DAILY RF: 0 Colace 50 mg Capsule 50 mg PO DAILY RF: 0 ciprofloxacin HCl [Cipro] 500 mg tablet 500 mg PO BID Qty: 20 RF: 0 metronidazole 500 mg tablet 500 mg PO Q8H Qty: 30 RF: 0 oxycodone 5 mg capsule 5 mg PO Q6H PRN (Reason: pain) 3 Days Qty: 14 RF: 0 clopidogrel 75 mg tablet 75 mg PO DAILY Qty: 90 RF: 3 isosorbide mononitrate 60 mg tablet extended release 24 hr 60 mg PO DAILY Qty: 90 RF: 3 metoprolol succinate 50 mg tablet extended release 24 hr 50 mg PO DAILY Qty: 90 RF: 3 warfarin 4 mg tablet 4 mg PO DAILY Qty: 90 RF: 4 atorvastatin 80 mg tablet 80 mg PO QHS Qty: 90 RF: 3 Primary Care Provider: Oral Calderon Referrals: Oral Calderon MD [Primary Care Provider] - Disposition Disposition: Acute Care Hospital Discharge Location: [facility]
--- NOTE | 2021-02-07 11:42 | NURSING ---
1130 STROKE ALERT CALLED
[2021-02-07 11:48] LABS: Absolute Lymphocyte Count 1.53 X10^3/uL (0.83-4.51); Absolute Neutrophil Count 4.9 X10^3/uL (2.0-7.7); Basophil# 0.09 X10^3/uL; Basophil% 1.2 % (0-1); Eosinophil# 0.36 X10^3/uL; Eosinophils% 4.9 % (0-5); Hemoglobin 16.9 g/dL (13.0-16.5); Lymphocyte # 1.53 X10^3/ul (0.83-4.51); Lymphocyte % 20.7 % (19-41); Mean Corp Hgb Conc 33.1 g/dL (32-36); Mean Corpuscular Hgb 29.3 pg (27.0-32.0); Mean Corpuscular Volume 88.4 fL (80-94); Mean Platelet Vol. 10.1 fl (6.2-12.0); Monocyte# 0.49 X10^3/uL; Monocyte% 6.6 % (0-10); NRBC Flagged by Analyzer 0 % (0-5); Neutrophil # 4.85 X10^3/uL (2.7-7.7); Neutrophil % 65.8 % (47-70); Platelet Count 212 K/mm3 (150-450); RBC Distribution Width CV 15.2 % (11.6-14.6); RBC Distribution Width SD 49.6 fl (35.1-43.9); Red Blood Count 5.77 M/mm3 (4.6-6.2); White Blood Count 7.4 K/mm3 (4.4-11.0)
[2021-02-07] MEDS: Ondansetron 4 MG/2 ML Vial IV (11:49)
[2021-02-07] MEDS: Morphine 4 MG/ML Syringe IV ×3 (11:49→19:21)
[2021-02-07 11:57] LABS: International Normalized Ratio 2.3; Prothrombin Time (Protime)PT. 24.7 SECONDS (11.7-14.9)
[2021-02-07 11:58] LABS: Partial Thromboplast Time 71.1 Seconds (24.1-36.2)
[2021-02-07 12:06] LABS: Anion Gap 5 (5-15); BUN 15 mg/dL (7-18); BUN/Creat Ratio 12.4 RATIO (10-20); Calcium,Total 9.4 mg/dL (8.5-10.1); Chloride 106 mmol/L (98-107); Creatinine, Serum 1.21 mg/dL (0.70-1.30); EST Glomerular Filtration Rate 65 mL/min (>60); Est Glom Filt Rate - Afr Amer 79 mL/min (>60); Estimated Creatinine Clearance 62.22 ml/min; Glucose 95 mg/dL (74-106); Potassium 3.9 mmol/L (3.5-5.1); Sodium Level 140 mmol/L (136-145); Troponin-I HS 30 pg/mL (3.0-78.0)
--- NOTE | 2021-02-07 12:20 | RAD_ITS ---
HISTORY: Neuro deficit, acute, stroke suspected. TECHNIQUE: XR Chest 1 View. EXAM TIME: 2021-02-07 12:12. # of images incl. paperwork: 1. COMPARISON:02/06/2021. FINDINGS: LINES/DEVICES: Cardiac pacemaker again seen. CARDIOMEDIASTINAL BORDERS: Stable. LUNGS: Clear . PLEURA: No pleural effusion or pneumothorax. RAD/Chest 1 View IMPRESSION: No significant interval change. at 1231 Reported and signed by: Maylin Wilson MD Electronically Signed: Maylin Wilson MD at 12:30 EST Tel , Service support ,
--- NOTE | 2021-02-07 12:40 | CM.ED ---
SW Note Referral Source: Stroke Alert Referral Reason: Stroke Alert SW met with patient's fiance in the ED and provided emotional support. SW remains available in the ED if issues arise. Plan: To be determined Amy HOANG
--- NOTE | 2021-02-07 14:04 | EKG12_ITS ---
Test Reason : Blood Pressure : / mmHG Vent. Rate : 091 BPM Atrial Rate : 091 BPM P-R Int : 182 ms QRS Dur : 144 ms QT Int : 402 ms P-R-T Axes : 032 117 059 degrees QTc Int : 494 ms Normal sinus rhythm Right bundle branch block Anterolateral infarct , age undetermined Abnormal ECG Confirmed by JULIO SMART, TABATHA ([id number]), assistant production editor MARILUZ PAGE ([id number]) on 02/11/2021 9:39:11 AM Referred By: FAITH Confirmed By:TABATHA KIM MD
--- NOTE | 2021-02-07 14:25 | NURSING ---
HOSPITALIST FOR DR CUEVAS.
[2021-02-07 15:41] LABS: Troponin-I HS 399 pg/mL (3.0-78.0)
--- NOTE | 2021-02-07 15:41 | ED.RN ---
high troponin result. notified
--- NOTE | 2021-02-07 16:10 | NURSING ---
CALLED [facility] ABOUT TRANSFER. WILL BE A LONG WAIT.
--- NOTE | 2021-02-07 16:25 | NURSING ---
CALLED [facility]. TALKED TO CARLIE. SHE IS TALKING TO DR CUEVAS
--- NOTE | 2021-02-07 16:36 | NURSING ---
[facility] FOR DR CUEVAS
[2021-02-07] MEDS: Heparin Injection (Vial) 5,000 UNIT/ML VIAL 6000 UNIT IV (16:50)
[2021-02-07 17:00] LABS: Bedside Glucose 100 mg/dL (70-110)
--- NOTE | 2021-02-07 17:32 | NURSING ---
CALLED [facility] . TALKED TO CALLIE. SHE IS TALKING TO DR CUEVAS
--- NOTE | 2021-02-07 17:40 | NURSING ---
ACCEPTED AT [facility] BY DR ENGLISH. HE IS ON THEIR WAIT LIST SINCE HE NEEDS TO GO TO [facility] [place]
--- NOTE | 2021-02-07 18:39 | ED.RN ---
per dr. deisi york [facility]
== END 2021-02-07 21:45 | disposition short-term general hospital (02) ==
PROVIDERS: Emergency Provider Emergency Medicine; PCP Family Medicine
DX: I21.4 Non-ST elevation (NSTEMI) myocardial infarction (principal); G81.94 Hemiplegia, unspecified affecting left nondominant side; R29.810 Facial weakness; R26.2 Difficulty in walking, not elsewhere classified; I25.810 Atherosclerosis of coronary artery bypass graft(s) without angina pectoris; I11.0 Hypertensive heart disease with heart failure; I50.22 Chronic systolic (congestive) heart failure; I48.0 Paroxysmal atrial fibrillation; I25.5 Ischemic cardiomyopathy; J44.9 Chronic obstructive pulmonary disease, unspecified; M06.9 Rheumatoid arthritis, unspecified; G47.33 Obstructive sleep apnea (adult) (pediatric); K21.9 Gastro-esophageal reflux disease without esophagitis; F32.A Depression, unspecified; F17.210 Nicotine dependence, cigarettes, uncomplicated; Z79.01 Long term (current) use of anticoagulants; Z79.02 Long term (current) use of antithrombotics/antiplatelets; Z79.899 Other long term (current) drug therapy; I25.2 Old myocardial infarction; Z86.73 Personal history of transient ischemic attack (TIA), and cerebral infarction without residual deficits; Z95.5 Presence of coronary angioplasty implant and graft; Z95.1 Presence of aortocoronary bypass graft; Z95.810 Presence of automatic (implantable) cardiac defibrillator
CPT/HCPCS: 70450; 70496; 70498; 71045; 71275; 80048; 82962; 84484; 85025; 85610; 85730; 87426; 93005; 96365; 96366; 96374; 96375; 96376; 99285; Q9967; A4216; J2405

== ENCOUNTER 2021-02-13 10:44 | Outpatient (RCR) | payer MEDICARE, SELFPAY ==
[2018-12-13 11:07] VITALS: BMI 26.3
[2021-01-24 17:15] LABS: International Normalized Ratio 2.9; Prothrombin Time (Protime)PT. 29.4 SECONDS (11.7-14.9)
[2021-01-24 17:36] LABS: AST(SGOT) 16 U/L (15-37); Alanine Aminotransfer ALT/SGPT 32 U/L (16-61); Albumin, Serum 3.5 g/dL (3.2-5.0); Alkaline Phosphatase 108 U/L (45-117); Bilirubin, Direct 0.07 mg/dL (0.00-0.30); Cholesterol 154 mg/dL (200); Globulin 3.9 g/dL (2.2-4.2); High Density Lipoprotein 24 mg/dL; Protein, Total 7.4 g/dL (6.4-8.2); Triglycerides 469 mg/dL
[2021-02-03 16:28] LABS: International Normalized Ratio 2.5; Prothrombin Time (Protime)PT. 25.9 SECONDS (11.7-14.9)
[2021-02-13 11:08] LABS: International Normalized Ratio 1.3; Prothrombin Time (Protime)PT. 15.4 SECONDS (11.7-14.9)
== END 2021-02-15 18:00 | disposition home or self-care (01) ==
LOC: LAB 10:44
PROVIDERS: Nurse Practitioner Family; PCP Family Medicine; Visit Provider Internal Medicine Cardiovascular Disease
DX: E78.5 Hyperlipidemia, unspecified (principal); I25.709 Atherosclerosis of coronary artery bypass graft(s), unspecified, with unspecified angina pectoris; Z79.01 Long term (current) use of anticoagulants; Z86.73 Personal history of transient ischemic attack (TIA), and cerebral infarction without residual deficits
CPT/HCPCS: 36415; 80061; 80076; 85610

== ENCOUNTER 2021-03-14 07:56 | Outpatient (CLI) | payer MEDICARE, SELFPAY ==
[2018-12-13 11:07] VITALS: BMI 26.3
--- NOTE | 2021-03-14 08:13 | US_ITS ---
STUDY: SCROTUM ULTRASOUND REASON FOR EXAM: Male, 60 years old. Testicular pain. TECHNIQUE: Ultrasound evaluation of the scrotum was performed with color Doppler and static sebastian-scale imaging. COMPARISON: None. FINDINGS: RIGHT TESTICLE INTRATESTICULAR: There is a normal size of the right testicle. The right testicle measures 3 cm x 3.3 cm x 2.1 cm. There is a homogenous echotexture. There is normal arterial and normal venous vascularity. There is no demonstrated right testicular mass or cyst. EXTRATESTICULAR: The epididymis is normal in size. The epididymis head measures 1.2 cm x 0.8 cm x 1.2 cm. There is normal vascularity of the epididymis. There is no demonstrated epididymal cystic structure. There is a small hydrocele. There is no demonstrated varicocele. There is no demonstrated extratesticular mass or cyst. LEFT TESTICLE INTRATESTICULAR: There is a normal size of the left testicle. The left testicle measures 3 cm x 2.4 cm x 1.9 cm. There is a heterogeneous echotexture. There is normal arterial and normal venous vascularity. There is no demonstrated left testicular mass or cyst. EXTRATESTICULAR: The epididymis is normal in size. The epididymis head measures 0.7 cm x 0.6cm x 0.7 cm. There is normal vascularity of the epididymis. There is no demonstrated epididymal cystic structure. There is no demonstrated hydrocele. There is no demonstrated varicocele. There is no demonstrated extratesticular mass or cyst. US/Testicular with Arterial Flow IMPRESSION: Mild heterogeneity of the left testicle although no focal lesion is seen. Small right hydrocele. Electronically Signed: Geovany Spring MD at 11:08 EST ,
== END 2021-03-14 23:59 | disposition short-term general hospital (02) ==
LOC: US 07:59
PROVIDERS: PCP Family Medicine; Referring Provider Family Medicine; Visit Provider Family Medicine
DX: N50.812 Left testicular pain (principal); Z86.73 Personal history of transient ischemic attack (TIA), and cerebral infarction without residual deficits; Z79.01 Long term (current) use of anticoagulants
CPT/HCPCS: 36415; 76870; 82306; 82570; 84100; 84156; 85610; 93976

== ENCOUNTER 2021-03-14 08:01 | Outpatient (RCR) | payer MEDICARE, SELFPAY ==
[2018-12-13 11:07] VITALS: BMI 26.3
[2021-02-18 09:40] LABS: Prothrombin Time (Protime)PT. 22.3 SECONDS (11.7-14.9)
[2021-02-26 14:14] LABS: Protein, Urine (Random) 6.7 mg/dL (<11.9); Protein:Creat Ratio 136 mg/g CRE (0-200)
[2021-02-26 14:20] LABS: International Normalized Ratio 1.5; Prothrombin Time (Protime)PT. 17.2 SECONDS (11.7-14.9)
[2021-02-26 14:26] LABS: Phosphorus 3.2 mg/dL (2.5-4.9)
[2021-02-26 14:31] LABS: Vitamin D,25 Hydroxy 15.2 ng/mL
[2021-03-04 15:39] LABS: Prothrombin Time (Protime)PT. 21.7 SECONDS (11.7-14.9)
[2021-03-14 09:25] LABS: International Normalized Ratio 2.2; Prothrombin Time (Protime)PT. 23.7 SECONDS (11.7-14.9)
== END 2021-03-17 18:00 | disposition home or self-care (01) ==
LOC: LAB 08:01
PROVIDERS: PCP Family Medicine; Referring Provider Internal Medicine Cardiovascular Disease; Visit Provider Internal Medicine Cardiovascular Disease
DX: Z79.01 Long term (current) use of anticoagulants (principal); Z86.73 Personal history of transient ischemic attack (TIA), and cerebral infarction without residual deficits
CPT/HCPCS: 36415; 82306; 82570; 84100; 84156; 85610

== ENCOUNTER 2021-04-07 14:03 | Outpatient (RCR) | payer MEDICARE, SELFPAY ==
[2018-12-13 11:07] VITALS: BMI 26.3
[2021-04-07 15:02] LABS: International Normalized Ratio 2.9
[2021-04-07 15:32] LABS: PSA,Total - Annual Screen 0.56 ng/mL (0.00-4.00)
== END 2021-04-07 23:59 | disposition home or self-care (01) ==
LOC: LAB 14:03
PROVIDERS: PCP Family Medicine; Referring Provider Internal Medicine Cardiovascular Disease; Visit Provider Internal Medicine Cardiovascular Disease
DX: G45.9 Transient cerebral ischemic attack, unspecified (principal); Z79.01 Long term (current) use of anticoagulants; Z12.5 Encounter for screening for malignant neoplasm of prostate
CPT/HCPCS: 36415; 84153; 85610; G0103

== ENCOUNTER 2021-04-08 14:40 | Outpatient (CLI) | payer MEDICARE, SELFPAY ==
[2018-12-13 11:07] VITALS: BMI 26.3
--- NOTE | 2021-04-08 15:02 | CT_ITS ---
STUDY: CT SOFT TISSUE NECK WITH CONTRAST REASON FOR EXAM: Male, 60 years old. ORAL LESION RADIATION DOSAGE (If Supplied By Facility): CTDIvol = ( 17.89 ) mGy, DLP = ( 514.11 ) mGycm TECHNIQUE: The patient was scanned in a multi-detector CT scanner. High resolution transaxial imaging was performed following intravenous administration of IV 75mL Isovue-370. Sagittal and coronal images were reconstructed. Individualized dose optimization techniques were used for this CT. COMPARISON: None. FINDINGS: Examination is technically limited as the oral cavity is not distended with gas. Mucosal apposition makes it challenging to detect the stated oral lesion. Refer to visual inspection. Examination is further limited due to suboptimal contrast enhancement. Exam was performed in the late arterial phase instead of parenchymal phase. There is minimal enhancement of soft tissues as contrast has not fully perfused through the circulation. Some diagnostic information is available. Mucosal lesion evaluation is limited as mucosa is not enhanced. Lingual tonsil is heterogeneous with a polypoid appearance. There is a 1 cm nodule in the preepiglottic space which is infiltrated/edematous. [place] and pharyngeal tonsils are normal. There is asymmetric enlargement of the left nasopharyngeal tonsil with loss of internal architecture. Mastoid air cells and external auditory canals are clear. There is no skull base destruction. Piriform sinuses are not aerated and difficult to evaluate. Vocal cords are mildly nodular without exophytic lesions. Subglottic trachea is clear. Salivary glands are normal. There is no cervical adenopathy pathologic by CT criteria. Cervical spine is intact and aligned with multilevel mild spondylotic thecal sac stenosis. CT/Soft Tissue Neck WITH Contrast IMPRESSION: 1. Technically suboptimal exam. 2. Left nasopharyngeal lesion. 3. Possible lingual tonsil/preepiglottic space lesion. 4. No cervical lymphadenopathy. 5. Limited assessment of oral cavity, no large lesions. 6. If diagnosis of head and neck malignancy is already established further imaging with CT PET is advised. Electronically Signed: Oumar Sun MD at 13:22 EST ,
== END 2021-04-08 23:59 | disposition home or self-care (01) ==
LOC: CT 14:42
PROVIDERS: PCP Family Medicine; Referring Provider Otolaryngology; Visit Provider Otolaryngology
DX: K13.70 Unspecified lesions of oral mucosa (principal)
CPT/HCPCS: 70491; Q9967

== ENCOUNTER 2021-05-19 09:59 | Outpatient (RCR) | payer MEDICARE, SELFPAY ==
[2018-12-13 11:07] VITALS: BMI 26.3
[2021-05-19 10:32] LABS: International Normalized Ratio 2.7; Prothrombin Time (Protime)PT. 28.2 SECONDS (11.7-14.9)
== END 2021-05-19 18:00 | disposition home or self-care (01) ==
LOC: LAB 09:59
PROVIDERS: PCP Family Medicine; Referring Provider Internal Medicine Cardiovascular Disease; Visit Provider Internal Medicine Cardiovascular Disease
DX: Z86.73 Personal history of transient ischemic attack (TIA), and cerebral infarction without residual deficits (principal); Z79.01 Long term (current) use of anticoagulants
CPT/HCPCS: 36415; 85610

== ENCOUNTER 2021-05-21 15:19 | Outpatient (CLI) | payer MEDICARE, SELFPAY ==
[2018-12-13 11:07] VITALS: BMI 26.3
--- NOTE | 2021-05-21 | CYST_PTH ---
PATIENT: SALAZAR HOLT LOC: [facility] U#:[id number] AGE/SX: 61/M ROOM: RE05/21/[address]: Dr. Maicol Palma MD : 1960 BED: DIS: 05/21/2021 SPEC #: [id number] RECD: 05/21/21 15:17 STATUS: GENIE MEME #: [id number] KINGS: 05/21/21 00:[address]: Maicol Palma DEPT: SURGICAL PATHOLOGY RECD BY: Karla Hernandez ENTERED: 05/22/21 08:55 SP TYPE: Cyst OTHR DR: Dr. Oral Calderon MD Tissues: CYST Procedures: Surgery Specimen Level III HEADER OPERATION: Excision back cyst PRE-OP DIAGNOSIS: Sebaceous cyst of back TISSUE SUBMITTED: Back tissue MICROSCOPIC DIAGNOSIS Back cyst, excision: Epidermal inclusion cyst. ALIVIA:russ 05/23/2021 MICROSCOPIC DESCRIPTION Slides are reviewed. GROSS DESCRIPTION Received in fixative is one container labeled with the patient's name and designated back. The specimen consists of a previously opened cyst with surrounding tissue measuring 3.5 x 1.5 x 2 cm. Overlying skin ellipse measures 3 x 0.7 cm. Also present in the container are multiple fragments of ordonez-white cheesy material most likely cyst content measuring in aggregate 3.5 x 2 x 1 cm. Clothing Sorter sections are submitted in two cassettes. / SJ:russ 05/22/2021 TC:5 CPT: 63111
== END 2021-05-21 23:59 | disposition home or self-care (01) ==
PROVIDERS: PCP Family Medicine; Visit Provider Surgery
DX: L72.0 Epidermal cyst (principal)
CPT/HCPCS: 88304

== ENCOUNTER 2021-05-30 11:36 | Outpatient (CLI) | payer MEDICARE, SELFPAY ==
[2018-12-13 11:07] VITALS: BMI 26.3
--- NOTE | 2021-05-30 11:38 | RAD_ITS ---
STUDY: X-RAY CHEST REASON FOR EXAM: Male, 61 years old. COPD TECHNIQUE: PA and lateral views of the chest. COMPARISON: 02/07/2021 FINDINGS: Left subclavian dual-lead AICD which is unchanged. The lungs are clear and expanded. There is no demonstrated pleural abnormality. Normal size heart. Normal mediastinum and jovanni. Normal visualized pulmonary arteries. Normal visualized aortic arch and descending thoracic aorta. Normal visualized thoracic spine. Normal visualized ribs, clavicles, and shoulders. There is no demonstrated abnormality of the visualized soft tissue structures of the upper abdomen. RAD/Chest PA and Lateral IMPRESSION: No active disease. Electronically Signed: Jorge Stephens MD at 17:12 EDT ,
== END 2021-05-30 23:59 | disposition home or self-care (01) ==
LOC: MTRAD 11:37
PROVIDERS: PCP Family Medicine; Referring Provider Family Medicine; Visit Provider Family Medicine
DX: J44.1 Chronic obstructive pulmonary disease with (acute) exacerbation (principal)
CPT/HCPCS: 71046

== ENCOUNTER 2021-06-04 10:51 | Outpatient (CLI) | payer MEDICARE, SELFPAY ==
[2018-12-13 11:07] VITALS: BMI 26.3
[2021-06-04 11:30] LABS: BNP,B-Type NATRIURETIC PEPTIDE 80.8 pg/mL (0-100)
[2021-06-04 11:31] LABS: Anion Gap 4 (5-15); BUN 21 mg/dL (7-18); Calcium,Total 9.5 mg/dL (8.5-10.1); Chloride 102 mmol/L (98-107); Creatinine, Serum 1.31 mg/dL (0.70-1.30); EST Glomerular Filtration Rate 60 mL/min (>60); Est Glom Filt Rate - Afr Amer 72 mL/min (>60); Glucose 105 mg/dL (74-106); Potassium 3.8 mmol/L (3.5-5.1); Sodium Level 139 mmol/L (136-145)
== END 2021-06-04 23:59 | disposition home or self-care (01) ==
LOC: LAB 10:53
PROVIDERS: PCP Family Medicine; Referring Provider Nurse Practitioner Family; Visit Provider Nurse Practitioner Family
DX: I50.22 Chronic systolic (congestive) heart failure (principal); I11.0 Hypertensive heart disease with heart failure; I71.4 Abdominal aortic aneurysm, without rupture; I25.5 Ischemic cardiomyopathy
CPT/HCPCS: 36415; 80048; 83880

== ENCOUNTER 2021-06-05 10:05 | Emergency (ER) | payer MEDICARE, SELFPAY ==
[2018-12-13 11:07] VITALS: BMI 26.3
[2021-06-05 10:07] VITALS: BP 132/73; PULSE 94; RESP 17; TEMP 36.5; O2SAT 97; BMI 29.7
--- NOTE | 2021-06-05 10:37 | EKG12_ITS ---
Test Reason : CP Blood Pressure : / mmHG Vent. Rate : 091 BPM Atrial Rate : 091 BPM P-R Int : 156 ms QRS Dur : 132 ms QT Int : 410 ms P-R-T Axes : 039 111 069 degrees QTc Int : 504 ms Sinus rhythm with occasional Premature ventricular complexes Right bundle branch block Anterolateral infarct , age undetermined, cannot be excluded Abnormal ECG Confirmed by ARDHA SMART, ALISON ([id number]), news videotape editor MARILUZ PAGE ([id number]) on 06/10/2021 8:47:24 AM Referred By: DEBBY Confirmed By:ALISON GARCIA MD
--- NOTE | 2021-06-05 10:38 | ED.VIS.DYS ---
HPI History of Present Illness Chief Complaint: Cough Informant: patient Narrative Narrative: Patient is a 61-year-old male with extensive cardiac history including coronary artery disease status postcardiac bypass, ischemic cardiomyopathy, chronic heart failure with reduced ejection fraction, history of stroke, hypertension, hyperlipidemia, AAA and obstructive sleep apnea/COPD on chronic Coumadin therapy presenting with flulike symptoms. Patient saw his primary care doctor on Wednesday and was put on a course of prednisone and doxycycline. He states he started to feel better and then yesterday evening he started feel worse. He is not having worsening cough, difficulty breathing, sputum production, chills, watery eyes, chest discomfort, pain rating to his left shoulder, sore throat, dry heaves and diarrhea. Patient states his last INR check was began of the month. He states he has had a cough for about 2 weeks but everything worsened yesterday. He was on a cruise in April and his fianc?e is also been sick. He states that since he is a heart patient when he gets sick he is much worse. He did see his admitting manager yesterday who is monitoring his AAA but no other acute changes reported by the patient. His admitting manager is Dr. Ramirez. [facility] Medical History Abdominal aortic aneurysm (AAA) Abnormal PFT Anxiety Atherosclerosis of coronary artery bypass graft of [place] heart with angina pectoris Chronic HFrEF (heart failure with reduced ejection fraction) COPD (chronic obstructive pulmonary disease) Depression Depression with anxiety Descending aortic aneurysm Esophageal stricture Essential (primary) hypertension GERD (gastroesophageal reflux disease) History of CVA (cerebrovascular accident) (02/07/21) History of non-ST elevation myocardial infarction (NSTEMI) (02/07/21) HLD (hyperlipidemia) Hypersomnia Hypomagnesemia syndrome Ischemic cardiomyopathy Left lower lobe pulmonary nodule Neuropathic pain Nicotine dependence LETTY (obstructive sleep apnea) Osteoporosis PAF (paroxysmal atrial fibrillation) Peripheral vascular occlusive disease Rheumatoid arthritis Smoking greater than 40 pack years Stroke TIA (transient ischemic attack) Tinnitus Home Medications magnesium oxide 400 mg PO DAILY 11/07/18 [History Last Taken 04/20/20] pantoprazole 40 mg tablet,delayed release 40 mg PO BID 11/15/18 [History Last Taken 05/20/20] amitriptyline 25 mg tablet 25 mg PO QHS 08/17/19 [History Last Taken 04/20/20] alendronate 70 mg tablet 70 mg PO QWEEK tablet 03/15/20 [History Last Taken 04/15/20] gabapentin 600 mg tablet 600 mg PO 4X/DAY tablet 03/15/20 [History Last Taken 05/20/20] empagliflozin 10 mg tablet 10 mg PO DAILY 09/13/20 [History Last Taken Unknown] furosemide 40 mg tablet 40 mg PO DAILY tab 09/13/20 [History Last Taken Unknown] docusate sodium [Colace] 50 mg PO DAILY 10/21/20 [History Last Taken Unknown] lisinopril 5 mg tablet 5 mg PO DAILY 11/11/20 [History Last Taken Unknown] potassium chloride 20 mEq tablet,extended release 20 meq PO DAILY 11/11/20 [History Last Taken Unknown] clopidogrel 75 mg tablet 75 mg PO DAILY #90 tab 11/21/20 [Rx Last Taken Unknown] atorvastatin 80 mg tablet 80 mg PO QHS #90 tab 02/04/21 [Rx Last Taken Unknown] metoprolol succinate 50 mg tablet,extended release 24 hr 50 mg PO BID #180 tab 03/06/21 [Rx Last Taken Unknown] tramadol 50 mg tablet 50 mg PO Q8H PRN tab 03/06/21 [History Last Taken Unknown] isosorbide mononitrate 60 mg tablet,extended release 24 hr 60 mg PO BID #180 tab 03/19/21 [Rx Last Taken Unknown] nitroglycerin 0.4 mg sublingual tablet 0.4 mg SUBLINGUAL Q5M PRN #100 tab 03/19/21 [Rx Last Taken Unknown] ipratropium 0.5 mg-albuterol 3 mg (2.5 mg base)/3 mL nebulization soln 3 ml INHALATION Q4H PRN #180 ml 03/25/21 [Rx Last Taken Unknown] doxycycline hyclate 100 mg tablet 100 mg PO BID tab 06/04/21 [History Last Taken Unknown] ergocalciferol (vitamin D2) 1,250 mcg (50,000 unit) capsule 50,000 unit PO QWEEK cap 06/04/21 [History Last Taken Unknown] finasteride 5 mg tablet 5 mg PO DAILY tab 06/04/21 [History Last Taken Unknown] warfarin 4 mg tablet 4 mg PO DAILY tab 06/04/21 [History Last Taken Unknown] ondansetron 4 mg PO Q6H PRN #14 tab 06/05/21 [Rx Last Taken Unknown] oxycodone 5 mg PO Q8H PRN 3 Days #12 cap 06/05/21 [Rx Last Taken Unknown] prednisone 40 mg PO DAILY #8 tab 06/05/21 [Rx Last Taken Unknown] Allergy/AdvReac Type Severity Reaction Status Date / Time oxycodone [From Percocet] Allergy Severe dry heaves Verified 06/05/21 10:06 latex Allergy Unknown unknown Verified 06/05/21 10:06 acetaminophen Allergy Anaphylaxis Verified 06/05/21 10:06 [From Darvocet-N] diphenhydramine Allergy Rash Verified 06/05/21 10:06 [From Benadryl] NSAIDS (Non-Steroidal Allergy Anaphylaxis Verified 06/05/21 10:06 Anti-Inflamma Penicillins Allergy Anaphylaxis Verified 06/05/21 10:06 propoxyphene Allergy Anaphylaxis Verified 06/05/21 10:06 [From Darvocet-N] hydrocodone [From Vicodin] AdvReac Mild Nausea/Vom/ Verified 06/05/21 10:06 Diarrhea peppercorn AdvReac NEEDS Uncoded 06/05/21 10:06 FOLLOW-UP Family History Sister CVA (cerebral vascular accident) Heart disease Hypertension High cholesterol Diabetes Cancer lung cancer Father Arthritis Cancer myeloma Mother Arthritis Cancer Brain cancer Surgical History H/O coronary artery bypass surgery (01/28/12) History of angioplasty of peripheral vessel (01/2015) History of coronary angioplasty (08/09/20) History of coronary artery stent placement (10/22/19) History of implantable cardiac defibrillator (ICD) (09/15/17) History of left heart catheterization (05/20/20) History of left inguinal hernia repair S/P femoral-tibial bypass (12/28/18) Social History household members: significant other Smoking Status: Current every day smoker tobacco type: cigarettes Tobacco: How many years used: 40 quit status: considering quitting alcohol intake: never substance use type: does not use caffeine: Yes (cola) Type: carbonated beverages Number of servings: 4 ROS ROS ED Constitutional Constitutional ED: Reports chills; Denies fever(s) Eyes Eyes: Reports blurry vision; Denies change in vision ENT ENT ED: Reports rhinorrhea and sore throat; Denies ear pain Cardiovascular Cardiovascular: Reports chest pain; Denies orthopnea or palpitations Respiratory/Chest Respiratory/Chest: Reports cough, dyspnea and sputum; Denies orthopnea Gastrointestinal Gastrointestinal: Reports diarrhea and nausea; Denies abdominal pain, constipation, melena or vomiting Genitourinary Genitourinary ED: Denies dysuria or hematuria Musculoskeletal Musculoskeletal: Reports arthralgias and myalgias Integumentary Denies rash Neurologic Neurologic: Reports headache(s); Denies weakness Psychiatric Psychiatric: Denies depression EXAM Physical Exam Const Vital Signs: 06/05/21 10:07 06/05/21 10:53 06/05/21 12:00 Temperature 97.7 F L 98.4 F Temperature Source Temporal Temporal Pulse Rate 94 89 Respiratory Rate 17 16 Respiratory Effort Normal Non-Labored Respiratory Depth Normal Respiratory Pattern Normal Blood Pressure 132/73 H 115/78 Blood Pressure Mean 92 90 Pulse Ox 97 97 Oxygen Delivery Method Room Air Room Air Room Air 06/05/21 13:00 Temperature Temperature Source Pulse Rate 77 Respiratory Rate 20 H Respiratory Effort Respiratory Depth Respiratory Pattern Blood Pressure Blood Pressure Mean Pulse Ox Oxygen Delivery Method Positive well nourished and well developed General Appearance ED: well developed and NAD HEENT Reports moist mucous membranes atraumatic Eyes PERRL and EOMs intact bilaterally Neck supple and no JVD Chest Wall Chest Narrative: Diffuse chest wall tenderness to palpation Resp normal respiratory effort and clear to auscultation bilaterally Resp Narrative: Persistent deep cough, nonproductive Cardio regular rate, regular rhythm and no murmurs GI non-tender and non-distended Palpation: soft Neuro oriented x3 Sensorium / Orientation: alert Speech: speech normal Motor Exam: general weakness Psych mental status grossly normal Skin Lesions: no lesions Rashes: no rashes MDM MDM MDM Narrative Medical decision making narrative: Patient evaluated for cough and myalgias. He appears nontoxic. Does have significant medical history. Work-up including for pneumonia, CHF and ACS is obtained. He is therapeutic on his INR of 3.6 and I do not suspect PE. He has no significant laboratory abnormalities. X-ray attempt by myself as well as radiology does not show any acute process. BNP is normal. I do not think this is a decompensated heart failure. High sensitive troponin is normal. Patient does not have acute EKG changes. I suspect patient just has lingering bronchitis. He is given a DuoNeb with improvement of his cough and symptoms. He is started again on steroid burst. He is given a short course of [place] to help with his chest wall pain and shoulder pain associated with all of his coughing. Patient counseled on return precautions. Lab Data Attestation: I reviewed the patient's lab results. Labs: Laboratory Results - last 24 hr 06/05/21 06/05/21 06/05/21 10:45 10:45 10:45 WBC 8.4 RBC 5.99 Hgb 17.7 H Hct 53.7 MCV 89.6 MCH 29.5 MCHC 33.0 RDW Std Deviation 58.3 H RDW Coeff of Jack 18.3 H Plt Count 188 MPV 9.9 Immature Gran % (Auto) 1.000 H Neut % (Auto) 62.3 Lymph % (Auto) 22.9 [place] % (Auto) 6.0 Eos % (Auto) 5.9 H Baso % (Auto) 1.9 H Absolute Neuts (auto) 5.2 Absolute Lymphs (auto) 1.92 Nucleated RBC % 0 PT 35.3 H INR 3.6 Sodium 138 Potassium 4.0 Chloride 104 Carbon Dioxide 29.0 Anion Gap 5 BUN 22 H Creatinine 1.28 Estim Creat Clear Calc 58.10 Est GFR (MDRD) Af Amer 74 Est GFR (MDRD) Non-Af 61 BUN/Creatinine Ratio 17.2 Glucose 106 Lactic Acid Calcium 9.0 Total Bilirubin 0.60 AST 19 ALT 34 Alkaline Phosphatase 93 Total Creatine Kinase Troponin I High Sens 10 B-Natriuretic Peptide Total Protein 7.1 Albumin 3.5 Globulin 3.6 Albumin/Globulin Ratio 1.0 Urine Color Urine Clarity Urine pH Ur Specific [place] Urine Protein Urine Glucose (UA) Urine Ketones Urine Occult Blood Urine Nitrite Urine Bilirubin Urine Urobilinogen Ur Leukocyte Esterase Urine RBC Urine WBC Ur Squamous Epith Cells Urine Bacteria Urine Mucus 06/05/21 06/05/21 06/05/21 10:45 10:45 10:45 WBC RBC Hgb Hct MCV MCH MCHC RDW Std Deviation RDW Coeff of Jack Plt Count MPV Immature Gran % (Auto) Neut % (Auto) Lymph % (Auto) [place] % (Auto) Eos % (Auto) Baso % (Auto) Absolute Neuts (auto) Absolute Lymphs (auto) Nucleated RBC % PT INR Sodium Potassium Chloride Carbon Dioxide Anion Gap BUN Creatinine Estim Creat Clear Calc Est GFR (MDRD) Af Amer Est GFR (MDRD) Non-Af BUN/Creatinine Ratio Glucose Lactic Acid 1.8 Calcium Total Bilirubin AST ALT Alkaline Phosphatase Total Creatine Kinase 54 Troponin I High Sens B-Natriuretic Peptide 39.8 Total Protein Albumin Globulin Albumin/Globulin Ratio Urine Color Urine Clarity Urine pH Ur Specific [place] Urine Protein Urine Glucose (UA) Urine Ketones Urine Occult Blood Urine Nitrite Urine Bilirubin Urine Urobilinogen Ur Leukocyte Esterase Urine RBC Urine WBC Ur Squamous Epith Cells Urine Bacteria Urine Mucus 06/05/21 06/05/21 12:05 12:23 WBC RBC Hgb Hct MCV MCH MCHC RDW Std Deviation RDW Coeff of Jack Plt Count MPV Immature Gran % (Auto) Neut % (Auto) Lymph % (Auto) [place] % (Auto) Eos % (Auto) Baso % (Auto) Absolute Neuts (auto) Absolute Lymphs (auto) Nucleated RBC % PT INR Sodium Potassium Chloride Carbon Dioxide Anion Gap BUN Creatinine Estim Creat Clear Calc Est GFR (MDRD) Af Amer Est GFR (MDRD) Non-Af BUN/Creatinine Ratio Glucose Lactic Acid Calcium Total Bilirubin AST ALT Alkaline Phosphatase Total Creatine Kinase Troponin I High Sens 7 B-Natriuretic Peptide Total Protein Albumin Globulin Albumin/Globulin Ratio Urine Color Yellow Urine Clarity Clear Urine pH 6.0 Ur Specific [place] 1.010 Urine Protein Negative Urine Glucose (UA) 250 H Urine Ketones Negative Urine Occult Blood Negative Urine Nitrite Negative Urine Bilirubin Negative Urine Urobilinogen Normal Ur Leukocyte Esterase Negative Urine RBC 0 SEEN Urine WBC 0 SEEN Ur Squamous Epith Cells 0 SEEN Urine Bacteria 0 SEEN Urine Mucus 0 SEEN Radiography Chest X-Ray - ED: 1 View, Read by ED Physician, Read by Radiologist and No Acute Disease Diagnostic Testing: Clinical Impression(s) from Imaging Studies Chest X-Ray 06/05/21 11:05 IMPRESSION: No radiographic evidence of acute cardiopulmonary disease. Electronically Signed: Bear Pappas MD at 11:24 EDT Reading Location ID and State: [facility] / [place] Tel , Service support , Rhythm Strip Rhythm Strip: Sinus Rhythm Rate: 91 Ectopy: PVC(s) EKG Initial EKG: Attestation: I personally reviewed and interpreted this EKG as follows: Interpretation: Sinus Rhythm Comments: Normal sinus rhythm at a rate of 91 Occasional PVC Normal TX and QRS QTC 504 Right bundle branch block Nonspecific ST changes No change compared to prior EKG on 02/07/2021 Prior EKG tracings: available for review Prior: Unchanged Discharge Plan Triage Chief Complaint: Cough ED Provider: Rosy Shirley Dx/Rx/DC Orders Clinical Impression: Bronchitis, Left shoulder pain Instructions: ED Arthralgia, ED Bronchitis with Wheezing (Adult) Prescriptions: New prednisone 20 mg tablet 40 mg PO DAILY Qty: 8 RF: 0 oxycodone 5 mg capsule 5 mg PO Q8H PRN (Reason: pain) 3 Days Qty: 12 RF: 0 ondansetron 4 mg tablet,disintegrating 4 mg PO Q6H PRN (Reason: nausea and vomiting) Qty: 14 RF: 0 No Action pantoprazole 40 mg tablet,delayed release (DR/EC) 40 mg PO BID RF: 0 gabapentin 600 mg tablet 600 mg PO 4X/DAY RF: 0 amitriptyline 25 mg tablet 25 mg PO QHS RF: 0 alendronate 70 mg tablet 70 mg PO QWEEK RF: 0 Jardiance 10 mg tablet 10 mg PO DAILY RF: 0 lisinopril 5 mg tablet 5 mg PO DAILY RF: 0 potassium chloride 20 mEq tablet extended release 20 meq PO DAILY RF: 0 ipratropium-albuterol 0.5 mg-3 mg(2.5 mg base)/3 mL solution for nebulization 3 ml inhalation Q4H PRN (Reason: shortness of breath or wheezing) Qty: 180 RF: 3 tramadol 50 mg tablet 50 mg PO Q8H PRNRF: 0 metoprolol succinate 50 mg tablet extended release 24 hr 50 mg PO BID Qty: 180 RF: 3 ergocalciferol (vitamin D2) 1,250 mcg (50,000 unit) capsule 50,000 unit PO QWEEK RF: 0 doxycycline hyclate 100 mg tablet 100 mg PO BID RF: 0 warfarin 4 mg tablet 4 mg PO DAILY RF: 0 finasteride 5 mg tablet 5 mg PO DAILY RF: 0 magnesium oxide 400 MG tablet 400 mg PO DAILY RF: 0 furosemide 40 mg tablet 40 mg PO DAILY RF: 0 Colace 50 mg Capsule 50 mg PO DAILY RF: 0 clopidogrel 75 mg tablet 75 mg PO DAILY Qty: 90 RF: 3 atorvastatin 80 mg tablet 80 mg PO QHS Qty: 90 RF: 3 nitroglycerin 0.4 mg tablet, sublingual 0.4 mg sublingual Q5M PRN (Reason: Pain) Qty: 100 RF: 3 isosorbide mononitrate 60 mg tablet extended release 24 hr 60 mg PO BID Qty: 180 RF: 3 Primary Care Provider: Oral Calderon Referrals: Oral Calderon MD [Primary Care Provider] - Activity Restrictions/Additional Instructions: You can use [id number] cough drops or throat sprays to help with your sore throat. Continue taking the doxycycline prescribed by your primary care doctor. Disposition Disposition: Home, Self Care Discharge Date/Time: 06/05/21 13:52
[2021-06-05 10:53] VITALS: O2SAT 95
[2021-06-05 11:01] LABS: Absolute Lymphocyte Count 1.92 X10^3/uL (0.83-4.51); Absolute Neutrophil Count 5.2 X10^3/uL (2.0-7.7); Basophil# 0.16 X10^3/uL; Basophil% 1.9 % (0-1); Eosinophil# 0.49 X10^3/uL; Eosinophils% 5.9 % (0-5); Hematocrit 53.7 % (40-54); Hemoglobin 17.7 g/dL (13.0-16.5); Lymphocyte # 1.92 X10^3/ul (0.83-4.51); Lymphocyte % 22.9 % (19-41); Mean Corpuscular Hgb 29.5 pg (27.0-32.0); Mean Corpuscular Volume 89.6 fL (80-94); Mean Platelet Vol. 9.9 fl (6.2-12.0); NRBC Flagged by Analyzer 0 % (0-5); Neutrophil # 5.22 X10^3/uL (2.7-7.7); Neutrophil % 62.3 % (47-70); Platelet Count 188 K/mm3 (150-450); RBC Distribution Width CV 18.3 % (11.6-14.6); RBC Distribution Width SD 58.3 fl (35.1-43.9); Red Blood Count 5.99 M/mm3 (4.6-6.2); White Blood Count 8.4 K/mm3 (4.4-11.0)
--- NOTE | 2021-06-05 11:05 | RAD_ITS ---
INDICATION: cough, sob EXAMINATION/TECHNIQUE: X-RAY - XR Chest 1 View COMPARISON: 05/30/2021. FINDINGS: LINES/DEVICES: AICD visualized in the left chest with 2 leads in the heart. LUNGS: No consolidation, edema or effusion. No pneumothorax. MEDIASTINUM AND CARDIOVASCULAR STRUCTURES: Cardiac silhouette not enlarged. Atherosclerotic calcifications visualized in the coronary vessels. BONES AND SOFT TISSUES: Mild degenerative bone changes are seen.. RAD/Chest 1 View (Portable) IMPRESSION: No radiographic evidence of acute cardiopulmonary disease. Electronically Signed: Bear Pappas MD at 11:24 EDT ,
[2021-06-05 11:09] LABS: International Normalized Ratio 3.6; Prothrombin Time (Protime)PT. 35.3 SECONDS (11.7-14.9)
[2021-06-05 11:19] LABS: AST(SGOT) 19 U/L (15-37); Alanine Aminotransfer ALT/SGPT 34 U/L (16-61); Albumin, Serum 3.5 g/dL (3.2-5.0); Alkaline Phosphatase 93 U/L (45-117); Anion Gap 5 (5-15); BUN 22 mg/dL (7-18); BUN/Creat Ratio 17.2 RATIO (10-20); Chloride 104 mmol/L (98-107); Creatinine, Serum 1.28 mg/dL (0.70-1.30); EST Glomerular Filtration Rate 61 mL/min (>60); Est Glom Filt Rate - Afr Amer 74 mL/min (>60); Globulin 3.6 g/dL (2.2-4.2); Glucose 106 mg/dL (74-106); Protein, Total 7.1 g/dL (6.4-8.2); Sodium Level 138 mmol/L (136-145); Troponin-I HS 10 pg/mL (3.0-78.0)
[2021-06-05 11:20] LABS: BNP,B-Type NATRIURETIC PEPTIDE 39.8 pg/mL (0-100); CPK Total, Creatine Kinase 54 U/L (39-308)
[2021-06-05 11:24] LABS: Lactic Acid 1.8 mmol/L (0.4-1.9)
[2021-06-05 12:00] VITALS: BP 115/78; PULSE 89; RESP 16; TEMP 36.9; O2SAT 97
[2021-06-05 12:05] VITALS: O2SAT 98
[2021-06-05 12:08] LABS: Bacteria 0 SEEN /hpf (None Seen); Mucous, Urine 0 SEEN /hpf (<or=2+); Red Blood Cells-Urine 0 SEEN /hpf (0-5); Squamous Epithelial Cells - UA 0 SEEN /hpf (0-5); White Blood Cells 0 SEEN /hpf (0-5)
[2021-06-05 12:10] LABS: Color, Urine Yellow (Yellow); Glucose, Dipstick 250 mg/dl (Normal); Ketone-Dipstick Negative (Negative); Leukocyte Esterase-Dipstick Negative /ul (Negative); Nitrite-Dipstick Negative (Negative); Occult Blood-Urine Negative /ul (Negative); Protein-Dipstick Negative (Negative); Urine Bilirubin Dipstick Negative (Negative); Urine Clarity Clear (Clear); Urine Urobilinogen Normal (Normal)
[2021-06-05] MEDS: predniSONE 20 MG Tablet 60 MG PO (12:40)
[2021-06-05] MEDS: Ondansetron ODT 4 MG Tablet PO (12:40)
[2021-06-05 12:54] LABS: Troponin-I HS 7 pg/mL (3.0-78.0)
[2021-06-05] MEDS: Ipratropium/Albuterol Sulfate 3 ML AMPUL.NEB INHALATION (12:59)
[2021-06-05 13:00] VITALS: PULSE 77; RESP 20
== END 2021-06-05 13:52 | disposition home or self-care (01) ==
PROVIDERS: Emergency Provider Emergency Medicine; PCP Family Medicine; Visit Provider Emergency Medicine
DX: J40 Bronchitis, not specified as acute or chronic (principal); J44.0 Chronic obstructive pulmonary disease with (acute) lower respiratory infection; I11.0 Hypertensive heart disease with heart failure; I50.22 Chronic systolic (congestive) heart failure; I25.5 Ischemic cardiomyopathy; I25.10 Atherosclerotic heart disease of native coronary artery without angina pectoris; G47.33 Obstructive sleep apnea (adult) (pediatric); R19.7 Diarrhea, unspecified; E78.5 Hyperlipidemia, unspecified; M25.512 Pain in left shoulder; I25.2 Old myocardial infarction; F17.210 Nicotine dependence, cigarettes, uncomplicated; Z79.01 Long term (current) use of anticoagulants; Z79.02 Long term (current) use of antithrombotics/antiplatelets; Z79.52 Long term (current) use of systemic steroids; Z79.899 Other long term (current) drug therapy; Z95.1 Presence of aortocoronary bypass graft; Z86.73 Personal history of transient ischemic attack (TIA), and cerebral infarction without residual deficits
CPT/HCPCS: 71045; 80053; 81001; 82550; 83605; 83880; 84484; 85025; 85610; 87428; 93005; 94640; 99285

== ENCOUNTER → 2021-06-06 | Outpatient (CLI) | payer MEDICARE, SELFPAY ==
[2018-12-13 11:07] VITALS: BMI 26.3
--- NOTE | 2021-06-06 | LES_PTH ---
PATIENT: SALAZAR HOLT LOC: [facility] U#:[id number] AGE/SX: 61/M ROOM: RE06/06/[address]: Dr. Maicol Palma MD : 1960 BED: DIS: 06/06/2021 SPEC #: [id number] RECD: 06/06/21 12:55 STATUS: GENIE MEME #: [id number] KINGS: 06/06/21 00:[address]: Maicol Palma DEPT: SURGICAL PATHOLOGY RECD BY: Mekhi Wilson ENTERED: 06/06/21 12:55 SP TYPE: Lesion OTHR DR: Dr. Oral Calderon MD Tissues: Skin of face, NOS Procedures: Surgery Specimen Level IV HEADER OPERATION: Excision skin lesion right face PRE-OP DIAGNOSIS: Skin lesion face TISSUE SUBMITTED: Skin lesion right face MICROSCOPIC DIAGNOSIS Skin lesion right face, excision: Benign vascular proliferation, consistent with hemangioma, completely excised. Solar elastosis. SJ:russ 06/09/2021 MICROSCOPIC DESCRIPTION Slides are reviewed. GROSS DESCRIPTION Received in fixative is one container labeled with the patient's name and designated skin lesion right face. The specimen consists of a piece of ordonez-white skin ellipse measuring 1.5 x 0.5 cm and up to 0.5 cm in thickness. The specimen is inked, serially sectioned and submitted entirely in one cassette. / ALIVIA:russ 06/06/2021 TC:1 CPT: 85099
== END | disposition home or self-care (01) ==
LOC: LABSPEC 11:24
PROVIDERS: PCP Family Medicine; Visit Provider Surgery
DX: L57.8 Other skin changes due to chronic exposure to nonionizing radiation (principal)
CPT/HCPCS: 88305

== ENCOUNTER 2021-06-18 15:13 | Outpatient (RCR) | payer MEDICARE, SELFPAY ==
[2018-12-13 11:07] VITALS: BMI 26.3
[2021-06-18 17:26] LABS: International Normalized Ratio 2.4; Prothrombin Time (Protime)PT. 26.2 SECONDS (11.7-14.9)
== END 2021-06-18 18:00 | disposition home or self-care (01) ==
LOC: LAB 15:13
PROVIDERS: PCP Family Medicine; Referring Provider Internal Medicine Cardiovascular Disease; Visit Provider Internal Medicine Cardiovascular Disease
DX: Z86.73 Personal history of transient ischemic attack (TIA), and cerebral infarction without residual deficits (principal); Z79.01 Long term (current) use of anticoagulants
CPT/HCPCS: 36415; 85610

== ENCOUNTER → 2021-06-24 | Outpatient (CLI) | payer MEDICARE, SELFPAY ==
[2018-12-13 11:07] VITALS: BMI 26.3
--- NOTE | 2021-06-24 07:26 | CT_ITS ---
STUDY: CTA CHEST REASON FOR EXAM: Male, 61 years old. Evaluate AAA- Last 2020 RADIATION DOSAGE (If Supplied By Facility): CTDIvol = ( 16.22 ) mGy, DLP = ( 762.02 ) mGycm TECHNIQUE: The examination was performed with the intravenous administration of IV 100mL Isovue-300. Post-processing of the angiographic images was performed, with multiplanar reformation and 3D reconstruction. Individualized dose optimization techniques were used for this CT. COMPARISON: Comparison is made with prior study dated 02/07/2021. FINDINGS: Normal enhancement of the main pulmonary artery and right and left pulmonary arteries. Normal enhancement of the bilateral peripheral pulmonary arteries. There is no demonstrated pulmonary embolism. There is atherosclerotic calcification of the aortic arch with tortuosity. Plaque calcification of the descending thoracic aorta. Mural thrombus is seen throughout. This is unchanged. Stable aneurysmal dilatation of the descending thoracic aorta. There is no demonstrated aortic dissection. There are calcifications of the coronary arteries. A dual-chamber pacemaker is seen. There are visualized mediastinal lymph nodes, which are within normal size limits, and with normal morphology. Normal hilar regions. Normal visualized trachea and bronchi. The lungs are well expanded. Stable 6 mm noncalcified nodule in the peripheral lateral aspect of the left lower lobe as seen on axial image #89. Normal pleura. Normal chest wall structures. Normal osseous structures. Small gallstone. Mural thrombus seen in the abdominal aorta with the focal tight stenosis in the infrarenal abdominal aorta. There is evidence of a 3.7 cm abdominal aortic aneurysm. CT/CTA Chest W/WO Contrast IMPRESSION: Stable examination. Electronically Signed: Geovany Spring MD at 10:34 EDT ,
== END | disposition home or self-care (01) ==
LOC: CT 07:25
PROVIDERS: PCP Family Medicine; Referring Provider Nurse Practitioner Family; Visit Provider Nurse Practitioner Family
DX: I71.4 Abdominal aortic aneurysm, without rupture (principal)
CPT/HCPCS: 71275; Q9967

== ENCOUNTER → 2021-06-25 | Outpatient (CLI) | payer MEDICARE, SELFPAY ==
[2018-12-13 11:07] VITALS: BMI 26.3
[2021-06-25 17:47] LABS: Absolute Lymphocyte Count 2.38 X10^3/uL (0.83-4.51); Absolute Neutrophil Count 4.1 X10^3/uL (2.0-7.7); Basophil# 0.13 X10^3/uL; Basophil% 1.7 % (0-1); Eosinophil# 0.45 X10^3/uL; Hematocrit 51.7 % (40-54); Hemoglobin 17.1 g/dL (13.0-16.5); Lymphocyte # 2.38 X10^3/ul (0.83-4.51); Mean Corp Hgb Conc 33.1 g/dL (32-36); Mean Corpuscular Hgb 29.5 pg (27.0-32.0); Mean Corpuscular Volume 89.3 fL (80-94); Mean Platelet Vol. 10.6 fl (6.2-12.0); Monocyte# 0.35 X10^3/uL; Monocyte% 4.7 % (0-10); NRBC Flagged by Analyzer 0 % (0-5); Neutrophil # 4.08 X10^3/uL (2.7-7.7); Neutrophil % 54.9 % (47-70); Platelet Count 218 K/mm3 (150-450); RBC Distribution Width CV 17.9 % (11.6-14.6); RBC Distribution Width SD 56.6 fl (35.1-43.9); Red Blood Count 5.79 M/mm3 (4.6-6.2); White Blood Count 7.4 K/mm3 (4.4-11.0)
[2021-06-25 18:10] LABS: Hemoglobin A1c 6.2 % (3.8-5.6)
[2021-06-25 18:11] LABS: ALB/GLOB Ratio 0.9 RATIO (0.9-2.4); AST(SGOT) 25 U/L (15-37); Alanine Aminotransfer ALT/SGPT 37 U/L (16-61); Albumin, Serum 3.6 g/dL (3.2-5.0); Alkaline Phosphatase 94 U/L (45-117); Anion Gap 8 (5-15); BUN 21 mg/dL (7-18); BUN/Creat Ratio 17.9 RATIO (10-20); Calcium,Total 9.3 mg/dL (8.5-10.1); Chloride 103 mmol/L (98-107); Cholesterol 162 mg/dL (200); Creatinine, Serum 1.17 mg/dL (0.70-1.30); EST Glomerular Filtration Rate 68 mL/min (>60); Est Glom Filt Rate - Afr Amer 82 mL/min (>60); Glucose 105 mg/dL (74-106); High Density Lipoprotein 29 mg/dL; Phosphorus 2.8 mg/dL (2.5-4.9); Potassium 4.1 mmol/L (3.5-5.1); Protein, Total 7.6 g/dL (6.4-8.2); Sodium Level 136 mmol/L (136-145); Thyroid Stim Hormone (TSH) 0.54 uIU/mL (0.358-3.74); Triglycerides 305 mg/dL; Very Low Density Lipoprotein 61 mg/dL (5-40)
[2021-06-25 19:01] LABS: Microalbumin,Random Urine < 5.0 mg/L (NO RANGE EST.); Protein, Urine (Random) < 6.0 mg/dL (<11.9)
[2021-06-26 08:28] LABS: PTHIN 119.5 pg/mL (18.4-80.1)
== END | disposition home or self-care (01) ==
LOC: MFPLAB 14:30
PROVIDERS: PCP Family Medicine; Visit Provider Family Medicine
DX: E11.22 Type 2 diabetes mellitus with diabetic chronic kidney disease (principal); N18.30 Chronic kidney disease, stage 3 unspecified; E78.1 Pure hyperglyceridemia
CPT/HCPCS: 36415; 80053; 80061; 82043; 82570; 83036; 83970; 84100; 84156; 84443; 85025

== ENCOUNTER 2021-07-22 12:29 | Outpatient (RCR) | payer MEDICARE, SELFPAY ==
[2018-12-13 11:07] VITALS: BMI 26.3
[2021-07-22 13:18] LABS: International Normalized Ratio 2.6; Prothrombin Time (Protime)PT. 27.5 SECONDS (11.7-14.9)
== END 2021-07-22 23:59 | disposition home or self-care (01) ==
LOC: LAB 12:29
PROVIDERS: PCP Family Medicine; Referring Provider Internal Medicine Cardiovascular Disease; Visit Provider Internal Medicine Cardiovascular Disease
DX: Z79.01 Long term (current) use of anticoagulants (principal); Z86.73 Personal history of transient ischemic attack (TIA), and cerebral infarction without residual deficits
CPT/HCPCS: 36415; 85610

== ENCOUNTER → 2021-07-29 | Outpatient (CLI) | payer MEDICARE, SELFPAY ==
[2018-12-13 11:07] VITALS: BMI 26.3
--- NOTE | 2021-07-29 12:25 | PFT ---
INTRODUCTION: The patient is a 61-year-old male that presents for pulmonary function studies secondary to a diagnosis of tobacco dependency. Respiratory therapy reported good patient effort. Bronchodilators were used during testing. INTERPRETATION: Forced expiration spirometry demonstrates no evidence of a large airways obstructive ventilatory defect. There was no significant response to aerosolized bronchodilators. Spirograms are of good quality and plateau normally. Body plethysmography was performed and revealed an elevated RV to 158% of predicted. Diffusing capacity by single breath CO is within normal limits. IMPRESSION: Grossly normal pulmonary function studies.
== END | disposition home or self-care (01) ==
PROVIDERS: PCP Family Medicine; Referring Provider Internal Medicine Critical Care Medicine; Visit Provider Internal Medicine Critical Care Medicine
DX: Z87.891 Personal history of nicotine dependence (principal)
CPT/HCPCS: 94060; 94726; 94729

== ENCOUNTER 2021-08-19 13:06 | Outpatient (RCR) | payer MEDICARE, SELFPAY ==
[2018-12-13 11:07] VITALS: BMI 26.3
[2021-08-19 13:51] LABS: International Normalized Ratio 3.5; Prothrombin Time (Protime)PT. 34.5 SECONDS (11.7-14.9)
== END 2021-09-14 02:54 | disposition home or self-care (01) ==
LOC: LAB 13:06
PROVIDERS: PCP Family Medicine; Referring Provider Internal Medicine Cardiovascular Disease; Visit Provider Internal Medicine Cardiovascular Disease
DX: Z79.01 Long term (current) use of anticoagulants (principal); Z86.73 Personal history of transient ischemic attack (TIA), and cerebral infarction without residual deficits
CPT/HCPCS: 36415; 85610

== ENCOUNTER 2021-08-27 22:00 | Emergency (ER) | payer MEDICARE, SELFPAY ==
[2018-12-13 11:07] VITALS: BMI 26.3
[2021-08-27 22:01] VITALS: BP 132/90; PULSE 88; RESP 22; TEMP 36.4; O2SAT 98; BMI 30.4
--- NOTE | 2021-08-27 22:34 | CT_ITS ---
INDICATION: Upper chest pain. Mid abdominal pain radiating into the flanks. History of thoracic aneurysm. EXAMINATION: CTA CHEST, ABDOMEN AND PELVIS WITH CONTRAST - TECHNIQUE: A CTA of the chest, abdomen, and pelvis is obtained with sagittal and coronal reconstructed MIP views. Three-dimensional surface rendered sequence of the thoracic and abdominal aorta was obtained. A radiation dose optimization technique was used for this scan. 100 mL of Isovue-370. Oral contrast: None. COMPARISON: CTA of the chest, 06/24/2021. FINDINGS: CT CHEST: THORACIC AORTA: Atherosclerotic tortuosity of the thoracic aorta. There is a fusiform aneurysm of the proximal descending aorta with a maximum diameter 4.5 x 3.9 cm. There is no evidence of aortic dissection. ABDOMINAL AORTA: Atherosclerotic changes of the abdominal aorta. There is approximately 80% stenosis of the infrarenal abdominal aorta. No aneurysm or dissection. LUNGS: The lungs are well-expanded without acute or chronic changes. No effusions or pneumothorax. MEDIASTINUM: The thyroid gland is normal. No mediastinal or hilar adenopathy. HEART: The heart is normal in size. There is evidence of CABG procedure and coronary stenting. Pacer leads are seen in the right heart. CT ABDOMEN AND PELVIS: LIVER: Hepatic steatosis without mass. GALLBLADDER: Contracted gallbladder containing a 7 mm calculus. There is no inflammatory change or biliary ductal dilatation. SPLEEN: Normal. PANCREAS: No masses or inflammation. ADRENAL GLANDS: Normal. KIDNEYS AND URETERS: The kidneys both enhance appropriately. There are normal size and shape. No hydronephrosis or nephrolithiasis. No renal masses or cysts. STOMACH: Normal. SMALL BOWEL: No abnormal distention of the small bowel. MESENTERY: No mesenteric inflammation. No ascites. COLON: Sigmoid diverticulosis. The colon is otherwise unremarkable. The colon otherwise is normal. There is a large fatty ileocecal valve. APPENDIX: The appendix is visualized and normal. IVC: Normal. RETROPERITONEUM: No retroperitoneal lymphadenopathy. PELVIC STRUCTURES: Normal bladder. Prostate. No pelvic lymphadenopathy. No free air or free fluid seen. No cavity. SOFT TISSUES ABDOMEN: The anterior abdominal wall is normal. SOFT TISSUE CHEST: There is a pacemaker in the soft tissues left upper chest wall. BONES: Degenerative changes of the thoracolumbar spine. Evidence of median sternotomy. CT/CTA Chst, Abd, Pel W and/or WO IMPRESSION: 1. Atherosclerotic changes of the thoracic aorta. There is a stable aneurysm of the proximal descending aorta. No dissection. 2. Diffuse atherosclerotic changes of the abdominal aorta with focal stenosis of the infrarenal aorta. There is no dissection or aneurysm. 3. No acute pulmonary disease. 4. Cardiac pacemaker and evidence of CABG procedure. 5. Fatty infiltration of liver. 6. Cholelithiasis. Electronically Signed: Rafiq Fernando DO at 23:23 EDT ,
--- NOTE | 2021-08-27 22:34 | EKG12_ITS ---
Test Reason : CP Blood Pressure : / mmHG Vent. Rate : 077 BPM Atrial Rate : 077 BPM P-R Int : 170 ms QRS Dur : 138 ms QT Int : 424 ms P-R-T Axes : 034 106 076 degrees QTc Int : 479 ms Normal sinus rhythm Right bundle branch block Anterolateral infarct , age undetermined Abnormal ECG Confirmed by DAVEY SMART, BALA ([id number]), order editor MARILUZ PAGE ([id number]) on 08/29/2021 10:33:27 A M Referred By: JAY Confirmed By:JUAN MARISCAL MD
--- NOTE | 2021-08-27 22:37 | ED.VIS.CHEST ---
HPI History of Present Illness Chief Complaint: Chest Pain Narrative Narrative: 61-year-old male presenting with chest and abdominal pain. He states his chest pain is in the left upper chest that it feels like a moderate tooth ache. He states that earlier today he was trying to eat and he has difficulties with a narrow esophagus and states the food got stuck and came back up and he has been able to get some fluids down since then but now he reports that he has mid abdominal pain which radiates to his flanks. He has not had constipation or diarrhea. No fever, chills, cough. Patient does report that he has an aneurysm as it is thoracic aorta and abdominal aorta. He has not had surgical repair of these. He does not know when they were last imaged. Denies paresthesias. Patient does state that he is on Coumadin. [facility] Medical History Abdominal aortic aneurysm (AAA) Abnormal PFT Anxiety Atherosclerosis of coronary artery bypass graft of [place] heart with angina pectoris Chronic HFrEF (heart failure with reduced ejection fraction) COPD (chronic obstructive pulmonary disease) Depression Depression with anxiety Descending aortic aneurysm Esophageal stricture Essential (primary) hypertension GERD (gastroesophageal reflux disease) Hemangioma History of CVA (cerebrovascular accident) (02/07/21) History of non-ST elevation myocardial infarction (NSTEMI) (02/07/21) HLD (hyperlipidemia) Hypersomnia Hypomagnesemia syndrome Ischemic cardiomyopathy Left lower lobe pulmonary nodule Neuropathic pain Nicotine dependence LETTY (obstructive sleep apnea) Osteoporosis PAF (paroxysmal atrial fibrillation) Peripheral vascular occlusive disease Rheumatoid arthritis Smoking greater than 40 pack years Stroke TIA (transient ischemic attack) Tinnitus Home Medications magnesium oxide 400 mg PO DAILY supplement 11/07/18 [History Last Taken 04/20/20] pantoprazole 40 mg tablet,delayed release 40 mg PO BID stomach 11/15/18 [History Last Taken 05/20/20] amitriptyline 25 mg tablet 25 mg PO QHS Depression 08/17/19 [History Last Taken 04/20/20] alendronate 70 mg tablet 70 mg PO QWEEK osteoporosis 03/15/20 [History Last Taken 04/15/20] gabapentin 600 mg tablet 600 mg PO 4X/DAY nerve pain 03/15/20 [History Last Taken 05/20/20] empagliflozin 10 mg tablet (Jardiance) 10 mg PO DAILY diabetes 09/13/20 [History Last Taken Unknown] furosemide 40 mg tablet 40 mg PO DAILY water pill 09/13/20 [History Last Taken Unknown] docusate sodium 50 mg capsule 50 mg PO DAILY 10/21/20 [History Last Taken Unknown] potassium chloride 20 mEq tablet,extended release 20 meq PO DAILY 11/11/20 [History Last Taken Unknown] clopidogrel 75 mg tablet 75 mg PO DAILY anti platelet #90 tabs 11/21/20 [Rx Last Taken Unknown] atorvastatin 80 mg tablet 80 mg PO QHS Cholesterol #90 tabs 02/04/21 [Rx Last Taken Unknown] metoprolol succinate 50 mg tablet,extended release 24 hr 50 mg PO BID BP #180 tabs 03/06/21 [Rx Last Taken Unknown] tramadol 50 mg tablet 50 mg PO Q8H PRN Pain 03/06/21 [History Last Taken Unknown] isosorbide mononitrate 60 mg tablet,extended release 24 hr 60 mg PO BID #180 tabs 03/19/21 [Rx Last Taken Unknown] nitroglycerin 0.4 mg sublingual tablet 0.4 mg sublingual Q5M PRN Pain #100 tabs 03/19/21 [Rx Last Taken Unknown] warfarin 4 mg tablet 4 mg PO DAILY 06/04/21 [History Last Taken Unknown] ondansetron 4 mg disintegrating tablet 4 mg PO Q6H PRN nausea and vomiting #14 tabs 06/05/21 [Rx Last Taken Unknown] amlodipine 2.5 mg tablet 2.5 mg PO DAILY #30 tabs 06/17/21 [Rx Last Taken Unknown] ergocalciferol (vitamin D2) 1,250 mcg (50,000 unit) capsule 50,000 unit PO QWEEK #24 caps 06/17/21 [Rx Last Taken Unknown] lisinopril 5 mg tablet 5 mg PO DAILY 06/30/21 [History Last Taken Unknown] ipratropium 0.5 mg-albuterol 3 mg (2.5 mg base)/3 mL nebulization soln 3 ml inhalation Q4H PRN shortness of breath or wheezing #180 mL 08/13/21 [Rx Last Taken Unknown] Allergy/AdvReac Type Severity Reaction Status Date / [facility] Severe dry heaves Verified 08/27/21 22:01 latex Allergy Unknown unknown Verified 08/27/21 22:01 acetaminophen Allergy Anaphylaxis Verified 08/27/21 22:01 [From Darvocet-N] diphenhydramine Allergy Rash Verified 08/27/21 22:01 [From Benadryl] NSAIDS (Non-Steroidal Allergy Anaphylaxis Verified 08/27/21 22:01 Anti-Inflamma Penicillins Allergy Anaphylaxis Verified 08/27/21 22:01 propoxyphene Allergy Anaphylaxis Verified 08/27/21 22:01 [From Darvocet-N] hydrocodone [From Vicodin] AdvReac Mild Nausea/Vom/ Verified 08/27/21 22:01 Diarrhea peppercorn AdvReac NEEDS Uncoded 08/27/21 22:01 FOLLOW-UP Family History Sister CVA (cerebral vascular accident) Heart disease Hypertension High cholesterol Diabetes Cancer lung cancer Father Arthritis Cancer myeloma Mother Arthritis Cancer Brain cancer Surgical History H/O coronary artery bypass surgery (01/28/12) History of angioplasty of peripheral vessel (01/2015) History of coronary angioplasty (08/09/20) History of coronary artery stent placement (10/22/19) History of implantable cardiac defibrillator (ICD) (09/15/17) History of left heart catheterization (05/20/20) History of left inguinal hernia repair S/P femoral-tibial bypass (12/28/18) Social History household members: significant other Smoking Status: Current every day smoker tobacco type: cigarettes Tobacco: How many years used: 40 quit status: considering quitting alcohol intake: never substance use type: does not use caffeine: Yes (cola) Type: carbonated beverages Number of servings: 4 EXAM Physical Exam Const Vital Signs: 08/27/21 22:01 08/27/21 22:21 08/27/21 22:43 Temperature 97.5 F L Temperature Source Oral Pulse Rate 88 Respiratory Rate 22 H Respiratory Effort Normal Non-Labored Blood Pressure 132/90 H Blood Pressure Mean 104 Pulse Ox 98 Oxygen Delivery Method Room Air Room Air 08/27/21 23:00 08/28/21 00:00 08/28/21 02:07 Temperature Temperature Source Pulse Rate 79 69 76 Respiratory Rate 15 16 18 Respiratory Effort Blood Pressure 125/71 H 122/73 H 129/73 H Blood Pressure Mean 89 89 91 Pulse Ox 95 92 93 Oxygen Delivery Method Room Air Room Air Room Air 08/28/21 02:30 Temperature Temperature Source Pulse Rate 76 Respiratory Rate 16 Respiratory Effort Blood Pressure 129/73 H Blood Pressure Mean Pulse Ox 98 Oxygen Delivery Method Positive well nourished General Appearance ED: NAD; Negative for pallor HEENT Reports TM's clear and moist mucous membranes normocephalic and atraumatic Tympanic Membrane ED: Yes TM's clear Eyes PERRL and EOMs intact bilaterally Resp normal respiratory effort and clear to auscultation bilaterally Cardio regular rate and regular rhythm Peripheral Pulses: pulses 2+ throughout GI GI Narrative: Mid abdominal tenderness to palpation above the level of the umbilicus and below the sternum. Back/Spine no CVA tenderness Neuro oriented x3 and CN's II-XII intact bilaterally Motor Exam: strength 5/5 throughout Skin no rashes or lesions noted General Skin Exam: Negative for jaundice or pallor Heart Score History: Slightly/Non-Suspicious ECG: Normal Age: >45 - <65 years Risk Factors: >/= 3 Risk Factors or History of CAD Score: 3 MDM MDM MDM Narrative Medical decision making narrative: 61-year-old male presenting with chest and abdominal pain. He states this all occurred after he was trying to eat earlier and felt as if some food was lodged in his throat and it came back up. He is not expressing to me that his nausea is any does not present like somebody with an impacted food bolus he is tolerating secretions. He is able to drink fluids. His chest pain he describes to me as a tooth ache which is not severe. He describes it as a left upper chest wall. He is not describe pressure or sharpness. An EKG was obtained and on my interpretation this is a normal sinus rhythm with a ventricular rate of 77 bpm with right bundle branch block pattern. There is no ST elevations or depressions. Patient is also describing abdominal pain which is more severe in the mid abdomen and and relates to me that he has a history of a thoracic aortic aneurysm and an abdominal aortic aneurysm and for this reason he was taken to for CTA of the chest/abdomen/pelvis after he had an EKG. There is a stable aneurysm of the descending aorta without dissection. High-sensitivity troponin initially is 11 and 2 hours it is 15. There is no significant interval change. CBC is unremarkable. INR is therapeutic at 3.5. Creatinine slightly elevated 1.61. Patient was given a liter of IV fluids here in the ED. He has an elevated creatinines in the past. There is a gallstone noted on the patient's CT however the patient does not have a [place] sign and his LFTs are within normal limits and so his lipase. I do not think this is a source. I feel at this point patient is stable for discharge home. He has appointment for Dr. Albert tomorrow which I encouraged him to keep up. He is given return precautions. Impression: 1. Chest pain 2. Abdominal pain 3. History of AAA 4. Elevated creatinine Lab Data Attestation: I reviewed the patient's lab results. Labs: Laboratory Results - last 24 hr 08/27/21 08/27/21 08/27/21 22:36 22:36 22:36 WBC 9.0 RBC 5.49 Hgb 16.7 H Hct 49.5 MCV 90.2 MCH 30.4 MCHC 33.7 RDW Std Deviation 51.1 H RDW Coeff of Jack 15.6 H Plt Count 186 MPV 10.5 Immature Gran % (Auto) 0.800 Neut % (Auto) 53.8 Lymph % (Auto) 32.1 [place] % (Auto) 6.3 Eos % (Auto) 5.9 H Baso % (Auto) 1.1 H Absolute Neuts (auto) 4.8 Absolute Lymphs (auto) 2.89 Nucleated RBC % 0 PT 34.8 H INR 3.5 Sodium 137 Potassium 3.9 Chloride 105 Carbon Dioxide 28.0 Anion Gap 4 L BUN 17 Creatinine 1.61 H Estim Creat Clear Calc 46.19 Est GFR (MDRD) Af Amer 57 L Est GFR (MDRD) Non-Af 47 L BUN/Creatinine Ratio 10.6 Glucose 166 H Calcium 9.2 Total Bilirubin Direct Bilirubin AST ALT Alkaline Phosphatase Troponin I High Sens 11 Total Protein Albumin Globulin Lipase 08/27/21 08/28/21 22:36 00:40 WBC RBC Hgb Hct MCV MCH MCHC RDW Std Deviation RDW Coeff of Jack Plt Count MPV Immature Gran % (Auto) Neut % (Auto) Lymph % (Auto) [place] % (Auto) Eos % (Auto) Baso % (Auto) Absolute Neuts (auto) Absolute Lymphs (auto) Nucleated RBC % PT INR Sodium Potassium Chloride Carbon Dioxide Anion Gap BUN Creatinine Estim Creat Clear Calc Est GFR (MDRD) Af Amer Est GFR (MDRD) Non-Af BUN/Creatinine Ratio Glucose Calcium Total Bilirubin 0.30 Direct Bilirubin 0.10 AST 24 ALT 30 Alkaline Phosphatase 88 Troponin I High Sens 15 Total Protein 7.2 Albumin 3.5 Globulin 3.7 Lipase 198 Radiography Diagnostic Testing: Clinical Impression(s) from Imaging Studies Chest/Abdomen/Pelvis CTA 08/27/21 22:34 IMPRESSION: 1. Atherosclerotic changes of the thoracic aorta. There is a stable aneurysm of the proximal descending aorta. No dissection. 2. Diffuse atherosclerotic changes of the abdominal aorta with focal stenosis of the infrarenal aorta. There is no dissection or aneurysm. 3. No acute pulmonary disease. 4. Cardiac pacemaker and evidence of CABG procedure. 5. Fatty infiltration of liver. 6. Cholelithiasis. Electronically Signed: Rafiq Fernando DO at 23:23 EDT Reading Location ID and State: [address] [place] [address] Tel [phone], Service support , Discharge Plan Triage Chief Complaint: Chest Pain Other Complaint: Abd Pain ED Provider: Curt Gilman Dx/Rx/DC Orders Instructions: ED Chest Pain, Uncertain Cause, ED Abdominal Pain Unkn Cause Male... Prescriptions: No Action pantoprazole 40 mg tablet,delayed release (DR/EC) 40 mg PO BID gabapentin 600 mg tablet 600 mg PO 4X/DAY amitriptyline 25 mg tablet 25 mg PO QHS alendronate 70 mg tablet 70 mg PO QWEEK Rx Instructions: pt takes on Mondays Jardiance 10 mg tablet 10 mg PO DAILY potassium chloride 20 mEq tablet extended release 20 meq PO DAILY tramadol 50 mg tablet 50 mg PO Q8H PRN (Reason: Pain) Label Comments: TAKE ONE TABLET BY MOUTH EVERY NIGHT WITH TYLENOL 650MG metoprolol succinate 50 mg tablet extended release 24 hr 50 mg PO BID Qty: 180 3RF warfarin 4 mg tablet 4 mg PO DAILY Protocol: Dose Management Condition: Wednesday Dose/Route: 4 mg Instruction: 1 x 4 mg tablet Condition: Wednesday Dose/Route: 4 mg Instruction: 1 x 4 mg tablet Condition: Brittany Dose/Route: 2 mg Instruction: 0.5 x 4 mg tablets Condition: Wednesday Dose/Route: 4 mg Instruction: 1 x 4 mg tablet Condition: Dose/Route: 4 mg Instruction: 1 x 4 mg tablet Condition: Wednesday Dose/Route: 4 mg Instruction: 1 x 4 mg tablet Condition: Wednesday Dose/Route: 4 mg Instruction: 1 x 4 mg tablet Protocol Text: Adjustment Start Date: Wednesday08/19/21 INR Value: 3.5 INR Date: 08/19/21 Recheck Date: 08/26/21 amlodipine 2.5 mg tablet 2.5 mg PO DAILY Qty: 30 11RF ergocalciferol (vitamin D2) 1,250 mcg (50,000 unit) capsule 50,000 unit PO QWEEK Qty: 24 0RF magnesium oxide 400 MG tablet 400 mg PO DAILY furosemide 40 mg tablet 40 mg PO DAILY Colace 50 mg Capsule 50 mg PO DAILY ondansetron 4 mg tablet,disintegrating 4 mg PO Q6H PRN (Reason: nausea and vomiting) Qty: 14 0RF clopidogrel 75 mg tablet 75 mg PO DAILY Qty: 90 3RF atorvastatin 80 mg tablet 80 mg PO QHS Qty: 90 3RF nitroglycerin 0.4 mg tablet, sublingual 0.4 mg sublingual Q5M PRN (Reason: Pain) Qty: 100 3RF Rx Instructions: do not exceed 3 doses per episode isosorbide mononitrate 60 mg tablet extended release 24 hr 60 mg PO BID Qty: 180 3RF lisinopril 5 mg tablet 5 mg PO DAILY ipratropium-albuterol 0.5 mg-3 mg(2.5 mg base)/3 mL solution for nebulization 3 ml inhalation Q4H PRN (Reason: shortness of breath or wheezing) Qty: 180 3RF Primary Care Provider: Oral Calderon Referrals: Oral Calderon MD [Primary Care Provider] - Disposition Disposition: Home, Self Care Discharge Date/Time: 08/28/21 02:31
[2021-08-27 22:44] LABS: Absolute Lymphocyte Count 2.89 X10^3/uL (0.83-4.51); Absolute Neutrophil Count 4.8 X10^3/uL (2.0-7.7); Basophil% 1.1 % (0-1); Eosinophil# 0.53 X10^3/uL; Eosinophils% 5.9 % (0-5); Hematocrit 49.5 % (40-54); Hemoglobin 16.7 g/dL (13.0-16.5); Lymphocyte # 2.89 X10^3/ul (0.83-4.51); Lymphocyte % 32.1 % (19-41); Mean Corp Hgb Conc 33.7 g/dL (32-36); Mean Corpuscular Hgb 30.4 pg (27.0-32.0); Mean Corpuscular Volume 90.2 fL (80-94); Mean Platelet Vol. 10.5 fl (6.2-12.0); Monocyte# 0.57 X10^3/uL; Monocyte% 6.3 % (0-10); NRBC Flagged by Analyzer 0 % (0-5); Neutrophil # 4.83 X10^3/uL (2.7-7.7); Neutrophil % 53.8 % (47-70); Platelet Count 186 K/mm3 (150-450); RBC Distribution Width CV 15.6 % (11.6-14.6); RBC Distribution Width SD 51.1 fl (35.1-43.9); Red Blood Count 5.49 M/mm3 (4.6-6.2)
[2021-08-27 22:57] LABS: International Normalized Ratio 3.5; Prothrombin Time (Protime)PT. 34.8 SECONDS (11.7-14.9)
[2021-08-27 23:00] VITALS: BP 125/71; PULSE 79; RESP 15; O2SAT 95
[2021-08-27] MEDS: Ondansetron 4 MG/2 ML Vial IV (23:02)
[2021-08-27] MEDS: Morphine 4 MG/ML Syringe IV (23:03)
[2021-08-27 23:04] LABS: Anion Gap 4 (5-15); BUN 17 mg/dL (7-18); BUN/Creat Ratio 10.6 RATIO (10-20); Calcium,Total 9.2 mg/dL (8.5-10.1); Chloride 105 mmol/L (98-107); Creatinine, Serum 1.61 mg/dL (0.70-1.30); EST Glomerular Filtration Rate 47 mL/min (>60); Est Glom Filt Rate - Afr Amer 57 mL/min (>60); Estimated Creatinine Clearance 46.19 ml/min; Glucose 166 mg/dL (74-106); Potassium 3.9 mmol/L (3.5-5.1); Sodium Level 137 mmol/L (136-145); Troponin-I HS (w/2H Reflex) 11 pg/mL (3.0-78.0)
[2021-08-27 23:08] LABS: AST(SGOT) 24 U/L (15-37); Alanine Aminotransfer ALT/SGPT 30 U/L (16-61); Albumin, Serum 3.5 g/dL (3.2-5.0); Alkaline Phosphatase 88 U/L (45-117); Globulin 3.7 g/dL (2.2-4.2); Lipase 198 U/L (73-393); Protein, Total 7.2 g/dL (6.4-8.2)
[2021-08-27] MEDS: 0.9% Normal Saline 1,000 ML 999 ML IV (23:11)
[2021-08-28] VITALS: BP 122/73; PULSE 69; RESP 16; O2SAT 92
[2021-08-28 00:42] LABS: Reflex Troponin-HS? (from REC) Y
[2021-08-28] MEDS: Morphine 4 MG/ML Syringe IV (00:54)
[2021-08-28 01:02] LABS: Troponin-I HS 15 pg/mL (3.0-78.0)
[2021-08-28 02:07] VITALS: BP 129/73; PULSE 76; RESP 18; O2SAT 93
[2021-08-28 02:30] VITALS: BP 129/73; PULSE 76; RESP 16; O2SAT 98
== END 2021-08-28 02:31 | disposition home or self-care (01) ==
PROVIDERS: Emergency Provider Student in an Organized Health Care Education/Training Program; PCP Family Medicine; Visit Provider Student in an Organized Health Care Education/Training Program
DX: R07.9 Chest pain, unspecified (principal); M06.9 Rheumatoid arthritis, unspecified; J44.9 Chronic obstructive pulmonary disease, unspecified; I11.0 Hypertensive heart disease with heart failure; I50.22 Chronic systolic (congestive) heart failure; I71.4 Abdominal aortic aneurysm, without rupture; I71.2 Thoracic aortic aneurysm, without rupture; I48.0 Paroxysmal atrial fibrillation; R10.9 Unspecified abdominal pain; K80.20 Calculus of gallbladder without cholecystitis without obstruction; I25.10 Atherosclerotic heart disease of native coronary artery without angina pectoris; I25.5 Ischemic cardiomyopathy; E78.5 Hyperlipidemia, unspecified; G47.33 Obstructive sleep apnea (adult) (pediatric); K21.9 Gastro-esophageal reflux disease without esophagitis; F17.210 Nicotine dependence, cigarettes, uncomplicated; Z79.01 Long term (current) use of anticoagulants; Z79.02 Long term (current) use of antithrombotics/antiplatelets; Z79.899 Other long term (current) drug therapy; I25.2 Old myocardial infarction; Z86.73 Personal history of transient ischemic attack (TIA), and cerebral infarction without residual deficits; Z95.1 Presence of aortocoronary bypass graft; Z95.5 Presence of coronary angioplasty implant and graft
CPT/HCPCS: 71275; 74174; 80048; 80076; 83690; 84484; 85025; 85610; 93005; 96361; 96374; 96375; 96376; 99284; J7030; Q9967; A4216; J2405

== ENCOUNTER 2021-09-06 19:54 | Inpatient (IN) | payer MEDICARE, SELFPAY ==
[2018-12-13 11:07] VITALS: BMI 26.3
[2021-09-06] VITALS (13 sets, daily range): BP systolic 91–140; BP diastolic 64–85; PULSE 76–101; RESP 12–20; TEMP 35.9–36.4; O2SAT 90–98; BMI 30.3; BMI 29.7
--- NOTE | 2021-09-06 20:00 | EKG12_ITS ---
Test Reason : cp Blood Pressure : / mmHG Vent. Rate : 103 BPM Atrial Rate : 103 BPM P-R Int : 166 ms QRS Dur : 138 ms QT Int : 390 ms P-R-T Axes : 052 119 019 degrees QTc Int : 510 ms Sinus tachycardia Right bundle branch block Possible Inferior infarct , age undetermined Anterolateral infarct , age undetermined Abnormal ECG Confirmed by JULIO SMART, TABATHA ([id number]), sports editor MARILUZ PAGE ([id number]) on 09/09/2021 9:28:21 AM Referred By: Camille Guzman Confirmed By:TABATHA KIM MD
--- NOTE | 2021-09-06 20:00 | RAD_ITS ---
STUDY: X-RAY CHEST REASON FOR EXAM: Male, 61 years old. chest pain TECHNIQUE: AP COMPARISON: 06/05/2021 FINDINGS: EKG leads project over the chest. Two lead cardiac conduction device is seen via the left subclavian vein with lead tips projecting over the right atrium and right ventricle, respectively. The lungs are clear and expanded. There is no demonstrated pleural abnormality. There is mild cardiac enlargement. Coronary artery stents. Normal mediastinum and jovanni. Normal visualized pulmonary arteries. There is atherosclerotic tortuosity of the aortic arch and descending thoracic aorta. No acute bony process. There is no demonstrated abnormality of the visualized soft tissue structures of the upper abdomen. RAD/Chest 1 View (Portable) IMPRESSION: Stable, nonacute portable x-ray examination of the chest. Electronically Signed: Nithin Martines MD ([place]) at 20:18 EDT ,
--- NOTE | 2021-09-06 20:02 | ED.VIS.CHEST ---
HPI History of Present Illness Chief Complaint: Chest Pain Informant: patient Onset/Context/Timing Onset: Today (Less than 1 hour ago, just prior to arrival, called EMS immediately afterwards) Activity at onset: sudden, activity on onset and rest Timing: Continuous Quality: Positive for Heaviness Location: Substernal (With radiation to left upper extremity and the jaw) Current Severity: Severe Maximum Severity: Severe Worsened By: Nothing Relieved By: Nothing; Not Relieved By Antacids, NTG or Narcotics Narrative Narrative: Started having severe chest pain tonight, he popped some an acids and called EMS immediately, he states this feels like the maker, he has a history of 30 heart attacks in the past, and he states this feels like his heart. EMS transmitted prehospital EKGs in route. They state that in route, the patient's AICD fired twice, and in looking at the rhythm strips, there was no dysrhythmia or significant tachycardia he was having a rate around 100 just prior to that. [facility] Medical History Abdominal aortic aneurysm (AAA) Abnormal PFT Anxiety Atherosclerosis of coronary artery bypass graft of [place] heart with angina pectoris Blood in stool Chronic HFrEF (heart failure with reduced ejection fraction) COPD (chronic obstructive pulmonary disease) Depression Depression with anxiety Descending aortic aneurysm Diverticulosis Esophageal stricture Essential (primary) hypertension GERD (gastroesophageal reflux disease) Hemangioma History of CVA (cerebrovascular accident) (02/07/21) History of non-ST elevation myocardial infarction (NSTEMI) (02/07/21) HLD (hyperlipidemia) Hypersomnia Hypomagnesemia syndrome Ischemic cardiomyopathy Left lower lobe pulmonary nodule Neuropathic pain Nicotine dependence LETTY (obstructive sleep apnea) Osteoporosis PAF (paroxysmal atrial fibrillation) Peripheral vascular occlusive disease Rheumatoid arthritis Right bundle branch block (RBBB) Right ventricular systolic dysfunction Smoking greater than 40 pack years Stroke Testicular pain Thoracic aortic aneurysm (TAA) TIA (transient ischemic attack) Tinnitus Home Medications magnesium oxide 400 mg PO DAILY supplement 11/07/18 [History Last Taken 04/20/20] pantoprazole 40 mg tablet,delayed release 40 mg PO BID stomach 11/15/18 [History Last Taken 05/20/20] amitriptyline 25 mg tablet 25 mg PO QHS Depression 08/17/19 [History Last Taken 04/20/20] alendronate 70 mg tablet 70 mg PO QWEEK osteoporosis 03/15/20 [History Last Taken 04/15/20] gabapentin 600 mg tablet 600 mg PO 4X/DAY nerve pain 03/15/20 [History Last Taken 05/20/20] empagliflozin 10 mg tablet (Jardiance) 10 mg PO DAILY diabetes 09/13/20 [History Last Taken Unknown] furosemide 40 mg tablet 40 mg PO DAILY water pill 09/13/20 [History Last Taken Unknown] docusate sodium 50 mg capsule 50 mg PO DAILY 10/21/20 [History Last Taken Unknown] potassium chloride 20 mEq tablet,extended release 20 meq PO DAILY 11/11/20 [History Last Taken Unknown] clopidogrel 75 mg tablet 75 mg PO DAILY anti platelet #90 tabs 11/21/20 [Rx Last Taken Unknown] metoprolol succinate 50 mg tablet,extended release 24 hr 50 mg PO BID BP #180 tabs 03/06/21 [Rx Last Taken Unknown] tramadol 50 mg tablet 50 mg PO Q8H PRN Pain 03/06/21 [History Last Taken Unknown] isosorbide mononitrate 60 mg tablet,extended release 24 hr 60 mg PO BID #180 tabs 03/19/21 [Rx Last Taken Unknown] nitroglycerin 0.4 mg sublingual tablet 0.4 mg sublingual Q5M PRN Pain #100 tabs 03/19/21 [Rx Last Taken Unknown] warfarin 4 mg tablet 4 mg PO DAILY 06/04/21 [History Last Taken Unknown] ondansetron 4 mg disintegrating tablet 4 mg PO Q6H PRN nausea and vomiting #14 tabs 06/05/21 [Rx Last Taken Unknown] amlodipine 2.5 mg tablet 2.5 mg PO DAILY #30 tabs 06/17/21 [Rx Last Taken Unknown] ergocalciferol (vitamin D2) 1,250 mcg (50,000 unit) capsule 50,000 unit PO QWEEK #24 caps 06/17/21 [Rx Last Taken Unknown] lisinopril 5 mg tablet 5 mg PO DAILY 06/30/21 [History Last Taken Unknown] ipratropium 0.5 mg-albuterol 3 mg (2.5 mg base)/3 mL nebulization soln 3 ml inhalation Q4H PRN shortness of breath or wheezing #180 mL 08/13/21 [Rx Last Taken Unknown] empagliflozin 10 mg tablet (Jardiance) 10 mg PO DAILY 09/06/21 [History Last Taken Unknown] rosuvastatin 40 mg tablet 1 tab PO DAILY 09/06/21 [History Last Taken Unknown] Allergy/AdvReac Type Severity Reaction Status Date / Time oxycodone [From Percocet] Allergy Severe dry heaves Verified 08/28/21 07:55 latex Allergy Unknown unknown Verified 08/28/21 07:55 acetaminophen Allergy Anaphylaxis Verified 08/28/21 07:55 [From Darvocet-N] diphenhydramine Allergy Rash Verified 08/28/21 07:55 [From Benadryl] NSAIDS (Non-Steroidal Allergy Anaphylaxis Verified 08/28/21 07:55 Anti-Inflamma Penicillins Allergy Anaphylaxis Verified 08/28/21 07:55 propoxyphene Allergy Anaphylaxis Verified 08/28/21 07:55 [From Darvocet-N] hydrocodone [From Vicodin] AdvReac Mild Nausea/Vom/ Verified 08/28/21 07:55 Diarrhea peppercorn AdvReac NEEDS Uncoded 08/28/21 07:55 FOLLOW-UP Family History Sister CVA (cerebral vascular accident) Heart disease Hypertension High cholesterol Diabetes Cancer lung cancer Father Arthritis Cancer myeloma Mother Arthritis Cancer Brain cancer Surgical History H/O coronary artery bypass surgery (01/28/12) History of angioplasty of peripheral vessel (01/2015) History of coronary angioplasty (08/09/20) History of coronary artery stent placement (10/22/19) History of implantable cardiac defibrillator (ICD) (09/15/17) History of left heart catheterization (05/20/20) History of left inguinal hernia repair S/P femoral-tibial bypass (12/28/18) Sebaceous cyst Social History household members: significant other Smoking Status: Current every day smoker tobacco type: cigarettes Tobacco: How many years used: 40 quit status: considering quitting alcohol intake: never substance use type: does not use caffeine: Yes (cola) Type: carbonated beverages Number of servings: 4 ROS ROS ED Constitutional Constitutional ED: Reports malaise and sweats; Denies chills or fever(s) Eyes Eyes: Denies change in vision or diplopia ENT ENT ED: Reports other Details: Jaw pain ; Denies rhinorrhea or sore throat Cardiovascular Cardiovascular: Reports chest pain; Denies palpitations Respiratory/Chest Respiratory/Chest: Reports dyspnea; Denies cough Gastrointestinal Gastrointestinal: Denies abdominal pain, diarrhea, nausea or vomiting Genitourinary Genitourinary ED: Denies dysuria or hematuria Musculoskeletal Musculoskeletal: Reports extremity pain; Denies back pain or neck pain Integumentary Denies abscess or rash Neurologic Neurologic: Denies headache(s), paresthesias or weakness Psychiatric Psychiatric: Denies anxiety or suicidal thoughts EXAM Physical Exam Const Vital Signs: 09/06/21 19:54 09/06/21 20:01 Temperature 96.7 F L Temperature Source Temporal Pulse Rate 101 H Respiratory Rate 20 H 20 H Blood Pressure 134/85 H 140/84 H Blood Pressure Mean 101 Pulse Ox 90 Oxygen Delivery Method Room Air Positive well nourished and well developed Constitutional Narrative: Clutching chest appears to be in painful distress. General Appearance ED: well developed HEENT Reports moist mucous membranes normocephalic and atraumatic Eyes PERRL and EOMs intact bilaterally Neck full ROM and supple Chest Wall Chest Narrative: Well-healed midline surgical scar from sternectomy Resp normal respiratory effort and clear to auscultation bilaterally Cardio regular rate, regular rhythm and no murmurs Rate: tachycardic GI non-tender and non-distended Auscultation: normoactive bowel sounds Palpation: soft Back/Spine no CVA tenderness General Back: other FROM Extremity normal to inspection General Extremety ED: Negative for edema, pulses abnormal or tenderness General Extremity: Negative for edema or pulses abnormal Neuro oriented x3, CN's II-XII intact bilaterally and no sensory deficits noted Sensorium / Orientation: awake and alert Motor Exam: strength 5/5 throughout Psych mental status grossly normal Skin no rashes or lesions noted and no wounds Skin Narrative: Diaphoretic Heart Score History: Highly Suspicious ECG: Significant ST-Depression Age: >45 - <65 years Risk Factors: >/= 3 Risk Factors or History of CAD Score: 7 MDM MDM MDM Narrative Medical decision making narrative: First EKG that was sent via EMS appeared to show a right bundle branch block, and NC depression rather than ST elevation. Therefore, it was called not a STEMI. EMS sent another EKG because the patient began having worsening pain despite them giving him morphine 10 mg, and it appears similar. I had discussed this while send an EKG to cardiology prior to the patient's arrival, as we were both concerned about the patient's story that EMS gave. Patient clinically looks very concerning like a STEMI. His EKG here shows some nonspecific inferior ST-T wave abnormalities without mireille ST elevation. However given this and his history, Dr. Guzman requested to call the [employer] team in and to plan on treating him as a STEMI anyway which I think is reasonable. He is anticoagulated on warfarin, for now I am giving him fentanyl and a nitroglycerin drip, I did review his stat portable 1 view chest x-ray which in my interpretation shows a mediastinum that is within normal limits and no mireille edema. Cardiology saw the patient in the emergency department, and since the patient is actually doing much better now, we had to EKGs in the emergency department for a total of 4 EKGs since he has had chest discomfort, none of them show STEMI criteria, although the [address] some minor [address] depressions inferiorly without reciprocal changes. For this reason, he canceled the [employer] team and we will admit the patient to the CCU/ICU on heparin, nitroglycerin, and treat him as acute coronary syndrome with delayed catheterization unless his condition changes. Although there is no paperwork available at this time, patient reminds his caretakers and EMS providers that he is DNR if he were to arrest, but he wants everything done otherwise. Lab Data Attestation: I reviewed the patient's lab results. Labs: Laboratory Results - last 24 hr 09/06/21 09/06/21 09/06/21 19:58 19:58 19:58 WBC 9.1 RBC 5.42 Hgb 16.9 H Hct 48.8 MCV 90.0 MCH 31.2 MCHC 34.6 RDW Std Deviation 50.2 H RDW Coeff of Jack 15.4 H Plt Count 172 MPV 10.2 Immature Gran % (Auto) 0.200 Neut % (Auto) 56.2 Lymph % (Auto) 29.7 [place] % (Auto) 6.8 Eos % (Auto) 5.9 H Baso % (Auto) 1.2 H Absolute Neuts (auto) 5.1 Absolute Lymphs (auto) 2.71 Nucleated RBC % 0 PT 13.1 INR 1.0 APTT 30.8 Sodium 138 Potassium 3.9 Chloride 103 Carbon Dioxide 25.0 Anion Gap 10 BUN 16 Creatinine 1.44 H Estim Creat Clear Calc 51.64 Est GFR (MDRD) Af Amer 65 Est GFR (MDRD) Non-Af 53 L BUN/Creatinine Ratio 11.1 Glucose 141 H Calcium 9.5 Troponin I High Sens 58 Radiography Diagnostic Testing: Clinical Impression(s) from Imaging Studies Chest X-Ray 09/06/21 20:00 IMPRESSION: Stable, nonacute portable x-ray examination of the chest. Electronically Signed: Nithin Martines MD (Brooks) at 20:18 EDT Reading Location ID and State: [facility] / [place] , Service support , Rhythm Strip Rhythm Strip: Sinus Tach Rate: 100 Ectopy: None EKG Initial EKG: Attestation: I personally reviewed and interpreted this EKG as follows: Interpretation: Sinus Rhythm, RBBB and Non-Specific ST Changes (inferiorly) Prior: Changed (When compared with EMS EKGs, see above; old EKG from 10 days ago does not appear to show any NC depression or ST elevation/depression, he did have old T wave inversions anteroseptally.) Follow-up EKG: Attestation: I personally reviewed and interpreted this EKG as follows: Interpretation: Sinus Rhythm, No Acute Injury Pattern, RBBB and S-T Depression (Mild inferiorly less than 1 mm) Prior: Unchanged Critical Care Time Critical Care Time: Yes Critical care time (excluding procedures): 30-74 minutes (40 min), Including time spent:, Discussing w/Patient &/or Family/Maintenance Service Supervisor, Discussing w/Consultants, Arranging Admission or Transfer and Performing Direct Patient Care at Bedside Discharge Plan Dx/Rx/DC Orders Clinical Impression: ACS (acute coronary syndrome), AICD discharge, Hx of coronary artery disease Disposition Disposition: Acute Care [facility]
[2021-09-06] MEDS: fentaNYL 100 MCG/2 ML Ampul 50 MCG IV (20:06)
[2021-09-06 20:07] LABS: Absolute Lymphocyte Count 2.71 X10^3/uL (0.83-4.51); Absolute Neutrophil Count 5.1 X10^3/uL (2.0-7.7); Basophil# 0.11 X10^3/uL; Basophil% 1.2 % (0-1); Eosinophil# 0.54 X10^3/uL; Eosinophils% 5.9 % (0-5); Hematocrit 48.8 % (40-54); Hemoglobin 16.9 g/dL (13.0-16.5); Lymphocyte # 2.71 X10^3/ul (0.83-4.51); Lymphocyte % 29.7 % (19-41); Mean Corp Hgb Conc 34.6 g/dL (32-36); Mean Corpuscular Hgb 31.2 pg (27.0-32.0); Mean Platelet Vol. 10.2 fl (6.2-12.0); Monocyte# 0.62 X10^3/uL; Monocyte% 6.8 % (0-10); NRBC Flagged by Analyzer 0 % (0-5); Neutrophil # 5.11 X10^3/uL (2.7-7.7); Neutrophil % 56.2 % (47-70); Platelet Count 172 K/mm3 (150-450); RBC Distribution Width CV 15.4 % (11.6-14.6); RBC Distribution Width SD 50.2 fl (35.1-43.9); Red Blood Count 5.42 M/mm3 (4.6-6.2); White Blood Count 9.1 K/mm3 (4.4-11.0)
--- NOTE | 2021-09-06 20:07 | EKG12_ITS ---
Test Reason : repeat Blood Pressure : / mmHG Vent. Rate : 101 BPM Atrial Rate : 101 BPM P-R Int : 174 ms QRS Dur : 142 ms QT Int : 390 ms P-R-T Axes : 029 123 -06 degrees QTc Int : 505 ms Sinus tachycardia Right bundle branch block Possible Inferior infarct , age undetermined Anterolateral infarct , age undetermined Abnormal ECG Confirmed by JULIO SMART, TABATHA ([id number]), copy editor MARILUZ PAGE ([id number]) on 09/09/2021 9:28:42 AM Referred By: Camille Guzman Confirmed By:TABATHA KIM MD
--- NOTE | 2021-09-06 20:08 | PCM.HP.STD ---
HPI - General General Date of Admission: 09/06/21 Date of Service: 09/06/21 Chief Complaint: Chest pain HPI Narrative SALAZAR HOLT, is a 61 M with a significant history of CAD status post CABG stents; sternotomy; multiple aneurysms; CAD PAD status post stents; hyperlipidemia; borderline diabetes; hypertension; atrial fibrillation on Coumadin tobacco abuse who presents to the emergency department with excruciating substernal chest pain that started within an hour of presentation. Associated with his symptoms is diaphoresis. His chest pain is excruciating. He described chest pain as someone sitting on his chest. His chest pain radiates to bilateral jaws into his bilateral arms where it feels numbed. He denies any aggravating or ameliorating factors to the pain. [facility] Medical History Abdominal aortic aneurysm (AAA) Abnormal PFT Anxiety Atherosclerosis of coronary artery bypass graft of [place] heart with angina pectoris Blood in stool Chronic HFrEF (heart failure with reduced ejection fraction) COPD (chronic obstructive pulmonary disease) Depression Depression with anxiety Descending aortic aneurysm Diverticulosis Esophageal stricture Essential (primary) hypertension GERD (gastroesophageal reflux disease) Hemangioma History of CVA (cerebrovascular accident) (02/07/21) History of non-ST elevation myocardial infarction (NSTEMI) (02/07/21) HLD (hyperlipidemia) Hypersomnia Hypomagnesemia syndrome Ischemic cardiomyopathy Left lower lobe pulmonary nodule Neuropathic pain Nicotine dependence LETTY (obstructive sleep apnea) Osteoporosis PAF (paroxysmal atrial fibrillation) Peripheral vascular occlusive disease Rheumatoid arthritis Right bundle branch block (RBBB) Right ventricular systolic dysfunction Smoking greater than 40 pack years Stroke Testicular pain Thoracic aortic aneurysm (TAA) TIA (transient ischemic attack) Tinnitus Home Medications magnesium oxide 400 mg PO DAILY supplement 11/07/18 [History Last Taken 04/20/20] pantoprazole 40 mg tablet,delayed release 40 mg PO BID stomach 11/15/18 [History Last Taken 05/20/20] amitriptyline 25 mg tablet 25 mg PO QHS Depression 08/17/19 [History Last Taken 04/20/20] alendronate 70 mg tablet 70 mg PO QWEEK osteoporosis 03/15/20 [History Last Taken 04/15/20] gabapentin 600 mg tablet 600 mg PO 4X/DAY nerve pain 03/15/20 [History Last Taken 05/20/20] empagliflozin 10 mg tablet (Jardiance) 10 mg PO DAILY diabetes 09/13/20 [History Last Taken Unknown] furosemide 40 mg tablet 40 mg PO DAILY water pill 09/13/20 [History Last Taken Unknown] docusate sodium 50 mg capsule 50 mg PO DAILY 10/21/20 [History Last Taken Unknown] potassium chloride 20 mEq tablet,extended release 20 meq PO DAILY 11/11/20 [History Last Taken Unknown] clopidogrel 75 mg tablet 75 mg PO DAILY anti platelet #90 tabs 11/21/20 [Rx Last Taken Unknown] metoprolol succinate 50 mg tablet,extended release 24 hr 50 mg PO BID BP #180 tabs 03/06/21 [Rx Last Taken Unknown] tramadol 50 mg tablet 50 mg PO Q8H PRN Pain 03/06/21 [History Last Taken Unknown] isosorbide mononitrate 60 mg tablet,extended release 24 hr 60 mg PO BID #180 tabs 03/19/21 [Rx Last Taken Unknown] nitroglycerin 0.4 mg sublingual tablet 0.4 mg sublingual Q5M PRN Pain #100 tabs 03/19/21 [Rx Last Taken Unknown] warfarin 4 mg tablet 4 mg PO DAILY 06/04/21 [History Last Taken Unknown] ondansetron 4 mg disintegrating tablet 4 mg PO Q6H PRN nausea and vomiting #14 tabs 06/05/21 [Rx Last Taken Unknown] amlodipine 2.5 mg tablet 2.5 mg PO DAILY #30 tabs 06/17/21 [Rx Last Taken Unknown] ergocalciferol (vitamin D2) 1,250 mcg (50,000 unit) capsule 50,000 unit PO QWEEK #24 caps 06/17/21 [Rx Last Taken Unknown] lisinopril 5 mg tablet 5 mg PO DAILY 06/30/21 [History Last Taken Unknown] ipratropium 0.5 mg-albuterol 3 mg (2.5 mg base)/3 mL nebulization soln 3 ml inhalation Q4H PRN shortness of breath or wheezing #180 mL 08/13/21 [Rx Last Taken Unknown] empagliflozin 10 mg tablet (Jardiance) 10 mg PO DAILY 09/06/21 [History Last Taken Unknown] rosuvastatin 40 mg tablet 1 tab PO DAILY 09/06/21 [History Last Taken Unknown] Allergy/AdvReac Type Severity Reaction Status Date / Time oxycodone [From Percocet] Allergy Severe dry heaves Verified 08/28/21 07:55 latex Allergy Unknown unknown Verified 08/28/21 07:55 acetaminophen Allergy Anaphylaxis Verified 08/28/21 07:55 [From Darvocet-N] diphenhydramine Allergy Rash Verified 08/28/21 07:55 [From Benadryl] NSAIDS (Non-Steroidal Allergy Anaphylaxis Verified 08/28/21 07:55 Anti-Inflamma Penicillins Allergy Anaphylaxis Verified 08/28/21 07:55 propoxyphene Allergy Anaphylaxis Verified 08/28/21 07:55 [From Darvocet-N] hydrocodone [From Vicodin] AdvReac Mild Nausea/Vom/ Verified 08/28/21 07:55 Diarrhea peppercorn AdvReac NEEDS Uncoded 08/28/21 07:55 FOLLOW-UP Family History Sister CVA (cerebral vascular accident) Heart disease Hypertension High cholesterol Diabetes Cancer lung cancer Father Arthritis Cancer myeloma Mother Arthritis Cancer Brain cancer Surgical History H/O coronary artery bypass surgery (01/28/12) History of angioplasty of peripheral vessel (01/2015) History of coronary angioplasty (08/09/20) History of coronary artery stent placement (10/22/19) History of implantable cardiac defibrillator (ICD) (09/15/17) History of left heart catheterization (05/20/20) History of left inguinal hernia repair S/P femoral-tibial bypass (12/28/18) Sebaceous cyst Social History household members: significant other Smoking Status: Current every day smoker tobacco type: cigarettes Tobacco: How many years used: 40 quit status: considering quitting alcohol intake: never substance use type: does not use caffeine: Yes (cola) Type: carbonated beverages Number of servings: 4 ROS ROS Narrative Pertinent positives and pertinent negatives as noted in HPI. All other systems were reviewed and are negative. Vital Signs Vital Signs Vital Signs: 09/06/21 19:54 09/06/21 20:01 Temperature 96.7 F L Temperature Source Temporal Pulse Rate 101 H Respiratory Rate 20 H 20 H Blood Pressure 134/85 H 140/84 H Blood Pressure Mean 101 Pulse Ox 90 Oxygen Delivery Method Room Air Weight Weight: 87.9 kg Body Mass Index (BMI) 30.3 Physical Exam Narrative Physical exam: General: Patient in excruciating distress secondary to chest pain. Head: Normocephalic, atraumatic, no tenderness Eyes: Vision is grossly intact. EOMI ENT, no trauma, moist mucous membranes, no rhinorrhea Neck: Nontender, full range of motion, no spinal tenderness, deformities, step-off CVS: Regular rate and rhythm. S1-S2 present. No murmur, gallop or rub. Respiratory : clear to auscultation bilaterally, chest wall nontender, no wheezing Abdomen: Soft, nontender, nondistended, normal bowel sounds, no masses : Deferred Back: Nontender, no CVA tenderness, no midline spinal tenderness, deformities, step-offs Extremities: Nontender full range of motion, no trauma Skin: Normal color, no trauma, abrasions Neuro: Alert, oriented, cranial nerves II through XII grossly intact. Psychiatry: Normal mood. Normal affect. Not depressed. Not anxious. Results Lab / Micro Data Result Diagrams: 09/06/21 19:58 09/06/21 19:58 Labs: Laboratory Results - last 24 hr 09/06/21 19:58: WBC 9.1, RBC 5.42, Hgb 16.9 H, Hct 48.8, MCV 90.0, MCH 31.2, MCHC 34.6, RDW Std Deviation 50.2 H, RDW Coeff of Jack 15.4 H, Plt Count 172, MPV 10.2, Immature Gran % (Auto) 0.200, Neut % (Auto) 56.2, Lymph % (Auto) 29.7, [place] % (Auto) 6.8, Eos % (Auto) 5.9 H, Baso % (Auto) 1.2 H, Absolute Neuts (auto) 5.1, Absolute Lymphs (auto) 2.71, Nucleated RBC % 0 Assessment & Plan Assessment/Plan (1) Acute coronary syndrome: PLAN: Plan Non-ST elevation OK Initial high sensitive troponin was 58. Repeat was 3000 257. Trend. EKG showed ST and T wave abnormality; right bundle branch block (not new compared to previous). Started on nitroglycerin drip at the emergency department and continued. Discussed with cardiology who recommended the patient be given full dose aspirin and started on heparin drip. Patient be admitted to the intensive care unit. Actual CXR image was independently visualized. No acute cardiopulmonary process was noted. I agree with radiologist interpretation. Plavix continued. Morphine as needed for pain ordered We will check lipid panel. Statin: Home statin continued Imdur; metoprolol; and lisinopril continued parameters Cardiology consult Hypertension Patient with episodes of hypotension and generally showed blood pressure. Continue home blood pressure medications with parameters. Hold home amlodipine. Trend blood pressure and adjust blood pressure medications. CHF Stable Review of record showed that echocardiogram on 02/11/2021 showed ejection fraction of 20 to 25%. Lasix continued. Observed on telemetry. Per discussion with cardiology echocardiogram ordered. Diabetes mellitus Patient with mild hyperglycemia on presentation Home Jardiance continued. Monitor Accu-Cheks Correction scale insulin ordered. Atrial fibrillation Stable Hold Coumadin while on heparin. Trend PT/INR. DVT prophylaxis ordered. Charges/Coding Visit Charges Inpatient E&M: 85188 Init Hosp L3
[2021-09-06] MEDS: [UNRECOGNIZED DRUG - OTHER] 3 MG IV (20:11)
[2021-09-06 20:14] LABS: Prothrombin Time (Protime)PT. 13.1 SECONDS (11.7-14.9)
[2021-09-06 20:15] LABS: Partial Thromboplast Time 30.8 Seconds (24.1-36.2)
[2021-09-06 20:25] LABS: Anion Gap 10 (5-15); BUN 16 mg/dL (7-18); BUN/Creat Ratio 11.1 RATIO (10-20); Calcium,Total 9.5 mg/dL (8.5-10.1); Chloride 103 mmol/L (98-107); Creatinine, Serum 1.44 mg/dL (0.70-1.30); EST Glomerular Filtration Rate 53 mL/min (>60); Est Glom Filt Rate - Afr Amer 65 mL/min (>60); Estimated Creatinine Clearance 51.64 ml/min; Glucose 141 mg/dL (74-106); Potassium 3.9 mmol/L (3.5-5.1); Sodium Level 138 mmol/L (136-145); Troponin-I HS 58 pg/mL (3.0-78.0)
[2021-09-06] MEDS: Aspirin 81 MG TAB.CHEW 324 MG PO ×2 (20:30→21:26)
--- NOTE | 2021-09-06 20:37 | ED.RN ---
Jarad sends in first EKG at 1922 that reads STEMI. Per Dr Nuñez it is not a STEMI, will wait for EKG on arrival. Jarad calls report and sends another EKG at 1931 that still states STEMI squad reports patient with crushing chest pain and diaphoresis. Dr Nuñez remains stating no STEMI at this time. Jarad calls again at 1950 stating patients defib has gone off twice, patient is conscious with a pulse. Pt arrives to ED at 1953 our EKG does not show STEMI. Dr Nuñez sends EKGs electronically to Dr Guzman. Dr Guzman calls ED at 2000 confirming STEMI, STEMI called at 2000. 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
--- NOTE | 2021-09-06 20:42 | ED.RN ---
REPORT CALLED TO DUNG SALMERON.
--- NOTE | 2021-09-06 20:55 | CM.ED ---
KRISTINA Note KRISTINA responded to STEMI alert. RN Erwin had called patient's significant other and left voice mail message for her. NO other family present at this time. KRISTINA requested triage staff update this flex o writer operator when patient's significant other presents to the ED. KRISTINA remains available. Amy HOANG
--- NOTE | 2021-09-06 21:00 | ECHOD_ITS ---
Reason For Study: Chest pain Procedure This was a 2D Doppler, Color Flow transthoracic echocardiogram. The study was technically difficult. Exam performed portable in ICU/CCU. Left Ventricle Normal LV size. Moderately severe segmental systolic dysfunction (see wall motion). The estimated ejection fraction is 30 %. Stage 1 diastolic dysfunction. The rest of the wall segments are hypokinetic. Right Ventricle Normal RV size. Normal systolic function. Atria Normal left atrium. Normal right atrium. Pulmonic Valve Normal pulmonic valve. Great Vessels Normal aortic root. The pulmonary artery is normal size. Normal inferior vena cava. Pericardium/Pleural No pericardial effusion. Medication Diluted definity 4ml given slow IV push to enhance endocardial definition. MMode/2D Measurements & Calculations LVIDd: 5.2 cm IVSd: 1.1 cm Ao root diam: 3.2 cm LVIDs: 4.2 cm LVPWd: 1.3 cm FS: 19.8 % LAV(MOD-bp): 32.9 ml LVAd ap4: 35.1 cm2 LVAd ap2: 32.2 cm2 LAV(MOD-bp) Indexed: 16.5 ml/m2 LVLd ap4: 8.5 cm LVLd ap2: 8.2 cm LAV(MOD-sp2): 28.0 ml EDV(MOD-sp4): 119.4 ml EDV(MOD-sp2): 107.7 ml LAV(MOD-sp4): 35.6 ml EDV(sp4-el): 122.6 ml EDV(sp2-el): 107.5 ml LVAs ap4: 28.1 cm2 LVAs ap2: 23.3 cm2 LVLs ap4: 7.9 cm LVLs ap2: 7.4 cm ESV(MOD-sp4): 82.4 ml ESV(MOD-sp2): 61.7 ml ESV(sp4-el): 84.6 ml ESV(sp2-el): 62.8 ml EF(MOD-sp4): 31.0 % EF(MOD-sp2): 42.7 % EF(sp4-el): 31.0 % SV(MOD-sp4): 37.0 ml SV(MOD-sp2): 46.0 ml SV(sp4-el): 37.9 ml LA A4 area: 15.3 cm2 LA dimension(2D): 3.1 cm RA A4 area: 15.3 cm2 Doppler Measurements & Calculations MV E max timmy: 52.5 cm/sec Lat Peak E' Timmy: 4.0 cm/sec Med Peak E' Timmy: 6.7 cm/sec MV A max timmy: 71.9 cm/sec E/E' lat: 13.1 E/E' med: 7.8 MV E/A: 0.73 Ao V2 max: 115.0 cm/sec LV V1 max: 96.9 cm/sec PA V2 max: 70.0 cm/sec Ao max P.3 mmHg LV V1 max P.8 mmHg Ao V2 mean: 76.6 cm/sec LV V1 mean P.0 mmHg Ao mean P.8 mmHg LV V1 mean: 66.9 cm/sec Ao V2 VTI: 24.9 cm LV V1 VTI: 18.0 cm ECHO/Echo Complete W/ Contrast Interpretation Summary Normal LV size. Moderately severe segmental systolic dysfunction (see wall motion). The estimated ejection fraction is 30 %. The rest of the wall segments are hypokinetic. Stage 1 diastolic dysfunction. Ordering Physician: Virgil Orantes Referring Physician: Camille Guzman Performed By: Evelyne Dang RDCS
--- NOTE | 2021-09-06 21:14 | PCM.CONS.C ---
Assessment & Plan Assessment/Plan (1) History of coronary angioplasty: (2) H/O coronary artery bypass surgery: (3) History of coronary artery stent placement: (4) Right bundle branch block (RBBB): (5) History of implantable cardiac defibrillator (ICD): (6) Peripheral vascular occlusive disease: (7) Abdominal aortic aneurysm (AAA): QUALIFIERS: Presence of rupture: without rupture (8) Left lower lobe pulmonary nodule: (9) LETTY (obstructive sleep apnea): (10) FDC current use of anticoagulant: (11) Acute coronary syndrome: PLAN: 61-year-old patient brought by EMS as emergency to [facility] ER with symptoms of chest pain. Symptoms gradually improved however he still having chest discomfort while in the ER. And patient has been on anticoagulation with warfarin. Also has shock twice by the ICD device according to history This patient has extensive cardiac history In 2012 had CABG in [place] and subsequently in 2018 he had ICD device in [place] Has repeated cardiac catheterization x4 here at [facility] from 2018 up to July 2020 I reviewed the cardiac catheterization films in the Production Counter. Other medical problem include history of CVA, essential hypertension, hyperlipidemia, peripheral vascular disease, abdominal aortic aneurysm and tobacco abuse Findings revealed the following; 1. Left main is patent normal angiographically bifurcating into LAD and the left circumflex 2. His LAD had a long segment of stent from proximal to distal left anterior descending and had in-stent restenosis requiring PCI and stent using drug-eluting stent 3. Patient also had a long segment of stent to the left circumflex artery using drug-eluting stent 4. His RCA is occluded proximally, [id number] collaterals demonstrated 5. Graft angiography LEHMAN to LAD is nonfunctional with occluded SVG graft to RCA and SVG graft to left circumflex His ejection fraction has been around 35% with segmental area of hypokinesia noted in the anteroapical and inferobasal This patient has history of stroke paroxysmal A. fib Cardiac care plan recommendations; 1. The EKG showed right bundle branch block with age indeterminate anterior and inferior DC 2. We will admit the patient to CCU and will start on treatment with heparin IV, nitroglycerin IV, will resume aspirin, beta-cesar, ANJALI inhibitor and statin. Will hold on the warfarin 3. The initial set of troponin is normal we we will have 3 sets of troponins and echocardiogram on Wednesday Based on clinical progression and further evaluation will discuss possible need of repeat cardiac catheterization on Wednesday. Preferred approach will be from the right radial artery his bypass graft has been occluded as well as a RCA 4. Patient primary advertising rep is Dr. Albert, will discuss plan with his primary advertising rep HPI Consult Data Date of Consult: 09/06/21 HPI Narrative Reason for Consultation: Acute coronary syndrome/shocked twice by the ICD device HPI Narrative: SALAZAR HOLT, is a 61 M who presents [facility] Medical History Abdominal aortic aneurysm (AAA) Abnormal PFT Anxiety Atherosclerosis of coronary artery bypass graft of [place] heart with angina pectoris Blood in stool Chronic HFrEF (heart failure with reduced ejection fraction) COPD (chronic obstructive pulmonary disease) Depression Depression with anxiety Descending aortic aneurysm Diverticulosis Esophageal stricture Essential (primary) hypertension GERD (gastroesophageal reflux disease) Hemangioma History of CVA (cerebrovascular accident) (02/07/21) History of non-ST elevation myocardial infarction (NSTEMI) (02/07/21) HLD (hyperlipidemia) Hypersomnia Hypomagnesemia syndrome Ischemic cardiomyopathy Left lower lobe pulmonary nodule Neuropathic pain Nicotine dependence LETTY (obstructive sleep apnea) Osteoporosis PAF (paroxysmal atrial fibrillation) Peripheral vascular occlusive disease Rheumatoid arthritis Right bundle branch block (RBBB) Right ventricular systolic dysfunction Smoking greater than 40 pack years Stroke Testicular pain Thoracic aortic aneurysm (TAA) TIA (transient ischemic attack) Tinnitus Home Medications magnesium oxide 400 mg PO DAILY supplement 11/07/18 [History Last Taken 04/20/20] pantoprazole 40 mg tablet,delayed release 40 mg PO BID stomach 11/15/18 [History Last Taken 05/20/20] amitriptyline 25 mg tablet 25 mg PO QHS Depression 08/17/19 [History Last Taken 04/20/20] alendronate 70 mg tablet 70 mg PO QWEEK osteoporosis 03/15/20 [History Last Taken 04/15/20] gabapentin 600 mg tablet 600 mg PO 4X/DAY nerve pain 03/15/20 [History Last Taken 05/20/20] empagliflozin 10 mg tablet (Jardiance) 10 mg PO DAILY diabetes 09/13/20 [History Last Taken Unknown] furosemide 40 mg tablet 40 mg PO DAILY water pill 09/13/20 [History Last Taken Unknown] docusate sodium 50 mg capsule 50 mg PO DAILY 10/21/20 [History Last Taken Unknown] potassium chloride 20 mEq tablet,extended release 20 meq PO DAILY 11/11/20 [History Last Taken Unknown] clopidogrel 75 mg tablet 75 mg PO DAILY anti platelet #90 tabs 11/21/20 [Rx Last Taken Unknown] metoprolol succinate 50 mg tablet,extended release 24 hr 50 mg PO BID BP #180 tabs 03/06/21 [Rx Last Taken Unknown] tramadol 50 mg tablet 50 mg PO Q8H PRN Pain 03/06/21 [History Last Taken Unknown] isosorbide mononitrate 60 mg tablet,extended release 24 hr 60 mg PO BID #180 tabs 03/19/21 [Rx Last Taken Unknown] nitroglycerin 0.4 mg sublingual tablet 0.4 mg sublingual Q5M PRN Pain #100 tabs 03/19/21 [Rx Last Taken Unknown] warfarin 4 mg tablet 4 mg PO DAILY 06/04/21 [History Last Taken Unknown] ondansetron 4 mg disintegrating tablet 4 mg PO Q6H PRN nausea and vomiting #14 tabs 06/05/21 [Rx Last Taken Unknown] amlodipine 2.5 mg tablet 2.5 mg PO DAILY #30 tabs 06/17/21 [Rx Last Taken Unknown] ergocalciferol (vitamin D2) 1,250 mcg (50,000 unit) capsule 50,000 unit PO QWEEK #24 caps 06/17/21 [Rx Last Taken Unknown] lisinopril 5 mg tablet 5 mg PO DAILY 06/30/21 [History Last Taken Unknown] ipratropium 0.5 mg-albuterol 3 mg (2.5 mg base)/3 mL nebulization soln 3 ml inhalation Q4H PRN shortness of breath or wheezing #180 mL 08/13/21 [Rx Last Taken Unknown] empagliflozin 10 mg tablet (Jardiance) 10 mg PO DAILY 09/06/21 [History Last Taken Unknown] rosuvastatin 40 mg tablet 1 tab PO DAILY 09/06/21 [History Last Taken Unknown] Allergy/AdvReac Type Severity Reaction Status Date / Time oxycodone [From Percocet] Allergy Severe dry heaves Verified 08/28/21 07:55 latex Allergy Unknown unknown Verified 08/28/21 07:55 acetaminophen Allergy Anaphylaxis Verified 08/28/21 07:55 [From Darvocet-N] diphenhydramine Allergy Rash Verified 08/28/21 07:55 [From Benadryl] NSAIDS (Non-Steroidal Allergy Anaphylaxis Verified 08/28/21 07:55 Anti-Inflamma Penicillins Allergy Anaphylaxis Verified 08/28/21 07:55 propoxyphene Allergy Anaphylaxis Verified 08/28/21 07:55 [From Darvocet-N] hydrocodone [From Vicodin] AdvReac Mild Nausea/Vom/ Verified 08/28/21 07:55 Diarrhea peppercorn AdvReac NEEDS Uncoded 08/28/21 07:55 FOLLOW-UP Family History Sister CVA (cerebral vascular accident) Heart disease Hypertension High cholesterol Diabetes Cancer lung cancer Father Arthritis Cancer myeloma Mother Arthritis Cancer Brain cancer Surgical History H/O coronary artery bypass surgery (01/28/12) History of angioplasty of peripheral vessel (01/2015) History of coronary angioplasty (08/09/20) History of coronary artery stent placement (10/22/19) History of implantable cardiac defibrillator (ICD) (09/15/17) History of left heart catheterization (05/20/20) History of left inguinal hernia repair S/P femoral-tibial bypass (12/28/18) Sebaceous cyst Social History household members: significant other Smoking Status: Current every day smoker tobacco type: cigarettes Tobacco: How many years used: 40 quit status: considering quitting alcohol intake: never substance use type: does not use caffeine: Yes (cola) Type: carbonated beverages Number of servings: 4 Physical Exam Narrative Patient seen and evaluated in the ER Along with the nursing staff and the ER physician Still having symptoms of chest discomfort which is improving Cardiovascular exam; mid sternotomy scar, cardiac rhythm normal sinus S1-S2 regular No murmur no systolic or diastolic murmur, no pericardial rub Chest examination clear to auscultation bilateral. Risk Stratification Risk Stratification Applicable: Yes Age >/= 65: No >/= 3 CAD Risk Factors (HTN, HLD, DM, family hx of CAD, or current smoker): Yes Aspirin Use in the Past 7 Days: No Severe Angina (>/= episodes in 24 hours): Yes EKG ST Changes >/= 0.5mm: No Positive Cardiac Marker: No VIKKI Risk Stratification Score: 2 VIKKI % Risk: 8% Risk Objective Data Vital Signs: Vital Signs Temp Pulse Resp BP Pulse Ox O2 Del Method O2 Flow Rate 96.7 F L 97 18 122/76 H 98 Nasal Cannula 5 09/06/21 20:15 09/06/21 20:19 09/06/21 20:19 09/06/21 20:19 09/06/21 20:19 09/06/21 20:19 09/06/21 20:19 Oxygen Flow Rate (L/min) 5 Oxygen Delivery Method Nasal Cannula Weight: 189 lb 13.088 oz Body Mass Index (BMI) 29.7 Lab / Micro Data Result Diagrams: 09/06/21 19:58 09/06/21 19:58 Labs: Laboratory Results - last 24 hr 09/06/21 19:58: WBC 9.1, RBC 5.42, Hgb 16.9 H, Hct 48.8, MCV 90.0, MCH 31.2, MCHC 34.6, RDW Std Deviation 50.2 H, RDW Coeff of Jack 15.4 H, Plt Count 172, MPV 10.2, Immature Gran % (Auto) 0.200, Neut % (Auto) 56.2, Lymph % (Auto) 29.7, [place] % (Auto) 6.8, Eos % (Auto) 5.9 H, Baso % (Auto) 1.2 H, Absolute Neuts (auto) 5.1, Absolute Lymphs (auto) 2.71, Nucleated RBC % 0 09/06/21 19:58: PT 13.1, INR 1.0, APTT 30.8 09/06/21 19:58: Sodium 138, Potassium 3.9, Chloride 103, Carbon Dioxide 25.0, Anion Gap 10, BUN 16, Creatinine 1.44 H, Estim Creat Clear Calc 51.64, Est GFR (MDRD) Af Amer 65, Est GFR (MDRD) Non-Af 53 L, BUN/Creatinine Ratio 11.1, Glucose 141 H, Calcium 9.5, Troponin I High Sens 58 Rhythm Strip Rhythm Strip: Sinus Tach Rate: 100 Ectopy: None Cardiology Labs/Tests 09/06/21 19:58: WBC 9.1, RBC 5.42, Hgb 16.9 H, Hct 48.8, MCV 90.0, MCH 31.2, MCHC 34.6, Plt Count 172, MPV 10.2, Immature Gran % (Auto) 0.200, Neut % (Auto) 56.2, Lymph % (Auto) 29.7, [place] % (Auto) 6.8, Eos % (Auto) 5.9 H, Baso % (Auto) 1.2 H, Absolute Neuts (auto) 5.1, Nucleated RBC % 0 09/06/21 19:58: PT 13.1, INR 1.0, APTT 30.8 09/06/21 19:58: Sodium 138, Potassium 3.9, Chloride 103, Carbon Dioxide 25.0, Anion Gap 10, BUN 16, Creatinine 1.44 H, Est GFR (MDRD) Af Amer 65, Est GFR (MDRD) Non-Af 53 L, BUN/Creatinine Ratio 11.1, Glucose 141 H, Calcium 9.5 Rhythm: Normal sinus rhythm EKG: Right bundle branch block with age-indeterminate inferior and anterior DC Radiography Diagnostic Testing: Radiology Impression Chest X-Ray 09/06/21 20:00 IMPRESSION: Stable, nonacute portable x-ray examination of the chest. Electronically Signed: Nithin Martines MD ([place]) at 20:18 EDT Reading Location ID and State: [facility] / [place] , Service support ,
[2021-09-06] MEDS: Heparin Injection (Vial) 5,000 UNIT/ML VIAL 6000 UNIT IV (21:24)
[2021-09-06] MEDS: HEPARIN/D5w 25,000 UNITS 25,000 UNITS/250 ML IV.SOLN. 12 UNITS CONT INF (21:25)
[2021-09-06 23:00] LABS: Troponin-I HS 3257 pg/mL (3.0-78.0)
[2021-09-07] VITALS (29 sets, daily range): BP systolic 82–115; BP diastolic 54–84; PULSE 69–109; RESP 12–25; TEMP 36.4–36.8; O2SAT 91–96
[2021-09-07 05:35] LABS: Cholesterol 112 mg/dL (200); High Density Lipoprotein 24 mg/dL; Triglycerides 315 mg/dL; Very Low Density Lipoprotein 63 mg/dL (5-40)
[2021-09-07 05:57] LABS: Troponin-I HS 21796 pg/mL (3.0-78.0)
[2021-09-07 08:07] LABS: International Normalized Ratio 1.1; Prothrombin Time (Protime)PT. 14.2 SECONDS (11.7-14.9)
--- NOTE | 2021-09-07 09:11 | PCM.PN.HOSP ---
Subjective Subjective Follow-up on acute chest pain/non-STEMI, Patient was seen and examined. He still complains of chest pain. Remains in ICU. Vitals are stable. Objective Data Objective Data Vital Signs: Vital Signs Temp Pulse Resp BP Pulse Ox O2 Del Method O2 Flow Rate 97.7 F L 84 13 107/73 94 Nasal Cannula 5 09/07/21 00:00 09/07/21 06:00 09/07/21 06:00 09/07/21 06:00 09/07/21 07:55 09/07/21 07:55 09/07/21 07:55 Oxygen Flow Rate (L/min) 5 Oxygen Delivery Method Nasal Cannula Weight: 86 kg Body Mass Index (BMI) 29.7 Lab / Micro Data Result Diagrams: 09/06/21 19:58 09/06/21 19:58 Labs: Laboratory Results - last 24 hr 09/06/21 19:58: WBC 9.1, RBC 5.42, Hgb 16.9 H, Hct 48.8, MCV 90.0, MCH 31.2, MCHC 34.6, RDW Std Deviation 50.2 H, RDW Coeff of Jack 15.4 H, Plt Count 172, MPV 10.2, Immature Gran % (Auto) 0.200, Neut % (Auto) 56.2, Lymph % (Auto) 29.7, [place] % (Auto) 6.8, Eos % (Auto) 5.9 H, Baso % (Auto) 1.2 H, Absolute Neuts (auto) 5.1, Absolute Lymphs (auto) 2.71, Nucleated RBC % 0 09/06/21 19:58: PT 13.1, INR 1.0, APTT 30.8 09/06/21 19:58: Sodium 138, Potassium 3.9, Chloride 103, Carbon Dioxide 25.0, Anion Gap 10, BUN 16, Creatinine 1.44 H, Estim Creat Clear Calc 51.64, Est GFR (MDRD) Af Amer 65, Est GFR (MDRD) Non-Af 53 L, BUN/Creatinine Ratio 11.1, Glucose 141 H, Calcium 9.5, Troponin I High Sens 58 09/06/21 22:25: Troponin I High Sens 3257 H* 09/07/21 04:45: Triglycerides 315 H, Cholesterol 112, LDL Cholesterol 25, VLDL Cholesterol 63 H, HDL Cholesterol 24 L 07/24/22 04:45: Troponin I High Sens 04314 H* 09/07/21 07:40: PT 14.2, INR 1.1 Radiography Diagnostic Testing: Radiology Impression Chest X-Ray 09/06/21 20:00 IMPRESSION: Stable, nonacute portable x-ray examination of the chest. Electronically Signed: Nithin Martines MD (Brooks) at 20:18 EDT , Rhythm Strip Rhythm Strip: Sinus Tach Rate: 100 Ectopy: None Physical Exam Narrative Physical exam: General: Alert, oriented x3, cooperative, on 5L oxygen HEENT: Atraumatic Oral: Moist Mucosa Neck: Supple Lungs: Diminished to auscultation zara at the lung bases Cardiovascular: HS I+II, regular, no murmurs Abdomen: Bowel Sounds Present, Soft, Non Tender Extremities: No edema Skin: No rashes, No breakdown Neurological: Grossly intact Psych/Mental Status: Appropriate Assessment & Plan Assessment/Plan (1) NSTEMI, initial episode of care: PLAN: Plan 1. Acute chest pain/non-STEMI, patient with extensive cardiac history -CAD status post stents, CABG Admitting EKG shows some ST segment depressions with T wave inversions Troponins went from 58 -> 3257-> 33910 Triglycerides are 315, total cholesterol 115, LDL 25, HDL of 24 Continue on nitro drip, heparin drip, Integrilin, aspirin, isosorbide, lisinopril, statin, Plavix,m metoprolol Cardiology consulted and following 2. Acute hypoxic respiratory insufficiency, unclear etiology, currently on 5 L of oxygen Admitting chest x-ray is unremarkable Continue to wean off oxygen for SPO2 more than 94% Encourage use of incentive spirometer 3. BLAKE on CKD stage III, baseline creatinine is 1.1, admitted creatinine of 1.61 Creatinine is improved this morning to 1.44, continue to trend 4. Recent esophageal Botox/dilatation for esophageal stenosis in [facility] 5. Type 2 DM, blood sugars are controlled, Would hold Jardiance as patient is n.p.o. Continue to monitor blood sugars every 6h with insulin sliding scale Jardiance may be resumed when patient's acute event in #1 stable 6. Nicotine dependence, advised to quit, will continue on replacement 7. DVT PPx- Heparin SC Obtain medical records from [facility] Charges/Coding Visit Charges Inpatient E&M: 55279 Subs Hosp L3
[2021-09-07 09:39] LABS: Hematocrit 46.1 % (40-54); Hemoglobin 15.7 g/dL (13.0-16.5); Mean Corp Hgb Conc 34.1 g/dL (32-36); Mean Corpuscular Hgb 31.3 pg (27.0-32.0); Mean Platelet Vol. 9.8 fl (6.2-12.0); Platelet Count 160 K/mm3 (150-450); RBC Distribution Width CV 15.7 % (11.6-14.6); RBC Distribution Width SD 52.7 fl (35.1-43.9); Red Blood Count 5.01 M/mm3 (4.6-6.2); White Blood Count 8.1 K/mm3 (4.4-11.0)
[2021-09-07 09:46] LABS: Bedside Glucose 129 mg/dL (74-106)
[2021-09-07] MEDS: Aspirin 81 MG TAB.CHEW PO (10:17)
[2021-09-07] MEDS: Potassium Chloride Oral Tablet 20 MEQ PO (10:17)
[2021-09-07] MEDS: Isosorbide Mononitrate 60 MG Tablet PO ×2 (10:19→23:46)
[2021-09-07] MEDS: Furosemide 40 MG Tablet PO (10:19)
[2021-09-07] MEDS: Magnesium Chloride 64 MG Delay Rel.Tablet 128 MG PO (10:19)
[2021-09-07] MEDS: Gabapentin 600 MG Tablet PO ×4 (10:20→23:47)
[2021-09-07] MEDS: Pantoprazole Sodium 40 MG Tablet PO ×2 (10:20→23:46)
[2021-09-07] MEDS: Clopidogrel Bisulfate 75 MG Tablet PO (10:20)
[2021-09-07] MEDS: Metoprolol(XL)Succ 50 MG Tablet PO ×2 (10:21→23:46)
[2021-09-07] MEDS: Lisinopril 5 MG Tablet PO (10:21)
[2021-09-07] MEDS: CHLORHEXIDINE GLUC 2% CLOTH 1 EACH TOWELETTE TOPICAL (12:49)
[2021-09-07] MEDS: 0.9% Saline Lock 10 ML Syringe IV ×4 (12:50→21:31)
[2021-09-07] MEDS: Morphine 2 MG/ML Syringe IV ×3 (12:50→21:32)
--- NOTE | 2021-09-07 12:59 | PN.CARD_ITS ---
Subjective Subjective Patient seen and evaluated today at bedside along with the nursing staff Still having symptoms of chest pain which is relieved to some extent with the nitroglycerin and morphine. Objective Data Vital Signs: Vital Signs Temp Pulse Resp BP Pulse Ox O2 Del Method O2 Flow Rate 98.3 F 81 12 95/68 94 Nasal Cannula 5 09/07/21 12:00 09/07/21 12:00 09/07/21 12:00 09/07/21 12:00 09/07/21 12:00 09/07/21 12:00 09/07/21 12:00 Oxygen Flow Rate (L/min) 5 Oxygen Delivery Method Nasal Cannula Weight: 189 lb 9.561 oz Body Mass Index (BMI) 29.7 Intake & Output: Intake and Output for Last 24 Hours 09/05/21 09/06/21 09/07/21 23:59 23:59 23:59 Intake Total 244.37 / 244.37 Output Total 925 / 925 Balance -680.63 / -680.63 Lab / Micro Data Result Diagrams: 09/07/21 09:25 09/06/21 19:58 Labs: Laboratory Results - last 24 hr 09/06/21 19:58: WBC 9.1, RBC 5.42, Hgb 16.9 H, Hct 48.8, MCV 90.0, MCH 31.2, MCHC 34.6, RDW Std Deviation 50.2 H, RDW Coeff of Jack 15.4 H, Plt Count 172, MPV 10.2, Immature Gran % (Auto) 0.200, Neut % (Auto) 56.2, Lymph % (Auto) 29.7, [place] % (Auto) 6.8, Eos % (Auto) 5.9 H, Baso % (Auto) 1.2 H, Absolute Neuts (auto) 5.1, Absolute Lymphs (auto) 2.71, Nucleated RBC % 0 09/06/21 19:58: PT 13.1, INR 1.0, APTT 30.8 09/06/21 19:58: Sodium 138, Potassium 3.9, Chloride 103, Carbon Dioxide 25.0, Anion Gap 10, BUN 16, Creatinine 1.44 H, Estim Creat Clear Calc 51.64, Est GFR (MDRD) Af Amer 65, Est GFR (MDRD) Non-Af 53 L, BUN/Creatinine Ratio 11.1, Glucose 141 H, Calcium 9.5, Troponin I High Sens 58 09/06/21 22:25: Troponin I High Sens 3257 H* 09/07/21 04:45: Triglycerides 315 H, Cholesterol 112, LDL Cholesterol 25, VLDL Cholesterol 63 H, HDL Cholesterol 24 L 09/07/21 04:45: Troponin I High Sens 05778 H* 09/07/21 07:40: PT 14.2, INR 1.1 09/07/21 07:40: APTT 77.0 H 09/07/21 09:22: POC Glucose 129 H 09/07/21 09:25: WBC 8.1, RBC 5.01, Hgb 15.7, Hct 46.1, MCV 92.0, MCH 31.3, MCHC 34.1, RDW Std Deviation 52.7 H, RDW Coeff of Jack 15.7 H, Plt Count 160, MPV 9.8 Rhythm Strip Rhythm Strip: Sinus Tach Rate: 100 Ectopy: None Cardiology Labs/Tests 09/06/21 19:58: WBC 9.1, RBC 5.42, Hgb 16.9 H, Hct 48.8, MCV 90.0, MCH 31.2, MCHC 34.6, Plt Count 172, MPV 10.2, Immature Gran % (Auto) 0.200, Neut % (Auto) 56.2, Lymph % (Auto) 29.7, [place] % (Auto) 6.8, Eos % (Auto) 5.9 H, Baso % (Auto) 1.2 H, Absolute Neuts (auto) 5.1, Nucleated RBC % 0 09/06/21 19:58: PT 13.1, INR 1.0, APTT 30.8 09/06/21 19:58: Sodium 138, Potassium 3.9, Chloride 103, Carbon Dioxide 25.0, Anion Gap 10, BUN 16, Creatinine 1.44 H, Est GFR (MDRD) Af Amer 65, Est GFR (MDRD) Non-Af 53 L, BUN/Creatinine Ratio 11.1, Glucose 141 H, Calcium 9.5 09/07/21 04:45: Triglycerides 315 H, Cholesterol 112, LDL Cholesterol 25, VLDL Cholesterol 63 H, HDL Cholesterol 24 L 09/07/21 07:40: PT 14.2, INR 1.1 09/07/21 07:40: APTT 77.0 H 09/07/21 09:25: WBC 8.1, RBC 5.01, Hgb 15.7, Hct 46.1, MCV 92.0, MCH 31.3, MCHC 34.1, Plt Count 160, MPV 9.8 Rhythm: Normal sinus rhythm EKG right bundle branch block with age-indeterminate inferior and anterior PA: Radiography Diagnostic Testing: Radiology Impression Chest X-Ray 09/06/21 20:00 IMPRESSION: Stable, nonacute portable x-ray examination of the chest. Electronically Signed: Nithin Martines MD (Bro[place]) at 20:18 EDT , Physical Exam Narrative Seen and evaluated at bedside along with the nursing staff Alert oriented x3 quality assurance monitor final showed underlying normal sinus Cardiac exam S1-S2 regular Chest exam is clear auscultation bilateral. Assessment & Plan Assessment/Plan (1) History of coronary angioplasty: (2) Right bundle branch block (RBBB): (3) History of coronary artery stent placement: (4) History of CVA (cerebrovascular accident): (5) Essential (primary) hypertension: (6) HLD (hyperlipidemia): QUALIFIERS: Hyperlipidemia type: unspecified Qualified Code(s): E78.5 - Hyperlipidemia, unspecified (7) NSTEMI, initial episode of care: PLAN: 61-year-old patient with very extensive cardiac history Had long stent of the LAD and the circumflex with occluded RCA and occluded SVG graft to RCA and circumflex and nonfunctional LEHMAN Presented with symptoms of chest pain with significant elevation of cardiac biomarkers With a clinical diagnosis of non-ST elevation PA. Cardiac care plan recommendations; 1. I added Integrilin to his current treatment based on his renal function Noted creatinine today is 1.44 2. Patient has a severe ischemic cardiomyopathy with EF around 25% with ICD device Also had a history of paroxysmal A. fib His current rhythm is normal sinus patient has underlying right bundle branch block with age-indeterminate inferior and anterior PA 3. We will schedule for echo and cardiac catheterization tomorrow with possible PCI based on the cardiac cath findings By Dr. Albert 4. I reviewed and discussed his current medication in detail today with the nursing staff we will continue the current treatment. Which include dual antiplatelet with aspirin, Plavix, ANJALI inhibitor, statin, beta-cesar and also on IV nitro and morphine as needed.
[2021-09-07 13:06] LABS: Bedside Glucose 139 mg/dL (74-106)
[2021-09-07 14:06] LABS: Partial Thromboplast Time 70.3 Seconds (24.1-36.2)
[2021-09-07] MEDS: HEPARIN/D5w 25,000 UNITS 25,000 UNITS/250 ML IV.SOLN. 12 UNITS CONT INF (17:11)
[2021-09-07 17:31] LABS: Bedside Glucose 139 mg/dL (74-106)
[2021-09-07 22:00] LABS: Partial Thromboplast Time 52.4 Seconds (24.1-36.2)
[2021-09-07] MEDS: Amitriptyline 25 MG Tablet PO (23:46)
[2021-09-07] MEDS: Atorvastatin Calcium 80 MG Tablet PO (23:46)
[2021-09-07] MEDS: Insulin Lispro 100 UNIT/ML INSULN.PEN SC (23:48)
[2021-09-08] VITALS (34 sets, daily range): BP systolic 85–120; BP diastolic 40–93; PULSE 65–107; RESP 13–23; TEMP 36.4–37.5; O2SAT 88–98
[2021-09-08] MEDS: Morphine 2 MG/ML Syringe IV ×4 (00:24→20:56)
[2021-09-08 00:41] LABS: Bedside Glucose 156 mg/dL (74-106)
[2021-09-08 05:31] LABS: Hematocrit 43.6 % (40-54); Hemoglobin 14.8 g/dL (13.0-16.5); Mean Corp Hgb Conc 33.9 g/dL (32-36); Mean Corpuscular Volume 91.2 fL (80-94); Mean Platelet Vol. 10.2 fl (6.2-12.0); Platelet Count 174 K/mm3 (150-450); RBC Distribution Width CV 15.6 % (11.6-14.6); RBC Distribution Width SD 51.2 fl (35.1-43.9); Red Blood Count 4.78 M/mm3 (4.6-6.2); White Blood Count 9.1 K/mm3 (4.4-11.0)
[2021-09-08 05:39] LABS: International Normalized Ratio 1.1; Prothrombin Time (Protime)PT. 13.8 SECONDS (11.7-14.9)
[2021-09-08 06:55] LABS: Bedside Glucose 129 mg/dL (74-106)
--- NOTE | 2021-09-08 07:35 | PCM.PN.HOSP ---
Subjective Subjective Patient is a 61-year-old gentleman admitted with chest pain. Pain apparently radiated to his left arm and jaw. Admitted to the intensive care unit found to have elevated troponin consistent with acute non-STEMI. Cardiology consulted Objective Data Objective Data Vital Signs: Vital Signs Temp Pulse Resp BP Pulse Ox O2 Del Method O2 Flow Rate 98.1 F 80 15 86/58 L 95 Nasal Cannula 5 09/08/21 00:00 09/08/21 07:00 09/08/21 07:00 09/08/21 07:00 09/08/21 07:00 09/08/21 07:00 09/08/21 07:00 Oxygen Flow Rate (L/min) 5 Oxygen Delivery Method Nasal Cannula Weight: 86.6 kg Body Mass Index (BMI) 29.7 Intake & Output: Intake and Output for Last 24 Hours 09/06/21 09/07/21 09/08/21 23:59 23:59 23:59 Intake Total 1019.56 / 2079.56 1181.6 / 1181.6 Output Total 1725 / 2175 675 / 675 Balance -705.44 / -95.44 506.6 / 506.6 Lab / Micro Data Result Diagrams: 09/08/21 05:10 09/06/21 19:58 Labs: Laboratory Results - last 24 hr 09/07/21 07:40: PT 14.2, INR 1.1 09/07/21 07:40: APTT 77.0 H 09/07/21 09:22: POC Glucose 129 H 09/07/21 09:25: WBC 8.1, RBC 5.01, Hgb 15.7, Hct 46.1, MCV 92.0, MCH 31.3, MCHC 34.1, RDW Std Deviation 52.7 H, RDW Coeff of Jack 15.7 H, Plt Count 160, MPV 9.8 09/07/21 12:44: POC Glucose 139 H 09/07/21 13:48: APTT 70.3 H 09/07/21 17:04: POC Glucose 139 H 09/07/21 21:35: APTT 52.4 H 09/07/21 23:42: POC Glucose 156 H 09/08/21 05:10: PT 13.8, INR 1.1 09/08/21 05:10: WBC 9.1, RBC 4.78, Hgb 14.8, Hct 43.6, MCV 91.2, MCH 31.0, MCHC 33.9, RDW Std Deviation 51.2 H, RDW Coeff of Jack 15.6 H, Plt Count 174, MPV 10.2 09/08/21 06:38: POC Glucose 129 H Rhythm Strip Rhythm Strip: Sinus Tach Rate: 100 Ectopy: None Physical Exam Narrative GENERAL: cooperative HEENT: Atraumatic; EYES; Anicteric, Normal Conjunctiva NECK; supple, normal thyroid, RESPIRATORY: Diminished to auscultation CARDIOVASCULAR: Regular S1 S2, GI: soft, normoactive bowel sounds, : No Renal angle tenderness; EXTREMITIES: No edema, no clubbing, MUSCULOSKELETAL: no muscle wasting NEURO: Awake; no lateralizing signs. SKIN: No Rash PSYCH; Flat affect Assessment & Plan Assessment/Plan (1) NSTEMI, initial episode of care: PLAN: Plan Patient is a 61-year-old gentleman admitted with chest pain. Pain apparently radiated to his left arm and jaw. Admitted to the intensive care unit found to have elevated troponin consistent with acute non-STEMI. Cardiology consulted 1. Acute non-STEMI ? Patient has been admitted to the intensive care unit where he is currently being managed per protocol cardiology consulted plans for patient to undergo left heart catheterization 2. Coronary artery disease ? With history of CABG with subsequent PCI to an LAD lesion 3. Essential hypertension ? Patient apparently did experience brief episodes of hypotension. Home medications were resumed with close monitoring 4. Ischemic cardiomyopathy ? With EF of 25% status post AICD placement 5. Chronic congestive heart failure with reduced ejection fraction ? Currently stable 6. Paroxysmal A. fib ? Rate controlled on systemic anticoagulation with Coumadin which was held on admission switched to heparin pending patient's left heart catheterization 7. Diabetes mellitus type 2 ? Patient presented with hypoglycemia on admission patient is engenders this was continued also placed on Accu-Cheks before meals and at bedtime with sliding scale coverage 8. History of CVA ? On 02/07/2021 9. DVT prophylaxis ? Patient on heparin Charges/Coding Visit Charges Inpatient E&M: [id number] [facility] Hosp L3
[2021-09-08] MEDS: Aspirin 81 MG TAB.CHEW PO (09:09)
[2021-09-08] MEDS: Clopidogrel Bisulfate 75 MG Tablet PO (09:09)
[2021-09-08] MEDS: Albuterol 2.5 MG/3 ML VIAL.NEB. INHALATION (09:42)
[2021-09-08] MEDS: Budesonide Respules 0.5 MG/2 ML AMPUL.NEB. INHALATION ×2 (09:43→19:00)
[2021-09-08 12:20] LABS: Bedside Glucose 117 mg/dL (74-106)
--- NOTE | 2021-09-08 13:13 | PN.CARD_ITS ---
Subjective Subjective Seen and evaluated. Underwent cardiac catheterization this afternoon. The patient says that he was at [facility] approximately a week ago for esophageal dilatation and his medications were discontinued at that time. He then developed symptoms after he got home. Objective Data Vital Signs: Vital Signs Temp Pulse Resp BP Pulse Ox O2 Del Method O2 Flow Rate 98.5 F 73 13 96/57 L 96 Nasal Cannula 5 09/08/21 08:00 09/08/21 11:00 09/08/21 11:00 09/08/21 11:00 09/08/21 11:00 09/08/21 12:00 09/08/21 12:00 Oxygen Flow Rate (L/min) 5 Oxygen Delivery Method Nasal Cannula Weight: 190 lb 14.725 oz Body Mass Index (BMI) 29.7 Intake & Output: Intake and Output for Last 24 Hours 09/06/21 09/07/21 09/08/21 23:59 23:59 23:59 Intake Total 1019.56 / 2079.56 1281.6 / 1281.6 Output Total 1725 / 2175 1125 / 1125 Balance -705.44 / -95.44 156.6 / 156.6 Lab / Micro Data Result Diagrams: 09/08/21 05:10 09/06/21 19:58 Labs: Laboratory Results - last 24 hr 09/07/21 13:48: APTT 70.3 H 09/07/21 17:04: POC Glucose 139 H 09/07/21 21:35: APTT 52.4 H 09/07/21 23:42: POC Glucose 156 H 09/08/21 05:10: PT 13.8, INR 1.1 09/08/21 05:10: WBC 9.1, RBC 4.78, Hgb 14.8, Hct 43.6, MCV 91.2, MCH 31.0, MCHC 33.9, RDW Std Deviation 51.2 H, RDW Coeff of Jack 15.6 H, Plt Count 174, MPV 10.2 09/08/21 06:38: POC Glucose 129 H 09/08/21 11:56: POC Glucose 117 H Rhythm Strip Rhythm Strip: Sinus Tach Rate: 100 Ectopy: None Cardiology Labs/Tests 09/07/21 13:48: APTT 70.3 H 09/07/21 21:35: APTT 52.4 H 09/08/21 05:10: PT 13.8, INR 1.1 09/08/21 05:10: WBC 9.1, RBC 4.78, Hgb 14.8, Hct 43.6, MCV 91.2, MCH 31.0, MCHC 33.9, Plt Count 174, MPV 10.2 Rhythm: EKG: ECHO: Stress Test: Cardiac Cath: PCI: CT Surgery: Holter monitor: EPS: PPM: CXR: Chest CT Scan: Radiography Diagnostic Testing: Radiology Impression Echocardiogram 09/06/21 21:00 Interpretation Summary Normal LV size. Moderately severe segmental systolic dysfunction (see wall motion). The estimated ejection fraction is 30 %. The rest of the wall segments are hypokinetic. Stage 1 diastolic dysfunction. _ Ordering Physician: Virgil Orantes Referring Physician: Camille Guzman Performed By: Evelyne Dang RDCS Physical Exam Const alert, oriented x3 and no apparent distress General Appearance: cooperative HEENT hearing grossly normal bilaterally Head and Scalp: atraumatic Eyes EOMs intact bilaterally Neck General: normal visual inspection Chest inspection of chest normal and palpation of chest normal Resp normal respiratory effort Auscultation: clear to auscultation bilaterally Cardio regular rate, regular rhythm, S1 normal heart sound and S2 normal heart sound Jugular Venous Distention: JVD GI normal to inspection, nondistended, normoactive bowel sounds Extremity normal capillary refill and no pedal edema Peripheral Pulses: Yes pulses 2+ throughout and femoral pulses present Skin no rashes or lesions noted Neuro oriented x3 and CN's II-XII intact bilaterally Psych Appearance: grossly normal and appropriate Assessment & Plan Assessment/Plan (1) NSTEMI, initial episode of care: PLAN: Patient presents with non-ST elevation myocardial infarction. His cardiac catheterization today demonstrated the following: Normal left main coronary artery. Left anterior descending artery extensively stented with an area of high-grade stenosis approximately 80% noted in the mid LAD within the stent. Left circumflex artery which is stented within the mid segment with an area of stenosis of approximately 80% noted. Right coronary artery totally occluded noted previously. Previous coronary bypass grafts totally occluded. Based on the above angiographic findings would recommend PCI of the mid LAD and mid left circumflex artery. (2) H/O coronary artery bypass surgery: PLAN: Patient has coronary artery bypass surgery previously with all his grafts noted to be occluded. (3) History of coronary artery stent placement: PLAN: Patient with multiple stenting noted in the left anterior descending artery. The left circumflex artery is also heavily stented. The angiogram is as noted above. (4) PAF (paroxysmal atrial fibrillation): PLAN: History of paroxysmal atrial fibrillation with no episodes noted recently. (5) History of implantable cardiac defibrillator (ICD): PLAN: Status post implantable defibrillator placement. We will continue to follow in the device clinic. (6) Ischemic cardiomyopathy: PLAN: He does have a history of ischemic cardiomyopathy. His most recent echocardiogram done today demonstrates an ejection fraction of 30% with an akinetic apex. His inferior wall is also noted to be severely hypokinetic to akinetic. We will continue with aggressive guideline directed medical therapy. (7) Essential (primary) hypertension: PLAN: History of hypertension. Plan is to continue the current medical therapy. (8) HLD (hyperlipidemia): QUALIFIERS: Hyperlipidemia type: unspecified Qualified Code(s): E78.5 - Hyperlipidemia, unspecified PLAN: Aggressive risk factor modification with high intensity statin. Thank you for allowing me to participate in the care of your patient. Please don't hesitate to call if any issues arise.
--- NOTE | 2021-09-08 13:25 | CL.D_ITS ---
Patient Name: SALAZAR HOLT Study Date: 09/08/2021 Performing: Kevin Albert MD Ht: 66.92 inches 170 cm : 1960 Wt: 191.8 lbs 87 kg Age: 61 Gender: male BSA: 1.98 PROCEDURE(S) PERFORMED DC02-([id number])[facility] CLINICAL PROFILE AND INDICATIONS Indications: ACS <= 24 hrs Heart Failure: None Stress/Imaging Stress/Image Study Performed: No CAD Presentations: Non-STEMI. Symptom onset Date/Time: 09/06/21 Time Not Available CONCLUSIONS Severe coronary artery disease with totally occluded bypass grafts which were previously noted and pr eviously stented left anterior descending artery with focal high-grade stenosis noted within as well as circumflex artery previously stented with focal high-grade stenosis noted within. Left ventricula r systolic dysfunction present. RECOMMENDATIONS Referred for immediate PCI DESCRIPTION OF PROCEDURE The patient arrived to the procedure lab. The risks and benefits of the procedure as well as a full d escription of our services here and current unavailability of surgical backup were fully explained to the patient and/or their significant other prior to the catheterization. The Timeout was completed, verifying the correct patient and procedure. The patient's procedural site was prepped and draped in the usual fashion. Local anesthetic was given subcutaneously to right ulner region with Lidocaine 2%. Using a modified Seldinger technique, arterial access was obtained via the right ulner artery, a 6Fr sheath was inserted. Left Coronary Artery selective angiography was performed in multiple views usi ng a 5 Fr. 4.0 Spray catheter. Right Coronary Artery selective angiography was then performed in mult iple views using a 5 Fr. 4.0 Spray catheter. CORONARY ANGIOGRAPHY DOMINANCE: Right Dominant LEFT HEART ASSESSMENT Left Ventricular Ejection Fraction: by Echo 30 % Abnormal LV wall motion. Apical Akinesis. Anterior Hypokinesis - Severe. Inferior Mid Hypokinesis - M oderate LEFT MAIN: Mild calcification LEFT ANTERIOR DESCENDING ARTERY: Extensively stented left anterior descending artery with mid segment demonstrating a focal 80% stenotic lesion. Distal apical severe disease is also noted. Rest of the stent has approximately 30% in-stent stenosis CIRCUMFLEX ARTERY: Midsegment left circumflex artery stent with focal 80% stenosis noted within the s tent. Rest of the vessel is mildly diseased. RIGHT CORONARY ARTERY: OSTIAL RCA: is occluded COLLATERAL FLOW: Collateral flow from Left to Right COMPLICATIONS No Complications PROCEDURE MEDICATIONS Versed 1 mg IV Fentanyl 50 mcg IV Versed 1 mg IV Fentanyl 50 mcg IV Fentanyl 50 mcg IV Oxygen: 2 L/min via nasal cannula Heparin 3000 unit(s) IV 09/08/2021 12:52:39 Heparin 4000 unit(s) IV 09/08/2021 13:08:50 Nitro drip dc'd infusing from icu ^FreeText^ 09/08/2021 13:01:27 SUMMARY OF HEMODYNAMIC DATA Time AIR REST ECG 12:36:58 AO 97/71 (85) SA 12:56:22 Signed By Kevin Albert MD On 09/08/2021 1:24:23 PM Kevin Albert MD
--- NOTE | 2021-09-08 14:00 | EKG12_ITS ---
Test Reason : CP ADMIN Blood Pressure : / mmHG Vent. Rate : 076 BPM Atrial Rate : 076 BPM P-R Int : 186 ms QRS Dur : 138 ms QT Int : 434 ms P-R-T Axes : 029 103 021 degrees QTc Int : 488 ms Normal sinus rhythm Right bundle branch block Anterolateral infarct , age undetermined Abnormal ECG When compared with ECG of 06-SEP-2021 20:28, MANUAL COMPARISON REQUIRED, DATA IS UNCONFIRMED Confirmed by JULIO SMART, TABATHA ([id number]), social media editor MARILUZ PAGE ([id number]) on 09/09/2021 11:16:02 AM Referred By: Camille Guzman Confirmed By:TABATHA KIM MD
--- NOTE | 2021-09-08 14:18 | CRPH1.INST_ITS ---
General Education CAD and cardiac anatomy and function:: Patient communicates acknowledgment, Needs reinforcement Explanation of diagnoses and procedures:: Patient communicates acknowledgment, Needs reinforcement Sign/Symptoms of NE:: Patient communicates acknowledgment, Needs reinforcement Antiplatelet therapy: Patient communicates acknowledgment, Needs reinforcement Proper use of NTG-SL: Patient communicates acknowledgment, Needs reinforcement Emergency procedures and activation of EMS: Patient communicates acknowledgment, Needs reinforcement Compliance of all prescribed medications: Patient communicates acknowledgment, Needs reinforcement Smoking Patient Nicotine/Smoking Risk Factors Are:: Cigarettes Recommendations Include:: Smoking cessation strategies/Smoking packet, Participation in a smoking cessation program Nicotine/Smoking Response Code:: Patient communicates acknowledgment, Needs re inforcement Dyslipidemia Patient Dyslipidemia Risk Factors Are:: Total Cholesterol, Triglycerides, HDL, LDL Recommendations Include:: Lipid profile not available, Reviewed NCEP/ATP guidelines, Therapeutic Lifestyle Change dietary guidelines Dyslipidemia Response Code:: Patient communicates acknowledgment, Needs reinforcement Overweight/Obesity Patient Overweight/Obesity Risk Factors Are:: Overweight = 26-29 Recommendations Include:: Weight loss of 5-10%, Reduced calorie diet, Exercise 5-7 times/week Overweight/Obesity:: Patient communicates acknowledgment, Needs reinforcement Hypertension Recommendations Include:: Maintain BP <130/85, DASH dietary guidelines, Decrease/maintain normal body weight, Moderation of ETOH Hypertension:: Patient communicates acknowledgment, Needs reinforcement Heart Disease Patient Heart Disease Risk Factors Are:: Previous cardiac event Heart Disease Response Code:: Patient communicates acknowledgment, Needs reinforcement Diabetes Patient Diabetes Risk Factors Are:: No documented hx of diabetes Metabolic Syndrome Patient Metabolic Syndrome Risk Factors Are [3 of 5]:: Waist circumference > 35 [female] or 40 [male], Hypertension Recommendations Include:: Reinforce compliance to risk factor modifications, Encouraged follow-up with Primary Care Physician Metabolic Syndrome Response Code:: Patient communicates acknowledgment, Needs reinforcement Sedentary Patient Sedentary Risk Factors Are:: Lack of regular exercise Recommendations Include:: Aerobic exercise 5-7 times/week for 20-30 minutes continuously, Benefits of regular exercise, Discussed home walking program, Monitored Outpatient Cardiac Rehab Sedentary Response Code:: Patient communicates acknowledgment, Needs reinforcement Stress Recommendations Include:: Identification of stressors, and assessment of coping skills, Stress management techniques Stress Response Code:: Patient communicates acknowledgment, Needs reinforcement
--- NOTE | 2021-09-08 14:18 | CRPHASE1 ---
Patient Communication PHII Cardiac Rehab Discussed with Patient:: Yes Guide to Cardiac Rehab Given to Patient:: Yes Cardiac Rehab Facility Choice List Given to Patient:: Yes Choice Program [facility] CR PHII:: Communication Given to CR, Refer to [facility] Refer Phase II Cardiac Rehab:: Yes Sessions:: 36 sessions - 3 days/wk, 12 weeks Cardiac Rehabilitation Info Cardiac Rehabilitation Program Information: Cardiac Rehabilitation is important for patients like you who are recovering from a heart problem. Cardiac rehabilitation programs are recognized as integral to the continued care of the patient with coronary heart disease. The cardiac rehabilitation program is designed to optimize a patient's physical, psychological, and social functioning. Health critical care physician assistant work in cardiac rehabilitation programs and assist you with getting the treatments you need to get stronger and healthier - like exercise, healthy eating habits, and medications. Cardiac rehabilitation has been show to help people with heart problems live longer and have better life enjoyment than people who do not go to cardiac rehabilitation. Please contact the Cardiac Rehabilitation Program at [facility] at in two weeks if you have not heard from them.
--- NOTE | 2021-09-08 14:29 | CL.I_ITS ---
Patient Name: SALAZAR HOLT Study Date: 09/08/2021 Performing: Kae Reyes MD Ht: 67 inches 170 cm : 1960 Wt: 192.1 lbs 87 kg Age: 61 Gender: male BSA: 1.98 PROCEDURE(S) PERFORMED IC12-([id number])ROYCE W/WO PTCA, SINGLE CORONARY ARTERY IC12-([id number])ROYCE W/WO PTCA, SINGLE CORONARY ARTERY CLINICAL PROFILE AND CO-MORBIDITIES Indications: ACS <= 24 hrs Heart Failure: None Stress/Imaging Stress/Image Study Performed: No CAD Presentations: Non-STEMI. Symptom onset Date/Time: 09/06/21 Time Not Available CONCLUSIONS Successful ROYCE to ISR of mLCx. Successful Cutting balloon angioplasty to ISR of mLAD RECOMMENDATIONS DESCRIPTION OF PROCEDURE The patient arrived to the procedure lab. The risks and benefits of the procedure as well as a full d escription of our services here and current unavailability of surgical backup were fully explained to the patient and/or their significant other prior to the catheterization. The Timeout was completed, verifying the correct patient and procedure. The patient's procedural site was prepped and draped in the usual fashion. Local anesthetic was given subcutaneously to right ulner region with Lidocaine 2% Using a modified Seldinger technique,arterial access was obtained via the right ulner artery, a 6Fr s kerri was inserted. Left Coronary Artery selective angiography was performed in multiple views using a 5 Fr. 4.0 [place] catheter. Right Coronary Artery selective angiography was then performed in multipl e views using a 5 Fr. 4.0 [place] catheter.The images were reviewed and options discussed. A decision w as then made to proceed with an Intervention, IVUS or other adjunct procedure. 6fr radial Arterial sheath was exchanged for a 6 Fr cm 11 Sheath. xb3 Guide catheter was inserted and engaged into the LCA. emerge 3.00 x 8 Balloon catheter was advanced across lesion in the circumf santos, mid. PTCA balloon inflated at 8 atms for 8 secs. PTCA balloon inflated at 6 atms for 7 secs. PTC A balloon inflated at 6 atms for 7 secs. PTCA balloon inflated at 6 atms for 9 secs. Angiogram perfor med post balloon dilatation. PTCA balloon inflated at 6 atms for 5 secs. osiro 3.5 x 9 Drug Eluting s tent was advanced across the lesion in the circumflex, mid. Angiogram performed post stent deployment . bmw Guide wire was repositioned to the LAD emerge 3.00 x 8 Balloon catheter was advanced across les ion in the LAD, mid. PTCA balloon inflated at 6 atms for 4 secs. nc emerge 3.00 x 15 Balloon catheter was advanced across lesion in the LAD, mid. PTCA balloon inflated at 12 atms for 5 secs. PTCA balloo n inflated at 12 atms for 28 secs. PTCA balloon inflated at 12 atms for 15 secs. Angiogram performed post balloon dilatation. PTCA balloon inflated at 12 atms for 10 secs. PTCA balloon inflate d at 6 atms for 19 secs. wolverine 3.00 x 10 Balloon catheter was advanced across lesion in the LAD, mid. Angiogram performed post balloon dilatation. bmw Guide wire was exchanged for a j wire The art erial sheath was pulled and a TR Band was applied for hemostasis INTERVENTION INFORMATION LESION SITE: Circumflex (Mid) Lesion Complexity: High/C, chronic total occlusion: No, lesion at bifurcation: No, thrombus present: No, lesion length: 8 mm, culprit lesion: Yes, Previously treated lesion: Yes, In-stent restenosis: Ye s, In-stent Thrombosis: No, Previously treated with a stent: Yes Stent Type: with stent type unknown, Timeframe of previous treatment: Time unknown Pre Stenosis: 90 % Pre intervention VIKKI flow: 3 PROCEDURE: Drug Eluting Stent with pre dilatation. Post Stenosis: 0 % Post intervention VIKKI flow: 3 Lesion Devices: Vadim Sci EMERGE MR 3.00x08 BALLOON [facility] MR ROYCE 3.5x9 LESION SITE: LAD (Mid) Lesion Complexity: High/C, chronic total occlusion: No, lesion at bifurcation: No, thrombus present: No, lesion length: 10 mm, culprit lesion: Yes, Previously treated lesion: Yes, Timeframe of previous treatment: Time unknown, Previously treated with a stent: Yes Stent Type: with ROYCE, In-stent Thrombos is: No, In-stent restenosis: Yes Pre Stenosis: 80 % Pre intervention VIKKI flow: 3 PROCEDURE: Balloon Angioplasty Cutting Balloon Angioplasty There appears to be at least 2 layers of stents at this location Post Stenosis: 10 % Post intervention VIKKI flow: 3 Lesion Devices: Vadim Sci EMERGE MR 3.00x08 BALLOON Vadim Sci [place] EMERGE MR 3.00x15 BALLOON V[employer]im Sci [place] cutting balloon 3.0x10 COMPLICATIONS No Complications PROCEDURE MEDICATIONS Versed 1 mg IV Fentanyl 50 mcg IV Versed 1 mg IV Fentanyl 50 mcg IV Fentanyl 50 mcg IV Fentanyl 25 mcg IV Oxygen: 2 L/min via nasal cannula Heparin 3000 unit(s) IV 09/08/2021 12:52:39 Heparin 4000 unit(s) IV 09/08/2021 13:08:50 Nitro drip dc'd infusing from icu ^FreeText^ 09/08/2021 13:01:27 SUMMARY OF HEMODYNAMIC DATA Time AIR REST ECG 12:36:58 AO 97/71 (85) SA 12:56:22 Signed By Kae Reyes MD On 09/08/2021 14:31:53 Kae Reyes MD
--- NOTE | 2021-09-08 14:36 | EKG12_ITS ---
Test Reason : POST-CATH Blood Pressure : / mmHG Vent. Rate : 072 BPM Atrial Rate : 072 BPM P-R Int : 196 ms QRS Dur : 144 ms QT Int : 440 ms P-R-T Axes : 039 110 -31 degrees QTc Int : 481 ms Suspect unspecified pacemaker failure Sinus rhythm with sinus arrhythmia with occasional Premature ventricular complexes Right bundle branch block Anterolateral infarct , age undetermined Abnormal ECG When compared with ECG of 06-SEP-2021 23:41, MANUAL COMPARISON REQUIRED, DATA IS UNCONFIRMED Confirmed by JULIO SMART, TABATHA ([id number]), market editor MARILUZ PAGE ([id number]) on 09/10/2021 1:01:09 PM Referred By: Camille Guzman Confirmed By:TABATHA KIM MD
[2021-09-08] MEDS: 0.9% Normal Saline 1,000 ML 60 ML IV (14:38)
[2021-09-08] MEDS: Ipratropium/Albuterol Sulfate 3 ML AMPUL.NEB INHALATION ×2 (14:44→19:00)
[2021-09-08] MEDS: Gabapentin 600 MG Tablet PO ×3 (14:52→20:56)
--- NOTE | 2021-09-08 15:15 | CASEMGMT ---
RN CARLYN Face to Face with patient for initial transition planning/care coordination assessment. RN CM introduced self and role at [facility]. Patient lying in bed, alert and oriented, significant other at bedside. Patient willing to participate in assessment and is able to answer all questions appropriately. Care providers, pharmacy, and demographics verified. Patient wishes to discharge home, denies need for home health at this time. Patient states he has no further needs or concerns at this time. CM to follow for discharge planning needs that may arise. PCP: [facility] Specialists: Roosevelt, livestock commission agent; Esvin, associate professor of chemistry; rosita Patel, [facility] Preferred Pharmacy: [facility] retail Insurance: [employer] Pieces Prescription Benefit: yes Living Will/HPOA: yes, significant other, ISIDORO Orantes: significant other Living Arrangements: Patient lives with significant other in a mobile home with 5 platform steps and railing to enter. Patient states he is independent at home. Transportation: self, significant other DME/HHC: Patient states he has cane, walker, grab bars, nebulizer, and pulse ox at home. Patient states he has previously been to [place]. Patient has had HHC in the past but could not recall agency. Disposition Plan: Patient to discharge home with family support and follow-up plans in place. Frances SAMUELS, RN, CM
[2021-09-08] MEDS: Insulin Lispro 100 UNIT/ML INSULN.PEN SC ×2 (17:42→23:30)
[2021-09-08 18:06] LABS: Bedside Glucose 203 mg/dL (74-106)
[2021-09-08] MEDS: Atorvastatin Calcium 80 MG Tablet PO (20:56)
[2021-09-08] MEDS: 0.9% Saline Lock 10 ML Syringe IV (20:56)
[2021-09-08] MEDS: Metoprolol(XL)Succ 50 MG Tablet PO (20:57)
[2021-09-08] MEDS: Pantoprazole Sodium 40 MG Tablet PO (20:58)
[2021-09-08] MEDS: Amitriptyline 25 MG Tablet PO (20:58)
[2021-09-08] MEDS: Isosorbide Mononitrate 60 MG Tablet PO (20:58)
[2021-09-08 23:50] LABS: Bedside Glucose 179 mg/dL (74-106)
[2021-09-09] VITALS (18 sets, daily range): BP systolic 90–124; BP diastolic 56–84; PULSE 88–107; RESP 16–24; TEMP 37–37.2; O2SAT 85–97
[2021-09-09] MEDS: Morphine 2 MG/ML Syringe IV ×2 (03:19→07:53)
[2021-09-09] MEDS: Insulin Lispro 100 UNIT/ML INSULN.PEN SC (05:39)
[2021-09-09 05:58] LABS: Hematocrit 44.2 % (40-54); Hemoglobin 14.5 g/dL (13.0-16.5); Mean Corp Hgb Conc 32.8 g/dL (32-36); Mean Corpuscular Hgb 29.9 pg (27.0-32.0); Mean Corpuscular Volume 91.1 fL (80-94); Mean Platelet Vol. 10.2 fl (6.2-12.0); Platelet Count 168 K/mm3 (150-450); RBC Distribution Width CV 15.6 % (11.6-14.6); RBC Distribution Width SD 51.6 fl (35.1-43.9); Red Blood Count 4.85 M/mm3 (4.6-6.2); White Blood Count 9.1 K/mm3 (4.4-11.0)
[2021-09-09 06:00] LABS: Bedside Glucose 157 mg/dL (74-106)
[2021-09-09 06:09] LABS: International Normalized Ratio 1.1; Prothrombin Time (Protime)PT. 13.9 SECONDS (11.7-14.9)
[2021-09-09 06:15] LABS: ALB/GLOB Ratio 0.8 RATIO (0.9-2.4); AST(SGOT) 42 U/L (15-37); Alanine Aminotransfer ALT/SGPT 39 U/L (16-61); Alkaline Phosphatase 77 U/L (45-117); Anion Gap 6 (5-15); BUN 21 mg/dL (7-18); BUN/Creat Ratio 16.3 RATIO (10-20); Calcium,Total 9.5 mg/dL (8.5-10.1); Chloride 101 mmol/L (98-107); Creatinine, Serum 1.29 mg/dL (0.70-1.30); EST Glomerular Filtration Rate 61 mL/min (>60); Est Glom Filt Rate - Afr Amer 73 mL/min (>60); Estimated Creatinine Clearance 57.65 ml/min; Globulin 3.9 g/dL (2.2-4.2); Glucose 160 mg/dL (74-106); Potassium 4.4 mmol/L (3.5-5.1); Protein, Total 6.9 g/dL (6.4-8.2); Sodium Level 133 mmol/L (136-145)
[2021-09-09] MEDS: Ipratropium/Albuterol Sulfate 3 ML AMPUL.NEB INHALATION (06:42)
[2021-09-09] MEDS: Budesonide Respules 0.5 MG/2 ML AMPUL.NEB. INHALATION (06:42)
--- NOTE | 2021-09-09 07:20 | PN.HOSP_ITS ---
Subjective Subjective Patient underwent underwent left heart catheterization and had stent placed in his LAD and left circumflex seen this morning no chest pain plan is for patient to be assessed for possible discharge Objective Data Objective Data Vital Signs: Vital Signs Temp Pulse Resp BP Pulse Ox O2 Del Method O2 Flow Rate 99 F 96 17 116/67 94 Nasal Cannula 2 09/09/21 00:00 09/09/21 07:00 09/09/21 07:00 09/09/21 07:00 09/09/21 07:00 09/09/21 07:00 09/09/21 07:00 Oxygen Flow Rate (L/min) 2 Oxygen Delivery Method Nasal Cannula Weight: 86.8 kg Body Mass Index (BMI) 29.7 Intake & Output: Intake and Output for Last 24 Hours 09/07/21 09/08/21 09/09/21 23:59 23:59 23:59 Intake Total 1019.56 / 2079.56 1661.50 / 1661.50 600 / 600 Output Total 1725 / 2175 1525 / 1525 1200 / 1200 Balance -705.44 / -95.44 136.50 / 136.50 -600 / -600 Lab / Micro Data Result Diagrams: 09/09/21 05:40 09/09/21 05:40 Labs: Laboratory Results - last 24 hr 09/08/21 11:56: POC Glucose 117 H 09/08/21 17:41: POC Glucose 203 H 09/08/21 23:29: POC Glucose 179 H 09/09/21 05:37: POC Glucose 157 H 09/09/21 05:40: PT 13.9, INR 1.1 09/09/21 05:40: WBC 9.1, RBC 4.85, Hgb 14.5, Hct 44.2, MCV 91.1, MCH 29.9, MCHC 32.8, RDW Std Deviation 51.6 H, RDW Coeff of Jack 15.6 H, Plt Count 168, MPV 10.2 09/09/21 05:40: Sodium 133 L, Potassium 4.4, Chloride 101, Carbon Dioxide 26.0, Anion Gap 6, BUN 21 H, Creatinine 1.29, Estim Creat Clear Calc 57.65, Est GFR (MDRD) Af Amer 73, Est GFR (MDRD) Non-Af 61, BUN/Creatinine Ratio 16.3, Glucose 160 H, Calcium 9.5, Total Bilirubin 0.60, AST 42 H, ALT 39, Alkaline Phosphatase 77, Total Protein 6.9, Albumin 3.0 L, Globulin 3.9, Albumin/Globulin Ratio 0.8 L Radiography Diagnostic Testing: Radiology Impression Echocardiogram 09/06/21 21:00 Interpretation Summary Normal LV size. Moderately severe segmental systolic dysfunction (see wall motion). The estimated ejection fraction is 30 %. The rest of the wall segments are hypokinetic. Stage 1 diastolic dysfunction. Ordering Physician: Virgil Orantes Referring Physician: Camille Guzman Performed By: Evelyne Dang RDCS Rhythm Strip Rhythm Strip: Sinus Tach Rate: 100 Ectopy: None Physical Exam Narrative GENERAL: cooperative HEENT: Atraumatic; EYES; Anicteric, Normal Conjunctiva NECK; supple, normal thyroid, RESPIRATORY: Diminished to auscultation CARDIOVASCULAR: Regular S1 S2, GI: soft, normoactive bowel sounds, : No Renal angle tenderness; EXTREMITIES: No edema, no clubbing, MUSCULOSKELETAL: no muscle wasting NEURO: Awake; no lateralizing signs. SKIN: No Rash PSYCH; Flat affect Assessment & Plan Assessment/Plan (1) NSTEMI, initial episode of care: PLAN: Plan Patient is a 61-year-old gentleman admitted with chest pain. Pain apparently radiated to his left arm and jaw. Admitted to the intensive care unit found to have elevated troponin consistent with acute non-STEMI. Cardiology consulted 1. Acute non-STEMI ? Patient has been admitted to the intensive care unit where he is currently being managed per protocol cardiology consulted plans for patient to undergo left heart catheterization Patient underwent underwent left heart catheterization on 09/08/2021 and had stent placed in his LAD and left circumflex seen this morning no chest pain plan is for patient to be assessed for possible discharge 2. Coronary artery disease ? With history of CABG with subsequent PCI to an LAD lesion 3. Essential hypertension ? Patient apparently did experience brief episodes of hypotension. Home medications were resumed with close monitoring 4. Ischemic cardiomyopathy ? With EF of 25% status post AICD placement 5. Chronic congestive heart failure with reduced ejection fraction ? Currently stable 6. Paroxysmal A. fib ? Rate controlled on systemic anticoagulation with Coumadin which was held on admission switched to heparin pending patient's left heart catheterization 7. Diabetes mellitus type 2 ? Patient presented with hypoglycemia on admission patient is engenders this was continued also placed on Accu-Cheks before meals and at bedtime with sliding scale coverage 8. History of CVA ? On 02/07/2021 9. DVT prophylaxis ? Patient on heparin Charges/Coding Visit Charges Inpatient E&M: 34456 Subs Hosp L2
[2021-09-09] MEDS: Lisinopril 5 MG Tablet PO (07:56)
[2021-09-09] MEDS: Metoprolol(XL)Succ 50 MG Tablet PO (07:56)
[2021-09-09] MEDS: Isosorbide Mononitrate 60 MG Tablet PO (07:57)
[2021-09-09] MEDS: Potassium Chloride Oral Tablet 20 MEQ PO (07:57)
[2021-09-09] MEDS: Furosemide 40 MG Tablet PO (07:57)
[2021-09-09] MEDS: Docusate Sodium 100 MG/10 ML UDC 50 MG PO (07:57)
[2021-09-09] MEDS: Aspirin 81 MG TAB.CHEW PO (07:57)
[2021-09-09] MEDS: Magnesium Chloride 64 MG Delay Rel.Tablet 128 MG PO (07:57)
[2021-09-09] MEDS: Pantoprazole Sodium 40 MG Tablet PO (07:57)
[2021-09-09] MEDS: Clopidogrel Bisulfate 75 MG Tablet PO (07:57)
[2021-09-09] MEDS: Gabapentin 600 MG Tablet PO (08:00)
--- NOTE | 2021-09-09 09:02 | PN.CARD_ITS ---
Subjective Subjective Patient seen and evaluated. Chronically in pain. Does not complain of chest pain though. Objective Data Vital Signs: Vital Signs Temp Pulse Resp BP Pulse Ox O2 Del Method O2 Flow Rate 99 F 89 17 124/65 H 94 Nasal Cannula 2 09/09/21 00:00 09/09/21 07:56 09/09/21 07:00 09/09/21 07:56 09/09/21 07:00 09/09/21 07:00 09/09/21 07:00 Oxygen Flow Rate (L/min) 2 Oxygen Delivery Method Nasal Cannula Weight: 191 lb 5.78 oz Body Mass Index (BMI) 29.7 Intake & Output: Intake and Output for Last 24 Hours 09/07/21 09/08/21 09/09/21 23:59 23:59 23:59 Intake Total 1019.56 / 2079.56 1661.50 / 1661.50 600 / 600 Output Total 1725 / 2175 1525 / 1525 1200 / 1200 Balance -705.44 / -95.44 136.50 / 136.50 -600 / -600 Lab / Micro Data Result Diagrams: 09/09/21 05:40 09/09/21 05:40 Labs: Laboratory Results - last 24 hr 09/08/21 11:56: POC Glucose 117 H 09/08/21 17:41: POC Glucose 203 H 09/08/21 23:29: POC Glucose 179 H 09/09/21 05:37: POC Glucose 157 H 09/09/21 05:40: PT 13.9, INR 1.1 09/09/21 05:40: WBC 9.1, RBC 4.85, Hgb 14.5, Hct 44.2, MCV 91.1, MCH 29.9, MCHC 32.8, RDW Std Deviation 51.6 H, RDW Coeff of Jack 15.6 H, Plt Count 168, MPV 10.2 09/09/21 05:40: Sodium 133 L, Potassium 4.4, Chloride 101, Carbon Dioxide 26.0, Anion Gap 6, BUN 21 H, Creatinine 1.29, Estim Creat Clear Calc 57.65, Est GFR (MDRD) Af Amer 73, Est GFR (MDRD) Non-Af 61, BUN/Creatinine Ratio 16.3, Glucose 160 H, Calcium 9.5, Total Bilirubin 0.60, AST 42 H, ALT 39, Alkaline Phosphatase 77, Total Protein 6.9, Albumin 3.0 L, Globulin 3.9, Albumin/Globulin Ratio 0.8 L Rhythm Strip Rhythm Strip: Sinus Tach Rate: 100 Ectopy: None Cardiology Labs/Tests 09/09/21 05:40: PT 13.9, INR 1.1 09/09/21 05:40: WBC 9.1, RBC 4.85, Hgb 14.5, Hct 44.2, MCV 91.1, MCH 29.9, MCHC 32.8, Plt Count 168, MPV 10.2 09/09/21 05:40: Sodium 133 L, Potassium 4.4, Chloride 101, Carbon Dioxide 26.0, Anion Gap 6, BUN 21 H, Creatinine 1.29, Est GFR (MDRD) Af Amer 73, Est GFR (MDRD) Non-Af 61, BUN/Creatinine Ratio 16.3, Glucose 160 H, Calcium 9.5, Total Bilirubin 0.60 Rhythm: EKG: ECHO: Stress Test: Cardiac Cath: PCI: CT Surgery: Holter monitor: EPS: PPM: CXR: Chest CT Scan: Radiography Diagnostic Testing: Radiology Impression Echocardiogram 09/06/21 21:00 Interpretation Summary Normal LV size. Moderately severe segmental systolic dysfunction (see wall motion). The estimated ejection fraction is 30 %. The rest of the wall segments are hypokinetic. Stage 1 diastolic dysfunction. Ordering Physician: Virgil Orantes Referring Physician: Camille Guzman Performed By: Evelyne Dang RDCS Physical Exam Const alert, oriented x3 and no apparent distress General Appearance: cooperative HEENT hearing grossly normal bilaterally Head and Scalp: atraumatic Eyes EOMs intact bilaterally Neck General: normal visual inspection Chest inspection of chest normal and palpation of chest normal Resp normal respiratory effort Auscultation: clear to auscultation bilaterally Cardio regular rate, regular rhythm, S1 normal heart sound and S2 normal heart sound Jugular Venous Distention: JVD GI normal to inspection, nondistended, normoactive bowel sounds Extremity normal capillary refill and no pedal edema Peripheral Pulses: Yes pulses 2+ throughout and femoral pulses present Skin no rashes or lesions noted Neuro oriented x3 and CN's II-XII intact bilaterally Psych Appearance: grossly normal and appropriate Assessment & Plan Assessment/Plan (1) NSTEMI, initial episode of care: PLAN: Patient presents with non-ST elevation myocardial infarction. His cardiac catheterization demonstrated the following: Normal left main coronary artery. Left anterior descending artery extensively stented with an area of high-grade stenosis approximately 80% noted in the mid LAD within the stent. Left circumflex artery which is stented within the mid segment with an area of stenosis of approximately 80% noted. Right coronary artery totally occluded noted previously. Previous coronary bypass grafts totally occluded. Based on the above angiographic findings the patient successfully underwent PCI of the mid LAD and mid circumflex artery. This morning appears to be doing quite well. (2) H/O coronary artery bypass surgery: PLAN: Patient has coronary artery bypass surgery previously with all his grafts noted to be occluded. (3) History of coronary artery stent placement: PLAN: Patient with multiple stenting noted in the left anterior descending artery. The left circumflex artery is also heavily stented. The angiogram is as noted above. (4) PAF (paroxysmal atrial fibrillation): PLAN: History of paroxysmal atrial fibrillation with no episodes noted recently. (5) History of implantable cardiac defibrillator (ICD): PLAN: Status post implantable defibrillator placement. We will continue to follow in the device clinic. (6) Ischemic cardiomyopathy: PLAN: He does have a history of ischemic cardiomyopathy. His most recent echocardiogram done today demonstrates an ejection fraction of 30% with an akinetic apex. His inferior wall is also noted to be severely hypokinetic to akinetic. We will continue with aggressive guideline directed medical therapy. (7) Essential (primary) hypertension: PLAN: History of hypertension. Plan is to continue the current medical therapy. (8) HLD (hyperlipidemia): QUALIFIERS: Hyperlipidemia type: unspecified Qualified Code(s): E78.5 - Hyperlipidemia, unspecified PLAN: Aggressive risk factor modification with high intensity statin. Thank you for allowing me to participate in the care of your patient. Please don't hesitate to call if any issues arise.
--- NOTE | 2021-09-09 10:00 | EKG12_ITS ---
Test Reason : AM EKG Blood Pressure : / mmHG Vent. Rate : 092 BPM Atrial Rate : 092 BPM P-R Int : 176 ms QRS Dur : 140 ms QT Int : 408 ms P-R-T Axes : 027 119 004 degrees QTc Int : 504 ms Normal sinus rhythm Right bundle branch block Anterolateral infarct , age undetermined Abnormal ECG When compared with ECG of 08-SEP-2021 14:36, MANUAL COMPARISON REQUIRED, DATA IS UNCONFIRMED Confirmed by JULIO SMART, TABATHA ([id number]), non linear editor MARILUZ PAGE ([id number]) on 09/10/2021 12:58:39 PM Referred By: Camille Guzman Confirmed By:TABATHA KIM MD
--- NOTE | 2021-09-09 10:24 | DS.PCM_ITS ---
Providers Date of Admission: 09/06/21 Date of Discharge: 09/09/21 Primary Care Physician: Dr. Oral Calderon MD Reason For Visit: ACUTE CORONARY SYNDROME Diagnosis Discharge Diagnosis (1) NSTEMI, initial episode of care: Status: Acute Code(s): I21.4 - Non-ST elevation (NSTEMI) myocardial infarction Medications at Discharge Home Medications magnesium oxide 400 mg PO DAILY supplement 11/07/18 pantoprazole 40 mg tablet,delayed release 40 mg PO BID stomach 11/15/18 amitriptyline 25 mg tablet 25 mg PO QHS Depression 08/17/19 alendronate 70 mg tablet 70 mg PO QWEEK osteoporosis 03/15/20 gabapentin 600 mg tablet 600 mg PO 4X/DAY nerve pain 03/15/20 empagliflozin 10 mg tablet (Jardiance) 10 mg PO DAILY diabetes 09/13/20 furosemide 40 mg tablet 40 mg PO DAILY water pill 09/13/20 docusate sodium 50 mg capsule 50 mg PO DAILY 10/21/20 potassium chloride 20 mEq tablet,extended release 20 meq PO DAILY 11/11/20 clopidogrel 75 mg tablet 75 mg PO DAILY anti platelet #90 tabs 11/21/20 metoprolol succinate 50 mg tablet,extended release 24 hr 50 mg PO BID BP #180 tabs 03/06/21 tramadol 50 mg tablet 50 mg PO Q8H PRN Pain 03/06/21 isosorbide mononitrate 60 mg tablet,extended release 24 hr 60 mg PO BID #180 tabs 03/19/21 nitroglycerin 0.4 mg sublingual tablet 0.4 mg sublingual Q5M PRN Pain #100 tabs 03/19/21 warfarin 4 mg tablet 4 mg PO DAILY 06/04/21 ondansetron 4 mg disintegrating tablet 4 mg PO Q6H PRN nausea and vomiting #14 tabs 06/05/21 amlodipine 2.5 mg tablet 2.5 mg PO DAILY #30 tabs 06/17/21 ergocalciferol (vitamin D2) 1,250 mcg (50,000 unit) capsule 50,000 unit PO QWEEK #24 caps 06/17/21 lisinopril 5 mg tablet 5 mg PO DAILY 06/30/21 ipratropium 0.5 mg-albuterol 3 mg (2.5 mg base)/3 mL nebulization soln 3 ml inhalation Q4H PRN shortness of breath or wheezing #180 mL 08/13/21 empagliflozin 10 mg tablet (Jardiance) 10 mg PO DAILY 09/06/21 rosuvastatin 40 mg tablet 1 tab PO DAILY 09/06/21 albuterol sulfate 0.63 mg/3 mL solution for nebulization 0.63 mg inhalation Q4H PRN Shortness Of Breath 09/08/21 fluticasone fur. 100 mcg-umeclid 62.5 mcg-vilant 25 mcg inhalat.powder (Trelegy Ellipta) 1 inh inhalation DAILY Check with primary doctor 09/08/21 aspirin 81 mg chewable tablet 81 mg PO DAILY@0800 #90 tabs 09/09/21 Hospital Course Summary of Care Provided Minutes Spent on Discharge: 35 Hospital Course: Patient is a 61-year-old gentleman admitted with chest pain. Pain apparently radiated to his left arm and jaw. Admitted to the intensive care unit found to have elevated troponin consistent with acute non-STEMI. Cardiology consulted 1. Acute non-STEMI ? Patient has been admitted to the intensive care unit where he is currently being managed per protocol cardiology consulted plans for patient to undergo left heart catheterization Patient underwent underwent left heart catheterization on 09/08/2021 and had stent placed in his LAD and left circumflex seen this morning no chest pain plan is for patient to be assessed for possible discharge 2. Coronary artery disease ? With history of CABG with subsequent PCI to an LAD lesion 3. Essential hypertension ? Patient apparently did experience brief episodes of hypotension. Home medications were resumed with close monitoring 4. Ischemic cardiomyopathy ? With EF of 25% status post AICD placement 5. Chronic congestive heart failure with reduced ejection fraction ? Currently stable 6. Paroxysmal A. fib ? Rate controlled on systemic anticoagulation with Coumadin which was held on admission switched to heparin pending patient's left heart catheterization 7. Diabetes mellitus type 2 ? Patient presented with hypoglycemia on admission patient is engenders this was continued also placed on Accu-Cheks before meals and at bedtime with sliding scale coverage 8. History of CVA ? On 02/07/2021 9. DVT prophylaxis ? Patient on heparin Physical Exam Narrative GENERAL: cooperative HEENT: Atraumatic; EYES; Anicteric, Normal Conjunctiva NECK; supple, normal thyroid, RESPIRATORY: Diminished to auscultation CARDIOVASCULAR: Regular S1 S2, GI: soft, normoactive bowel sounds, : No Renal angle tenderness; EXTREMITIES: No edema, no clubbing, MUSCULOSKELETAL: no muscle wasting NEURO: Awake; no lateralizing signs. SKIN: No Rash PSYCH; Flat affect Weight / BMI Weight Weight: 86.8 kg Body Mass Index (BMI) 29.7 ABG / Lab / Microbiology Data Result Diagrams: 09/09/21 05:40 09/09/21 05:40 Laboratory: Laboratory Results - last 24 hr 09/08/21 11:56: POC Glucose 117 H 09/08/21 17:41: POC Glucose 203 H 09/08/21 23:29: POC Glucose 179 H 09/09/21 05:37: POC Glucose 157 H 09/09/21 05:40: PT 13.9, INR 1.1 09/09/21 05:40: WBC 9.1, RBC 4.85, Hgb 14.5, Hct 44.2, MCV 91.1, MCH 29.9, MCHC 32.8, RDW Std Deviation 51.6 H, RDW Coeff of Jack 15.6 H, Plt Count 168, MPV 10.2 09/09/21 05:40: Sodium 133 L, Potassium 4.4, Chloride 101, Carbon Dioxide 26.0, Anion Gap 6, BUN 21 H, Creatinine 1.29, Estim Creat Clear Calc 57.65, Est GFR (MDRD) Af Amer 73, Est GFR (MDRD) Non-Af 61, BUN/Creatinine Ratio 16.3, Glucose 160 H, Calcium 9.5, Total Bilirubin 0.60, AST 42 H, ALT 39, Alkaline Phosphatase 77, Total Protein 6.9, Albumin 3.0 L, Globulin 3.9, Albumin/Globulin Ratio 0.8 L Radiography Diagnostic Testing: Radiology Impression Echocardiogram 09/06/21 21:00 Interpretation Summary Normal LV size. Moderately severe segmental systolic dysfunction (see wall motion). The estimated ejection fraction is 30 %. The rest of the wall segments are hypokinetic. Stage 1 diastolic dysfunction. Ordering Physician: Virgil Orantes Referring Physician: Camille Guzman Performed By: Evelyne Dang RDCS D/C Instructions Discharge Diet: Low fat / Low cholesterol Discharge Activity: Return to Normal Activity Call your doctor if you observe: Fever of 101 or Higher, Shortness of breath, Fainting spells and Chest pain Meaningful Use Info Meaningful Use Diagnoses (Choose all that apply): AMI AMI/Post PCI/Angioplasty Aspirin given w/in 24hrs of arrival?: Yes ASA at discharge?: Yes Antiplatelet Therapy at Discharge:: Yes Statins at discharge?: Yes Mynor/ARB at discharge?: Yes Beta Shante at discharge?: Yes Done w/ Acute WI measure.: Yes Documented LVEF (%): 30 Discharge Plan Admission Admit Date/Time: 09/06/21 20:04 Attending Provider: Alfie Penn Primary Care Provider: Oral Calderon Consulting Providers: Virgil Orantes ; Martine Rain Discharge Orders/Prescriptions Prescriptions: New aspirin 81 mg Tablet,Chewable 81 mg PO DAILY@0800 Qty: 90 0RF Continued pantoprazole 40 mg tablet,delayed release (DR/EC) 40 mg PO BID gabapentin 600 mg tablet 600 mg PO 4X/DAY amitriptyline 25 mg tablet 25 mg PO QHS alendronate 70 mg tablet 70 mg PO QWEEK Rx Instructions: pt takes on Mondays Jardiance 10 mg tablet 10 mg PO DAILY potassium chloride 20 mEq tablet extended release 20 meq PO DAILY tramadol 50 mg tablet 50 mg PO Q8H PRN (Reason: Pain) Label Comments: TAKE ONE TABLET BY MOUTH EVERY NIGHT WITH TYLENOL 650MG metoprolol succinate 50 mg tablet extended release 24 hr 50 mg PO BID Qty: 180 3RF warfarin 4 mg tablet 4 mg PO DAILY Protocol: Dose Management Condition: Wednesday Dose/Route: 4 mg Instruction: 1 x 4 mg tablet Condition: Wednesday Dose/Route: 4 mg Instruction: 1 x 4 mg tablet Condition: Wednesday Dose/Route: 2 mg Instruction: 0.5 x 4 mg tablets Condition: Wednesday Dose/Route: 4 mg Instruction: 1 x 4 mg tablet Condition: Dose/Route: 4 mg Instruction: 1 x 4 mg tablet Condition: Wednesday Dose/Route: 4 mg Instruction: 1 x 4 mg tablet Condition: Wednesday Dose/Route: 4 mg Instruction: 1 x 4 mg tablet Protocol Text: Adjustment Start Date: Wednesday08/19/21 INR Value: 3.5 INR Date: 08/19/21 Recheck Date: 08/26/21 amlodipine 2.5 mg tablet 2.5 mg PO DAILY Qty: 30 11RF ergocalciferol (vitamin D2) 1,250 mcg (50,000 unit) capsule 50,000 unit PO QWEEK Qty: 24 0RF magnesium oxide 400 MG tablet 400 mg PO DAILY furosemide 40 mg tablet 40 mg PO DAILY docusate sodium 50 mg Capsule 50 mg PO DAILY ondansetron 4 mg tablet,disintegrating 4 mg PO Q6H PRN (Reason: nausea and vomiting) Qty: 14 0RF rosuvastatin 40 mg tablet 1 tab PO DAILY Label Comments: TAKE 1 TABLET BY MOUTHCONCE DAILY Jardiance 10 mg tablet 10 mg PO DAILY Label Comments: TAKE 1 TABLET BY MOUTHCONCE DAILY albuterol sulfate 0.63 mg/3 mL Solution For Nebulization 0.63 mg INHALATION Q4H PRN (Reason: Shortness Of Breath) Trelegy Ellipta 100-62.5-25 mcg Blister With Device 1 inh INHALATION DAILY clopidogrel 75 mg tablet 75 mg PO DAILY Qty: 90 3RF nitroglycerin 0.4 mg tablet, sublingual 0.4 mg sublingual Q5M PRN (Reason: Pain) Qty: 100 3RF Rx Instructions: do not exceed 3 doses per episode isosorbide mononitrate 60 mg tablet extended release 24 hr 60 mg PO BID Qty: 180 3RF lisinopril 5 mg tablet 5 mg PO DAILY ipratropium-albuterol 0.5 mg-3 mg(2.5 mg base)/3 mL solution for nebulization 3 ml inhalation Q4H PRN (Reason: shortness of breath or wheezing) Qty: 180 3RF Referrals / Follow Up: Kevin Albert MD [Med Staff - Active Staff] - Within 2 Weeks Oral Calderon MD [Primary Care Provider] - Within 1 Week Disposition Disposition (needs filled in before D/C Order can be placed): Home, Self Care Charges/Coding Visit Charges Inpatient E&M: 78394 Disch Hosp
--- NOTE | 2021-09-09 12:14 | CASEMGMT ---
RN CARLYN updated that patient will need home oxygen at discharge. FAVIOLA ALCOCER in to discuss DME companies with patient. After reviewing list of in-network providers, patient would like [employer]. Script received from hospitalist and referral sent to [facility]. Patient provided [employer] portable tank from supply and nursing updated. Patient had no further questions or concerns at this time.
[2021-09-09 12:25] LABS: Bedside Glucose 146 mg/dL (74-106)
== END 2021-09-09 13:00 | disposition home or self-care (01) | DRG 246 ==
LOC: ED 20:19 → ICU 20:39
PROVIDERS: Internal Medicine; Admitting Provider Hospitalist; Emergency Provider Emergency Medicine; PCP Family Medicine; Referring Provider Internal Medicine Interventional Cardiology; Visit Provider Internal Medicine
DX: T82.855A Stenosis of coronary artery stent, initial encounter (principal); I21.4 Non-ST elevation (NSTEMI) myocardial infarction; N17.9 Acute kidney failure, unspecified; I13.0 Hypertensive heart and chronic kidney disease with heart failure and stage 1 through stage 4 chronic kidney disease, or unspecified chronic kidney disease; I50.22 Chronic systolic (congestive) heart failure; I25.810 Atherosclerosis of coronary artery bypass graft(s) without angina pectoris; E11.22 Type 2 diabetes mellitus with diabetic chronic kidney disease; E11.65 Type 2 diabetes mellitus with hyperglycemia; N18.31 Chronic kidney disease, stage 3a; E11.40 Type 2 diabetes mellitus with diabetic neuropathy, unspecified; J44.9 Chronic obstructive pulmonary disease, unspecified; I48.0 Paroxysmal atrial fibrillation; E11.51 Type 2 diabetes mellitus with diabetic peripheral angiopathy without gangrene; I25.5 Ischemic cardiomyopathy; E78.5 Hyperlipidemia, unspecified; G47.33 Obstructive sleep apnea (adult) (pediatric); I25.10 Atherosclerotic heart disease of native coronary artery without angina pectoris; R09.02 Hypoxemia; F32.A Depression, unspecified; F41.9 Anxiety disorder, unspecified; F17.210 Nicotine dependence, cigarettes, uncomplicated; Z66 Do not resuscitate; Z79.83 Long term (current) use of bisphosphonates; Z79.84 Long term (current) use of oral hypoglycemic drugs; Z79.01 Long term (current) use of anticoagulants; Z79.02 Long term (current) use of antithrombotics/antiplatelets; Z79.82 Long term (current) use of aspirin; Z79.899 Other long term (current) drug therapy; I25.2 Old myocardial infarction; Z86.73 Personal history of transient ischemic attack (TIA), and cerebral infarction without residual deficits; Z95.810 Presence of automatic (implantable) cardiac defibrillator; Z95.1 Presence of aortocoronary bypass graft; Z95.5 Presence of coronary angioplasty implant and graft; I95.9 Hypotension, unspecified
CPT/HCPCS: 71045; 80048; 80053; 80061; 82962; 84484; 85025; 85027; 85610; 85730; 92920; 92928; 93005; 93306; 93454; 94640; 97802; 99152; 99153; 99285; 99406; C1725; C1874; J7030; J7040; Q9957; Q9967; A4216; C1769; C1887; C1894; C8929; C9600; J1327

== ENCOUNTER 2021-09-12 15:13 | Emergency (ER) | payer MEDICARE, SELFPAY ==
[2018-12-13 11:07] VITALS: BMI 26.3
[2021-09-12] VITALS (8 sets, daily range): BP systolic 88–111; BP diastolic 42–58; PULSE 89–98; RESP 16–17; TEMP 36.4; O2SAT 94–97
--- NOTE | 2021-09-12 15:39 | EKG12_ITS ---
Test Reason : GROIN Blood Pressure : / mmHG Vent. Rate : 088 BPM Atrial Rate : 088 BPM P-R Int : 166 ms QRS Dur : 142 ms QT Int : 424 ms P-R-T Axes : 017 112 014 degrees QTc Int : 513 ms Normal sinus rhythm Right bundle branch block Anterolateral infarct , age undetermined Abnormal ECG Confirmed by DAVEY SMART, BALA ([id number]), supervising editor news reel MARILUZ PAGE ([id number]) on 09/15/2021 11:43:21 AM Referred By: TINO Confirmed By:JUAN MARISCAL MD
--- NOTE | 2021-09-12 15:39 | CT_ITS ---
INDICATION: abd and right groin pain EXAMINATION: CT Abdomen And Pelvis W/ Contrast Injection TECHNIQUE: Helically acquired images were obtained of the abdomen and pelvis after IV contrast. A radiation dose optimization technique was used for this scan. IV Contrast dosage and agent: IV 100mL [id number]-300 Oral contrast: None. COMPARISON: None. FINDINGS: Visualized lung bases: 6 mm pulmonary nodule in the left lung base. Liver: Unremarkable Gallbladder: Few small intraluminal stones seen. Spleen: Unremarkable Pancreas: Unremarkable Adrenal Glands: Unremarkable Kidneys: Scattered too small to characterize subcentimeter hypodensities bilaterally. Mild bilateral nonspecific perinephric fat stranding. Vasculature: Stable 3.6 cm infrarenal abdominal aortic aneurysm. GI Tract: Scattered diverticula throughout the colon without evidence of inflammation. Lymphadenopathy: None Peritoneum: No ascites. Bladder: Mild circumferential bladder wall thickening with surrounding fat stranding. Reproductive organs: Fat stranding surrounding the seminal vesicles Bones/Soft tissues: No suspicious osseous or soft tissue lesions CT/Abdomen/Pelvis W IV Cont ONLY IMPRESSION: Cystitis with seminal vesiculitis. Correlate with urinalysis. Mild bilateral perinephric fat stranding is nonspecific. Cholelithiasis. Stable 3.6 cm infrarenal abdominal aortic aneurysm. Electronically Signed: Shawn Maria MD at 17:47 EDT ,
--- NOTE | 2021-09-12 15:44 | EDS_ITS ---
HPI History of Present Illness Chief Complaint: Male Pain/Injury Informant: patient and spouse/S.O. Pain Onset: Today Context: Gradual Onset Timing: Continuous Current Severity: Mild Maximum Severity: Mild Narrative Narrative: 61-year-old male history of COPD, PR, status post CABG from 2011 and a defibrillator for V. fib. Also has a history of A. fib and TIA. His last echo showed an ejection fraction of 30%. Patient presents today stating he has had right groin pain and right scrotal pain. He denies any nausea vomiting diarrhea. No dysuria. He was hospitalized in this hospital within the last week for an acute PR. Had a cardiac catheterization and stent. Catheterization went through his right wrist. He has had some chronic abdominal pain complaining of right groin pain. Denies any fever or dysuria. Currently his pressure is 88/42 is a normally runs like 115/85. Prior similar symptoms: No Recent Illness/Hospitalization: Yes PFSH PFSH Medical History Abdominal aortic aneurysm (AAA) Abnormal PFT Anxiety Atherosclerosis of coronary artery bypass graft of [place] heart with angina pectoris Blood in stool Chronic HFrEF (heart failure with reduced ejection fraction) COPD (chronic obstructive pulmonary disease) Depression Depression with anxiety Descending aortic aneurysm Diverticulosis Esophageal stricture Essential (primary) hypertension GERD (gastroesophageal reflux disease) Hemangioma History of CVA (cerebrovascular accident) (02/07/21) History of non-ST elevation myocardial infarction (NSTEMI) (02/07/21) HLD (hyperlipidemia) Hypersomnia Hypomagnesemia syndrome ICD (implantable cardioverter-defibrillator) discharge (09/08/21) Ischemic cardiomyopathy Left lower lobe pulmonary nodule Neuropathic pain Nicotine dependence LETTY (obstructive sleep apnea) Osteoporosis PAF (paroxysmal atrial fibrillation) Peripheral vascular occlusive disease Rheumatoid arthritis Right bundle branch block (RBBB) Right ventricular systolic dysfunction Smoking greater than 40 pack years Stroke Testicular pain Thoracic aortic aneurysm (TAA) TIA (transient ischemic attack) Tinnitus Ventricular fibrillation (09/08/21) Home Medications magnesium oxide 400 mg PO DAILY supplement 11/07/18 [History Last Taken 04/20/20] pantoprazole 40 mg tablet,delayed release 40 mg PO BID stomach 11/15/18 [History Last Taken 05/20/20] amitriptyline 25 mg tablet 25 mg PO QHS Depression 08/17/19 [History Last Taken 04/20/20] alendronate 70 mg tablet 70 mg PO QWEEK osteoporosis 03/15/20 [History Last Taken 04/15/20] gabapentin 600 mg tablet 600 mg PO 4X/DAY nerve pain 03/15/20 [History Last Taken 05/20/20] furosemide 40 mg tablet 40 mg PO DAILY water pill 09/13/20 [History Last Taken Unknown] docusate sodium 50 mg capsule 50 mg PO DAILY 10/21/20 [History Last Taken Unknown] potassium chloride 20 mEq tablet,extended release 20 meq PO DAILY 11/11/20 [History Last Taken Unknown] clopidogrel 75 mg tablet 75 mg PO DAILY anti platelet #90 tabs 11/21/20 [Rx Last Taken Unknown] metoprolol succinate 50 mg tablet,extended release 24 hr 50 mg PO BID BP #180 tabs 03/06/21 [Rx Last Taken Unknown] isosorbide mononitrate 60 mg tablet,extended release 24 hr 60 mg PO BID #180 tabs 03/19/21 [Rx Last Taken Unknown] nitroglycerin 0.4 mg sublingual tablet 0.4 mg sublingual Q5M PRN Pain #100 tabs 03/19/21 [Rx Last Taken Unknown] warfarin 4 mg tablet 4 mg PO DAILY 06/04/21 [History Last Taken Unknown] amlodipine 2.5 mg tablet 2.5 mg PO DAILY #30 tabs 06/17/21 [Rx Last Taken Unknown] ergocalciferol (vitamin D2) 1,250 mcg (50,000 unit) capsule 50,000 unit PO QWEEK #24 caps 06/17/21 [Rx Last Taken Unknown] lisinopril 5 mg tablet 5 mg PO DAILY 06/30/21 [History Last Taken Unknown] ipratropium 0.5 mg-albuterol 3 mg (2.5 mg base)/3 mL nebulization soln 3 ml inhalation Q4H PRN shortness of breath or wheezing #180 mL 08/13/21 [Rx Last Taken Unknown] empagliflozin 10 mg tablet (Jardiance) 10 mg PO DAILY 09/06/21 [History Last Taken Unknown] rosuvastatin 40 mg tablet 1 tab PO DAILY 09/06/21 [History Last Taken Unknown] albuterol sulfate 0.63 mg/3 mL solution for nebulization 0.63 mg inhalation Q4H PRN Shortness Of Breath 09/08/21 [History Last Taken Unknown] fluticasone fur. 100 mcg-umeclid 62.5 mcg-vilant 25 mcg inhalat.powder (Trelegy Ellipta) 1 inh inhalation DAILY Check with primary doctor 09/08/21 [History Last Taken Unknown] aspirin 81 mg chewable tablet 81 mg PO DAILY@0800 #90 tabs 09/09/21 [Rx Last Taken Unknown] ciprofloxacin HCl 500 mg tablet (Cipro) 500 mg PO BID 10 days #20 tabs 09/12/21 [Rx Last Taken Unknown] Allergy/AdvReac Type Severity Reaction Status Date / Time oxycodone [From Percocet] Allergy Severe dry heaves Verified 08/28/21 07:55 latex Allergy Unknown unknown Verified 08/28/21 07:55 acetaminophen Allergy Anaphylaxis Verified 08/28/21 07:55 [From Darvocet-N] diphenhydramine Allergy Rash Verified 08/28/21 07:55 [From Benadryl] NSAIDS (Non-Steroidal Allergy Anaphylaxis Verified 08/28/21 07:55 Anti-Inflamma Penicillins Allergy Anaphylaxis Verified 08/28/21 07:55 propoxyphene Allergy Anaphylaxis Verified 08/28/21 07:55 [From Darvocet-N] hydrocodone [From Vicodin] AdvReac Mild Nausea/Vom/ Verified 08/28/21 07:55 Diarrhea peppercorn AdvReac NEEDS Uncoded 08/28/21 07:55 FOLLOW-UP Family History Sister CVA (cerebral vascular accident) Heart disease Hypertension High cholesterol Diabetes Cancer lung cancer Father Arthritis Cancer myeloma Mother Arthritis Cancer Brain cancer Surgical History H/O coronary artery bypass surgery (01/28/12) History of angioplasty of peripheral vessel (01/2015) History of coronary angioplasty (08/09/20) History of coronary artery stent placement (09/08/21) History of implantable cardiac defibrillator (ICD) (09/15/17) History of left heart catheterization (05/20/20) History of left inguinal hernia repair S/P femoral-tibial bypass (12/28/18) Sebaceous cyst Social History household members: significant other Smoking Status: Current every day smoker tobacco type: cigarettes Tobacco: How many years used: 40 quit status: considering quitting alcohol intake: never substance use type: does not use caffeine: Yes (cola) Type: carbonated beverages Number of servings: 4 ROS ROS ED ROS Narrative Abdominal pain and scrotal pain. Review of Systems ROS Unobtainable: Denies due to encephalopathy Constitutional Constitutional ED: Denies chills or fever(s) Eyes Eyes: Denies blurry vision ENT ENT ED: Denies ear pain Cardiovascular Cardiovascular: Denies chest pain Respiratory/Chest Respiratory/Chest: Denies cough or dyspnea Gastrointestinal Gastrointestinal: Reports abdominal pain; Denies constipation, diarrhea, melena, nausea or vomiting Genitourinary Genitourinary ED: Denies dysuria or hematuria Musculoskeletal Musculoskeletal: Denies arthralgias Integumentary Denies abscess Neurologic Neurologic: Denies headache(s) Psychiatric Psychiatric: Denies anxiety Endocrine Endocrinology: Denies polydipsia Hematologic/Lymphatic Hematologic/Lymphatic: Denies easy bleeding Allergic/Immunologic Allergic/Immunologic ED: Denies mouth swelling EXAM Physical Exam Narrative Exam Narrative: 11-year-old male no acute distress vital signs stable except his blood pressure 88/42. He sitting upright in bed. He is tolerating the low blood pressure well. To be retaken. H EENT exam unremarkable. No trauma. Moist extremities. Neck nontender no JVD. Lungs clear to auscultation. Heart regular rhythm no murmur. Chest wall. Prior sternotomy and sternal wound infection. He is chronic chest wall discomfort. Abdomen soft diffusely tender no peritoneal signs. No obstruction or mass. No pulsatile mass. External exam he has right groin tenderness and right scrotal tenderness. I do not feel an obvious hernia but difficult to ascertain due to the amount of tenderness he is having in his right inguinal area. Also has swelling and tenderness over his right hemiscrotum. There is no redness. No signs of torsion. Moving all 4 extremities. Calves are nontender without edema. Neurologically is awake and alert. Const Vital Signs: 09/12/21 15:13 09/12/21 17:20 09/12/21 17:13 Temperature 97.6 F L Temperature Source Temporal Pulse Rate 90 90 Respiratory Rate 16 17 Blood Pressure 88/42 L 102/57 L 111/58 L Blood Pressure Mean 57 72 75 Pulse Ox 94 97 Oxygen Delivery Method Room Air Nasal Cannula Oxygen Flow Rate (L/min) 2 09/12/21 17:00 09/12/21 16:51 09/12/21 17:25 Temperature Temperature Source Pulse Rate Respiratory Rate Blood Pressure 108/52 L 89/54 L 99/57 L Blood Pressure Mean 70 65 71 Pulse Ox Oxygen Delivery Method Oxygen Flow Rate (L/min) 09/12/21 18:53 Temperature Temperature Source Pulse Rate 89 Respiratory Rate 16 Blood Pressure 90/45 L Blood Pressure Mean 60 Pulse Ox 94 Oxygen Delivery Method Nasal Cannula Oxygen Flow Rate (L/min) 2 Positive well nourished and well developed; Negative for cachectic, contractures or unkempt General Appearance ED: well developed; Negative for unkempt, cachectic or contractures Nutritional Appearance: Negative for cachectic HEENT Reports moist mucous membranes; Denies dry mucous membranes normocephalic and atraumatic; Negative for trauma or tenderness Mouth ED: No dry mucous membranes Mouth: No dry mucous membranes Eyes PERRL and EOMs intact bilaterally General Eye ED: Negative for pale conjunctiva or scleral icterus Neck no lymphadenopathy, supple and no JVD General: Negative for tenderness Resp normal respiratory effort and clear to auscultation bilaterally Effort and Inspection: Negative for retractions Auscultation: Negative for rales, rhonchi or wheezes Cardio regular rate, regular rhythm, S1 normal heart sound, S2 normal heart sound and no murmurs GI non-distended and no masses; Negative for non-tender Inspection: Negative for abdominal distention Auscultation: normoactive bowel sounds Palpation: soft and tender; Negative for guarding, hepatomegaly or splenomegaly no CVA tenderness Back/Spine no CVA tenderness General Back: Negative for CVA tenderness Cervical Spine: Negative for cervical spine tenderness Thoracic Spine / Upper Back: Negative for thoracic spinal tenderness Extremity normal to inspection General Extremety ED: Negative for edema, pulses abnormal or tenderness General Extremity: Negative for edema or pulses abnormal Neuro oriented x3, moves all extremities, no focal motor deficits and no sensory deficits noted Sensorium / Orientation: alert, oriented to person, oriented to place and oriented to time; Negative for orientation impaired, confused, lethargic or stuporous Motor Exam: strength 5/5 throughout Psych mental status grossly normal Appearance: Negative for unkempt Mood & Affect: Negative for depressed Thought Process: normal thought process Thought Content: normal thought content Skin General Skin Exam: Negative for jaundice Rashes: no rashes Trauma: Negative for abrasion or laceration MDM MDM MDM Narrative Medical decision making narrative: 61-year-old male significant cardiac history with an PR within the last week. Complaining of right groin, right scrotal and abdominal pain. He is hypotensive. Will be treated with a half a liter normal saline screening labs and a CAT scan will be obtained. Lab work-up is consistent with urinary tract infection (cystitis). Patient placed on Cipro 500 twice daily for 10 days. Urine culture sent. Follow-up with his primary care physician. Patient is doing well on repeat exam at 7:20 PM. Lab Data Attestation: I reviewed the patient's lab results. Lab results narrative: CBC is normal white count 8. H&H 14 and 43. Platelets 184. Electrolytes sodium 135 gap is 6 BUN and creatinine are 36 and 1.63. Glucose 156. Lactic acid is normal at 0.9. Liver enzymes unremarkable. Lipase normal at 207. PT/INR normal. INR 1.6. Urinalysis shows positive nitrates. Blood on the macroscopic sample. Labs: Laboratory Results - last 24 hr 09/12/21 09/12/21 09/12/21 16:20 16:20 16:20 WBC 8.9 RBC 4.75 Hgb 14.7 Hct 43.6 MCV 91.8 MCH 30.9 MCHC 33.7 RDW Std Deviation 53.6 H RDW Coeff of Jack 15.9 H Plt Count 184 MPV 9.8 Immature Gran % (Auto) 0.300 Neut % (Auto) 73.4 H Lymph % (Auto) 14.0 L [place] % (Auto) 4.5 Eos % (Auto) 7.0 H Baso % (Auto) 0.8 Absolute Neuts (auto) 6.5 Absolute Lymphs (auto) 1.24 Nucleated RBC % 0 PT INR Sodium 135 L Potassium 3.9 Chloride 103 Carbon Dioxide 26.0 Anion Gap 6 BUN 36 H Creatinine 1.63 H Estim Creat Clear Calc 45.62 Est GFR (MDRD) Af Amer 56 L Est GFR (MDRD) Non-Af 46 L BUN/Creatinine Ratio 22.1 H Glucose 156 H Lactic Acid 0.9 Calcium 9.2 Total Bilirubin 0.40 AST 31 ALT 34 Alkaline Phosphatase 84 Total Protein 7.5 Albumin 3.0 L Globulin 4.5 H Albumin/Globulin Ratio 0.7 L Lipase 207 Urine Color Urine Clarity Urine pH Ur Specific [place] Urine Protein Urine Glucose (UA) Urine Ketones Urine Occult Blood Urine Nitrite Urine Bilirubin Urine Urobilinogen Ur Leukocyte Esterase Urine RBC Urine WBC Ur Squamous Epith Cells Urine Bacteria Urine Mucus 09/12/21 09/12/21 16:20 17:30 WBC RBC Hgb Hct MCV MCH MCHC RDW Std Deviation RDW Coeff of Jack Plt Count MPV Immature Gran % (Auto) Neut % (Auto) Lymph % (Auto) [place] % (Auto) Eos % (Auto) Baso % (Auto) Absolute Neuts (auto) Absolute Lymphs (auto) Nucleated RBC % PT 19.1 H INR 1.6 Sodium Potassium Chloride Carbon Dioxide Anion Gap BUN Creatinine Estim Creat Clear Calc Est GFR (MDRD) Af Amer Est GFR (MDRD) Non-Af BUN/Creatinine Ratio Glucose Lactic Acid Calcium Total Bilirubin AST ALT Alkaline Phosphatase Total Protein Albumin Globulin Albumin/Globulin Ratio Lipase Urine Color Straw Urine Clarity Sl. Cloudy Urine pH 6.0 Ur Specific [place] 1.010 Urine Protein 30 H Urine Glucose (UA) 250 H Urine Ketones Negative Urine Occult Blood 250 H Urine Nitrite Positive H Urine Bilirubin Negative Urine Urobilinogen Normal Ur Leukocyte Esterase 500 H Urine RBC > 100 SEEN Urine WBC >100 SEEN Ur Squamous Epith Cells 0-5 SEEN Urine Bacteria 2+ Urine Mucus 0 SEEN Radiography Diagnostic Testing: Clinical Impression(s) from Imaging Studies Abdomen/Pelvis CT 09/12/21 15:39 IMPRESSION: Cystitis with seminal vesiculitis. Correlate with urinalysis. Mild bilateral perinephric fat stranding is nonspecific. Cholelithiasis. Stable 3.6 cm infrarenal abdominal aortic aneurysm. Electronically Signed: Shawn Maria MD at 17:47 EDT , Rhythm Strip Rhythm Strip: Sinus Rhythm Rate: 88 Ectopy: None EKG Initial EKG: Attestation: I personally reviewed and interpreted this EKG as follows: Interpretation: Sinus Rhythm Comments: Normal sinus rhythm rate 88. Right bundle branch block. Old PR. No acute abnormality. Discharge Plan Triage Chief Complaint: Male Pain/Injury ED Provider: Michael Serrato Dx/Rx/DC Orders Clinical Impression: Urinary tract infection, Acute hypotension, History of atrial fibrillation, History of cardiomyopathy Instructions: Urinary Tract Infections in Men Prescriptions: New ciprofloxacin HCl [Cipro] 500 mg tablet 500 mg PO BID 10 Days Qty: 20 0RF No Action pantoprazole 40 mg tablet,delayed release (DR/EC) 40 mg PO BID gabapentin 600 mg tablet 600 mg PO 4X/DAY amitriptyline 25 mg tablet 25 mg PO QHS alendronate 70 mg tablet 70 mg PO QWEEK Rx Instructions: pt takes on Mondays potassium chloride 20 mEq tablet extended release 20 meq PO DAILY metoprolol succinate 50 mg tablet extended release 24 hr 50 mg PO BID Qty: 180 3RF warfarin 4 mg tablet 4 mg PO DAILY Protocol: Dose Management Condition: Wednesday Dose/Route: 4 mg Instruction: 1 x 4 mg tablet Condition: Wednesday Dose/Route: 4 mg Instruction: 1 x 4 mg tablet Condition: Wednesday Dose/Route: 2 mg Instruction: 0.5 x 4 mg tablets Condition: Wednesday Dose/Route: 4 mg Instruction: 1 x 4 mg tablet Condition: Dose/Route: 4 mg Instruction: 1 x 4 mg tablet Condition: Wednesday Dose/Route: 4 mg Instruction: 1 x 4 mg tablet Condition: Wednesday Dose/Route: 4 mg Instruction: 1 x 4 mg tablet Protocol Text: Adjustment Start Date: Wednesday08/19/21 INR Value: 3.5 INR Date: 08/19/21 Recheck Date: 08/26/21 amlodipine 2.5 mg tablet 2.5 mg PO DAILY Qty: 30 11RF ergocalciferol (vitamin D2) 1,250 mcg (50,000 unit) capsule 50,000 unit PO QWEEK Qty: 24 0RF magnesium oxide 400 MG tablet 400 mg PO DAILY furosemide 40 mg tablet 40 mg PO DAILY docusate sodium 50 mg Capsule 50 mg PO DAILY rosuvastatin 40 mg tablet 1 tab PO DAILY Label Comments: TAKE 1 TABLET BY MOUTHCONCE DAILY Jardiance 10 mg tablet 10 mg PO DAILY Label Comments: TAKE 1 TABLET BY MOUTHCONCE DAILY albuterol sulfate 0.63 mg/3 mL Solution For Nebulization 0.63 mg INHALATION Q4H PRN (Reason: Shortness Of Breath) Trelegy Ellipta 100-62.5-25 mcg Blister With Device 1 inh INHALATION DAILY aspirin 81 mg Tablet,Chewable 81 mg PO DAILY@0800 Qty: 90 0RF clopidogrel 75 mg tablet 75 mg PO DAILY Qty: 90 3RF nitroglycerin 0.4 mg tablet, sublingual 0.4 mg sublingual Q5M PRN (Reason: Pain) Qty: 100 3RF Rx Instructions: do not exceed 3 doses per episode isosorbide mononitrate 60 mg tablet extended release 24 hr 60 mg PO BID Qty: 180 3RF lisinopril 5 mg tablet 5 mg PO DAILY ipratropium-albuterol 0.5 mg-3 mg(2.5 mg base)/3 mL solution for nebulization 3 ml inhalation Q4H PRN (Reason: shortness of breath or wheezing) Qty: 180 3RF Primary Care Provider: Oral Calderon Referrals: Oarl Calderon MD [Primary Care Provider] - 1 Week if not improving Activity Restrictions/Additional Instructions: Plenty of fluids and rest. Cipro the antibiotic twice a day for the next 10 days. You have a urinary tract infection and urine culture will be sent. Follow-up with your primary care physician to ensure this is improving. Due to the antibiotic you need to have your blood thinner Coumadin level rechecked in a couple of weeks. Disposition Disposition: Home, Self Care
[2021-09-12 16:28] LABS: Absolute Lymphocyte Count 1.24 X10^3/uL (0.83-4.51); Absolute Neutrophil Count 6.5 X10^3/uL (2.0-7.7); Basophil# 0.07 X10^3/uL; Basophil% 0.8 % (0-1); Eosinophil# 0.62 X10^3/uL; Hematocrit 43.6 % (40-54); Hemoglobin 14.7 g/dL (13.0-16.5); Lymphocyte # 1.24 X10^3/ul (0.83-4.51); Mean Corp Hgb Conc 33.7 g/dL (32-36); Mean Corpuscular Hgb 30.9 pg (27.0-32.0); Mean Corpuscular Volume 91.8 fL (80-94); Mean Platelet Vol. 9.8 fl (6.2-12.0); Monocyte% 4.5 % (0-10); NRBC Flagged by Analyzer 0 % (0-5); Neutrophil # 6.49 X10^3/uL (2.7-7.7); Neutrophil % 73.4 % (47-70); Platelet Count 184 K/mm3 (150-450); RBC Distribution Width CV 15.9 % (11.6-14.6); RBC Distribution Width SD 53.6 fl (35.1-43.9); Red Blood Count 4.75 M/mm3 (4.6-6.2); White Blood Count 8.9 K/mm3 (4.4-11.0)
[2021-09-12 16:42] LABS: International Normalized Ratio 1.6; Prothrombin Time (Protime)PT. 19.1 SECONDS (11.7-14.9)
[2021-09-12 16:49] LABS: ALB/GLOB Ratio 0.7 RATIO (0.9-2.4); AST(SGOT) 31 U/L (15-37); Alanine Aminotransfer ALT/SGPT 34 U/L (16-61); Alkaline Phosphatase 84 U/L (45-117); Anion Gap 6 (5-15); BUN 36 mg/dL (7-18); BUN/Creat Ratio 22.1 RATIO (10-20); Calcium,Total 9.2 mg/dL (8.5-10.1); Chloride 103 mmol/L (98-107); Creatinine, Serum 1.63 mg/dL (0.70-1.30); EST Glomerular Filtration Rate 46 mL/min (>60); Est Glom Filt Rate - Afr Amer 56 mL/min (>60); Estimated Creatinine Clearance 45.62 ml/min; Globulin 4.5 g/dL (2.2-4.2); Glucose 156 mg/dL (74-106); Lipase 207 U/L (73-393); Potassium 3.9 mmol/L (3.5-5.1); Protein, Total 7.5 g/dL (6.4-8.2); Sodium Level 135 mmol/L (136-145)
[2021-09-12 16:54] LABS: Lactic Acid 0.9 mmol/L (0.4-1.9)
[2021-09-12] MEDS: fentaNYL 100 MCG/2 ML Ampul 25 MCG IV (17:32)
[2021-09-12 17:48] LABS: Mucous, Urine 0 SEEN /hpf (<or=2+)
[2021-09-12 18:03] LABS: Color, Urine Straw (Yellow); Glucose, Dipstick 250 mg/dl (Normal); Ketone-Dipstick Negative (Negative); Leukocyte Esterase-Dipstick 500 /ul (Negative); Nitrite-Dipstick Positive (Negative); Occult Blood-Urine 250 /ul (Negative); Protein-Dipstick 30 mg/dl (Negative); Urine Bilirubin Dipstick Negative (Negative); Urine Clarity Sl. Cloudy (Clear); Urine Urobilinogen Normal (Normal)
[2021-09-12 18:21] LABS: Bacteria 2+ /hpf (None Seen); Red Blood Cells-Urine > 100 SEEN /hpf (0-5); Squamous Epithelial Cells - UA 0-5 SEEN /hpf (0-5); White Blood Cells >100 SEEN /hpf (0-5)
[2021-09-12] MEDS: Ciprofloxacin 500 MG Tablet PO (19:41)
== END 2021-09-12 19:46 | disposition home or self-care (01) ==
PROVIDERS: Emergency Provider Emergency Medicine; PCP Family Medicine; Visit Provider Emergency Medicine
DX: N39.0 Urinary tract infection, site not specified (principal); J44.9 Chronic obstructive pulmonary disease, unspecified; I11.0 Hypertensive heart disease with heart failure; I50.22 Chronic systolic (congestive) heart failure; I48.0 Paroxysmal atrial fibrillation; I21.9 Acute myocardial infarction, unspecified; I25.118 Atherosclerotic heart disease of native coronary artery with other forms of angina pectoris; I95.9 Hypotension, unspecified; I25.5 Ischemic cardiomyopathy; G89.29 Other chronic pain; E78.5 Hyperlipidemia, unspecified; F17.210 Nicotine dependence, cigarettes, uncomplicated; G47.33 Obstructive sleep apnea (adult) (pediatric); M81.0 Age-related osteoporosis without current pathological fracture; Z79.82 Long term (current) use of aspirin; Z79.01 Long term (current) use of anticoagulants; Z79.02 Long term (current) use of antithrombotics/antiplatelets; Z79.899 Other long term (current) drug therapy; Z95.810 Presence of automatic (implantable) cardiac defibrillator; Z95.1 Presence of aortocoronary bypass graft; Z86.73 Personal history of transient ischemic attack (TIA), and cerebral infarction without residual deficits
CPT/HCPCS: 99285; 74177; 80053; 81001; 83605; 83690; 85025; 85610; 87086; 87088; 87186; 93005; J7040; Q9967; A4216

== ENCOUNTER 2021-09-14 20:29 | Inpatient (IN) | payer MEDICARE, SELFPAY ==
[2018-12-13 11:07] VITALS: BMI 26.3
[2021-09-14 20:30] VITALS: BP 95/62; PULSE 91; RESP 18; TEMP 36.8; O2SAT 94; BMI 29.7
--- NOTE | 2021-09-14 20:42 | US_ITS ---
Duplex scrotal sonogram INDICATION: Right scrotal pain and swelling. History of chronic injury of the left testis TECHNIQUE: Duplex scrotal sonogram was performed in sagittal axial projections. FINDINGS: The right testis measures 3.2 x 3 x 2.8 cm and exhibits homogeneous echogenicity. There is normal arterial perfusion. Right epididymis is enlarged measuring 5.6 x 3.8 x 2.3 cm and demonstrates diffusely increased vascularity. There is a small hydrocele measuring approximately 2.5 x 1.8 x 1.9 cm. Left testis measures 2. 91.9 x 2.3 cm and appears slightly heterogeneous without focal mass. There is normal vascularity. Left epididymis measures 1 x 0.8 x 0.8 cm and demonstrates normal vascularity. US/Testicular with Arterial Flow IMPRESSION: No evidence for testicular mass or torsion. Findings consistent with acute right-sided epididymitis and hydrocele Heterogeneous appearance to left testis which may be consistent with prior injury. Electronically Signed: Wilian Perez MD at 22:11 EDT ,
--- NOTE | 2021-09-14 20:44 | EX.ED.GUMALE ---
HPI History of Present Illness Chief Complaint: Male Pain/Injury Informant: patient Pain Onset: Days Context: Gradual Onset Timing: Continuous Current Severity: Moderate Maximum Severity: Moderate Narrative Narrative: 61-year-old male extensive past medical history of recent hospitalization for an OR. Has a cardiomyopathy and currently has been running low blood pressures with an EF of 30%. Known AAA, CAD, COPD, TIA and diabetes. He is currently on Plavix and Coumadin. I actually saw this patient 2 days ago complaining of lower abdominal right groin pain that was diagnosed with a UTI in early right-sided orchitis. He was started on Cipro. His culture grew out E. coli and sensitivities are pending. He is complaining of increasing pain in his right testicle and swelling. Associated nausea but no vomiting. He denies any fever. He is urinating and having bowel movements. Prior similar symptoms: Yes Recent Illness/Hospitalization: Yes PFSH [facility] Medical History Abdominal aortic aneurysm (AAA) Abnormal PFT Anxiety Atherosclerosis of coronary artery bypass graft of [place] heart with angina pectoris Blood in stool Chronic HFrEF (heart failure with reduced ejection fraction) COPD (chronic obstructive pulmonary disease) Depression Depression with anxiety Descending aortic aneurysm Diverticulosis Esophageal stricture Essential (primary) hypertension GERD (gastroesophageal reflux disease) Hemangioma History of CVA (cerebrovascular accident) (02/07/21) History of non-ST elevation myocardial infarction (NSTEMI) (02/07/21) HLD (hyperlipidemia) Hypersomnia Hypomagnesemia syndrome ICD (implantable cardioverter-defibrillator) discharge (09/08/21) Ischemic cardiomyopathy Left lower lobe pulmonary nodule Neuropathic pain Nicotine dependence LETTY (obstructive sleep apnea) Osteoporosis PAF (paroxysmal atrial fibrillation) Peripheral vascular occlusive disease Rheumatoid arthritis Right bundle branch block (RBBB) Right ventricular systolic dysfunction Smoking greater than 40 pack years Stroke Testicular pain Thoracic aortic aneurysm (TAA) TIA (transient ischemic attack) Tinnitus Ventricular fibrillation (09/08/21) Home Medications magnesium oxide 400 mg PO DAILY supplement 11/07/18 [History Last Taken 04/20/20] pantoprazole 40 mg tablet,delayed release 40 mg PO BID stomach 11/15/18 [History Last Taken 05/20/20] amitriptyline 25 mg tablet 25 mg PO QHS Depression 08/17/19 [History Last Taken 04/20/20] alendronate 70 mg tablet 70 mg PO QWEEK osteoporosis 03/15/20 [History Last Taken 04/15/20] gabapentin 600 mg tablet 600 mg PO 4X/DAY nerve pain 03/15/20 [History Last Taken 05/20/20] furosemide 40 mg tablet 40 mg PO DAILY water pill 09/13/20 [History Last Taken Unknown] docusate sodium 50 mg capsule 50 mg PO DAILY 10/21/20 [History Last Taken Unknown] potassium chloride 20 mEq tablet,extended release 20 meq PO DAILY 11/11/20 [History Last Taken Unknown] clopidogrel 75 mg tablet 75 mg PO DAILY anti platelet #90 tabs 11/21/20 [Rx Last Taken Unknown] metoprolol succinate 50 mg tablet,extended release 24 hr 50 mg PO BID BP #180 tabs 03/06/21 [Rx Last Taken Unknown] isosorbide mononitrate 60 mg tablet,extended release 24 hr 60 mg PO BID #180 tabs 03/19/21 [Rx Last Taken Unknown] nitroglycerin 0.4 mg sublingual tablet 0.4 mg sublingual Q5M PRN Pain #100 tabs 03/19/21 [Rx Last Taken Unknown] warfarin 4 mg tablet 4 mg PO DAILY 06/04/21 [History Last Taken Unknown] amlodipine 2.5 mg tablet 2.5 mg PO DAILY #30 tabs 06/17/21 [Rx Last Taken Unknown] ergocalciferol (vitamin D2) 1,250 mcg (50,000 unit) capsule 50,000 unit PO QWEEK #24 caps 06/17/21 [Rx Last Taken Unknown] lisinopril 5 mg tablet 5 mg PO DAILY 06/30/21 [History Last Taken Unknown] ipratropium 0.5 mg-albuterol 3 mg (2.5 mg base)/3 mL nebulization soln 3 ml inhalation Q4H PRN shortness of breath or wheezing #180 mL 08/13/21 [Rx Last Taken Unknown] empagliflozin 10 mg tablet (Jardiance) 10 mg PO DAILY 09/06/21 [History Last Taken Unknown] rosuvastatin 40 mg tablet 1 tab PO DAILY 09/06/21 [History Last Taken Unknown] albuterol sulfate 0.63 mg/3 mL solution for nebulization 0.63 mg inhalation Q4H PRN Shortness Of Breath 09/08/21 [History Last Taken Unknown] fluticasone fur. 100 mcg-umeclid 62.5 mcg-vilant 25 mcg inhalat.powder (Trelegy Ellipta) 1 inh inhalation DAILY Check with primary doctor 09/08/21 [History Last Taken Unknown] aspirin 81 mg chewable tablet 81 mg PO DAILY@0800 #90 tabs 09/09/21 [Rx Last Taken Unknown] ciprofloxacin HCl 500 mg tablet (Cipro) 500 mg PO BID 10 days #20 tabs 09/12/21 [Rx Last Taken Unknown] Allergy/AdvReac Type Severity Reaction Status Date / Time oxycodone [From Percocet] Allergy Severe dry heaves Verified 09/14/21 20:33 latex Allergy Unknown unknown Verified 09/14/21 20:33 acetaminophen Allergy Anaphylaxis Verified 09/14/21 20:33 [From Darvocet-N] diphenhydramine Allergy Rash Verified 09/14/21 20:33 [From Benadryl] NSAIDS (Non-Steroidal Allergy Anaphylaxis Verified 09/14/21 20:33 Anti-Inflamma Penicillins Allergy Anaphylaxis Verified 09/14/21 20:33 propoxyphene Allergy Anaphylaxis Verified 09/14/21 20:33 [From Darvocet-N] hydrocodone [From Vicodin] AdvReac Mild Nausea/Vom/ Verified 09/14/21 20:33 Diarrhea peppercorn AdvReac NEEDS Uncoded 08/28/21 07:55 FOLLOW-UP Family History Sister CVA (cerebral vascular accident) Heart disease Hypertension High cholesterol Diabetes Cancer lung cancer Father Arthritis Cancer myeloma Mother Arthritis Cancer Brain cancer Surgical History H/O coronary artery bypass surgery (01/28/12) History of angioplasty of peripheral vessel (01/2015) History of coronary angioplasty (08/09/20) History of coronary artery stent placement (09/08/21) History of implantable cardiac defibrillator (ICD) (09/15/17) History of left heart catheterization (05/20/20) History of left inguinal hernia repair S/P femoral-tibial bypass (12/28/18) Sebaceous cyst Social History household members: significant other Smoking Status: Current every day smoker tobacco type: cigarettes Tobacco: How many years used: 40 quit status: considering quitting alcohol intake: never substance use type: does not use caffeine: Yes (cola) Type: carbonated beverages Number of servings: 4 ROS ROS ED ROS Narrative Right testicular pain, abdominal pain, nausea. Review of Systems ROS Unobtainable: Denies due to encephalopathy Constitutional Constitutional ED: Denies chills or fever(s) Eyes Eyes: Denies blurry vision ENT ENT ED: Denies ear pain Cardiovascular Cardiovascular: Denies chest pain Respiratory/Chest Respiratory/Chest: Denies cough Gastrointestinal Gastrointestinal: Reports abdominal pain and nausea; Denies diarrhea, melena or vomiting Genitourinary Genitourinary ED: Denies dysuria or hematuria Musculoskeletal Musculoskeletal: Denies arthralgias Integumentary Denies abscess Neurologic Neurologic: Denies headache(s) Psychiatric Psychiatric: Denies anxiety Endocrine Endocrinology: Denies polydipsia Hematologic/Lymphatic Hematologic/Lymphatic: Denies easy bleeding Allergic/Immunologic Allergic/Immunologic ED: Denies mouth swelling EXAM Physical Exam Narrative Exam Narrative: 61-year-old male vital signs are stable with his pressures 95/62 but he runs low due to a known cardiomyopathy. H EENT exam unremarkable [place] membranes. Neck nontender no JVD. Lungs clear to auscultation. Heart regular rhythm rate about 90 no murmur. Abdomen is soft nondistended normal bowel sounds no peritoneal signs. No hernia or mass no obstruction. External exam shows a swollen red right testicle consistent with an orchitis. Circumcised. Left hemiscrotum is nontender nonswollen and not red. Moving all 4 extremities. Neurologically is awake and alert with no focal motor deficits. He is standing up Const Vital Signs: 09/14/21 20:30 09/14/21 21:59 Temperature 98.2 F 97.7 F L Temperature Source Temporal Temporal Pulse Rate 91 93 Respiratory Rate 18 22 H Blood Pressure 95/62 102/53 L Blood Pressure Mean 73 69 Pulse Ox 94 97 Oxygen Delivery Method Room Air Room Air Positive well nourished and well developed; Negative for cachectic, contractures or unkempt General Appearance ED: well developed; Negative for unkempt, cachectic, contractures or pallor Nutritional Appearance: Negative for cachectic HEENT Reports moist mucous membranes; Denies dry mucous membranes normocephalic and atraumatic; Negative for trauma or tenderness Mouth ED: No dry mucous membranes Mouth: No dry mucous membranes Eyes PERRL and EOMs intact bilaterally General Eye ED: Negative for pale conjunctiva or scleral icterus Neck no lymphadenopathy, supple and no JVD General: Negative for tenderness or other Resp normal respiratory effort and clear to auscultation bilaterally Effort and Inspection: Negative for retractions or pain with movement Auscultation: Negative for rales, rhonchi or wheezes Cardio regular rate, regular rhythm, S1 normal heart sound, S2 normal heart sound and no murmurs Rate: Negative for bradycardia Rhythm: Negative for abnormal rhythm Heart Sounds: Negative for other GI non-tender, non-distended and no masses Inspection: Negative for abdominal distention Auscultation: normoactive bowel sounds Palpation: soft; Negative for tender or guarding no CVA tenderness Narrative: Right hemiscrotal redness, swelling and tenderness. Left hemiscrotum nontender nonswollen and not red. Circumcised male. Bladder / Kidney Exam: No CVA tenderness Groin / Perineum Exam: Negative for edema Back/Spine no CVA tenderness Cervical Spine: Negative for cervical spine tenderness Thoracic Spine / Upper Back: Negative for thoracic spinal tenderness Extremity normal to inspection General Extremety ED: Negative for edema General Extremity: Negative for edema Neuro oriented x3, moves all extremities and no focal motor deficits Sensorium / Orientation: alert, oriented to person, oriented to place and oriented to time; Negative for orientation impaired, confused, lethargic or stuporous Motor Exam: strength 5/5 throughout Psych mental status grossly normal Appearance: Negative for unkempt Attitude: No agitated Mood & Affect: Negative for depressed or anxious Thought Process: normal thought process Skin General Skin Exam: Negative for jaundice or pallor Lesions: no lesions Rashes: no rashes Trauma: Negative for abrasion MDM MDM MDM Narrative Medical decision making narrative: 61-year-old male currently being treated for UTI and orchitis on Cipro for the last 3 days. Complaining of increasing pain and swelling in his right hemiscrotum. Screening labs to be obtained. He will be given fentanyl for pain and Zofran for nausea. Ultrasound of his right testicle being obtained. Repeat exam at 10:40 PM unchanged. Patient be given a second dose of fentanyl for pain. I did speak to urology on-call, patient will be started on IV Rocephin and admitted to the hospitalist service that I have on page. Discussed with patient and his significant other and they are comfortable with that plan. Lab Data Attestation: I reviewed the patient's lab results. Lab results narrative: CBC shows is unremarkable with a white count 10.8. H&H of 15 and 45. No significant change from 2 days ago. Patient is on Coumadin his INR subtherapeutic at 1.6. Chemistries show sodium 134. Gap of 5. BUN 19 creatinine 1.64 which is around what he had the other day. Glucose of 124. Labs: Laboratory Results - last 24 hr 09/14/21 09/14/21 09/14/21 20:58 20:58 20:58 WBC 10.8 RBC 4.89 Hgb 15.0 Hct 45.0 MCV 92.0 MCH 30.7 MCHC 33.3 RDW Std Deviation 54.4 H RDW Coeff of Jack 16.0 H Plt Count 235 MPV 10.1 Immature Gran % (Auto) 0.800 Neut % (Auto) 65.8 Lymph % (Auto) 19.8 [place] % (Auto) 6.2 Eos % (Auto) 6.5 H Baso % (Auto) 0.9 Absolute Neuts (auto) 7.1 Absolute Lymphs (auto) 2.15 Nucleated RBC % 0 PT 18.4 H INR 1.6 Sodium 134 L Potassium 4.3 Chloride 102 Carbon Dioxide 27.0 Anion Gap 5 BUN 19 H Creatinine 1.64 H Estim Creat Clear Calc 45.34 Est GFR (MDRD) Af Amer 56 L Est GFR (MDRD) Non-Af 46 L BUN/Creatinine Ratio 11.6 Glucose 124 H Calcium 8.9 Radiography Diagnostic Testing: Clinical Impression(s) from Imaging Studies Testicular Ultrasound 09/14/21 20:42 IMPRESSION: No evidence for testicular mass or torsion. Findings consistent with acute right-sided epididymitis and hydrocele Heterogeneous appearance to left testis which may be consistent with prior injury. Electronically Signed: Wilian Perez MD at 22:11 EDT Reading Location ID and State: [facility] / [place] , Service support , Discharge Plan Triage Chief Complaint: Male Pain/Injury ED Provider: Michael Serrato Dx/Rx/DC Orders Clinical Impression: Acute epididymitis, History of cardiomyopathy, Acute UTI, Pain in right testicle, History of diabetes mellitus Prescriptions: No Action pantoprazole 40 mg tablet,delayed release (DR/EC) 40 mg PO BID gabapentin 600 mg tablet 600 mg PO 4X/DAY amitriptyline 25 mg tablet 25 mg PO QHS alendronate 70 mg tablet 70 mg PO QWEEK Rx Instructions: pt takes on Mondays potassium chloride 20 mEq tablet extended release 20 meq PO DAILY metoprolol succinate 50 mg tablet extended release 24 hr 50 mg PO BID Qty: 180 3RF warfarin 4 mg tablet 4 mg PO DAILY Protocol: Dose Management Condition: Wednesday Dose/Route: 4 mg Instruction: 1 x 4 mg tablet Condition: Wednesday Dose/Route: 4 mg Instruction: 1 x 4 mg tablet Condition: Wednesday Dose/Route: 2 mg Instruction: 0.5 x 4 mg tablets Condition: Wednesday Dose/Route: 4 mg Instruction: 1 x 4 mg tablet Condition: Dose/Route: 4 mg Instruction: 1 x 4 mg tablet Condition: Wednesday Dose/Route: 4 mg Instruction: 1 x 4 mg tablet Condition: Wednesday Dose/Route: 4 mg Instruction: 1 x 4 mg tablet Protocol Text: Adjustment Start Date: Wednesday08/19/21 INR Value: 3.5 INR Date: 08/19/21 Recheck Date: 08/26/21 amlodipine 2.5 mg tablet 2.5 mg PO DAILY Qty: 30 11RF ergocalciferol (vitamin D2) 1,250 mcg (50,000 unit) capsule 50,000 unit PO QWEEK Qty: 24 0RF magnesium oxide 400 MG tablet 400 mg PO DAILY furosemide 40 mg tablet 40 mg PO DAILY docusate sodium 50 mg Capsule 50 mg PO DAILY rosuvastatin 40 mg tablet 1 tab PO DAILY Label Comments: TAKE 1 TABLET BY MOUTHCONCE DAILY Jardiance 10 mg tablet 10 mg PO DAILY Label Comments: TAKE 1 TABLET BY MOUTHCONCE DAILY albuterol sulfate 0.63 mg/3 mL Solution For Nebulization 0.63 mg INHALATION Q4H PRN (Reason: Shortness Of Breath) Trelegy Ellipta 100-62.5-25 mcg Blister With Device 1 inh INHALATION DAILY aspirin 81 mg Tablet,Chewable 81 mg PO DAILY@0800 Qty: 90 0RF ciprofloxacin HCl [Cipro] 500 mg tablet 500 mg PO BID 10 Days Qty: 20 0RF clopidogrel 75 mg tablet 75 mg PO DAILY Qty: 90 3RF nitroglycerin 0.4 mg tablet, sublingual 0.4 mg sublingual Q5M PRN (Reason: Pain) Qty: 100 3RF Rx Instructions: do not exceed 3 doses per episode isosorbide mononitrate 60 mg tablet extended release 24 hr 60 mg PO BID Qty: 180 3RF lisinopril 5 mg tablet 5 mg PO DAILY ipratropium-albuterol 0.5 mg-3 mg(2.5 mg base)/3 mL solution for nebulization 3 ml inhalation Q4H PRN (Reason: shortness of breath or wheezing) Qty: 180 3RF Primary Care Provider: Oral Calderon Referrals: Oral Calderon MD [Primary Care Provider] - Disposition Disposition: Acute Care Hospital [facility]
[2021-09-14] MEDS: fentaNYL 100 MCG/2 ML Ampul 50 MCG IV ×2 (20:53→22:51)
[2021-09-14] MEDS: Ondansetron 4 MG/2 ML Vial IV (20:54)
[2021-09-14 21:06] LABS: Absolute Lymphocyte Count 2.15 X10^3/uL (0.83-4.51); Absolute Neutrophil Count 7.1 X10^3/uL (2.0-7.7); Basophil% 0.9 % (0-1); Eosinophils% 6.5 % (0-5); Lymphocyte # 2.15 X10^3/ul (0.83-4.51); Lymphocyte % 19.8 % (19-41); Mean Corp Hgb Conc 33.3 g/dL (32-36); Mean Corpuscular Hgb 30.7 pg (27.0-32.0); Mean Platelet Vol. 10.1 fl (6.2-12.0); Monocyte# 0.67 X10^3/uL; Monocyte% 6.2 % (0-10); NRBC Flagged by Analyzer 0 % (0-5); Neutrophil # 7.13 X10^3/uL (2.7-7.7); Neutrophil % 65.8 % (47-70); Platelet Count 235 K/mm3 (150-450); RBC Distribution Width SD 54.4 fl (35.1-43.9); Red Blood Count 4.89 M/mm3 (4.6-6.2); White Blood Count 10.8 K/mm3 (4.4-11.0)
[2021-09-14 21:23] LABS: International Normalized Ratio 1.6; Prothrombin Time (Protime)PT. 18.4 SECONDS (11.7-14.9)
[2021-09-14 21:27] LABS: Anion Gap 5 (5-15); BUN 19 mg/dL (7-18); BUN/Creat Ratio 11.6 RATIO (10-20); Calcium,Total 8.9 mg/dL (8.5-10.1); Chloride 102 mmol/L (98-107); Creatinine, Serum 1.64 mg/dL (0.70-1.30); EST Glomerular Filtration Rate 46 mL/min (>60); Est Glom Filt Rate - Afr Amer 56 mL/min (>60); Estimated Creatinine Clearance 45.34 ml/min; Glucose 124 mg/dL (74-106); Potassium 4.3 mmol/L (3.5-5.1); Sodium Level 134 mmol/L (136-145)
[2021-09-14 21:59] VITALS: BP 102/53; PULSE 93; RESP 22; TEMP 36.5; O2SAT 97
[2021-09-14 22:00] VITALS: BP 95/61; PULSE 74; RESP 22; TEMP 36.4; O2SAT 91
[2021-09-14] MEDS: Ceftriaxone 1 GM/50 ML BAG IV (22:52)
--- NOTE | 2021-09-14 23:02 | HP.PCM.HOS_ITS ---
[facility] - General General Date of Admission: 09/14/21 Date of Service: 09/14/21 Chief Complaint: R groin, testicle pain, swelling, recent UTI Dx. HPI Narrative The patient is a 61 y/o M w/ PMHx: CKD stage III unclear subtype, COPD, Chronic systolic CHF/Ischemic cardiomyopathy (EF 25% s/p AICD), CAD s/p CABG and PCI, PAD s/p peripheral PCI/fem-tib bypass, HTN, HLD, PAF on coumadin, Diabetes mellitus type II w/ neuropathy, Hx CVA, LETTY, Tobacco use recent discharged 09/09/21 following NSTEMI/ACS admission s/p 09/08/21 PCI LAD and L circumflex who now re-presents to the [facility] ED on 09/14/21 with history of over the last 2 days right lower groin pain with 09/12/21 UTI diagnosis upon ED evaluation with diagnosis of E. Coli UTI dicharged on ciprofloxacin with sensitivities pending with associated nausea without emesis. Pain in the right scrotal testicle region is 10 out of 10, severe, constant throbbing however with any palpation severe stabbing. Work-up in the ED included T98.2, heart rate 91, BP initially 95/62 with most recent repeat 102/53, respiratory rate 18, 94 to 97% on room air, CBC with WBC 10.8, hemoglobin 15, platelet 235 without marked shift, coags with INR 1.6, BMP with sodium 134, BUN/creat 19/1.64, glucose 124, testicular ultrasound with no evidence for testicular mass or torsion, findings consistent with an acute right-sided epididymitis and hydrocele, heterogeneous appearance of the left testes may be consistent with a prior injury. In the ED patient ministered Zofran, fentanyl 50 mcg IV x2 and Rocephin 1 g x 1. [facility] Medical History Abdominal aortic aneurysm (AAA) Abnormal PFT Anxiety Atherosclerosis of coronary artery bypass graft of [place] heart with angina pectoris Blood in stool Chronic HFrEF (heart failure with reduced ejection fraction) COPD (chronic obstructive pulmonary disease) Depression Depression with anxiety Descending aortic aneurysm Diverticulosis Esophageal stricture Essential (primary) hypertension GERD (gastroesophageal reflux disease) Hemangioma History of CVA (cerebrovascular accident) (02/07/21) History of non-ST elevation myocardial infarction (NSTEMI) (02/07/21) HLD (hyperlipidemia) Hypersomnia Hypomagnesemia syndrome ICD (implantable cardioverter-defibrillator) discharge (09/08/21) Ischemic cardiomyopathy Left lower lobe pulmonary nodule Neuropathic pain Nicotine dependence LETTY (obstructive sleep apnea) Osteoporosis PAF (paroxysmal atrial fibrillation) Peripheral vascular occlusive disease Rheumatoid arthritis Right bundle branch block (RBBB) Right ventricular systolic dysfunction Smoking greater than 40 pack years Stroke Testicular pain Thoracic aortic aneurysm (TAA) TIA (transient ischemic attack) Tinnitus Ventricular fibrillation (09/08/21) Home Medications magnesium oxide 400 mg PO DAILY supplement 11/07/18 [History Last Taken 04/20/20] pantoprazole 40 mg tablet,delayed release 40 mg PO BID stomach 11/15/18 [History Last Taken 05/20/20] amitriptyline 25 mg tablet 25 mg PO QHS Depression 08/17/19 [History Last Taken 04/20/20] alendronate 70 mg tablet 70 mg PO QWEEK osteoporosis 03/15/20 [History Last Taken 04/15/20] gabapentin 600 mg tablet 600 mg PO 4X/DAY nerve pain 03/15/20 [History Last Take n 05/20/20] furosemide 40 mg tablet 40 mg PO DAILY water pill 09/13/20 [History Last Taken Unknown] docusate sodium 50 mg capsule 50 mg PO DAILY 10/21/20 [History Last Taken Unknown] potassium chloride 20 mEq tablet,extended release 20 meq PO DAILY 11/11/20 [History Last Taken Unknown] clopidogrel 75 mg tablet 75 mg PO DAILY anti platelet #90 tabs 11/21/20 [Rx Last Taken Unknown] metoprolol succinate 50 mg tablet,extended release 24 hr 50 mg PO BID BP #180 tabs 03/06/21 [Rx Last Taken Unknown] isosorbide mononitrate 60 mg tablet,extended release 24 hr 60 mg PO BID #180 tabs 03/19/21 [Rx Last Taken Unknown] nitroglycerin 0.4 mg sublingual tablet 0.4 mg sublingual Q5M PRN Pain #100 tabs 03/19/21 [Rx Last Taken Unknown] warfarin 4 mg tablet 4 mg PO DAILY 06/04/21 [History Last Taken Unknown] amlodipine 2.5 mg tablet 2.5 mg PO DAILY #30 tabs 06/17/21 [Rx Last Taken Unknown] ergocalciferol (vitamin D2) 1,250 mcg (50,000 unit) capsule 50,000 unit PO QWEEK #24 caps 06/17/21 [Rx Last Taken Unknown] lisinopril 5 mg tablet 5 mg PO DAILY 06/30/21 [History Last Taken Unknown] ipratropium 0.5 mg-albuterol 3 mg (2.5 mg base)/3 mL nebulization soln 3 ml inhalation Q4H PRN shortness of breath or wheezing #180 mL 08/13/21 [Rx Last Taken Unknown] empagliflozin 10 mg tablet (Jardiance) 10 mg PO DAILY 09/06/21 [History Last Taken Unknown] rosuvastatin 40 mg tablet 1 tab PO DAILY 09/06/21 [History Last Taken Unknown] albuterol sulfate 0.63 mg/3 mL solution for nebulization 0.63 mg inhalation Q4H PRN Shortness Of Breath 09/08/21 [History Last Taken Unknown] fluticasone fur. 100 mcg-umeclid 62.5 mcg-vilant 25 mcg inhalat.powder (Trelegy Ellipta) 1 inh inhalation DAILY Check with primary doctor 09/08/21 [History Last Taken Unknown] aspirin 81 mg chewable tablet 81 mg PO DAILY@0800 #90 tabs 09/09/21 [Rx Last Taken Unknown] ciprofloxacin HCl 500 mg tablet (Cipro) 500 mg PO BID 10 days #20 tabs 09/12/21 [Rx Last Taken Unknown] Allergy/AdvReac Type Severity Reaction Status Date / Time oxycodone [From Percocet] Allergy Severe dry heaves Verified 09/14/21 20:33 latex Allergy Unknown unknown Verified 09/14/21 20:33 acetaminophen Allergy Anaphylaxis Verified 09/14/21 20:33 [From Darvocet-N] diphenhydramine Allergy Rash Verified 09/14/21 20:33 [From Benadryl] NSAIDS (Non-Steroidal Allergy Anaphylaxis Verified 09/14/21 20:33 Anti-Inflamma Penicillins Allergy Anaphylaxis Verified 09/14/21 20:33 propoxyphene Allergy Anaphylaxis Verified 09/14/21 20:33 [From Darvocet-N] hydrocodone [From Vicodin] AdvReac Mild Nausea/Vom/ Verified 09/14/21 20:33 Diarrhea peppercorn AdvReac NEEDS Uncoded 08/28/21 07:55 FOLLOW-UP Family History Sister CVA (cerebral vascular accident) Heart disease Hypertension High cholesterol Diabetes Cancer lung cancer Father Arthritis Cancer myeloma Mother Arthritis Cancer Brain cancer Surgical History H/O coronary artery bypass surgery (01/28/12) History of angioplasty of peripheral vessel (01/2015) History of coronary angioplasty (08/09/20) History of coronary artery stent placement (09/08/21) History of implantable cardiac defibrillator (ICD) (09/15/17) History of left heart catheterization (05/20/20) History of left inguinal hernia repair S/P femoral-tibial bypass (12/28/18) Sebaceous cyst Social History household members: significant other Smoking Status: Current every day smoker tobacco type: cigarettes Tobacco: How many years used: 40 quit status: considering quitting alcohol intake: never substance use type: does not use caffeine: Yes (cola) Type: carbonated beverages Number of servings: 4 ROS ROS Narrative Admission Review of Systems: CONSTITUTIONAL: No weight loss, fever, chills, + weakness or fatigue. HEENT: Eyes: No visual loss, blurred vision, double vision or yellow sclerae. Ears, Nose, Throat: No hearing loss, sneezing, congestion, runny nose or sore throat. SKIN: No rash or itching, lesions, wounds. CARDIOVASCULAR: + Recent CP admit, none since discharge. No palpitations, edema, orthopnea, syncopal events. RESPIRATORY: No shortness of breath, cough or sputum, wheezing, hemoptysis. GASTROINTESTINAL: No anorexia, nausea, vomiting or diarrhea, abdominal pain, melena, BRBPR. GENITOURINARY: + Testicular pain, edema. NEUROLOGICAL: No headache, dizziness, syncope, paralysis, ataxia, numbness or tingling in the extremities, focal weakness, change in bowel or bladder control, seizure. MUSCULOSKELETAL: + muscle, back pain, joint pain or stiffness. HEMATOLOGIC: + anemia, bleeding or bruising. LYMPHATICS: No enlarged nodes. No history of splenectomy. PSYCHIATRIC: No history of depression or anxiety. ENDOCRINOLOGIC: No reports of sweating, cold or heat intolerance. No polyuria or polydipsia. ALLERGIES: + history of hives, rhinitis. Vital Signs Vital Signs Vital Signs: 09/14/21 20:30 09/14/21 21:59 09/14/21 22:00 Temperature 98.2 F 97.7 F L 97.6 F L Temperature Source Temporal Temporal Temporal Pulse Rate 91 93 74 Respiratory Rate 18 22 H 22 H Blood Pressure 95/62 102/53 L 95/61 Blood Pressure Mean 73 69 72 Pulse Ox 94 97 91 Oxygen Delivery Method Room Air Room Air Room Air Weight Weight: 190 lb Body Mass Index (BMI) 29.7 Physical Exam Narrative Physical Examination: General: Awake, alert, oriented x 3 and cooperative, laying in ED bed, severely uncomfortable appearing. Skin: Normal color, normal turgor, no icterus, no cyanosis except for right testicular enlargement with mild redness to the overlying scrotum. HEENT: AT/NC, EOMI, PERRLA, mildly dry MM, no carotid bruits or JVD noted. Lungs: Mildly diminished, greater bases, occasional end expiratory wheeze, no rales or rhonchi. Heart: Currently regular rate and rhythm; no gallop, rub audible. Abdomen: Soft, overweight, NTTP, ND, distant normal BS, no HSM. : Right testicle swollen, edematous, mildly red overlying scrotal region, tender to palpation. Extremities: No cyanosis, clubbing, or edema. Neurological: Patient awake, alert, oriented as noted, cognitive function intact; pupils equally reactive to light and accommodation, cranial nerves II- XII grossly normal, moving all 4 extremities, no focal deficits, strength moderately globally decreased secondary to acute presentation as noted with severe testicular pain. Psychiatric: Affect appears uncomfortable, no acute evidence of depressive or anxiety feelings. Results Lab / Micro Data Result Diagrams: 09/14/21 20:58 09/14/21 20:58 Labs: Laboratory Results - last 24 hr 09/14/21 20:58: WBC 10.8, RBC 4.89, Hgb 15.0, Hct 45.0, MCV 92.0, MCH 30.7, MCHC 33.3, RDW Std Deviation 54.4 H, RDW Coeff of Jack 16.0 H, Plt Count 235, MPV 10.1, Immature Gran % (Auto) 0.800, Neut % (Auto) 65.8, Lymph % (Auto) 19.8, [place] % (Auto) 6.2, Eos % (Auto) 6.5 H, Baso % (Auto) 0.9, Absolute Neuts (auto) 7.1, Absolute Lymphs (auto) 2.15, Nucleated RBC % 0 09/14/21 20:58: Sodium 134 L, Potassium 4.3, Chloride 102, Carbon Dioxide 27.0, Anion Gap 5, BUN 19 H, Creatinine 1.64 H, Estim Creat Clear Calc 45.34, Est GFR (MDRD) Af Amer 56 L, Est GFR (MDRD) Non-Af 46 L, BUN/Creatinine Ratio 11.6, Glucose 124 H, Calcium 8.9 09/14/21 20:58: PT 18.4 H, INR 1.6 Radiology Impression Testicular Ultrasound 09/14/21 20:42 IMPRESSION: No evidence for testicular mass or torsion. Findings consistent with acute right-sided epididymitis and hydrocele Heterogeneous appearance to left testis which may be consistent with prior injury. Electronically Signed: Wilian Perez MD at 22:11 EDT Reading Location ID and State: [address] [place] [address] , Service support , Assessment & Plan Assessment/Plan (1) Acute epididymitis: PLAN: Plan The patient is a 61 y/o M w/ PMHx: CKD stage III unclear subtype, COPD, Chronic systolic CHF/Ischemic cardiomyopathy (EF 25% s/p AICD), CAD s/p CABG and PCI, PAD s/p peripheral PCI/fem-tib bypass, HTN, HLD, PAF on coumadin, Diabetes mellitus type II w/ neuropathy, Hx CVA, LETTY, Tobacco use recent discharged 09/09/21 following NSTEMI/ACS admission s/p 09/08/21 PCI LAD and L circumflex who now re-presents to the [facility] ED on 09/14/21 with history of over the last 2 days right lower groin pain with 09/12/21 UTI diagnosis upon ED evaluation with diagnosis of E. Coli UTI dicharged on ciprofloxacin with sensitivities pending with associated nausea without emesis. #1. Acute right-sided epididymitis with hydrocele w/ Recent E. Coli UTI: Will admit to PCU given recent cardiac intervention and hypertension, encourage elevation of the testes, altough likely associated with recent UTI, will obtain gonorrhea and chlamydia to be cautious and maintain on IV rocephin and doxycycline pending results, will judiciously hydrate, as needed oral and IV pain regimen judiciously given hypotension. If not improving or worsened appearing would plan to consult Dr. Donald, Urology. #2. CAD status post recent PCI, recent NSTEMI: Recent discharge 09/09/2021 following NSTEMI/ACS admission status post 09/08/2021 PCI LAD and left circumflex, will continue aspirin, Plavix, statin, holding metoprolol, lisinopril given hypotension, add back once appropriate. #3 chronic Kidney Disease Stage III, unclear subtype with mild renal insufficiency likely associated with acute presentation and recent cat heterization: Admission BUN/Cr 19/1.64, baseline renal function primarily 1.2- 1.4, repeat BMP in AM. #4. Chronic systolic CHF/ischemic cardiomyopathy: EF 25% status post AICD placement, will continue aspirin, Plavix, statin, temporarily holding patient hypertensive regimen as noted, judicious hydration if needed. #5. Chronic COPD: We will temporarily hold home inhalers and in the interim transition to ATC duonebs, PRN albuterol, HOB, IS parameters. #6. PAD: Status post peripheral PCI and fem-tib bypass, will continue aspirin, Plavix, statin, temporarily holding hypertensive regimen, continue diabetic regimen with alterations as noted. #7. PAF: Temporarily holding patient home metoprolol regimen, continue Coumadin with INR trending. #8. History CVA: We will continue patient home aspirin, Plavix, statin, temporarily holding hypertensive regimen, continue diabetic regimen with alt erations as noted. #9. Diabetes mellitus type II: Hold oral home regimen, ADA diet, accu checks w/ ISS. #10. Hypertension: Patient with hypotension upon presentation, potentially secondary to acute presentation, will hold hypertensive regimen, resume once improve. #11. Hyperlipidemia: Continue home statin regimen. #12 GERD: We will continue patient on PPI. #13. Tobacco Abuse: Encouraged cessation, inpatient consultation per RT, NR if desired. #14. LETTY: BIPAP nightly. #15. DVT prophylaxis: SCDs, continue home Coumadin with INR trending. Charges/Coding Visit Charges OBSV E&M: 59260 Initial observation care L3
[2021-09-14 23:29] VITALS: PULSE 72; BMI 29.7
[2021-09-14 23:36] VITALS: BP 101/68; PULSE 70; RESP 20; TEMP 36.1; O2SAT 95
[2021-09-15] VITALS (15 sets, daily range): BP systolic 93–120; BP diastolic 57–70; PULSE 76–117; RESP 16–22; TEMP 36.8–37.6; O2SAT 92–98
[2021-09-15] MEDS: 0.9% Normal Saline 1,000 ML 75 ML IV ×2 (00:41→13:32)
[2021-09-15] MEDS: CLARIFY ORDER NOTE (01:54)
[2021-09-15] MEDS: Doxycycline 100 MG CAPSULE PO ×3 (02:27→21:01)
[2021-09-15] MEDS: fentaNYL 100 MCG/2 ML Ampul 50 MCG IV ×8 (02:27→23:04)
[2021-09-15 02:39] LABS: Chlamydia Trachomatis by PCR Negative (Negative); Neisserai gonorrhoeae by PCR Negative (Negative); Probe Check PASS; Sample Adequacy Control PASS; Specimen Processing Control PASS
[2021-09-15 06:22] LABS: Absolute Neutrophil Count 5.9 X10^3/uL (2.0-7.7); Basophil# 0.14 X10^3/uL; Basophil% 1.5 % (0-1); Eosinophil# 0.62 X10^3/uL; Eosinophils% 6.8 % (0-5); Hematocrit 46.9 % (40-54); Hemoglobin 14.4 g/dL (13.0-16.5); Lymphocyte % 17.6 % (19-41); Mean Corp Hgb Conc 30.7 g/dL (32-36); Mean Corpuscular Hgb 31.1 pg (27.0-32.0); Mean Corpuscular Volume 101.3 fL (80-94); Mean Platelet Vol. 10.3 fl (6.2-12.0); Monocyte# 0.72 X10^3/uL; Monocyte% 7.9 % (0-10); NRBC Flagged by Analyzer 0 % (0-5); Neutrophil # 5.92 X10^3/uL (2.7-7.7); Neutrophil % 65.4 % (47-70); Platelet Count 173 K/mm3 (150-450); RBC Distribution Width CV 16.7 % (11.6-14.6); RBC Distribution Width SD 62.7 fl (35.1-43.9); Red Blood Count 4.63 M/mm3 (4.6-6.2); White Blood Count 9.1 K/mm3 (4.4-11.0)
[2021-09-15 06:41] LABS: International Normalized Ratio 1.5; Prothrombin Time (Protime)PT. 18.2 SECONDS (11.7-14.9)
[2021-09-15 06:54] LABS: ALB/GLOB Ratio 0.6 RATIO (0.9-2.4); AST(SGOT) 21 U/L (15-37); Alanine Aminotransfer ALT/SGPT 26 U/L (16-61); Albumin, Serum 2.6 g/dL (3.2-5.0); Alkaline Phosphatase 72 U/L (45-117); Anion Gap 3 (5-15); BUN 15 mg/dL (7-18); BUN/Creat Ratio 10.4 RATIO (10-20); Calcium,Total 8.1 mg/dL (8.5-10.1); Chloride 106 mmol/L (98-107); Creatinine, Serum 1.44 mg/dL (0.70-1.30); EST Glomerular Filtration Rate 53 mL/min (>60); Est Glom Filt Rate - Afr Amer 65 mL/min (>60); Estimated Creatinine Clearance 51.64 ml/min; Globulin 4.2 g/dL (2.2-4.2); Glucose 128 mg/dL (74-106); Potassium 4.3 mmol/L (3.5-5.1); Protein, Total 6.8 g/dL (6.4-8.2); Sodium Level 134 mmol/L (136-145)
[2021-09-15] MEDS: Albuterol 2.5 MG/3 ML VIAL.NEB. INHALATION ×3 (07:20→15:38)
[2021-09-15] MEDS: Magnesium Chloride 64 MG Delay Rel.Tablet 128 MG PO (08:15)
[2021-09-15] MEDS: Aspirin 81 MG TAB.CHEW PO (08:15)
[2021-09-15] MEDS: Pantoprazole Sodium 40 MG Tablet PO ×2 (08:15→21:02)
[2021-09-15] MEDS: Potassium Chloride Oral Tablet 20 MEQ PO (08:15)
[2021-09-15] MEDS: Clopidogrel Bisulfate 75 MG Tablet PO (08:15)
[2021-09-15] MEDS: Docusate Sodium 100 MG Capsule PO (08:16)
[2021-09-15] MEDS: Gabapentin 600 MG Tablet PO ×4 (08:21→21:11)
[2021-09-15] MEDS: Ceftriaxone 1 GM/50 ML BAG IV (08:21)
[2021-09-15 08:25] LABS: Bedside Glucose 114 mg/dL (74-106)
[2021-09-15] MEDS: Ondansetron 4 MG/2 ML Vial IV ×2 (10:50→21:11)
--- NOTE | 2021-09-15 10:57 | PN.HOSP_ITS ---
Documented by User: Pascale Martines NP, UTILITY LOCATE TECHNICIAN-C 09/15/21 11:24 Subjective Subjective Patient seen and examined. Reports persistent cough which began this morning. Reports ongoing testicular pain. Patient states he intermittently feels hot/cold. Objective Data Objective Data Vital Signs: Vital Signs Temp Pulse Resp BP Pulse Ox O2 Del Method O2 Flow Rate 98.6 F 93 18 93/57 L 94 Nasal Cannula 2 09/15/21 08:05 09/15/21 08:05 09/15/21 08:05 09/15/21 08:05 09/15/21 08:05 09/15/21 08:10 09/15/21 08:10 Oxygen Flow Rate (L/min) 2 Oxygen Delivery Method Nasal Cannula Weight: 191 lb 2.252 oz Body Mass Index (BMI) 29.7 Intake & Output: Intake and Output for Last 24 Hours 09/13/21 09/14/21 09/15/21 23:59 23:59 23:59 Intake Total 550 / 550 50 / 50 Balance 550 / 550 50 / 50 Lab / Micro Data Result Diagrams: 09/15/21 06:00 09/15/21 06:00 Labs: Laboratory Results - last 24 hr 09/14/21 20:58: WBC 10.8, RBC 4.89, Hgb 15.0, Hct 45.0, MCV 92.0, MCH 30.7, MCHC 33.3, RDW Std Deviation 54.4 H, RDW Coeff of Jack 16.0 H, Plt Count 235, MPV 10.1, Immature Gran % (Auto) 0.800, Neut % (Auto) 65.8, Lymph % (Auto) 19.8, [place] % (Auto) 6.2, Eos % (Auto) 6.5 H, Baso % (Auto) 0.9, Absolute Neuts (auto) 7.1, Absolute Lymphs (auto) 2.15, Nucleated RBC % 0 09/14/21 20:58: Sodium 134 L, Potassium 4.3, Chloride 102, Carbon Dioxide 27.0, Anion Gap 5, BUN 19 H, Creatinine 1.64 H, Estim Creat Clear Calc 45.34, Est GFR (MDRD) Af Amer 56 L, Est GFR (MDRD) Non-Af 46 L, BUN/Creatinine Ratio 11.6, Glucose 124 H, Calcium 8.9 09/14/21 20:58: PT 18.4 H, INR 1.6 09/14/21 23:15: Chlam trachomat DNA PCR Negative, N.gonorrhoeae DNA (PCR) Negative 09/15/21 06:00: WBC 9.1, RBC 4.63, Hgb 14.4, Hct 46.9, MCV 101.3 H D, MCH 31.1, MCHC 30.7 L D, RDW Std Deviation 62.7 H, RDW Coeff of Jack 16.7 H, Plt Count 173, MPV 10.3, Immature Gran % (Auto) 0.800, Neut % (Auto) 65.4, Lymph % (Auto) 17.6 L, [place] % (Auto) 7.9, Eos % (Auto) 6.8 H, Baso % (Auto) 1.5 H, Absolute Neuts (auto) 5.9, Absolute Lymphs (auto) 1.60, Nucleated RBC % 0 09/15/21 06:00: PT 18.2 H, INR 1.5 09/15/21 06:00: Sodium 134 L, Potassium 4.3, Chloride 106, Carbon Dioxide 25.0, Anion Gap 3 L, BUN 15, Creatinine 1.44 H, Estim Creat Clear Calc 51.64, Est GFR (MDRD) Af Amer 65, Est GFR (MDRD) Non-Af 53 L, BUN/Creatinine Ratio 10.4, Glucose 128 H, Calcium 8.1 L, Total Bilirubin 0.40, AST 21, ALT 26, Alkaline Phosphatase 72, Total Protein 6.8, Albumin 2.6 L, Globulin 4.2, Albumin/Globulin Ratio 0.6 L 09/15/21 06:56: POC Glucose 114 H Radiography Diagnostic Testing: Radiology Impression Testicular Ultrasound 09/14/21 20:42 IMPRESSION: No evidence for testicular mass or torsion. Findings consistent with acute right-sided epididymitis and hydrocele Heterogeneous appearance to left testis which may be consistent with prior injury. Electronically Signed: Wilian Perez MD at 22:11 EDT , Physical Exam Const alert and oriented x3 Constitutional Narrative: Coughing persistently during exam HEENT normocephalic Mouth: dry mucous membranes Eyes PERRL, EOMs intact bilaterally and conjunctivae normal Neck no lymphadenopathy Resp clear to auscultation bilaterally Effort and Inspection: tachypneic Auscultation: diminished lung sounds Cardio regular rate, regular rhythm and no murmurs Peripheral Pulses: pulses 2+ throughout GI normal to inspection, nondistended, normoactive bowel sounds, non-tender and non-distended Extremity normal to inspection Skin no rashes or lesions noted Skin Narrative: Scrotal swelling Lesions: no lesions Rashes: no rashes Trauma: no lacerations or abrasions Neuro CN's II-XII intact bilaterally, no focal motor deficits, no sensory deficits noted and deep tendon reflexes 2+ bilaterally Psych mental status grossly normal and affect normal Assessment & Plan Assessment/Plan (1) Urinary tract infection: PLAN: Plan 1. Acute right-sided epididymitis with hydrocele, recent diagnosis UTI-failed outpatient treatment with Cipro. Prior urine culture 09/12/2021 grew E. coli. IV Rocephin, oral doxycycline. Supportive management for epididymitis/hydrocele. As needed pain regimen. Urology consulted. 2. CAD with history of recent PCI-continue aspirin, statin, Plavix. Metoprolol, lisinopril on hold due to borderline low blood pressure. 3. Chronic hypoxic respiratory failure secondary to chronic COPD and chronic heart failure with reduced ejection fraction-recently discharged on 2 L supp lemental oxygen. Continue oxygen to maintain O2 at or above 90%. 4. Chronic heart failure with reduced ejection fraction/ischemic cardiomyopathy- EF 25%. AICD in place. Continue medical management. 5. Chronic COPD-as needed albuterol aerosols. 6. Chronic kidney disease stage IIIa- at baseline. 7. PAD-history of fem-tib bypass. Continue aspirin, Plavix, statin. 8. Paroxysmal atrial fibrillation-on Coumadin, metoprolol. 9. History of CVA-continue aspirin, Plavix, statin. 10. Type 2 diabetes yaoldndl-Xoem-Hrnia with sliding scale insulin. 11. Hypertension-resume home BP regimen when blood pressure improved. 12. Hyperlipidemia-continue statin. 13. GERD-continue PPI. 14. Tobacco dependence-encouraged cessation. 15. LETTY-on BiPAP nightly. DVT prophylaxis-Coumadin This patient was seen by Pascale Conrad, UTILITY LOCATE TECHNICIAN-C under the supervision of Dr. Cleveland. Time spent examining patient, reviewing data and subsequent management of care: 15 minutes Documented by User: Dr. Colten Cleveland MD 09/15/21 11:57 Objective Data Lab / Micro Data Result Diagrams: 09/15/21 06:00 09/15/21 06:00 Assessment & Plan Assessment/Plan (1) Urinary tract infection: Charges/Coding Addendum Addendum: Addendum: Dr. Cleveland I personally examined the patient and reviewed the chart. I agree with the above. 61-year-old male who was recently admitted to the hospital with a non- STEMI with stent placement. He presents back with a UTI and a right-sided epididymitis with hydrocele on ultrasound. Continue to wait for urine culture and continue with IV antibiotics. We will make adjustments with pain medications as he is continuing to have swelling. If this gets worse or is very slow to improve we will consult urology for evaluation. Clinical time spent in all aspects of patient care: 20 minutes Visit Charges Inpatient E&M: 84447 Subs Hosp L2
[2021-09-15 11:15] LABS: Bedside Glucose 128 mg/dL (74-106)
--- NOTE | 2021-09-15 11:21 | CPS ---
Pt doesn't wear a CPAP @home because he couldn't afford it so he sent machine back. He is not interested in wearing one here.
[2021-09-15] MEDS: guaiFENesin 10 ML UDC (200MG/10ML) PO ×2 (11:54→16:23)
--- NOTE | 2021-09-15 14:48 | CASEMGMT ---
FAVIOLA ALCOCER Chart review: Patient was admitted 09/06-09/09/21 for Acute Coronary Syndrome and NSTEMI. Patient was discharged on home oxygen to home with support from significant other. Patient returned to ED on 09/12/21 for scrotal pain and was diagnosed with UTI and discharged on Cipro BID back to home. Patient returned 09/14/21 for increased scrotal swelling and continued pained. Patient admitted for Epididymitis with hydrocele and failed outpatient UTI. Patient placed on IV Rocephin and PO Doxy and urology consulted. Patient to return home, will monitor for possible discharge needs.
--- NOTE | 2021-09-15 15:35 | CASEMGMT ---
Social Work Note Per cafeteria helper questions, pt has completed HCPOA and LW and provided documents to [facility]. SW reviewed chart, both HCPOA and LW are on file at [facility]. Pt's significant other Brit Thomson is pt's HCPOA. Frances Hope FINANCIAL AID OFFICER, THREAD SPOOLER
[2021-09-15 17:01] LABS: Bedside Glucose 131 mg/dL (74-106)
[2021-09-15] MEDS: Atorvastatin Calcium 80 MG Tablet PO (21:02)
[2021-09-15] MEDS: 0.9% Saline Lock 10 ML Syringe IV ×2 (21:03→23:04)
[2021-09-15] MEDS: Amitriptyline 25 MG Tablet PO (22:34)
[2021-09-15] MEDS: Insulin Lispro 100 UNIT/ML INSULN.PEN SC (22:34)
[2021-09-15 22:35] LABS: Bedside Glucose 170 mg/dL (74-106)
[2021-09-16] VITALS (12 sets, daily range): BP systolic 96–137; BP diastolic 56–81; PULSE 97–114; RESP 18–22; TEMP 36.6–36.9; O2SAT 94–97
[2021-09-16] MEDS: 0.9% Normal Saline 1,000 ML 75 ML IV ×2 (02:09→18:03)
[2021-09-16] MEDS: fentaNYL 100 MCG/2 ML Ampul 50 MCG IV ×7 (02:24→22:08)
[2021-09-16] MEDS: 0.9% Saline Lock 10 ML Syringe IV ×4 (02:24→22:10)
[2021-09-16 06:29] LABS: Absolute Lymphocyte Count 1.71 X10^3/uL (0.83-4.51); Absolute Neutrophil Count 5.9 X10^3/uL (2.0-7.7); Basophil% 1.1 % (0-1); Eosinophil# 0.45 X10^3/uL; Hematocrit 43.8 % (40-54); Hemoglobin 13.8 g/dL (13.0-16.5); Lymphocyte # 1.71 X10^3/ul (0.83-4.51); Lymphocyte % 19.1 % (19-41); Mean Corp Hgb Conc 31.5 g/dL (32-36); Mean Corpuscular Hgb 30.8 pg (27.0-32.0); Mean Corpuscular Volume 97.8 fL (80-94); Mean Platelet Vol. 9.6 fl (6.2-12.0); Monocyte# 0.65 X10^3/uL; Monocyte% 7.3 % (0-10); NRBC Flagged by Analyzer 0 % (0-5); Neutrophil # 5.87 X10^3/uL (2.7-7.7); Neutrophil % 65.8 % (47-70); POSITIVE COUNT YES; Platelet Count 195 K/mm3 (150-450); RBC Distribution Width CV 16.4 % (11.6-14.6); RBC Distribution Width SD 59.6 fl (35.1-43.9); Red Blood Count 4.48 M/mm3 (4.6-6.2); White Blood Count 8.9 K/mm3 (4.4-11.0)
[2021-09-16 06:39] LABS: Differential Indicated SCAN CRITERIA MET
[2021-09-16 06:55] LABS: Differential Comment SCANNED; Platelet Estimate ADEQUATE (ADEQ)
[2021-09-16 07:00] LABS: Anion Gap 5 (5-15); BUN 8 mg/dL (7-18); BUN/Creat Ratio 6.3 RATIO (10-20); Calcium,Total 8.5 mg/dL (8.5-10.1); Chloride 107 mmol/L (98-107); Creatinine, Serum 1.26 mg/dL (0.70-1.30); EST Glomerular Filtration Rate 62 mL/min (>60); Est Glom Filt Rate - Afr Amer 75 mL/min (>60); Estimated Creatinine Clearance 59.02 ml/min; Glucose 121 mg/dL (74-106); Potassium 4.5 mmol/L (3.5-5.1); Sodium Level 134 mmol/L (136-145)
[2021-09-16 07:05] LABS: Bedside Glucose 128 mg/dL (74-106)
[2021-09-16] MEDS: Aspirin 81 MG TAB.CHEW PO (08:18)
[2021-09-16] MEDS: Ondansetron 4 MG/2 ML Vial IV ×2 (08:18→22:08)
[2021-09-16] MEDS: Magnesium Chloride 64 MG Delay Rel.Tablet 128 MG PO (08:18)
[2021-09-16] MEDS: Potassium Chloride Oral Tablet 20 MEQ PO (08:19)
[2021-09-16] MEDS: Docusate Sodium 100 MG Capsule PO (10:50)
[2021-09-16] MEDS: Ceftriaxone 1 GM/50 ML BAG IV (10:50)
[2021-09-16] MEDS: Doxycycline 100 MG CAPSULE PO (10:50)
[2021-09-16] MEDS: Pantoprazole Sodium 40 MG Tablet PO ×2 (10:52→22:10)
[2021-09-16] MEDS: Clopidogrel Bisulfate 75 MG Tablet PO (10:52)
[2021-09-16] MEDS: Gabapentin 600 MG Tablet PO ×4 (10:58→22:10)
[2021-09-16 12:15] LABS: Bedside Glucose 144 mg/dL (74-106)
--- NOTE | 2021-09-16 14:02 | PN.HOSP_ITS ---
Documented by User: Pascale Martines NP, [employer] 09/16/21 14:09 Subjective Subjective Patient seen and examined. Reports of continued significant scrotal discomfort. Reports pain in his groin bilaterally as well. Urology consulted. Objective Data Objective Data Vital Signs: Vital Signs Temp Pulse Resp BP Pulse Ox O2 Del Method O2 Flow Rate 97.8 F 97 18 127/81 H 97 Nasal Cannula 2 09/16/21 12:09/16/21 12:09/16/21 12:09/16/21 12:09/16/21 12:09/16/21 12:09/16/21 12:26 Oxygen Flow Rate (L/min) 2 Oxygen Delivery Method Nasal Cannula Weight: 189 lb 6.033 oz Body Mass Index (BMI) 29.7 Intake & Output: Intake and Output for Last 24 Hours 09/14/21 09/15/21 09/16/21 23:59 23:59 23:59 Intake Total 550 / 550 1013.75 / 1333.75 2716.25 / 2716.25 Output Total 850 / 1500 1325 / 1325 Balance 550 / 550 163.75 / -166.25 1391.25 / 1391.25 Lab / Micro Data Result Diagrams: 09/16/21 06:14 09/16/21 06:14 Labs: Laboratory Results - last 24 hr 09/15/21 16:18: POC Glucose 131 H 09/15/21 21:11: POC Glucose 170 H 09/16/21 06:14: WBC 8.9, RBC 4.48 L, Hgb 13.8, Hct 43.8, MCV 97.8 H, MCH 30.8, MCHC 31.5 L, RDW Std Deviation 59.6 H, RDW Coeff of Jack 16.4 H, Plt Count 195, MPV 9.6, Immature Gran % (Auto) 1.700 H, Neut % (Auto) 65.8, Lymph % (Auto) 19.1, [place] % (Auto) 7.3, Eos % (Auto) 5.0, Baso % (Auto) 1.1 H, Absolute Neuts (auto) 5.9, Absolute Lymphs (auto) 1.71, Nucleated RBC % 0, Differential Comment SCANNED, Platelet Estimate ADEQUATE 09/16/21 06:14: Sodium 134 L, Potassium 4.5, Chloride 107, Carbon Dioxide 22.0, Anion Gap 5, BUN 8, Creatinine 1.26, Estim Creat Clear Calc 59.02, Est GFR (MDRD) Af Amer 75, Est GFR (MDRD) Non-Af 62, BUN/Creatinine Ratio 6.3 L, Glucose 121 H, Calcium 8.5 09/16/21 06:14: POC Glucose 128 H 09/16/21 11:55: POC Glucose 144 H Physical Exam Const alert and oriented x3 Constitutional Narrative: Appears uncomfortable Orientation / Consciousness: awake, oriented to person, oriented to place and oriented to time HEENT normocephalic and moist oral mucous membranes Eyes PERRL, EOMs intact bilaterally and conjunctivae normal Neck no lymphadenopathy Resp normal respiratory effort and clear to auscultation bilaterally Cardio regular rate, regular rhythm and no murmurs Peripheral Pulses: pulses 2+ throughout GI normal to inspection, nondistended, normoactive bowel sounds, non-tender and non-distended Extremity normal to inspection Skin no rashes or lesions noted Skin Narrative: Scrotal edema and erythema Lesions: no lesions Rashes: no rashes Trauma: no lacerations or abrasions Neuro CN's II-XII intact bilaterally, no focal motor deficits, no sensory deficits noted and deep tendon reflexes 2+ bilaterally Psych mental status grossly normal and affect normal Assessment & Plan Assessment/Plan (1) Acute epididymitis: PLAN: Plan 1.? Acute right-sided epididymitis with hydrocele, recent diagnosis UTI-failed outpatient treatment with Cipro.? Prior urine culture 09/12/2021 E. coli, ESBL.? Transition to IV meropenem.? Supportive management for epididymitis/hydrocele.? Urology consulted. 2. CAD with history of recent PCI-continue aspirin, statin, Plavix.? Metoprolol, lisinopril on hold due to borderline low blood pressure. 3. Chronic hypoxic respiratory failure secondary to chronic COPD and chronic heart failure with reduced ejection fraction-recently discharged on 2 L supplemental oxygen.? Continue oxygen to maintain O2 at or above 90%. 4. Chronic heart failure with reduced ejection fraction/ischemic cardiomyopathy- EF 25%.? AICD in place.? Continue medical management. 5. Chronic COPD-as needed albuterol aerosols. 6. Chronic kidney disease stage IIIa- at baseline. 7. PAD-history of fem-tib bypass.? Continue aspirin, Plavix, statin. 8. Paroxysmal atrial fibrillation-on Coumadin, metoprolol. 9. History of CVA-continue aspirin, Plavix, statin. 10. Type 2 diabetes [id number] with sliding scale insulin. 11. Hypertension-resume home BP regimen when blood pressure improved. 12. Hyperlipidemia-continue statin. 13. GERD-continue PPI. 14. Tobacco dependence-encouraged cessation. 15. LETTY-on BiPAP nightly. DVT prophylaxis-Coumadin This patient was seen by SOY Ramirez under the supervision of Dr. Cleveland. Time spent examining patient, reviewing data and subsequent management of care: 14 minutes Documented by User: Dr. Colten Cleveland MD 09/16/21 14:54 Objective Data Lab / Micro Data Result Diagrams: 09/16/21 06:14 09/16/21 06:14 Assessment & Plan Assessment/Plan (1) Acute epididymitis: Charges/Coding Addendum Addendum: Dr. Cleveland I personally examined the patient and reviewed the chart. I agree with the above.? 61-year-old male who was recently admitted to the hospital with a non- STEMI with stent placement.? He presents back with a UTI and a right-sided epididymitis with hydrocele on ultrasound.? Continue to wait for urine culture and continue with IV antibiotics.? We will make adjustments with pain medications as he is continuing to have swelling.? If this gets worse or is very slow to improve we will consult urology for evaluation.? Clinical time spent in all aspects of patient care: 20 minutes 09/16/2021: Says he feels a little better today but not by much, still has significant scrotal pain. Urine culture came back with a multidrug-resistant E. coli that is ESBL positive therefore we will transition him to Invanz. Urology has been consulted. Invanz can be given IM so prior to discharge would discuss insurance with case management to see whether or not we should transition to IM versus IV Invanz. Clinical time spent in all aspects of patient care: 18 minutes Visit Charges Inpatient E&M: 28734 Subs Hosp L2
[2021-09-16] MEDS: oxyCODONE 5 MG Tablet 10 MG PO (15:09)
[2021-09-16 17:35] LABS: Bedside Glucose 124 mg/dL (74-106)
[2021-09-16] MEDS: guaiFENesin 10 ML UDC (200MG/10ML) PO ×2 (18:03→22:08)
[2021-09-16] MEDS: Amitriptyline 25 MG Tablet PO (22:09)
[2021-09-16] MEDS: Atorvastatin Calcium 80 MG Tablet PO (22:10)
[2021-09-16] MEDS: Albuterol 2.5 MG/3 ML VIAL.NEB. INHALATION (22:32)
[2021-09-16 22:40] LABS: Bedside Glucose 149 mg/dL (74-106)
[2021-09-17] VITALS (15 sets, daily range): BP systolic 105–139; BP diastolic 59–72; PULSE 91–114; RESP 16–20; TEMP 36.6–36.8; O2SAT 89–97
[2021-09-17] MEDS: fentaNYL 100 MCG/2 ML Ampul 50 MCG IV ×8 (00:15→19:28)
[2021-09-17] MEDS: 0.9% Saline Lock 10 ML Syringe IV ×2 (03:08→19:29)
[2021-09-17] MEDS: 0.9% Normal Saline 1,000 ML 75 ML IV ×2 (05:44→17:34)
[2021-09-17 06:55] LABS: Bedside Glucose 121 mg/dL (74-106)
[2021-09-17] MEDS: Albuterol 2.5 MG/3 ML VIAL.NEB. INHALATION ×2 (08:19→16:15)
[2021-09-17] MEDS: Gabapentin 600 MG Tablet PO ×4 (08:46→22:39)
[2021-09-17] MEDS: Aspirin 81 MG TAB.CHEW PO (08:46)
[2021-09-17] MEDS: Docusate Sodium 100 MG Capsule PO (08:46)
[2021-09-17] MEDS: Pantoprazole Sodium 40 MG Tablet PO ×2 (08:46→22:39)
[2021-09-17] MEDS: Magnesium Chloride 64 MG Delay Rel.Tablet 128 MG PO (08:46)
[2021-09-17] MEDS: Clopidogrel Bisulfate 75 MG Tablet PO (08:46)
[2021-09-17] MEDS: Potassium Chloride Oral Tablet 20 MEQ PO (08:46)
[2021-09-17] MEDS: guaiFENesin 10 ML UDC (200MG/10ML) PO ×2 (08:48→14:10)
--- NOTE | 2021-09-17 09:52 | CON.PCM.UR_ITS ---
Assessment & Plan Assessment/Plan (1) Acute epididymitis: PLAN: Continue with broad-spectrum antibiotics for epididymal orchitis he is co mplaining is not having of pain control we will talk to the hospitalist he would also can do to help with pain control continue with elevation of the scrotum icing it and antibiotics currently on seen abscess that required surgical drainage but that certainly could form we will continue to monitor the patient with you on a daily basis and I told the patient this could take some time to heal as a very serious infection and we will continue to monitor with you call me with questions. (2) History of cardiomyopathy: (3) History of atrial fibrillation: (4) Urinary tract infection: HPI Consult Data Date of Consult: 09/17/21 HPI Narrative Reason for Consultation: Epididymal orchitis HPI Narrative: SALAZAR HOLT, is a 61 M who presents with a fairly severe epididymoorchitis infection the right side of the testicle he had an ultrasound that demonstrated epididymal orchitis inflammation swollen epididymis and a reactive hydrocele on exam he is got a firm swollen testicle hydrocele and erythema and redness in the scrotum no signs that it spread anywhere he is icing and elevating it I do not appreciate any abscess on exam and on CT scan and ultrasound imaging there is no signs of an abscess he does has a very severe right epididymal orchitis infection. [facility] Medical History Abdominal aortic aneurysm (AAA) Abnormal PFT Anxiety Atherosclerosis of coronary artery bypass graft of [place] heart with angina pectoris Blood in stool Chronic HFrEF (heart failure with reduced ejection fraction) COPD (chronic obstructive pulmonary disease) Depression Depression with anxiety Descending aortic aneurysm Diverticulosis Esophageal stricture Essential (primary) hypertension GERD (gastroesophageal reflux disease) Hemangioma History of CVA (cerebrovascular accident) (02/07/21) History of non-ST elevation myocardial infarction (NSTEMI) (02/07/21) HLD (hyperlipidemia) Hypersomnia Hypomagnesemia syndrome ICD (implantable cardioverter-defibrillator) discharge (09/08/21) Ischemic cardiomyopathy Left lower lobe pulmonary nodule Neuropathic pain Nicotine dependence LETTY (obstructive sleep apnea) Osteoporosis PAF (paroxysmal atrial fibrillation) Peripheral vascular occlusive disease Rheumatoid arthritis Right bundle branch block (RBBB) Right ventricular systolic dysfunction Smoking greater than 40 pack years Stroke Testicular pain Thoracic aortic aneurysm (TAA) TIA (transient ischemic attack) Tinnitus Ventricular fibrillation (09/08/21) Home Medications magnesium oxide 400 mg PO DAILY supplement 11/07/18 [History Last Taken 04/20/20] pantoprazole 40 mg tablet,delayed release 40 mg PO BID stomach 11/15/18 [History Last Taken 05/20/20] amitriptyline 25 mg tablet 25 mg PO QHS Depression 08/17/19 [History Last Taken 04/20/20] alendronate 70 mg tablet 70 mg PO QWEEK osteoporosis 03/15/20 [History Last Taken 04/15/20] gabapentin 600 mg tablet 600 mg PO 4X/DAY nerve pain 03/15/20 [History Last Taken 05/20/20] furosemide 40 mg tablet 40 mg PO DAILY water pill 09/13/20 [History Last Taken Unknown] docusate sodium 50 mg capsule 50 mg PO DAILY 10/21/20 [History Last Taken Unknown] potassium chloride 20 mEq tablet,extended release 20 meq PO DAILY 11/11/20 [History Last Taken Unknown] clopidogrel 75 mg tablet 75 mg PO DAILY anti platelet #90 tabs 11/21/20 [Rx Last Taken Unknown] metoprolol succinate 50 mg tablet,extended release 24 hr 50 mg PO BID BP #180 tabs 03/06/21 [Rx Last Taken Unknown] isosorbide mononitrate 60 mg tablet,extended release 24 hr 60 mg PO BID #180 tabs 03/19/21 [Rx Last Taken Unknown] nitroglycerin 0.4 mg sublingual tablet 0.4 mg sublingual Q5M PRN Pain #100 tabs 03/19/21 [Rx Last Taken Unknown] warfarin 4 mg tablet 4 mg PO DAILY 06/04/21 [History Last Taken Unknown] amlodipine 2.5 mg tablet 2.5 mg PO DAILY #30 tabs 06/17/21 [Rx Last Taken Unknown] ergocalciferol (vitamin D2) 1,250 mcg (50,000 unit) capsule 50,000 unit PO QWEEK #24 caps 06/17/21 [Rx Last Taken Unknown] lisinopril 5 mg tablet 5 mg PO DAILY 06/30/21 [History Last Taken Unknown] ipratropium 0.5 mg-albuterol 3 mg (2.5 mg base)/3 mL nebulization soln 3 ml inhalation Q4H PRN shortness of breath or wheezing #180 mL 08/13/21 [Rx Last Taken Unknown] empagliflozin 10 mg tablet (Jardiance) 10 mg PO DAILY 09/06/21 [History Last Taken Unknown] rosuvastatin 40 mg tablet 1 tab PO DAILY 09/06/21 [History Last Taken Unknown] albuterol sulfate 0.63 mg/3 mL solution for nebulization 0.63 mg inhalation Q4H PRN Shortness Of Breath 09/08/21 [History Last Taken Unknown] fluticasone fur. 100 mcg-umeclid 62.5 mcg-vilant 25 mcg inhalat.powder (Trelegy Ellipta) 1 inh inhalation DAILY Check with primary doctor 09/08/21 [History Last Taken Unknown] aspirin 81 mg chewable tablet 81 mg PO DAILY@0800 #90 tabs 09/09/21 [Rx Last Taken Unknown] ciprofloxacin HCl 500 mg tablet (Cipro) 500 mg PO BID 10 days #20 tabs 09/12/21 [Rx Last Taken Unknown] Allergy/AdvReac Type Severity Reaction Status Date / Time oxycodone [From Percocet] Allergy Severe dry heaves Verified 09/14/21 20:33 latex Allergy Unknown unknown Verified 09/14/21 20:33 acetaminophen Allergy Anaphylaxis Verified 09/14/21 20:33 [From Darvocet-N] diphenhydramine Allergy Rash Verified 09/14/21 20:33 [From Benadryl] NSAIDS (Non-Steroidal Allergy Anaphylaxis Verified 09/14/21 20:33 Anti-Inflamma Penicillins Allergy Anaphylaxis Verified 09/14/21 20:33 propoxyphene Allergy Anaphylaxis Verified 09/14/21 20:33 [From Darvocet-N] hydrocodone [From Vicodin] AdvReac Mild Nausea/Vom/ Verified 09/14/21 20:33 Diarrhea peppercorn AdvReac NEEDS Uncoded 08/28/21 07:55 FOLLOW-UP Family History Sister CVA (cerebral vascular accident) Heart disease Hypertension High cholesterol Diabetes Cancer lung cancer Father Arthritis Cancer myeloma Mother Arthritis Cancer Brain cancer Surgical History H/O coronary artery bypass surgery (01/28/12) History of angioplasty of peripheral vessel (01/2015) History of coronary angioplasty (08/09/20) History of coronary artery stent placement (09/08/21) History of implantable cardiac defibrillator (ICD) (09/15/17) History of left heart catheterization (05/20/20) History of left inguinal hernia repair S/P femoral-tibial bypass (12/28/18) Sebaceous cyst Social History household members: significant other Smoking Status: Current every day smoker tobacco type: cigarettes Tobacco: How many years used: 40 quit status: considering quitting alcohol intake: never substance use type: does not use caffeine: Yes (cola) Type: carbonated beverages Number of servings: 4 ROS Constitutional Constitutional: Denies chills, fever(s) or malaise Eyes Eyes: Denies blurry vision or change in vision ENT HEENT: Reports none Cardiovascular Cardiovascular: Denies chest pain or palpitations Respiratory/Chest Respiratory/Chest: Denies cough or shortness of breath with exertion Gastrointestinal Gastrointestinal: Denies abdominal pain, constipation or diarrhea Musculoskeletal Musculoskeletal: Denies back pain, joint stiffness or joint swelling Integumentary Integumentary: Denies dry skin, jaundice, lesions or rash Neurologic Neurologic: Denies confusion, syncope or weakness Psychiatric Psychiatric: Reports none; Denies anxiety or depression Endocrine Endocrinology: Denies excessive sweating, fatigue or flushing Hematologic/Lymphatic Hematologic/Lymphatic: Denies anemia, easy bleeding or easy bruising Physical Exam Narrative On exam the right testicle swollen probably 3 times size normal area skin is red and erythematous very tender on exam no palpable abscess no drainage. Medical Records Data Attestation: I reviewed the patient's medical records Lab / Micro Data Attestation: I reviewed the patient's lab results. Result Diagrams: 09/16/21 06:14 09/16/21 06:14 Labs: Laboratory Results - last 24 hr 09/16/21 11:55: POC Glucose 144 H 09/16/21 17:10: POC Glucose 124 H 09/16/21 22:06: POC Glucose 149 H 09/17/21 06:32: POC Glucose [address] scan and ultrasound reviewed
[2021-09-17] MEDS: Insulin Lispro 100 UNIT/ML INSULN.PEN SC (11:06)
[2021-09-17 11:30] LABS: Bedside Glucose 174 mg/dL (74-106)
--- NOTE | 2021-09-17 12:04 | PCM.PN.HOSP ---
Documented by User: Pascale Martines NP, [employer] 09/17/21 12:12 Subjective Subjective Patient seen and examined. Reports ongoing scrotal pain. Denies fever, chills. Denies other urinary symptoms Objective Data Objective Data Vital Signs: Vital Signs Temp Pulse Resp BP Pulse Ox O2 Del Method O2 Flow Rate 98.1 F 102 H 16 119/65 95 Nasal Cannula 2 09/17/21 11:04 09/17/21 11:04 09/17/21 11:04 09/17/21 11:04 09/17/21 11:04 09/17/21 11:04 09/17/21 11:04 Oxygen Flow Rate (L/min) 2 Oxygen Delivery Method Nasal Cannula Weight: 190 lb 4.143 oz Body Mass Index (BMI) 29.7 Intake & Output: Intake and Output for Last 24 Hours 09/15/21 09/16/21 09/17/21 23:59 23:59 23:59 Intake Total 1013.75 / 1333.75 3547.15 / 3847.15 2292.50 / 2292.50 Output Total 850 / 1500 2350 / 2630 830 / 830 Balance 163.75 / -166.25 1197.15 / 1217.15 1462.50 / 1462.50 Lab / Micro Data Result Diagrams: 09/16/21 06:14 09/16/21 06:14 Labs: Laboratory Results - last 24 hr 09/16/21 11:55: POC Glucose 144 H 09/16/21 17:10: POC Glucose 124 H 09/16/21 22:06: POC Glucose 149 H 09/17/21 06:32: POC Glucose 121 H 09/17/21 11:00: POC Glucose 174 H Physical Exam Const alert and oriented x3 HEENT normocephalic and moist oral mucous membranes Eyes PERRL, EOMs intact bilaterally and conjunctivae normal Neck no lymphadenopathy Resp normal respiratory effort and clear to auscultation bilaterally Cardio regular rate, regular rhythm and no murmurs Peripheral Pulses: pulses 2+ throughout GI normal to inspection, nondistended, normoactive bowel sounds, non-tender and non-distended Extremity normal to inspection Skin no rashes or lesions noted Skin Narrative: Scrotal edema and erythema Lesions: no lesions Rashes: no rashes Trauma: no lacerations or abrasions Neuro CN's II-XII intact bilaterally, no focal motor deficits, no sensory deficits noted and deep tendon reflexes 2+ bilaterally Psych mental status grossly normal and affect normal Assessment & Plan Assessment/Plan (1) Acute epididymitis: PLAN: Plan 1.? Acute right-sided epididymoorchitis, recent diagnosis UTI-failed outpatient treatment with Cipro.? Prior urine culture 09/12/2021 E. coli, ESBL.? Transition to IV ertapenem.? Supportive management for epididymitis/hydrocele.? Urology consulted. 2. CAD with history of recent PCI-continue aspirin, statin, Plavix.? Metoprolol, lisinopril on hold due to borderline low blood pressure. 3. Chronic hypoxic respiratory failure secondary to chronic COPD and chronic heart failure with reduced ejection fraction-recently discharged on 2 L supplemental oxygen.? Continue oxygen to maintain O2 at or above 90%. 4. Chronic heart failure with reduced ejection fraction/ischemic cardiomyopathy-EF 25%.? AICD in place.? Continue medical management. 5. Chronic COPD-as needed albuterol aerosols. 6. Chronic kidney disease stage IIIa- at baseline. 7. PAD-history of fem-tib bypass.? Continue aspirin, Plavix, statin. 8. Paroxysmal atrial fibrillation-on Coumadin, metoprolol. 9. History of CVA-continue aspirin, Plavix, statin. 10. Type 2 diabetes [id number] with sliding scale insulin. 11. Hypertension-resume home BP regimen when blood pressure improved. 12. Hyperlipidemia-continue statin. 13. GERD-continue PPI. 14. Tobacco dependence-encouraged cessation. 15. LETTY-on BiPAP nightly. DVT prophylaxis-Coumadin This patient was seen by SOY Ramirez under the supervision of Dr. Luna. Time spent examining patient, reviewing data and subsequent management of care: 12 minutes Documented by User: Dr. Miguel Luna DO 09/17/21 20:44 Objective Data Lab / Micro Data Result Diagrams: 09/16/21 06:14 09/16/21 06:14 Assessment & Plan Assessment/Plan (1) Acute epididymitis: Charges/Coding Addendum Addendum: Patient was seen and examined independently of Pascale Martines, I talked with infectious diseases today as well as urology. I have decided to place the patient on programmed oral pain medication for his pain. Infectious diseases states that the patient's antibiotic coverage is appropriate at this time. On examination he appeared in good health and spirits. Vital signs as documented. Skin warm and dry and without overt rashes. Neck without JVD, neck was supple, trachea midline, thyroid was normal. Lungs clear bilaterally, normal air movement was noted. Heart exam notable for regular rhythm, normal sounds and absence of murmurs, rubs or gallops. Abdomen unremarkable and without evidence of organomegaly, masses, or abdominal aortic enlargement. Bowel sounds are present, abdomen is not distended. Extremities nonedematous, no cyanosis was noted, no clubbing was noted. Neuro: Cranial nerves II through XII are grossly intact, no focal motor deficits were noted, sensation to light touch and pinprick intact, motor exam 5/5 throughout. Psych: Patient is alert and oriented x3, he does not appear anxious or depressed, he does not appear agitated. Impression: #1 acute epididymitis-continue present treatment, patient was placed on MS Contin for pain today, he will continue on fentanyl IV as needed #2 atherosclerotic heart disease-continue aspirin, and a statin. Patient's metoprolol and lisinopril were on hold due to his low blood pressure, I have decided to place the patient back on metoprolol starting tomorrow morning #3 chronic hypoxic respiratory failure secondary to COPD and chronic systolic congestive heart failure-continue supplemental oxygen to maintain a pulse ox above 90% #4 chronic systolic congestive heart failure-patient has an ICD, continue present medical management #5 chronic obstructive pulmonary disease-continue as needed albuterol aerosols #6 chronic kidney disease stage IIIa -complicates care, medical management, and recovery, prognosis #7 paroxysmal atrial fibrillation-patient is on Coumadin, his metoprolol will be restarted tomorrow morning I have reviewed Pascale Martines's progress note including her medical assessment and plan of care and with the above additions endorse it. Total clinical time spent by myself addressing the patient's medical issues, reviewing the data, and collaborating with patient's care team: 25 minutes Visit Charges Inpatient E&M: 60543 Subs Hosp L3
[2021-09-17] MEDS: morphine SR 15 MG Tablet 30 MG PO ×2 (12:08→22:39)
[2021-09-17] MEDS: Ondansetron 4 MG/2 ML Vial IV (14:10)
--- NOTE | 2021-09-17 16:10 | PCM.CONS.GEN ---
Assessment & Plan Assessment/Plan (1) Acute epididymitis: PLAN: Ucx with esbl ecoli. Seen by urology. Agree with ertapenem. Gonorrhea/chlamydia neg. Will follow, thank you, d/w primary team HPI Consult Data Date of Consult: 09/17/21 HPI Narrative Reason for Consultation: epididymitis HPI Narrative: SALAZAR HOLT, is a 61 M with h/o copd, CKD, CHF with ICD, DM, recent admit for NSTEMI requiring heart cath and stent placement. Had montez during that admit. Over past week, c/o progressive scrotal pain, redness, swelling, and induration. Some fever/chills. Put on cipro without improvement. Pain is excruciating. Came to ED, admitted on ceftriaxone, now changed to ertapenem given ucx with esbl ecoli. Not feeling any better. Full ROS performed and neg except as noted above. Reports covid vaccine and booster. [facility] Medical History Abdominal aortic aneurysm (AAA) Abnormal PFT Anxiety Atherosclerosis of coronary artery bypass graft of [place] heart with angina pectoris Blood in stool Chronic HFrEF (heart failure with reduced ejection fraction) COPD (chronic obstructive pulmonary disease) Depression Depression with anxiety Descending aortic aneurysm Diverticulosis Esophageal stricture Essential (primary) hypertension GERD (gastroesophageal reflux disease) Hemangioma History of CVA (cerebrovascular accident) (02/07/21) History of non-ST elevation myocardial infarction (NSTEMI) (02/07/21) HLD (hyperlipidemia) Hypersomnia Hypomagnesemia syndrome ICD (implantable cardioverter-defibrillator) discharge (09/08/21) Ischemic cardiomyopathy Left lower lobe pulmonary nodule Neuropathic pain Nicotine dependence LETTY (obstructive sleep apnea) Osteoporosis PAF (paroxysmal atrial fibrillation) Peripheral vascular occlusive disease Rheumatoid arthritis Right bundle branch block (RBBB) Right ventricular systolic dysfunction Smoking greater than 40 pack years Stroke Testicular pain Thoracic aortic aneurysm (TAA) TIA (transient ischemic attack) Tinnitus Ventricular fibrillation (09/08/21) Home Medications magnesium oxide 400 mg PO DAILY supplement 11/07/18 [History Last Taken 04/20/20] pantoprazole 40 mg tablet,delayed release 40 mg PO BID stomach 11/15/18 [History Last Taken 05/20/20] amitriptyline 25 mg tablet 25 mg PO QHS Depression 08/17/19 [History Last Taken 04/20/20] alendronate 70 mg tablet 70 mg PO QWEEK osteoporosis 03/15/20 [History Last Taken 04/15/20] gabapentin 600 mg tablet 600 mg PO 4X/DAY nerve pain 03/15/20 [History Last Taken 05/20/20] furosemide 40 mg tablet 40 mg PO DAILY water pill 09/13/20 [History Last Taken Unknown] docusate sodium 50 mg capsule 50 mg PO DAILY 10/21/20 [History Last Taken Unknown] potassium chloride 20 mEq tablet,extended release 20 meq PO DAILY 11/11/20 [History Last Taken Unknown] clopidogrel 75 mg tablet 75 mg PO DAILY anti platelet #90 tabs 11/21/20 [Rx Last Taken Unknown] metoprolol succinate 50 mg tablet,extended release 24 hr 50 mg PO BID BP #180 tabs 03/06/21 [Rx Last Taken Unknown] isosorbide mononitrate 60 mg tablet,extended release 24 hr 60 mg PO BID #180 tabs 03/19/21 [Rx Last Taken Unknown] nitroglycerin 0.4 mg sublingual tablet 0.4 mg sublingual Q5M PRN Pain #100 tabs 03/19/21 [Rx Last Taken Unknown] warfarin 4 mg tablet 4 mg PO DAILY 06/04/21 [History Last Taken Unknown] amlodipine 2.5 mg tablet 2.5 mg PO DAILY #30 tabs 06/17/21 [Rx Last Taken Unknown] ergocalciferol (vitamin D2) 1,250 mcg (50,000 unit) capsule 50,000 unit PO QWEEK #24 caps 06/17/21 [Rx Last Taken Unknown] lisinopril 5 mg tablet 5 mg PO DAILY 06/30/21 [History Last Taken Unknown] ipratropium 0.5 mg-albuterol 3 mg (2.5 mg base)/3 mL nebulization soln 3 ml inhalation Q4H PRN shortness of breath or wheezing #180 mL 08/13/21 [Rx Last Taken Unknown] empagliflozin 10 mg tablet (Jardiance) 10 mg PO DAILY 09/06/21 [History Last Taken Unknown] rosuvastatin 40 mg tablet 1 tab PO DAILY 09/06/21 [History Last Taken Unknown] albuterol sulfate 0.63 mg/3 mL solution for nebulization 0.63 mg inhalation Q4H PRN Shortness Of Breath 09/08/21 [History Last Taken Unknown] fluticasone fur. 100 mcg-umeclid 62.5 mcg-vilant 25 mcg inhalat.powder (Trelegy Ellipta) 1 inh inhalation DAILY Check with primary doctor 09/08/21 [History Last Taken Unknown] aspirin 81 mg chewable tablet 81 mg PO DAILY@0800 #90 tabs 09/09/21 [Rx Last Taken Unknown] ciprofloxacin HCl 500 mg tablet (Cipro) 500 mg PO BID 10 days #20 tabs 09/12/21 [Rx Last Taken Unknown] Allergy/AdvReac Type Severity Reaction Status Date / Time oxycodone [From Percocet] Allergy Severe dry heaves Verified 09/14/21 20:33 latex Allergy Unknown unknown Verified 09/14/21 20:33 acetaminophen Allergy Anaphylaxis Verified 09/14/21 20:33 [From Darvocet-N] diphenhydramine Allergy Rash Verified 09/14/21 20:33 [From Benadryl] NSAIDS (Non-Steroidal Allergy Anaphylaxis Verified 09/14/21 20:33 Anti-Inflamma Penicillins Allergy Anaphylaxis Verified 09/14/21 20:33 propoxyphene Allergy Anaphylaxis Verified 09/14/21 20:33 [From Darvocet-N] hydrocodone [From Vicodin] AdvReac Mild Nausea/Vom/ Verified 09/14/21 20:33 Diarrhea peppercorn AdvReac NEEDS Uncoded 08/28/21 07:55 FOLLOW-UP Family History Sister CVA (cerebral vascular accident) Heart disease Hypertension High cholesterol Diabetes Cancer lung cancer Father Arthritis Cancer myeloma Mother Arthritis Cancer Brain cancer Surgical History H/O coronary artery bypass surgery (01/28/12) History of angioplasty of peripheral vessel (01/2015) History of coronary angioplasty (08/09/20) History of coronary artery stent placement (09/08/21) History of implantable cardiac defibrillator (ICD) (09/15/17) History of left heart catheterization (05/20/20) History of left inguinal hernia repair S/P femoral-tibial bypass (12/28/18) Sebaceous cyst Social History household members: significant other Smoking Status: Current every day smoker tobacco type: cigarettes Tobacco: How many years used: 40 quit status: considering quitting alcohol intake: never substance use type: does not use caffeine: Yes (cola) Type: carbonated beverages Number of servings: 4 Physical Exam Const alert and oriented x3 Constitutional Narrative: uncomfortable General Appearance: cooperative HEENT normocephalic and head/scalp atraumatic Eyes PERRL and EOMs intact bilaterally Neck supple and No nodes Resp normal air movement and clear to auscultation bilaterally Cardio regular rate and regular rhythm GI soft to palpation, non-tender and non-distended Extremity General Extremity: Negative for edema Skin Skin Narrative: scrotal pain, swelling, redness, induration Neuro CN's II-XII intact bilaterally Lab / Micro Data Attestation: I reviewed the patient's lab results. Result Diagrams: 09/16/21 06:14 09/16/21 06:14 Labs: Laboratory Results - last 24 hr 09/16/21 17:10: POC Glucose 124 H 09/16/21 22:06: POC Glucose 149 H 09/17/21 06:32: POC Glucose 121 H 09/17/21 11:00: POC Glucose 174 H
[2021-09-17 17:05] LABS: Bedside Glucose 135 mg/dL (74-106)
[2021-09-17] MEDS: Amitriptyline 25 MG Tablet PO (22:39)
[2021-09-17] MEDS: Atorvastatin Calcium 80 MG Tablet PO (22:39)
[2021-09-17 23:01] LABS: Bedside Glucose 144 mg/dL (74-106)
[2021-09-18] VITALS (18 sets, daily range): BP systolic 107–143; BP diastolic 62–76; PULSE 85–106; RESP 12–18; TEMP 36.6–37.1; O2SAT 95–100
[2021-09-18] MEDS: 0.9% Saline Lock 10 ML Syringe IV ×2 (00:57→04:41)
[2021-09-18] MEDS: fentaNYL 100 MCG/2 ML Ampul 50 MCG IV ×3 (00:57→07:59)
[2021-09-18] MEDS: 0.9% Normal Saline 1,000 ML 75 ML IV ×2 (06:27→18:52)
[2021-09-18 06:43] LABS: Absolute Lymphocyte Count 1.63 X10^3/uL (0.83-4.51); Absolute Neutrophil Count 4.8 X10^3/uL (2.0-7.7); Basophil# 0.06 X10^3/uL; Basophil% 0.8 % (0-1); Eosinophil# 0.55 X10^3/uL; Eosinophils% 7.2 % (0-5); Hematocrit 40.7 % (40-54); Hemoglobin 13.4 g/dL (13.0-16.5); Lymphocyte # 1.63 X10^3/ul (0.83-4.51); Lymphocyte % 21.3 % (19-41); Mean Corp Hgb Conc 32.9 g/dL (32-36); Mean Corpuscular Hgb 30.2 pg (27.0-32.0); Mean Corpuscular Volume 91.7 fL (80-94); Mean Platelet Vol. 9.4 fl (6.2-12.0); Monocyte% 6.5 % (0-10); NRBC Flagged by Analyzer 0 % (0-5); Neutrophil # 4.75 X10^3/uL (2.7-7.7); Platelet Count 250 K/mm3 (150-450); RBC Distribution Width CV 16.1 % (11.6-14.6); RBC Distribution Width SD 54.6 fl (35.1-43.9); Red Blood Count 4.44 M/mm3 (4.6-6.2); White Blood Count 7.7 K/mm3 (4.4-11.0)
[2021-09-18 06:55] LABS: Bedside Glucose 118 mg/dL (74-106)
[2021-09-18 07:06] LABS: Anion Gap 3 (5-15); BUN 8 mg/dL (7-18); BUN/Creat Ratio 7.9 RATIO (10-20); Calcium,Total 8.5 mg/dL (8.5-10.1); Chloride 106 mmol/L (98-107); Creatinine, Serum 1.01 mg/dL (0.70-1.30); EST Glomerular Filtration Rate 80 mL/min (>60); Est Glom Filt Rate - Afr Amer 97 mL/min (>60); Estimated Creatinine Clearance 73.63 ml/min; Glucose 117 mg/dL (74-106); Potassium 4.3 mmol/L (3.5-5.1); Sodium Level 137 mmol/L (136-145)
--- NOTE | 2021-09-18 07:47 | CON.PCM_ITS ---
Consult Date of Consult: 09/18/21 Reason for Consult Follow-up to original consultation, 61-year-old male who I saw yesterday for cellulitis of the scrotum reactive hydrocele pain and swelling consistent with right epididymal orchitis. He thinks it is gotten bigger but on exam looks the same to me actually slightly less red and looks a little bit smaller. polymerization oven tender. Explained to the patient that it can take about 6 weeks for this to go down currently I do not see any signs of an abscess that needs to be surgically drained. We could always aspirate the hydrocele but it may just come back. For now continue with IV antibiotics infectious diseases involved once he is pain is under good control he probably can go home with pain control and continued antibiotics and he can follow-up with me as an outpatient on discharge for follow-up regarding the scrotal infection. But as of now I do not see an indication to do any surgical intervention as this should heal with antibiotics unless he develops an abscess we will continue to follow with you.
[2021-09-18] MEDS: Potassium Chloride Oral Tablet 20 MEQ PO (08:00)
[2021-09-18] MEDS: Gabapentin 600 MG Tablet PO ×4 (08:00→21:30)
[2021-09-18] MEDS: Clopidogrel Bisulfate 75 MG Tablet PO (08:00)
[2021-09-18] MEDS: Aspirin 81 MG TAB.CHEW PO (08:00)
[2021-09-18] MEDS: Pantoprazole Sodium 40 MG Tablet PO ×2 (08:00→21:29)
[2021-09-18] MEDS: Magnesium Chloride 64 MG Delay Rel.Tablet 128 MG PO (08:00)
[2021-09-18] MEDS: Docusate Sodium 100 MG Capsule PO (08:00)
[2021-09-18] MEDS: morphine SR 15 MG Tablet 30 MG PO ×3 (10:19→22:37)
--- NOTE | 2021-09-18 10:20 | PCM.PN.ID ---
Physical Exam Narrative Still with significant pain, no fever, mild nausea. Const alert and no apparent distress Resp normal air movement and clear to auscultation bilaterally Cardio regular rate and regular rhythm GI soft to palpation, non-tender and non-distended Skin Skin Narrative: scrotum slightly less red/indurated ID ID: Route of nutrition/ use of supplements: [] Nutritional Intake: [] IV Site: [] Parra Catheter: [] Assessment & Plan Assessment/Plan (1) Acute epididymitis: PLAN: Ucx with esbl ecoli. Seen by urology. Cont with ertapenem. Gonorrhea/chlamydia neg. Plan at this point will be 2 weeks IM erta at discharge. Will follow
--- NOTE | 2021-09-18 11:10 | CASEMGMT ---
Per Dr. Calhoun's note, pt to be sent home on Ertapenem 1 gram IM q 24 hours. This RN CM to room to discuss with pt and he is agreeable to coming to [facility] OP infusion to get shots daily. Call to Erin in OP infusion, [phone], and she is updated on pt. Once script obtained/signed, this RN CM to fax to OP infusion and get pt set up for OP injection for 14 days. Erin states that they work only M-F so depending on discharge date, pt may have to come in as medical OP to floor on Sat/Sun to get injection. CM to follow. SStaten FAVIOLA CM
[2021-09-18] MEDS: fentaNYL 100 MCG/2 ML Ampul 75 MCG IV ×5 (11:32→23:40)
[2021-09-18 12:01] LABS: Bedside Glucose 138 mg/dL (74-106)
--- NOTE | 2021-09-18 12:27 | PCM.PN.HOSP ---
Documented by User: SOY Roy 09/18/21 12:32 Subjective Subjective Patient seen and examined. Patient continues to complain of significant pain to his scrotum and groin. Objective Data Objective Data Vital Signs: Vital Signs Temp Pulse Resp BP Pulse Ox O2 Del Method O2 Flow Rate 98.1 F 96 16 111/76 99 Nasal Cannula 2 09/18/21 11:30 09/18/21 11:30 09/18/21 11:30 09/18/21 11:30 09/18/21 11:30 09/18/21 11:30 09/18/21 11:30 Oxygen Flow Rate (L/min) 2 Oxygen Delivery Method Nasal Cannula Weight: 189 lb 2.506 oz Body Mass Index (BMI) 29.7 Intake & Output: Intake and Output for Last 24 Hours 09/16/21 09/17/21 09/18/21 23:59 23:59 23:59 Intake Total 3547.15 / 3847.15 3826.25 / 4546.25 2396.25 / 2396.25 Output Total 2350 / 2630 1930 / 2760 1330 / 1330 Balance 1197.15 / 1217.15 1896.25 / 1786.25 1066.25 / 1066.25 Lab / Micro Data Result Diagrams: 09/18/21 06:36 09/18/21 06:36 Labs: Laboratory Results - last 24 hr 09/17/21 16:29: POC Glucose 135 H 09/17/21 22:37: POC Glucose 144 H 09/18/21 06:27: POC Glucose 118 H 09/18/21 06:36: WBC 7.7, RBC 4.44 L, Hgb 13.4, Hct 40.7, MCV 91.7 D, MCH 30.2, MCHC 32.9, RDW Std Deviation 54.6 H, RDW Coeff of Jack 16.1 H, Plt Count 250, MPV 9.4, Immature Gran % (Auto) 2.200 H, Neut % (Auto) 62.0, Lymph % (Auto) 21.3, Prentiss % (Auto) 6.5, Eos % (Auto) 7.2 H, Baso % (Auto) 0.8, Absolute Neuts (auto) 4.8, Absolute Lymphs (auto) 1.63, Nucleated RBC % 0 09/18/21 06:36: Sodium 137, Potassium 4.3, Chloride 106, Carbon Dioxide 28.0, Anion Gap 3 L, BUN 8, Creatinine 1.01, Estim Creat Clear Calc 73.63, Est GFR (MDRD) Af Amer 97, Est GFR (MDRD) Non-Af 80, BUN/Creatinine Ratio 7.9 L, Glucose 117 H, Calcium 8.5 09/18/21 11:26: POC Glucose 138 H Physical Exam Const alert and oriented x3 Constitutional Narrative: Appears uncomfortable Orientation / Consciousness: awake HEENT normocephalic and moist oral mucous membranes Eyes conjunctivae normal Neck no lymphadenopathy Resp normal respiratory effort and clear to auscultation bilaterally Cardio regular rate and regular rhythm Peripheral Pulses: pulses 2+ throughout GI normal to inspection, nondistended, normoactive bowel sounds and non-tender Extremity normal to inspection Skin no rashes or lesions noted Skin Narrative: Scrotal edema and erythema Lesions: no lesions Rashes: no rashes Trauma: no lacerations or abrasions Neuro no focal motor deficits and no sensory deficits noted Psych mental status grossly normal and affect normal Assessment & Plan Assessment/Plan (1) Acute epididymitis: PLAN: Plan 1.? Acute right-sided epididymoorchitis, recent diagnosis UTI -failed outpatient treatment with Cipro.? Prior urine culture 09/12/2021 E. coli, ESBL.? -Continue IV ertapenem.? -Supportive management for epididymitis/hydrocele.? -Urology and ID following 2. CAD with history of recent PCI -continue aspirin, statin, Plavix.? -Continue to hold metoprolol, lisinopril for low blood pressure 3. Chronic hypoxic respiratory failure secondary to chronic COPD and chronic heart failure with reduced ejection fraction -recently discharged on 2 L supplemental oxygen.? -Continue oxygen to maintain O2 at or above 90%. 4. Chronic heart failure with reduced ejection fraction/ischemic cardiomyopathy -EF 25%.? -AICD in place.? -Continue medical management. 5. Chronic COPD -as needed albuterol aerosols. 6. Chronic kidney disease stage IIIa -at baseline. 7. PAD -history of fem-tib bypass.? -Continue aspirin, Plavix, statin. 8. Paroxysmal atrial fibrillation -on Coumadin, metoprolol. 9. History of CVA -continue aspirin, Plavix, statin. 10. Type 2 diabetes mellitus -Accu-Cheks with sliding scale insulin. 11. Hypertension -Vital signs per protocol, currently stable -resume home BP regimen when blood pressure improved. 12. Hyperlipidemia -continue statin. 13. GERD -continue PPI. 14. Tobacco dependence -encouraged cessation. 15. LETTY -on BiPAP nightly. DVT prophylaxis-Coumadin This patient was seen by Allie Figueredo, [employer] under the supervision of Dr. Luna. 10 minutes spent in clinical coordination of patient's plan of care. Documented by User: Dr. Miguel Luna, 09/18/21 16:11 Objective Data Lab / Micro Data Result Diagrams: 09/18/21 06:36 09/18/21 06:36 Assessment & Plan Assessment/Plan (1) Acute epididymitis: Charges/Coding Addendum Addendum: Patient was seen and today independently of Bibi Figueredo, he continues to complain of severe scrotal pain this morning, when I saw him this afternoon, patient was resting quietly and had no complaints of pain. I told him that it was a possibility that he might be discharged tomorrow, he will need 14 days of Invanz given IM. On examination he appeared older than his stated age, he did not appear to be in any distress. Vital signs as documented. Skin warm and dry and without overt rashes. Neck without JVD, neck was supple, trachea midline, thyroid was normal. Lungs clear bilaterally, normal air movement was noted. Heart exam notable for regular rhythm, normal sounds and absence of murmurs, rubs or gallops. Abdomen unremarkable and without evidence of organomegaly, masses, or abdominal aortic enlargement.? Bowel sounds are present, abdomen is not distended.? Extremities nonedematous, no cyanosis was noted, no clubbing was noted.? Neuro: Cranial nerves II through XII are grossly intact, no focal motor deficits were noted, sensation to light touch and pinprick intact, motor exam 5/5 throughout.? Psych: Patient is alert and oriented x3, he does not appear anxious or depressed, he does not appear agitated. #1 acute epididymitis-continue present treatment, patient will need to continue on IM Invanz therapy as an outpatient #2 atherosclerotic heart disease-continue aspirin, and a statin. I have decided to restart the patient's metoprolol succinate at a lower dosage due to concerns of low blood pressure. #3 chronic hypoxic respiratory failure secondary to COPD and chronic systolic congestive heart failure-continue supplemental oxygen to maintain a pulse ox above 90%, patient is currently on 2 L/min via nasal cannula #4 chronic systolic congestive heart failure-patient has an ICD, continue present medical management #5 chronic obstructive pulmonary disease-continue as needed albuterol aerosols #6 chronic kidney disease stage IIIa -complicates care, medical management, and recovery, prognosis #7 paroxysmal atrial fibrillation-patient is on Coumadin, his metoprolol will be restarted today I have reviewed Bibi Figueredo's progress note including her medical assessment and plan of care with the above additions endorse it. Total clinical time spent by myself addressing the patient's medical issues, reviewing the data, and collaborating with patient's care team: 25 minutes Visit Charges Inpatient E&M: 56377 Subs Hosp L3
[2021-09-18] MEDS: guaiFENesin 10 ML UDC (200MG/10ML) PO (15:56)
[2021-09-18 16:40] LABS: Bedside Glucose 129 mg/dL (74-106)
[2021-09-18] MEDS: oxyCODONE 5 MG Tablet 10 MG PO (20:16)
[2021-09-18] MEDS: Atorvastatin Calcium 80 MG Tablet PO (21:29)
[2021-09-18] MEDS: Metoprolol(XL)Succ 25 MG Tablet PO (21:30)
[2021-09-18] MEDS: Amitriptyline 25 MG Tablet PO (21:30)
[2021-09-18 21:31] LABS: Bedside Glucose 138 mg/dL (74-106)
[2021-09-19] VITALS (7 sets, daily range): BP systolic 106–120; BP diastolic 62–70; PULSE 77–97; RESP 18; TEMP 36.5–36.6; O2SAT 95–99
[2021-09-19] MEDS: fentaNYL 100 MCG/2 ML Ampul 75 MCG IV ×2 (04:46→06:43)
[2021-09-19] MEDS: morphine SR 15 MG Tablet 30 MG PO ×2 (05:51→13:50)
[2021-09-19 06:34] LABS: Absolute Lymphocyte Count 1.88 X10^3/uL (0.83-4.51); Basophil# 0.09 X10^3/uL; Basophil% 1.1 % (0-1); Eosinophil# 0.64 X10^3/uL; Eosinophils% 7.9 % (0-5); Lymphocyte # 1.88 X10^3/ul (0.83-4.51); Lymphocyte % 23.3 % (19-41); Mean Corpuscular Hgb 29.3 pg (27.0-32.0); Mean Corpuscular Volume 94.6 fL (80-94); Mean Platelet Vol. 9.5 fl (6.2-12.0); Monocyte# 0.37 X10^3/uL; Monocyte% 4.6 % (0-10); NRBC Flagged by Analyzer 0 % (0-5); Neutrophil # 4.97 X10^3/uL (2.7-7.7); Neutrophil % 61.6 % (47-70); Platelet Count 294 K/mm3 (150-450); RBC Distribution Width CV 16.1 % (11.6-14.6); RBC Distribution Width SD 56.1 fl (35.1-43.9); Red Blood Count 4.44 M/mm3 (4.6-6.2); White Blood Count 8.1 K/mm3 (4.4-11.0)
[2021-09-19] MEDS: 0.9% Normal Saline 1,000 ML 75 ML IV (06:37)
[2021-09-19 06:57] LABS: International Normalized Ratio 2.4; Prothrombin Time (Protime)PT. 25.4 SECONDS (11.7-14.9)
[2021-09-19 07:05] LABS: Bedside Glucose 131 mg/dL (74-106)
[2021-09-19 07:11] LABS: ALB/GLOB Ratio 0.6 RATIO (0.9-2.4); AST(SGOT) 16 U/L (15-37); Alanine Aminotransfer ALT/SGPT 23 U/L (16-61); Albumin, Serum 2.5 g/dL (3.2-5.0); Alkaline Phosphatase 74 U/L (45-117); Anion Gap 4 (5-15); BUN 7 mg/dL (7-18); BUN/Creat Ratio 6.4 RATIO (10-20); Calcium,Total 8.5 mg/dL (8.5-10.1); Chloride 101 mmol/L (98-107); Creatinine, Serum 1.09 mg/dL (0.70-1.30); EST Glomerular Filtration Rate 74 mL/min (>60); Est Glom Filt Rate - Afr Amer 89 mL/min (>60); Estimated Creatinine Clearance 68.22 ml/min; Globulin 4.2 g/dL (2.2-4.2); Glucose 124 mg/dL (74-106); Potassium 3.9 mmol/L (3.5-5.1); Protein, Total 6.7 g/dL (6.4-8.2); Sodium Level 135 mmol/L (136-145)
[2021-09-19] MEDS: Gabapentin 600 MG Tablet PO ×2 (08:01→13:50)
[2021-09-19] MEDS: oxyCODONE 5 MG Tablet 10 MG PO (08:01)
[2021-09-19] MEDS: Metoprolol(XL)Succ 25 MG Tablet PO (08:09)
[2021-09-19] MEDS: Pantoprazole Sodium 40 MG Tablet PO (08:09)
[2021-09-19] MEDS: Potassium Chloride Oral Tablet 20 MEQ PO (08:09)
[2021-09-19] MEDS: Magnesium Chloride 64 MG Delay Rel.Tablet 128 MG PO (08:09)
[2021-09-19] MEDS: Aspirin 81 MG TAB.CHEW PO (08:10)
[2021-09-19] MEDS: Clopidogrel Bisulfate 75 MG Tablet PO (08:10)
[2021-09-19] MEDS: Docusate Sodium 100 MG Capsule PO (08:10)
--- NOTE | 2021-09-19 09:04 | DCINST_ITS ---
Discharge Instructions Diet Discharge Diet: Low fat / Low cholesterol Activity Discharge Activity: Return to Normal Activity Dressing / Incision Call your doctor if you observe: Fever of 101 or Higher, Change in Color, Inability to urinate and Uncontrolled pain Follow Up Care Test Results: Test results from this visit will be discussed in further detail at your follow- up appointment, if applicable. Discharge Plan Admission Admit Date/Time: 09/15/21 09:47 Primary Reason for Your Visit: Acute epididymitis Attending Provider: Miguel Luna Primary Care Provider: Oral Calderon Consulting Providers: Shalini Marion ; Nba Donald ; Maicol Calhoun ; Colten Cleveland Discharge Orders/Prescriptions Prescriptions: New ertapenem 1 gram recon soln 1 g IM Q24H Qty: 14 0RF Rx Instructions: dx: esbl infection weekly bmp, cbc, and LFT. Fax to [phone] docusate sodium 100 mg Capsule 100 mg PO DAILY Qty: 0 0RF morphine 15 mg Tablet Extended Release 30 mg PO BID 5 Days Qty: 20 0RF metoprolol succinate 25 mg Tablet Extended Release 24 Hr 25 mg PO BID 30 Days Qty: 60 0RF hydromorphone [Dilaudid] 2 mg tablet 2 mg PO Q6H PRN (Reason: pain) 5 Days Qty: 20 0RF Continued pantoprazole 40 mg tablet,delayed release (DR/EC) 40 mg PO BID gabapentin 600 mg tablet 600 mg PO 4X/DAY amitriptyline 25 mg tablet 25 mg PO QHS alendronate 70 mg tablet 70 mg PO QWEEK Rx Instructions: pt takes on Mondays potassium chloride 20 mEq tablet extended release 20 meq PO DAILY warfarin 4 mg tablet 4 mg PO DAILY Protocol: Dose Management Condition: Wednesday Dose/Route: 4 mg Instruction: 1 x 4 mg tablet Condition: Wednesday Dose/Route: 4 mg Instruction: 1 x 4 mg tablet Condition: Wednesday Dose/Route: 2 mg Instruction: 0.5 x 4 mg tablets Condition: Wednesday Dose/Route: 4 mg Instruction: 1 x 4 mg tablet Condition: Dose/Route: 4 mg Instruction: 1 x 4 mg tablet Condition: Wednesday Dose/Route: 4 mg Instruction: 1 x 4 mg tablet Condition: Wednesday Dose/Route: 4 mg Instruction: 1 x 4 mg tablet Protocol Text: Adjustment Start Date: Wednesday08/19/21 INR Value: 3.5 INR Date: 08/19/21 Recheck Date: 08/26/21 amlodipine 2.5 mg tablet 2.5 mg PO DAILY Qty: 30 11RF ergocalciferol (vitamin D2) 1,250 mcg (50,000 unit) capsule 50,000 unit PO QWEEK Qty: 24 0RF magnesium oxide 400 MG tablet 400 mg PO DAILY furosemide 40 mg tablet 40 mg PO DAILY rosuvastatin 40 mg tablet 1 tab PO DAILY Label Comments: TAKE 1 TABLET BY MOUTHCONCE DAILY Jardiance 10 mg tablet 10 mg PO DAILY Label Comments: TAKE 1 TABLET BY MOUTHCONCE DAILY albuterol sulfate 0.63 mg/3 mL Solution For Nebulization 0.63 mg INHALATION Q4H PRN (Reason: Shortness Of Breath) Trelegy Ellipta 100-62.5-25 mcg Blister With Device 1 inh INHALATION DAILY aspirin 81 mg Tablet,Chewable 81 mg PO DAILY@0800 Qty: 90 0RF clopidogrel 75 mg tablet 75 mg PO DAILY Qty: 90 3RF nitroglycerin 0.4 mg tablet, sublingual 0.4 mg sublingual Q5M PRN (Reason: Pain) Qty: 100 3RF Rx Instructions: do not exceed 3 doses per episode isosorbide mononitrate 60 mg tablet extended release 24 hr 60 mg PO BID Qty: 180 3RF lisinopril 5 mg tablet 5 mg PO DAILY ipratropium-albuterol 0.5 mg-3 mg(2.5 mg base)/3 mL solution for nebulization 3 ml inhalation Q4H PRN (Reason: shortness of breath or wheezing) Qty: 180 3RF Discontinued metoprolol succinate 50 mg tablet extended release 24 hr 50 mg PO BID Qty: 180 3RF docusate sodium 50 mg Capsule 50 mg PO DAILY ciprofloxacin HCl [Cipro] 500 mg tablet 500 mg PO BID 10 Days Qty: 20 0RF Referrals / Follow Up: Oral Calderon MD [Primary Care Provider] - Within 1 Week Disposition Disposition (needs filled in before D/C Order can be placed): Home, Self Care
--- NOTE | 2021-09-19 09:24 | PCM.DC.SUM ---
Documented by User: SOY Roy 09/19/21 09:29 Providers Date of Admission: 09/15/21 Date of Discharge: 09/19/21 Primary Care Physician: Dr. 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 coli epidydimidis on invanz EMERGENT Consult: No MD Notified: Yes Date Notified: 09/16/21 Time Notified: 18:41 Method of Notification: Answering Service Reason For Visit: RECENT NSTEMI/PCI, UTI, EPIDIDYMITIS Diagnosis Discharge Diagnosis (1) Acute epididymitis: Status: Acute Code(s): N45.1 - Epididymitis Plan 1.? Acute right-sided epididymoorchitis, recent diagnosis UTI -failed outpatient treatment with Cipro.? Prior urine culture 09/12/2021 E. coli, ESBL.? -Continue IV ertapenem.? -Supportive management for epididymitis/hydrocele.? -Urology and ID following 2. CAD with history of recent PCI -continue aspirin, statin, Plavix.? -Continue to hold metoprolol, lisinopril for low blood pressure 3. Chronic hypoxic respiratory failure secondary to chronic COPD and chronic heart failure with reduced ejection fraction -recently discharged on 2 L supplemental oxygen.? -Continue oxygen to maintain O2 at or above 90%. 4. Chronic heart failure with reduced ejection fraction/ischemic cardiomyopathy -EF 25%.? -AICD in place.? -Continue medical management. 5. Chronic COPD -as needed albuterol aerosols. 6. Chronic kidney disease stage IIIa -at baseline. 7. PAD -history of fem-tib bypass.? -Continue aspirin, Plavix, statin. 8. Paroxysmal atrial fibrillation -on Coumadin, metoprolol. 9. History of CVA -continue aspirin, Plavix, statin. 10. Type 2 diabetes mellitus -Accu-Cheks with sliding scale insulin. 11. Hypertension -Vital signs per protocol, currently stable -resume home BP regimen when blood pressure improved. 12. Hyperlipidemia -continue statin. 13. GERD -continue PPI. 14. Tobacco dependence -encouraged cessation. 15. LETTY -on BiPAP nightly. DVT prophylaxis-Coumadin This patient was seen by SOY Roy under the supervision of Dr. Luna. 10 minutes spent in clinical coordination of patient's plan of care. Medications at Discharge Home Medications magnesium oxide 400 mg PO DAILY supplement 11/07/18 pantoprazole 40 mg tablet,delayed release 40 mg PO BID stomach 11/15/18 amitriptyline 25 mg tablet 25 mg PO QHS Depression 08/17/19 alendronate 70 mg tablet 70 mg PO QWEEK osteoporosis 03/15/20 gabapentin 600 mg tablet 600 mg PO 4X/DAY nerve pain 03/15/20 furosemide 40 mg tablet 40 mg PO DAILY water pill 09/13/20 potassium chloride 20 mEq tablet,extended release 20 meq PO DAILY 11/11/20 clopidogrel 75 mg tablet 75 mg PO DAILY anti platelet #90 tabs 11/21/20 isosorbide mononitrate 60 mg tablet,extended release 24 hr 60 mg PO BID #180 tabs 03/19/21 nitroglycerin 0.4 mg sublingual tablet 0.4 mg sublingual Q5M PRN Pain #100 tabs 03/19/21 warfarin 4 mg tablet 4 mg PO DAILY 06/04/21 amlodipine 2.5 mg tablet 2.5 mg PO DAILY #30 tabs 06/17/21 ergocalciferol (vitamin D2) 1,250 mcg (50,000 unit) capsule 50,000 unit PO QWEEK #24 caps 06/17/21 lisinopril 5 mg tablet 5 mg PO DAILY 06/30/21 ipratropium 0.5 mg-albuterol 3 mg (2.5 mg base)/3 mL nebulization soln 3 ml inhalation Q4H PRN shortness of breath or wheezing #180 mL 08/13/21 empagliflozin 10 mg tablet (Jardiance) 10 mg PO DAILY 09/06/21 rosuvastatin 40 mg tablet 1 tab PO DAILY 09/06/21 albuterol sulfate 0.63 mg/3 mL solution for nebulization 0.63 mg inhalation Q4H PRN Shortness Of Breath 09/08/21 fluticasone fur. 100 mcg-umeclid 62.5 mcg-vilant 25 mcg inhalat.powder (Trelegy Ellipta) 1 inh inhalation DAILY Check with primary doctor 09/08/21 aspirin 81 mg chewable tablet 81 mg PO DAILY@0800 #90 tabs 09/09/21 ertapenem 1 gram solution for injection 1 g IM Q24H #14 ea 09/18/21 docusate sodium 100 mg capsule 100 mg PO DAILY #0 caps 09/19/21 hydromorphone 2 mg tablet (Dilaudid) 2 mg PO Q6H PRN pain 5 days #20 tabs 09/19/21 metoprolol succinate 25 mg tablet,extended release 24 hr 25 mg PO BID 30 days #60 tabs 09/19/21 morphine 15 mg tablet,extended release 30 mg PO BID 5 days #20 tabs 09/19/21 Hospital Course Operations None Procedures - (Testicular Ultrasound) Summary of Care Provided Minutes Spent on Discharge: 35 Hospital Course: Pt is a 61-year-old male who initially came in for right groin and testicle pain and scrotal swelling. Patient had recently been diagnosed with a UTI and was being treated outpatient with ciprofloxacin. Patient states that his scrotal swelling and pain got worse and he read presented to the ER. Testicular ultrasound was done in the ER which showed no evidence of testicular mass or torsion, findings consistent with an acute right-sided epididymitis and hydrocele. Patient was evaluated and followed by Dr. Donald who determined that there was no need to drain patient's hydrocele at this time and that patient could be discharged home with antibiotics. Patient was initiated on Invanz while inpatient and will be sent home with IM ertapenem orders. Patient will come to outpatient infusion center to receive shots for the next 14 days. Patient will be discharged home with pain medication including morphine and Dilaudid as patient has been receiving morphine and fentanyl while inpatient which is only moderately managed his pain. Instructed patient that he will need to follow-up with his PCP at the beginning of the week for close monitoring and follow-up. Physical Exam Const alert and oriented x3 Constitutional Narrative: Appears uncomfortable Orientation / Consciousness: awake HEENT normocephalic and moist oral mucous membranes Eyes conjunctivae normal Neck no lymphadenopathy Resp normal respiratory effort and clear to auscultation bilaterally Cardio regular rate and regular rhythm Peripheral Pulses: pulses 2+ throughout GI normal to inspection, nondistended, normoactive bowel sounds and non-tender Extremity normal to inspection Skin no rashes or lesions noted Skin Narrative: Scrotal edema and erythema Lesions: no lesions Rashes: no rashes Trauma: no lacerations or abrasions Neuro no focal motor deficits and no sensory deficits noted Psych mental status grossly normal and affect normal Weight / BMI Weight Weight: 198 lb 10.184 oz Body Mass Index (BMI) 29.7 ABG / Lab / Microbiology Data Result Diagrams: 09/19/21 06:05 09/19/21 06:05 Laboratory: Laboratory Results - last 24 hr 09/18/21 11:26: POC Glucose 138 H 09/18/21 15:51: POC Glucose 129 H 09/18/21 21:12: POC Glucose 138 H 09/19/21 06:05: WBC 8.1, RBC 4.44 L, Hgb 13.0, Hct 42.0, MCV 94.6 H, MCH 29.3, MCHC 31.0 L D, RDW Std Deviation 56.1 H, RDW Coeff of Jack 16.1 H, Plt Count 294, MPV 9.5, Immature Gran % (Auto) 1.500 H, Neut % (Auto) 61.6, Lymph % (Auto) 23.3, [place] % (Auto) 4.6, Eos % (Auto) 7.9 H, Baso % (Auto) 1.1 H, Absolute Neuts (auto) 5.0, Absolute Lymphs (auto) 1.88, Nucleated RBC % 0 09/19/21 06:05: Sodium 135 L, Potassium 3.9, Chloride 101, Carbon Dioxide 30.0, Anion Gap 4 L, BUN 7, Creatinine 1.09, Estim Creat Clear Calc 68.22, Est GFR (MDRD) Af Amer 89, Est GFR (MDRD) Non-Af 74, BUN/Creatinine Ratio 6.4 L, Glucose 124 H, Calcium 8.5, Total Bilirubin 0.30, AST 16, ALT 23, Alkaline Phosphatase 74, Total Protein 6.7, Albumin 2.5 L, Globulin 4.2, Albumin/Globulin Ratio 0.6 L 09/19/21 06:05: PT 25.4 H, INR 2.4 09/19/21 06:34: POC Glucose 131 H D/C Instructions Discharge Diet: Low fat / Low cholesterol Additional Activity Instructions: may use towel as a testicular sling to help with pain and swelling Call your doctor if you observe: Fever of 101 or Higher, Change in Color, Inability to urinate and Uncontrolled pain Meaningful Use Info Meaningful Use Diagnoses (Choose all that apply): None applicable Discharge Plan Admission Admit Date/Time: 09/15/21 09:47 Primary Reason for Your Visit: Acute epididymitis Attending Provider: Miguel Luna Primary Care Provider: Oral Calderon Consulting Providers: Shalini Marion ; Nba Donald ; Maicol Calhoun ; Colten Cleveland Discharge Orders/Prescriptions Prescriptions: New ertapenem 1 gram recon soln 1 g IM Q24H Qty: 14 0RF Rx Instructions: dx: esbl infection weekly bmp, cbc, and LFT. Fax to [phone] docusate sodium 100 mg Capsule 100 mg PO DAILY Qty: 0 0RF morphine 15 mg Tablet Extended Release 30 mg PO BID 5 Days Qty: 20 0RF metoprolol succinate 25 mg Tablet Extended Release 24 Hr 25 mg PO BID 30 Days Qty: 60 0RF hydromorphone [Dilaudid] 2 mg tablet 2 mg PO Q6H PRN (Reason: pain) 5 Days Qty: 20 0RF Continued pantoprazole 40 mg tablet,delayed release (DR/EC) 40 mg PO BID gabapentin 600 mg tablet 600 mg PO 4X/DAY amitriptyline 25 mg tablet 25 mg PO QHS alendronate 70 mg tablet 70 mg PO QWEEK Rx Instructions: pt takes on Mondays potassium chloride 20 mEq tablet extended release 20 meq PO DAILY warfarin 4 mg tablet 4 mg PO DAILY Protocol: Dose Management Condition: Wednesday Dose/Route: 2 mg Instruction: 0.5 x 4 mg tablets Condition: Wednesday Dose/Route: 4 mg Instruction: 1 x 4 mg tablet Condition: Wednesday Dose/Route: 4 mg Instruction: 1 x 4 mg tablet Condition: Wednesday Dose/Route: 4 mg Instruction: 1 x 4 mg tablet Condition: Dose/Route: 4 mg Instruction: 1 x 4 mg tablet Condition: Wednesday Dose/Route: 4 mg Instruction: 1 x 4 mg tablet Condition: Wednesday Dose/Route: 2 mg Instruction: 0.5 x 4 mg tablets Protocol Text: Adjustment Start Date: Wednesday09/19/21 INR Value: 2.4 INR Date: 09/19/21 Recheck Date: 09/22/21 amlodipine 2.5 mg tablet 2.5 mg PO DAILY Qty: 30 11RF ergocalciferol (vitamin D2) 1,250 mcg (50,000 unit) capsule 50,000 unit PO QWEEK Qty: 24 0RF magnesium oxide 400 MG tablet 400 mg PO DAILY furosemide 40 mg tablet 40 mg PO DAILY rosuvastatin 40 mg tablet 1 tab PO DAILY Label Comments: TAKE 1 TABLET BY MOUTHCONCE DAILY Jardiance 10 mg tablet 10 mg PO DAILY Label Comments: TAKE 1 TABLET BY MOUTHCONCE DAILY albuterol sulfate 0.63 mg/3 mL Solution For Nebulization 0.63 mg INHALATION Q4H PRN (Reason: Shortness Of Breath) Trelegy Ellipta 100-62.5-25 mcg Blister With Device 1 inh INHALATION DAILY aspirin 81 mg Tablet,Chewable 81 mg PO DAILY@0800 Qty: 90 0RF clopidogrel 75 mg tablet 75 mg PO DAILY Qty: 90 3RF nitroglycerin 0.4 mg tablet, sublingual 0.4 mg sublingual Q5M PRN (Reason: Pain) Qty: 100 3RF Rx Instructions: do not exceed 3 doses per episode isosorbide mononitrate 60 mg tablet extended release 24 hr 60 mg PO BID Qty: 180 3RF lisinopril 5 mg tablet 5 mg PO DAILY ipratropium-albuterol 0.5 mg-3 mg(2.5 mg base)/3 mL solution for nebulization 3 ml inhalation Q4H PRN (Reason: shortness of breath or wheezing) Qty: 180 3RF Discontinued metoprolol succinate 50 mg tablet extended release 24 hr 50 mg PO BID Qty: 180 3RF docusate sodium 50 mg Capsule 50 mg PO DAILY ciprofloxacin HCl [Cipro] 500 mg tablet 500 mg PO BID 10 Days Qty: 20 0RF Referrals / Follow Up: Nba Donald MD [Med Staff - Active Staff] - Within 2 Weeks Oral Calderon MD [Primary Care Provider] - 09/25/21 10:40 am (Appointment is with . is on vacation all week.) Disposition Disposition (needs filled in before D/C Order can be placed): Home, Self Care Documented by User: Dr. Miguel Lnua DO 09/21/21 11:07 Providers Date of Admission: 09/15/21 Reason For Visit: RECENT NSTEMI/PCI, UTI, EPIDIDYMITIS Diagnosis Discharge Diagnosis (1) Acute epididymitis: Status: Acute Code(s): N45.1 - Epididymitis Medications at Discharge Home Medications magnesium oxide 400 mg PO DAILY supplement 11/07/18 pantoprazole 40 mg tablet,delayed release 40 mg PO BID stomach 11/15/18 amitriptyline 25 mg tablet 25 mg PO QHS Depression 08/17/19 alendronate 70 mg tablet 70 mg PO QWEEK osteoporosis 03/15/20 gabapentin 600 mg tablet 600 mg PO 4X/DAY nerve pain 03/15/20 furosemide 40 mg tablet 40 mg PO DAILY water pill 09/13/20 potassium chloride 20 mEq tablet,extended release 20 meq PO DAILY 11/11/20 clopidogrel 75 mg tablet 75 mg PO DAILY anti platelet #90 tabs 11/21/20 isosorbide mononitrate 60 mg tablet,extended release 24 hr 60 mg PO BID #180 tabs 03/19/21 nitroglycerin 0.4 mg sublingual tablet 0.4 mg sublingual Q5M PRN Pain #100 tabs 03/19/21 warfarin 4 mg tablet 4 mg PO DAILY 06/04/21 amlodipine 2.5 mg tablet 2.5 mg PO DAILY #30 tabs 06/17/21 ergocalciferol (vitamin D2) 1,250 mcg (50,000 unit) capsule 50,000 unit PO QWEEK #24 caps 06/17/21 lisinopril 5 mg tablet 5 mg PO DAILY 06/30/21 ipratropium 0.5 mg-albuterol 3 mg (2.5 mg base)/3 mL nebulization soln 3 ml inhalation Q4H PRN shortness of breath or wheezing #180 mL 08/13/21 empagliflozin 10 mg tablet (Jardiance) 10 mg PO DAILY 09/06/21 rosuvastatin 40 mg tablet 1 tab PO DAILY 09/06/21 albuterol sulfate 0.63 mg/3 mL solution for nebulization 0.63 mg inhalation Q4H PRN Shortness Of Breath 09/08/21 fluticasone fur. 100 mcg-umeclid 62.5 mcg-vilant 25 mcg inhalat.powder (Trelegy Ellipta) 1 inh inhalation DAILY Check with primary doctor 09/08/21 aspirin 81 mg chewable tablet 81 mg PO DAILY@0800 #90 tabs 09/09/21 ertapenem 1 gram solution for injection 1 g IM Q24H #14 ea 09/18/21 docusate sodium 100 mg capsule 100 mg PO DAILY #0 caps 09/19/21 hydromorphone 2 mg tablet (Dilaudid) 2 mg PO Q6H PRN pain 5 days #20 tabs 09/19/21 metoprolol succinate 25 mg tablet,extended release 24 hr 25 mg PO BID 30 days #60 tabs 09/19/21 morphine 15 mg tablet,extended release 30 mg PO BID 5 days #20 tabs 09/19/21 ABG / Lab / Microbiology Data Result Diagrams: 09/19/21 06:05 09/19/21 06:05 Discharge Plan Admission Admit Date/Time: 09/15/21 09:47 Primary Reason for Your Visit: Acute epididymitis Attending Provider: Miguel Luna Primary Care Provider: Oral Calderon Consulting Providers: Shalini Marion ; Nba Donald ; Maicol Calhoun ; Colten Cleveland Discharge Orders/Prescriptions Prescriptions: New ertapenem 1 gram recon soln 1 g IM Q24H Qty: 14 0RF Rx Instructions: dx: esbl infection weekly bmp, cbc, and LFT. Fax to [phone] docusate sodium 100 mg Capsule 100 mg PO DAILY Qty: 0 0RF morphine 15 mg Tablet Extended Release 30 mg PO BID 5 Days Qty: 20 0RF metoprolol succinate 25 mg Tablet Extended Release 24 Hr 25 mg PO BID 30 Days Qty: 60 0RF hydromorphone [Dilaudid] 2 mg tablet 2 mg PO Q6H PRN (Reason: pain) 5 Days Qty: 20 0RF Continued pantoprazole 40 mg tablet,delayed release (DR/EC) 40 mg PO BID gabapentin 600 mg tablet 600 mg PO 4X/DAY amitriptyline 25 mg tablet 25 mg PO QHS alendronate 70 mg tablet 70 mg PO QWEEK Rx Instructions: pt takes on Mondays potassium chloride 20 mEq tablet extended release 20 meq PO DAILY warfarin 4 mg tablet 4 mg PO DAILY Protocol: Dose Management Condition: Wednesday Dose/Route: 2 mg Instruction: 0.5 x 4 mg tablets Condition: Wednesday Dose/Route: 4 mg Instruction: 1 x 4 mg tablet Condition: Wednesday Dose/Route: 4 mg Instruction: 1 x 4 mg tablet Condition: Wednesday Dose/Route: 4 mg Instruction: 1 x 4 mg tablet Condition: Dose/Route: 4 mg Instruction: 1 x 4 mg tablet Condition: Wednesday Dose/Route: 4 mg Instruction: 1 x 4 mg tablet Condition: Wednesday Dose/Route: 2 mg Instruction: 0.5 x 4 mg tablets Protocol Text: Adjustment Start Date: Wednesday09/19/21 INR Value: 2.4 INR Date: 09/19/21 Recheck Date: 09/22/21 amlodipine 2.5 mg tablet 2.5 mg PO DAILY Qty: 30 11RF ergocalciferol (vitamin D2) 1,250 mcg (50,000 unit) capsule 50,000 unit PO QWEEK Qty: 24 0RF magnesium oxide 400 MG tablet 400 mg PO DAILY furosemide 40 mg tablet 40 mg PO DAILY rosuvastatin 40 mg tablet 1 tab PO DAILY Label Comments: TAKE 1 TABLET BY MOUTHCONCE DAILY Jardiance 10 mg tablet 10 mg PO DAILY Label Comments: TAKE 1 TABLET BY MOUTHCONCE DAILY albuterol sulfate 0.63 mg/3 mL Solution For Nebulization 0.63 mg INHALATION Q4H PRN (Reason: Shortness Of Breath) Trelegy Ellipta 100-62.5-25 mcg Blister With Device 1 inh INHALATION DAILY aspirin 81 mg Tablet,Chewable 81 mg PO DAILY@0800 Qty: 90 0RF clopidogrel 75 mg tablet 75 mg PO DAILY Qty: 90 3RF nitroglycerin 0.4 mg tablet, sublingual 0.4 mg sublingual Q5M PRN (Reason: Pain) Qty: 100 3RF Rx Instructions: do not exceed 3 doses per episode isosorbide mononitrate 60 mg tablet extended release 24 hr 60 mg PO BID Qty: 180 3RF lisinopril 5 mg tablet 5 mg PO DAILY ipratropium-albuterol 0.5 mg-3 mg(2.5 mg base)/3 mL solution for nebulization 3 ml inhalation Q4H PRN (Reason: shortness of breath or wheezing) Qty: 180 3RF Discontinued metoprolol succinate 50 mg tablet extended release 24 hr 50 mg PO BID Qty: 180 3RF docusate sodium 50 mg Capsule 50 mg PO DAILY ciprofloxacin HCl [Cipro] 500 mg tablet 500 mg PO BID 10 Days Qty: 20 0RF Referrals / Follow Up: Nba Donald MD [Med Staff - Active Staff] - Within 2 Weeks Oral Calderon MD [Primary Care Provider] - 09/25/21 10:40 am (Appointment is with . is on vacation all week.) Disposition Disposition (needs filled in before D/C Order can be placed): Home, Self Care Charges/Coding Addendum Addendum: Patient was seen and examined today independently of Bibi Figueredo, I talked to him earlier this morning about going home, we are setting the patient up for Invanz injections as an outpatient, narcotics will be prescribed for pain at home. On examination he appeared in good health and spirits. Vital signs as documented. Skin warm and dry and without overt rashes. Neck without JVD, neck was supple, trachea midline, thyroid was normal. Lungs clear bilaterally, normal air movement was noted. Heart exam notable for regular rhythm, normal sounds and absence of murmurs, rubs or gallops. Abdomen unremarkable and without evidence of organomegaly, masses, or abdominal aortic enlargement. Bowel sounds are present, abdomen is not distended. Extremities nonedematous, no cyanosis was noted, no clubbing was noted. Neuro: Cranial nerves II through XII are grossly intact, no focal motor deficits were noted, sensation to light touch and pinprick intact, motor exam 5/5 throughout. Psych: Patient is alert and oriented x3, he does not appear anxious or depressed, he does not appear agitated. Impression:#1 acute epididymitis-continue present treatment, patient will need to continue on IM Invanz therapy as an outpatient #2 atherosclerotic heart disease-continue aspirin, and a statin.? I have decided to restart the patient's metoprolol succinate at a lower dosage due to concerns of low blood pressure. #3 chronic hypoxic respiratory failure secondary to COPD and chronic systolic congestive heart failure-continue supplemental oxygen to maintain a pulse ox above 90%, patient is currently on 2 L/min via nasal cannula #4 chronic systolic congestive heart failure-patient has an ICD, continue present medical management #5 chronic obstructive pulmonary disease-continue as needed albuterol aerosols #6 chronic kidney disease stage IIIa -complicates care, medical management, and recovery, prognosis #7 paroxysmal atrial fibrillation #8 acute cystitis secondary to ESBL E. coli Patient appears to be stable for discharge at this time on 09/19/2021, I have reviewed Bibi Figueredo's discharge summary including her medical assessment and plan of care and endorse it. Total clinical time spent by myself addressing the patient's medical issues, reviewing the data, and collaborating with patient's care team: 25-minutes Visit Charges Inpatient E&M: [id number] Disch Hosp
--- NOTE | 2021-09-19 10:09 | CASEMGMT ---
Addendum entered by Frances Joseph 09/19/21 14:25: Script obtained and faxed to [facility] OP infusion. Dr. Calhoun states ok for pt to have IM in the am tomorrow. Call to Eulalia in OP infusion to update, voices understanding. Per Eulalia, pt to report to registration in [facility] at 0930 tomorrow morning and wednesday morning, call [phone] on arrival at 0930. Pt will then report to OP infusion at 0930 on wednesday. Pt/ updated on all and also this was placed on pt d/c instructions.. Pt/ voice no further questions/concerns/needs. Stephen SALMERON CM Addendum entered by Frances Joseph 09/19/21 12:24: Still awaiting Dr. Calhoun to see pt and sign script for IM med. Pt/ are inquiring about giving IM injection at home and call to [facility] and per pharmacy, med would need reconstituted at home. This RN CM to room and pt/ updated and pt states, I will just come here and the the injections.' CM to follow. Stephen SALMERON CM Original Note: Call to [facility] OP infusion to notify that pt will be leaving today and script will be faxed once signed. CM to follow. Stephen SALMERON CM
== END 2021-09-19 14:45 | disposition home or self-care (01) | DRG 727 ==
LOC: ED 22:44 → PCU 23:28
PROVIDERS: Family Medicine; Nurse Practitioner Family; Admitting Provider Family Medicine; Emergency Provider Emergency Medicine; PCP Family Medicine; Visit Provider Internal Medicine
DX: N45.3 Epididymo-orchitis (principal); I21.4 Non-ST elevation (NSTEMI) myocardial infarction; J96.11 Chronic respiratory failure with hypoxia; I13.0 Hypertensive heart and chronic kidney disease with heart failure and stage 1 through stage 4 chronic kidney disease, or unspecified chronic kidney disease; N30.00 Acute cystitis without hematuria; I50.22 Chronic systolic (congestive) heart failure; Z16.12 Extended spectrum beta lactamase (ESBL) resistance; E11.22 Type 2 diabetes mellitus with diabetic chronic kidney disease; E11.40 Type 2 diabetes mellitus with diabetic neuropathy, unspecified; E11.51 Type 2 diabetes mellitus with diabetic peripheral angiopathy without gangrene; B96.20 Unspecified Escherichia coli [E. coli] as the cause of diseases classified elsewhere; I95.9 Hypotension, unspecified; I25.709 Atherosclerosis of coronary artery bypass graft(s), unspecified, with unspecified angina pectoris; I48.0 Paroxysmal atrial fibrillation; I25.119 Atherosclerotic heart disease of native coronary artery with unspecified angina pectoris; J44.9 Chronic obstructive pulmonary disease, unspecified; N18.31 Chronic kidney disease, stage 3a; I25.5 Ischemic cardiomyopathy; E78.5 Hyperlipidemia, unspecified; K21.9 Gastro-esophageal reflux disease without esophagitis; G47.33 Obstructive sleep apnea (adult) (pediatric); F41.9 Anxiety disorder, unspecified; F17.210 Nicotine dependence, cigarettes, uncomplicated; N43.3 Hydrocele, unspecified; F32.A Depression, unspecified; Z79.82 Long term (current) use of aspirin; Z79.1 Long term (current) use of non-steroidal anti-inflammatories (NSAID); Z79.01 Long term (current) use of anticoagulants; Z79.02 Long term (current) use of antithrombotics/antiplatelets; Z79.83 Long term (current) use of bisphosphonates; Z79.899 Other long term (current) drug therapy; Z86.73 Personal history of transient ischemic attack (TIA), and cerebral infarction without residual deficits; Z95.810 Presence of automatic (implantable) cardiac defibrillator; Z95.5 Presence of coronary angioplasty implant and graft
CPT/HCPCS: 36415; 74177; 76870; 80048; 80053; 81001; 82962; 83605; 83690; 85025; 85610; 87086; 87088; 87186; 87491; 87591; 93005; 93976; 94640; 96361; 96374; 97802; 99284; 99285; 99406; J2185; J7030; J7040; Q9967; A4216; J2405

== ENCOUNTER 2021-09-20 09:23 | Outpatient (CLI) | payer MEDICARE, SELFPAY ==
[2018-12-13 11:07] VITALS: BMI 26.3
[2021-09-20] MEDS: Ertapenem Sod 1 GM/10 ML Vial IM (10:32)
== END 2021-09-20 11:16 | disposition home or self-care (01) ==
LOC: MEDOUTP 09:27 → PCU 09:27
PROVIDERS: PCP Family Medicine; Visit Provider Internal Medicine Infectious Disease
DX: B99.9 Unspecified infectious disease (principal); Z16.12 Extended spectrum beta lactamase (ESBL) resistance
CPT/HCPCS: 96372

== ENCOUNTER 2021-09-21 09:20 | Outpatient (CLI) | payer MEDICARE, SELFPAY ==
[2018-12-13 11:07] VITALS: BMI 26.3
[2021-09-21] MEDS: Ertapenem Sod 1 GM/10 ML Vial IM (09:36)
== END 2021-09-21 09:41 | disposition home or self-care (01) ==
LOC: MEDOUTP 09:21 → PCU 09:21
PROVIDERS: PCP Family Medicine; Visit Provider Internal Medicine Infectious Disease
DX: B99.9 Unspecified infectious disease (principal); Z16.12 Extended spectrum beta lactamase (ESBL) resistance
CPT/HCPCS: 96372

== ENCOUNTER → 2021-09-22 | Outpatient (CLI) | payer MEDICARE, SELFPAY ==
[2018-12-13 11:07] VITALS: BMI 26.3
[2021-09-22 09:36] VITALS: BP 102/68; PULSE 99; RESP 16; TEMP 36.4; O2SAT 98
[2021-09-22] MEDS: Ertapenem Sod 1 GM/10 ML Vial IM (10:06)
== END | disposition home or self-care (01) ==
LOC: MEDOUTP 09:27
PROVIDERS: PCP Family Medicine; Visit Provider Internal Medicine Infectious Disease
DX: B99.9 Unspecified infectious disease (principal); Z16.12 Extended spectrum beta lactamase (ESBL) resistance
CPT/HCPCS: 96372

== ENCOUNTER → 2021-09-23 | Outpatient (CLI) | payer MEDICARE, SELFPAY ==
[2018-12-13 11:07] VITALS: BMI 26.3
[2021-09-23 10:02] VITALS: BP 119/73; PULSE 84; TEMP 36; O2SAT 97
[2021-09-23] MEDS: Ertapenem Sod 1 GM/10 ML Vial IM (10:18)
[2021-09-23 10:44] LABS: Hematocrit 44.3 % (40-54); Hemoglobin 14.3 g/dL (13.0-16.5); Mean Corp Hgb Conc 32.3 g/dL (32-36); Mean Corpuscular Hgb 29.6 pg (27.0-32.0); Mean Corpuscular Volume 91.7 fL (80-94); Mean Platelet Vol. 9.6 fl (6.2-12.0); Platelet Count 382 K/mm3 (150-450); RBC Distribution Width CV 15.9 % (11.6-14.6); RBC Distribution Width SD 52.9 fl (35.1-43.9); Red Blood Count 4.83 M/mm3 (4.6-6.2)
[2021-09-23 11:00] LABS: AST(SGOT) 25 U/L (15-37); Alanine Aminotransfer ALT/SGPT 29 U/L (16-61); Albumin, Serum 3.1 g/dL (3.2-5.0); Alkaline Phosphatase 92 U/L (45-117); Anion Gap 3 (5-15); BUN 16 mg/dL (7-18); Bilirubin, Direct 0.14 mg/dL (0.00-0.30); Chloride 99 mmol/L (98-107); Cholesterol 108 mg/dL (200); Creatinine, Serum 1.33 mg/dL (0.70-1.30); EST Glomerular Filtration Rate 58 mL/min (>60); Est Glom Filt Rate - Afr Amer 71 mL/min (>60); Globulin 4.6 g/dL (2.2-4.2); Glucose 117 mg/dL (74-106); High Density Lipoprotein 19 mg/dL; Potassium 3.8 mmol/L (3.5-5.1); Protein, Total 7.7 g/dL (6.4-8.2); Sodium Level 136 mmol/L (136-145); Triglycerides 306 mg/dL; Very Low Density Lipoprotein 61 mg/dL (5-40)
[2021-09-23 11:03] LABS: International Normalized Ratio 2.5; Prothrombin Time (Protime)PT. 26.6 SECONDS (11.7-14.9)
== END | disposition home or self-care (01) ==
LOC: MEDOUTP 09:52
PROVIDERS: Nurse Practitioner Family; PCP Family Medicine; Referring Provider Internal Medicine Infectious Disease; Visit Provider Internal Medicine Infectious Disease
DX: B99.9 Unspecified infectious disease (principal); I25.709 Atherosclerosis of coronary artery bypass graft(s), unspecified, with unspecified angina pectoris; Z16.12 Extended spectrum beta lactamase (ESBL) resistance; E78.00 Pure hypercholesterolemia, unspecified
CPT/HCPCS: 36415; 80048; 80061; 80076; 85027; 85610; 96372

== ENCOUNTER → 2021-09-24 | Outpatient (CLI) | payer MEDICARE, SELFPAY ==
[2018-12-13 11:07] VITALS: BMI 26.3
[2021-09-24 08:54] VITALS: BP 95/52; PULSE 80; TEMP 35.7; O2SAT 97
[2021-09-24] MEDS: Ertapenem Sod 1 GM/10 ML Vial IM (09:25)
== END | disposition home or self-care (01) ==
LOC: MEDOUTP 08:47
PROVIDERS: PCP Family Medicine; Referring Provider Internal Medicine Infectious Disease; Visit Provider Internal Medicine Infectious Disease
DX: B99.9 Unspecified infectious disease (principal); Z16.12 Extended spectrum beta lactamase (ESBL) resistance
CPT/HCPCS: 96372

== ENCOUNTER → 2021-09-25 | Outpatient (CLI) | payer MEDICARE, SELFPAY ==
[2018-12-13 11:07] VITALS: BMI 26.3
[2021-09-25 08:47] VITALS: BP 118/69; PULSE 84; RESP 16; TEMP 36.2; O2SAT 95
[2021-09-25] MEDS: Ertapenem Sod 1 GM/10 ML Vial IM (09:20)
== END | disposition home or self-care (01) ==
LOC: MEDOUTP 08:37
PROVIDERS: PCP Family Medicine; Referring Provider Internal Medicine Infectious Disease; Visit Provider Internal Medicine Infectious Disease
DX: B99.9 Unspecified infectious disease (principal); Z16.12 Extended spectrum beta lactamase (ESBL) resistance
CPT/HCPCS: 96372

== ENCOUNTER → 2021-09-26 | Outpatient (CLI) | payer MEDICARE, SELFPAY ==
[2018-12-13 11:07] VITALS: BMI 26.3
[2021-09-26 08:54] VITALS: BP 117/63; PULSE 84; RESP 16; TEMP 36.1; O2SAT 100
[2021-09-26] MEDS: Ertapenem Sod 1 GM/10 ML Vial IM (09:20)
== END | disposition home or self-care (01) ==
LOC: MEDOUTP 08:48
PROVIDERS: PCP Family Medicine; Visit Provider Internal Medicine Infectious Disease
DX: B99.9 Unspecified infectious disease (principal); Z16.12 Extended spectrum beta lactamase (ESBL) resistance
CPT/HCPCS: 96372

== ENCOUNTER 2021-09-27 09:15 | Outpatient (CLI) | payer MEDICARE, SELFPAY ==
[2018-12-13 11:07] VITALS: BMI 26.3
[2021-09-27] MEDS: Ertapenem Sod 1 GM/10 ML Vial IM (09:43)
== END 2021-09-27 09:40 | disposition home or self-care (01) ==
LOC: MEDOUTP 09:16 → MS3 09:18
PROVIDERS: PCP Family Medicine; Referring Provider Internal Medicine Infectious Disease; Visit Provider Internal Medicine Infectious Disease
DX: B99.9 Unspecified infectious disease (principal); Z16.12 Extended spectrum beta lactamase (ESBL) resistance
CPT/HCPCS: 96372

== ENCOUNTER 2021-09-28 08:28 | Outpatient (CLI) | payer MEDICARE, SELFPAY ==
[2018-12-13 11:07] VITALS: BMI 26.3
[2021-09-28] MEDS: Ertapenem Sod 1 GM/10 ML Vial IM (09:22)
== END 2021-09-28 09:31 | disposition home or self-care (01) ==
LOC: MEDOUTP 08:29 → MS3 08:29
PROVIDERS: PCP Family Medicine; Visit Provider Internal Medicine Infectious Disease
DX: B99.9 Unspecified infectious disease (principal); Z16.12 Extended spectrum beta lactamase (ESBL) resistance
CPT/HCPCS: 96372

== ENCOUNTER → 2021-09-29 | Outpatient (CLI) | payer MEDICARE, SELFPAY ==
[2018-12-13 11:07] VITALS: BMI 26.3
[2021-09-29 08:53] VITALS: BP 112/66; PULSE 88; RESP 16; TEMP 36.6; O2SAT 98
[2021-09-29] MEDS: Ertapenem Sod 1 GM/10 ML Vial IM (09:11)
[2021-09-29 09:39] LABS: Hematocrit 47.9 % (40-54); Hemoglobin 15.5 g/dL (13.0-16.5); Mean Corp Hgb Conc 32.4 g/dL (32-36); Mean Corpuscular Hgb 29.6 pg (27.0-32.0); Mean Corpuscular Volume 91.4 fL (80-94); Mean Platelet Vol. 9.6 fl (6.2-12.0); Platelet Count 318 K/mm3 (150-450); RBC Distribution Width CV 15.9 % (11.6-14.6); RBC Distribution Width SD 53.7 fl (35.1-43.9); Red Blood Count 5.24 M/mm3 (4.6-6.2); White Blood Count 8.1 K/mm3 (4.4-11.0)
[2021-09-29 09:50] LABS: International Normalized Ratio 2.8; Prothrombin Time (Protime)PT. 29.1 SECONDS (11.7-14.9)
[2021-09-29 10:01] LABS: AST(SGOT) 28 U/L (15-37); Alanine Aminotransfer ALT/SGPT 48 U/L (16-61); Albumin, Serum 3.4 g/dL (3.2-5.0); Alkaline Phosphatase 99 U/L (45-117); Anion Gap 6 (5-15); BUN 15 mg/dL (7-18); BUN/Creat Ratio 12.2 RATIO (10-20); Bilirubin, Direct 0.14 mg/dL (0.00-0.30); Calcium,Total 9.5 mg/dL (8.5-10.1); Chloride 104 mmol/L (98-107); Creatinine, Serum 1.23 mg/dL (0.70-1.30); EST Glomerular Filtration Rate 64 mL/min (>60); Est Glom Filt Rate - Afr Amer 77 mL/min (>60); Globulin 4.5 g/dL (2.2-4.2); Glucose 93 mg/dL (74-106); Protein, Total 7.9 g/dL (6.4-8.2); Sodium Level 138 mmol/L (136-145)
[2021-09-29 17:35] LABS: Xtra Tube EP Lab EXTRA TUBE
== END | disposition home or self-care (01) ==
LOC: MEDOUTP 08:38
PROVIDERS: PCP Family Medicine; Referring Provider Internal Medicine Infectious Disease; Visit Provider Internal Medicine Infectious Disease
DX: B99.9 Unspecified infectious disease (principal); Z16.12 Extended spectrum beta lactamase (ESBL) resistance; Z86.73 Personal history of transient ischemic attack (TIA), and cerebral infarction without residual deficits; Z79.01 Long term (current) use of anticoagulants
CPT/HCPCS: 36415; 80048; 80076; 85027; 85610; 96372

== ENCOUNTER → 2021-09-30 | Outpatient (CLI) | payer MEDICARE, SELFPAY ==
[2018-12-13 11:07] VITALS: BMI 26.3
[2021-09-30 09:32] VITALS: BP 104/60; PULSE 70; RESP 14; TEMP 36.3; BMI 28.5
[2021-09-30] MEDS: Ertapenem Sod 1 GM/10 ML Vial IM (09:52)
== END | disposition home or self-care (01) ==
LOC: MEDOUTP 09:19
PROVIDERS: PCP Family Medicine; Referring Provider Internal Medicine Infectious Disease; Visit Provider Internal Medicine Infectious Disease
DX: B99.9 Unspecified infectious disease (principal); Z16.12 Extended spectrum beta lactamase (ESBL) resistance
CPT/HCPCS: 96372

== ENCOUNTER → 2021-10-01 | Outpatient (CLI) | payer MEDICARE, SELFPAY ==
[2018-12-13 11:07] VITALS: BMI 26.3
[2021-10-01 08:49] VITALS: BP 101/54; PULSE 89; RESP 16; TEMP 35.9; BMI 29.0
[2021-10-01] MEDS: Ertapenem Sod 1 GM/10 ML Vial IM (09:06)
== END | disposition home or self-care (01) ==
LOC: MEDOUTP 08:43
PROVIDERS: PCP Family Medicine; Referring Provider Internal Medicine Infectious Disease; Visit Provider Internal Medicine Infectious Disease
DX: B99.9 Unspecified infectious disease (principal); Z16.12 Extended spectrum beta lactamase (ESBL) resistance
CPT/HCPCS: 96372

== ENCOUNTER → 2021-10-02 | Outpatient (CLI) | payer MEDICARE, SELFPAY ==
[2018-12-13 11:07] VITALS: BMI 26.3
[2021-10-02 09:05] VITALS: BP 102/61; PULSE 82; RESP 16; TEMP 36.2; O2SAT 97; BMI 29.0
[2021-10-02] MEDS: Ertapenem Sod 1 GM/10 ML Vial IM (09:29)
== END | disposition home or self-care (01) ==
LOC: MEDOUTP 08:34
PROVIDERS: PCP Family Medicine; Referring Provider Internal Medicine Infectious Disease; Visit Provider Internal Medicine Infectious Disease
DX: B99.9 Unspecified infectious disease (principal); Z16.12 Extended spectrum beta lactamase (ESBL) resistance
CPT/HCPCS: 96372

== ENCOUNTER → 2021-10-03 | Outpatient (CLI) | payer MEDICARE, SELFPAY ==
[2018-12-13 11:07] VITALS: BMI 26.3
[2021-10-03 08:53] VITALS: BP 94/58; PULSE 79; RESP 16; TEMP 36.6; O2SAT 98; BMI 29.1
[2021-10-03] MEDS: Ertapenem Sod 1 GM/10 ML Vial IM (08:59)
== END | disposition home or self-care (01) ==
LOC: MEDOUTP 08:29
PROVIDERS: PCP Family Medicine; Referring Provider Internal Medicine Infectious Disease; Visit Provider Internal Medicine Infectious Disease
DX: B99.9 Unspecified infectious disease (principal); Z16.12 Extended spectrum beta lactamase (ESBL) resistance
CPT/HCPCS: 96372

== ENCOUNTER → 2021-10-07 | Outpatient (CLI) | payer MEDICARE, SELFPAY ==
[2018-12-13 11:07] VITALS: BMI 26.3
[2021-10-07 16:19] LABS: Absolute Lymphocyte Count 2.47 X10^3/uL (0.83-4.51); Absolute Neutrophil Count 4.6 X10^3/uL (2.0-7.7); Basophil% 1.1 % (0-1); Eosinophil# 1.18 X10^3/uL; Eosinophils% 13.1 % (0-5); Hematocrit 45.4 % (40-54); Hemoglobin 15.1 g/dL (13.0-16.5); Lymphocyte # 2.47 X10^3/ul (0.83-4.51); Lymphocyte % 27.5 % (19-41); Mean Corp Hgb Conc 33.3 g/dL (32-36); Mean Corpuscular Hgb 29.7 pg (27.0-32.0); Mean Corpuscular Volume 89.4 fL (80-94); Mean Platelet Vol. 10.4 fl (6.2-12.0); Monocyte# 0.57 X10^3/uL; Monocyte% 6.3 % (0-10); NRBC Flagged by Analyzer 0 % (0-5); Neutrophil # 4.63 X10^3/uL (2.7-7.7); Neutrophil % 51.7 % (47-70); Platelet Count 241 K/mm3 (150-450); RBC Distribution Width CV 15.6 % (11.6-14.6); RBC Distribution Width SD 51.4 fl (35.1-43.9); Red Blood Count 5.08 M/mm3 (4.6-6.2)
[2021-10-07 16:41] LABS: BNP,B-Type NATRIURETIC PEPTIDE 44.3 pg/mL (0-100)
[2021-10-07 16:42] LABS: Anion Gap 5 (5-15); BUN 20 mg/dL (7-18); BUN/Creat Ratio 15.5 RATIO (10-20); Calcium,Total 9.9 mg/dL (8.5-10.1); Chloride 104 mmol/L (98-107); Creatinine, Serum 1.29 mg/dL (0.70-1.30); EST Glomerular Filtration Rate 61 mL/min (>60); Est Glom Filt Rate - Afr Amer 73 mL/min (>60); Glucose 116 mg/dL (74-106); Sodium Level 138 mmol/L (136-145)
== END | disposition home or self-care (01) ==
LOC: LAB 15:29
PROVIDERS: PCP Family Medicine; Visit Provider Nurse Practitioner Gerontology
DX: R06.09 Other forms of dyspnea (principal)
CPT/HCPCS: 36415; 80048; 83880; 85025

== ENCOUNTER 2021-10-30 13:06 | Outpatient (RCR) | payer MEDICARE, SELFPAY ==
[2018-12-13 11:07] VITALS: BMI 26.3
[2021-10-22 17:15] LABS: International Normalized Ratio 3.7; Prothrombin Time (Protime)PT. 36.3 SECONDS (11.7-14.9)
[2021-10-30 13:33] LABS: International Normalized Ratio 2.8; Prothrombin Time (Protime)PT. 29.1 SECONDS (11.7-14.9)
== END 2021-10-30 18:00 | disposition home or self-care (01) ==
LOC: LAB 13:06
PROVIDERS: Internal Medicine Cardiovascular Disease; PCP Family Medicine; Visit Provider Nurse Practitioner Family
DX: Z86.73 Personal history of transient ischemic attack (TIA), and cerebral infarction without residual deficits (principal); Z79.01 Long term (current) use of anticoagulants
CPT/HCPCS: 36415; 85610